=== PATIENT | male | born 1990 | race Two or more races ===

== ENCOUNTER 2022-09-22 05:36 | Emergency (ER) | payer MEDICAID ==
[~2022-09-22] VITALS: Ht 170.2 cm; Wt 115.0 kg
[2022-09-22 06:48] LABS: Basophils # (auto) 0.1 10 ^3/uL (0-0.2); Basophils % (auto) 0.9 % (0.0-2.0); Eosinophils # (auto) 0 10 ^3/uL (0-0.8); Eosinophils % (auto) 0.4 % (0.0-7.0); Hematocrit 43.1 % (41.0-53.0); Hemoglobin 15.1 g/dL (13.5-17.5); Lymphocytes # (auto) 1.2 10 ^3/uL (0.4-5.4); Lymphocytes % (auto) 12.8 % (10.0-50.0); Mean Corpuscular Hemoglobin 30.6 pg (28.0-32.0); Mean Corpuscular Hgb Conc. 35.1 g/dL (32.0-36.0); Mean Corpuscular Volume 87.1 fL (80.0-100.0); Monocytes # (auto) 0.8 10 ^3/uL (0-1.3); Monocytes % (auto) 8.7 % (0.0-12.0); Neutrophils # (auto) 7.1 10 ^3/uL (1.6-8.6); Neutrophils % (auto) 77.2 % (37.0-80.0); Red Blood Cells 4.95 10^6/uL (4.5-5.90); Red Cell Distribution Width 13.2 % (11.8-14.3); White Blood Cell 9.1 10^3/uL (4.4-10.8)
[2022-09-22 07:03] LABS: Albumin 3.8 g/dL (3.4-5.0); Calcium 8.8 mg/dL (8.5-10.1); Potassium 4.3 mmol/L (3.5-5.1)
[2022-09-22 07:06] LABS: BUN/Creatinine Ratio 10.5 (10.0-20.0); Bilirubin, Total 0.4 mg/dL (0.2-1.0); Total Protein 8.1 g/dL (6.4-8.2)
[2022-09-22 09:12] LABS: Urine Bacteria NONE SEEN /hpf (None Seen); Urine Blood Negative /uL (Negative); Urine Specific Gravity 1.012 (1.001-1.035); Urine WBC 2 /hpf (0 - 3)
[2022-09-22] MEDS ORDERED: cefTRIAXone SOD 1,000 MG VL IM ONE (10:00)
[2022-09-22] MEDS ORDERED: AZITHROMYCIN 250 MG TAB PO ONE (10:00)
[2022-09-22] MEDS ORDERED: KETOROLAC TROMETH 60MG/2ML VIAL IM ONE (10:15)
[2022-09-22 11:34] VITALS: BP 120/51
== END 2022-09-22 11:41 | disposition home or self-care (01) ==
LOC: ER 05:36
DX: R59.0 Localized enlarged lymph nodes (principal)
CPT/HCPCS: 36415; 74176; 80053; 81001; 83690; 85025; 96372; 99285; J0696; J1885

== ENCOUNTER 2023-04-12 02:52 | Emergency (ER) | payer MEDICAID ==
[~2023-04-12] VITALS: Ht 170.2 cm; Wt 111.3 kg
[2023-04-12 03:33] LABS: Basophils # (auto) 0.2 10 ^3/uL (0-0.2); Eosinophils # (auto) 0.3 10 ^3/uL (0-0.8); Eosinophils % (auto) 2.7 % (0.0-7.0); Hematocrit 45.3 % (41.0-53.0); Hemoglobin 14.9 g/dL (13.5-17.5); Lymphocytes # (auto) 2.3 10 ^3/uL (0.4-5.4); Lymphocytes % (auto) 23.7 % (10.0-50.0); Mean Corpuscular Hgb Conc. 32.8 g/dL (32.0-36.0); Mean Corpuscular Volume 91.3 fL (80.0-100.0); Neutrophils # (auto) 5.9 10 ^3/uL (1.6-8.6); Neutrophils % (auto) 61.6 % (37.0-80.0); Nucleated Red Blood Cells % 0.5 %; Red Blood Cells 4.96 10^6/uL (4.5-5.90); Red Cell Distribution Width 13.6 % (11.8-14.3); White Blood Cell 9.5 10^3/uL (4.4-10.8)
[2023-04-12 03:45] LABS: Alanine Aminotransferase 16 U/L (7-40); Albumin 4.4 g/dL (3.2-4.8); Alkaline Phosphatase 85 U/L (46-116); Anion Gap 7 (5-15); Aspartate Aminotransferase 9 U/L (13-40); BUN/Creatinine Ratio 8.1 (10.0-20.0); Blood Urea Nitrogen 7 mg/dL (9-23); Carbon Dioxide 27 mmol/L (20-30); Chloride 109 mmol/L (98-107); Glucose 107 mg/dL (74-106); Potassium 3.8 mmol/L (3.5-5.1); Sodium 143 mmol/L (136-145)
[2023-04-12 03:46] LABS: Bilirubin, Total 0.4 mg/dL (0.2-1.0); Total Protein 7.3 g/dL (5.7-8.2)
[2023-04-12] MEDS ORDERED: IOHEXOL 350 MG/ML 100ML IJ ONE (03:52)
[2023-04-12 04:07] LABS: Magnesium 2.2 mg/dL (1.6-2.6)
[2023-04-12] MEDS ORDERED: METH4PAK PO (06:18)
[2023-04-12] MEDS ORDERED: DIPH25CA66 PO (06:18)
[2023-04-12 06:21] VITALS: BP 118/74; PULSE 87; RESP 20; TEMP 98.5; O2SAT 99
== END 2023-04-12 06:31 | disposition home or self-care (01) ==
LOC: ER 02:52
DX: R06.02 Shortness of breath (principal); R79.1 Abnormal coagulation profile; R07.89 Other chest pain; Z79.899 Other long term (current) drug therapy
CPT/HCPCS: 36415; 71046; 71275; 80053; 83735; 83880; 84484; 85025; 85379; 93005; 93971; 99285; Q9967

== ENCOUNTER 2023-04-16 02:38 | Emergency (ER) | payer MEDICAID ==
[~2023-04-16] VITALS: Ht 170.2 cm; Wt 110.8 kg
[~2023-04-16 02:38] MED LIST: DIPH25CA66 PO; METH4PAK PO
[2023-04-16 03:17] LABS: Basophils # (auto) 0 10 ^3/uL (0-0.2); Basophils % (auto) 0.2 % (0.0-2.0); Eosinophils # (auto) 0 10 ^3/uL (0-0.8); Eosinophils % (auto) 0.1 % (0.0-7.0); Hematocrit 48.9 % (41.0-53.0); Hemoglobin 16.4 g/dL (13.5-17.5); Lymphocytes # (auto) 1.3 10 ^3/uL (0.4-5.4); Lymphocytes % (auto) 8.4 % (10.0-50.0); Mean Corpuscular Hemoglobin 29.6 pg (28.0-32.0); Mean Corpuscular Hgb Conc. 33.5 g/dL (32.0-36.0); Mean Corpuscular Volume 88.4 fL (80.0-100.0); Monocytes # (auto) 1.4 10 ^3/uL (0-1.3); Monocytes % (auto) 9.6 % (0.0-12.0); Neutrophils # (auto) 12.2 10 ^3/uL (1.6-8.6); Neutrophils % (auto) 81.7 % (37.0-80.0); Nucleated Red Blood Cells % 0.3 %; Red Blood Cells 5.52 10^6/uL (4.5-5.90); Red Cell Distribution Width 13.9 % (11.8-14.3)
[2023-04-16 03:30] LABS: Alanine Aminotransferase 18 U/L (7-40); Albumin 4.6 g/dL (3.2-4.8); Alkaline Phosphatase 82 U/L (46-116); Anion Gap 5 (5-15); Aspartate Aminotransferase 10 U/L (13-40); BUN/Creatinine Ratio 13.3 (10.0-20.0); Blood Urea Nitrogen 12 mg/dL (9-23); Calcium 9.2 mg/dL (8.7-10.4); Carbon Dioxide 31 mmol/L (20-30); Chloride 102 mmol/L (98-107); Glucose 155 mg/dL (74-106); Lipase 37 U/L (12-53); Potassium 4.4 mmol/L (3.5-5.1); Sodium 138 mmol/L (136-145)
[2023-04-16 03:31] LABS: Bilirubin, Total 0.6 mg/dL (0.2-1.0); Total Protein 7.8 g/dL (5.7-8.2)
[2023-04-16 07:12] LABS: Urine Bacteria NONE SEEN /hpf (None Seen); Urine Blood Negative /uL (Negative); Urine Clarity Clear (Clear); Urine Color Yellow (Yellow); Urine Mucus FEW (None Seen); Urine Protein, UAD 1+ (Negative); Urine Specific Gravity 1.036 (1.001-1.035); Urine Urobilinogen Normal (Negative); Urine WBC 6 /hpf (0 - 3); Urine pH 5.5 (5.0-8.0)
[2023-04-16 07:16] LABS: Amphetamine Screen, Urine Neg (NEGATIVE); Barbiturate Scree,Urine Neg (NEGATIVE); Benzodiazephine Screen, Urine Neg (NEGATIVE); Cocaine Screen, Urine Neg (NEGATIVE); Opiate Scree,Urine Neg (NEGATIVE)
[2023-04-16 07:17] LABS: Cannabinoid Screen, Urine Neg (NEGATIVE); Phencyclidine Screen, Urine Neg (NEGATIVE)
[2023-04-16] MEDS ORDERED: cefTRIAXone SOD 1,000 MG VL IM ONE (07:45)
[2023-04-16 08:05] VITALS: BP 107/71; PULSE 121; RESP 18; TEMP 97.6; O2SAT 98
[2023-04-16] MEDS ORDERED: METR-344 PO (08:34)
[2023-04-16] MEDS ORDERED: ZOFR4T PO (08:34)
== END 2023-04-16 08:52 | disposition home or self-care (01) ==
LOC: ER 02:38
DX: K52.9 Noninfective gastroenteritis and colitis, unspecified (principal); Z79.899 Other long term (current) drug therapy
CPT/HCPCS: 36415; 74176; 80053; 80307; 81001; 83690; 85025; 96372; 99285; J0696

== ENCOUNTER 2024-02-10 03:05 | Inpatient (IN) | payer MEDICAID ==
[~2024-02-10] VITALS: Ht 180.3 cm; Wt 86.0 kg
[~2024-02-10 03:05] MED LIST changes: +METR-344 PO; +SEVE800T10 PO; +SODI650T PO; +ZOFR4T PO
[2024-02-10 03:20] VITALS: PULSE 103; RESP 14; O2SAT 100
[2024-02-10] MEDS: SODIUM CHLORIDE 0.9% 1,000 ML IV ONE ×2 (03:41→04:04)
[2024-02-10] MEDS: MORPHINE SULFATE 4 MG/ML SYR/VIAL IV ONE (03:41)
[2024-02-10] MEDS: ONDANSETRON HCL 4 MG/2 ML VIAL IV ONE (03:43)
[2024-02-10] MEDS: KETOROLAC TROMETH 30 MG/ML 1ML VIAL IV ONE (04:03)
[2024-02-10 04:21] LABS: Hemoglobin 11.2 g/dL (13.5-17.5); Platelet Count (auto) 271 10^3/uL (140-450)
[2024-02-10 04:27] LABS: Hematocrit 34.5 % (41.0-53.0); Mean Corpuscular Hemoglobin 30.4 pg (28.0-32.0); Mean Corpuscular Hgb Conc. 32.5 g/dL (32.0-36.0); Mean Corpuscular Volume 93.4 fL (80.0-100.0); Red Blood Cells 3.69 10^6/uL (4.5-5.90); Red Cell Distribution Width 16.5 % (11.8-14.3)
[2024-02-10 04:30] LABS: Chloride 109 mmol/L (98-107); Sodium 141 mmol/L (136-145)
[2024-02-10 04:31] LABS: Anion Gap 19 (5-15); Calcium 7.9 mg/dL (8.7-10.4); Carbon Dioxide 13 mmol/L (20-31)
[2024-02-10 04:36] LABS: BUN/Creatinine Ratio 16.7 (10.0-20.0); Glucose 237 mg/dL (74-106)
[2024-02-10 04:55] LABS: Potassium 5.8 mmol/L (3.5-5.1); White Blood Cell 46.9 10^3/uL (4.4-10.8)
[2024-02-10 04:56] LABS: Basophils % (manual) 0 (0.0-2.0); Blast Cells 0; Blood Urea Nitrogen 93 mg/dL (9-23); Eosinophils % (manual) 0 (0-7); Lymphocytes % (manual) 0 (10.0-50.0); Metamyelocytes % 0; Myelocytes % 0; Promyelocytes % 0; Reactive Lymphocytes 0
[2024-02-10] MEDS: SODIUM ZIRCONIUM CYCL 10 GM PAK PO ONE (05:13)
[2024-02-10] MEDS: InsuLIN REG 1unit/0.01ml Soln (100units/ml) IV ONE (05:13)
[2024-02-10] MEDS: CALCIUM GLUC 1,000mg/50ml-NS 50 ML IV ONE (05:14)
[2024-02-10] MEDS: DEXTROSE (50%) 50ML SYRG IV ONE (05:14)
[2024-02-10] MEDS: SODIUM BICARB 8.4% 50Meq/50ml SYR INJ IV ONE (05:15)
[2024-02-10] MEDS: ALBUTEROL SULF 2.5 MG/0.5ML(0.5%) NEB SOLN NEB ONE (05:19)
[2024-02-10] MEDS: FUROSEMIDE 20 MG/2 ML VIAL IV ONE (05:34)
[2024-02-10] MEDS: metroNIDAZOLE 500MG/100ML 100 ML IV ONE (05:34)
[2024-02-10 06:21] LABS: Band Neutrophils % (manual) 1; Monocytes % (manual) 4 (0-12); Platelet Estimate Adequate
[2024-02-10] MEDS: PIPERACILLIN-TAZOB 3.375GM 100 ML IV ONE (06:21)
[2024-02-10 07:30] VITALS: PULSE 95; RESP 18; O2SAT 97
[2024-02-10] MEDS: SODIUM BICARB 8.4% 50Meq/50ml SYR Vial IV ONE (09:25)
[2024-02-10] MEDS: BUMETANIDE 2.5mg/10ml (0.25 mg/ml) INJ IV ONE (09:26)
[2024-02-10] MEDS ORDERED: HYDROcodone-ACET 5/325MG TAB PO PRN (10:00)
[2024-02-10] MEDS ORDERED: cefTRIAXone 2GM/50ML D5W 50 ML IV SCH ×2 (10:00→10:15)
[2024-02-10] MEDS ORDERED: MORPHINE SULFATE INJ 2 MG/ml SYRG IV PRN (10:00)
[2024-02-10] MEDS ORDERED: DOCUSATE SOD 100 MG CAP PO PRN ×2 (10:00→10:15)
[2024-02-10] MEDS ORDERED: ONDANSETRON HCL 4 MG/2 ML VIAL IV PRN (10:00)
[2024-02-10] MEDS ORDERED: SODIUM CHLORIDE 0.9% 1,000 ML IV SCH (10:00)
[2024-02-10] MEDS ORDERED: LACTULOSE 20Gm/30ML SOLN PO ONE (10:00)
[2024-02-10] MEDS ORDERED: ACETAMINOPHEN 325 MG TAB PO PRN ×2 (10:00→10:15)
[2024-02-10 10:08] LABS: Urine Bacteria FEW /hpf (None Seen); Urine Blood Negative /uL (Negative); Urine Clarity Turbid (Clear); Urine Color Light-Yellow (Yellow); Urine Protein, UAD 1+ (Negative); Urine Specific Gravity 1.011 (1.001-1.035); Urine Urobilinogen Normal (Negative); Urine WBC 37 /hpf (0 - 3); Urine pH 5.5 (5.0-9.0)
[2024-02-10] MEDS ORDERED: FIN5T PO (10:15)
[2024-02-10] MEDS ORDERED: AMLO1TAB23 PO (10:15)
[2024-02-10] MEDS ORDERED: CARV3.1240 PO (10:15)
[2024-02-10] MEDS ORDERED: DEXTROSE (50%) 50ML SYRG IV PRN (10:15)
[2024-02-10] MEDS ORDERED: TAMS0.4C39 PO (10:15)
[2024-02-10 10:33] LABS: Triglycerides 125 mg/dL (< 150)
[2024-02-10 10:34] LABS: LDL Cholesterol 121 mg/dL (< 100)
[2024-02-10 10:35] LABS: Cholesterol 193 mg/dL (< 200); HDL Cholesterol 52 mg/dL (40-59)
[2024-02-10] MEDS: ONDANSETRON HCL 4 MG/2 ML VIAL IV PRN (11:12)
[2024-02-10] MEDS: LACTULOSE 20Gm/30ML SOLN PO ONE (11:12)
[2024-02-10] MEDS: amLODIPine BESYLATE 5 MG TAB PO SCH (11:12)
[2024-02-10] MEDS: MORPHINE SULFATE INJ 2 MG/ml SYRG IV PRN (11:13)
[2024-02-10] MEDS: SODIUM CHLORIDE 0.9% 1,000 ML IV SCH (11:14)
[2024-02-10] MEDS: ACCU-CHEK COMFORT CURVE STRIP VI SCH (11:51)
[2024-02-10] MEDS: InsuLIN REG 1unit/0.01ml Soln (100units/ml) SC SCH ×2 (11:51→21:30)
[2024-02-10] MEDS: cefTRIAXone 1GM/50ML D5W 50 ML IV SCH (13:19)
[2024-02-10] MEDS: SEVELAMER 800 MG TAB PO SCH (18:10)
[2024-02-10 20:19] VITALS: PULSE 85; RESP 14; O2SAT 96
[2024-02-10] MEDS: CARVEDILOL 3.125 MG TAB PO SCH (21:38)
[2024-02-10] MEDS: SODIUM ZIRCONIUM CYCL 10 GM PAK PO SCH (21:38)
[2024-02-10] MEDS: DOCUSATE SOD 100 MG CAP PO SCH (21:39)
[2024-02-10 22:30] VITALS: BP 116/74; PULSE 89; RESP 18; TEMP 97.7; O2SAT 95
[2024-02-10 22:56] VITALS: PULSE 89; RESP 18; O2SAT 97
[2024-02-11] VITALS (7 sets, daily range): BP systolic 108–128; BP diastolic 66–90; PULSE 68–132; RESP 18–20; TEMP 97.8–98.7; O2SAT 90–94
[2024-02-11] MEDS: TAMSULOSIN HYDROCHLORIDE 0.4 MG CAP PO SCH (06:52)
[2024-02-11 07:00] LABS: Hemoglobin 10.5 g/dL (13.5-17.5)
[2024-02-11 07:07] LABS: Hematocrit 31.8 % (41.0-53.0); Mean Corpuscular Hemoglobin 30.1 pg (28.0-32.0); Mean Corpuscular Volume 91.2 fL (80.0-100.0); Platelet Count (auto) 229 10^3/uL (140-450); Red Blood Cells 3.49 10^6/uL (4.5-5.90); Red Cell Distribution Width 15.9 % (11.8-14.3)
[2024-02-11 07:16] LABS: Alanine Aminotransferase 62 U/L (7-40); Albumin 3.3 g/dL (3.2-4.8); Alkaline Phosphatase 100 U/L (46-116); Anion Gap 12 (5-15); Aspartate Aminotransferase 47 U/L (13-40); BUN/Creatinine Ratio 14.8 (10.0-20.0); Blood Urea Nitrogen 79 mg/dL (9-23); Calcium 6.9 mg/dL (8.7-10.4); Carbon Dioxide 20 mmol/L (20-31); Chloride 105 mmol/L (98-107); Potassium 4.7 mmol/L (3.5-5.1); Sodium 137 mmol/L (136-145)
[2024-02-11 07:17] LABS: Bilirubin, Total 0.9 mg/dL (0.2-1.0); Glucose 130 mg/dL (74-106); Total Protein 5.9 g/dL (5.7-8.2)
[2024-02-11 07:46] LABS: Band Neutrophils % (manual) 0; Basophils % (manual) 0 (0.0-2.0); Blast Cells 0; Eosinophils % (manual) 0 (0-7); Metamyelocytes % 0; Myelocytes % 0; Promyelocytes % 0; Reactive Lymphocytes 0
[2024-02-11] MEDS ORDERED: cefTRIAXone 1GM/50ML D5W 50 ML IV SCH (09:00)
[2024-02-11] MEDS: FINASTERIDE 5 MG TAB PO SCH (09:46)
[2024-02-11] MEDS: PANTOPRAZOLE 40 MG/10 ML VIAL INJ IV SCH (09:48)
[2024-02-11 10:15] LABS: Lymphocytes % (manual) 4 (10.0-50.0); Monocytes % (manual) 6 (0-12); Platelet Estimate Adequate
[2024-02-11 11:39] LABS: Magnesium 1.7 mg/dL (1.6-2.6)
[2024-02-11 11:41] LABS: Phosphorus 6.2 mg/dL (2.4-5.1)
[2024-02-11] MEDS: CALCIUM ACETATE 667 MG CAP PO SCH (12:03)
[2024-02-11 13:29] LABS: Hepatitis B Surface Antigen Negative (Negative)
[2024-02-11 13:50] LABS: Hepatitis C Antibody Negative (Negative)
[2024-02-11] MEDS: FLEET ENEMA(ADULT) 135 ML PR ONE (17:56)
[2024-02-11] MEDS: PIPERACILLIN-TAZOB 3.375GM 100 ML IV SCH (17:57)
[2024-02-12] VITALS (8 sets, daily range): BP systolic 111–140; BP diastolic 69–90; PULSE 73–132; RESP 17–20; TEMP 97.8–98.3; O2SAT 91–100
[2024-02-12 06:27] LABS: Hematocrit 29.2 % (41.0-53.0); Hemoglobin 9.7 g/dL (13.5-17.5); Mean Corpuscular Hemoglobin 30.4 pg (28.0-32.0); Mean Corpuscular Hgb Conc. 33.3 g/dL (32.0-36.0); Mean Corpuscular Volume 91.2 fL (80.0-100.0); Platelet Count (auto) 210 10^3/uL (140-450); Red Cell Distribution Width 15.6 % (11.8-14.3)
[2024-02-12 06:38] LABS: Alanine Aminotransferase 79 U/L (7-40); Albumin 3.1 g/dL (3.2-4.8); Alkaline Phosphatase 94 U/L (46-116); Anion Gap 12 (5-15); Aspartate Aminotransferase 27 U/L (13-40); BUN/Creatinine Ratio 13.2 (10.0-20.0); Blood Urea Nitrogen 70 mg/dL (9-23); Calcium 6.8 mg/dL (8.7-10.4); Carbon Dioxide 20 mmol/L (20-31); Chloride 104 mmol/L (98-107); Glucose 96 mg/dL (74-106); Potassium 4.3 mmol/L (3.5-5.1); Sodium 136 mmol/L (136-145); Total Protein 5.6 g/dL (5.7-8.2)
[2024-02-12 06:39] LABS: Bilirubin, Total 0.8 mg/dL (0.2-1.0)
[2024-02-12 06:47] LABS: White Blood Cell 32.4 10^3/uL (4.4-10.8)
[2024-02-12 06:49] LABS: Band Neutrophils % (manual) 0; Basophils % (manual) 0 (0.0-2.0); Blast Cells 0; Eosinophils % (manual) 0 (0-7); Metamyelocytes % 0; Myelocytes % 0; Promyelocytes % 0; Reactive Lymphocytes 0
[2024-02-12 08:30] LABS: Lymphocytes % (manual) 5 (10.0-50.0); Monocytes % (manual) 7 (0-12); Platelet Estimate Adequate
[2024-02-12] MEDS: IOHEXOL 300 MG/ML 100ML BOTTLE IJ ONE (11:01)
[2024-02-12] MEDS: CALCITRIOL 0.25 MCG CAP PO SCH (12:26)
[2024-02-13] VITALS (12 sets, daily range): BP systolic 96–120; BP diastolic 54–83; PULSE 97–131; RESP 16–24; TEMP 97.2–98.2; O2SAT 95–100
[2024-02-13] MEDS: HYDROcodone-ACET 5/325MG TAB PO PRN (01:33)
[2024-02-13 06:53] LABS: Basophils # (auto) 0 10 ^3/uL (0-0.2); Basophils % (auto) 0.2 % (0.0-2.0); Eosinophils # (auto) 0.1 10 ^3/uL (0-0.8); Eosinophils % (auto) 0.5 % (0.0-7.0); Hematocrit 29.2 % (41.0-53.0); Hemoglobin 9.6 g/dL (13.5-17.5); Lymphocytes # (auto) 2.2 10 ^3/uL (0.4-5.4); Lymphocytes % (auto) 9.5 % (10.0-50.0); Mean Corpuscular Hemoglobin 30.1 pg (28.0-32.0); Mean Corpuscular Volume 91.1 fL (80.0-100.0); Monocytes # (auto) 1.9 10 ^3/uL (0-1.3); Monocytes % (auto) 8.2 % (0.0-12.0); Neutrophils # (auto) 18.9 10 ^3/uL (1.6-8.6); Neutrophils % (auto) 81.6 % (37.0-80.0); Platelet Count (auto) 209 10^3/uL (140-450); Red Cell Distribution Width 15.8 % (11.8-14.3); White Blood Cell 23.2 10^3/uL (4.4-10.8)
[2024-02-13 07:00] LABS: Chloride 105 mmol/L (98-107); Sodium 135 mmol/L (136-145)
[2024-02-13 07:01] LABS: Anion Gap 10 (5-15); Carbon Dioxide 20 mmol/L (20-31)
[2024-02-13 07:02] LABS: Calcium 7.4 mg/dL (8.7-10.4)
[2024-02-13 07:06] LABS: Glucose 118 mg/dL (74-106)
[2024-02-13 07:07] LABS: BUN/Creatinine Ratio 11.9 (10.0-20.0); Blood Urea Nitrogen 63 mg/dL (9-23)
[2024-02-13] MEDS ORDERED: AMPICILLIN & SULBACTAM SODIUM 3 GM in SODIUM CHL 0.9% 100 ML IV SCH (10:15)
[2024-02-13] MEDS: BISACODYL 10 MG RECT SUPP PR ONE (12:04)
[2024-02-13] MEDS: AMPICILLIN & SULBACTAM SODIUM 3 GM in SODIUM CHL 0.9% 100 ML IV SCH (12:21)
[2024-02-13] MEDS: METOPROLOL SUCCINATE XL 50 MG TAB PO ONE (17:15)
[2024-02-13] MEDS: AMIODARONE BOLUS KIT 100 ML IV ONE (17:53)
[2024-02-13] MEDS: AMIODARONE 450mg/250ml AE 250 ML IV SCH ×2 (18:13→23:00)
[2024-02-13] MEDS: APIXABAN 5 MG TAB PO SCH (22:08)
[2024-02-14] VITALS (7 sets, daily range): BP systolic 118–141; BP diastolic 79–101; PULSE 74–123; RESP 16–20; TEMP 98–98.6; O2SAT 93–97
[2024-02-14] MEDS ORDERED: MEROPENEM 1GM IVPB 50 ML IV SCH (05:15)
[2024-02-14] MEDS: MEROPENEM 1GM IVPB 50 ML IV SCH (05:15)
[2024-02-14 06:34] LABS: Basophils # (auto) 0.1 10 ^3/uL (0-0.2); Basophils % (auto) 0.3 % (0.0-2.0); Eosinophils # (auto) 0.1 10 ^3/uL (0-0.8); Eosinophils % (auto) 0.4 % (0.0-7.0); Hematocrit 30.4 % (41.0-53.0); Lymphocytes # (auto) 1.7 10 ^3/uL (0.4-5.4); Lymphocytes % (auto) 8.4 % (10.0-50.0); Mean Corpuscular Hemoglobin 29.6 pg (28.0-32.0); Mean Corpuscular Hgb Conc. 32.8 g/dL (32.0-36.0); Mean Corpuscular Volume 90.5 fL (80.0-100.0); Monocytes # (auto) 1.6 10 ^3/uL (0-1.3); Neutrophils # (auto) 16.9 10 ^3/uL (1.6-8.6); Neutrophils % (auto) 82.9 % (37.0-80.0); Platelet Count (auto) 245 10^3/uL (140-450); Red Blood Cells 3.36 10^6/uL (4.5-5.90); Red Cell Distribution Width 15.7 % (11.8-14.3); White Blood Cell 20.4 10^3/uL (4.4-10.8)
[2024-02-14 06:49] LABS: Uric Acid 8.3 mg/dL (3.7-9.2)
[2024-02-14 06:52] LABS: Alanine Aminotransferase 46 U/L (7-40); Albumin 3.3 g/dL (3.2-4.8); Alkaline Phosphatase 160 U/L (46-116); Anion Gap 13 (5-15); Aspartate Aminotransferase 13 U/L (13-40); BUN/Creatinine Ratio 11.6 (10.0-20.0); Blood Urea Nitrogen 60 mg/dL (9-23); Calcium 7.8 mg/dL (8.7-10.4); Carbon Dioxide 18 mmol/L (20-31); Chloride 101 mmol/L (98-107); Glucose 120 mg/dL (74-106); Potassium 3.9 mmol/L (3.5-5.1); Sodium 132 mmol/L (136-145)
[2024-02-14 06:53] LABS: Bilirubin, Total 0.5 mg/dL (0.2-1.0); Phosphorus 5.3 mg/dL (2.4-5.1); Total Protein 6.1 g/dL (5.7-8.2)
[2024-02-14] MEDS: METOPROLOL SUCCINATE XL 50 MG TAB PO SCH (10:44)
[2024-02-15] VITALS (8 sets, daily range): BP systolic 124–143; BP diastolic 81–96; PULSE 79–84; RESP 18–20; TEMP 36.6; O2SAT 93–99
[2024-02-15] MEDS: AMIODARONE HCL 200 MG TAB PO SCH (09:33)
[2024-02-15 11:16] LABS: Alanine Aminotransferase 32 U/L (7-40); Albumin 3.2 g/dL (3.2-4.8); Alkaline Phosphatase 146 U/L (46-116); Anion Gap 8 (5-15); Aspartate Aminotransferase 9 U/L (13-40); BUN/Creatinine Ratio 10.6 (10.0-20.0); Blood Urea Nitrogen 54 mg/dL (9-23); Calcium 7.9 mg/dL (8.7-10.4); Carbon Dioxide 21 mmol/L (20-31); Chloride 108 mmol/L (98-107); Glucose 109 mg/dL (74-106); Magnesium 1.7 mg/dL (1.6-2.6); Potassium 4.2 mmol/L (3.5-5.1); Sodium 137 mmol/L (136-145)
[2024-02-15 11:17] LABS: Bilirubin, Total 0.5 mg/dL (0.2-1.0); Total Protein 6.2 g/dL (5.7-8.2)
[2024-02-15] MEDS ORDERED: METO-6 PO (15:45)
[2024-02-15] MEDS ORDERED: APIX5TAB PO (15:45)
[2024-02-15] MEDS ORDERED: AMIO200T13 PO (15:45)
[2024-02-15] MEDS ORDERED: BACDST PO (15:45)
== END 2024-02-15 20:28 | disposition home or self-care (01) | DRG 465 ==
LOC: EDBD 03:05 → ER 03:05 → TELE 09:56 → TELE-WESTW 21:47
PROVIDERS: ADMIT Registered Nurse; ATTEND Student in an Organized Health Care Education/Training Program
PROC: BT111ZZ Fluoroscopy of Right Kidney using Low Osmolar Contrast (ICD-10-PCS; principal; 2024-02-12)
DX: N13.8 Other obstructive and reflux uropathy (principal); N17.0 Acute kidney failure with tubular necrosis; R65.11 Systemic inflammatory response syndrome (SIRS) of non-infectious origin with acute organ dysfunction; E83.39 Other disorders of phosphorus metabolism; D63.1 Anemia in chronic kidney disease; I13.2 Hypertensive heart and chronic kidney disease with heart failure and with stage 5 chronic kidney disease, or end stage renal disease; I27.20 Pulmonary hypertension, unspecified; E86.9 Volume depletion, unspecified; I48.91 Unspecified atrial fibrillation; K56.41 Fecal impaction; N25.81 Secondary hyperparathyroidism of renal origin; E87.5 Hyperkalemia; N39.0 Urinary tract infection, site not specified; N18.5 Chronic kidney disease, stage 5; N20.0 Calculus of kidney; N40.1 Benign prostatic hyperplasia with lower urinary tract symptoms; I50.22 Chronic systolic (congestive) heart failure; I34.0 Nonrheumatic mitral (valve) insufficiency; I07.1 Rheumatic tricuspid insufficiency; I34.81 Nonrheumatic mitral (valve) annulus calcification; E11.22 Type 2 diabetes mellitus with diabetic chronic kidney disease; G89.29 Other chronic pain; Z93.6 Other artificial openings of urinary tract status; Z79.899 Other long term (current) drug therapy; Z87.891 Personal history of nicotine dependence; Z91.199 Patient's noncompliance with other medical treatment and regimen due to unspecified reason; Z88.8 Allergy status to other drugs, medicaments and biological substances
CPT/HCPCS: 36415; 50430; 74176; 74425; 80048; 80053; 80061; 81001; 82306; 82962; 83036; 83735; 83880; 83970; 84100; 84132; 84443; 84550; 85007; 85025; 85027; 86803; 87040; 87086; 87340; 93005; 93306; 94640; 96361; 96365; 96375; 99291; G0378; J1815; J1885; J2405; J2470; J2543; J3490

== ENCOUNTER 2024-02-19 13:57 | Inpatient (IN) | payer MEDICAID ==
[~2024-02-19] VITALS: Ht 182.9 cm; Wt 66.2 kg
[2024-02-19] VITALS (16 sets, daily range): BP systolic 86–132; BP diastolic 48–91; PULSE 70–89; RESP 22–30; TEMP 95.7–96.6; O2SAT 78–100
[~2024-02-19 13:57] MED LIST changes: +AMIO200T13 PO; +AMLO1TAB23 PO; +APIX5TAB PO; +BACDST PO; +CARV3.1240 PO; -DIPH25CA66 PO; +FIN5T PO; -METH4PAK PO; +METO-289 PO; +METO-6 PO; -METR-344 PO; +TAMS0.4C39 PO; -ZOFR4T PO
[2024-02-19] MEDS: ROCURONIUM 10MG/ML 10ML VIAL IV ONE ×2 (14:14→14:19)
[2024-02-19] MEDS: ETOMIDATE (2MG/ML) 20ML VIAL IV ONE ×2 (14:18→14:51)
--- NOTE | 2024-02-19 14:27 | ED.PDOC ---
SOB-HPI HPI Comments 52-year-old male brought in by EMS on CPAP presents with a chief complaint of SOB. Patient was sating at 88% on CPAP and was successfully intubated upon bedside evaluation for respiratory insufficiency at 14:18. Patient unable to provide further medical information at this time due to intubation status. 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, Medications, Allergies Information Source: Emergency Med Personnel Mode of Arrival: EMS Severity: Moderate Timing: Minutes Duration: Since onset Context: At Rest PE Risk Factors: None Prehospital treatment: C-Pap Past Medical History PAST MEDICAL HISTORY: CHF, CKF, DM, HTN Family History Family History: No family hx of Cancer, No family hx of DM, No family hx of Heart emily Social History Smoker: Non-Smoker Alcohol: Occasionally Drugs: Denies Drug Use Lives In: Home Constitutional: denies: chills, diaphoresis, fatigue, fever, malaise, sweats, weakness, others EENTM: denies: blurred vision, double vision, ear bleeding, ear discharge, ear drainage, ear pain, ear ringing, eye pain, eye redness, hearing loss, mouth pain, mouth swelling, nasal discharge, nose bleeding, nose congestion, nose pain, photophobia, tearing, throat pain, throat swelling, voice changes, others Respiratory: reports: shortness of breath; denies: cough, hemoptysis, orthopnea, SOB at rest, SOB with excertion, stridor, wheezing, others Cardiovascular: denies: chest pain, dizzy spells, diaphoresis, Dyspnea on exertion, edema, irregular heart beat, left arm pain, lightheadedness, palpitations, PND, syncope, others Gastrointestinal: denies: abdomen distended, abdominal pain, blood streaked bowels, constipated, diarrhea, dysphagia, difficulty swallowing, hematemesis, melena, nausea, poor appetite, poor fluid intake, rectal bleeding, rectal pain, vomiting, others Genitourinary: denies: burning, dysuria, flank pain, frequency, hematuria, incontinence, penile discharge, penile sore, pain, testicle pain, testicle swell ing, urgency, others Neurological: denies: dizziness, fainting, headache, left sided numbness, left sided weakness, numbness, paresthesia, pre-existing deficit, right sided numbness, right sided weakness, seizure, speech problems, tingling, tremors, weakness, others Musculoskeletal: denies: back pain, gout, joint pain, joint swelling, muscle pain, muscle stiffness, neck pain, others Integumetry: denies: bruises, change in color, change in hair/nails, dryness, laceration, lesions, lumps, rash, wounds, others Allergic/Immunocompromised: denies: Difficulty Healing, Frequent Infections, Hives, Itching, others Hematologic/Lymphatic: denies: anemia, blood clots, easy bleeding, easy bruising, swollen glands, others Endocrine: denies: excessive hunger, excessive sweating, excessive thirst, excessive urination, flushing, intolerance to cold, intolerance to heat, unexplained weight gain, unexplained weight loss, others Psychiatric: denies: anxiety, bipolar disorder, depression, hopeless, panic disorder, schizophrenia, sleepless, suicidal, others All Other Systems: Reviewed and Negative Physical Exam General Appearance: No Apparent Distress, Normal HEENT: Normal ENT Inspection, Pharynx Normal, TMs Normal Neck: Full Range of Motion, Non-Tender, Normal, Normal Inspection Respiratory: Chest Non-Tender, Lungs Clear, No Accessory Muscle Use, No Respiratory Distress, Normal Breath Sounds Cardiovascular: No Edema, No JVD, No Murmur, No Gallop, Normal Peripheral Pulses, Regular Rate/Rhythm Breast Exam: Deferred Gastrointestinal: No Organomegaly, Non Tender, No Pulsatile Mass, Normal Bowel Sounds, Soft Genitalia: Deferred Pelvic: Deferred Rectal: Deferred Extremities: No calf tenderness, Normal capillary refill, Normal inspection, Normal range of motion, Non-tender, No pedal edema Musculoskeletal : Apperance: Normal Neurologic: Alert, tactical air control party II-XII nml as Tested, No Motor Deficits, Normal Affect, Normal Mood, No Sensory Deficits Cerebellar Function: Normal Reflexes: Normal Skin: Dry, Normal Color, Warm Lymphatic: No Adenopathy Was a procedure done? Was a procedure done?: Yes Sedation Sedation?: Yes Informed consent obtained: Yes Sedation start time: 14:18 Sedation end time: 14:20 Sedation total time: 2 minutes Sedation provider statement: 20mg Etomidate @ 14:18; 100mg Rocuronium @ 14:19 Intubation Indication: Respiratory Insufficiency Prep: Preoxygenation Pretreated with: Sedation Medicated with: Other (Etomidate, Rocuronium ) Intubation Approach: Orotracheal Intubation size: cm (24) Informed consent obtained: Yes Risks/benefits/alt described: Yes Differential Dx Differential Diagnosis: Bronchitis, CHF, COPD, Pneumonia, Respiratory Distress X-Ray, Labs, Meds, VS Vital Signs Date Time Temp Pulse Resp B/P (MAP) Pulse Ox O2 Delivery O2 Flow Rate FiO2 02/19/24 16:30 94 19 137/98 (111) 92 02/19/24 16:28 92 18 130/95 (107) 95 90 02/19/24 16:15 91 18 130/95 (107) 94 02/19/24 16:00 92 18 136/99 (111) 96 02/19/24 15:45 90 18 142/102 (115) 95 02/19/24 15:30 91 18 144/105 (118) 96 02/19/24 15:15 90 18 146/103 (117) 90 02/19/24 15:05 143/103 02/19/24 15:00 89 18 143/103 (116) 89 02/19/24 14:55 145/105 02/19/24 14:45 95 18 147/110 (122) 02/19/24 14:45 147/110 02/19/24 14:42 99 18 152/112 (125) 88 100 02/19/24 14:30 75 88 Mechanical Ventilator+ 100 100 02/19/24 14:30 99 18 156/114 (128) 85 02/19/24 14:19 142/101 02/19/24 14:10 88 02/19/24 13:57 97.7 87 28 139/84 (102) 81 Lab Test 02/19/24 15:42 02/19/24 15:37 02/19/24 14:16 Range/Units Troponin I High Sensitivity Pending 238 *H </=54 ng/L Blood Gas Specimen Type Arterial Blood Gas Sample Site Left brachial Blood Gas Patient Temperature 37.0 Arterial Blood Date Drawn [id number] Arterial Blood pH 7.131 *L 7.350-7.450 Arterial Blood Partial Pressure CO2 48.2 H 35.0-48.0 mmHg Arterial Blood Partial Pressure O2 92.2 83.0-108.0 mmHg Arterial Blood HCO3 15.7 L 21.0-28.0 mmol/L Arterial Blood Oxygen Saturation 93.6 L 94.0-98.0 % Arterial Blood Base Excess -13.2 L -2.0-3.0 mmol/L Arterial Blood Oxyhemoglobin 92.3 L 94.0-98.0 % Arterial Blood Carboxyhemoglobin 0.7 0.5-1.5 % Arterial Blood Methemoglobin 0.7 0.0-1.5 % Test N/a Blood Gas Total Hemoglobin 13.00 L 13.5-17.5 g/dL Blood Gas Set Respiration Rate 10.0 Blood Gas Modality Vent - ac FiO2 % 100.0 Blood Gas Tidal Volume 500.0 Blood Gas PEEP or CPAP 10.0 Blood Gas Critical Value Read Back Yes Blood Gas Notified Whom Dr. sahni Blood Gas Notified Time [id number] Blood Gas Notified By Anthony cordon rrt White Blood Count 24.3 H 4.4-10.8 10^3/uL Red Blood Count 3.68 L 4.5-5.90 10^6/uL Hemoglobin 10.8 L 13.5-17.5 g/dL Hematocrit 33.9 #L 41.0-53.0 % Mean Corpuscular Volume 92.0 80.0-100.0 fL Mean Corpuscular Hemoglobin 29.2 28.0-32.0 pg Mean Corpuscular Hemoglobin Concent 31.7 L 32.0-36.0 g/dL Red Cell Distribution Width 15.7 H 11.8-14.3 % Platelet Count 425 # 140-450 10^3/uL Mean Platelet Volume 8.2 6.9-10.8 fL Neutrophils (%) (Auto) 88.1 H 37.0-80.0 % Lymphocytes (%) (Auto) 5.5 L 10.0-50.0 % Monocytes (%) (Auto) 6.3 0.0-12.0 % Eosinophils (%) (Auto) 0.0 0.0-7.0 % Basophils (%) (Auto) 0.1 0.0-2.0 % Neutrophils # (Auto) 21.4 H 1.6-8.6 10 ^3/uL Lymphocytes # (Auto) 1.3 0.4-5.4 10 ^3/uL Monocytes # (Auto) 1.5 H 0-1.3 10 ^3/uL Eosinophils # (Auto) 0 0-0.8 10 ^3/uL Basophils # (Auto) 0 0-0.2 10 ^3/uL Nucleated Red Blood Cells 0.1 % Prothrombin Time 11.6 9.3-11.8 sec Prothrombin Time INR 1.10 0.9-1.15 Activated Partial Thromboplast Time 29.7 24.5-34.5 SEC Sodium Level 131 #L 136-145 mmol/L Potassium Level 4.0 3.5-5.1 mmol/L Chloride Level 104 98-107 mmol/L Carbon Dioxide Level 12 L 20-31 mmol/L Anion Gap 15 5-15 Blood Urea Nitrogen 63 H 9-23 mg/dL Creatinine 4.73 H 0.700-1.30 mg/dL Glomerular Filtration Rate Calc 14 >90 mL/min BUN/Creatinine Ratio 13.3 10.0-20.0 Serum Glucose 509 #*H 74-106 mg/dL Calcium Level 7.3 L 8.7-10.4 mg/dL Magnesium Level 1.7 1.6-2.6 mg/dL Total Bilirubin 0.4 0.2-1.0 mg/dL Aspartate Amino Transferase (AST) < 8 L 13-40 U/L Alanine Aminotransferase (ALT) 29 7-40 U/L Alkaline Phosphatase 190 H 46-116 U/L B-Type Natriuretic Peptide 2390.74 0-100 pg/mL Total Protein 6.9 5.7-8.2 g/dL Albumin 3.5 3.2-4.8 g/dL Current Medications Medications (Trade) Dose Ordered Sig/Kishan Route Start Time Stop Time Status Last Admin Propofol 100 ml @ 2.7 mls/hr Q24H IV 02/19/24 14:45 02/19/24 14:45 Etomidate 20 mg ONCE ONCE IV 02/19/24 15:00 02/19/24 15:01 DC 02/19/24 14:18 Rocuronium [place] 100 mg ONCE ONCE IV 02/19/24 15:00 02/19/24 15:01 DC 02/19/24 14:19 Cefepime HCl 50 ml @ 50 mls/hr ONCE ONCE IV 02/19/24 15:15 02/19/24 16:14 DC 02/19/24 16:08 Time of 1ST Reevaluation: 14:45 Reevaluation 1ST: Unchanged Patient Education/Counseling: Diagnosis, Treatment, Prognosis Family Education/Counseling: No Family Present Departure 1 Departure Time of Disposition: 16:56 (Patient in septic shock with respiratory failure. Patient was intubated for hypoxia, central line placed. Patient received IV antibiotics. Did not fluid bolus patient is a full 30 cc because patient appears mildly volume overloaded.) Impression: Primary Impression: Acute respiratory failure Qualified Codes: J96.01 - Acute respiratory failure with hypoxia Additional Impressions: Multifocal pneumonia Sepsis Qualified Codes: A41.9 - Sepsis, unspecified organism; R65.20 - Severe sepsis without septic shock; J96.01 - Acute respiratory failure with hypoxia Disposition: 09 ADMITTED INPATIENT Admit to: ICU Condition: Critical Critical Care Note Critical Care Time?: Yes Critical care comment: Acute hypoxic respiratory failure with sepsis Authorized and Performed by: Mercedes Sahni MD Total critical care time: Approximately 118 minutes Due to a high probability of clinically significant, life threatening deterioration, the patient required my highest level of preparedness to intervene emergently and I personally spent this critical care time directly and personally managing the patient. This critical care time included obtaining a history; examining the patient; pulse oximetry; ordering and review of studies; arranging urgent treatment with development of a management plan; evaluation of patient's response to treatment; frequent reassessment; and, discussions with other providers. This critical care time was performed to assess and manage the high probability of imminent, life-threatening deterioration that could result in multi-organ failure. It was exclusive of separately billable procedures and treating other patients and teaching time. Please see my other sections and the rest of the note for further information on patient assessment and treatment. Stability Stability form required: No Heart Score Heart Score: Heart Score Response (Comments) Value History N/A 0 EKG N/A 0 Age N/A 0 Risk Factors N/A 0 Troponin N/A 0 Total 0 I personally scribed for MERCEDES SAHNI MD ([email or web address]) on 02/19/24 at 14:27. Electronically submitted by Sigifredo Botello ([email or web address]). MERCEDES SAHNI MD Feb 19, 2024 14:27
[2024-02-19] MEDS: PROPOFOL 100 ML IV SCH (14:45)
[2024-02-19] MEDS: PROPOFOL 100 ML IV ONE (14:51)
[2024-02-19 14:57] LABS: Basophils # (auto) 0 10 ^3/uL (0-0.2); Basophils % (auto) 0.1 % (0.0-2.0); Eosinophils # (auto) 0 10 ^3/uL (0-0.8); Hematocrit 33.9 % (41.0-53.0); Hemoglobin 10.8 g/dL (13.5-17.5); Lymphocytes # (auto) 1.3 10 ^3/uL (0.4-5.4); Lymphocytes % (auto) 5.5 % (10.0-50.0); Mean Corpuscular Hemoglobin 29.2 pg (28.0-32.0); Mean Corpuscular Hgb Conc. 31.7 g/dL (32.0-36.0); Monocytes # (auto) 1.5 10 ^3/uL (0-1.3); Monocytes % (auto) 6.3 % (0.0-12.0); Neutrophils # (auto) 21.4 10 ^3/uL (1.6-8.6); Neutrophils % (auto) 88.1 % (37.0-80.0); Nucleated Red Blood Cells % 0.1 %; Platelet Count (auto) 425 10^3/uL (140-450); Red Blood Cells 3.68 10^6/uL (4.5-5.90); Red Cell Distribution Width 15.7 % (11.8-14.3); White Blood Cell 24.3 10^3/uL (4.4-10.8)
[2024-02-19 15:22] LABS: INR 1.1 (0.9-1.15); Partial Thromboplastin Time 29.7 SEC (24.5-34.5); Prothrombin Time 11.6 sec (9.3-11.8)
[2024-02-19 15:41] LABS: Base Excess -13.2 mmol/L (-2.0-3.0)
--- NOTE | 2024-02-19 15:57 | DVHNC2 ---
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 England) Indication: Hypotension, Inability to obtain IV Room prepared for procedure: Yes Test Desk Supervisor performed hand hygien: Yes Maximal sterile barrier precau: Mask/Eye shield, Sterile gown, Cap, Sterlie gloves, Large sterlie drape Skin Preparation: Providine iodine Skin preparation completely dr: Yes Insertion site: Right, Internal jugular Central line catheter type: [id number] dialysis Number of lumens: 3 Central line exchanged over a: No Antiseptic ointment applied to: No Post Assessment: Chest X-Ray, Proper placement, No Pneumothorax Informed consent obtained: Yes Risks/benefits/alt described: Yes Notes Supervised by Dr. Israel Date of Service: Feb 19, 2024 Billing Provider: MERCEDES ISRAEL MD Common Visit Codes: PROCEDURE ONLY GUIDO WILLIAMSON RESIDENT Feb 19, 2024 15:57
--- NOTE | 2024-02-19 15:59 | DVHNC2 ---
Intubation Indication: Respiratory Insufficiency, Airway Protection Prep: Preoxygenation Pretreated with: Sedation Medicated with: Other (Etomidate and rocuronium) Intubation Approach: Orotracheal Intubation size: cm (Eight inches) Informed consent obtained: Yes Risks/benefits/alt described: Yes Notes Supervised by Dr. Israel Date of Service: Feb 19, 2024 Billing Provider: MERCEDES ISRAEL MD Common Visit Codes: PROCEDURE ONLY GUIDO WILLIAMSON RESIDENT Feb 19, 2024 15:58
[2024-02-19] MEDS: CEFEPIME 2GM/50ML NS 50 ML IV ONE (16:08)
[2024-02-19 16:18] LABS: Alanine Aminotransferase 29 U/L (7-40); Albumin 3.5 g/dL (3.2-4.8); Alkaline Phosphatase 190 U/L (46-116); Anion Gap 15 (5-15); Aspartate Aminotransferase < 8 U/L (13-40); BUN/Creatinine Ratio 13.3 (10.0-20.0); Bilirubin, Total 0.4 mg/dL (0.2-1.0); Blood Urea Nitrogen 63 mg/dL (9-23); Calcium 7.3 mg/dL (8.7-10.4); Carbon Dioxide 12 mmol/L (20-31); Chloride 104 mmol/L (98-107); Magnesium 1.7 mg/dL (1.6-2.6); Total Protein 6.9 g/dL (5.7-8.2)
[2024-02-19 16:19] LABS: Sodium 131 mmol/L (136-145)
--- NOTE | 2024-02-19 16:22 | DVH ---
CHEST RADIOGRAPH Indication:POST INTUBATION Technique: Single frontal view of the chest was obtained Comparison: None FINDINGS: Lines and Tubes: Endotracheal tube terminates about 7.6 cm above the claudio. Right IJ approach centra l venous catheter terminating over the distal SVC. Enteric tube is noted with the side port above the GE junction. Recommend advancing about 11 cm for more optimal positioning. Lungs: Diffuse interstitial opacities of bilateral lungs with alveolar opacities bilateral mid and lo wer lung zones. Indistinctness of the right hemidiaphragm. No pneumothorax. Cardiomediastinal contours: Unremarkable Bones: No acute osseous abnormality. IMPRESSION: Enteric tube with side port above the GE junction. Recommend advancing about level more cm for more optimal positioning. Endotracheal tube terminates about 7.6 cm above the claudio. Right IJ approach central venous catheter in satisfactory position. Bilateral multifocal pneumonia.
[2024-02-19 16:25] LABS: Glucose 509 mg/dL (74-106)
[2024-02-19] MEDS: VANCOMYCIN 1GM/200ML PREMIX 200 ML IV ONE (17:00)
[2024-02-19] MEDS: MIDAZOLAM DRIP 50 mg/50mL 50 ML IV SCH (17:32)
[2024-02-19] MEDS: SODIUM CHLORIDE 0.9% 1,000 ML IV ONE (18:05)
[2024-02-19] MEDS: AZITHROMYCIN 500MG/ 250ML 250 ML IV ONE (18:05)
[2024-02-19 18:40] LABS: Lactic Acid w/Reflex 4.4 mmol/L (0.4-2.0)
[2024-02-19] MEDS: SODIUM CHLORIDE 0.9% 2,350 ML IV ONE (18:57)
[2024-02-19] MEDS ORDERED: MORPHINE SULFATE INJ 2 MG/ml SYRG IV PRN (19:00)
[2024-02-19] MEDS ORDERED: NITROGLYCERIN 0.4 MG SL TAB SL PRN (19:00)
[2024-02-19] MEDS ORDERED: NOREPINEPHRINE 8 MG/250ML KIT 250 ML IV SCH (19:00)
[2024-02-19] MEDS ORDERED: DEXTROSE (50%) 50ML SYRG IV PRN (19:00)
[2024-02-19] MEDS ORDERED: ONDANSETRON HCL 4 MG/2 ML VIAL IV PRN (19:00)
--- NOTE | 2024-02-19 19:07 | DVHHP2 ---
History of Present Illness Reason for Visit: Shortness of brath History of Present Illness David Gilmore is a 52-year-old male with past medical history of CHF, chronic kidney disease, obstructive uropathy, diabetes, and noncompliance, who came in with complaints of shortness of breath. Patient was with his mother overnight and having difficulty sleeping and breathing, it worsened this morning so she called EMS. Patient was brought in via EMS on a CPAP, tachypneic, increased work of breathing, and with O2 at of 88%. Patient was intubated shortly after arrival to ER. Shortly after my initial assessment I was notified the BP was decreasing, orders were given. Within 15 minutes of those orders patient's BP continued to decrease and patient went into PEA. A code blue was called and ROSC was achieved. Cardiology and pulmonology was at bedside during the code. Cardiovascular: CHF Renal/: Chronic renal insuff Endocrine: Diabetes Review of Systems Constitutional: No: Fever, Chills, Sweats, Weakness, Malaise, Other Eyes: No: Pain, Vision change, Conjunctivae inflammation, Eyelid inflammation, Other, Redness ENT: No: Ear pain, Ear discharge, Nose pain, Nose discharge, Nose congestion, Mouth pain, Mouth swelling, Throat pain, Throat swelling, Other Respiratory: Shortness of breath, SOB with excertion, Wheezing; No: Cough, Dry, Hemoptysis, Pleuritic Pain, Sputum, Wheezing, Other Cardiovascular: No: Chest Pain, Palpitations, Orthopnea, Paroxysmal Noc. Dyspnea, Edema, Lt Headedness, Other Gastrointestinal: No: Nausea, Vomiting, Abdominal Pain, Diarrhea, Constipation, Melena, Hematochezia, Other Genitourinary: No Dysuria, No Frequency, No Incontinence, No Hematuria, No Retention, No Other Musculoskeletal: No: other, neck pain, shoulder pain, arm pain, back pain, hand pain, leg pain, foot pain Skin: No: Rash, Lesions, Jaundice, Bruising, Other Neurological: No: Weakness, Numbness, Incoordination, Change in speech, Confusion, Seizures, Other Allergies: Coded Allergies: Ampicillin (Verified Allergy, Unknown, NAUSEA AND VOMITING, 02/14/24) Sulbactam (Verified Allergy, Unknown, NAUSEA AND VOMITING, 02/14/24) Medications Current Medications Medications Dose Ordered Sig/Kishan Route Start Time Stop Time Status Last Admin Dose Admin Propofol 100 ml @ 2.7 mls/hr Q24H IV 02/19/24 14:45 02/19/24 14:45 2.7 MLS/HR Midazolam HCl 50 ml @ 1 mls/hr Q24H IV 02/19/24 17:15 02/19/24 17:32 1 MLS/HR Norepinephrine Bitartrate 250 ml @ 3.75 mls/hr Q24H IV 02/19/24 19:00 Exam Vital Signs Vital Signs Date Time Temp Pulse Resp B/P (MAP) Pulse Ox O2 Delivery O2 Flow Rate FiO2 02/19/24 18:02 97/67 02/19/24 17:50 77 22 96 90 02/19/24 14:30 Mechanical Ventilator+ 02/19/24 13:57 97.7 General Appearance: severe distress, Other (sedated and on mechanical ventilation) HEENT: Other (unequal pupils, right 5, left 3, sluggish) Respiratory: Other (diminished breath sounds) Cardiovascular: Regular rate, Normal S1, Normal S2 Abdominal: Normal bowel sounds, Soft Extremities: No clubbing, Normal pulses, Other (bilateral lower extremity edema) Skin: No rashes, No breakdown, No significant lesion Neuro: Other (sedated and on mechanical ventilation) Labs/Xrays Labs Test 02/19/24 18:37 02/19/24 17:40 02/19/24 15:37 02/19/24 14:16 Range/Units Troponin I High Sensitivity 1010 *H </=54 ng/L Beta-Hydroxybutyric Acid 0.116 < 0.4 mmol/L Blood Gas Specimen Type Arterial Blood Gas Sample Site Left brachial Blood Gas Patient Temperature 37.0 Arterial Blood Date Drawn [id number] Arterial Blood pH 7.131 *L 7.350-7.450 Arterial Blood Partial Pressure CO2 48.2 H 35.0-48.0 mmHg Arterial Blood Partial Pressure O2 92.2 83.0-108.0 mmHg Arterial Blood HCO3 15.7 L 21.0-28.0 mmol/L Arterial Blood Oxygen Saturation 93.6 L 94.0-98.0 % Arterial Blood Base Excess -13.2 L -2.0-3.0 mmol/L Arterial Blood Oxyhemoglobin 92.3 L 94.0-98.0 % Arterial Blood Carboxyhemoglobin 0.7 0.5-1.5 % Arterial Blood Methemoglobin 0.7 0.0-1.5 % Test N/a Blood Gas Total Hemoglobin 13.00 L 13.5-17.5 g/dL Blood Gas Set Respiration Rate 10.0 Blood Gas Modality Vent - ac FiO2 % 100.0 Blood Gas Tidal Volume 500.0 Blood Gas PEEP or CPAP 10.0 Blood Gas Critical Value Read Back Yes Blood Gas Notified Whom Dr. sahni Blood Gas Notified Time Blood Gas Notified By Anthony cordon rrt White Blood Count 24.3 H 4.4-10.8 10^3/uL Red Blood Count 3.68 L 4.5-5.90 10^6/uL Hemoglobin 10.8 L 13.5-17.5 g/dL Hematocrit 33.9 #L 41.0-53.0 % Mean Corpuscular Volume 92.0 80.0-100.0 fL Mean Corpuscular Hemoglobin 29.2 28.0-32.0 pg Mean Corpuscular Hemoglobin Concent 31.7 L 32.0-36.0 g/dL Red Cell Distribution Width 15.7 H 11.8-14.3 % Platelet Count 425 # 140-450 10^3/uL Mean Platelet Volume 8.2 6.9-10.8 fL Neutrophils (%) (Auto) 88.1 H 37.0-80.0 % Lymphocytes (%) (Auto) 5.5 L 10.0-50.0 % Monocytes (%) (Auto) 6.3 0.0-12.0 % Eosinophils (%) (Auto) 0.0 0.0-7.0 % Basophils (%) (Auto) 0.1 0.0-2.0 % Neutrophils # (Auto) 21.4 H 1.6-8.6 10 ^3/uL Lymphocytes # (Auto) 1.3 0.4-5.4 10 ^3/uL Monocytes # (Auto) 1.5 H 0-1.3 10 ^3/uL Eosinophils # (Auto) 0 0-0.8 10 ^3/uL Basophils # (Auto) 0 0-0.2 10 ^3/uL Nucleated Red Blood Cells 0.1 % Prothrombin Time 11.6 9.3-11.8 sec Prothrombin Time INR 1.10 0.9-1.15 Activated Partial Thromboplast Time 29.7 24.5-34.5 SEC Sodium Level 131 #L 136-145 mmol/L Potassium Level 4.0 3.5-5.1 mmol/L Chloride Level 104 98-107 mmol/L Carbon Dioxide Level 12 L 20-31 mmol/L Anion Gap 15 5-15 Blood Urea Nitrogen 63 H 9-23 mg/dL Creatinine 4.73 H 0.700-1.30 mg/dL Glomerular Filtration Rate Calc 14 >90 mL/min BUN/Creatinine Ratio 13.3 10.0-20.0 Serum Glucose 509 #*H 74-106 mg/dL Calcium Level 7.3 L 8.7-10.4 mg/dL Magnesium Level 1.7 1.6-2.6 mg/dL Total Bilirubin 0.4 0.2-1.0 mg/dL Aspartate Amino Transferase (AST) < 8 L 13-40 U/L Alanine Aminotransferase (ALT) 29 7-40 U/L Alkaline Phosphatase 190 H 46-116 U/L B-Type Natriuretic Peptide 2390.74 0-100 pg/mL Total Protein 6.9 5.7-8.2 g/dL Albumin 3.5 3.2-4.8 g/dL CHEST RADIOGRAPH FINDINGS: Lines and Tubes: Endotracheal tube terminates about 7.6 cm above the claudio. Right IJ approach central venous catheter terminating over the distal SVC. Enteric tube is noted with the side port above the GE junction. Recommend advancing about 11 cm for more optimal positioning. Lungs: Diffuse interstitial opacities of bilateral lungs with alveolar opacities bilateral mid and lower lung zones. Indistinctness of the right hemidiaphragm. No pneumothorax. Cardiomediastinal contours: Unremarkable Bones: No acute osseous abnormality. IMPRESSION: Enteric tube with side port above the GE junction. Recommend advancing about level more cm for more optimal positioning. Endotracheal tube terminates about 7.6 cm above the claudio. Right IJ approach central venous catheter in satisfactory position. Bilateral multifocal pneumonia. Assessment/Plan Assessment/Plan Assessment: Multifocal pneumonia, Elevated troponin, Acute respiratory failure, Acute on chronic kidney failure, Lactic acidosis, Sepsis, S/P CPR, Diabetes, CHF, Plan: Admit to ICU, Pulmonology consult, Cardiology consult, IV fluid resuscitation, IV antibiotics, Blood cultures, Sputum cultures, Vasopressors as needed, Intubated with mechanical ventilation, CT head, Accu checks AC&HS with sliding scale, Minimal sedation as needed, Plan discussed with: Patient My Orders Orders - ALYSA MSOS Procedure Category Date Status Time Drug Screen LAB 02/19/24 In Process 18:23 Sodium Chloride 0.9% PHA 02/19/24 In Process 19:00 Norepinephrine 8 PHA 02/19/24 In Process Mg/250ml Kit 19:00 Date of Service: Feb 19, 2024 Billing Provider: ALYSA MOSS Common Visit Codes: [id number] INP/OBS CARE (HIGH) ALYSA MOSS Feb 19, 2024 19:07
[2024-02-19 19:12] LABS: Amphetamine Screen, Urine Neg (NEGATIVE); Barbiturate Scree,Urine Neg (NEGATIVE); Benzodiazephine Screen, Urine Neg (NEGATIVE); Cannabinoid Screen, Urine Neg (NEGATIVE); Cocaine Screen, Urine Neg (NEGATIVE); Opiate Scree,Urine Neg (NEGATIVE); Phencyclidine Screen, Urine Neg (NEGATIVE)
[2024-02-19] MEDS: VASOPRESSIN 20 UNITS in SODIUM CHL 0.9% 99 ML IV SCH (19:45)
[2024-02-19] MEDS: PHENYLEPHRINE IV 250 ML IV SCH (19:45)
[2024-02-19] MEDS ORDERED: PHENYLEPHRINE IV 250 ML IV SCH (19:45)
[2024-02-19] MEDS: PHENYLEPHRINE IV 250 ML IV ONE (19:50)
[2024-02-19 19:53] LABS: Base Excess -10.4 mmol/L (-2.0-3.0)
[2024-02-19] MEDS: VASOPRESSIN 20 UNIT/ML ONE (19:54)
--- NOTE | 2024-02-19 19:56 | DVHINCON2 ---
Date of service: Feb 19, 2024 Referring Physician JOSS Augustin Reason for Consultation Ventilator management History of Present Illness 52-year-old man history of CHF, CKD, diabetes mellitus type 2 hypertension who presented with shortness of breath. He was found to be hypoxic. He was emergently intubated and placed on mechanical ventilation. Pulmonary consultation is called due to acute hypoxic respiratory failure and mechanical ventilator management. Review of systems: 14 point review of systems is negative unless otherwise noted above. Past medical history: CHF, CKD, diabetes mellitus type 2, hypertension Past surgical history: Unable to obtain due to patient's critical condition. Medications: Reviewed Allergies: Ampicillin, sulbactam Family history: No family history of premature CAD. No family history of lung disease Social history: Nonsmoker. Social alcohol use. No illicit drug use. Lives at home. Family History: Patient reports no known family medical history. Allergies: Coded Allergies: Ampicillin (Verified Allergy, Unknown, NAUSEA AND VOMITING, 02/14/24) Sulbactam (Verified Allergy, Unknown, NAUSEA AND VOMITING, 02/14/24) Home Meds Active Scripts Sulfamethoxazole W/Trimethopri (Bactrim Ds Tablet) 1 Tab Tb, 1 TAB PO BID for 14 Days, #28 TAB Prov:GLADYS HARPER MD 02/15/24 Metoprolol Succinate (Toprol Xl) 50 Mg Tab, 25 MG PO BID for 30 Days, #30 TAB 1 Refill Prov:GLADYS HARPER MD 02/15/24 Apixaban Base (ELIQUIS) 5 Mg Tab, 5 MG PO BID for 30 Days, #60 TAB 1 Refill Prov:GLADYS HARPER MD 02/15/24 Amiodarone HCl (Amiodarone HCl) 200 Mg Tab, 200 MG PO Q12HR for 30 Days, #60 TAB 1 Refill Prov:GLADYS HARPER MD 02/15/24 Reported Medications Sevelamer Carbonate (Sevelamer Carbonate) 800 Mg Tab, 1 TAB PO TID for 30 Days, #90 02/11/24 Sodium Bicarbonate (Sodium Bicarbonate) 650 Mg Tab, 2 TAB PO QID for 30 Days, #240 02/11/24 Tamsulosin Hcl (Tamsulosin Hcl) 0.4 Mg Cap, 1 CAP PO QAM 02/10/24 Finasteride (Finasteride) 5 Mg Tab, 1 TAB PO DAILY 02/10/24 Carvedilol (Carvedilol) 3.125 Mg Tab, 1 TAB PO BID 02/10/24 Amlodipine Besylate (Amlodipine Besylate) 10 Mg Tab, 1 TAB PO DAILY 02/10/24 Current Medications Current Medications Medications (Trade) Dose Ordered Sig/Kishan Route PRN Reason Start Time Stop Time Status Last Admin Propofol 100 ml @ 2.7 mls/hr Q24H IV 02/19/24 14:45 02/19/24 14:45 Midazolam HCl 50 ml @ 1 mls/hr Q24H IV 02/19/24 17:15 02/19/24 17:32 Norepinephrine Bitartrate 250 ml @ 3.75 mls/hr Q24H IV 02/19/24 19:00 Ondansetron HCl (Zofran) 4 mg Q4HP PRN IV NAUSEA / VOMITING 02/19/24 19:00 UNV Enoxaparin Sodium (Lovenox) 40 mg BID SC 02/19/24 22:00 UNV Nitroglycerin (Ntrostat Sublingual) 0.4 mg Q5MINP PRN SL FOR CHEST PAIN 02/19/24 19:00 UNV Morphine Sulfate 2 mg Q30M PRN IV FOR CHEST PAIN 02/19/24 19:00 UNV Diagnostic Test (Pha) (Accu-Chek Comfort Curve T) 1 strip Q6HR 02/20/24 00:00 UNV Insulin Human Regular (InsuLIN R) Q6HR SC 02/20/24 00:00 UNV Dextrose 50 ml UD PRN IV Blood Sugar LESS THAN 60 02/19/24 19:00 UNV Azithromycin 250 ml @ 125 mls/hr DAILY IV 02/20/24 10:00 UNV Cefepime HCl 50 ml @ 12.5 mls/hr DAILY IV 02/20/24 10:00 UNV Phenylephrine HCl 250 ml @ 30 mls/hr Q8H20M IV 02/19/24 19:45 UNV Vasopressin 20 units/Sodium Chloride 100 ml @ 9 mls/hr Q11H7M IV 02/19/24 19:45 UNV Phenylephrine HCl 250 ml @ 30 mls/hr Q8H20M IV 02/19/24 19:45 UNV Vital Signs Vital Signs Date Time Temp Pulse Resp B/P (MAP) Pulse Ox O2 Delivery O2 Flow Rate FiO2 02/19/24 19:00 95.4 66 15 82/52 (62) 93 95.4 02/19/24 17:50 90 02/19/24 15:00 Mechanical Ventilator+ Physical Exam Gen.: Patient lying in bed in medical ICU. Sedated, intubated on mechanical ventilator. Head: Normocephalic, atraumatic. Eyes: PERRLA. Ears: Normal external anatomy. Throat: Endotracheal tube and orogastric tube in place. Neck: Supple, trachea midline. Chest: Transmitted breath sounds bilaterally. Decreased air entry bilaterally. No wheezing. Bibasilar crackles. Cardio vascular: Positive S1, positive S2. Regular rate and rhythm. Abdomen: Positive bowel sounds in all 4 quadrants. Soft, nontender, nondistended. : Mendez in place. Normal external genitalia. Rectal: Deferred Skin: Warm, dry. Intact. Extremities: 2+ radial pulses bilaterally. No lower extremity edema. Neuro: Sedated. Labs/Diagnostic Data Labs Test 02/19/24 18:37 02/19/24 17:40 02/19/24 15:37 02/19/24 14:16 Range/Units Urine Opiates Screen Neg NEGATIVE Urine Fentanyl Screen Neg NEGATIVE Urine Barbiturates Screen Neg NEGATIVE Urine Phencyclidine Screen Neg NEGATIVE Urine Amphetamines Screen Neg NEGATIVE Urine Benzodiazepines Screen Neg NEGATIVE Urine Cocaine Screen Neg NEGATIVE Urine Cannabinoids Screen Neg NEGATIVE Troponin I High Sensitivity 1010 *H </=54 ng/L Beta-Hydroxybutyric Acid 0.116 < 0.4 mmol/L Blood Gas Specimen Type Arterial Blood Gas Sample Site Left brachial Blood Gas Patient Temperature 37.0 Arterial Blood Date Drawn [id number] Arterial Blood pH 7.131 *L 7.350-7.450 Arterial Blood Partial Pressure CO2 48.2 H 35.0-48.0 mmHg Arterial Blood Partial Pressure O2 92.2 83.0-108.0 mmHg Arterial Blood HCO3 15.7 L 21.0-28.0 mmol/L Arterial Blood Oxygen Saturation 93.6 L 94.0-98.0 % Arterial Blood Base Excess -13.2 L -2.0-3.0 mmol/L Arterial Blood Oxyhemoglobin 92.3 L 94.0-98.0 % Arterial Blood Carboxyhemoglobin 0.7 0.5-1.5 % Arterial Blood Methemoglobin 0.7 0.0-1.5 % Test N/a Blood Gas Total Hemoglobin 13.00 L 13.5-17.5 g/dL Blood Gas Set Respiration Rate 10.0 Blood Gas Modality Vent - ac FiO2 % 100.0 Blood Gas Tidal Volume 500.0 Blood Gas PEEP or CPAP 10.0 Blood Gas Critical Value Read Back Yes Blood Gas Notified Whom Dr. sahni Blood Gas Notified Time Blood Gas Notified By Anthony cordon rrt White Blood Count 24.3 H 4.4-10.8 10^3/uL Red Blood Count 3.68 L 4.5-5.90 10^6/uL Hemoglobin 10.8 L 13.5-17.5 g/dL Hematocrit 33.9 #L 41.0-53.0 % Mean Corpuscular Volume 92.0 80.0-100.0 fL Mean Corpuscular Hemoglobin 29.2 28.0-32.0 pg Mean Corpuscular Hemoglobin Concent 31.7 L 32.0-36.0 g/dL Red Cell Distribution Width 15.7 H 11.8-14.3 % Platelet Count 425 # 140-450 10^3/uL Mean Platelet Volume 8.2 6.9-10.8 fL Neutrophils (%) (Auto) 88.1 H 37.0-80.0 % Lymphocytes (%) (Auto) 5.5 L 10.0-50.0 % Monocytes (%) (Auto) 6.3 0.0-12.0 % Eosinophils (%) (Auto) 0.0 0.0-7.0 % Basophils (%) (Auto) 0.1 0.0-2.0 % Neutrophils # (Auto) 21.4 H 1.6-8.6 10 ^3/uL Lymphocytes # (Auto) 1.3 0.4-5.4 10 ^3/uL Monocytes # (Auto) 1.5 H 0-1.3 10 ^3/uL Eosinophils # (Auto) 0 0-0.8 10 ^3/uL Basophils # (Auto) 0 0-0.2 10 ^3/uL Nucleated Red Blood Cells 0.1 % Prothrombin Time 11.6 9.3-11.8 sec Prothrombin Time INR 1.10 0.9-1.15 Activated Partial Thromboplast Time 29.7 24.5-34.5 SEC Sodium Level 131 #L 136-145 mmol/L Potassium Level 4.0 3.5-5.1 mmol/L Chloride Level 104 98-107 mmol/L Carbon Dioxide Level 12 L 20-31 mmol/L Anion Gap 15 5-15 Blood Urea Nitrogen 63 H 9-23 mg/dL Creatinine 4.73 H 0.700-1.30 mg/dL Glomerular Filtration Rate Calc 14 >90 mL/min BUN/Creatinine Ratio 13.3 10.0-20.0 Serum Glucose 509 #*H 74-106 mg/dL Calcium Level 7.3 L 8.7-10.4 mg/dL Magnesium Level 1.7 1.6-2.6 mg/dL Total Bilirubin 0.4 0.2-1.0 mg/dL Aspartate Amino Transferase (AST) < 8 L 13-40 U/L Alanine Aminotransferase (ALT) 29 7-40 U/L Alkaline Phosphatase 190 H 46-116 U/L B-Type Natriuretic Peptide 2390.74 0-100 pg/mL Total Protein 6.9 5.7-8.2 g/dL Albumin 3.5 3.2-4.8 g/dL Assessment Impression: Acute hypercarbic respiratory failure Acute hypoxic respiratory failure On mechanical ventilator Acute respiratory distress syndrome Multifocal pneumonia Septic shock Metabolic acidosis Lactic acidosis Elevated troponin Hyperglycemia Plan: s/p intubation on mechanical ventilator CXR image and report reviewed. ABG reviewed. Acidemia due to CO2 retention and metabolic acidosis 3 amps of bicarbonate were given. Increase respiratory rates 26 breaths per minute, tidal volume 500, peep of 12, FiO2 at 100. Titrate FIO2 to keep O2 saturation above 92%. VAP bundle Daily ABG and CXR while intubated. Sedate for ventilatory synchrony On pressors for hemodynamic support. Levophed at 30 micrograms/minute Titrate to keep MAP above 65 mmHg/SBP above 90 mmHg. Start stress dose steroids at 100 mg hydrocortisone IV push every 8 hours. Continue antibiotics. F/u cultures. Monitor renal function due to Acute kidney injury. Monitor electrolytes. Supplement as necessary. Nutritional support with Clinimix Accucheks, ISS. GI/DVT prophylaxis. Condition: Critical Prognosis: Poor given multiple comorbidities. Rest of plan per hospitalist and other consultants. A total of 36 minutes of critical care time was spent reviewing the patient record, examining the patient, making a diagnostic and therapeutic plan, discussing this plan with the medical personnel, following up on diagnostic studies and following the patient for clinical stability excluding any and all procedures. At least 50% of this time was spent in direct, [id number] contact. Thank you JOSS Augustin for allowing me to participate in this patient's care. Further recommendations will depend on patient's clinical course. Please do not hesitate to contact me if you have any questions or concerns. This medical document was created using an electronic medical record system with [employer] dictation system. Although this document has been carefully reviewed, there may still be some phonetic and typographical errors. These areas are purely typographical due to imperfections of the software programs, and do not reflect any compromise in the patient's medical care. Plan discussed with: Other (RN, RT, MD and CLINICAL DATA ANALYST) ARGELIA JONES MD Feb 19, 2024 19:56
--- NOTE | 2024-02-19 20:30 | DVH ---
CHEST RADIOGRAPH Indication:ost cardia Technique: Single frontal view of the chest was obtained Comparison: XY CHEST XRAY 1 VIEW on DOS: 02/19/24 FINDINGS: Lines and Tubes: Enteric tube with side port above the GE junction. Recommend advancing 11 cm for mo re optimal positioning. Endotracheal tube terminates about 5.1 cm above the claudio. Right IJ approac h central venous catheter in satisfactory position. Lungs: Unchanged interstitial prominence with bilateral mid and lower lung zone alveolar opacities. No pneumothorax. Cardiomediastinal contours: Unremarkable Bones: No acute osseous abnormality. IMPRESSION: Enteric tube with side port above the GE junction. Recommend advancing 11 cm for more optimal positi oning. Endotracheal tube and right IJ approach central venous catheter in satisfactory position. Unchanged multifocal pneumonia. Underlying pleural effusion can not be excluded.
--- NOTE | 2024-02-19 21:28 | DVH ---
EXAM: US CHEST ULTRASOUND Clinical History: Pleural effusion Comparison: None Technique: Grayscale ultrasound of the chest performed with color Doppler and spectral/pulsed wavefor m as indicated. Findings/Impression: Bilateral pleural effusions.
[2024-02-19 21:37] LABS: Base Excess -13.1 mmol/L (-2.0-3.0)
[2024-02-19] MEDS: SODIUM BICARB 8.4% 50Meq/50ml SYR Vial IV ONE ×2 (21:48→21:50)
[2024-02-19] MEDS ORDERED: ENOXAPARIN SOD 40 MG/0.4 ML SYRINGE SC SCH (22:00)
[2024-02-19 22:03] LABS: Basophils # (auto) 0.1 10 ^3/uL (0-0.2); Eosinophils # (auto) 0 10 ^3/uL (0-0.8); Monocytes # (auto) 1.8 10 ^3/uL (0-1.3)
[2024-02-19 22:04] LABS: Basophils % (auto) 0.3 % (0.0-2.0); Hematocrit 38.2 % (41.0-53.0); Hemoglobin 12.1 g/dL (13.5-17.5); Lymphocytes % (auto) 3.9 % (10.0-50.0); Mean Corpuscular Hemoglobin 29.5 pg (28.0-32.0); Mean Corpuscular Hgb Conc. 31.8 g/dL (32.0-36.0); Mean Corpuscular Volume 92.8 fL (80.0-100.0); Monocytes % (auto) 7.1 % (0.0-12.0); Neutrophils % (auto) 88.7 % (37.0-80.0); Platelet Count (auto) 459 10^3/uL (140-450); Red Blood Cells 4.12 10^6/uL (4.5-5.90); Red Cell Distribution Width 15.7 % (11.8-14.3); White Blood Cell 24.8 10^3/uL (4.4-10.8)
--- NOTE | 2024-02-19 23:00 | DVH ---
CLINICAL HISTORY: S/P CPR, unequal pupils TECHNIQUE: Helical imaging carried out from skull base to vertex without intravenous contrast. This e xam was performed according to our departmental dose optimization program. Up-to-date CT equipment an d radiation dose reduction techniques are utilized as appropriate. CTDIVol: [CTDIvol] mGy DLP: 3336.06 mGy-cm WID: COMPARISON: None FINDINGS: Mild calcified plaque in the intracranial internal carotid and vertebral arteries. There is a focal s mall hypodensity in the anterior inferior right frontal lobe on series 2, image 41. Small hypodensit y in the anterior aspect of the left internal capsule on series 2, image 42. Mild patchy low attenuat ion in the cerebral white matter consistent with nonspecific white matter disease. The ventricles and subarachnoid spaces are normal in size and configuration. There is no midline lorie ft or mass effect. The marcano white matter interfaces are otherwise maintained. The basal cisterns are patent. There is no evidence of acute intracranial hemorrhage or extra-axial fluid collection. The ma stoid air cells and visualized paranasal sinuses are well-aerated. Nasogastric tube in the left nasal cavity. Partially imaged multiple dental caries and periapical lucencies in maxillary teeth. Trace m ucosal thickening of the left maxillary sinus. IMPRESSION: 1. No acute intracranial hemorrhage or mass effect. 2. Mild nonspecific white matter disease which may be related to chronic small-vessel ischemia. 3. Small lower density in the anterior inferior left frontal lobe and in the anterior aspect of the l eft internal capsule which may be age-indeterminate or subacute to chronic infarcts. 4. Partially imaged dental caries and periapical lucencies in maxillary teeth.
[2024-02-19 23:15] LABS: Alanine Aminotransferase 72 U/L (7-40); Albumin 3.4 g/dL (3.2-4.8); Alkaline Phosphatase 194 U/L (46-116); Anion Gap 8 (5-15); Aspartate Aminotransferase 82 U/L (13-40); BUN/Creatinine Ratio 12.8 (10.0-20.0); Bilirubin, Total 0.4 mg/dL (0.2-1.0); Blood Urea Nitrogen 69 mg/dL (9-23); Calcium 7.1 mg/dL (8.7-10.4); Carbon Dioxide 20 mmol/L (20-31); Chloride 102 mmol/L (98-107); Sodium 130 mmol/L (136-145); Total Protein 6.5 g/dL (5.7-8.2)
[2024-02-19] MEDS: NOREPINEPHRINE BITARTRATE 32 MG in SODIUM CHL 0.9% 218 ML IV SCH (23:17)
[2024-02-19] MEDS: PHENYLEPHRINE INJ 80 MG in SODIUM CHL 0.9% 242 ML IV SCH (23:17)
[2024-02-19] MEDS: SODIUM BICARB 50mEq/50ml Vial 150 ML in SOD CHL 0.45% 1,000 ML IV SCH (23:17)
[2024-02-19 23:20] LABS: Potassium 5.8 mmol/L (3.5-5.1)
[2024-02-19 23:21] LABS: Glucose 553 mg/dL (74-106)
[2024-02-19] MEDS: fentaNYL Drip 2500mCg/250mlNS 250 ML IV SCH (23:23)
--- NOTE | 2024-02-19 23:41 | RESUS ---
KIM DARLING ASSESSSMENT History of Events History of Events: Called to ED for kim darling. Pt arrived on previous for difficulty in breathing. Intubated and placed on mechanical ventilator. iKm darling called at 1924-[id number] without pulse per ED staff. Initial Information Date: Feb 19, 2024 Time: 19:24 Location of Arrest: ER Arrest Witnessed: Yes CPR started initial time: 19:24 CPR started by whom: Hospital Staff Type of arrest: Cardiac Pulse Present: No Crash Cart Opened and Supplies: Yes Airway Ventilation Breathing at Onset: Assisted Oxygen Delivery Method: Ambu-Bag Artificial Ventilation: Bag/Mask Comments: Patient intubated prior to cardiac arrest. Circulation Circulation #1: Time: 19:25 Pulse Rate (adult): 0 Blood Pressure Systolic: 0 Blood Pressure Diastolic: 0 Circulation #2: Time: 19:28 Pulse Rate (adult): 0 Circulation #3: Time: 19:31 Circulation #4: Time: 19:33 Pulse Rate (adult): 72 Blood Pressure Systolic: 121 Blood Pressure Diastolic: 93 Defibrillation Defbrillation : Time Defibrillator Applied: 19:26 EKG Rhythm: Sinus Rhythm, Asystole Compressions: None Pulse Present: Yes EKG Rhythm: Asystole Medications & Response Medications and Responses #1: Medication Time: 19:25 ADULT Medications Given ADULT: Epinephrine 1 mg Heart Rate: 0 EKG Rhythm: Asystole Blood Pressure Systolic: 0 Blood Pressure Diastolic: 0 Medications and Responses #2: Medication Time: 19:26 ADULT Medications Given ADULT: Sodium Bacarbinate 50 meq EKG Rhythm: Asystole Medications and Responses #3: Medication Time: 19:27 ADULT Medications Given ADULT: Epinephrine 1 mg EKG Rhythm: Asystole EKG Rhythm: Asystole Medications and Responses #4: Medication Time: 19:32 ADULT Medications Given ADULT: Epinephrine 1 mg Route of Administration: IV EKG Rhythm: Asystole EKG Rhythm: Asystole Medications and Responses #5: ADULT Medications Given ADULT: Sodium Bacarbinate 50 meq Route of Administration: IV EKG Rhythm: Asystole EKG Rhythm: Asystole Time Code Ended Time Code Ended: 19:33 Post Arrest Status: Ventilated Outcome of code: Successful Code Team Present: Dr Tomás Jackson Ed Charge Pura Delvalle RN Harsha THAKKAR RN ROSC Time of ROSC: 19:33 Pt Meets Criteria for Therapeu: No Date of Service: Feb 19, 2024 Billing Provider: RICHARD MCMILLAN MD Common Visit Codes: PROCEDURE ONLY Procedure Codes: [id number] CODE KAVEH GLOVER Feb 19, 2024 23:41 RICHARD MCMILLAN MD Feb 20, 2024 09:16
[2024-02-20] VITALS (108 sets, daily range): BP systolic 103–175; BP diastolic 58–119; PULSE 68–144; RESP 8–29; TEMP 97–99.7; O2SAT 91–100
[2024-02-20] MEDS ORDERED: InsuLIN REG 1unit/0.01ml Soln (100units/ml) SC SCH
[2024-02-20] MEDS ORDERED: ACCU-CHEK COMFORT CURVE STRIP VI SCH
--- NOTE | 2024-02-20 00:10 | DVHNC2 ---
Arterial Puncture Indication: Assess ventilatory status, Assess acid-base status Procedure: Sterile Preparation, Arterial Punct Obtained Location: Right Radial Informed consent obtained: No Risks/benefits/alt described: No UTO Consent emergent Date of Service: Feb 19, 2024 Billing Provider: MAXIMILIANO GANT Common Visit Codes: PROCEDURE ONLY Procedure Codes: [id number] LINE MAXIMILIANO GANT Feb 20, 2024 00:10
[2024-02-20] MEDS ORDERED: DEXTROSE (50%) 50ML SYRG IV PRN ×3 (00:15→15:15)
[2024-02-20] MEDS: CALCIUM GLUC 1,000mg/50ml-NS 50 ML IV ONE (00:38)
[2024-02-20] MEDS: ALBUTEROL SULF 2.5 MG/0.5ML(0.5%) NEB SOLN NEB ONE (00:45)
[2024-02-20] MEDS: InsuLIN REG 1unit/0.01ml Soln (100units/ml) IV ONE (00:48)
[2024-02-20] MEDS: ALBUMIN 25% 100 ML IV ONE (00:49)
[2024-02-20] MEDS: HEPARIN SODIUM (PORCINE) 5000 UNITS/ML 1ML VIAL SC SCH (00:55)
[2024-02-20] MEDS: SODIUM BICARBONATE 650 MG TAB PO SCH (00:59)
[2024-02-20] MEDS: HYDROCORTISONE SOD SUCC 100 MG/2ML INJ VIAL IV SCH (01:04)
[2024-02-20] MEDS: FUROSEMIDE 100 MG/10ML VIAL IV ONE (01:25)
[2024-02-20 01:45] LABS: Base Excess -9.5 mmol/L (-2.0-3.0)
--- NOTE | 2024-02-20 03:10 | DVH ---
CLINICAL HISTORY: SOB / ABD PAIN TECHNIQUE: CT of the chest, abdomen and pelvis was performed without IV contrast. This exam was perf ormed according to our departmental dose optimization program. Up-to-date CT equipment and radiation dose reduction techniques are utilized as appropriate. COMPARISON: CT CT AB PEL WO CON-NO ORAL OR IV on DOS: 02/10/24, FINDINGS: CHEST FINDINGS: Lower Neck: Unremarkable Axilla, Mediastinum and Jenny: No axillary lymphadenopathy. Prominent mediastinal lymph nodes. Limite d evaluation of the jenny in the absence of intravenous contrast. Gastric tube courses in the esophagu s. Heart and Great Vessels: Mild cardiomegaly with small pericardial fluid. Moderate to marked three-ves nimo calcified coronary artery disease and moderate aortic valve calcifications. The thoracic aorta i s normal in caliber containing mild calcified plaque. Right IJ central venous catheter is in place wh ich terminates in the low SVC. Airway, Lungs and Pleura: Trachea and central airways are patent. Endotracheal tube terminates above the claudio. Patchy and confluent consolidative and ground-glass opacities in all 5 lobes more pronou nced in the mid to lower lungs. Small to moderate [id number]-left pleural effusions. No pneum othorax. Interlobular septal thickening in the lungs. Chest Wall and Osseous Structures: Multilevel thoracic spondylosis. No destructive osseous lesion. Abdomen and Pelvis Findings: Liver and Biliary system: Grossly unremarkable unopacified liver. Mild periportal edema. There is kathleen arent mild wall thickening of the gallbladder which is otherwise normal caliber. No biliary ductal di latation. Spleen: Unremarkable. Adrenal Glands and Kidneys: Normal adrenal glands. There is bilateral perinephric soft tissue strandi ng, nonspecific. There is a right posterior approach percutaneous nephrostomy tube in place. There ar e nonobstructing bilateral renal calculi. Diffuse bilateral urothelial thickening. No overt hydroneph rosis. Pancreas and Retroperitoneum: Grossly normal unopacified pancreas. Mild retroperitoneal lymphadenopat hy. Aorta and Major Vessels: Aortoiliac vessels are normal in caliber with mild to moderate calcified ath erosclerotic plaque. Bowel, Mesentery and Peritoneal space: The small and large bowel loops are normal in caliber. There i s moderate retained stool in the colon. Gastric tube terminates in the gastric cardia. There is mild ascites. There is mesenteric venous congestion. No free air or fluid collection. Pelvis: Thickened urinary bladder decompressed about a Mendez catheter. There is presacral fluid and e annmarie. No grossly enlarged pelvic lymph nodes. Dystrophic calcifications in the prostate gland. Abdominal wall and Osseous Structures: There is diffuse body wall edema. Multilevel lumbar spondylosi s. IMPRESSION: 1. CHF/volume overload with mild cardiomegaly, small to moderate bilateral pleural effusions, interst itial pulmonary edema, diffuse body wall edema and mild ascites. 2. Patchy and confluent airspace consolidations in all 5 lobes which could reflect multifocal pneumon ia and/or pulmonary edema. 3. Endotracheal , gastric tubes, and right IJ central venous catheter are in place as described. 4. Right posterior approach percutaneous nephrostomy tube in place. No hydronephrosis in either kidn ey. 5. Bilateral urothelial thickening and diffuse bladder wall thickening. Correlate with urinalysis fo r ascending infection and cystitis, respectively. 6. Nonobstructing bilateral renal calculi. 7. Moderate retained stool in the colon.
[2024-02-20 03:58] LABS: Hematocrit 31.1 % (41.0-53.0); Hemoglobin 10.2 g/dL (13.5-17.5); Mean Corpuscular Hemoglobin 29.8 pg (28.0-32.0); Mean Corpuscular Hgb Conc. 32.8 g/dL (32.0-36.0); Mean Corpuscular Volume 90.8 fL (80.0-100.0); Platelet Count (auto) 418 10^3/uL (140-450); Red Blood Cells 3.42 10^6/uL (4.5-5.90); Red Cell Distribution Width 15.2 % (11.8-14.3); White Blood Cell 25.1 10^3/uL (4.4-10.8)
[2024-02-20] MEDS: ACCU-CHEK COMFORT CURVE STRIP VI SCH ×3 (04:15→16:28)
[2024-02-20] MEDS: InsuLIN REG 1unit/0.01ml Soln (100units/ml) SC SCH ×2 (04:15→16:00)
[2024-02-20 04:18] LABS: Alanine Aminotransferase 59 U/L (7-40); Albumin 3.5 g/dL (3.2-4.8); Alkaline Phosphatase 163 U/L (46-116); Anion Gap 12 (5-15); Aspartate Aminotransferase 46 U/L (13-40); BUN/Creatinine Ratio 13.8 (10.0-20.0); Blood Urea Nitrogen 74 mg/dL (9-23); Calcium 7.2 mg/dL (8.7-10.4); Carbon Dioxide 18 mmol/L (20-31); Chloride 103 mmol/L (98-107); Magnesium 1.8 mg/dL (1.6-2.6); Sodium 133 mmol/L (136-145)
[2024-02-20 04:19] LABS: Bilirubin, Total 0.5 mg/dL (0.2-1.0); Total Protein 6.2 g/dL (5.7-8.2)
[2024-02-20 04:26] LABS: Band Neutrophils % (manual) 0; Basophils % (manual) 0 (0.0-2.0); Blast Cells 0; Eosinophils % (manual) 0 (0-7); Metamyelocytes % 0; Myelocytes % 0; Promyelocytes % 0; Reactive Lymphocytes 0
[2024-02-20 04:27] LABS: Glucose 484 mg/dL (74-106)
--- NOTE | 2024-02-20 04:35 | DVH ---
CHEST RADIOGRAPH Indication:cardiac arrest Technique: Single frontal view of the chest was obtained Comparison: XY CHEST XRAY 1 VIEW on DOS: 02/19/24, XY CHEST XRAY 1 VIEW on DOS: 02/19/24 FINDINGS: Lines and Tubes: The endotracheal tube terminates 7.4 cm above the claudio. The enteric tube courses b elow the left hemidiaphragm and the tip extends outside the field of view. Right central venous lili ter terminates in the superior vena cava. Lungs: Bilateral interstitial and airspace disease similar to prior exam. Pleura: No effusion. No pneumothorax. Cardiomediastinal contours: Stable cardiovascular silhouette. Bones: No acute osseous abnormality. IMPRESSION: 1. Endotracheal tube terminates 7.4 cm above the claudio. Other support tubes as described. 2. No significant change in bilateral interstitial and airspace disease.
[2024-02-20 05:00] LABS: Base Excess -10.2 mmol/L (-2.0-3.0)
[2024-02-20] MEDS: INSULIN DRIP 100 UNIT/100ML 100 ML IV SCH ×2 (05:14→06:48)
[2024-02-20 06:17] LABS: Lymphocytes % (manual) 3 (10.0-50.0); Monocytes % (manual) 3 (0-12); Platelet Estimate Adequate
[2024-02-20] MEDS ORDERED: VANCOMYCIN PER PHARMACY 0 MG IV SCH (08:15)
[2024-02-20] MEDS ORDERED: PANTOPRAZOLE 40 MG/10 ML VIAL INJ IV ONE (08:15)
[2024-02-20] MEDS ORDERED: CALCIUM GLUC 1,000mg/50ml-NS 50 ML IV SCH (08:15)
--- NOTE | 2024-02-20 08:34 | DVHINCON2 ---
Date Seen: Feb 20, 2024 Referring Physician Alysia Augustin NP Reason for Consultation Elevated troponin History of Present Illness David Gilmore is a 52-year-old male presents to ER via EMS due to progressive dyspnea from functional class II to functional class IV which occurred previous 24 hours, per EMR patient was with mother was having difficulty sleeping and dyspnea got worse in the morning prompting his visit to the ER via EMS. Patient was intubated shortly after arrival to ER. Patient was diagnosed with septic shock secondary to multifocal pneumonia, complicated with cardiac arrest (pulseless electrical activity) currently status post ROSC. Cardiology was cons ulted for elevated troponin. Could not obtain review of systems due to patient's clinical status. Past medical history: Diabetes, hypertension, chronic kidney disease secondary to obstructive uropathy status post nephrostomy tube placement, paroxysmal a trial fibrillation (chads Vasc 3/ has bled 2), HFrEF (last echocardiogram done in 02/14/2024 LVEF 30%, grade 2 diastolic dysfunction, RVSP 47 mmHg, severe MR, [id number] TR), noncompliance Surgical history: Nephrostomy tube placement Family history: Noncontributory Social history: Could not obtain Allergies: Ampicillin, sulbactam Home medication: Amiodarone 200 mg p.o. b.i.d., amlodipine 10 mg p.o. daily, apixaban 5 mg p.o. b.i.d., carvedilol 3.125 mg p.o. b.i.d., finasteride 5 mg p.o. daily, sevelamer 800 mg p.o. t.i.d., sodium bicarbonate 650 mg p.o. q.i.d., tamsulosin 0.4 mg p.o. daily Patient seen and examined at bedside. Currently patient with sedation and analgesia due to mechanical assisted ventilation. Could not obtain review of systems. Past Medical History Per HPI Past Surgical History Per HPI Family History: Hypertension G8 MOTHER G8 FATHER Family History Per HPI Social History Per HPI Allergies: Coded Allergies: Ampicillin (Verified Allergy, Unknown, NAUSEA AND VOMITING, 02/14/24) Sulbactam (Verified Allergy, Unknown, NAUSEA AND VOMITING, 02/14/24) Home Meds Active Scripts Sulfamethoxazole W/Trimethopri (Bactrim Ds Tablet) 1 Tab Tb, 1 TAB PO BID for 14 Days, #28 TAB Prov:GLADYS HARPER MD 02/15/24 Metoprolol Succinate (Toprol Xl) 50 Mg Tab, 25 MG PO BID for 30 Days, #30 TAB 1 Refill Prov:GLADYS HARPER MD 02/15/24 Apixaban Base (ELIQUIS) 5 Mg Tab, 5 MG PO BID for 30 Days, #60 TAB 1 Refill Prov:GLADYS HARPER MD 02/15/24 Amiodarone HCl (Amiodarone HCl) 200 Mg Tab, 200 MG PO Q12HR for 30 Days, #60 TAB 1 Refill Prov:GLADYS HARPER MD 02/15/24 Reported Medications Sevelamer Carbonate (Sevelamer Carbonate) 800 Mg Tab, 1 TAB PO TID for 30 Days, #90 02/11/24 Sodium Bicarbonate (Sodium Bicarbonate) 650 Mg Tab, 2 TAB PO QID for 30 Days, #240 02/11/24 Tamsulosin Hcl (Tamsulosin Hcl) 0.4 Mg Cap, 1 CAP PO QAM 02/10/24 Finasteride (Finasteride) 5 Mg Tab, 1 TAB PO DAILY 02/10/24 Carvedilol (Carvedilol) 3.125 Mg Tab, 1 TAB PO BID 02/10/24 Amlodipine Besylate (Amlodipine Besylate) 10 Mg Tab, 1 TAB PO DAILY 02/10/24 Current Medications Current Medications Medications (Trade) Dose Ordered Sig/Kishan Route PRN Reason Start Time Stop Time Status Last Admin Propofol 100 ml @ 2.7 mls/hr Q24H IV 02/19/24 14:45 02/19/24 14:45 Midazolam HCl 50 ml @ 1 mls/hr Q24H IV 02/19/24 17:15 02/20/24 08:21 Norepinephrine Bitartrate 250 ml @ 3.75 mls/hr Q24H IV 02/19/24 19:00 02/19/24 21:14 DC Ondansetron HCl (Zofran) 4 mg Q4HP PRN IV NAUSEA / VOMITING 02/19/24 19:00 Enoxaparin Sodium (Lovenox) 40 mg BID SC 02/19/24 22:00 UNV Nitroglycerin (Ntrostat Sublingual) 0.4 mg Q5MINP PRN SL FOR CHEST PAIN 02/19/24 19:00 Morphine Sulfate 2 mg Q30M PRN IV FOR CHEST PAIN 02/19/24 19:00 Diagnostic Test (Pha) (Accu-Chek Comfort Curve T) 1 strip Q6HR 02/20/24 00:00 02/20/24 00:28 DC Insulin Human Regular (InsuLIN R) Q6HR SC 02/20/24 00:00 02/20/24 00:25 DC Dextrose 50 ml UD PRN IV Blood Sugar LESS THAN 60 02/19/24 19:00 02/20/24 00:23 DC Azithromycin 250 ml @ 125 mls/hr DAILY IV 02/20/24 10:00 Cefepime HCl 50 ml @ 12.5 mls/hr DAILY IV 02/20/24 10:00 UNV Phenylephrine HCl 250 ml @ 30 mls/hr Q8H20M IV 02/19/24 19:45 UNV Vasopressin 20 units/Sodium Chloride 100 ml @ 9 mls/hr Q11H7M IV 02/19/24 19:45 02/19/24 19:45 Phenylephrine HCl 250 ml @ 30 mls/hr Q8H20M IV 02/19/24 19:45 02/19/24 21:14 DC 02/19/24 19:45 Hydrocortisone Sodium Succinate (Solu-CORTEF INJECTION) 100 mg Q8HR IV 02/19/24 22:00 02/20/24 06:17 Tamsulosin HCl (Flomax) 0.4 mg DAILY PO 02/20/24 10:00 Sodium Bicarbonate 1,300 mg QID PO 02/19/24 22:00 02/20/24 06:17 Cefepime HCl 50 ml @ 12.5 mls/hr DAILY IV 02/20/24 10:00 02/19/24 20:27 DC Heparin Sodium (Porcine) 5,000 units Q12HR SC 02/19/24 22:00 02/20/24 00:55 Cefepime HCl 50 ml @ 12.5 mls/hr DAILY IV 02/20/24 10:00 Phenylephrine HCl 80 mg/Sodium Chloride 250 ml @ 7.5 mls/hr Q24H IV 02/19/24 21:15 02/19/24 23:17 Norepinephrine Bitartrate 32 mg/ Sodium Chloride 250 ml @ 0.938 mls/ hr Q24H IV 02/19/24 21:15 02/19/24 23:17 Sodium Bicarbonate 150 ml/Sodium Chloride 1,150 ml @ 90 mls/hr [id number] IV 02/19/24 21:45 02/19/24 23:17 Fentanyl Citrate 250 ml @ 2.5 mls/hr Q24H IV 02/19/24 22:30 02/19/24 23:23 Diagnostic Test (Pha) (Accu-Chek Comfort Curve T) 1 strip IQ4HR 02/20/24 04:00 02/20/24 07:48 DC 02/20/24 04:15 Insulin Human Regular (InsuLIN R) IQ4HR SC 02/20/24 04:00 02/20/24 07:48 DC 02/20/24 04:15 Dextrose 50 ml UD PRN IV Blood Sugar LESS THAN 60 02/20/24 00:15 Cancel Insulin Human (Reg)/Sodium Chloride 100 ml @ 0.5 mls/hr Q24H IV 02/20/24 04:45 02/20/24 06:33 DC 02/20/24 05:14 Diagnostic Test (Pha) (Accu-Chek Comfort Curve T) 1 strip Q90MIN 02/20/24 06:00 02/20/24 07:41 Dextrose 50 ml PRN PRN IV BG LESS Than 70 AND CALL 02/20/24 04:45 Insulin Glargine (Lantus) 15 units DAILY SC 02/21/24 10:00 Insulin Human (Reg)/Sodium Chloride 100 ml @ 0.5 mls/hr Q24H IV 02/20/24 06:30 02/20/24 06:48 Calcium Gluconate/ Sodium Chloride 50 ml @ 100 mls/hr Q30M IV 02/20/24 08:15 02/20/24 09:14 UNV Vancomycin HCl 0 ml @ 0 mls/hr UD IV 02/20/24 08:15 UNV Pantoprazole Sodium (Protonix) 40 mg DAILY IV 02/20/24 10:00 UNV Review of Systems Per HPI Vital Signs Vital Signs Date Time Temp Pulse Resp B/P (MAP) Pulse Ox O2 Delivery O2 Flow Rate FiO2 02/20/24 07:13 79 26 114/74 (87) 100 40 02/20/24 07:00 97.9 208.2 02/20/24 06:00 Mechanical Ventilator+ Physical Exam Patient lying in bed, under sedoanalgesia due to mechanical ventilation General: RASS -3, afebrile, mucosae are moist Cardiovascular: Normal S1 and S2. No murmurs, gallops or rubs Respiratory: Mechanically assisted ventilation, equal bilateral airway entree. Clear lung sounds on auscultation Abdomen: Soft, nontender, no organomegaly, normal bowel sounds MSK/skin: Mobilization of limbs cannot be evaluated. Skin is dry and warm Neurological: Orientation cannot be assessed. No apparent motor no sensitive deficits. Pupils are asymmetric (right pupil is larger than left pupil), nonreactive Labs/Diagnostic Data Labs Test 02/20/24 06:15 02/20/24 04:55 02/20/24 03:15 02/20/24 00:25 Range/Units POC Glucose 421 *H 70-106 mg/dl Blood Gas Specimen Type Arterial Blood Gas Sample Site Arterial line Blood Gas Patient Temperature 37.0 Arterial Blood Date Drawn [id number] Arterial Blood pH 7.281 L 7.350-7.450 Arterial Blood Partial Pressure CO2 33.6 L 35.0-48.0 mmHg Arterial Blood Partial Pressure O2 238.3 H 83.0-108.0 mmHg Arterial Blood HCO3 15.5 L 21.0-28.0 mmol/L Arterial Blood Oxygen Saturation 99.2 H 94.0-98.0 % Arterial Blood Base Excess -10.2 L -2.0-3.0 mmol/L Arterial Blood Oxyhemoglobin 98.7 H 94.0-98.0 % Arterial Blood Carboxyhemoglobin 0.3 L 0.5-1.5 % Arterial Blood Methemoglobin 0.2 0.0-1.5 % Test N/a Blood Gas Total Hemoglobin 11.10 L 13.5-17.5 g/dL Blood Gas Set Respiration Rate 26.0 Blood Gas Modality Vent - ac Blood Gas Spontaneous Rate 28 FiO2 % 80.0 Blood Gas Tidal Volume 500.0 Blood Gas PEEP or CPAP 15.0 White Blood Count 25.1 H 4.4-10.8 10^3/uL Red Blood Count 3.42 L 4.5-5.90 10^6/uL Hemoglobin 10.2 #L 13.5-17.5 g/dL Hematocrit 31.1 #L 41.0-53.0 % Mean Corpuscular Volume 90.8 80.0-100.0 fL Mean Corpuscular Hemoglobin 29.8 28.0-32.0 pg Mean Corpuscular Hemoglobin Concent 32.8 32.0-36.0 g/dL Red Cell Distribution Width 15.2 H 11.8-14.3 % Platelet Count 418 140-450 10^3/uL Mean Platelet Volume 8.1 6.9-10.8 fL Neutrophils (%) (Auto) 37.0-80.0 % Lymphocytes (%) (Auto) 10.0-50.0 % Monocytes (%) (Auto) 0.0-12.0 % Basophils (%) (Auto) 0.0-2.0 % Neutrophils # (Auto) 1.6-8.6 10 ^3/uL Lymphocytes # (Auto) 0.4-5.4 10 ^3/uL Monocytes # (Auto) 0-1.3 10 ^3/uL Differential Total Cells Counted 100.0 100 Neutrophils % (Manual) 94 H 37.0-80.0 Band Neutrophils % (Manual) 0 Lymphocytes % (Manual) 3 L 10.0-50.0 Monocytes % (Manual) 3 0-12 Eosinophils % (Manual) 0 0-7 Basophils % (Manual) 0 0.0-2.0 Metamyelocytes % (manual) 0 Myelocytes % (Manual) 0 Promyelocytes % (Manual) 0 Blast Cells % (Manual) 0 Reactive Lymphocytes 0 Platelet Estimate Adequate Sodium Level 133 L 136-145 mmol/L Potassium Level 5.0 3.5-5.1 mmol/L Chloride Level 103 98-107 mmol/L Carbon Dioxide Level 18 L 20-31 mmol/L Anion Gap 12 5-15 Blood Urea Nitrogen 74 H 9-23 mg/dL Creatinine 5.35 H 0.700-1.30 mg/dL Glomerular Filtration Rate Calc 12 >90 mL/min BUN/Creatinine Ratio 13.8 10.0-20.0 Serum Glucose 484 *H 74-106 mg/dL Calcium Level 7.2 L 8.7-10.4 mg/dL Magnesium Level 1.8 1.6-2.6 mg/dL Total Bilirubin 0.5 0.2-1.0 mg/dL Aspartate Amino Transferase (AST) 46 H 13-40 U/L Alanine Aminotransferase (ALT) 59 H 7-40 U/L Alkaline Phosphatase 163 H 46-116 U/L Total Protein 6.2 5.7-8.2 g/dL Albumin 3.5 3.2-4.8 g/dL Troponin I High Sensitivity 1886 *H </=54 ng/L Test 02/19/24 21:50 02/19/24 21:30 02/19/24 18:37 02/19/24 17:40 Range/Units Eosinophils (%) (Auto) 0.0 0.0-7.0 % Eosinophils # (Auto) 0 0-0.8 10 ^3/uL Basophils # (Auto) 0.1 0-0.2 10 ^3/uL Nucleated Red Blood Cells 0.0 % Blood Gas Critical Value Read Back Yes Blood Gas Notified Whom Osmany loyd Blood Gas Notified Time [id number] Blood Gas Notified By Rt b axel Urine Opiates Screen Neg NEGATIVE Urine Fentanyl Screen Neg NEGATIVE Urine Barbiturates Screen Neg NEGATIVE Urine Phencyclidine Screen Neg NEGATIVE Urine Amphetamines Screen Neg NEGATIVE Urine Benzodiazepines Screen Neg NEGATIVE Urine Cocaine Screen Neg NEGATIVE Urine Cannabinoids Screen Neg NEGATIVE Lactic Acid Level 3.2 *H 0.4-2.0 mmol/L Beta-Hydroxybutyric Acid 0.116 < 0.4 mmol/L Test 02/19/24 14:16 Range/Units Prothrombin Time 11.6 9.3-11.8 sec Prothrombin Time INR 1.10 0.9-1.15 Activated Partial Thromboplast Time 29.7 24.5-34.5 SEC B-Type Natriuretic Peptide 2390.74 0-100 pg/mL Assessment Cardiac arrest (pulseless electrical activity) status post ROSC NSTEMI probable type 2 Acute on chronic systolic congestive heart failure (HFrEF, LVEF 30%) Paroxysmal atrial fibrillation (chads Vasc 3/has bled 2) secondary hypercoagulability state - currently in sinus rhythm Severe MR Acute respiratory failure secondary to multifocal pneumonia ARDS Septic shock Acute kidney injury hemodynamically mediated on CKD Diabetes Plan/Recommendation Elevated troponin likely secondary to septic shock due to multifocal pneumonia and chronic disease. EKG on admission shows sinus tachycardia with no ST elevation. No need for urgent coronary angiography at this time. Optimize loading conditions, patient currently needs high doses of vasopressors (was on multiple vasopressors less than 24 hours ago, currently only on norepinephrine) IV antibiotics per hospitalist Drips Norepinephrine 28 Versed 15 Fentanyl [address] Mcdowell, and nurses: Continue treatment for septic shock secondary to multifocal pneumonia at this point, urgent need for coronary angiography at this time. Ordered echocardiogram for post cardiac arrest. Patient has poor prognosis Plan discussed with: Patient, Spouse, Other (Nurses) Date of Service: Feb 20, 2024 Billing Provider: MARY LOU MCDOWELL MD Cardiology Common Codes: [id number] INP/OBS CARE (High) SHAKIRA STOCKTON RESIDENT Feb 20, 2024 08:33
--- NOTE | 2024-02-20 08:50 | DVHINCON2 ---
Date of service: Feb 20, 2024 Referring Physician Frank loyd Reason for Consultation ? Subacute infarct History of Present Illness Mr. Gilmore is a 40 years old left-handed gentleman with a history of hypertension, diabetes, congestive heart failure, chronic kidney disease, the patient was brought to the [facility] on 02/19/2024 with a chief company of shortness breath, his CT brain scan showed evidence suggestive a stroke, at that time, he was intubated, the history is obtained from his mother The patient was recently discharged from the [facility] for abdominal pain. On 02/19/2024, after a bath, he reported shortness breath, which did not improve after he said down, and mother called 911. After he was brought to the [facility] Emergency room, patient coded with total downtime 9 minutes, he was intubated His CT scan showed evidence suggestive of an evidence suggestive of stroke in the left frontal head region. According to his mother, he was no history of stroke or stroke symptoms Code blue, 02/19/2024 1924, ROSC: 1933 UDS, 02/19/2024: Negative ABG, 02/19/2024: metabolic and respiratory acidosis, 02/20/2024: Metabolic acidosis WBC/HB/PLT/MCV, 02/20/24: 25.1/10.2/418/90.8 BUN/CR, 02/19/2024: 74/5.35 GFR, 02/19/2024: 12 HGB A1c, 02/10/2024: 76 Glucose, 02/20/2024: 469, 468, 475, 437 Lactic acid, 02/19/2024: 4.2, three, two TBI/AST/ALT/AP, 02/20/2024: 0.5/46/59/163 Troponin one high sensitivity, 02/19/2024: 238, 652, 1010, 06/22/2023: 1886 Betadine uric acid, 02/20/2024: 0.116 TG/HDL/LDL/HDL, 01/2024, 125/193/121/52 Chest, 02/19/2024: Bilateral pleural effusions CT head, 02/19/2024: 1. No acute intracranial hemorrhage or mass effect. 2. Mild nonspecific white matter disease which may be related to chronic small-vessel ischemia. 3. Small lower density in the anterior inferior left frontal lobe and in the anterior aspect of the left internal capsule which may be age- indeterminate or subacute to chronic infarcts. 4. Partially imaged dental caries and periapical lucencies in maxillary teeth Past Medical History Hypertension, diabetes, congestive heart failure, chronic kidney failure Past Surgical History Left knee surgery Family History: Hypertension G8 MOTHER G8 FATHER Family History Hypertension, diabetes, cancer Social History He is a not tobacco smoker, no history of drug or alcohol abuse Allergies: Coded Allergies: Ampicillin (Verified Allergy, Unknown, NAUSEA AND VOMITING, 02/14/24) Sulbactam (Verified Allergy, Unknown, NAUSEA AND VOMITING, 02/14/24) Home Meds Active Scripts Sulfamethoxazole W/Trimethopri (Bactrim Ds Tablet) 1 Tab Tb, 1 TAB PO BID for 14 Days, #28 TAB Prov:GLADYS HARPER MD 02/15/24 Metoprolol Succinate (Toprol Xl) 50 Mg Tab, 25 MG PO BID for 30 Days, #30 TAB 1 Refill Prov:GLADYS HARPER MD 02/15/24 Apixaban Base (ELIQUIS) 5 Mg Tab, 5 MG PO BID for 30 Days, #60 TAB 1 Refill Prov:GLADYS HARPER MD 02/15/24 Amiodarone HCl (Amiodarone HCl) 200 Mg Tab, 200 MG PO Q12HR for 30 Days, #60 TAB 1 Refill Prov:GLADYS HARPER MD 02/15/24 Reported Medications Sevelamer Carbonate (Sevelamer Carbonate) 800 Mg Tab, 1 TAB PO TID for 30 Days, #90 02/11/24 Sodium Bicarbonate (Sodium Bicarbonate) 650 Mg Tab, 2 TAB PO QID for 30 Days, #240 02/11/24 Tamsulosin Hcl (Tamsulosin Hcl) 0.4 Mg Cap, 1 CAP PO QAM 02/10/24 Finasteride (Finasteride) 5 Mg Tab, 1 TAB PO DAILY 02/10/24 Carvedilol (Carvedilol) 3.125 Mg Tab, 1 TAB PO BID 02/10/24 Amlodipine Besylate (Amlodipine Besylate) 10 Mg Tab, 1 TAB PO DAILY 02/10/24 Current Medications Current Medications Medications (Trade) Dose Ordered Sig/Kishan Route PRN Reason Start Time Stop Time Status Last Admin Propofol 100 ml @ 2.7 mls/hr Q24H IV 02/19/24 14:45 02/19/24 14:45 Midazolam HCl 50 ml @ 1 mls/hr Q24H IV 02/19/24 17:15 02/20/24 08:21 Norepinephrine Bitartrate 250 ml @ 3.75 mls/hr Q24H IV 02/19/24 19:00 02/19/24 21:14 DC Ondansetron HCl (Zofran) 4 mg Q4HP PRN IV NAUSEA / VOMITING 02/19/24 19:00 Enoxaparin Sodium (Lovenox) 40 mg BID SC 02/19/24 22:00 UNV Nitroglycerin (Ntrostat Sublingual) 0.4 mg Q5MINP PRN SL FOR CHEST PAIN 02/19/24 19:00 Morphine Sulfate 2 mg Q30M PRN IV FOR CHEST PAIN 02/19/24 19:00 Diagnostic Test (Pha) (Accu-Chek Comfort Curve T) 1 strip Q6HR 02/20/24 00:00 02/20/24 00:28 DC Insulin Human Regular (InsuLIN R) Q6HR SC 02/20/24 00:00 02/20/24 00:25 DC Dextrose 50 ml UD PRN IV Blood Sugar LESS THAN 60 02/19/24 19:00 02/20/24 00:23 DC Azithromycin 250 ml @ 125 mls/hr DAILY IV 02/20/24 10:00 Cefepime HCl 50 ml @ 12.5 mls/hr DAILY IV 02/20/24 10:00 UNV Phenylephrine HCl 250 ml @ 30 mls/hr Q8H20M IV 02/19/24 19:45 UNV Vasopressin 20 units/Sodium Chloride 100 ml @ 9 mls/hr Q11H7M IV 02/19/24 19:45 02/19/24 19:45 Phenylephrine HCl 250 ml @ 30 mls/hr Q8H20M IV 02/19/24 19:45 02/19/24 21:14 DC 02/19/24 19:45 Hydrocortisone Sodium Succinate (Solu-CORTEF INJECTION) 100 mg Q8HR IV 02/19/24 22:00 02/20/24 06:17 Tamsulosin HCl (Flomax) 0.4 mg DAILY PO 02/20/24 10:00 Sodium Bicarbonate 1,300 mg QID PO 02/19/24 22:00 02/20/24 06:17 Cefepime HCl 50 ml @ 12.5 mls/hr DAILY IV 02/20/24 10:00 02/19/24 20:27 DC Heparin Sodium (Porcine) 5,000 units Q12HR SC 02/19/24 22:00 02/20/24 00:55 Cefepime HCl 50 ml @ 12.5 mls/hr DAILY IV 02/20/24 10:00 Phenylephrine HCl 80 mg/Sodium Chloride 250 ml @ 7.5 mls/hr Q24H IV 02/19/24 21:15 02/19/24 23:17 Norepinephrine Bitartrate 32 mg/ Sodium Chloride 250 ml @ 0.938 mls/ hr Q24H IV 02/19/24 21:15 02/19/24 23:17 Sodium Bicarbonate 150 ml/Sodium Chloride 1,150 ml @ 90 mls/hr [id number] IV 02/19/24 21:45 02/19/24 23:17 Fentanyl Citrate 250 ml @ 2.5 mls/hr Q24H IV 02/19/24 22:30 02/19/24 23:23 Diagnostic Test (Pha) (Accu-Chek Comfort Curve T) 1 strip IQ4HR 02/20/24 04:00 02/20/24 07:48 DC 02/20/24 04:15 Insulin Human Regular (InsuLIN R) IQ4HR SC 02/20/24 04:00 02/20/24 07:48 DC 02/20/24 04:15 Dextrose 50 ml UD PRN IV Blood Sugar LESS THAN 60 02/20/24 00:15 Cancel Insulin Human (Reg)/Sodium Chloride 100 ml @ 0.5 mls/hr Q24H IV 02/20/24 04:45 02/20/24 06:33 DC 02/20/24 05:14 Diagnostic Test (Pha) (Accu-Chek Comfort Curve T) 1 strip Q90MIN 02/20/24 06:00 02/20/24 07:41 Dextrose 50 ml PRN PRN IV BG LESS Than 70 AND CALL 02/20/24 04:45 Insulin Glargine (Lantus) 15 units DAILY SC 02/21/24 10:00 Insulin Human (Reg)/Sodium Chloride 100 ml @ 0.5 mls/hr Q24H IV 02/20/24 06:30 02/20/24 06:48 Calcium Gluconate/ Sodium Chloride 50 ml @ 100 mls/hr Q30M IV 02/20/24 08:15 02/20/24 09:14 Vancomycin HCl 0 ml @ 0 mls/hr UD IV 02/20/24 08:15 UNV Pantoprazole Sodium (Protonix) 40 mg DAILY IV 02/20/24 10:00 Review of Systems As above, the other systems are negative Vital Signs Vital Signs Date Time Temp Pulse Resp B/P (MAP) Pulse Ox O2 Delivery O2 Flow Rate FiO2 02/20/24 07:13 79 26 114/74 (87) 100 40 02/20/24 07:00 97.9 208.2 02/20/24 06:00 Mechanical Ventilator+ Physical Exam The patient is well-nourished and well-developed with no distress. The patient is intubated HEENT: Normocephalic, neck supple, no carotid bruits Lungs: Clear to auscultation Cardiovascular: Regular rate and region, S1, S2, no murmurs Abdomen: Soft, nontender, normal bowel sounds MENTAL STATUS: Not responsive to the surroundings, CRANIAL NERVES: Pupils are round, Rt: 2-3, Lt: 2mm and slightly reactive. There are corneal reflexes and doll's eyes phenomenon. No signs of facial weakness. There are gagging or coughing reflexes SENSATION: No responses to pain stimuli. MOTOR: Normal tone in the upper and lower extremity. Normal muscle bulk. No fasciculations. No spontaneous movement. REFLEXES: Deep tendon reflexes are symmetrical. No pathological reflexes. CEREBELLAR/COORDINATION: Deferred GAIT/STATION: deferred. Labs/Diagnostic Data Labs Test 02/20/24 06:15 02/20/24 04:55 02/20/24 03:15 02/20/24 00:25 Range/Units POC Glucose 421 *H 70-106 mg/dl Blood Gas Specimen Type Arterial Blood Gas Sample Site Arterial line Blood Gas Patient Temperature 37.0 Arterial Blood Date Drawn [id number] Arterial Blood pH 7.281 L 7.350-7.450 Arterial Blood Partial Pressure CO2 33.6 L 35.0-48.0 mmHg Arterial Blood Partial Pressure O2 238.3 H 83.0-108.0 mmHg Arterial Blood HCO3 15.5 L 21.0-28.0 mmol/L Arterial Blood Oxygen Saturation 99.2 H 94.0-98.0 % Arterial Blood Base Excess -10.2 L -2.0-3.0 mmol/L Arterial Blood Oxyhemoglobin 98.7 H 94.0-98.0 % Arterial Blood Carboxyhemoglobin 0.3 L 0.5-1.5 % Arterial Blood Methemoglobin 0.2 0.0-1.5 % Test N/a Blood Gas Total Hemoglobin 11.10 L 13.5-17.5 g/dL Blood Gas Set Respiration Rate 26.0 Blood Gas Modality Vent - ac Blood Gas Spontaneous Rate 28 FiO2 % 80.0 Blood Gas Tidal Volume 500.0 Blood Gas PEEP or CPAP 15.0 White Blood Count 25.1 H 4.4-10.8 10^3/uL Red Blood Count 3.42 L 4.5-5.90 10^6/uL Hemoglobin 10.2 #L 13.5-17.5 g/dL Hematocrit 31.1 #L 41.0-53.0 % Mean Corpuscular Volume 90.8 80.0-100.0 fL Mean Corpuscular Hemoglobin 29.8 28.0-32.0 pg Mean Corpuscular Hemoglobin Concent 32.8 32.0-36.0 g/dL Red Cell Distribution Width 15.2 H 11.8-14.3 % Platelet Count 418 140-450 10^3/uL Mean Platelet Volume 8.1 6.9-10.8 fL Neutrophils (%) (Auto) 37.0-80.0 % Lymphocytes (%) (Auto) 10.0-50.0 % Monocytes (%) (Auto) 0.0-12.0 % Basophils (%) (Auto) 0.0-2.0 % Neutrophils # (Auto) 1.6-8.6 10 ^3/uL Lymphocytes # (Auto) 0.4-5.4 10 ^3/uL Monocytes # (Auto) 0-1.3 10 ^3/uL Differential Total Cells Counted 100.0 100 Neutrophils % (Manual) 94 H 37.0-80.0 Band Neutrophils % (Manual) 0 Lymphocytes % (Manual) 3 L 10.0-50.0 Monocytes % (Manual) 3 0-12 Eosinophils % (Manual) 0 0-7 Basophils % (Manual) 0 0.0-2.0 Metamyelocytes % (manual) 0 Myelocytes % (Manual) 0 Promyelocytes % (Manual) 0 Blast Cells % (Manual) 0 Reactive Lymphocytes 0 Platelet Estimate Adequate Sodium Level 133 L 136-145 mmol/L Potassium Level 5.0 3.5-5.1 mmol/L Chloride Level 103 98-107 mmol/L Carbon Dioxide Level 18 L 20-31 mmol/L Anion Gap 12 5-15 Blood Urea Nitrogen 74 H 9-23 mg/dL Creatinine 5.35 H 0.700-1.30 mg/dL Glomerular Filtration Rate Calc 12 >90 mL/min BUN/Creatinine Ratio 13.8 10.0-20.0 Serum Glucose 484 *H 74-106 mg/dL Calcium Level 7.2 L 8.7-10.4 mg/dL Magnesium Level 1.8 1.6-2.6 mg/dL Total Bilirubin 0.5 0.2-1.0 mg/dL Aspartate Amino Transferase (AST) 46 H 13-40 U/L Alanine Aminotransferase (ALT) 59 H 7-40 U/L Alkaline Phosphatase 163 H 46-116 U/L Total Protein 6.2 5.7-8.2 g/dL Albumin 3.5 3.2-4.8 g/dL Troponin I High Sensitivity 1886 *H </=54 ng/L Test 02/19/24 21:50 02/19/24 21:30 02/19/24 18:37 02/19/24 17:40 Range/Units Eosinophils (%) (Auto) 0.0 0.0-7.0 % Eosinophils # (Auto) 0 0-0.8 10 ^3/uL Basophils # (Auto) 0.1 0-0.2 10 ^3/uL Nucleated Red Blood Cells 0.0 % Blood Gas Critical Value Read Back Yes Blood Gas Notified Whom Osmany loyd Blood Gas Notified Time [id number] Blood Gas Notified By Rt maria fernanda reyna Urine Opiates Screen Neg NEGATIVE Urine Fentanyl Screen Neg NEGATIVE Urine Barbiturates Screen Neg NEGATIVE Urine Phencyclidine Screen Neg NEGATIVE Urine Amphetamines Screen Neg NEGATIVE Urine Benzodiazepines Screen Neg NEGATIVE Urine Cocaine Screen Neg NEGATIVE Urine Cannabinoids Screen Neg NEGATIVE Lactic Acid Level 3.2 *H 0.4-2.0 mmol/L Beta-Hydroxybutyric Acid 0.116 < 0.4 mmol/L Test 02/19/24 14:16 Range/Units Prothrombin Time 11.6 9.3-11.8 sec Prothrombin Time INR 1.10 0.9-1.15 Activated Partial Thromboplast Time 29.7 24.5-34.5 SEC B-Type Natriuretic Peptide 2390.74 0-100 pg/mL Assessment Abnormal CT brain scan, to rule out stroke Coma Metabolic encephalopathy Hypoxic encephalopathy Toxic encephalopathy Cardiopulmonary arrest Acute respiratory failure Metabolic acidosis Respiratory acidosis Leukocytosis Shock liver Chronic kidney failure Anisocoria, uncertain clinical significance Plan/Recommendation Monitoring Supportive treatment Follow-up lab EEG MRI head or Follow-up CT head ICU care Respiratory support/vent management Stabilize vitals Oxygen More recommendation per clinical course Progress: Guarded This medical document was created using an electronic medical record system with hyaqu dictation system. Although this document has been carefully reviewed, there may still be some phonetic and typographical errors. These areas are purely typographical due to imperfections of the software programs, and do not reflect any compromise in the patient's medical care. Plan discussed with: Other GUSTAVO AVELAR MD Feb 20, 2024 08:50
[2024-02-20] MEDS ORDERED: CEFEPIME 1GM/ 50ML 50 ML IV SCH ×2 (10:00)
[2024-02-20] MEDS: TAMSULOSIN HYDROCHLORIDE 0.4 MG CAP PO SCH (10:00)
[2024-02-20] MEDS ORDERED: CEFEPIME 2GM/50ML NS 50 ML IV SCH (10:00)
--- NOTE | 2024-02-20 10:26 | DVHINCON2 ---
Date of service: Feb 20, 2024 Referring Physician Frank Isbell nurse practitioner Reason for Consultation Acute kidney injury History of Present Illness Patient is 52-year-old male with past medical history significant for diabetes, hypertension, Chronic Kidney Disease, obstructive uropathy status post bilateral nephrostomy tube and congestive heart failure is admitted for shortness of breath and respiratory failure. Per mother at the bedside patient was recently discharged from [facility] where he stayed there for three weeks and they were talking about dialysis he was treated for a kidney infection for mom. Patient intubated on the ventilator and nephrology is consulted for elevated BUN and creatinine Past Medical History PAST MEDICAL HISTORY: CHF, CKF, DM, HTN, obstructive uropathy, urinary tract infection Past Surgical History Bilateral nephrostomy tube Allergies: Coded Allergies: Ampicillin (Verified Allergy, Unknown, NAUSEA AND VOMITING, 02/14/24) Sulbactam (Verified Allergy, Unknown, NAUSEA AND VOMITING, 02/14/24) Home Meds Active Scripts Sulfamethoxazole W/Trimethopri (Bactrim Ds Tablet) 1 Tab Tb, 1 TAB PO BID for 14 Days, #28 TAB Prov:GLADYS HARPER MD 02/15/24 Metoprolol Succinate (Toprol Xl) 50 Mg Tab, 25 MG PO BID for 30 Days, #30 TAB 1 Refill Prov:GLADYS HARPER MD 02/15/24 Apixaban Base (ELIQUIS) 5 Mg Tab, 5 MG PO BID for 30 Days, #60 TAB 1 Refill Prov:GLADYS HARPER MD 02/15/24 Amiodarone HCl (Amiodarone HCl) 200 Mg Tab, 200 MG PO Q12HR for 30 Days, #60 TAB 1 Refill Prov:GLADYS HARPER MD 02/15/24 Reported Medications Sevelamer Carbonate (Sevelamer Carbonate) 800 Mg Tab, 1 TAB PO TID for 30 Days, #90 02/11/24 Sodium Bicarbonate (Sodium Bicarbonate) 650 Mg Tab, 2 TAB PO QID for 30 Days, #240 02/11/24 Tamsulosin Hcl (Tamsulosin Hcl) 0.4 Mg Cap, 1 CAP PO QAM 02/10/24 Finasteride (Finasteride) 5 Mg Tab, 1 TAB PO DAILY 02/10/24 Carvedilol (Carvedilol) 3.125 Mg Tab, 1 TAB PO BID 02/10/24 Amlodipine Besylate (Amlodipine Besylate) 10 Mg Tab, 1 TAB PO DAILY 02/10/24 Current Medications Current Medications Medications (Trade) Dose Ordered Sig/Kishan Route PRN Reason Start Time Stop Time Status Last Admin Propofol 100 ml @ 2.7 mls/hr Q24H IV 02/19/24 14:45 02/19/24 14:45 Midazolam HCl 50 ml @ 1 mls/hr Q24H IV 02/19/24 17:15 02/20/24 11:14 Norepinephrine Bitartrate 250 ml @ 3.75 mls/hr Q24H IV 02/19/24 19:00 02/19/24 21:14 DC Ondansetron HCl (Zofran) 4 mg Q4HP PRN IV NAUSEA / VOMITING 02/19/24 19:00 Enoxaparin Sodium (Lovenox) 40 mg BID SC 02/19/24 22:00 UNV Nitroglycerin (Ntrostat Sublingual) 0.4 mg Q5MINP PRN SL FOR CHEST PAIN 02/19/24 19:00 Morphine Sulfate 2 mg Q30M PRN IV FOR CHEST PAIN 02/19/24 19:00 Diagnostic Test (Pha) (Accu-Chek Comfort Curve T) 1 strip Q6HR 02/20/24 00:00 02/20/24 00:28 DC Insulin Human Regular (InsuLIN R) Q6HR SC 02/20/24 00:00 02/20/24 00:25 DC Dextrose 50 ml UD PRN IV Blood Sugar LESS THAN 60 02/19/24 19:00 02/20/24 00:23 DC Azithromycin 250 ml @ 125 mls/hr DAILY IV 02/20/24 10:00 02/20/24 11:27 Cefepime HCl 50 ml @ 12.5 mls/hr DAILY IV 02/20/24 10:00 UNV Phenylephrine HCl 250 ml @ 30 mls/hr Q8H20M IV 02/19/24 19:45 UNV Vasopressin 20 units/Sodium Chloride 100 ml @ 9 mls/hr Q11H7M IV 02/19/24 19:45 02/19/24 19:45 Phenylephrine HCl 250 ml @ 30 mls/hr Q8H20M IV 02/19/24 19:45 02/19/24 21:14 DC 02/19/24 19:45 Hydrocortisone Sodium Succinate (Solu-CORTEF INJECTION) 100 mg Q8HR IV 02/19/24 22:00 02/20/24 11:30 DC 02/20/24 06:17 Tamsulosin HCl (Flomax) 0.4 mg DAILY PO 02/20/24 10:00 Sodium Bicarbonate 1,300 mg QID PO 02/19/24 22:00 02/20/24 06:17 Cefepime HCl 50 ml @ 12.5 mls/hr DAILY IV 02/20/24 10:00 02/19/24 20:27 DC Heparin Sodium (Porcine) 5,000 units Q12HR SC 02/19/24 22:00 02/20/24 00:55 Cefepime HCl 50 ml @ 12.5 mls/hr DAILY IV 02/20/24 10:00 02/20/24 10:03 DC Phenylephrine HCl 80 mg/Sodium Chloride 250 ml @ 7.5 mls/hr Q24H IV 02/19/24 21:15 02/19/24 23:17 Norepinephrine Bitartrate 32 mg/ Sodium Chloride 250 ml @ 0.938 mls/ hr Q24H IV 02/19/24 21:15 02/20/24 11:34 Sodium Bicarbonate 150 ml/Sodium Chloride 1,150 ml @ 90 mls/hr [id number] IV 02/19/24 21:45 02/20/24 09:03 DC 02/19/24 23:17 Fentanyl Citrate 250 ml @ 2.5 mls/hr Q24H IV 02/19/24 22:30 02/20/24 11:19 Diagnostic Test (Pha) (Accu-Chek Comfort Curve T) 1 strip IQ4HR 02/20/24 04:00 02/20/24 07:48 DC 02/20/24 04:15 Insulin Human Regular (InsuLIN R) IQ4HR SC 02/20/24 04:00 02/20/24 07:48 DC 02/20/24 04:15 Dextrose 50 ml UD PRN IV Blood Sugar LESS THAN 60 02/20/24 00:15 Cancel Insulin Human (Reg)/Sodium Chloride 100 ml @ 0.5 mls/hr Q24H IV 02/20/24 04:45 02/20/24 06:33 DC 02/20/24 05:14 Diagnostic Test (Pha) (Accu-Chek Comfort Curve T) 1 strip Q90MIN 02/20/24 06:00 02/20/24 11:41 Dextrose 50 ml PRN PRN IV BG LESS Than 70 AND CALL 02/20/24 04:45 Insulin Glargine (Lantus) 15 units DAILY SC 02/21/24 10:00 Insulin Human (Reg)/Sodium Chloride 100 ml @ 0.5 mls/hr Q24H IV 02/20/24 06:30 02/20/24 06:48 Calcium Gluconate/ Sodium Chloride 50 ml @ 100 mls/hr Q30M IV 02/20/24 08:15 02/20/24 09:14 Cancel Vancomycin HCl 0 ml @ 0 mls/hr UD IV 02/20/24 08:15 Pantoprazole Sodium (Protonix) 40 mg DAILY IV 02/20/24 10:00 02/20/24 11:27 Meropenem 50 ml @ 17 mls/hr Q12HR IV 02/20/24 10:00 Hydrocortisone Sodium Succinate (Solu-CORTEF INJECTION) 50 mg Q6HR IV 02/20/24 12:00 02/20/24 11:38 DC Fludrocortisone Acetate (Florinef Tablet) 0.1 mg DAILY GT 02/21/24 10:00 Family History: Hypertension G8 MOTHER G8 FATHER Review of Systems Can not be obtained H&P Exam Vital Signs/I&O Vital Sign Date Time Temp Pulse Resp B/P (MAP) Pulse Ox O2 Delivery O2 Flow Rate FiO2 02/20/24 10:41 83 26 120/77 (91) 99 40 02/20/24 08:00 Mechanical Ventilator+ 02/20/24 07:00 97.9 208.2 Intake and Output 02/19/24 02/20/24 19:00 07:00 Intake Total 1250 ml 1684.066 ml Output Total 350 ml Balance 1250 ml 1334.066 ml Intake IV Total 1250 ml 1684.066 ml Output Urine Total 125 ml Gastric Drainage Total 75 ml Other 150 ml Physical Exam Patient intubated on ventilator and sedated Lungs bibasilar crackles Cardiac exam is tachycardic GI soft bowel sounds are present Mendez catheter Right nephrostomy tube with minimum urine output Extremity 1+ edema Neuro patient is sedated Labs/Diagnostic Data Labs/Diagnostic Data Laboratory Tests Test 02/20/24 06:15 02/20/24 05:11 02/20/24 04:55 02/20/24 04:01 Range/Units POC Glucose 421 *H 437 *H 475 *H 70-106 mg/dl Blood Gas Specimen Type Arterial Blood Gas Sample Site Arterial line Blood Gas Patient Temperature 37.0 Arterial Blood Date Drawn [id number] Arterial Blood pH 7.281 L 7.350-7.450 Arterial Blood Partial Pressure CO2 33.6 L 35.0-48.0 mmHg Arterial Blood Partial Pressure O2 238.3 H 83.0-108.0 mmHg Arterial Blood HCO3 15.5 L 21.0-28.0 mmol/L Arterial Blood Oxygen Saturation 99.2 H 94.0-98.0 % Arterial Blood Base Excess -10.2 L -2.0-3.0 mmol/L Arterial Blood Oxyhemoglobin 98.7 H 94.0-98.0 % Arterial Blood Carboxyhemoglobin 0.3 L 0.5-1.5 % Arterial Blood Methemoglobin 0.2 0.0-1.5 % Test N/a Blood Gas Total Hemoglobin 11.10 L 13.5-17.5 g/dL Blood Gas Set Respiration Rate 26.0 Blood Gas Modality Vent - ac Blood Gas Spontaneous Rate 28 FiO2 % 80.0 Blood Gas Tidal Volume 500.0 Blood Gas PEEP or CPAP 15.0 Test 02/20/24 04:00 02/20/24 03:15 02/20/24 01:38 02/20/24 00:41 Range/Units POC Glucose 461 *H 469 *H 70-106 mg/dl White Blood Count 25.1 H 4.4-10.8 10^3/uL Red Blood Count 3.42 L 4.5-5.90 10^6/uL Hemoglobin 10.2 #L 13.5-17.5 g/dL Hematocrit 31.1 #L 41.0-53.0 % Mean Corpuscular Volume 90.8 80.0-100.0 fL Mean Corpuscular Hemoglobin 29.8 28.0-32.0 pg Mean Corpuscular Hemoglobin Concent 32.8 32.0-36.0 g/dL Red Cell Distribution Width 15.2 H 11.8-14.3 % Platelet Count 418 140-450 10^3/uL Mean Platelet Volume 8.1 6.9-10.8 fL Neutrophils (%) (Auto) 37.0-80.0 % Lymphocytes (%) (Auto) 10.0-50.0 % Monocytes (%) (Auto) 0.0-12.0 % Basophils (%) (Auto) 0.0-2.0 % Neutrophils # (Auto) 1.6-8.6 10 ^3/uL Lymphocytes # (Auto) 0.4-5.4 10 ^3/uL Monocytes # (Auto) 0-1.3 10 ^3/uL Differential Total Cells Counted 100.0 100 Neutrophils % (Manual) 94 H 37.0-80.0 Band Neutrophils % (Manual) 0 Lymphocytes % (Manual) 3 L 10.0-50.0 Monocytes % (Manual) 3 0-12 Eosinophils % (Manual) 0 0-7 Basophils % (Manual) 0 0.0-2.0 Metamyelocytes % (manual) 0 Myelocytes % (Manual) 0 Promyelocytes % (Manual) 0 Blast Cells % (Manual) 0 Reactive Lymphocytes 0 Platelet Estimate Adequate Sodium Level 133 L 136-145 mmol/L Potassium Level 5.0 3.5-5.1 mmol/L Chloride Level 103 98-107 mmol/L Carbon Dioxide Level 18 L 20-31 mmol/L Anion Gap 12 5-15 Blood Urea Nitrogen 74 H 9-23 mg/dL Creatinine 5.35 H 0.700-1.30 mg/dL Glomerular Filtration Rate Calc 12 >90 mL/min BUN/Creatinine Ratio 13.8 10.0-20.0 Serum Glucose 484 *H 74-106 mg/dL Calcium Level 7.2 L 8.7-10.4 mg/dL Magnesium Level 1.8 1.6-2.6 mg/dL Total Bilirubin 0.5 0.2-1.0 mg/dL Aspartate Amino Transferase (AST) 46 H 13-40 U/L Alanine Aminotransferase (ALT) 59 H 7-40 U/L Alkaline Phosphatase 163 H 46-116 U/L Total Protein 6.2 5.7-8.2 g/dL Albumin 3.5 3.2-4.8 g/dL Random Vancomycin Level 13.4 H 5-10 ug/mL Blood Gas Specimen Type Arterial Blood Gas Sample Site Arterial line Blood Gas Patient Temperature 37.0 Arterial Blood Date Drawn [id number] Arterial Blood pH 7.292 L 7.350-7.450 Arterial Blood Partial Pressure CO2 34.0 L 35.0-48.0 mmHg Arterial Blood Partial Pressure O2 266.2 H 83.0-108.0 mmHg Arterial Blood HCO3 16.1 L 21.0-28.0 mmol/L Arterial Blood Oxygen Saturation 99.3 H 94.0-98.0 % Arterial Blood Base Excess -9.5 L -2.0-3.0 mmol/L Arterial Blood Oxyhemoglobin 98.9 H 94.0-98.0 % Arterial Blood Carboxyhemoglobin 0.2 L 0.5-1.5 % Arterial Blood Methemoglobin 0.2 0.0-1.5 % Test N/a Blood Gas Total Hemoglobin 11.40 L 13.5-17.5 g/dL Blood Gas Set Respiration Rate 26.0 Blood Gas Modality Vent - ac Blood Gas Spontaneous Rate 28 FiO2 % 100.0 Blood Gas Tidal Volume 500.0 Blood Gas PEEP or CPAP 15.0 Test 02/20/24 00:25 02/19/24 22:30 02/19/24 21:50 02/19/24 21:30 Range/Units Troponin I High Sensitivity 1886 *H </=54 ng/L Sodium Level 130 L 136-145 mmol/L Potassium Level 5.8 *H 3.5-5.1 mmol/L Chloride Level 102 98-107 mmol/L Carbon Dioxide Level 20 20-31 mmol/L Anion Gap 8 5-15 Blood Urea Nitrogen 69 H 9-23 mg/dL Creatinine 5.38 H 0.700-1.30 mg/dL Glomerular Filtration Rate Calc 12 >90 mL/min BUN/Creatinine Ratio 12.8 10.0-20.0 Serum Glucose 553 *H 74-106 mg/dL Calcium Level 7.1 L 8.7-10.4 mg/dL Total Bilirubin 0.4 0.2-1.0 mg/dL Aspartate Amino Transferase (AST) 82 H 13-40 U/L Alanine Aminotransferase (ALT) 72 H 7-40 U/L Alkaline Phosphatase 194 H 46-116 U/L Total Protein 6.5 5.7-8.2 g/dL Albumin 3.4 3.2-4.8 g/dL White Blood Count 24.8 H 4.4-10.8 10^3/uL Red Blood Count 4.12 L 4.5-5.90 10^6/uL Hemoglobin 12.1 L 13.5-17.5 g/dL Hematocrit 38.2 #L 41.0-53.0 % Mean Corpuscular Volume 92.8 80.0-100.0 fL Mean Corpuscular Hemoglobin 29.5 28.0-32.0 pg Mean Corpuscular Hemoglobin Concent 31.8 L 32.0-36.0 g/dL Red Cell Distribution Width 15.7 H 11.8-14.3 % Platelet Count 459 H 140-450 10^3/uL Mean Platelet Volume 8.1 6.9-10.8 fL Neutrophils (%) (Auto) 88.7 H 37.0-80.0 % Lymphocytes (%) (Auto) 3.9 L 10.0-50.0 % Monocytes (%) (Auto) 7.1 0.0-12.0 % Eosinophils (%) (Auto) 0.0 0.0-7.0 % Basophils (%) (Auto) 0.3 0.0-2.0 % Neutrophils # (Auto) 22.0 H 1.6-8.6 10 ^3/uL Lymphocytes # (Auto) 1.0 0.4-5.4 10 ^3/uL Monocytes # (Auto) 1.8 H 0-1.3 10 ^3/uL Eosinophils # (Auto) 0 0-0.8 10 ^3/uL Basophils # (Auto) 0.1 0-0.2 10 ^3/uL Nucleated Red Blood Cells 0.0 % Blood Gas Specimen Type Arterial Blood Gas Sample Site Right radial Blood Gas Patient Temperature 37.0 Arterial Blood Date Drawn [id number] Arterial Blood pH 7.163 *L 7.350-7.450 Arterial Blood Partial Pressure CO2 42.6 35.0-48.0 mmHg Arterial Blood Partial Pressure O2 74.0 L 83.0-108.0 mmHg Arterial Blood HCO3 14.9 L 21.0-28.0 mmol/L Arterial Blood Oxygen Saturation 90.7 L 94.0-98.0 % Arterial Blood Base Excess -13.1 L -2.0-3.0 mmol/L Arterial Blood Oxyhemoglobin 90.4 L 94.0-98.0 % Arterial Blood Carboxyhemoglobin 0.1 L 0.5-1.5 % Arterial Blood Methemoglobin 0.2 0.0-1.5 % Test Modified Blood Gas Total Hemoglobin 11.80 L 13.5-17.5 g/dL Blood Gas Set Respiration Rate 26.0 Blood Gas Modality Vent - ac FiO2 % 100.0 Blood Gas Tidal Volume 500.0 Blood Gas PEEP or CPAP 15.0 Blood Gas Critical Value Read Back Yes Blood Gas Notified Whom Osmany isbell Blood Gas Notified Time [id number] Blood Gas Notified By Rt b axel Test 02/19/24 19:38 02/19/24 18:37 02/19/24 17:40 02/19/24 15:42 Range/Units Blood Gas Specimen Type Arterial Blood Gas Sample Site Left radial Blood Gas Patient Temperature 37.0 Arterial Blood Date Drawn [id number] Arterial Blood pH 7.138 *L 7.350-7.450 Arterial Blood Partial Pressure CO2 56.3 H 35.0-48.0 mmHg Arterial Blood Partial Pressure O2 139.0 H 83.0-108.0 mmHg Arterial Blood HCO3 18.6 L 21.0-28.0 mmol/L Arterial Blood Oxygen Saturation 97.6 94.0-98.0 % Arterial Blood Base Excess -10.4 L -2.0-3.0 mmol/L Arterial Blood Oxyhemoglobin 96.7 94.0-98.0 % Arterial Blood Carboxyhemoglobin 0.2 L 0.5-1.5 % Arterial Blood Methemoglobin 0.7 0.0-1.5 % Test Modified Blood Gas Total Hemoglobin 11.20 L 13.5-17.5 g/dL Blood Gas Set Respiration Rate 26.0 Blood Gas Modality Vent - ac FiO2 % 100.0 Blood Gas Tidal Volume 500.0 Blood Gas PEEP or CPAP 12.0 Blood Gas Critical Value Read Back Yes Blood Gas Notified Whom Dr. karla castaneda Blood Gas Notified Time [id number] Blood Gas Notified By Rt maria fernanda reyna Urine Opiates Screen Neg NEGATIVE Urine Fentanyl Screen Neg NEGATIVE Urine Barbiturates Screen Neg NEGATIVE Urine Phencyclidine Screen Neg NEGATIVE Urine Amphetamines Screen Neg NEGATIVE Urine Benzodiazepines Screen Neg NEGATIVE Urine Cocaine Screen Neg NEGATIVE Urine Cannabinoids Screen Neg NEGATIVE Lactic Acid Level 3.2 *H 0.4-2.0 mmol/L Troponin I High Sensitivity 1010 *H 652 *H </=54 ng/L Beta-Hydroxybutyric Acid 0.116 < 0.4 mmol/L Test 02/19/24 15:37 02/19/24 14:16 Range/Units Blood Gas Specimen Type Arterial Blood Gas Sample Site Left brachial Blood Gas Patient Temperature 37.0 Arterial Blood Date Drawn [id number] Arterial Blood pH 7.131 *L 7.350-7.450 Arterial Blood Partial Pressure CO2 48.2 H 35.0-48.0 mmHg Arterial Blood Partial Pressure O2 92.2 83.0-108.0 mmHg Arterial Blood HCO3 15.7 L 21.0-28.0 mmol/L Arterial Blood Oxygen Saturation 93.6 L 94.0-98.0 % Arterial Blood Base Excess -13.2 L -2.0-3.0 mmol/L Arterial Blood Oxyhemoglobin 92.3 L 94.0-98.0 % Arterial Blood Carboxyhemoglobin 0.7 0.5-1.5 % Arterial Blood Methemoglobin 0.7 0.0-1.5 % Test N/a Blood Gas Total Hemoglobin 13.00 L 13.5-17.5 g/dL Blood Gas Set Respiration Rate 10.0 Blood Gas Modality Vent - ac FiO2 % 100.0 Blood Gas Tidal Volume 500.0 Blood Gas PEEP or CPAP 10.0 Blood Gas Critical Value Read Back Yes Blood Gas Notified Whom Dr. sahni Blood Gas Notified Time [id number] Blood Gas Notified By Anthony cordon rrt White Blood Count 24.3 H 4.4-10.8 10^3/uL Red Blood Count 3.68 L 4.5-5.90 10^6/uL Hemoglobin 10.8 L 13.5-17.5 g/dL Hematocrit 33.9 #L 41.0-53.0 % Mean Corpuscular Volume 92.0 80.0-100.0 fL Mean Corpuscular Hemoglobin 29.2 28.0-32.0 pg Mean Corpuscular Hemoglobin Concent 31.7 L 32.0-36.0 g/dL Red Cell Distribution Width 15.7 H 11.8-14.3 % Platelet Count 425 # 140-450 10^3/uL Mean Platelet Volume 8.2 6.9-10.8 fL Neutrophils (%) (Auto) 88.1 H 37.0-80.0 % Lymphocytes (%) (Auto) 5.5 L 10.0-50.0 % Monocytes (%) (Auto) 6.3 0.0-12.0 % Eosinophils (%) (Auto) 0.0 0.0-7.0 % Basophils (%) (Auto) 0.1 0.0-2.0 % Neutrophils # (Auto) 21.4 H 1.6-8.6 10 ^3/uL Lymphocytes # (Auto) 1.3 0.4-5.4 10 ^3/uL Monocytes # (Auto) 1.5 H 0-1.3 10 ^3/uL Eosinophils # (Auto) 0 0-0.8 10 ^3/uL Basophils # (Auto) 0 0-0.2 10 ^3/uL Nucleated Red Blood Cells 0.1 % Prothrombin Time 11.6 9.3-11.8 sec Prothrombin Time INR 1.10 0.9-1.15 Activated Partial Thromboplast Time 29.7 24.5-34.5 SEC Sodium Level 131 #L 136-145 mmol/L Potassium Level 4.0 3.5-5.1 mmol/L Chloride Level 104 98-107 mmol/L Carbon Dioxide Level 12 L 20-31 mmol/L Anion Gap 15 5-15 Blood Urea Nitrogen 63 H 9-23 mg/dL Creatinine 4.73 H 0.700-1.30 mg/dL Glomerular Filtration Rate Calc 14 >90 mL/min BUN/Creatinine Ratio 13.3 10.0-20.0 Serum Glucose 509 #*H 74-106 mg/dL Lactic Acid Level 4.4 *H 0.4-2.0 mmol/L Calcium Level 7.3 L 8.7-10.4 mg/dL Magnesium Level 1.7 1.6-2.6 mg/dL Total Bilirubin 0.4 0.2-1.0 mg/dL Aspartate Amino Transferase (AST) < 8 L 13-40 U/L Alanine Aminotransferase (ALT) 29 7-40 U/L Alkaline Phosphatase 190 H 46-116 U/L Troponin I High Sensitivity 238 *H </=54 ng/L B-Type Natriuretic Peptide 2390.74 0-100 pg/mL Total Protein 6.9 5.7-8.2 g/dL Albumin 3.5 3.2-4.8 g/dL Assessment Acute kidney injury superimposed Chronic Kidney Disease secondary hemodynamic mediated Acute respiratory failure, intubated on ventilator Septic shock Obstructive uropathy Bilateral nephrolithiasis Right nephrostomy tube Congestive heart failure exacerbation Bilateral pneumonia Diabetes mellitus type 2 Hyperglycemia Anemia of chronic kidney disease Recommendations I discussed risks and benefits of hemodialysis with the mother at the bedside and she agreed Consents for stat hemodialysis and Sravan catheter for hemodialysis Hemodialysis after catheter placement IV pressors maintain map more than 65 mm Hg Otto cultures IV antibiotics Insulin sliding scale Avoid nephrotoxic medications Check kidney ultrasound Urology consult We will continue to follow Patient seen and examined by myself ICU bed six. Critical care time 35 minutes. I discussed my plan of care with the primary nurse and the mother at the bedside I would like to thank Frank for the consult, will follow up Plan discussed with: Other (Nurse, mother) NICOLA CANALES MD Feb 20, 2024 10:25
[2024-02-20] MEDS: PANTOPRAZOLE 40 MG/10 ML VIAL INJ IV SCH (11:27)
[2024-02-20] MEDS: AZITHROMYCIN 500MG/ 250ML 250 ML IV SCH (11:27)
[2024-02-20] MEDS: FLUDROCORTISONE ACETATE 0.1 MG TAB GT ONE (11:30)
[2024-02-20] MEDS ORDERED: HYDROCORTISONE SOD SUCC 100 MG/2ML INJ VIAL IV SCH (12:00)
--- NOTE | 2024-02-20 12:24 | ECG ---
[facility] Test Date: 2024-02-19 Test Time: 14:10:15 Pat Name: YAKOV SIMS Department: ER Room: [address] [place] [address] A Gender: M [employer] Inspector: ARYA : 1971-03-15 Requested By: MERCEDES CALDERON Order Number: [id number] Reading MD: Ash Jones Measurements Intervals [place] Rate: 88 P: 48 NV: 158 QRS: 20 QRSD: 101 T: 54 QT: 416 QTc: 504 Interpretive Statements Sinus rhythm Ventricular premature complex Left atrial enlargement Prolonged QT interval Baseline wander in lead(s) V5,V6 Electronically Signed On 02-21-2024 13:11:14 PDT by Ash Jones Please click the below link to view image of tracing.
[2024-02-20] MEDS: MEROPENEM 500MG IVPB 50 ML IV SCH (12:35)
--- NOTE | 2024-02-20 13:20 | DVH ---
CHEST RADIOGRAPH Indication:confirm placement lorena catheter Technique: Single frontal view of the chest was obtained COMPARISON: XY CHEST XRAY 1 VIEW on DOS: 02/20/24, XY CHEST XRAY 1 VIEW on DOS: 02/19/24, XY CHEST XR AY 1 VIEW on DOS: 02/19/24 FINDINGS: Lines and Tubes: - Endotracheal tube in satisfactory position. - Enteric catheter in satisfactory position. - Left central venous catheter in satisfactory position. - Right central venous catheter in satisfactory position. Lungs: - Multifocal airspace disease, unchanged. Pleura: - No effusion. - No pneumothorax. Cardiomediastinal contours: - Unremarkable. Bones: - Unremarkable. IMPRESSION: Lines and tubes in satisfactory position. No significant interval change.
[2024-02-20 14:44] LABS: Alanine Aminotransferase 52 U/L (7-40); Albumin 3.4 g/dL (3.2-4.8); Alkaline Phosphatase 143 U/L (46-116); Anion Gap 12 (5-15); Aspartate Aminotransferase 20 U/L (13-40); BUN/Creatinine Ratio 14.6 (10.0-20.0); Calcium 7.3 mg/dL (8.7-10.4); Carbon Dioxide 22 mmol/L (20-31); Chloride 104 mmol/L (98-107); Potassium 4.9 mmol/L (3.5-5.1); Sodium 138 mmol/L (136-145)
[2024-02-20 14:45] LABS: Bilirubin, Total 0.4 mg/dL (0.2-1.0); Total Protein 6.1 g/dL (5.7-8.2)
[2024-02-20 14:49] LABS: Glucose 147 mg/dL (74-106)
[2024-02-20 14:53] LABS: Magnesium 1.7 mg/dL (1.6-2.6)
[2024-02-20 14:54] LABS: Blood Urea Nitrogen 80 mg/dL (9-23)
[2024-02-20 14:55] LABS: Phosphorus 5.9 mg/dL (2.4-5.1)
--- NOTE | 2024-02-20 15:18 | DVH ---
RENAL ULTRASOUND CLINICAL HISTORY: sabiha TECHNIQUE: Multiple ultrasound images of the kidneys and bladder were obtained. COMPARISON: CT abdomen 02/19/2024 FINDINGS: The left kidney is partially obscured by bowel gas. The visualized left kidney measures 6.7 cm in yanni gth. The right kidney measures 9.7 cm in length. There is a nonspecific 3.0 x 1.6 cm perinephric flui d collection along the superior pole of the right kidney. The visualized kidneys grossly demonstrate appropriate echotexture without evidence of a discrete renal lesion, nephrolithiasis or hydronephrosi s. Bladder is collapsed Mendez catheter. IMPRESSION: 1. Nonspecific 3.0 x 1.6 cm perinephric fluid collection along the superior pole of the right kidney. 2. The visualized kidneys demonstrate no sonographic evidence of nephrolithiasis or hydronephrosis. HS:Y
[2024-02-20] MEDS ORDERED: EPINEPHrine HCL 1 MG/10 ML SYRG IV ONE (15:24)
[2024-02-20] MEDS: SODIUM CHL 0.9% 1000 ML BAG XX ONE (15:36)
[2024-02-20] MEDS: VANCOMYCIN 1GM/200ML PREMIX 200 ML IV ONE (17:46)
[2024-02-20] MEDS ORDERED: DEXTROSE (50%) 50ML SYRG IV ONE (18:26)
[2024-02-20 18:39] LABS: Protein, Urine 63.9 mg/dL (1-14)
[2024-02-20 18:40] LABS: Creatinine, Urine 33.02 mg/dL (30.0-125.0); Urine Protein/Creatinine Ratio 1.94
[2024-02-20 18:41] LABS: Urine Bacteria FEW /hpf (None Seen); Urine Blood 2+ /uL (Negative); Urine Clarity Clear (Clear); Urine Color Colorless (Yellow); Urine Protein, UAD 1+ (Negative); Urine Specific Gravity 1.007 (1.001-1.035); Urine Urobilinogen Normal (Negative); Urine WBC 7 /hpf (0 - 3); Urine pH 5.5 (5.0-9.0)
[2024-02-20 18:42] LABS: Creatinine, Urine 29.85 mg/dL (30.0-125.0)
--- NOTE | 2024-02-20 19:52 | DVHPNRES ---
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 Patient was brought to the hospital via EMS for worsening shortness of breath for past few days as per mother. As per mother patient was complaining having difficulty breathing which was progressively worsening that prompted her to call EMS.. Initially patient was on CPAP on arrival to EMS however patient was intubated in emergency department. After intubation patient blood pressure progressively worsening and patient had cardiac arrest with pea . Code blue was called, down time was 11 minutes and ROSC was achieved after 11 minutes of code blue. PSH: None as per mother. Home meds: Metoprolol succinate 50 mg daily, Eliquis 5 mg p.o. b.i.d., sevelamer carbonate 800 mg p.o. t.i.d., sodium bicarbonate 650 mg p.o. q.i.d., tamsulosin 0.4 mg p.o. q.a.m.,Amlodipine 10 mg p.o. daily. Social history: NAD Family history: NAD Ventilatory settings: Respiratory rate 26, tidal volume 500, FiO2 40%, peep 15 Urine Input/output: Start measuring urine output Bowel movement: Unknown time ABG: PH 7.28, CO2 33.6, O2 238, HC03 15.5. Chest x-ray: Satisfactory location of Sravan cath, no pneumothorax, right lung multifocal obesity, pulmonary vascular congestion. Overnight event: None Micro: Ordered panculture ROS: Review of systems not obtained as patient is intubated. Patient seen and examined in ICU. At the time of evaluation patient was requiring multiple vasopressors, on mechanical ventilation,. Patient underwent hemodialysis today remote 2.7 L. Progressively patient's vasopressor requirement is going down, continued on IV fluid. Objective vital signs Vital Sign Date Time Temp Pulse Resp B/P (MAP) Pulse Ox O2 Delivery O2 Flow Rate FiO2 02/20/24 18:30 98.1 87 26 154/66 (95) 100 208.6 02/20/24 18:20 40 02/20/24 18:00 Mechanical Ventilator+ Total Intake and Output 02/19/24 02/19/24 02/20/24 15:00 23:00 07:00 Intake Total 1713.25 ml 1220.816 ml Output Total 350 ml Balance 1713.25 ml 870.816 ml medications Current Medications Medications Dose Ordered Sig/Kishan Route Start Time Stop Time Status Last Admin Dose Admin Propofol 100 ml @ 2.7 mls/hr Q24H IV 02/19/24 14:45 02/19/24 14:45 2.7 MLS/HR Midazolam HCl 50 ml @ 1 mls/hr Q24H IV 02/19/24 17:15 02/20/24 17:58 15 MLS/HR Ondansetron HCl 4 mg Q4HP PRN IV 02/19/24 19:00 Enoxaparin Sodium 40 mg BID SC 02/19/24 22:00 UNV Nitroglycerin 0.4 mg Q5MINP PRN SL 02/19/24 19:00 Morphine Sulfate 2 mg Q30M PRN IV 02/19/24 19:00 Cefepime HCl 50 ml @ 12.5 mls/hr DAILY IV 02/20/24 10:00 UNV Phenylephrine HCl 250 ml @ 30 mls/hr Q8H20M IV 02/19/24 19:45 UNV Vasopressin 20 units/Sodium Chloride 100 ml @ 9 mls/hr Q11H7M IV 02/19/24 19:45 02/19/24 19:45 9 MLS/HR Tamsulosin HCl 0.4 mg DAILY PO 02/20/24 10:00 Sodium Bicarbonate 1,300 mg QID PO 02/19/24 22:00 02/20/24 18:49 1,300 MG Heparin Sodium (Porcine) 5,000 units Q12HR SC 02/19/24 22:00 02/20/24 12:35 5,000 UNITS Phenylephrine HCl 80 mg/Sodium Chloride 250 ml @ 7.5 mls/hr Q24H IV 02/19/24 21:15 02/19/24 23:17 16.875 MLS/HR Norepinephrine Bitartrate 32 mg/ Sodium Chloride 250 ml @ 0.938 mls/ hr Q24H IV 02/19/24 21:15 02/20/24 11:34 13.125 MLS/HR Fentanyl Citrate 250 ml @ 2.5 mls/hr Q24H IV 02/19/24 22:30 02/20/24 18:48 22.5 MLS/HR Dextrose 50 ml UD PRN IV 02/20/24 00:15 Cancel Calcium Gluconate/ Sodium Chloride 50 ml @ 100 mls/hr Q30M IV 02/20/24 08:15 02/20/24 09:14 Cancel Vancomycin HCl 0 ml @ 0 mls/hr UD IV 02/20/24 08:15 Pantoprazole Sodium 40 mg DAILY IV 02/20/24 10:00 02/20/24 11:27 40 MG Meropenem 50 ml @ 17 mls/hr Q12HR IV 02/20/24 10:00 02/20/24 12:35 17 MLS/HR Fludrocortisone Acetate 0.1 mg DAILY GT 02/21/24 10:00 Diagnostic Test (Pha) 1 strip IQ4HR 02/20/24 16:00 02/20/24 16:28 1 STRIP Insulin Human Regular IQ4HR SC 02/20/24 16:00 Dextrose 50 ml UD PRN IV 02/20/24 15:15 Enteral Nutritional Formula 1,000 ml 40ML/HR NG 02/20/24 15:15 Examination General Appearance: Sedated on mechanical ventilation. Head Exam: Normal inspection Neck Exam: Normal inspection. Non-tender. Normal alignment Pulmonary/Respiratory: Chest non-tender. Bilateral lungs crackles. Cardiovascular/Chest: Regular rate and rhythm. No murmurs. No JVD. Peripheral Pulses: 2+ Radial (R). 2+ Radial (L). 2+ Pedal (R). 2+ Pedal (L) Abdominal Exam: Normal bowel sounds. Soft. Nontender. No hepatospenomegaly. No masses Ankle Exam: Negative ankle edema Lower extremities: Negative lower extremity edema Neuro/Mental Status: Sedated, RASS -3 laboratory and microbiology Laboratory Tests 02/20/24 13:38 02/20/24 03:15 Test 02/20/24 13:38 Range/Units Serum Glucose 147 #H 74-106 mg/dL Microbiology Date/Time Source Procedure Growth Status 02/19/24 22:00 Nose MRSA Screen - Final Complete 02/19/24 17:40 Blood Blood Culture - Preliminary NO GROWTH AFTER 24 HOURS OF INCUBATION. Resulted 02/19/24 14:46 Sputum Gram Stain - Final Resulted 02/19/24 14:46 Sputum Respiratory Culture - Preliminary Resulted Problem List/Assessment/Plan Problem List/Assessment/Plan NEUROLOGY Subacute versus chronic stroke -CT head(03/21/24):Small lower density in the anterior inferior left frontal lobe and in the anterior aspect of the left internal capsule which may be age- indeterminate or subacute to chronic infarcts. -neurology consultation -pending MRI and results of EEG. Sedated on mechanical ventilation -on Versed 50 mg/hour, fentanyl 225 mg/hour CARDIOVASCULAR Cardiac arrest SP ROSC -Coded on 02/19/24. Downtime 11 mintues. Septic shock due to Gram-positive/Gram-negative pneumonia, -on vasopressors norepinephrine 27.98: Titrating down -titrating down IV fluid half NS bicarb 60 mL/hour -IV antibiotic with meropenem and vancomycin -pending culture including respiratory culture, blood culture, urine culture -lactic acid:3.2 -Discontinue steroids given hemodynamic stability with one pressor. -CT chest(03/21/24):CT scan of chest and abdomen:1. CHF/volume overload with mild cardiomegaly, small to moderate bilateral pleural effusions, interstitial pulmonary edema, diffuse body wall edema and mild ascites. 2. Patchy and confluent airspace consolidations in all 5 lobes which could reflect multifocal pneumonia and/or pulmonary edema. 3. Endotracheal , gastric tubes, and right IJ central venous catheter are in place as described. 4. Right posterior approach percutaneous nephrostomy tube in place. No hydronephrosis in either kidney. 5. Bilateral urothelial thickening and diffuse bladder wall thickening. Correlate with urinalysis for ascending infection and cystitis, respectively. 6. Nonobstructing bilateral renal calculi. 7. Moderate retained stool in the colon. NSTEMI type 2 likely due to above -continue current management of septic shock -cardiology: No origin coronary Angiography needed at this point -EKG: Sinus tachycardia with no ST elevation. Acute on chronic HFrEF( EF 30%) -Repeat echo as per cardiology -BNP(02/19/24):2390 -underwent dialysis: 2.7 L removed paroxysmal AFIB with secondary hypercoagulable state , Currently sinus rhythm. -chads Vasc 3/has bled 2 -Home med: Eliquis 5 mg BID lactic acidosis due to septic shock -repeat tomorrow RESPIRATORY Acute hypoxic respiratory failure due to pneumonia -on ventilator: Volume control, respiratory rate 26, FiO2 500, FiO2 40%, peep 15: Titrating down PEEP slowly. -pending respiratory culture -continue current management of septic shock Pulmonary edema -Repeat Chest xray in AM /KIDNEY YOMI due to VMN in setting of septic shock and CHF -Dialysis(02/20/24): 2.7 L removed -Continue IV 1/2 NS bicarb 60 ml/hr -Continue monitor I/O -Nephrology on board: decided to do dialysis -Inserted Left IJ Sravan catheter. ? Acute cystitis -follow with urinalysis and culture. -Continue antibiotics with meropenam and v=vancomycin Nonobstructing bilateral renal calculi with Right nephrostomy -Underwent bilateral nephrostomy ,currently has right nephrostomy tube. -nephrostomy tube patent Hyperkalemia; resolved GI Mild ascitis -Continue monitor Constipation -PRN lactulose ENDO Uncontrolled diabetes mellitus type 2, HGB A1c 7.4 -initially patient was on insulin drip, discontinued given lower trend of glucose -moderate insulin sliding scale Hypocalcemia and hyperphosphatemia -continue with dialysis. LINES Right IJ (02/19/24) Left IJ Sravan cath(02/20/24) Chantal (02/19/24) Barfield GT tube NUTRITION Nepro: 10 ml per hour, Target 40 ml/hr DVT Prophylaxis: heparin PUD prophylaxis: protonix. Code status discussed with mother greater than 22 minutes full code. Critical care time excluding procedures > 84 minutes Plan discussed with Dr Marina Plan discussed with: Other (Mother and RN) My Orders My Orders Orders - FLORINA DE RESIDENT Procedure Category Date Status Time Electrocardigram EKG 02/20/24 Logged 08:46 Meropenem 500mg Ivpb PHA 02/20/24 In Process (Merrem 500mg/Ns) 10:00 Fludrocortisone PHA 02/21/24 In Process Tablet (Florinef 10:00 Chest Portable XY 02/20/24 Resulted 12:45 Glucose Blood PHA 02/20/24 In Process (Accu-Chek Comfort 16:00 Insulin R (Human) PHA 02/20/24 In Process (Insulin R) 16:00 Dextrose 50% Syringe PHA 02/20/24 In Process 15:15 Nutritional PHA 02/20/24 In Process Supplements (Nepro 15:15 Dietary Evaluation Review Comments: 1) If GI is accessible consider Glucerna 1.2 @ 75 ml/hr goal rate as tolerated 2) If pt remains NPO >7 days consider TPN to meet at least 75% of estimated needs 3) Advance pt diet when medically feasible to a Renal Specific K2,Low Phos,SAM,2gmNa,80gPro diet (if not receiving dialysis) 4) Continue current plan of care Expected Outcomes/Goals: 1) Pt to receive adequate nutrition support within 7 days of NPO status 2) Pt diet to advance 3) Pt labs to improve 4) F/U in 2-3 days Date of Service: Feb 20, 2024 Billing Provider: MAXIMILIANO CUENCA MD Common Visit Codes: 10914-IQVCLXIB CARE 30-74 MIN, 64125-[id number] CARE-EACH +30MIN FLORINA DE RESIDENT Feb 20, 2024 19:52 MAXIMILIANO CUENCA MD Feb 21, 2024 11:10
[2024-02-20] MEDS ORDERED: SODIUM BICARB 50mEq/50ml Vial 150 ML in SOD CHL 0.45% 1,000 ML IV SCH (20:00)
--- NOTE | 2024-02-20 20:06 | DVHNC2 ---
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 of account developer: Name of account developer (Dr De) Indication: Hypotension, CVP monitoring Room prepared for procedure: Yes Cargo Surveyor performed hand hygien: Yes Maximal sterile barrier precau: Mask/Eye shield, Sterile gown, Cap, Sterlie gloves, Large sterlie drape Skin Preparation: Chlorhexidine gluconate, Alcohol Skin preparation completely dr: Yes Insertion site: Left, Internal jugular Central line catheter type: Dialysis non-tunneled Central line exchanged over a: No Post Assessment: Proper placement, No Pneumothorax Informed consent obtained: Yes Risks/benefits/alt described: Yes Notes ULTRASOUND-GUIDED RIGHT INTERNAL JUGULAR CENTRAL VENOUS CANNULATION INDICATIONS FOR PROCEDURE: Dialysis Emergent procedure. Medically necessary for administration of vaso-active medications. DESCRIPTION OF PROCEDURE IN DETAIL: The patient was lying in the Trendelenburg position with head turned 30 degrees away from the insertion site. The skin was thoroughly sponged with chlorhexidine and allowed to dry. All persons involved were shielded with hair nets, face masks and sterile gowns. With sterile-gloved hands the right neck area was draped with the large disposable sterile field provided in the pre-manufactured kit. The skin and subcutaneous tissues superficial to the left internal jugular vein were anesthetized with 2 mL of 1% lidocaine. The RIGHT internal jugular vein was identified on ultrasound from the angle of the mandible down into the supraclavicular fossa using the linear ultrasound probe in the transverse orientation. The carotid artery was identified and avoided utilizing color-flow. The internal jugular vein was then placed in the center of the ultrasound field and compressed for patency. A movement artifact was identified as the needle was advanced through the skin and advanced toward the vessel. A real time hyperechoic signal revealed visualization of vascular needle entry into the lumen as blood was noted to flashback in the syringe. The needle was then held in place while the guide wire was advanced. The needle was then removed. Direct visualization of guide wire location within the vein was noted on ultrasound indicating proper placement and was document in the electronic medical record chart. A skin dilator was advanced over the guidewire and removed with two separate dilator and the two-lumen zuleyma catheter was then advanced over the guide wire into proper position. The guide wire was removed and discarded. The ports were aspirated which showed good blood return and then carefully flushed with normal saline. The catheter was stabilized and sutured to the skin at 2 anchor points. A sterile bio-patch and dressing was placed over the catheter, including the insertion site. The patient tolerated the procedure well. A chest x-ray was ordered for position confirmation. Post- procedure chest x-ray is done, No pneumothorax. Date of Service: Feb 20, 2024 Billing Provider: MAXIMILIANO CUENCA MD Common Visit Codes: PROCEDURE ONLY Procedure Codes: 02304-[id number] NON-TUNNEL CV CATH FLORINA DE Feb 20, 2024 20:06 MAXIMILIANO CUENCA MD Feb 21, 2024 11:11
[2024-02-20] MEDS: EPOETIN ALFA-EPBX 10,000 UNIT/1ML VIAL SC ONE (20:32)
[2024-02-20 21:08] LABS: COVID19 ANTIGEN SOFIA FIA NEGATIVE (NEGATIVE); Rapid Influenza A Negative (Negative); Rapid Influenza B Negative (Negative)
--- NOTE | 2024-02-20 21:25 | DVHEEG2 ---
Neurology EEG Procedural Note Procedural Note EXAM DATE: 02/20/24 REFERRING DOCTOR: Dr. Avelar TECHNIQUE: Eighteen channels of EEG, 2 channels of EOG, and 1 channel of EKG were recorded using the International 10/20 system. CLINICAL DATA: The patient was referred for an EEG evaluation for the evidence of seizure disorder. MEDICATIONS: See chart BACKGROUND ACTIVITY: This record showed diffuse low amplitude mixed delta and theta activity over the both hemispheres, that was reactive to external stimuli ACTIVATION: Hyperventilation: Not done Photic Stimulation: Not done Sleep: Nonresponsiveness IMPRESSION: This is a remarkably abnormal EEG, this EEG seen in severe cerebral dysfunction due to metabolic/hypoxic encephalopathy or medication effects, please correlate clinically [place] [address] GUSTAVO AVELAR MD Feb 20, 2024 21:25
[2024-02-21] VITALS (106 sets, daily range): BP systolic 82–130; BP diastolic 20–86; PULSE 55–145; RESP 20–26; TEMP 97.5–99; O2SAT 94–100
[2024-02-21 00:04] LABS: Potassium 3.9 mmol/L (3.5-5.1)
[2024-02-21 00:11] LABS: Magnesium 1.7 mg/dL (1.6-2.6)
[2024-02-21] MEDS: MAGNESIUM SULFATE 1GM/100ML 200 ML IV ONE (00:46)
[2024-02-21] MEDS: MAGNESIUM SULFATE 1GM/100ML 100 ML IV SCH (00:46)
[2024-02-21 03:40] LABS: Basophils # (auto) 0 10 ^3/uL (0-0.2); Basophils % (auto) 0.1 % (0.0-2.0); Eosinophils # (auto) 0 10 ^3/uL (0-0.8); Hematocrit 25.5 % (41.0-53.0); Hemoglobin 8.5 g/dL (13.5-17.5); Lymphocytes # (auto) 1.7 10 ^3/uL (0.4-5.4); Lymphocytes % (auto) 9.2 % (10.0-50.0); Mean Corpuscular Hemoglobin 29.4 pg (28.0-32.0); Mean Corpuscular Hgb Conc. 33.2 g/dL (32.0-36.0); Mean Corpuscular Volume 88.7 fL (80.0-100.0); Monocytes # (auto) 1.2 10 ^3/uL (0-1.3); Monocytes % (auto) 6.4 % (0.0-12.0); Neutrophils # (auto) 15.9 10 ^3/uL (1.6-8.6); Neutrophils % (auto) 84.3 % (37.0-80.0); Platelet Count (auto) 332 10^3/uL (140-450); Red Blood Cells 2.87 10^6/uL (4.5-5.90); Red Cell Distribution Width 15.3 % (11.8-14.3); White Blood Cell 18.9 10^3/uL (4.4-10.8)
[2024-02-21 03:54] LABS: Alanine Aminotransferase 36 U/L (7-40); Alkaline Phosphatase 108 U/L (46-116); Anion Gap 8 (5-15); Aspartate Aminotransferase 11 U/L (13-40); Calcium 7.4 mg/dL (8.7-10.4); Carbon Dioxide 27 mmol/L (20-31); Chloride 106 mmol/L (98-107); Glucose 166 mg/dL (74-106); Potassium 3.8 mmol/L (3.5-5.1); Sodium 141 mmol/L (136-145)
[2024-02-21 03:55] LABS: Albumin 2.9 g/dL (3.2-4.8); Bilirubin, Total 0.6 mg/dL (0.2-1.0); Total Protein 5.2 g/dL (5.7-8.2)
[2024-02-21 04:18] LABS: Blood Urea Nitrogen 47 mg/dL (9-23)
--- NOTE | 2024-02-21 05:35 | DVH ---
CHEST RADIOGRAPH Indication:cardiac arrest Technique: Single frontal view of the chest was obtained Comparison: XY CHEST PORTABLE on DOS: 02/20/24 FINDINGS: Lines and Tubes: The endotracheal tube terminates 7.2 cm above claudio. Right and left central venous catheters are unchanged. The enteric tube courses below the left hemidiaphragm and the tip projects over the stomach. Lungs: Patchy bilateral consolidation similar to prior study. Pleura: No effusion. No pneumothorax. Cardiomediastinal contours: Unremarkable Bones: No acute osseous abnormality. IMPRESSION: 1. No significant interval change.
[2024-02-21 06:59] LABS: Base Excess 4.2 mmol/L (-2.0-3.0)
--- NOTE | 2024-02-21 08:15 | DVHPNRES ---
Progress Note Date Seen: Feb 21, 2024 Resident Creating Document: SHAKIRA STOCKTON Medical Necessity Reason Pt with a Central, PICC or Fol: Yes The following are medically ne: Central Line, Barfield Catheter Reason for barfield catheter: Bladder Retention/Obstruc, Strict I&O Subjective Review of Systems David Gilmore is a 52-year-old male presents to ER via EMS due to progressive dyspnea from functional class II to functional class IV which occurred previous 24 hours, per EMR patient was with mother was having difficulty sleeping and dyspnea got worse in the morning prompting his visit to the ER via EMS. Patient was intubated shortly after arrival to ER. Patient was diagnosed with septic shock secondary to multifocal pneumonia, complicated with cardiac arrest (pulseless electrical activity) currently status post ROSC. Cardiology was consulted for elevated troponin. Could not obtain review of systems due to patient's clinical status. Past medical history: Diabetes, hypertension, chronic kidney disease secondary to obstructive uropathy status post nephrostomy tube placement, paroxysmal atrial fibrillation (chads Vasc 3/ has bled 2), HFrEF (last echocardiogram done in 02/14/2024 LVEF 30%, grade 2 diastolic dysfunction, RVSP 47 mmHg, severe MR, [id number] TR), noncompliance Surgical history: Nephrostomy tube placement Family history: Noncontributory Social history: Could not obtain Allergies: Ampicillin, sulbactam Home medication: Amiodarone 200 mg p.o. b.i.d., amlodipine 10 mg p.o. daily, apixaban 5 mg p.o. b.i.d., carvedilol 3.125 mg p.o. b.i.d., finasteride 5 mg p.o. daily, sevelamer 800 mg p.o. t.i.d., sodium bicarbonate 650 mg p.o. q.i.d., tamsulosin 0.4 mg p.o. daily Patient seen and examined at bedside. Currently patient with sedation and analgesia due to mechanical assisted ventilation. Could not obtain review of systems. Her new overnight events, presented AFib RVR (already has history of paroxysmal atrial fibrillation), indicated maintenance of amiodarone, continue with heparin at this time, we will evaluate use of apixaban. Objective vital signs Vital Sign Date Time Temp Pulse Resp B/P (MAP) Pulse Ox O2 Delivery O2 Flow Rate FiO2 02/21/24 07:37 128 26 108/80 (89) 100 40 02/21/24 07:15 98.4 209.1 02/21/24 06:22 Mechanical Ventilator+ Total Intake and Output 02/20/24 02/20/24 02/21/24 15:00 23:00 07:00 Intake Total 453.500 ml 377.3460 ml 626.876 ml Output Total 600 ml 1750 ml Balance 453.500 ml -222.6540 ml -1123.124 ml medications Current Medications Medications Dose Ordered Sig/Kishan Route Start Time Stop Time Status Last Admin Dose Admin Propofol 100 ml @ 2.7 mls/hr Q24H IV 02/19/24 14:45 02/19/24 14:45 2.7 MLS/HR Midazolam HCl 50 ml @ 1 mls/hr Q24H IV 02/19/24 17:15 02/21/24 05:58 15 MLS/HR Ondansetron HCl 4 mg Q4HP PRN IV 02/19/24 19:00 Enoxaparin Sodium 40 mg BID SC 02/19/24 22:00 UNV Nitroglycerin 0.4 mg Q5MINP PRN SL 02/19/24 19:00 Morphine Sulfate 2 mg Q30M PRN IV 02/19/24 19:00 Cefepime HCl 50 ml @ 12.5 mls/hr DAILY IV 02/20/24 10:00 UNV Phenylephrine HCl 250 ml @ 30 mls/hr Q8H20M IV 02/19/24 19:45 UNV Vasopressin 20 units/Sodium Chloride 100 ml @ 9 mls/hr Q11H7M IV 02/19/24 19:45 02/19/24 19:45 9 MLS/HR Phenylephrine HCl 80 mg/Sodium Chloride 250 ml @ 7.5 mls/hr Q24H IV 02/19/24 21:15 02/19/24 23:17 16.875 MLS/HR Norepinephrine Bitartrate 32 mg/ Sodium Chloride 250 ml @ 0.938 mls/ hr Q24H IV 02/19/24 21:15 02/20/24 11:34 13.125 MLS/HR Fentanyl Citrate 250 ml @ 2.5 mls/hr Q24H IV 02/19/24 22:30 02/21/24 06:47 22.5 MLS/HR Dextrose 50 ml UD PRN IV 02/20/24 00:15 Cancel Calcium Gluconate/ Sodium Chloride 50 ml @ 100 mls/hr Q30M IV 02/20/24 08:15 02/20/24 09:14 Cancel Vancomycin HCl 0 ml @ 0 mls/hr UD IV 02/20/24 08:15 Pantoprazole Sodium 40 mg DAILY IV 02/20/24 10:00 02/20/24 11:27 40 MG Meropenem 50 ml @ 17 mls/hr Q12HR IV 02/20/24 10:00 02/20/24 21:35 17 MLS/HR Fludrocortisone Acetate 0.1 mg DAILY GT 02/21/24 10:00 Diagnostic Test (Pha) 1 strip IQ4HR 02/20/24 16:00 02/21/24 04:16 1 STRIP Insulin Human Regular IQ4HR SC 02/20/24 16:00 02/21/24 04:17 2 UNITS Dextrose 50 ml UD PRN IV 02/20/24 15:15 Enteral Nutritional Formula 1,000 ml 40ML/HR NG 02/20/24 15:15 Sodium Chloride 1,000 ml @ 60 mls/hr [id number] IV 02/21/24 08:00 Amiodarone HCl 250 ml @ 33.333 mls/ hr Q7H30M IV 02/21/24 08:00 02/21/24 13:59 Amiodarone HCl 250 ml @ 16.667 mls/ hr Q15H IV 02/21/24 14:00 Apixaban 5 mg BID GT 02/21/24 10:00 UNV Examination Patient lying in bed, under sedoanalgesia due to mechanical ventilation General: RASS -3, afebrile, mucosae are moist Cardiovascular: Normal S1 and S2. No murmurs, gallops or rubs Respiratory: Mechanically assisted ventilation, equal bilateral airway entree. Bibasilar rales, rest of lung auscultation is clear Abdomen: Soft, nontender, no organomegaly, normal bowel sounds MSK/skin: Mobilization of limbs cannot be evaluated. Skin is dry and warm Neurological: Orientation cannot be assessed. No apparent motor no sensitive deficits. Pupils are asymmetric (right pupil is larger than left pupil), nonreactive laboratory and microbiology Laboratory Tests 02/21/24 03:14 Test 02/21/24 03:14 Range/Units Serum Glucose 166 H 74-106 mg/dL Microbiology Date/Time Source Procedure Growth Status 02/19/24 22:00 Nose MRSA Screen - Final Complete 02/19/24 17:40 Blood Blood Culture - Preliminary NO GROWTH AFTER 24 HOURS OF INCUBATION. Resulted 02/19/24 14:46 Sputum Gram Stain - Final Resulted 02/19/24 14:46 Sputum Respiratory Culture - Preliminary Resulted Problem List/Assessment/Plan Problem List/Assessment/Plan Assessment Cardiac arrest (pulseless electrical activity) status post ROSC NSTEMI probable type 2 Acute on chronic systolic congestive heart failure (HFrEF, LVEF 30%) Paroxysmal atrial fibrillation (chads Vasc 3/has bled 2) secondary hypercoagulability state - currently in AFib RVR Severe MR Acute respiratory failure secondary to multifocal pneumonia ARDS Septic shock Acute kidney injury hemodynamically mediated on CKD Diabetes Plan/Recommendation Elevated troponin likely secondary to septic shock due to multifocal pneumonia and chronic disease. EKG on admission shows sinus tachycardia with no ST elevation. No need for urgent coronary angiography at this time. Optimize loading conditions, patient currently needs high doses of vasopressors (was on multiple vasopressors less than 24 hours ago, currently only on norepinephrine) IV antibiotics per hospitalist Indicated IV amiodarone maintenance, continue with heparin and we will evaluate initiating apixaban. Echocardiogram post cardiac arrest: [id number] concentric LVH, LVEF 15%, moderately dilated RV, RVSP 27 mmHg, moderate MR, [id number] AR, moderate TR, no pericardial effusion Drips Norepinephrine 4 Versed 15 Fentanyl 225 Amiodarone [address] Mcdowell, and nurses: Continue treatment for septic shock secondary to multifocal pneumonia at this point, urgent need for coronary angiography at this time. New echocardiogram shows decrease in LVEF from 30- 15%. Patient has poor prognosis Plan discussed with: Patient, Spouse, Other (Nurses) My Orders My Orders Orders - SHAKIRA STOCKTON RESIDENT Procedure Category Date Status Time Vancomycin Per PHA 02/20/24 In Process Pharmacy 08:15 Urine Bacterial YEHUDA 02/20/24 In Process Culture 08:11 Pantoprazole PHA 02/20/24 In Process (Protonix) 10:00 Vancomycin Per COURTNEY 10/23/24 In Process Pharmacy Protoc 12:00 Echo 2d Mode Cardiac US 02/21/24 Logged DOP 12:00 Dietary Evaluation Review Comments: 1) If GI is accessible consider Glucerna 1.2 @ 75 ml/hr goal rate as tolerated 2) If pt remains NPO >7 days consider TPN to meet at least 75% of estimated needs 3) Advance pt diet when medically feasible to a Renal Specific K2,Low Phos,SAM,2gmNa,80gPro diet (if not receiving dialysis) 4) Continue current plan of care Expected Outcomes/Goals: 1) Pt to receive adequate nutrition support within 7 days of NPO status 2) Pt diet to advance 3) Pt labs to improve 4) F/U in 2-3 days Visit Coding Cardiology RES Date of Service: Feb 21, 2024 Billing Provider: MARY LOU MCDOWELL MD, MELISA RESIDENT Feb 21, 2024 08:15
[2024-02-21] MEDS: SODIUM CHLORIDE 0.9% 1,000 ML IV SCH (08:49)
[2024-02-21] MEDS: AMIODARONE 450mg/250ml AE 250 ML IV SCH ×2 (08:49→14:50)
--- NOTE | 2024-02-21 09:21 | DVHPN2 ---
Progress Note - Dictate Date Seen: Feb 21, 2024 Medical Necessity Reason Pt with a Central, PICC or Fol: Yes The following are medically ne: Central Line, Barfield Catheter Reason for barfield catheter: Bladder Retention/Obstruc, Strict I&O Subjective Mr. Gilmore is a 40 years old left-handed gentleman with a history of hypertension, diabetes, congestive heart failure, chronic kidney disease, the patient was brought to the [facility] on 02/19/2024 with a chief company of shortness breath, his CT brain scan showed evidence suggestive a stroke, I have seen and examined the patient, I discussed with his nurse, he is intubated, sedated, he responds to light painful stimuli Telemetry she was ongoing atrial fibrillation Pupils size: Rt: 2-3, Lt: 2mm, sluggish reactive Blood culture, 02/19/2024: UDS, 02/19/2024: Negative ABG, 02/19/2024: metabolic and respiratory acidosis, 02/20/2024: Metabolic acidosis WBC/HB/PLT/MCV, 02/20/24: 25.1/10.2/418/90.8 BUN/CR, 02/19/2024: 74/5.35 GFR, 02/19/2024: 12 HGB A1c, 02/10/2024: 76 Glucose, 02/20/2024: 469, 468, 475, 437 Lactic acid, 02/19/2024: 4.2, three, two TBI/AST/ALT/AP, 02/20/2024: 0.5/46/59/163 Troponin one high sensitivity, 02/19/2024: 238, 652, 1010, 06/22/2023: 1886 Beta h hydroxybutyric acid, 02/20/2024: 0.116 TG/HDL/LDL/HDL, 01/2024, 125/193/121/52 EEG : Remarkably abnormal EEG Chest, 02/19/2024: Bilateral pleural effusions CT head, 02/19/2024: 1. No acute intracranial hemorrhage or mass effect. 2. Mild nonspecific white matter disease which may be related to chronic small-vessel ischemia. 3. Small lower density in the anterior inferior left frontal lobe and in the anterior aspect of the left internal capsule which may be age- indeterminate or subacute to chronic infarcts. 4. Partially imaged dental caries and periapical lucencies in maxillary teeth vital signs Vital Sign Date Time Temp Pulse Resp B/P (MAP) Pulse Ox O2 Delivery O2 Flow Rate FiO2 02/21/24 07:37 128 26 108/80 (89) 100 40 02/21/24 07:15 98.4 209.1 02/21/24 06:22 Mechanical Ventilator+ Total Intake and Output 02/20/24 02/20/24 02/21/24 15:00 23:00 07:00 Intake Total 453.500 ml 377.3460 ml 626.876 ml Output Total 600 ml 1750 ml Balance 453.500 ml -222.6540 ml -1123.124 ml medications Current Medications Medications Dose Ordered Sig/Kishan Route Start Time Stop Time Status Last Admin Dose Admin Propofol 100 ml @ 2.7 mls/hr Q24H IV 02/19/24 14:45 02/19/24 14:45 2.7 MLS/HR Midazolam HCl 50 ml @ 1 mls/hr Q24H IV 02/19/24 17:15 02/21/24 05:58 15 MLS/HR Ondansetron HCl 4 mg Q4HP PRN IV 02/19/24 19:00 Enoxaparin Sodium 40 mg BID SC 02/19/24 22:00 UNV Nitroglycerin 0.4 mg Q5MINP PRN SL 02/19/24 19:00 Morphine Sulfate 2 mg Q30M PRN IV 02/19/24 19:00 Cefepime HCl 50 ml @ 12.5 mls/hr DAILY IV 02/20/24 10:00 UNV Phenylephrine HCl 250 ml @ 30 mls/hr Q8H20M IV 02/19/24 19:45 UNV Vasopressin 20 units/Sodium Chloride 100 ml @ 9 mls/hr Q11H7M IV 02/19/24 19:45 02/19/24 19:45 9 MLS/HR Phenylephrine HCl 80 mg/Sodium Chloride 250 ml @ 7.5 mls/hr Q24H IV 02/19/24 21:15 02/19/24 23:17 16.875 MLS/HR Norepinephrine Bitartrate 32 mg/ Sodium Chloride 250 ml @ 0.938 mls/ hr Q24H IV 02/19/24 21:15 02/20/24 11:34 13.125 MLS/HR Fentanyl Citrate 250 ml @ 2.5 mls/hr Q24H IV 02/19/24 22:30 02/21/24 06:47 22.5 MLS/HR Dextrose 50 ml UD PRN IV 02/20/24 00:15 Cancel Calcium Gluconate/ Sodium Chloride 50 ml @ 100 mls/hr Q30M IV 02/20/24 08:15 02/20/24 09:14 Cancel Vancomycin HCl 0 ml @ 0 mls/hr UD IV 02/20/24 08:15 Pantoprazole Sodium 40 mg DAILY IV 02/20/24 10:00 02/20/24 11:27 40 MG Meropenem 50 ml @ 17 mls/hr Q12HR IV 02/20/24 10:00 02/20/24 21:35 17 MLS/HR Fludrocortisone Acetate 0.1 mg DAILY GT 02/21/24 10:00 Diagnostic Test (Pha) 1 strip IQ4HR 02/20/24 16:00 02/21/24 08:36 1 STRIP Insulin Human Regular IQ4HR SC 02/20/24 16:00 02/21/24 08:41 2 UNITS Dextrose 50 ml UD PRN IV 02/20/24 15:15 Enteral Nutritional Formula 1,000 ml 40ML/HR NG 02/20/24 15:15 Sodium Chloride 1,000 ml @ 60 mls/hr [id number] IV 02/21/24 08:00 02/21/24 08:49 60 MLS/HR Amiodarone HCl 250 ml @ 33.333 mls/ hr Q7H30M IV 02/21/24 08:00 02/21/24 13:59 02/21/24 08:49 33.333 MLS/HR Amiodarone HCl 250 ml @ 16.667 mls/ hr Q15H IV 02/21/24 14:00 Apixaban 5 mg BID GT 02/21/24 10:00 objective The patient is well-nourished and well-developed with no distress. The patient is intubated MENTAL STATUS: Subjective CRANIAL NERVES: Pupils are round, and slightly reactive. There are corneal reflexes and doll's eyes phenomenon. No signs of facial weakness. There are gagging or coughing reflexes SENSATION: No responses to pain stimuli. MOTOR: Normal tone in the upper and lower extremity. Normal muscle bulk. No fasciculations. No spontaneous movement. REFLEXES: Deep tendon reflexes are symmetrical. No pathological reflexes. CEREBELLAR/COORDINATION: Deferred GAIT/STATION: deferred. laboratory and microbiology Laboratory Tests 02/21/24 03:14 Test 02/21/24 03:14 Range/Units Serum Glucose 166 H 74-106 mg/dL Problem List Abnormal CT brain scan, to rule out stroke Coma Metabolic encephalopathy Hypoxic encephalopathy Toxic encephalopathy Cardiopulmonary arrest Acute respiratory failure Metabolic acidosis Respiratory acidosis Leukocytosis to rule out sepsis Shock liver Chronic kidney failure Paroxysmal AFib RVR Anisocoria, uncertain clinical significance Assessment/Plan Monitoring Supportive treatment Follow-up lab MRI head or Follow-up CT head ICU care Respiratory support/vent management Stabilize vitals Oxygen Eliquis 5 mg b.i.d. GI prophylaxis More recommendation per clinical course This medical document was created using an electronic medical record system with [employer] dictation system. Although this document has been carefully reviewed, there may still be some phonetic and typographical errors. These areas are purely typographical due to imperfections of the software programs, and do not reflect any compromise in the patient's medical care Prognosis Guarded Dietary Evaluation Review Comments: 1) If GI is accessible consider Glucerna 1.2 @ 75 ml/hr goal rate as tolerated 2) If pt remains NPO >7 days consider TPN to meet at least 75% of estimated needs 3) Advance pt diet when medically feasible to a Renal Specific K2,Low Phos,SAM,2gmNa,80gPro diet (if not receiving dialysis) 4) Continue current plan of care Expected Outcomes/Goals: 1) Pt to receive adequate nutrition support within 7 days of NPO status 2) Pt diet to advance 3) Pt labs to improve 4) F/U in 2-3 days Plan discussed with: Other Critical Care Time(min): 35 GUSTAVO AVELAR MD Feb 21, 2024 09:21
--- NOTE | 2024-02-21 09:24 | DVHPNRES ---
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 Patient was brought to the hospital via EMS for worsening shortness of breath for past few days as per mother. As per mother patient was complaining having difficulty breathing which was progressively worsening that prompted her to call EMS.. Initially patient was on CPAP on arrival to EMS however patient was intubated in emergency department. After intubation patient blood pressure progressively worsening and patient had cardiac arrest with pea . Code blue was called, down time was 11 minutes and ROSC was achieved after 11 minutes of code blue. PSH: None as per mother. Home meds: Metoprolol succinate 50 mg daily, Eliquis 5 mg p.o. b.i.d., sevelamer carbonate 800 mg p.o. t.i.d., sodium bicarbonate 650 mg p.o. q.i.d., tamsulosin 0.4 mg p.o. q.a.m.,Amlodipine 10 mg p.o. daily. Social history: NAD Family history: NAD ROS: Review of systems not obtained as patient is intubated. Patient seen and examined in ICU. Keep him on levo 2 given map was 57, Continue IV fluid, follow up with Nephrology. No night events Objective vital signs Vital Sign Date Time Temp Pulse Resp B/P (MAP) Pulse Ox O2 Delivery O2 Flow Rate FiO2 02/21/24 07:37 128 26 108/80 (89) 100 40 02/21/24 07:15 98.4 209.1 02/21/24 06:22 Mechanical Ventilator+ Total Intake and Output 02/20/24 02/20/24 02/21/24 15:00 23:00 07:00 Intake Total 453.500 ml 377.3460 ml 626.876 ml Output Total 600 ml 1750 ml Balance 453.500 ml -222.6540 ml -1123.124 ml medications Current Medications Medications Dose Ordered Sig/Kishan Route Start Time Stop Time Status Last Admin Dose Admin Propofol 100 ml @ 2.7 mls/hr Q24H IV 02/19/24 14:45 02/19/24 14:45 2.7 MLS/HR Midazolam HCl 50 ml @ 1 mls/hr Q24H IV 02/19/24 17:15 02/21/24 05:58 15 MLS/HR Ondansetron HCl 4 mg Q4HP PRN IV 02/19/24 19:00 Enoxaparin Sodium 40 mg BID SC 02/19/24 22:00 UNV Nitroglycerin 0.4 mg Q5MINP PRN SL 02/19/24 19:00 Morphine Sulfate 2 mg Q30M PRN IV 02/19/24 19:00 Cefepime HCl 50 ml @ 12.5 mls/hr DAILY IV 02/20/24 10:00 UNV Phenylephrine HCl 250 ml @ 30 mls/hr Q8H20M IV 02/19/24 19:45 UNV Vasopressin 20 units/Sodium Chloride 100 ml @ 9 mls/hr Q11H7M IV 02/19/24 19:45 02/19/24 19:45 9 MLS/HR Phenylephrine HCl 80 mg/Sodium Chloride 250 ml @ 7.5 mls/hr Q24H IV 02/19/24 21:15 02/19/24 23:17 16.875 MLS/HR Norepinephrine Bitartrate 32 mg/ Sodium Chloride 250 ml @ 0.938 mls/ hr Q24H IV 02/19/24 21:15 02/20/24 11:34 13.125 MLS/HR Fentanyl Citrate 250 ml @ 2.5 mls/hr Q24H IV 02/19/24 22:30 02/21/24 06:47 22.5 MLS/HR Dextrose 50 ml UD PRN IV 02/20/24 00:15 Cancel Calcium Gluconate/ Sodium Chloride 50 ml @ 100 mls/hr Q30M IV 02/20/24 08:15 02/20/24 09:14 Cancel Vancomycin HCl 0 ml @ 0 mls/hr UD IV 02/20/24 08:15 Pantoprazole Sodium 40 mg DAILY IV 02/20/24 10:00 02/20/24 11:27 40 MG Meropenem 50 ml @ 17 mls/hr Q12HR IV 02/20/24 10:00 02/20/24 21:35 17 MLS/HR Fludrocortisone Acetate 0.1 mg DAILY GT 02/21/24 10:00 Diagnostic Test (Pha) 1 strip IQ4HR 02/20/24 16:00 02/21/24 08:36 1 STRIP Insulin Human Regular IQ4HR SC 02/20/24 16:00 02/21/24 08:41 2 UNITS Dextrose 50 ml UD PRN IV 02/20/24 15:15 Enteral Nutritional Formula 1,000 ml 40ML/HR NG 02/20/24 15:15 Sodium Chloride 1,000 ml @ 60 mls/hr [id number] IV 02/21/24 08:00 02/21/24 08:49 60 MLS/HR Amiodarone HCl 250 ml @ 33.333 mls/ hr Q7H30M IV 02/21/24 08:00 02/21/24 13:59 02/21/24 08:49 33.333 MLS/HR Amiodarone HCl 250 ml @ 16.667 mls/ hr Q15H IV 02/21/24 14:00 Apixaban 5 mg BID GT 02/21/24 10:00 Examination General Appearance: Sedated on mechanical ventilation. Head Exam: Normal inspection Neck Exam: Normal inspection. Non-tender. Normal alignment Pulmonary/Respiratory: Chest non-tender. Bilateral lungs crackles. Cardiovascular/Chest: Regular rate and rhythm. No murmurs. No JVD. Peripheral Pulses: 2+ Radial (R). 2+ Radial (L). 2+ Pedal (R). 2+ Pedal (L) Abdominal Exam: Normal bowel sounds. Soft. Nontender. No hepatospenomegaly. No masses Ankle Exam: Negative ankle edema Lower extremities: Negative lower extremity edema Neuro/Mental Status: Sedated, RASS -3 laboratory and microbiology Laboratory Tests 02/21/24 03:14 Test 02/21/24 03:14 Range/Units Serum Glucose 166 H 74-106 mg/dL Microbiology Date/Time Source Procedure Growth Status 02/19/24 22:00 Nose MRSA Screen - Final Complete 02/19/24 17:40 Blood Blood Culture - Preliminary NO GROWTH AFTER 24 HOURS OF INCUBATION. Resulted 02/19/24 14:46 Sputum Gram Stain - Final Resulted 02/19/24 14:46 Sputum Respiratory Culture - Preliminary Resulted Problem List/Assessment/Plan Problem List/Assessment/Plan NEUROLOGY Subacute versus chronic stroke -CT head(03/21/24):Small lower density in the anterior inferior left frontal lobe and in the anterior aspect of the left internal capsule which may be age- indeterminate or subacute to chronic infarcts. -neurology consultation -pending MRI and results of EEG. Sedated on mechanical ventilation -on Versed 50 mg/hour, fentanyl 225 mg/hour CARDIOVASCULAR Cardiac arrest SP ROSC -Coded on 02/19/24. Downtime 11 mintues. Septic shock due to Gram-positive/Gram-negative pneumonia, -on vasopressors norepinephrine 2: Titrating down -titrating down IV fluid half NS bicarb 60 mL/hour -IV antibiotic with meropenem and vancomycin -pending culture including respiratory culture, blood culture, urine culture -Discontinue steroids given hemodynamic stability with one pressor. -CT chest(03/21/24):CT scan of chest and abdomen:1. CHF/volume overload with mild cardiomegaly, small to moderate bilateral pleural effusions, interstitial pulmonary edema, diffuse body wall edema and mild ascites. 2. Patchy and confluent airspace consolidations in all 5 lobes which could reflect multifocal pneumonia and/or pulmonary edema. 3. Endotracheal , gastric tubes, and right IJ central venous catheter are in place as described. 4. Right posterior approach percutaneous nephrostomy tube in place. No hydronephrosis in either kidney. 5. Bilateral urothelial thickening and diffuse bladder wall thickening. Correlate with urinalysis for ascending infection and cystitis, respectively. 6. Nonobstructing bilateral renal calculi. 7. Moderate retained stool in the colon. NSTEMI type 2 likely due to above -continue current management of septic shock -cardiology: No origin coronary Angiography needed at this point -EKG: Sinus tachycardia with no ST elevation. Acute on chronic HFrEF( EF 30%) -Repeat echo as per cardiology -BNP(02/19/24):2390 -underwent dialysis: 2.7 L removed lactic acidosis due to septic shock -repeat tomorrow Afib with RVR -Started on amiodrip -eliquis 5 mg GT BID RESPIRATORY Acute hypoxic respiratory failure due to pneumonia -on ventilator: Volume control, respiratory rate 26, FiO2 500, FiO2 40%, peep 6: Titrating down PEEP slowly. -pending respiratory culture -continue current management of septic shock -Off levo Pulmonary edema -Repeat Chest xray in AM /KIDNEY YOMI due to VMN in setting of septic shock and CHF -Dialysis(02/20/24): 2.7 L removed -Continue IV 1/2 NS bicarb 60 ml/hr -Continue monitor I/O -Nephrology on board: decided to do dialysis yesterday -Inserted Left IJ Sravan catheter. ? Acute cystitis -follow with urinalysis and culture. -Continue antibiotics with meropenam and vancomycin Nonobstructing bilateral renal calculi with Right nephrostomy -Underwent bilateral nephrostomy ,currently has right nephrostomy tube. -nephrostomy tube patent Hyperkalemia; resolved GI Mild ascitis -Continue monitor Constipation -PRN lactulose ENDO Uncontrolled diabetes mellitus type 2, HGB A1c 7.4 -initially patient was on insulin drip, discontinued given lower trend of glucose -moderate insulin sliding scale Hypocalcemia and hyperphosphatemia -continue with dialysis. LINES Right IJ (02/19/24) Left IJ Sravan cath(02/20/24) Chantal (02/19/24) Barfield GT tube NUTRITION Nepro: 10 ml per hour, Target 40 ml/hr DVT Prophylaxis: heparin PUD prophylaxis: protonix. Code status discussed with mother greater than 22 minutes full code. Critical care time > 81 minutes Plan discussed with Dr Marina Plan discussed with: Other My Orders My Orders Orders - FLORINA DE RESIDENT Procedure Category Date Status Time Meropenem 500mg Ivpb PHA 02/20/24 In Process (Merrem 500mg/Ns) 10:00 Fludrocortisone PHA 02/21/24 In Process Tablet (Florinef 10:00 Chest Portable XY 02/20/24 Resulted 12:45 Glucose Blood PHA 02/20/24 In Process (Accu-Chek Comfort 16:00 Insulin R (Human) PHA 02/20/24 In Process (Insulin R) 16:00 Dextrose 50% Syringe PHA 02/20/24 In Process 15:15 Nutritional PHA 02/20/24 In Process Supplements (Nepro 15:15 Sodium Chloride 0.9% PHA 02/21/24 In Process 08:00 Amiodarone PHA 02/21/24 In Process 450mg/250ml Ae 08:00 Amiodarone PHA 02/21/24 In Process 450mg/250ml Ae 14:00 Apixaban (Eliquis) PHA 02/21/24 In Process 10:00 Dietary Evaluation Review Comments: 1) If GI is accessible consider Glucerna 1.2 @ 75 ml/hr goal rate as tolerated 2) If pt remains NPO >7 days consider TPN to meet at least 75% of estimated needs 3) Advance pt diet when medically feasible to a Renal Specific K2,Low Phos,SAM,2gmNa,80gPro diet (if not receiving dialysis) 4) Continue current plan of care Expected Outcomes/Goals: 1) Pt to receive adequate nutrition support within 7 days of NPO status 2) Pt diet to advance 3) Pt labs to improve 4) F/U in 2-3 days Date of Service: Feb 21, 2024 Billing Provider: MAXIMILIANO CUENCA MD Common Visit Codes: 83234-FOQIZZPV CARE 30-74 MIN, 10919-[id number] CARE-EACH +30MIN FLORINA DE RESIDENT Feb 21, 2024 09:24 MAXIMILIANO CUECNA MD Feb 23, 2024 21:18
[2024-02-21] MEDS ORDERED: INSULIN LANTUS (GLARGINE) 1 /0.01ml (100units/ml) SC SCH (10:00)
[2024-02-21] MEDS: FLUDROCORTISONE ACETATE 0.1 MG TAB GT SCH (10:36)
[2024-02-21] MEDS: APIXABAN 5 MG TAB GT SCH (10:36)
--- NOTE | 2024-02-21 10:44 | DVHSR ---
APPROVED REPORT EXAM: Two-dimensional and M-mode echocardiogram with Doppler and color Doppler. Blood Pressure: 108/80 mmHg INDICATION Post Cardiac arrest RISK FACTORS Height: 6', Weight: 203 DIMENSIONS LVDd5.1 (3.8-5.7cm)LA (2D)5.4 (1.9-4.0cm)Aortic Root3.2 (2.0-3.7cm) LVDs4.8 (2.5-4.0cm)LA (MM) (1.9-4.0cm)Aortic Cusp Exc0.6 (1.5-2.0cm) EF (%) 16.0 (55-70%)Rt. Atrium4.7 (1.9-4.0cm)Asc. Aorta3.3 cm IVSd1.9 (0.7-1.1cm)RV (D)4.4 (1.8-2.4cm) PWd0.9 (0.7-1.1cm) Mitral Valve MitralMitral Stenosis E/A ratio0.02D MVAcm2 Aortic Valve Aortic ValveAortic Stenosis V10.75m/Yael Mean GR.14mmHg V22.34m/Yael Peak GR.22mmHg LVOT Diameter2.2 (1.8-2.4cm)Doppler AVA1.22cm2 Tricuspid Valve TR Velocity2.45m/s [id number] Conclusion Gtfe-ft-hcljtuhe concentric left ventricular hypertrophy. Severely reduced left ventricular systolic function with estimated ejection fraction 15% in a global fashion. Moderately dilated right ventricle moderately reduced left ventricular systolic function. Estimated right ventricular systolic [id number] mm of mercury Moderately dilated right and left atria. Moderate mitral valve regurgitation. There is lgdd-wa-zxeupijy aortic valve regurgitation. Moderate tricuspid valve regurgitation. The pulmonary valve is grossly normal. No pericardial effusion.
--- NOTE | 2024-02-21 12:32 | DVHPN2 ---
Progress Note Date Seen: Feb 21, 2024 Medical Necessity Reason Pt with a Central, PICC or Fol: Yes The following are medically ne: Central Line, Barfield Catheter Reason for barfield catheter: Bladder Retention/Obstruc, Strict I&O Subjective Patient reports: Other (events noted) Review of Systems: Deferred Objective vital signs Vital Sign Date Time Temp Pulse Resp B/P (MAP) Pulse Ox O2 Delivery O2 Flow Rate FiO2 02/21/24 11:40 66 24 99/54 (69) 100 30 02/21/24 07:15 98.4 209.1 02/21/24 06:22 Mechanical Ventilator+ Total Intake and Output 02/20/24 02/20/24 02/21/24 15:00 23:00 07:00 Intake Total 453.500 ml 377.3460 ml 626.876 ml Output Total 600 ml 1750 ml Balance 453.500 ml -222.6540 ml -1123.124 ml medications Current Medications Medications Dose Ordered Sig/Kishan Route Start Time Stop Time Status Last Admin Dose Admin Propofol 100 ml @ 2.7 mls/hr Q24H IV 02/19/24 14:45 02/19/24 14:45 2.7 MLS/HR Midazolam HCl 50 ml @ 1 mls/hr Q24H IV 02/19/24 17:15 02/21/24 09:17 15 MLS/HR Ondansetron HCl 4 mg Q4HP PRN IV 02/19/24 19:00 Enoxaparin Sodium 40 mg BID SC 02/19/24 22:00 UNV Nitroglycerin 0.4 mg Q5MINP PRN SL 02/19/24 19:00 Morphine Sulfate 2 mg Q30M PRN IV 02/19/24 19:00 Cefepime HCl 50 ml @ 12.5 mls/hr DAILY IV 02/20/24 10:00 UNV Phenylephrine HCl 250 ml @ 30 mls/hr Q8H20M IV 02/19/24 19:45 UNV Vasopressin 20 units/Sodium Chloride 100 ml @ 9 mls/hr Q11H7M IV 02/19/24 19:45 02/19/24 19:45 9 MLS/HR Phenylephrine HCl 80 mg/Sodium Chloride 250 ml @ 7.5 mls/hr Q24H IV 02/19/24 21:15 02/19/24 23:17 16.875 MLS/HR Norepinephrine Bitartrate 32 mg/ Sodium Chloride 250 ml @ 0.938 mls/ hr Q24H IV 02/19/24 21:15 02/20/24 11:34 13.125 MLS/HR Fentanyl Citrate 250 ml @ 2.5 mls/hr Q24H IV 02/19/24 22:30 02/21/24 06:47 22.5 MLS/HR Dextrose 50 ml UD PRN IV 02/20/24 00:15 Cancel Calcium Gluconate/ Sodium Chloride 50 ml @ 100 mls/hr Q30M IV 02/20/24 08:15 02/20/24 09:14 Cancel Vancomycin HCl 0 ml @ 0 mls/hr UD IV 02/20/24 08:15 Pantoprazole Sodium 40 mg DAILY IV 02/20/24 10:00 02/21/24 10:36 40 MG Meropenem 50 ml @ 17 mls/hr Q12HR IV 02/20/24 10:00 02/21/24 10:36 17 MLS/HR Diagnostic Test (Pha) 1 strip IQ4HR 02/20/24 16:00 02/21/24 12:21 1 STRIP Insulin Human Regular IQ4HR SC 02/20/24 16:00 02/21/24 12:23 2 UNITS Dextrose 50 ml UD PRN IV 02/20/24 15:15 Enteral Nutritional Formula 1,000 ml 40ML/HR NG 02/20/24 15:15 Amiodarone HCl 250 ml @ 33.333 mls/ hr Q7H30M IV 02/21/24 08:00 02/21/24 13:59 02/21/24 08:49 33.333 MLS/HR Amiodarone HCl 250 ml @ 16.667 mls/ hr Q15H IV 02/21/24 14:00 Heparin Sodium/ Dextrose 250 ml @ 10 mls/hr Q24H IV 02/21/24 22:00 Examination: GENERAL:Abnormal, LUNGS:Abnormal, NEURO:Abnormal laboratory and microbiology Laboratory Tests 02/21/24 03:14 Test 02/21/24 03:14 Range/Units Serum Glucose 166 H 74-106 mg/dL Microbiology Date/Time Source Procedure Growth Status 02/20/24 18:02 Urine - Catheterized Urine Culture - Preliminary Resulted 02/19/24 22:00 Nose MRSA Screen - Final Complete 02/19/24 17:40 Blood Blood Culture - Preliminary NO GROWTH AFTER 24 HOURS OF INCUBATION. Resulted 02/19/24 14:46 Sputum Gram Stain - Final Resulted 02/19/24 14:46 Sputum Respiratory Culture - Preliminary Resulted Problem List/Assessment/Plan Problem List/Assessment/Plan Acute kidney injury superimposed Chronic Kidney Disease 4/ 5 secondary hemodynamic mediated Acute respiratory failure, intubated on ventilator Septic shock Obstructive uropathy Bilateral nephrolithiasis Right nephrostomy tube Congestive heart failure exacerbation Bilateral pneumonia Diabetes mellitus type 2 Hyperglycemia Anemia of chronic kidney disease Recommendations no need for urgent HD DC ivf/lasix iv IV antibiotics Urology consult We will continue to follow good uop Plan discussed with: Other Dietary Evaluation Review Comments: 1) If GI is accessible consider Glucerna 1.2 @ 75 ml/hr goal rate as tolerated 2) If pt remains NPO >7 days consider TPN to meet at least 75% of estimated needs 3) Advance pt diet when medically feasible to a Renal Specific K2,Low Phos,SAM,2gmNa,80gPro diet (if not receiving dialysis) 4) Continue current plan of care Expected Outcomes/Goals: 1) Pt to receive adequate nutrition support within 7 days of NPO status 2) Pt diet to advance 3) Pt labs to improve 4) F/U in 2-3 days REBECCA NAIK MD Feb 21, 2024 12:32
[2024-02-21 13:10] LABS: INR 1.19 (0.9-1.15); Prothrombin Time 12.5 sec (9.3-11.8)
--- NOTE | 2024-02-21 16:33 | DVH ---
EXAM: CT HEAD WITHOUT CONTRAST INDICATION: follow up ct TECHNIQUE: CT of the head without intravenous contrast. Radiation dose : Head: CT Dose: CTDI volume is 61.5 mGy. Dose-length product is 1107.46 mGy*cm The dose indicators for CT are the volume computed tomography (CT) dose index (CTDIvol) and the dose length product (DLP), and are measured in units of mGy and mGy-cm, respectively. These indicators are not patient dose, but values generated from the CT scanner acquisition factors. The report includes radiation exposure data for exposures received during this examination. COMPARISON: CT HEAD WITHOUT CONTRAST on DOS: 02/19/24 FINDINGS: There is no evidence of acute intracranial hemorrhage, extra-axial collection, mass effect, midline s hift, herniation or hydrocephalus. The ventricles, sulci and cisterns are age appropriate. The marcano-white differentiation is intact. Patchy periventricular and subcortical white matter hypoattenuation is nonspecific but may be related to small vessel ischemic disease. Stable hypodensity anterior to the left lateral ventricle. The visualized paranasal sinuses and mastoid air cells are clear. The surrounding soft tissues and osseous structures are unremarkable. IMPRESSION: 1. No acute intracranial abnormality. No significant interval change. Radiation optimization: All CT scans at this facility use at least one of these dose optimization william hniques: Automated exposure control mA and/or kV adjustment per patient size (includes targeted exams where dose is matched to clinical indication) or iterative reconstruction. HS:Y
[2024-02-21] MEDS: FUROSEMIDE 40 MG/4 ML VIAL IV SCH (18:16)
[2024-02-21 21:29] LABS: INR 1.13 (0.9-1.15); Partial Thromboplastin Time 29.1 SEC (24.5-34.5); Prothrombin Time 11.9 sec (9.3-11.8)
[2024-02-21] MEDS: AMIODARONE HCL 200 MG TAB PO SCH (22:00)
[2024-02-21] MEDS: HEPARIN DRIP/D5W 100UNITS/ML 250 ML IV SCH (22:07)
[2024-02-22] VITALS (108 sets, daily range): BP systolic 88–135; BP diastolic 44–79; PULSE 53–82; RESP 11–26; TEMP 97.3–99; O2SAT 92–100
[2024-02-22 04:32] LABS: Eosinophils # (auto) 0.1 10 ^3/uL (0-0.8); Eosinophils % (auto) 0.5 % (0.0-7.0); Hemoglobin 8.4 g/dL (13.5-17.5); Lymphocytes # (auto) 2.6 10 ^3/uL (0.4-5.4); Neutrophils # (auto) 13.2 10 ^3/uL (1.6-8.6)
[2024-02-22 04:36] LABS: Basophils # (auto) 0 10 ^3/uL (0-0.2); Basophils % (auto) 0.2 % (0.0-2.0); Hematocrit 25.1 % (41.0-53.0); Lymphocytes % (auto) 14.8 % (10.0-50.0); Mean Corpuscular Hemoglobin 29.9 pg (28.0-32.0); Mean Corpuscular Hgb Conc. 33.5 g/dL (32.0-36.0); Mean Corpuscular Volume 89.1 fL (80.0-100.0); Monocytes # (auto) 1.3 10 ^3/uL (0-1.3); Monocytes % (auto) 7.8 % (0.0-12.0); Neutrophils % (auto) 76.7 % (37.0-80.0); Nucleated Red Blood Cells % 0.1 %; Platelet Count (auto) 320 10^3/uL (140-450); Red Blood Cells 2.82 10^6/uL (4.5-5.90); Red Cell Distribution Width 15.7 % (11.8-14.3); White Blood Cell 17.3 10^3/uL (4.4-10.8)
[2024-02-22 04:37] LABS: Anion Gap 8 (5-15); Calcium 7.7 mg/dL (8.7-10.4); Carbon Dioxide 28 mmol/L (20-31); Chloride 108 mmol/L (98-107); Potassium 3.5 mmol/L (3.5-5.1); Sodium 144 mmol/L (136-145)
[2024-02-22 04:40] LABS: INR 1.14 (0.9-1.15); Partial Thromboplastin Time 29.4 SEC (24.5-34.5)
[2024-02-22 04:43] LABS: Blood Urea Nitrogen 55 mg/dL (9-23); Glucose 125 mg/dL (74-106)
[2024-02-22] MEDS: HEPARIN SODIUM (PORCINE) 5000 UNITS/ML 1ML VIAL IV ONE (05:00)
[2024-02-22] MEDS: HEPARIN DRIP/D5W 100UNITS/ML 250 ML IV SCH (05:03)
--- NOTE | 2024-02-22 05:49 | DVH ---
CHEST RADIOGRAPH Indication:cardiac arrest Technique: Single frontal view of the chest was obtained Comparison: XY CHEST XRAY 1 VIEW on DOS: 02/21/24 FINDINGS: Lines and Tubes: Endotracheal tube terminates 7.7 cm above the claudio. The enteric tube courses below the left hemidiaphragm and the tip extends outside the field of view. Right PICC terminates in the s uperior vena cava. Left central venous catheter terminates in the superior vena cava. Lungs: Bilateral consolidation similar to prior study. Pleura: No effusion. No pneumothorax. Cardiomediastinal contours: Unremarkable Bones: No acute osseous abnormality. IMPRESSION: 1. Support lines and tubes as described. 2. Bilateral consolidation similar to prior study.
[2024-02-22 06:19] LABS: Base Excess 4.3 mmol/L (-2.0-3.0)
--- NOTE | 2024-02-22 11:18 | DVH ---
Carotid Duplex Date: 02/22/2024 10:15 AM Clinical History: stenosis Comparison: None Technique: Duplex Doppler evaluation of the extracranial carotid and vertebral arteries including color Doppler and spectral/pulsed waveform analysis was performed. Findings: RIGHT SIDE: The peak systolic velocities are 65 cm/s in the distal CCA and 49 cm/s in the proximal ICA.The ICA/CC A ratio is less than 1. The external carotid artery is patent with peak systolic velocity of 89 cm/s proximally. There is appropriate antegrade flow in the right vertebral artery. LEFT SIDE: The left carotid system is not visualized due to overlying bandage material. IMPRESSION: 1. No hemodynamically significant stenosis noted in the right carotid system. 2. Nonvisualized left carotid system due to overlying bandage material. 3. Reference:Radiology 2003; [id number] HS:Y
--- NOTE | 2024-02-22 11:49 | DVH ---
ULTRASOUND OF SCROTUM AND CONTENTS. INDICATION: Scrotal edema. COMPARISON: None TECHNIQUE: Multiple real-time grayscale sonographic and color and duplex Doppler images of the scrotu m and its contents were obtained. FINDINGS: The right testicle measures 3.3 x 2.3 x 3. cm. The left testicle measures 4.2 x 3.1 x 3.4 cm. There is testicular microlithiasis versus vascular autumn cifications. Both testicles demonstrate homogeneous echotexture without evidence of focal lesions. The right epididymal head measures 1.5 cm. The left epididymal head measures 2.1 cm. There is a left epididymal cyst measuring 1.2 cm. Subsequent color and duplex Doppler interrogation of the testes demonstrated symmetric normal vascula r flow to both testicles. Diffuse scrotal wall edema. IMPRESSION: 1. Diffuse nonspecific scrotal wall edema.
[2024-02-22 11:52] LABS: INR 1.17 (0.9-1.15); Partial Thromboplastin Time 63.2 SEC (24.5-34.5); Prothrombin Time 12.3 sec (9.3-11.8)
--- NOTE | 2024-02-22 14:32 | DVHPN2 ---
Progress Note - Dictate Date Seen: Feb 22, 2024 Medical Necessity Reason Pt with a Central, PICC or Fol: Yes The following are medically ne: Central Line, Barfield Catheter Reason for barfield catheter: Bladder Retention/Obstruc, Strict I&O Subjective remains intubated vital signs Vital Sign Date Time Temp Pulse Resp B/P (MAP) Pulse Ox O2 Delivery O2 Flow Rate FiO2 02/22/24 14:14 76 20 114/61 (78) 93 30 02/22/24 12:00 98.1 208.6 02/22/24 12:00 Mechanical Ventilator+ Total Intake and Output 02/21/24 02/21/24 02/22/24 15:00 23:00 07:00 Intake Total 637.064 ml 715.672 ml 847.004 ml Output Total 775 ml 1200 ml Balance 637.064 ml -59.328 ml -352.996 ml medications Current Medications Medications Dose Ordered Sig/Kishan Route Start Time Stop Time Status Last Admin Dose Admin Propofol 100 ml @ 2.7 mls/hr Q24H IV 02/19/24 14:45 02/19/24 14:45 2.7 MLS/HR Midazolam HCl 50 ml @ 1 mls/hr Q24H IV 02/19/24 17:15 02/22/24 10:55 14 MLS/HR Ondansetron HCl 4 mg Q4HP PRN IV 02/19/24 19:00 Enoxaparin Sodium 40 mg BID SC 02/19/24 22:00 UNV Nitroglycerin 0.4 mg Q5MINP PRN SL 02/19/24 19:00 Morphine Sulfate 2 mg Q30M PRN IV 02/19/24 19:00 Cefepime HCl 50 ml @ 12.5 mls/hr DAILY IV 02/20/24 10:00 UNV Phenylephrine HCl 250 ml @ 30 mls/hr Q8H20M IV 02/19/24 19:45 UNV Vasopressin 20 units/Sodium Chloride 100 ml @ 9 mls/hr Q11H7M IV 02/19/24 19:45 02/19/24 19:45 9 MLS/HR Phenylephrine HCl 80 mg/Sodium Chloride 250 ml @ 7.5 mls/hr Q24H IV 02/19/24 21:15 02/19/24 23:17 16.875 MLS/HR Norepinephrine Bitartrate 32 mg/ Sodium Chloride 250 ml @ 0.938 mls/ hr Q24H IV 02/19/24 21:15 02/21/24 17:08 0.938 MLS/HR Fentanyl Citrate 250 ml @ 2.5 mls/hr Q24H IV 02/19/24 22:30 02/22/24 04:24 22.5 MLS/HR Dextrose 50 ml UD PRN IV 02/20/24 00:15 Cancel Calcium Gluconate/ Sodium Chloride 50 ml @ 100 mls/hr Q30M IV 02/20/24 08:15 02/20/24 09:14 Cancel Vancomycin HCl 0 ml @ 0 mls/hr UD IV 02/20/24 08:15 Pantoprazole Sodium 40 mg DAILY IV 02/20/24 10:00 02/22/24 09:52 40 MG Meropenem 50 ml @ 17 mls/hr Q12HR IV 02/20/24 10:00 02/22/24 09:54 17 MLS/HR Diagnostic Test (Pha) 1 strip IQ4HR 02/20/24 16:00 02/22/24 11:47 1 STRIP Insulin Human Regular IQ4HR SC 02/20/24 16:00 02/21/24 12:23 2 UNITS Dextrose 50 ml UD PRN IV 02/20/24 15:15 Enteral Nutritional Formula 1,000 ml 40ML/HR NG 02/20/24 15:15 Furosemide 40 mg BIDD IV 02/21/24 18:00 02/22/24 05:46 40 MG Amiodarone HCl 200 mg Q12HR PO 02/21/24 22:00 Heparin Sodium/ Dextrose 250 ml @ 13 mls/hr [id number] IV 02/22/24 05:00 02/22/24 05:03 13 MLS/HR objective Middle-aged male Intubated Sedated Not on pressors Abdomen is soft No murmur Mild crackles at the bases Scrotal edema laboratory and microbiology Laboratory Tests 02/22/24 03:13 Test 02/22/24 03:13 Range/Units Serum Glucose 125 H 74-106 mg/dL Assessment/Plan Acute kidney injury superimposed Chronic Kidney Disease 4/ 5 secondary hemodynamic mediated Acute respiratory failure, intubated on ventilator Septic shock Obstructive uropathy Bilateral nephrolithiasis Right nephrostomy tube Congestive heart failure exacerbation Bilateral pneumonia Diabetes mellitus type 2 Hyperglycemia Anemia of chronic kidney disease hypervolemic despite UOP , BUN rising. I recommend dialysis today IV antibiotics Urology consult We will continue to follow good uop Dietary Evaluation Review Comments: 1) If GI is accessible consider Glucerna 1.2 @ 75 ml/hr goal rate as tolerated 2) If pt remains NPO >7 days consider TPN to meet at least 75% of estimated needs 3) Advance pt diet when medically feasible to a Renal Specific K2,Low Phos,SAM,2gmNa,80gPro diet (if not receiving dialysis) 4) Continue current plan of care Expected Outcomes/Goals: 1) Pt to receive adequate nutrition support within 7 days of NPO status 2) Pt diet to advance 3) Pt labs to improve 4) F/U in 2-3 days Plan discussed with: Other KALYAN FRAZIER MD Feb 22, 2024 14:32
[2024-02-22] MEDS ORDERED: ALBUMIN 25% 100 ML IV PRN (15:00)
--- NOTE | 2024-02-22 15:05 | DVHPNRES ---
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 Patient was brought to the hospital via EMS for worsening shortness of breath for past few days as per mother. As per mother patient was complaining having difficulty breathing which was progressively worsening that prompted her to call EMS.. Initially patient was on CPAP on arrival to EMS however patient was intubated in emergency department. After intubation patient blood pressure progressively worsening and patient had cardiac arrest with pea . Code blue was called, down time was 11 minutes and ROSC was achieved after 11 minutes of code blue. PSH: None as per mother. Home meds: Metoprolol succinate 50 mg daily, Eliquis 5 mg p.o. b.i.d., sevelamer carbonate 800 mg p.o. t.i.d., sodium bicarbonate 650 mg p.o. q.i.d., tamsulosin 0.4 mg p.o. q.a.m.,Amlodipine 10 mg p.o. daily. Social history: NAD Family history: NAD ROS: Review of systems not obtained as patient is intubated. Patient seen and examined in ICU. Off levophed, tolerating feeding. No new night events. Objective vital signs Vital Sign Date Time Temp Pulse Resp B/P (MAP) Pulse Ox O2 Delivery O2 Flow Rate FiO2 02/22/24 14:45 98.8 74 20 107/67 (80) 95 209.8 117/62 (80) 02/22/24 14:14 30 02/22/24 14:00 Mechanical Ventilator+ Total Intake and Output 02/21/24 02/21/24 02/22/24 15:00 23:00 07:00 Intake Total 637.064 ml 715.672 ml 847.004 ml Output Total 775 ml 1200 ml Balance 637.064 ml -59.328 ml -352.996 ml medications Current Medications Medications Dose Ordered Sig/Kishan Route Start Time Stop Time Status Last Admin Dose Admin Propofol 100 ml @ 2.7 mls/hr Q24H IV 02/19/24 14:45 02/19/24 14:45 2.7 MLS/HR Midazolam HCl 50 ml @ 1 mls/hr Q24H IV 02/19/24 17:15 02/22/24 14:40 14 MLS/HR Ondansetron HCl 4 mg Q4HP PRN IV 02/19/24 19:00 Enoxaparin Sodium 40 mg BID SC 02/19/24 22:00 UNV Nitroglycerin 0.4 mg Q5MINP PRN SL 02/19/24 19:00 Morphine Sulfate 2 mg Q30M PRN IV 02/19/24 19:00 Cefepime HCl 50 ml @ 12.5 mls/hr DAILY IV 02/20/24 10:00 UNV Phenylephrine HCl 250 ml @ 30 mls/hr Q8H20M IV 02/19/24 19:45 UNV Vasopressin 20 units/Sodium Chloride 100 ml @ 9 mls/hr Q11H7M IV 02/19/24 19:45 02/19/24 19:45 9 MLS/HR Phenylephrine HCl 80 mg/Sodium Chloride 250 ml @ 7.5 mls/hr Q24H IV 02/19/24 21:15 02/19/24 23:17 16.875 MLS/HR Norepinephrine Bitartrate 32 mg/ Sodium Chloride 250 ml @ 0.938 mls/ hr Q24H IV 02/19/24 21:15 02/21/24 17:08 0.938 MLS/HR Fentanyl Citrate 250 ml @ 2.5 mls/hr Q24H IV 02/19/24 22:30 02/22/24 14:42 20 MLS/HR Dextrose 50 ml UD PRN IV 02/20/24 00:15 Cancel Calcium Gluconate/ Sodium Chloride 50 ml @ 100 mls/hr Q30M IV 02/20/24 08:15 02/20/24 09:14 Cancel Vancomycin HCl 0 ml @ 0 mls/hr UD IV 02/20/24 08:15 Pantoprazole Sodium 40 mg DAILY IV 02/20/24 10:00 02/22/24 09:52 40 MG Meropenem 50 ml @ 17 mls/hr Q12HR IV 02/20/24 10:00 02/22/24 09:54 17 MLS/HR Diagnostic Test (Pha) 1 strip IQ4HR 02/20/24 16:00 02/22/24 11:47 1 STRIP Insulin Human Regular IQ4HR SC 02/20/24 16:00 02/21/24 12:23 2 UNITS Dextrose 50 ml UD PRN IV 02/20/24 15:15 Enteral Nutritional Formula 1,000 ml 40ML/HR NG 02/20/24 15:15 Furosemide 40 mg BIDD IV 02/21/24 18:00 02/22/24 05:46 40 MG Amiodarone HCl 200 mg Q12HR PO 02/21/24 22:00 Heparin Sodium/ Dextrose 250 ml @ 13 mls/hr [id number] IV 02/22/24 05:00 02/22/24 05:03 13 MLS/HR Examination General Appearance: Sedated on mechanical ventilation. Head Exam: Normal inspection Neck Exam: Normal inspection. Non-tender. Normal alignment Pulmonary/Respiratory: Chest non-tender. Bilateral lungs crackles. Cardiovascular/Chest: Regular rate and rhythm. No murmurs. No JVD. Peripheral Pulses: 2+ Radial (R). 2+ Radial (L). 2+ Pedal (R). 2+ Pedal (L) Abdominal Exam: Normal bowel sounds. Soft. Nontender. No hepatospenomegaly. No masses Ankle Exam: Negative ankle edema Lower extremities: Negative lower extremity edema, Positive scrotal swelling Neuro/Mental Status: Sedated, RASS -3 laboratory and microbiology Laboratory Tests 02/22/24 03:13 Test 02/22/24 03:13 Range/Units Serum Glucose 125 H 74-106 mg/dL Microbiology Date/Time Source Procedure Growth Status 02/20/24 18:02 Urine - Catheterized Urine Culture - Final Complete 02/19/24 22:00 Nose MRSA Screen - Final Complete 02/19/24 17:40 Blood Blood Culture - Preliminary NO GROWTH AFTER 48 HOURS OF INCUBATION. Resulted 02/19/24 14:46 Sputum Gram Stain - Final Complete 02/19/24 14:46 Sputum Respiratory Culture - Final Complete Problem List/Assessment/Plan Problem List/Assessment/Plan NEUROLOGY Subacute versus chronic stroke -CT head(03/21/24):Small lower density in the anterior inferior left frontal lobe and in the anterior aspect of the left internal capsule which may be age- indeterminate or subacute to chronic infarcts. -neurology consultation -pending MRI and results of EEG. Sedated on mechanical ventilation -on Versed 50 mg/hour, fentanyl 225 mg/hour CARDIOVASCULAR Cardiac arrest SP ROSC -Coded on 02/19/24. Downtime 11 mintues. Septic shock due to Gram-positive/Gram-negative pneumonia, -Off vasopressor now. -IV Lasix 40 mg -IV antibiotic with meropenem and vancomycin -pending culture including respiratory culture, blood culture, urine culture -Discontinue steroids given hemodynamic stability with one pressor. -CT chest(03/21/24):CT scan of chest and abdomen:1. CHF/volume overload with mild cardiomegaly, small to moderate bilateral pleural effusions, interstitial pulmonary edema, diffuse body wall edema and mild ascites. 2. Patchy and confluent airspace consolidations in all 5 lobes which could reflect multifocal pneumonia and/or pulmonary edema. 3. Endotracheal , gastric tubes, and right IJ central venous catheter are in place as described. 4. Right posterior approach percutaneous nephrostomy tube in place. No hydronephrosis in either kidney. 5. Bilateral urothelial thickening and diffuse bladder wall thickening. Correlate with urinalysis for ascending infection and cystitis, respectively. 6. Nonobstructing bilateral renal calculi. 7. Moderate retained stool in the colon. NSTEMI type 2 likely due to above -continue current management of septic shock -cardiology: No origin coronary Angiography needed at this point -EKG: Sinus tachycardia with no ST elevation. Acute on chronic HFrEF( EF 30%) -ECHo(02/20):Severely reduced left ventricular systolic function with estimated ejection fraction 15% in a global fashion. -BNP(02/19/24):2390 -underwent dialysis(02/20/24): 2.7 L removed -Continue IV lasix 40 mg BID lactic acidosis due to septic shock:Resolved Afib with RVR -Heparin drip -Amiodarone 200 mg BID via GT tube. RESPIRATORY Acute hypoxic respiratory failure due to pneumonia -on ventilator: Volume control, respiratory rate 20, FiO2 400, FiO2 40%, peep 6: Titrating down PEEP slowly. -pending respiratory culture -continue current management of septic shock -Off levo Pulmonary edema -Repeat Chest xray in AM /KIDNEY YOMI due to VMN in setting of septic shock and CHF -Dialysis(02/20/24): 2.7 L removed -Continue monitor I/O -Nephrology on board: decided to do dialysis yesterday -Inserted Left IJ Sravan catheter. ? Acute cystitis -follow with urinalysis and culture. -Continue antibiotics with meropenam and vancomycin Nonobstructing bilateral renal calculi with Right nephrostomy -Underwent bilateral nephrostomy ,currently has right nephrostomy tube. -nephrostomy tube patent Hyperkalemia; resolved GI Mild ascitis -Continue monitor Constipation -PRN lactulose ENDO Uncontrolled diabetes mellitus type 2, HGB A1c 7.4 -initially patient was on insulin drip, discontinued given lower trend of glucose -moderate insulin sliding scale Hypocalcemia and hyperphosphatemia -continue with dialysis. LINES Right IJ (02/19/24) Left IJ Sravan cath(02/20/24) [place] (02/19/24) Barfield GT tube NUTRITION Nepro: 10 ml per hour, Target 40 ml/hr DVT Prophylaxis: heparin PUD prophylaxis: protonix. Code status discussed with mother greater than 22 minutes full code. Critical care time > 80 minutes Plan discussed with Dr Richard Plan discussed with: Other My Orders My Orders Orders - FLORINA DE RESIDENT Procedure Category Date Status Time Amiodarone Tablet PHA 02/21/24 In Process (Cordarone Tablet) 22:00 Ventilator Orders RT 02/21/24 Transmitted 08:00 Abg W/ Co-Ox RT 02/22/24 Logged 05:25 Carotid Duplx W Color US 02/22/24 Resulted DOP 08:59 Testicular Ultrasound US 02/22/24 Resulted 08:59 Dietary Evaluation Review Comments: 1) If GI is accessible consider Glucerna 1.2 @ 75 ml/hr goal rate as tolerated 2) If pt remains NPO >7 days consider TPN to meet at least 75% of estimated needs 3) Advance pt diet when medically feasible to a Renal Specific K2,Low Phos,SAM,2gmNa,80gPro diet (if not receiving dialysis) 4) Continue current plan of care Expected Outcomes/Goals: 1) Pt to receive adequate nutrition support within 7 days of NPO status 2) Pt diet to advance 3) Pt labs to improve 4) F/U in 2-3 days Date of Service: Feb 22, 2024 Billing Provider: CHELSEA RICHARD MD Common Visit Codes: 53610-[id number] CARE 30-74 MIN FLORINA DE RESIDENT Feb 22, 2024 15:05 CHELSEA RICHARD MD Feb 29, 2024 17:12
[2024-02-22] MEDS: FUROSEMIDE 40 MG/4 ML VIAL IV ONE (15:11)
--- NOTE | 2024-02-22 15:31 | DVHPNRES ---
Progress Note Date Seen: Feb 22, 2024 Resident Creating Document: SHAKIRA STOCKTON Medical Necessity Reason Pt with a Central, PICC or Fol: Yes The following are medically ne: Central Line, Barfield Catheter Reason for barfield catheter: Bladder Retention/Obstruc, Strict I&O Subjective Review of Systems David Gilmore is a 52-year-old male presents to ER via EMS due to progressive dyspnea from functional class II to functional class IV which occurred previous 24 hours, per EMR patient was with mother was having difficulty sleeping and dyspnea got worse in the morning prompting his visit to the ER via EMS. Patient was intubated shortly after arrival to ER. Patient was diagnosed with septic shock secondary to multifocal pneumonia, complicated with cardiac arrest (pulseless electrical activity) currently status post ROSC. Cardiology was consulted for elevated troponin. Could not obtain review of systems due to patient's clinical status. Past medical history: Diabetes, hypertension, chronic kidney disease secondary to obstructive uropathy status post nephrostomy tube placement, paroxysmal atrial fibrillation (chads Vasc 3/ has bled 2), HFrEF (last echocardiogram done in 02/14/2024 LVEF 30%, grade 2 diastolic dysfunction, RVSP 47 mmHg, severe MR, [id number] TR), noncompliance Surgical history: Nephrostomy tube placement Family history: Noncontributory Social history: Could not obtain Allergies: Ampicillin, sulbactam Home medication: Amiodarone 200 mg p.o. b.i.d., amlodipine 10 mg p.o. daily, apixaban 5 mg p.o. b.i.d., carvedilol 3.125 mg p.o. b.i.d., finasteride 5 mg p.o. daily, sevelamer 800 mg p.o. t.i.d., sodium bicarbonate 650 mg p.o. q.i.d., tamsulosin 0.4 mg p.o. daily Patient seen and examined at bedside. Currently patient with sedation and analgesia due to mechanical assisted ventilation. Could not obtain review of systems. Objective vital signs Vital Sign Date Time Temp Pulse Resp B/P (MAP) Pulse Ox O2 Delivery O2 Flow Rate FiO2 02/22/24 15:16 77 20 118/64 (82) 96 30 02/22/24 14:45 98.8 209.8 02/22/24 14:00 Mechanical Ventilator+ Total Intake and Output 02/21/24 02/21/24 02/22/24 15:00 23:00 07:00 Intake Total 637.064 ml 715.672 ml 847.004 ml Output Total 775 ml 1200 ml Balance 637.064 ml -59.328 ml -352.996 ml medications Current Medications Medications Dose Ordered Sig/Kishan Route Start Time Stop Time Status Last Admin Dose Admin Propofol 100 ml @ 2.7 mls/hr Q24H IV 02/19/24 14:45 02/19/24 14:45 2.7 MLS/HR Midazolam HCl 50 ml @ 1 mls/hr Q24H IV 02/19/24 17:15 02/22/24 14:40 14 MLS/HR Ondansetron HCl 4 mg Q4HP PRN IV 02/19/24 19:00 Enoxaparin Sodium 40 mg BID SC 02/19/24 22:00 UNV Nitroglycerin 0.4 mg Q5MINP PRN SL 02/19/24 19:00 Morphine Sulfate 2 mg Q30M PRN IV 02/19/24 19:00 Cefepime HCl 50 ml @ 12.5 mls/hr DAILY IV 02/20/24 10:00 UNV Phenylephrine HCl 250 ml @ 30 mls/hr Q8H20M IV 02/19/24 19:45 UNV Vasopressin 20 units/Sodium Chloride 100 ml @ 9 mls/hr Q11H7M IV 02/19/24 19:45 02/19/24 19:45 9 MLS/HR Phenylephrine HCl 80 mg/Sodium Chloride 250 ml @ 7.5 mls/hr Q24H IV 02/19/24 21:15 02/19/24 23:17 16.875 MLS/HR Norepinephrine Bitartrate 32 mg/ Sodium Chloride 250 ml @ 0.938 mls/ hr Q24H IV 02/19/24 21:15 02/21/24 17:08 0.938 MLS/HR Fentanyl Citrate 250 ml @ 2.5 mls/hr Q24H IV 02/19/24 22:30 02/22/24 14:42 20 MLS/HR Dextrose 50 ml UD PRN IV 02/20/24 00:15 Cancel Calcium Gluconate/ Sodium Chloride 50 ml @ 100 mls/hr Q30M IV 02/20/24 08:15 02/20/24 09:14 Cancel Vancomycin HCl 0 ml @ 0 mls/hr UD IV 02/20/24 08:15 Pantoprazole Sodium 40 mg DAILY IV 02/20/24 10:00 02/22/24 09:52 40 MG Meropenem 50 ml @ 17 mls/hr Q12HR IV 02/20/24 10:00 02/22/24 09:54 17 MLS/HR Diagnostic Test (Pha) 1 strip IQ4HR 02/20/24 16:00 02/22/24 11:47 1 STRIP Insulin Human Regular IQ4HR SC 02/20/24 16:00 02/21/24 12:23 2 UNITS Dextrose 50 ml UD PRN IV 02/20/24 15:15 Enteral Nutritional Formula 1,000 ml 40ML/HR NG 02/20/24 15:15 Furosemide 40 mg BIDD IV 02/21/24 18:00 02/22/24 05:46 40 MG Amiodarone HCl 200 mg Q12HR PO 02/21/24 22:00 Heparin Sodium/ Dextrose 250 ml @ 13 mls/hr [id number] IV 02/22/24 05:00 02/22/24 05:03 13 MLS/HR Albumin Human 100 ml @ 100 mls/hr CELSO PRN IV 02/22/24 15:00 02/23/24 05:00 Examination Patient lying in bed, under sedoanalgesia due to mechanical ventilation General: RASS -3, afebrile, mucosae are moist Cardiovascular: Normal S1 and S2. No murmurs, gallops or rubs Respiratory: Mechanically assisted ventilation, equal bilateral airway entree. Bibasilar rales, rest of lung auscultation is clear Abdomen: Soft, nontender, no organomegaly, normal bowel sounds MSK/skin: Mobilization of limbs cannot be evaluated. Skin is dry and warm Neurological: Orientation cannot be assessed. No apparent motor no sensitive deficits. Pupils are asymmetric (right pupil is larger than left pupil), nonreactive laboratory and microbiology Laboratory Tests 02/22/24 03:13 Test 02/22/24 03:13 Range/Units Serum Glucose 125 H 74-106 mg/dL Microbiology Date/Time Source Procedure Growth Status 02/20/24 18:02 Urine - Catheterized Urine Culture - Final Complete 02/19/24 22:00 Nose MRSA Screen - Final Complete 02/19/24 17:40 Blood Blood Culture - Preliminary NO GROWTH AFTER 48 HOURS OF INCUBATION. Resulted 02/19/24 14:46 Sputum Gram Stain - Final Complete 02/19/24 14:46 Sputum Respiratory Culture - Final Complete Problem List/Assessment/Plan Problem List/Assessment/Plan Assessment Cardiac arrest (pulseless electrical activity) status post ROSC NSTEMI probable type 2 Acute on chronic systolic congestive heart failure (HFrEF, LVEF 30%) Paroxysmal atrial fibrillation (chads Vasc 3/has bled 2) secondary hypercoagulability state - currently in AFib RVR Severe MR Acute respiratory failure secondary to multifocal pneumonia ARDS Septic shock Acute kidney injury hemodynamically mediated on CKD - on hemodialysis Metabolic acidosis - resolved Diabetes Plan/Recommendation Elevated troponin likely secondary to septic shock due to multifocal pneumonia and chronic disease. EKG on admission shows sinus tachycardia with no ST elevation. No need for urgent coronary angiography at this time. Optimize loading conditions, patient currently on low dose of vasopressors IV antibiotics per hospitalist Indicated IV amiodarone maintenance, continue with heparin and we will evaluate initiating apixaban. Echocardiogram post cardiac arrest: Dvdy-[id number]-tkwoznfthx concentric LVH, LVEF 15%, moderately dilated RV, RVSP 27 mmHg, moderate MR, ycrk-ri-[id number] AR, moderate TR, no pericardial effusion Completing new head CT which showed no acute intracranial pathology, recommend evaluate and neurological state off of sedation. Eventual EEG patient is off sedation as well. Drips Norepinephrine 2 Versed 15 Fentanyl 225 Amiodarone from IV to PO Heparin drip Discussed plan with Dr. Mcdowell, and nurses: Continue treatment for septic shock secondary to multifocal pneumonia at this point, urgent need for coronary angiography at this time. New echocardiogram shows decrease in LVEF from 30- 15%. Patient has poor prognosis Patient is hemodynamically improving, requires hemodialysis, currently in sinus rhythm with amiodarone p.o. and with heparin drip. No cardiological intervention at this moment, recommend treating underlying cause pathology and evaluated neurological status. Cardiology will sign off case. Please reconsult if needed, thank you. Plan discussed with: Patient, Spouse, Other (Nurses) Dietary Evaluation Review Comments: 1) If GI is accessible consider Glucerna 1.2 @ 75 ml/hr goal rate as tolerated 2) If pt remains NPO >7 days consider TPN to meet at least 75% of estimated needs 3) Advance pt diet when medically feasible to a Renal Specific K2,Low Phos,SAM,2gmNa,80gPro diet (if not receiving dialysis) 4) Continue current plan of care Expected Outcomes/Goals: 1) Pt to receive adequate nutrition support within 7 days of NPO status 2) Pt diet to advance 3) Pt labs to improve 4) F/U in 2-3 days Visit Coding Cardiology RES Date of Service: Feb 22, 2024 Billing Provider: MARY LOU MCDOWELL MD, MELISA RESIDENT Feb 22, 2024 15:31
[2024-02-22 15:33] LABS: Base Excess 1.4 mmol/L (-2.0-3.0)
[2024-02-22 16:38] LABS: Base Excess 2.5 mmol/L (-2.0-3.0)
[2024-02-22 17:27] LABS: % Iron Saturation 4.1 % (20-55)
[2024-02-22 17:29] LABS: INR 1.13 (0.9-1.15); Partial Thromboplastin Time 55.2 SEC (24.5-34.5); Prothrombin Time 11.9 sec (9.3-11.8)
--- NOTE | 2024-02-22 19:40 | DVHPN2 ---
Progress Note - Dictate Date Seen: Feb 22, 2024 Medical Necessity Reason Pt with a Central, PICC or Fol: Yes The following are medically ne: Central Line, Barfield Catheter Reason for barfield catheter: Bladder Retention/Obstruc, Strict I&O Subjective Mr. Gilmore is a 40 years old left-handed gentleman with a history of hypertension, diabetes, congestive heart failure, chronic kidney disease, the patient was brought to the [facility] on 02/19/2024 with a chief company of shortness breath, his CT brain scan showed evidence suggestive a stroke, I have seen and examined the patient, I discussed with his nurse, he is going through hemodialysis. he is intubated, sedated, he responds to light touch The pupils small, 2 mm, symmetric Fentanyl 200 mcg/hour, Versed 14 mg/hour Blood culture, 02/19/2024: UDS, 02/19/2024: Negative ABG, 02/19/2024: metabolic and respiratory acidosis, 02/20/2024: Metabolic acidosis WBC/HB/PLT/MCV, 02/20/24: 25.1/10.2/418/90.8 PT/INR/PTT, 02/22/2024: 11.9/1.13/55.2 BUN/CR, 02/19/2024: 74/5.35 GFR, 02/19/2024: 12 HGB A1c, 02/10/2024: 76 Glucose, 02/20/2024: 469, 468, 475, 437 Lactic acid, 02/19/2024: 4.2, three, two TBI/AST/ALT/AP, 02/20/2024: 0.5/46/59/163 Troponin one high sensitivity, 02/19/2024: 238, 652, 1010, 06/22/2023: 1886 Beta h hydroxybutyric acid, 02/20/2024: 0.116 TG/HDL/LDL/HDL, 01/2024, 125/193/121/52 EEG : Remarkably abnormal EEG Carotid Doppler, 02/22/2024: 1. No hemodynamically significant stenosis noted in the right carotid system. 2. Nonvisualized left carotid system due to overlying bandage material Chest, 02/19/2024: Bilateral pleural effusions CT head, 02/19/2024: 1. No acute intracranial hemorrhage or mass effect. 2. Mild nonspecific white matter disease which may be related to chronic small-vessel ischemia. 3. Small lower density in the anterior inferior left frontal lobe and in the anterior aspect of the left internal capsule which may be age- indeterminate or subacute to chronic infarcts. 4. Partially imaged dental caries and periapical lucencies in maxillary teeth CT head 02/21/2024: No acute intracranial abnormality. No significant interval change. vital signs Vital Sign Date Time Temp Pulse Resp B/P (MAP) Pulse Ox O2 Delivery O2 Flow Rate FiO2 02/22/24 18:48 115/60 02/22/24 18:30 98.1 69 20 96 208.6 02/22/24 18:28 30 02/22/24 18:00 Mechanical Ventilator+ Total Intake and Output 02/21/24 02/21/24 02/22/24 15:00 23:00 07:00 Intake Total 637.064 ml 715.672 ml 847.004 ml Output Total 775 ml 1200 ml Balance 637.064 ml -59.328 ml -352.996 ml medications Current Medications Medications Dose Ordered Sig/Kishan Route Start Time Stop Time Status Last Admin Dose Admin Propofol 100 ml @ 2.7 mls/hr Q24H IV 02/19/24 14:45 02/19/24 14:45 2.7 MLS/HR Midazolam HCl 50 ml @ 1 mls/hr Q24H IV 02/19/24 17:15 02/22/24 18:48 14 MLS/HR Ondansetron HCl 4 mg Q4HP PRN IV 02/19/24 19:00 Enoxaparin Sodium 40 mg BID SC 02/19/24 22:00 UNV Nitroglycerin 0.4 mg Q5MINP PRN SL 02/19/24 19:00 Morphine Sulfate 2 mg Q30M PRN IV 02/19/24 19:00 Cefepime HCl 50 ml @ 12.5 mls/hr DAILY IV 02/20/24 10:00 UNV Phenylephrine HCl 250 ml @ 30 mls/hr Q8H20M IV 02/19/24 19:45 UNV Vasopressin 20 units/Sodium Chloride 100 ml @ 9 mls/hr Q11H7M IV 02/19/24 19:45 02/19/24 19:45 9 MLS/HR Phenylephrine HCl 80 mg/Sodium Chloride 250 ml @ 7.5 mls/hr Q24H IV 02/19/24 21:15 02/19/24 23:17 16.875 MLS/HR Norepinephrine Bitartrate 32 mg/ Sodium Chloride 250 ml @ 0.938 mls/ hr Q24H IV 02/19/24 21:15 02/21/24 17:08 0.938 MLS/HR Fentanyl Citrate 250 ml @ 2.5 mls/hr Q24H IV 02/19/24 22:30 02/22/24 14:42 20 MLS/HR Dextrose 50 ml UD PRN IV 02/20/24 00:15 Cancel Calcium Gluconate/ Sodium Chloride 50 ml @ 100 mls/hr Q30M IV 02/20/24 08:15 02/20/24 09:14 Cancel Vancomycin HCl 0 ml @ 0 mls/hr UD IV 02/20/24 08:15 Pantoprazole Sodium 40 mg DAILY IV 02/20/24 10:00 02/22/24 09:52 40 MG Meropenem 50 ml @ 17 mls/hr Q12HR IV 02/20/24 10:00 02/22/24 09:54 17 MLS/HR Diagnostic Test (Pha) 1 strip IQ4HR 02/20/24 16:00 02/22/24 16:49 1 STRIP Insulin Human Regular IQ4HR SC 02/20/24 16:00 02/21/24 12:23 2 UNITS Dextrose 50 ml UD PRN IV 02/20/24 15:15 Enteral Nutritional Formula 1,000 ml 40ML/HR NG 02/20/24 15:15 Furosemide 40 mg BIDD IV 02/21/24 18:00 02/22/24 05:46 40 MG Amiodarone HCl 200 mg Q12HR PO 02/21/24 22:00 Heparin Sodium/ Dextrose 250 ml @ 13 mls/hr [id number] IV 02/22/24 05:00 02/22/24 18:44 13 MLS/HR Albumin Human 100 ml @ 100 mls/hr CELSO PRN IV 02/22/24 15:00 02/23/24 05:00 objective The patient is well-nourished and well-developed with no distress. The patient is intubated MENTAL STATUS: Subjective CRANIAL NERVES: Pupils are round, and slightly reactive. There are corneal reflexes and doll's eyes phenomenon. No signs of facial weakness. There are gagging or coughing reflexes SENSATION: No responses to pain stimuli. MOTOR: Normal tone in the upper and lower extremity. Normal muscle bulk. No fasciculations. No spontaneous movement. REFLEXES: Deep tendon reflexes are symmetrical. No pathological reflexes. CEREBELLAR/COORDINATION: Deferred GAIT/STATION: deferred. laboratory and microbiology Laboratory Tests 02/22/24 03:13 Test 02/22/24 03:13 Range/Units Serum Glucose 125 H 74-106 mg/dL Problem List Abnormal CT brain scan, to rule out stroke Coma Metabolic encephalopathy Hypoxic encephalopathy Toxic encephalopathy Cardiopulmonary arrest Acute respiratory failure Metabolic acidosis Respiratory acidosis Leukocytosis to rule out sepsis Shock liver Chronic kidney failure Paroxysmal AFib RVR Anisocoria, uncertain clinical significance Assessment/Plan Monitoring Supportive treatment Follow-up lab ICU care Respiratory support/vent management Stabilize vitals Oxygen Heparin drip GI prophylaxis More recommendation per clinical course This medical document was created using an electronic medical record system with [employer] dictation system. Although this document has been carefully reviewed, there may still be some phonetic and typographical errors. These areas are purely typographical due to imperfections of the software programs, and do not reflect any compromise in the patient's medical care Prognosis Guarded Dietary Evaluation Review Comments: 1) If GI is accessible consider Glucerna 1.2 @ 75 ml/hr goal rate as tolerated 2) If pt remains NPO >7 days consider TPN to meet at least 75% of estimated needs 3) Advance pt diet when medically feasible to a Renal Specific K2,Low Phos,SAM,2gmNa,80gPro diet (if not receiving dialysis) 4) Continue current plan of care Expected Outcomes/Goals: 1) Pt to receive adequate nutrition support within 7 days of NPO status 2) Pt diet to advance 3) Pt labs to improve 4) F/U in 2-3 days Plan discussed with: Other Critical Care Time(min): 30 GUSTAVO AVELAR MD Feb 22, 2024 19:40
--- NOTE | 2024-02-22 20:40 | DVH ---
CHEST RADIOGRAPH Indication:On vent Technique: Single frontal view of the chest was obtained COMPARISON: XY CHEST XRAY 1 VIEW on DOS: 02/22/24, XY CHEST XRAY 1 VIEW on DOS: 02/21/24, XY CHEST PO RTABLE on DOS: 02/20/24, XY CHEST XRAY 1 VIEW on DOS: 02/21/24 FINDINGS: Lines and Tubes: The endotracheal tube terminates cm above claudio. Right and left central venous ca theters are unchanged.4.2 The enteric tube courses below the left hemidiaphragm and the tip projects over the stomach. Lungs: Patchy bilateral consolidation similar to prior study. Pleura: Possible small bilateral pleural effusions. No pneumothorax. Cardiomediastinal contours: Unremarkable Bones: No acute osseous abnormality. IMPRESSION: 1. Unchanged pulmonary edema
[2024-02-22] MEDS: VANCOMYCIN 500 MG in D5W 5% 100 ML IV ONE (21:01)
[2024-02-22] MEDS: EPOETIN ALFA-EPBX 10,000 UNIT/1ML VIAL SC ONE (21:11)
[2024-02-22] MEDS: Nepro With Carb Steady 1 Liter Bottle NG SCH (21:21)
[2024-02-22 23:28] LABS: INR 1.13 (0.9-1.15); Partial Thromboplastin Time 58.7 SEC (24.5-34.5); Prothrombin Time 11.9 sec (9.3-11.8)
[2024-02-23] VITALS (107 sets, daily range): BP systolic 88–139; BP diastolic 50–79; PULSE 57–80; RESP 20; TEMP 98.1–99.3; O2SAT 95–100
[2024-02-23 03:57] LABS: Basophils # (auto) 0 10 ^3/uL (0-0.2); Basophils % (auto) 0.3 % (0.0-2.0); Eosinophils # (auto) 0.2 10 ^3/uL (0-0.8); Eosinophils % (auto) 1.2 % (0.0-7.0); Hematocrit 28.1 % (41.0-53.0); Hemoglobin 9.1 g/dL (13.5-17.5); Lymphocytes # (auto) 1.9 10 ^3/uL (0.4-5.4); Lymphocytes % (auto) 11.4 % (10.0-50.0); Mean Corpuscular Hemoglobin 29.1 pg (28.0-32.0); Mean Corpuscular Hgb Conc. 32.5 g/dL (32.0-36.0); Mean Corpuscular Volume 89.5 fL (80.0-100.0); Monocytes # (auto) 1.4 10 ^3/uL (0-1.3); Monocytes % (auto) 8.5 % (0.0-12.0); Neutrophils # (auto) 13.4 10 ^3/uL (1.6-8.6); Neutrophils % (auto) 78.6 % (37.0-80.0); Nucleated Red Blood Cells % 0.1 %; Platelet Count (auto) 327 10^3/uL (140-450); Red Blood Cells 3.13 10^6/uL (4.5-5.90)
[2024-02-23 04:10] LABS: Chloride 108 mmol/L (98-107); Potassium 3.7 mmol/L (3.5-5.1); Sodium 143 mmol/L (136-145)
[2024-02-23 04:11] LABS: Anion Gap 5 (5-15); Carbon Dioxide 30 mmol/L (20-31)
[2024-02-23 04:16] LABS: BUN/Creatinine Ratio 10.4 (10.0-20.0); Glucose 118 mg/dL (74-106)
[2024-02-23 04:33] LABS: Blood Urea Nitrogen 34 mg/dL (9-23)
--- NOTE | 2024-02-23 05:51 | DVH ---
CHEST RADIOGRAPH Indication:cardiac arrest Technique: Single frontal view of the chest was obtained Comparison: XY CHEST XRAY 1 VIEW on DOS: 02/22/24, XY CHEST XRAY 1 VIEW on DOS: 02/22/24, XY CHEST XR AY 1 VIEW on DOS: 02/21/24, XY CHEST PORTABLE on DOS: 02/20/24, XY CHEST XRAY 1 VIEW on DOS: 02/20/24 , XY CHEST XRAY 1 VIEW on DOS: 02/22/24 FINDINGS: Lines and Tubes: The endotracheal tube terminates cm above claudio. Right and left central venous ca theters are unchanged.4.2 The enteric tube courses below the left hemidiaphragm and the tip projects over the stomach. Lungs: Patchy bilateral consolidation similar to prior study. Pleura: Possible small bilateral pleural effusions. No pneumothorax. Cardiomediastinal contours: Unremarkable Bones: No acute osseous abnormality. IMPRESSION: 1. Unchanged pulmonary edema
[2024-02-23 06:59] LABS: Base Excess 5.2 mmol/L (-2.0-3.0)
[2024-02-23] MEDS: SODIUM CHL 0.9% 1000 ML BAG XX ONE (07:35)
--- NOTE | 2024-02-23 16:43 | DVHPN2 ---
Progress Note - Dictate Date Seen: Feb 23, 2024 Medical Necessity Reason Pt with a Central, PICC or Fol: Yes The following are medically ne: Central Line, Barfield Catheter Reason for barfield catheter: Bladder Retention/Obstruc, Strict I&O Subjective remains intubated s/p HD yesterday UOp noted > 2L scrotal edema slightly better vital signs Vital Sign Date Time Temp Pulse Resp B/P (MAP) Pulse Ox O2 Delivery O2 Flow Rate FiO2 02/23/24 16:00 30 02/23/24 16:00 20 97 Mechanical Ventilator+ 02/23/24 16:00 62 02/23/24 15:51 102/60 (74) 02/23/24 15:15 98.8 209.8 Total Intake and Output 02/22/24 02/22/24 02/23/24 15:00 23:00 07:00 Intake Total 427 ml 937 ml 751 ml Output Total 1700 ml 1925 ml Balance 427 ml -763 ml -1174 ml medications Current Medications Medications Dose Ordered Sig/Kishan Route Start Time Stop Time Status Last Admin Dose Admin Propofol 100 ml @ 2.7 mls/hr Q24H IV 02/19/24 14:45 02/19/24 14:45 2.7 MLS/HR Midazolam HCl 50 ml @ 1 mls/hr Q24H IV 02/19/24 17:15 02/23/24 13:01 14 MLS/HR Ondansetron HCl 4 mg Q4HP PRN IV 02/19/24 19:00 Enoxaparin Sodium 40 mg BID SC 02/19/24 22:00 UNV Nitroglycerin 0.4 mg Q5MINP PRN SL 02/19/24 19:00 Morphine Sulfate 2 mg Q30M PRN IV 02/19/24 19:00 Cefepime HCl 50 ml @ 12.5 mls/hr DAILY IV 02/20/24 10:00 UNV Phenylephrine HCl 250 ml @ 30 mls/hr Q8H20M IV 02/19/24 19:45 UNV Vasopressin 20 units/Sodium Chloride 100 ml @ 9 mls/hr Q11H7M IV 02/19/24 19:45 02/19/24 19:45 9 MLS/HR Phenylephrine HCl 80 mg/Sodium Chloride 250 ml @ 7.5 mls/hr Q24H IV 02/19/24 21:15 02/19/24 23:17 16.875 MLS/HR Norepinephrine Bitartrate 32 mg/ Sodium Chloride 250 ml @ 0.938 mls/ hr Q24H IV 02/19/24 21:15 02/21/24 17:08 0.938 MLS/HR Fentanyl Citrate 250 ml @ 2.5 mls/hr Q24H IV 02/19/24 22:30 02/23/24 15:16 20 MLS/HR Dextrose 50 ml UD PRN IV 02/20/24 00:15 Cancel Calcium Gluconate/ Sodium Chloride 50 ml @ 100 mls/hr Q30M IV 02/20/24 08:15 02/20/24 09:14 Cancel Vancomycin HCl 0 ml @ 0 mls/hr UD IV 02/20/24 08:15 Pantoprazole Sodium 40 mg DAILY IV 02/20/24 10:00 02/23/24 09:34 40 MG Meropenem 50 ml @ 17 mls/hr Q12HR IV 02/20/24 10:00 02/23/24 10:17 17 MLS/HR Diagnostic Test (Pha) 1 strip IQ4HR 02/20/24 16:00 02/23/24 13:00 1 STRIP Insulin Human Regular IQ4HR SC 02/20/24 16:00 02/21/24 12:23 2 UNITS Dextrose 50 ml UD PRN IV 02/20/24 15:15 Enteral Nutritional Formula 1,000 ml 40ML/HR NG 02/20/24 15:15 02/22/24 21:21 1,000 ML Furosemide 40 mg BIDD IV 02/21/24 18:00 02/23/24 09:35 40 MG Amiodarone HCl 200 mg Q12HR PO 02/21/24 22:00 02/22/24 21:10 200 MG Heparin Sodium/ Dextrose 250 ml @ 13 mls/hr [id number] IV 02/22/24 05:00 02/23/24 13:04 13 MLS/HR Vancomycin HCl 500 mg/Dextrose 100 ml @ 200 mls/hr Q24H IV 02/23/24 21:00 objective Middle-aged male Intubated Sedated Not on pressors Abdomen is soft No murmur Mild crackles at the bases Scrotal edema laboratory and microbiology Laboratory Tests 02/23/24 03:25 Test 02/23/24 03:25 Range/Units Serum Glucose 118 H 74-106 mg/dL Assessment/Plan Acute kidney injury superimposed Chronic Kidney Disease 4/ 5 secondary hemodynamic mediated Acute respiratory failure, intubated on ventilator Septic shock Obstructive uropathy Bilateral nephrolithiasis Right nephrostomy tube Congestive heart failure exacerbation Bilateral pneumonia Diabetes mellitus type 2 Hyperglycemia Anemia of chronic kidney disease will eval tomorrow for dialysis needs epogen diuretics to achieve negative balance IV antibiotics Urology consult We will continue to follow good uop Dietary Evaluation Review Comments: 1) If GI is accessible consider Glucerna 1.2 @ 75 ml/hr goal rate as tolerated 2) If pt remains NPO >7 days consider TPN to meet at least 75% of estimated needs 3) Advance pt diet when medically feasible to a Renal Specific K2,Low Phos,SAM,2gmNa,80gPro diet (if not receiving dialysis) 4) Continue current plan of care Expected Outcomes/Goals: 1) Pt to receive adequate nutrition support within 7 days of NPO status 2) Pt diet to advance 3) Pt labs to improve 4) F/U in 2-3 days Plan discussed with: Other (mom) KALYAN FRAZIER MD Feb 23, 2024 16:43
--- NOTE | 2024-02-23 16:59 | DVHPN2 ---
Subjective Mr. Gilmore is a 40 years old left-handed gentleman with a history of hypertension, diabetes, congestive heart failure, chronic kidney disease, the patient was brought to the [facility] on 02/19/2024 with a chief company of shortness breath, his CT brain scan showed evidence suggestive a stroke, I have seen and examined the patient, I discussed with his nurse, he is going through hemodialysis. he is intubated, sedated, he responds to light touch The pupils small, 2 mm, symmetric Changes from previous H/P or p: No Changes Eyes: No Pain, No Vision change, No Conjunctivae inflammation, No Eyelid inflammation, No Other, No Redness ENT: No Ear pain, No Ear discharge, No Nose pain, No Nose discharge, No Nose congestion, No Mouth pain, No Mouth swelling, No Throat pain, No Throat swelling, No Other Cardiovascular: No Chest Pain, No Palpitations, No Orthopnea, No Paroxysmal Noc. Dyspnea, No Edema, No Lt Headedness, No Other Respiratory: No Cough, No Dry; Shortness of breath, SOB with excertion, W heezing; No Hemoptysis, No Pleuritic Pain, No Sputum, No Other Gastrointestinal: No Nausea, No Vomiting, No Abdominal Pain, No Diarrhea, No Constipation, No Melena, No Hematochezia, No Other Genitourinary: No Dysuria, No Frequency, No Incontinence, No Hematuria, No Retention, No Other Musculoskeletal: No other, No neck pain, No shoulder pain, No arm pain, No back pain, No hand pain, No leg pain, No foot pain Skin: No Rash, No Lesions, No Jaundice, No Bruising, No Other Objective Vitals Vital Signs Date Time Temp Pulse Resp B/P (MAP) Pulse Ox O2 Delivery O2 Flow Rate FiO2 02/23/24 16:00 30 02/23/24 16:00 20 97 Mechanical Ventilator+ 02/23/24 16:00 62 02/23/24 15:51 102/60 (74) 02/23/24 15:15 98.8 209.8 Intake/Output Intake and Output 02/23/24 05:00 Intake Total 2232.376 ml Output Total 2900 ml Balance -667.624 ml IV Total 1368.376 ml Tube Feeding 864 ml Output Urine Total 1750 ml Other 1150 ml Medications Current Medications Medications Dose Ordered Sig/Kishan Route Start Time Stop Time Status Last Admin Dose Admin Propofol 100 ml @ 2.7 mls/hr Q24H IV 02/19/24 14:45 02/19/24 14:45 2.7 MLS/HR Midazolam HCl 50 ml @ 1 mls/hr Q24H IV 02/19/24 17:15 02/23/24 13:01 14 MLS/HR Ondansetron HCl 4 mg Q4HP PRN IV 02/19/24 19:00 Enoxaparin Sodium 40 mg BID SC 02/19/24 22:00 UNV Nitroglycerin 0.4 mg Q5MINP PRN SL 02/19/24 19:00 Morphine Sulfate 2 mg Q30M PRN IV 02/19/24 19:00 Cefepime HCl 50 ml @ 12.5 mls/hr DAILY IV 02/20/24 10:00 UNV Phenylephrine HCl 250 ml @ 30 mls/hr Q8H20M IV 02/19/24 19:45 UNV Vasopressin 20 units/Sodium Chloride 100 ml @ 9 mls/hr Q11H7M IV 02/19/24 19:45 02/19/24 19:45 9 MLS/HR Phenylephrine HCl 80 mg/Sodium Chloride 250 ml @ 7.5 mls/hr Q24H IV 02/19/24 21:15 02/19/24 23:17 16.875 MLS/HR Norepinephrine Bitartrate 32 mg/ Sodium Chloride 250 ml @ 0.938 mls/ hr Q24H IV 02/19/24 21:15 02/21/24 17:08 0.938 MLS/HR Fentanyl Citrate 250 ml @ 2.5 mls/hr Q24H IV 02/19/24 22:30 02/23/24 15:16 20 MLS/HR Dextrose 50 ml UD PRN IV 02/20/24 00:15 Cancel Calcium Gluconate/ Sodium Chloride 50 ml @ 100 mls/hr Q30M IV 02/20/24 08:15 02/20/24 09:14 Cancel Vancomycin HCl 0 ml @ 0 mls/hr UD IV 02/20/24 08:15 Pantoprazole Sodium 40 mg DAILY IV 02/20/24 10:00 02/23/24 09:34 40 MG Meropenem 50 ml @ 17 mls/hr Q12HR IV 02/20/24 10:00 02/23/24 10:17 17 MLS/HR Diagnostic Test (Pha) 1 strip IQ4HR 02/20/24 16:00 02/23/24 16:54 1 STRIP Insulin Human Regular IQ4HR SC 02/20/24 16:00 02/21/24 12:23 2 UNITS Dextrose 50 ml UD PRN IV 02/20/24 15:15 Enteral Nutritional Formula 1,000 ml 40ML/HR NG 02/20/24 15:15 02/22/24 21:21 1,000 ML Furosemide 40 mg BIDD IV 02/21/24 18:00 02/23/24 09:35 40 MG Amiodarone HCl 200 mg Q12HR PO 02/21/24 22:00 02/22/24 21:10 200 MG Heparin Sodium/ Dextrose 250 ml @ 13 mls/hr [id number] IV 02/22/24 05:00 02/23/24 13:04 13 MLS/HR Vancomycin HCl 500 mg/Dextrose 100 ml @ 200 mls/hr Q24H IV 02/23/24 21:00 Laboratory Results Laboratory Tests 02/23/24 03:25 Chemistry Test 02/23/24 03:25 Calcium Level 8.0 mg/dL (8.7-10.4) L Coagulation Test 02/22/24 17:06 02/22/24 22:59 Prothrombin Time 11.9 sec (9.3-11.8) H 11.9 sec (9.3-11.8) H Prothrombin Time INR 1.13 (0.9-1.15) 1.13 (0.9-1.15) Activated Partial Thromboplast Time 55.2 SEC (24.5-34.5) H 58.7 SEC (24.5-34.5) H Urinalysis Test 02/20/24 18:02 Urine Color Colorless (Yellow) Urine Clarity Clear (Clear) Urine pH 5.5 (5.0-9.0) Urine Specific [place] 1.007 (1.001-1.035) Urine Protein 1+ (Negative) H Urine Ketones Negative (Negative) Urine Blood 2+ /uL (Negative) H Urine Nitrite Negative (Negative) Urine Bilirubin Negative (Negative) Urine Urobilinogen Normal mg/dL (Negative) Urine Leukocyte Esterase 2+ /uL (Negative) Urine RBC 14 /hpf (0 - 3) Urine WBC 7 /hpf (0 - 3) Urine Squamous Epithelial Cells None seen /hpf (<5) Urine Bacteria Few /hpf (None Seen) H Urine Creatinine 33.02 mg/dL (30.0-125.0) Urine Protein/Creatinine Ratio 1.94 Urine Sodium 30 mmol/L (40-220) L Urine Glucose 1+ mg/dL (Normal) H Urine Total Protein 63.9 mg/dL (1-14) H Blood Gas Results Test 02/23/24 06:48 Arterial Blood pH 7.487 (7.350-7.450) FiO2 % 30.0 Microbiology Microbiology Date/Time Source Procedure Growth Status 02/20/24 18:02 Urine - Catheterized Urine Culture - Final Complete 02/19/24 22:00 Nose MRSA Screen - Final Complete 02/19/24 17:40 Blood Blood Culture - Preliminary NO GROWTH AFTER 72 HOURS OF INCUBATION. Resulted 02/19/24 14:46 Sputum Gram Stain - Final Complete 02/19/24 14:46 Sputum Respiratory Culture - Final Complete Assessment/Plan Assessment/Plan Abnormal CT brain scan, to rule out stroke Coma Metabolic encephalopathy Hypoxic encephalopathy Toxic encephalopathy Cardiopulmonary arrest Acute respiratory failure Metabolic acidosis Respiratory acidosis Leukocytosis to rule out sepsis Shock liver Chronic kidney failure Paroxysmal AFib RVR Anisocoria, uncertain clinical significance Assessment/Plan Monitoring Supportive treatment Follow-up lab ICU care Respiratory support/vent management Stabilize vitals Oxygen Heparin drip GI prophylaxis More recommendation per clinical course This medical document was created using an electronic medical record system with [employer] dictation system. Although this document has been carefully reviewed, there may still be some phonetic and typographical errors. These areas are purely typographical due to imperfections of the software programs, and do not reflect any compromise in the patient's medical care Prognosis Guarded Dietary Evaluation Review Comments: 1) If GI is accessible consider Glucerna 1.2 @ 75 ml/hr goal rate as tolerated 2) If pt remains NPO >7 days consider TPN to meet at least 75% of estimated needs 3) Advance pt diet when medically feasible to a Renal Specific K2,Low Phos,SAM,2gmNa,80gPro diet (if not receiving dialysis) 4) Continue current plan of care Expected Outcomes/Goals: 1) Pt to receive adequate nutrition support within 7 days of NPO status 2) Pt diet to advance 3) Pt labs to improve 4) F/U in 2-3 days Plan discussed with: Other Critical Care Time(min): 30 Plan discussed with: Spouse Date of Service: Feb 23, 2024 Billing Provider: MALINA ALVAREZ MD Common Visit Codes: [id number] CARE 30-74 MIN MALINA ALVAREZ MD Feb 23, 2024 16:59
[2024-02-23] MEDS: VANCOMYCIN 500 MG in D5W 5% 100 ML IV SCH (21:24)
[2024-02-24] VITALS (105 sets, daily range): BP systolic 103–152; BP diastolic 58–79; PULSE 57–79; RESP 18–21; TEMP 98.4–99.5; O2SAT 97–100
[2024-02-24 04:17] LABS: Basophils # (auto) 0.1 10 ^3/uL (0-0.2); Basophils % (auto) 0.3 % (0.0-2.0); Eosinophils # (auto) 0.3 10 ^3/uL (0-0.8); Eosinophils % (auto) 1.5 % (0.0-7.0); Hematocrit 28.3 % (41.0-53.0); Hemoglobin 9.2 g/dL (13.5-17.5); Lymphocytes # (auto) 2.3 10 ^3/uL (0.4-5.4); Lymphocytes % (auto) 13.3 % (10.0-50.0); Mean Corpuscular Hemoglobin 29.4 pg (28.0-32.0); Mean Corpuscular Hgb Conc. 32.5 g/dL (32.0-36.0); Mean Corpuscular Volume 90.4 fL (80.0-100.0); Monocytes # (auto) 1.9 10 ^3/uL (0-1.3); Neutrophils % (auto) 73.9 % (37.0-80.0); Nucleated Red Blood Cells % 0.1 %; Platelet Count (auto) 340 10^3/uL (140-450); Red Blood Cells 3.13 10^6/uL (4.5-5.90); Red Cell Distribution Width 16.1 % (11.8-14.3); White Blood Cell 17.5 10^3/uL (4.4-10.8)
[2024-02-24 04:21] LABS: Anion Gap 8 (5-15); Carbon Dioxide 29 mmol/L (20-31); Chloride 107 mmol/L (98-107); Potassium 3.4 mmol/L (3.5-5.1); Sodium 144 mmol/L (136-145)
[2024-02-24 04:22] LABS: Calcium 8.4 mg/dL (8.7-10.4)
[2024-02-24 04:26] LABS: INR 1.13 (0.9-1.15); Partial Thromboplastin Time 37.9 SEC (24.5-34.5); Prothrombin Time 11.9 sec (9.3-11.8)
[2024-02-24 04:27] LABS: BUN/Creatinine Ratio 10.2 (10.0-20.0); Blood Urea Nitrogen 40 mg/dL (9-23); Glucose 105 mg/dL (74-106)
[2024-02-24] MEDS ORDERED: HEPARIN DRIP/D5W 100UNITS/ML 250 ML IV SCH (05:30)
[2024-02-24] MEDS: HEPARIN DRIP/D5W 100UNITS/ML 250 ML IV SCH ×2 (05:46→13:12)
[2024-02-24] MEDS: POTASSIUM CHL 20MEQ/100ML 100 ML IV ONE (05:48)
--- NOTE | 2024-02-24 06:01 | DVH ---
CHEST RADIOGRAPH Indication:cardiac arrest Technique: Single frontal view of the chest was obtained Comparison: XY CHEST XRAY 1 VIEW on DOS: 02/23/24, XY CHEST XRAY 1 VIEW on DOS: 02/22/24, XY CHEST XR AY 1 VIEW on DOS: 02/22/24 IMPRESSION: Endotracheal tube tip is approximately 4 cm from the claudio. The enteric tube tip is within the sto mach. Right IJ catheter tip in the region of the superior vena cava. Heart is enlarged with bibasilar airspace opacities. Moderate pulmonary vascular congestion. No pneum othorax. HS:Y
[2024-02-24 07:21] LABS: Base Excess 3.6 mmol/L (-2.0-3.0)
[2024-02-24 11:31] LABS: Basophils # (auto) 0.1 10 ^3/uL (0-0.2); Basophils % (auto) 0.5 % (0.0-2.0); Eosinophils # (auto) 0.2 10 ^3/uL (0-0.8); Eosinophils % (auto) 1.2 % (0.0-7.0); Hematocrit 32.8 % (41.0-53.0); Hemoglobin 10.4 g/dL (13.5-17.5); Lymphocytes # (auto) 2.1 10 ^3/uL (0.4-5.4); Lymphocytes % (auto) 11.8 % (10.0-50.0); Mean Corpuscular Hemoglobin 29.1 pg (28.0-32.0); Mean Corpuscular Hgb Conc. 31.7 g/dL (32.0-36.0); Monocytes # (auto) 2.1 10 ^3/uL (0-1.3); Monocytes % (auto) 11.9 % (0.0-12.0); Neutrophils # (auto) 13.3 10 ^3/uL (1.6-8.6); Neutrophils % (auto) 74.6 % (37.0-80.0); Platelet Count (auto) 370 10^3/uL (140-450); Red Blood Cells 3.57 10^6/uL (4.5-5.90); Red Cell Distribution Width 16.4 % (11.8-14.3); White Blood Cell 17.8 10^3/uL (4.4-10.8)
[2024-02-24] MEDS: ALBUMIN 25% 100 ML IV ONE (11:36)
[2024-02-24 12:20] LABS: INR 1.1 (0.9-1.15); Prothrombin Time 11.7 sec (9.3-11.8)
[2024-02-24] MEDS: CATHFLO ACTIVASE (ALTEPLASE) 2 MG VIAL IV ONE (13:15)
[2024-02-24] MEDS: SODIUM CHL 0.9% 1000 ML BAG XX ONE (13:20)
--- NOTE | 2024-02-24 16:55 | DVHPN2 ---
Progress Note - Dictate Date Seen: Feb 24, 2024 Medical Necessity Reason Pt with a Central, PICC or Fol: Yes The following are medically ne: Central Line, Barfield Catheter Reason for barfield catheter: Bladder Retention/Obstruc, Strict I&O Subjective Hd treatment vital signs Vital Sign Date Time Temp Pulse Resp B/P (MAP) Pulse Ox O2 Delivery O2 Flow Rate FiO2 02/24/24 16:00 61 02/24/24 16:00 98.8 20 119/69 (86) 98 209.8 132/64 (86) 02/24/24 16:00 Mechanical Ventilator+ 30 30 Total Intake and Output 02/23/24 02/23/24 02/24/24 15:00 23:00 07:00 Intake Total 427 ml 936 ml 613 ml Output Total 2500 ml 3025 ml Balance 427 ml -1564 ml -2412 ml medications Current Medications Medications Dose Ordered Sig/Kishan Route Start Time Stop Time Status Last Admin Dose Admin Propofol 100 ml @ 2.7 mls/hr Q24H IV 02/19/24 14:45 02/19/24 14:45 2.7 MLS/HR Midazolam HCl 50 ml @ 1 mls/hr Q24H IV 02/19/24 17:15 02/24/24 15:22 14 MLS/HR Ondansetron HCl 4 mg Q4HP PRN IV 02/19/24 19:00 Enoxaparin Sodium 40 mg BID SC 02/19/24 22:00 UNV Nitroglycerin 0.4 mg Q5MINP PRN SL 02/19/24 19:00 Morphine Sulfate 2 mg Q30M PRN IV 02/19/24 19:00 Cefepime HCl 50 ml @ 12.5 mls/hr DAILY IV 02/20/24 10:00 UNV Phenylephrine HCl 250 ml @ 30 mls/hr Q8H20M IV 02/19/24 19:45 UNV Vasopressin 20 units/Sodium Chloride 100 ml @ 9 mls/hr Q11H7M IV 02/19/24 19:45 02/19/24 19:45 9 MLS/HR Phenylephrine HCl 80 mg/Sodium Chloride 250 ml @ 7.5 mls/hr Q24H IV 02/19/24 21:15 02/19/24 23:17 16.875 MLS/HR Norepinephrine Bitartrate 32 mg/ Sodium Chloride 250 ml @ 0.938 mls/ hr Q24H IV 02/19/24 21:15 02/21/24 17:08 0.938 MLS/HR Fentanyl Citrate 250 ml @ 2.5 mls/hr Q24H IV 02/19/24 22:30 02/24/24 04:33 20 MLS/HR Dextrose 50 ml UD PRN IV 02/20/24 00:15 Cancel Calcium Gluconate/ Sodium Chloride 50 ml @ 100 mls/hr Q30M IV 02/20/24 08:15 02/20/24 09:14 Cancel Vancomycin HCl 0 ml @ 0 mls/hr UD IV 02/20/24 08:15 Pantoprazole Sodium 40 mg DAILY IV 02/20/24 10:00 02/24/24 10:31 40 MG Meropenem 50 ml @ 17 mls/hr Q12HR IV 02/20/24 10:00 02/24/24 10:33 17 MLS/HR Diagnostic Test (Pha) 1 strip IQ4HR 02/20/24 16:00 02/24/24 15:22 1 STRIP Insulin Human Regular IQ4HR SC 02/20/24 16:00 02/21/24 12:23 2 UNITS Dextrose 50 ml UD PRN IV 02/20/24 15:15 Enteral Nutritional Formula 1,000 ml 40ML/HR NG 02/20/24 15:15 02/24/24 10:30 1,000 ML Furosemide 40 mg BIDD IV 02/21/24 18:00 02/24/24 05:48 40 MG Amiodarone HCl 200 mg Q12HR PO 02/21/24 22:00 02/22/24 21:10 200 MG Vancomycin HCl 500 mg/Dextrose 100 ml @ 200 mls/hr Q24H IV 02/23/24 21:00 02/23/24 21:24 200 MLS/HR Heparin Sodium/ Dextrose 250 ml @ 17 mls/hr [id number] IV 02/24/24 12:45 02/24/24 13:12 17 MLS/HR Lactulose 30 ml BID PO 02/24/24 22:00 objective Middle-aged male Intubated Sedated Not on pressors Abdomen is soft No murmur Mild crackles at the bases Scrotal edema laboratory and microbiology Laboratory Tests 02/24/24 11:04 02/24/24 03:30 Test 02/24/24 03:30 Range/Units Serum Glucose 105 74-106 mg/dL Assessment/Plan Acute kidney injury superimposed Chronic Kidney Disease 4/ 5 secondary hemodynamic mediated Acute respiratory failure, intubated on ventilator Septic shock Obstructive uropathy Bilateral nephrolithiasis Right nephrostomy tube Congestive heart failure exacerbation Bilateral pneumonia Diabetes mellitus type 2 Hyperglycemia Anemia of chronic kidney disease Dialysis epogen diuretics to achieve negative balance IV antibiotics Urology consult We will continue to follow good uop Dietary Evaluation Review Comments: 1) If GI is accessible consider Glucerna 1.2 @ 75 ml/hr goal rate as tolerated 2) If pt remains NPO >7 days consider TPN to meet at least 75% of estimated needs 3) Advance pt diet when medically feasible to a Renal Specific K2,Low Phos,SAM,2gmNa,80gPro diet (if not receiving dialysis) 4) Continue current plan of care Expected Outcomes/Goals: 1) Pt to receive adequate nutrition support within 7 days of NPO status 2) Pt diet to advance 3) Pt labs to improve 4) F/U in 2-3 days Plan discussed with: Other KALYAN FRAZIER MD Feb 24, 2024 16:55
--- NOTE | 2024-02-24 17:45 | DVHPN2 ---
Subjective Mr. Gilmore is a 40 years old left-handed gentleman with a history of hypertension, diabetes, congestive heart failure, chronic kidney disease, the patient was brought to the [facility] on 02/19/2024 with a chief company of shortness breath, his CT brain scan showed evidence suggestive a stroke, I have seen and examined the patient, I discussed with his nurse, he is going through hemodialysis. he is intubated, sedated, he responds to light touch The pupils small, 2 mm, symmetric Changes from previous H/P or p: No Changes Eyes: No Pain, No Vision change, No Conjunctivae inflammation, No Eyelid inflammation, No Other, No Redness ENT: No Ear pain, No Ear discharge, No Nose pain, No Nose discharge, No Nose congestion, No Mouth pain, No Mouth swelling, No Throat pain, No Throat swelling, No Other Cardiovascular: No Chest Pain, No Palpitations, No Orthopnea, No Paroxysmal Noc. Dyspnea, No Edema, No Lt Headedness, No Other Respiratory: No Cough, No Dry; Shortness of breath, SOB with excertion, W heezing; No Hemoptysis, No Pleuritic Pain, No Sputum, No Other Gastrointestinal: No Nausea, No Vomiting, No Abdominal Pain, No Diarrhea, No Constipation, No Melena, No Hematochezia, No Other Genitourinary: No Dysuria, No Frequency, No Incontinence, No Hematuria, No Retention, No Other Musculoskeletal: No other, No neck pain, No shoulder pain, No arm pain, No back pain, No hand pain, No leg pain, No foot pain Skin: No Rash, No Lesions, No Jaundice, No Bruising, No Other Objective Vitals Vital Signs Date Time Temp Pulse Resp B/P (MAP) Pulse Ox O2 Delivery O2 Flow Rate FiO2 02/24/24 17:30 136/70 02/24/24 16:00 61 02/24/24 16:00 98.8 20 98 209.8 02/24/24 16:00 Mechanical Ventilator+ 30 30 Intake/Output Intake and Output 02/24/24 05:00 Intake Total 2114 ml Output Total 4425 ml Balance -2311 ml Intake Oral 60 ml IV Total 1329 ml Tube Feeding 725 ml Output Urine Total 3675 ml Other 750 ml Medications Current Medications Medications Dose Ordered Sig/Kishan Route Start Time Stop Time Status Last Admin Dose Admin Propofol 100 ml @ 2.7 mls/hr Q24H IV 02/19/24 14:45 02/19/24 14:45 2.7 MLS/HR Midazolam HCl 50 ml @ 1 mls/hr Q24H IV 02/19/24 17:15 02/24/24 15:22 14 MLS/HR Ondansetron HCl 4 mg Q4HP PRN IV 02/19/24 19:00 Enoxaparin Sodium 40 mg BID SC 02/19/24 22:00 UNV Nitroglycerin 0.4 mg Q5MINP PRN SL 02/19/24 19:00 Morphine Sulfate 2 mg Q30M PRN IV 02/19/24 19:00 Cefepime HCl 50 ml @ 12.5 mls/hr DAILY IV 02/20/24 10:00 UNV Phenylephrine HCl 250 ml @ 30 mls/hr Q8H20M IV 02/19/24 19:45 UNV Vasopressin 20 units/Sodium Chloride 100 ml @ 9 mls/hr Q11H7M IV 02/19/24 19:45 02/19/24 19:45 9 MLS/HR Phenylephrine HCl 80 mg/Sodium Chloride 250 ml @ 7.5 mls/hr Q24H IV 02/19/24 21:15 02/19/24 23:17 16.875 MLS/HR Norepinephrine Bitartrate 32 mg/ Sodium Chloride 250 ml @ 0.938 mls/ hr Q24H IV 02/19/24 21:15 02/21/24 17:08 0.938 MLS/HR Fentanyl Citrate 250 ml @ 2.5 mls/hr Q24H IV 02/19/24 22:30 02/24/24 17:16 20 MLS/HR Dextrose 50 ml UD PRN IV 02/20/24 00:15 Cancel Calcium Gluconate/ Sodium Chloride 50 ml @ 100 mls/hr Q30M IV 02/20/24 08:15 02/20/24 09:14 Cancel Vancomycin HCl 0 ml @ 0 mls/hr UD IV 02/20/24 08:15 Pantoprazole Sodium 40 mg DAILY IV 02/20/24 10:00 02/24/24 10:31 40 MG Meropenem 50 ml @ 17 mls/hr Q12HR IV 02/20/24 10:00 02/24/24 10:33 17 MLS/HR Diagnostic Test (Pha) 1 strip IQ4HR 02/20/24 16:00 02/24/24 17:24 1 STRIP Insulin Human Regular IQ4HR SC 02/20/24 16:00 02/21/24 12:23 2 UNITS Dextrose 50 ml UD PRN IV 02/20/24 15:15 Enteral Nutritional Formula 1,000 ml 40ML/HR NG 02/20/24 15:15 02/24/24 10:30 1,000 ML Furosemide 40 mg BIDD IV 02/21/24 18:00 02/24/24 17:30 40 MG Amiodarone HCl 200 mg Q12HR PO 02/21/24 22:00 02/22/24 21:10 200 MG Vancomycin HCl 500 mg/Dextrose 100 ml @ 200 mls/hr Q24H IV 02/23/24 21:00 02/23/24 21:24 200 MLS/HR Heparin Sodium/ Dextrose 250 ml @ 17 mls/hr [id number] IV 02/24/24 12:45 02/24/24 13:12 17 MLS/HR Lactulose 30 ml BID PO 02/24/24 22:00 Laboratory Results Laboratory Tests 02/24/24 03:30 02/24/24 11:04 Chemistry Test 02/24/24 03:30 Calcium Level 8.4 mg/dL (8.7-10.4) L Coagulation Test 02/24/24 03:30 02/24/24 11:04 Prothrombin Time 11.9 sec (9.3-11.8) H 11.7 sec (9.3-11.8) Prothrombin Time INR 1.13 (0.9-1.15) 1.1 (0.9-1.15) Activated Partial Thromboplast Time 37.9 SEC (24.5-34.5) H 47.0 SEC (24.5-34.5) H Urinalysis Test 02/20/24 18:02 Urine Color Colorless (Yellow) Urine Clarity Clear (Clear) Urine pH 5.5 (5.0-9.0) Urine Specific [place] 1.007 (1.001-1.035) Urine Protein 1+ (Negative) H Urine Ketones Negative (Negative) Urine Blood 2+ /uL (Negative) H Urine Nitrite Negative (Negative) Urine Bilirubin Negative (Negative) Urine Urobilinogen Normal mg/dL (Negative) Urine Leukocyte Esterase 2+ /uL (Negative) Urine RBC 14 /hpf (0 - 3) Urine WBC 7 /hpf (0 - 3) Urine Squamous Epithelial Cells None seen /hpf (<5) Urine Bacteria Few /hpf (None Seen) H Urine Creatinine 33.02 mg/dL (30.0-125.0) Urine Protein/Creatinine Ratio 1.94 Urine Sodium 30 mmol/L (40-220) L Urine Glucose 1+ mg/dL (Normal) H Urine Total Protein 63.9 mg/dL (1-14) H Blood Gas Results Test 02/24/24 07:10 Arterial Blood pH 7.463 (7.350-7.450) FiO2 % 30.0 Microbiology Microbiology Date/Time Source Procedure Growth Status 02/20/24 18:02 Urine - Catheterized Urine Culture - Final Complete 02/19/24 22:00 Nose MRSA Screen - Final Complete 02/19/24 17:40 Blood Blood Culture - Preliminary NO GROWTH AFTER 72 HOURS OF INCUBATION. Resulted 02/19/24 14:46 Sputum Gram Stain - Final Complete 02/19/24 14:46 Sputum Respiratory Culture - Final Complete Assessment/Plan Assessment/Plan Abnormal CT brain scan, to rule out stroke Coma Metabolic encephalopathy Hypoxic encephalopathy Toxic encephalopathy Cardiopulmonary arrest Acute respiratory failure Metabolic acidosis Respiratory acidosis Leukocytosis to rule out sepsis Shock liver Chronic kidney failure Paroxysmal AFib RVR Anisocoria, uncertain clinical significance Assessment/Plan Monitoring Supportive treatment Follow-up lab ICU care Respiratory support/vent management Stabilize vitals Oxygen Heparin drip GI prophylaxis More recommendation per clinical course Prognosis Guarded Dietary Evaluation Review Comments: 1) If GI is accessible consider Glucerna 1.2 @ 75 ml/hr goal rate as tolerated 2) If pt remains NPO >7 days consider TPN to meet at least 75% of estimated needs 3) Advance pt diet when medically feasible to a Renal Specific K2,Low Phos,SAM,2gmNa,80gPro diet (if not receiving dialysis) 4) Continue current plan of care Expected Outcomes/Goals: 1) Pt to receive adequate nutrition support within 7 days of NPO status 2) Pt diet to advance 3) Pt labs to improve 4) F/U in 2-3 days Plan discussed with: Other Critical Care Time(min): 30 Plan discussed with: Other (nurse) My Orders Orders - MALINA ALVAREZ MD Procedure Category Date Status Time Lactulose Oral PHA 02/24/24 In Process 22:00 Date of Service: Feb 24, 2024 Billing Provider: MALINA ALVAREZ MD Common Visit Codes: [id number] CARE 30-74 MIN MALINA ALVAREZ MD Feb 24, 2024 17:44
[2024-02-24 19:52] LABS: INR 1.1 (0.9-1.15); Partial Thromboplastin Time 49.3 SEC (24.5-34.5); Prothrombin Time 11.6 sec (9.3-11.8)
--- NOTE | 2024-02-24 20:34 | DVHPN2 ---
Progress Note - Dictate Date Seen: Feb 24, 2024 Medical Necessity Reason Pt with a Central, PICC or Fol: Yes The following are medically ne: Central Line, Barfield Catheter Reason for barfield catheter: Bladder Retention/Obstruc, Strict I&O Subjective Mr. Gilmore is a 40 years old left-handed gentleman with a history of hypertension, diabetes, congestive heart failure, chronic kidney disease, the patient was brought to the [facility] on 02/19/2024 with a chief company of shortness breath, his CT brain scan showed evidence suggestive a stroke, I have seen and examined the patient, I discussed with his nurse, he is intubated, sedated, he responds to strong painful stimuli The pupils small, 2-3 mm, symmetric Fentanyl 200 mcg/hour, Versed 14 mg/hour Blood culture, 02/19/2024: UDS, 02/19/2024: Negative ABG, 02/19/2024: metabolic and respiratory acidosis, 02/20/2024: Metabolic acidosis WBC/HB/PLT/MCV, 02/20/24: 25.1/10.2/418/90.8 PT/INR/PTT, 02/22/2024: 11.9/1.13/55.2, 02/24/2024: 11.7/1.1/47 BUN/CR, 02/19/2024: 74/5.35 GFR, 02/19/2024: 12 HGB A1c, 02/10/2024: 76 Glucose, 02/20/2024: 469, 468, 475, 437 Lactic acid, 02/19/2024: 4.2, three, two TBI/AST/ALT/AP, 02/20/2024: 0.5/46/59/163 Troponin one high sensitivity, 02/19/2024: 238, 652, 1010, 06/22/2023: 1886 Beta h hydroxybutyric acid, 02/20/2024: 0.116 TG/HDL/LDL/HDL, 01/2024, 125/193/121/52 EEG : Remarkably abnormal EEG Carotid Doppler, 02/22/2024: 1. No hemodynamically significant stenosis noted in the right carotid system. 2. Nonvisualized left carotid system due to overlying bandage material Chest, 02/19/2024: Bilateral pleural effusions CT head, 02/19/2024: 1. No acute intracranial hemorrhage or mass effect. 2. Mild nonspecific white matter disease which may be related to chronic small-vessel ischemia. 3. Small lower density in the anterior inferior left frontal lobe and in the anterior aspect of the left internal capsule which may be age- indeterminate or subacute to chronic infarcts. 4. Partially imaged dental caries and periapical lucencies in maxillary teeth CT head 02/21/2024: No acute intracranial abnormality. No significant interval change. vital signs Vital Sign Date Time Temp Pulse Resp B/P (MAP) Pulse Ox O2 Delivery O2 Flow Rate FiO2 02/24/24 19:54 67 20 125/71 (89) 97 30 02/24/24 18:45 99.1 210.4 02/24/24 18:00 Mechanical Ventilator+ Total Intake and Output 02/23/24 02/23/24 02/24/24 15:00 23:00 07:00 Intake Total 427 ml 936 ml 613 ml Output Total 2500 ml 3025 ml Balance 427 ml -1564 ml -2412 ml medications Current Medications Medications Dose Ordered Sig/Kishan Route Start Time Stop Time Status Last Admin Dose Admin Propofol 100 ml @ 2.7 mls/hr Q24H IV 02/19/24 14:45 02/19/24 14:45 2.7 MLS/HR Midazolam HCl 50 ml @ 1 mls/hr Q24H IV 02/19/24 17:15 02/24/24 18:48 14 MLS/HR Ondansetron HCl 4 mg Q4HP PRN IV 02/19/24 19:00 Enoxaparin Sodium 40 mg BID SC 02/19/24 22:00 UNV Nitroglycerin 0.4 mg Q5MINP PRN SL 02/19/24 19:00 Morphine Sulfate 2 mg Q30M PRN IV 02/19/24 19:00 Cefepime HCl 50 ml @ 12.5 mls/hr DAILY IV 02/20/24 10:00 UNV Phenylephrine HCl 250 ml @ 30 mls/hr Q8H20M IV 02/19/24 19:45 UNV Vasopressin 20 units/Sodium Chloride 100 ml @ 9 mls/hr Q11H7M IV 02/19/24 19:45 02/19/24 19:45 9 MLS/HR Phenylephrine HCl 80 mg/Sodium Chloride 250 ml @ 7.5 mls/hr Q24H IV 02/19/24 21:15 02/19/24 23:17 16.875 MLS/HR Norepinephrine Bitartrate 32 mg/ Sodium Chloride 250 ml @ 0.938 mls/ hr Q24H IV 02/19/24 21:15 02/21/24 17:08 0.938 MLS/HR Fentanyl Citrate 250 ml @ 2.5 mls/hr Q24H IV 02/19/24 22:30 02/24/24 17:16 20 MLS/HR Dextrose 50 ml UD PRN IV 02/20/24 00:15 Cancel Calcium Gluconate/ Sodium Chloride 50 ml @ 100 mls/hr Q30M IV 02/20/24 08:15 02/20/24 09:14 Cancel Vancomycin HCl 0 ml @ 0 mls/hr UD IV 02/20/24 08:15 Pantoprazole Sodium 40 mg DAILY IV 02/20/24 10:00 02/24/24 10:31 40 MG Meropenem 50 ml @ 17 mls/hr Q12HR IV 02/20/24 10:00 02/24/24 10:33 17 MLS/HR Diagnostic Test (Pha) 1 strip IQ4HR 02/20/24 16:00 02/24/24 17:24 1 STRIP Insulin Human Regular IQ4HR SC 02/20/24 16:00 02/21/24 12:23 2 UNITS Dextrose 50 ml UD PRN IV 02/20/24 15:15 Enteral Nutritional Formula 1,000 ml 40ML/HR NG 02/20/24 15:15 02/24/24 10:30 1,000 ML Furosemide 40 mg BIDD IV 02/21/24 18:00 02/24/24 17:30 40 MG Amiodarone HCl 200 mg Q12HR PO 02/21/24 22:00 02/22/24 21:10 200 MG Vancomycin HCl 500 mg/Dextrose 100 ml @ 200 mls/hr Q24H IV 02/23/24 21:00 02/23/24 21:24 200 MLS/HR Heparin Sodium/ Dextrose 250 ml @ 17 mls/hr [id number] IV 02/24/24 12:45 02/24/24 13:12 17 MLS/HR Lactulose 30 ml BID PO 02/24/24 22:00 objective The patient is well-nourished and well-developed with no distress. The patient is intubated MENTAL STATUS: Subjective CRANIAL NERVES: Pupils are round, and slightly reactive. There are corneal reflexes and doll's eyes phenomenon. No signs of facial weakness. There are gagging or coughing reflexes SENSATION: No responses to pain stimuli. MOTOR: Normal tone in the upper and lower extremity. Normal muscle bulk. No fasciculations. No spontaneous movement. REFLEXES: Deep tendon reflexes are symmetrical. No pathological reflexes. CEREBELLAR/COORDINATION: Deferred GAIT/STATION: deferred. laboratory and microbiology Laboratory Tests 02/24/24 11:04 02/24/24 03:30 Test 02/24/24 03:30 Range/Units Serum Glucose 105 74-106 mg/dL Problem List Abnormal CT brain scan, to rule out stroke Coma Metabolic encephalopathy Hypoxic encephalopathy Toxic encephalopathy Cardiopulmonary arrest Acute respiratory failure Metabolic acidosis Respiratory acidosis Leukocytosis to rule out sepsis Shock liver Chronic kidney failure Paroxysmal AFib RVR Anisocoria, uncertain clinical significance Assessment/Plan Monitoring Supportive treatment Follow-up lab ICU care Respiratory support/vent management Stabilize vitals Oxygen Heparin drip GI prophylaxis More recommendation per clinical course This medical document was created using an electronic medical record system with [email or web address] computerized dictation system. Although this document has been carefully reviewed, there may still be some phonetic and typographical errors. These areas are purely typographical due to imperfections of the software programs, and do not reflect any compromise in the patient's medical care Prognosis Guarded Dietary Evaluation Review Comments: 1) If GI is accessible consider Glucerna 1.2 @ 75 ml/hr goal rate as tolerated 2) If pt remains NPO >7 days consider TPN to meet at least 75% of estimated needs 3) Advance pt diet when medically feasible to a Renal Specific K2,Low Phos,SAM,2gmNa,80gPro diet (if not receiving dialysis) 4) Continue current plan of care Expected Outcomes/Goals: 1) Pt to receive adequate nutrition support within 7 days of NPO status 2) Pt diet to advance 3) Pt labs to improve 4) F/U in 2-3 days Plan discussed with: Other Critical Care Time(min): 30 GUSTAVO AVELAR MD Feb 24, 2024 20:34
[2024-02-24] MEDS: LACTULOSE 20Gm/30ML SOLN PO SCH (22:19)
[2024-02-25] VITALS (106 sets, daily range): BP systolic 95–159; BP diastolic 56–89; PULSE 66–88; RESP 14–21; TEMP 99.1–99.7; O2SAT 95–100
[2024-02-25 03:57] LABS: Basophils # (auto) 0.2 10 ^3/uL (0-0.2); Basophils % (auto) 0.9 % (0.0-2.0); Eosinophils # (auto) 0.3 10 ^3/uL (0-0.8); Eosinophils % (auto) 1.8 % (0.0-7.0); Hematocrit 29.8 % (41.0-53.0); Hemoglobin 9.6 g/dL (13.5-17.5); Lymphocytes # (auto) 2.1 10 ^3/uL (0.4-5.4); Lymphocytes % (auto) 12.5 % (10.0-50.0); Mean Corpuscular Hgb Conc. 32.1 g/dL (32.0-36.0); Mean Corpuscular Volume 90.5 fL (80.0-100.0); Monocytes # (auto) 2.6 10 ^3/uL (0-1.3); Monocytes % (auto) 15.1 % (0.0-12.0); Neutrophils # (auto) 11.7 10 ^3/uL (1.6-8.6); Neutrophils % (auto) 69.7 % (37.0-80.0); Platelet Count (auto) 344 10^3/uL (140-450); Red Cell Distribution Width 15.9 % (11.8-14.3); White Blood Cell 16.9 10^3/uL (4.4-10.8)
[2024-02-25 04:15] LABS: Alanine Aminotransferase 16 U/L (7-40); Albumin 3.3 g/dL (3.2-4.8); Alkaline Phosphatase 130 U/L (46-116); Anion Gap 6 (5-15); Aspartate Aminotransferase 11 U/L (13-40); BUN/Creatinine Ratio 9.6 (10.0-20.0); Blood Urea Nitrogen 36 mg/dL (9-23); Calcium 8.8 mg/dL (8.7-10.4); Carbon Dioxide 29 mmol/L (20-31); Chloride 107 mmol/L (98-107); Glucose 103 mg/dL (74-106); Magnesium 1.9 mg/dL (1.6-2.6); Potassium 3.6 mmol/L (3.5-5.1); Sodium 142 mmol/L (136-145)
[2024-02-25 04:16] LABS: Bilirubin, Total 0.4 mg/dL (0.2-1.0); INR 1.13 (0.9-1.15); Partial Thromboplastin Time 62.3 SEC (24.5-34.5); Prothrombin Time 11.9 sec (9.3-11.8); Total Protein 5.9 g/dL (5.7-8.2)
--- NOTE | 2024-02-25 05:05 | DVH ---
CHEST RADIOGRAPH Indication: Cardiac arrest Technique: Single frontal view of the chest was obtained Comparison: XY CHEST XRAY 1 VIEW on DOS: 02/24/24 FINDINGS: Lines and Tubes: The endotracheal tube terminates 4.6 cm above the claudio. Right and left central eulogio ous catheters terminates in the superior vena cava. The enteric tube courses below the left hemidiaph ragm and the tip extends outside the field of view. Lungs: Bilateral interstitial prominence and bibasilar airspace disease similar to prior study. Pleura: No effusion. No pneumothorax. Cardiomediastinal contours: Unremarkable Bones: No acute osseous abnormality. Right glenohumeral joint arthrosis. IMPRESSION: 1. Bilateral interstitial prominence and bibasilar airspace disease similar to prior study.
[2024-02-25] MEDS: MAGNESIUM SULFATE 1GM/100ML 100 ML IV ONE (05:14)
[2024-02-25 07:09] LABS: Base Excess 3.7 mmol/L (-2.0-3.0)
--- NOTE | 2024-02-25 10:17 | DVHPN2 ---
Progress Note Date Seen: Feb 25, 2024 Medical Necessity Reason Pt with a Central, PICC or Fol: Yes The following are medically ne: Central Line, Barfield Catheter Reason for barfield catheter: Bladder Retention/Obstruc, Strict I&O Subjective Review of Systems: RESPIRATORY:Abnormal Other Systems: Patient seen and examined by myself today in rounds, patient remained intubated on ventilator Objective vital signs Vital Sign Date Time Temp Pulse Resp B/P (MAP) Pulse Ox O2 Delivery O2 Flow Rate FiO2 02/25/24 09:22 76 20 114/59 (77) 99 30 02/25/24 06:30 99.3 210.7 02/25/24 06:00 Mechanical Ventilator+ Total Intake and Output 02/24/24 02/24/24 02/25/24 15:00 23:00 07:00 Intake Total 532 ml 900 ml 936 ml Output Total 2200 ml 2500 ml Balance 532 ml -1300 ml -1564 ml medications Current Medications Medications Dose Ordered Sig/Kishan Route Start Time Stop Time Status Last Admin Dose Admin Propofol 100 ml @ 2.7 mls/hr Q24H IV 02/19/24 14:45 02/19/24 14:45 2.7 MLS/HR Midazolam HCl 50 ml @ 1 mls/hr Q24H IV 02/19/24 17:15 02/25/24 07:55 14 MLS/HR Ondansetron HCl 4 mg Q4HP PRN IV 02/19/24 19:00 Enoxaparin Sodium 40 mg BID SC 02/19/24 22:00 UNV Nitroglycerin 0.4 mg Q5MINP PRN SL 02/19/24 19:00 Morphine Sulfate 2 mg Q30M PRN IV 02/19/24 19:00 Cefepime HCl 50 ml @ 12.5 mls/hr DAILY IV 02/20/24 10:00 UNV Phenylephrine HCl 250 ml @ 30 mls/hr Q8H20M IV 02/19/24 19:45 UNV Vasopressin 20 units/Sodium Chloride 100 ml @ 9 mls/hr Q11H7M IV 02/19/24 19:45 02/19/24 19:45 9 MLS/HR Phenylephrine HCl 80 mg/Sodium Chloride 250 ml @ 7.5 mls/hr Q24H IV 02/19/24 21:15 02/19/24 23:17 16.875 MLS/HR Norepinephrine Bitartrate 32 mg/ Sodium Chloride 250 ml @ 0.938 mls/ hr Q24H IV 02/19/24 21:15 02/21/24 17:08 0.938 MLS/HR Fentanyl Citrate 250 ml @ 2.5 mls/hr Q24H IV 02/19/24 22:30 02/25/24 06:21 20 MLS/HR Dextrose 50 ml UD PRN IV 02/20/24 00:15 Cancel Calcium Gluconate/ Sodium Chloride 50 ml @ 100 mls/hr Q30M IV 02/20/24 08:15 02/20/24 09:14 Cancel Vancomycin HCl 0 ml @ 0 mls/hr UD IV 02/20/24 08:15 Pantoprazole Sodium 40 mg DAILY IV 02/20/24 10:00 02/24/24 10:31 40 MG Meropenem 50 ml @ 17 mls/hr Q12HR IV 02/20/24 10:00 02/24/24 22:19 17 MLS/HR Diagnostic Test (Pha) 1 strip IQ4HR 02/20/24 16:00 02/25/24 03:47 1 STRIP Insulin Human Regular IQ4HR SC 02/20/24 16:00 02/21/24 12:23 2 UNITS Dextrose 50 ml UD PRN IV 02/20/24 15:15 Enteral Nutritional Formula 1,000 ml 40ML/HR NG 02/20/24 15:15 02/24/24 10:30 1,000 ML Amiodarone HCl 200 mg Q12HR PO 02/21/24 22:00 02/24/24 22:19 200 MG Vancomycin HCl 500 mg/Dextrose 100 ml @ 200 mls/hr Q24H IV 02/23/24 21:00 02/24/24 20:45 200 MLS/HR Heparin Sodium/ Dextrose 250 ml @ 19 mls/hr [id number] IV 02/24/24 12:45 02/25/24 01:04 19 MLS/HR Lactulose 30 ml BID PO 02/24/24 22:00 02/24/24 22:19 30 ML Examination: LUNGS:Normal, CVS:Normal, MSK:Normal laboratory and microbiology Laboratory Tests 02/25/24 03:43 Test 02/25/24 03:43 Range/Units Serum Glucose 103 74-106 mg/dL Microbiology Date/Time Source Procedure Growth Status 02/20/24 18:02 Urine - Catheterized Urine Culture - Final Complete 02/19/24 22:00 Nose MRSA Screen - Final Complete 02/19/24 17:40 Blood Blood Culture - Final NO GROWTH AFTER 5 DAYS OF INCUBATION. Complete 02/19/24 14:46 Sputum Gram Stain - Final Complete 02/19/24 14:46 Sputum Respiratory Culture - Final Complete Problem List/Assessment/Plan Problem List/Assessment/Plan Acute kidney injury superimposed Chronic Kidney Disease 4/ 5 secondary hemodynamic mediated, requiring intermittent hemodialysis Acute respiratory failure, intubated on ventilator Septic shock Obstructive uropathy Bilateral nephrolithiasis Right nephrostomy tube Congestive heart failure exacerbation Bilateral pneumonia Diabetes mellitus type 2 Hyperglycemia Iron-deficiency anemia Recommendations Hemodialysis tomorrow Epogen [address] IV post hemodialysis IV iron replacement IV antibiotics Urology consult We will continue to follow Plan discussed with: Other (Nurse) Dietary Evaluation Review Comments: 1) If GI is accessible consider Glucerna 1.2 @ 75 ml/hr goal rate as tolerated 2) If pt remains NPO >7 days consider TPN to meet at least 75% of estimated needs 3) Advance pt diet when medically feasible to a Renal Specific K2,Low Phos,SAM,2gmNa,80gPro diet (if not receiving dialysis) 4) Continue current plan of care Expected Outcomes/Goals: 1) Pt to receive adequate nutrition support within 7 days of NPO status 2) Pt diet to advance 3) Pt labs to improve 4) F/U in 2-3 days NICOLA CANALES MD Feb 25, 2024 10:17
--- NOTE | 2024-02-25 10:32 | DVHPN2 ---
Progress Note - Dictate Date Seen: Feb 25, 2024 Medical Necessity Reason Pt with a Central, PICC or Fol: Yes The following are medically ne: Central Line, Barfield Catheter Reason for barfield catheter: Bladder Retention/Obstruc, Strict I&O Subjective Mr. Gilmore is a 40 years old left-handed gentleman with a history of hypertension, diabetes, congestive heart failure, chronic kidney disease, the patient was brought to the [facility] on 02/19/2024 with a chief company of shortness breath, his CT brain scan showed evidence suggestive a stroke, I have seen and examined the patient, I discussed with his nurse, he is intubated, sedated, he responds to strong painful stimuli The pupils small, 2 mm, symmetric Fentanyl 200 mcg/hour, Versed 13 mg/hour, heparin drip Blood culture, 02/19/2024: UDS, 02/19/2024: Negative ABG, 02/19/2024: metabolic and respiratory acidosis, 02/20/2024: Metabolic acidosis WBC/HB/PLT/MCV, 02/20/24: 25.1/10.2/418/90.8 PT/INR/PTT, 02/22/2024: 11.9/1.13/55.2, 02/24/2024: 11.7/1.1/47 BUN/CR, 02/19/2024: 74/5.35 GFR, 02/19/2024: 12 HGB A1c, 02/10/2024: 76 Glucose, 02/20/2024: 469, 468, 475, 437 Lactic acid, 02/19/2024: 4.2, three, two TBI/AST/ALT/AP, 02/20/2024: 0.5/46/59/163 Troponin one high sensitivity, 02/19/2024: 238, 652, 1010, 06/22/2023: 1886 Beta h hydroxybutyric acid, 02/20/2024: 0.116 TG/HDL/LDL/HDL, 01/2024, 125/193/121/52 EEG : Remarkably abnormal EEG Carotid Doppler, 02/22/2024: 1. No hemodynamically significant stenosis noted in the right carotid system. 2. Nonvisualized left carotid system due to overlying bandage material Chest, 02/19/2024: Bilateral pleural effusions CT head, 02/19/2024: 1. No acute intracranial hemorrhage or mass effect. 2. Mild nonspecific white matter disease which may be related to chronic small-vessel ischemia. 3. Small lower density in the anterior inferior left frontal lobe and in the anterior aspect of the left internal capsule which may be age- indeterminate or subacute to chronic infarcts. 4. Partially imaged dental caries and periapical lucencies in maxillary teeth CT head 02/21/2024: No acute intracranial abnormality. No significant interval change. vital signs Vital Sign Date Time Temp Pulse Resp B/P (MAP) Pulse Ox O2 Delivery O2 Flow Rate FiO2 02/25/24 09:22 76 20 114/59 (77) 99 30 02/25/24 06:30 99.3 210.7 02/25/24 06:00 Mechanical Ventilator+ Total Intake and Output 02/24/24 02/24/24 02/25/24 15:00 23:00 07:00 Intake Total 532 ml 900 ml 936 ml Output Total 2200 ml 2500 ml Balance 532 ml -1300 ml -1564 ml medications Current Medications Medications Dose Ordered Sig/Kishan Route Start Time Stop Time Status Last Admin Dose Admin Propofol 100 ml @ 2.7 mls/hr Q24H IV 02/19/24 14:45 02/19/24 14:45 2.7 MLS/HR Midazolam HCl 50 ml @ 1 mls/hr Q24H IV 02/19/24 17:15 02/25/24 07:55 14 MLS/HR Ondansetron HCl 4 mg Q4HP PRN IV 02/19/24 19:00 Enoxaparin Sodium 40 mg BID SC 02/19/24 22:00 UNV Nitroglycerin 0.4 mg Q5MINP PRN SL 02/19/24 19:00 Morphine Sulfate 2 mg Q30M PRN IV 02/19/24 19:00 Cefepime HCl 50 ml @ 12.5 mls/hr DAILY IV 02/20/24 10:00 UNV Phenylephrine HCl 250 ml @ 30 mls/hr Q8H20M IV 02/19/24 19:45 UNV Vasopressin 20 units/Sodium Chloride 100 ml @ 9 mls/hr Q11H7M IV 02/19/24 19:45 02/19/24 19:45 9 MLS/HR Phenylephrine HCl 80 mg/Sodium Chloride 250 ml @ 7.5 mls/hr Q24H IV 02/19/24 21:15 02/19/24 23:17 16.875 MLS/HR Norepinephrine Bitartrate 32 mg/ Sodium Chloride 250 ml @ 0.938 mls/ hr Q24H IV 02/19/24 21:15 02/21/24 17:08 0.938 MLS/HR Fentanyl Citrate 250 ml @ 2.5 mls/hr Q24H IV 02/19/24 22:30 02/25/24 06:21 20 MLS/HR Dextrose 50 ml UD PRN IV 02/20/24 00:15 Cancel Calcium Gluconate/ Sodium Chloride 50 ml @ 100 mls/hr Q30M IV 02/20/24 08:15 02/20/24 09:14 Cancel Vancomycin HCl 0 ml @ 0 mls/hr UD IV 02/20/24 08:15 Pantoprazole Sodium 40 mg DAILY IV 02/20/24 10:00 02/24/24 10:31 40 MG Meropenem 50 ml @ 17 mls/hr Q12HR IV 02/20/24 10:00 02/24/24 22:19 17 MLS/HR Diagnostic Test (Pha) 1 strip IQ4HR 02/20/24 16:00 02/25/24 08:55 1 STRIP Insulin Human Regular IQ4HR SC 02/20/24 16:00 02/21/24 12:23 2 UNITS Dextrose 50 ml UD PRN IV 02/20/24 15:15 Enteral Nutritional Formula 1,000 ml 40ML/HR NG 02/20/24 15:15 02/24/24 10:30 1,000 ML Amiodarone HCl 200 mg Q12HR PO 02/21/24 22:00 02/24/24 22:19 200 MG Vancomycin HCl 500 mg/Dextrose 100 ml @ 200 mls/hr Q24H IV 02/23/24 21:00 02/24/24 20:45 200 MLS/HR Heparin Sodium/ Dextrose 250 ml @ 19 mls/hr [id number] IV 02/24/24 12:45 02/25/24 01:04 19 MLS/HR Lactulose 30 ml BID PO 02/24/24 22:00 02/24/24 22:19 30 ML Iron Sucrose 110 ml @ 110 mls/hr DAILY@1200 IV 02/25/24 12:00 02/28/24 12:59 UNV objective The patient is well-nourished and well-developed with no distress. The patient is intubated MENTAL STATUS: Subjective CRANIAL NERVES: Pupils are round, and slightly reactive. There are corneal reflexes and doll's eyes phenomenon. No signs of facial weakness. There are gagging or coughing reflexes SENSATION: No responses to pain stimuli. MOTOR: Normal tone in the upper and lower extremity. Normal muscle bulk. No fasciculations. No spontaneous movement. REFLEXES: Deep tendon reflexes are symmetrical. No pathological reflexes. CEREBELLAR/COORDINATION: Deferred GAIT/STATION: deferred. laboratory and microbiology Laboratory Tests 02/25/24 03:43 Test 02/25/24 03:43 Range/Units Serum Glucose 103 74-106 mg/dL Problem List Abnormal CT brain scan, to rule out stroke Coma Metabolic encephalopathy Hypoxic encephalopathy Toxic encephalopathy Cardiopulmonary arrest Acute respiratory failure Metabolic acidosis Respiratory acidosis Leukocytosis to rule out sepsis Shock liver Chronic kidney failure Paroxysmal AFib RVR Anisocoria, uncertain clinical significance Assessment/Plan Monitoring Supportive treatment Follow-up lab ICU care Respiratory support/vent management Stabilize vitals Oxygen Heparin drip GI prophylaxis More recommendation per clinical course This medical document was created using an electronic medical record system with [employer] dictation system. Although this document has been carefully reviewed, there may still be some phonetic and typographical errors. These areas are purely typographical due to imperfections of the software programs, and do not reflect any compromise in the patient's medical care Prognosis poor Dietary Evaluation Review Comments: 1) If GI is accessible consider Glucerna 1.2 @ 75 ml/hr goal rate as tolerated 2) If pt remains NPO >7 days consider TPN to meet at least 75% of estimated needs 3) Advance pt diet when medically feasible to a Renal Specific K2,Low Phos,SAM,2gmNa,80gPro diet (if not receiving dialysis) 4) Continue current plan of care Expected Outcomes/Goals: 1) Pt to receive adequate nutrition support within 7 days of NPO status 2) Pt diet to advance 3) Pt labs to improve 4) F/U in 2-3 days Plan discussed with: Other GUSTAVO AVELAR MD Feb 25, 2024 10:32
[2024-02-25 11:11] LABS: INR 1.1 (0.9-1.15); Partial Thromboplastin Time 60.7 SEC (24.5-34.5); Prothrombin Time 11.6 sec (9.3-11.8)
--- NOTE | 2024-02-25 13:51 | ECG ---
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
--- NOTE | 2024-02-25 14:21 | DVH ---
US CHEST ULTRASOUND, HISTORY: right sided effusion COMPARISON(S): None TECHNICAL DATA: Transverse and longitudinal images are obtained of the chest. FINDING: IMPRESSION(S): Trace bilateral pleural effusion, right > left.
[2024-02-25] MEDS ORDERED: DEXTROSE (50%) 50ML SYRG IV PRN (15:00)
[2024-02-25] MEDS: IRON SUCROSE COMPLEX 110 ML IV SCH (16:12)
[2024-02-25 18:07] LABS: INR 1.12 (0.9-1.15); Partial Thromboplastin Time 51.3 SEC (24.5-34.5); Prothrombin Time 11.8 sec (9.3-11.8)
[2024-02-25] MEDS: ACCU-CHEK COMFORT CURVE STRIP VI SCH (18:25)
[2024-02-25] MEDS: InsuLIN REG 1unit/0.01ml Soln (100units/ml) SC SCH (18:30)
[2024-02-25] MEDS: FUROSEMIDE 40 MG/4 ML VIAL IV SCH (18:38)
--- NOTE | 2024-02-25 21:51 | DVHPNRES ---
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 Patient was brought to the hospital via EMS for worsening shortness of breath for past few days as per mother. As per mother patient was complaining having difficulty breathing which was progressively worsening that prompted her to call EMS.. Initially patient was on CPAP on arrival to EMS however patient was intubated in emergency department. After intubation patient blood pressure progressively worsening and patient had cardiac arrest with pea . Code blue was called, down time was 11 minutes and ROSC was achieved after 11 minutes of code blue. PSH: None as per mother. Home meds: Metoprolol succinate 50 mg daily, Eliquis 5 mg p.o. b.i.d., sevelamer carbonate 800 mg p.o. t.i.d., sodium bicarbonate 650 mg p.o. q.i.d., tamsulosin 0.4 mg p.o. q.a.m.,Amlodipine 10 mg p.o. daily. Social history: NAD Family history: NAD ROS: Review of systems not obtained as patient is intubated. Patient seen and examined in ICU. Off levophed, tolerating feeding. No new night events. Plan for cpap trial tomorrow. continue with lasix IV , possible dialysis tomorrow before cpap trial. Objective vital signs Vital Sign Date Time Temp Pulse Resp B/P (MAP) Pulse Ox O2 Delivery O2 Flow Rate FiO2 02/25/24 21:30 99.7 76 20 95/61 (72) 100 211.5 110/58 (75) 02/25/24 20:00 30 02/25/24 20:00 Mechanical Ventilator+ Total Intake and Output 02/24/24 02/24/24 02/25/24 15:00 23:00 07:00 Intake Total 532 ml 900 ml 989 ml Output Total 2200 ml 2500 ml Balance 532 ml -1300 ml -1511 ml medications Current Medications Medications Dose Ordered Sig/Kishan Route Start Time Stop Time Status Last Admin Dose Admin Propofol 100 ml @ 2.7 mls/hr Q24H IV 02/19/24 14:45 02/19/24 14:45 2.7 MLS/HR Midazolam HCl 50 ml @ 1 mls/hr Q24H IV 02/19/24 17:15 02/25/24 18:33 14 MLS/HR Ondansetron HCl 4 mg Q4HP PRN IV 02/19/24 19:00 Enoxaparin Sodium 40 mg BID SC 02/19/24 22:00 UNV Nitroglycerin 0.4 mg Q5MINP PRN SL 02/19/24 19:00 Morphine Sulfate 2 mg Q30M PRN IV 02/19/24 19:00 Cefepime HCl 50 ml @ 12.5 mls/hr DAILY IV 02/20/24 10:00 UNV Phenylephrine HCl 250 ml @ 30 mls/hr Q8H20M IV 02/19/24 19:45 UNV Norepinephrine Bitartrate 32 mg/ Sodium Chloride 250 ml @ 0.938 mls/ hr Q24H IV 02/19/24 21:15 02/21/24 17:08 0.938 MLS/HR Fentanyl Citrate 250 ml @ 2.5 mls/hr Q24H IV 02/19/24 22:30 02/25/24 18:35 20 MLS/HR Dextrose 50 ml UD PRN IV 02/20/24 00:15 Cancel Calcium Gluconate/ Sodium Chloride 50 ml @ 100 mls/hr Q30M IV 02/20/24 08:15 02/20/24 09:14 Cancel Vancomycin HCl 0 ml @ 0 mls/hr UD IV 02/20/24 08:15 Pantoprazole Sodium 40 mg DAILY IV 02/20/24 10:00 02/25/24 11:23 40 MG Meropenem 50 ml @ 17 mls/hr Q12HR IV 02/20/24 10:00 02/25/24 11:22 17 MLS/HR Enteral Nutritional Formula 1,000 ml 40ML/HR NG 02/20/24 15:15 02/25/24 11:41 1,000 ML Amiodarone HCl 200 mg Q12HR PO 02/21/24 22:00 02/25/24 11:23 200 MG Vancomycin HCl 500 mg/Dextrose 100 ml @ 200 mls/hr Q24H IV 02/23/24 21:00 02/25/24 21:17 200 MLS/HR Heparin Sodium/ Dextrose 250 ml @ 19 mls/hr [id number] IV 02/24/24 12:45 02/25/24 14:48 19 MLS/HR Lactulose 30 ml BID PO 02/24/24 22:00 02/25/24 11:57 30 ML Iron Sucrose 110 ml @ 110 mls/hr DAILY@1200 IV 02/25/24 12:00 02/28/24 12:59 02/25/24 16:12 110 MLS/HR Dexmedetomidine HCl 400 mcg/ Dextrose 100 ml @ 3.97 mls/hr Q24H IV 02/26/24 04:00 Furosemide 40 mg BIDD IV 02/25/24 18:00 02/25/24 18:38 40 MG Diagnostic Test (Pha) 1 strip Q6HR 02/25/24 18:00 02/25/24 18:25 1 STRIP Insulin Human Regular Q6HR SC 02/25/24 18:00 Dextrose 50 ml UD PRN IV 02/25/24 15:00 Examination General Appearance: Sedated on mechanical ventilation. Head Exam: Normal inspection Neck Exam: Normal inspection. Non-tender. Normal alignment Pulmonary/Respiratory: Chest non-tender. Bilateral lungs crackles. Cardiovascular/Chest: Regular rate and rhythm. No murmurs. No JVD. Peripheral Pulses: 2+ Radial (R). 2+ Radial (L). 2+ Pedal (R). 2+ Pedal (L) Abdominal Exam: Normal bowel sounds. Soft. Nontender. No hepatospenomegaly. No masses Ankle Exam: Negative ankle edema Lower extremities: Negative lower extremity edema, Positive scrotal swelling Neuro/Mental Status: Sedated, RASS -3 laboratory and microbiology Laboratory Tests 02/25/24 03:43 Test 02/25/24 03:43 Range/Units Serum Glucose 103 74-106 mg/dL Microbiology Date/Time Source Procedure Growth Status 02/20/24 18:02 Urine - Catheterized Urine Culture - Final Complete 02/19/24 22:00 Nose MRSA Screen - Final Complete 02/19/24 17:40 Blood Blood Culture - Final NO GROWTH AFTER 5 DAYS OF INCUBATION. Complete 02/19/24 14:46 Sputum Gram Stain - Final Complete 02/19/24 14:46 Sputum Respiratory Culture - Final Complete Problem List/Assessment/Plan Problem List/Assessment/Plan NEUROLOGY Subacute versus chronic stroke -CT head(03/21/24):Small lower density in the anterior inferior left frontal lobe and in the anterior aspect of the left internal capsule which may be age- indeterminate or subacute to chronic infarcts. -neurology consultation -MRI -EEG Sedated on mechanical ventilation -on Versed 50 mg/hour, fentanyl 225 mg/hour, Precedex CARDIOVASCULAR Cardiac arrest SP ROSC -Coded on 02/19/24. Downtime 11 mintues. Septic shock due to Gram-positive/Gram-negative pneumonia, -Off vasopressor now. -IV Lasix 40 mg BID -IV antibiotic with meropenem and vancomycin -Discontinue steroids given hemodynamic stability with one pressor. -CT chest(03/21/24):CT scan of chest and abdomen:1. CHF/volume overload with mild cardiomegaly, small to moderate bilateral pleural effusions, interstitial pulmonary edema, diffuse body wall edema and mild ascites. 2. Patchy and confluent airspace consolidations in all 5 lobes which could reflect multifocal pneumonia and/or pulmonary edema. 3. Endotracheal , gastric tubes, and right IJ central venous catheter are in place as described. 4. Right posterior approach percutaneous nephrostomy tube in place. No hydronephrosis in either kidney. 5. Bilateral urothelial thickening and diffuse bladder wall thickening. Correlate with urinalysis for ascending infection and cystitis, respectively. 6. Nonobstructing bilateral renal calculi. 7. Moderate retained stool in the colon. NSTEMI type 2 likely due to above -continue current management of septic shock -cardiology: No origin coronary Angiography needed at this point -EKG: Sinus tachycardia with no ST elevation. Acute on chronic HFrEF( EF 30%) -ECHo(02/20):Severely reduced left ventricular systolic function with estimated ejection fraction 15% in a global fashion. -BNP(02/19/24):2390 -underwent dialysis(02/20/24): 2.7 L removed -Continue IV lasix 40 mg BID lactic acidosis due to septic shock:Resolved Afib with RVR -Heparin drip -Amiodarone 200 mg BID via GT tube. RESPIRATORY Acute hypoxic respiratory failure due to pneumonia -on ventilator: Volume control, respiratory rate 20, FiO2 400, FiO2 40%, peep 6: Titrating down PEEP slowly. -continue current management of septic shock -Off vasopressor. CPAP trial in AM Pulmonary edema -Repeat Chest xray in AM /KIDNEY YOMI due to VMN in setting of septic shock and CHF -Dialysis(02/20/24): 2.7 L removed -Continue monitor I/O -Nephrology on board: decided to do dialysis yesterday ? Acute cystitis -Continue antibiotics with meropenam and vancomycin Nonobstructing bilateral renal calculi with Right nephrostomy -Underwent bilateral nephrostomy ,currently has right nephrostomy tube. -nephrostomy tube patent Hyperkalemia; resolved GI Mild ascites -Continue monitor Constipation -PRN lactulose ENDO Uncontrolled diabetes mellitus type 2, HGB A1c 7.4 -initially patient was on insulin drip, discontinued given lower trend of glucose -moderate insulin sliding scale Hypocalcemia and hyperphosphatemia -continue with dialysis. LINES Right IJ (02/19/24) Left IJ Sravan cath(02/20/24) [place] (02/19/24) Intubated (02/19/24) Barfield GT tube NUTRITION Nepro: 10 ml per hour, Target 40 ml/hr DVT Prophylaxis: heparin PUD prophylaxis: protonix. Code status discussed with mother greater than 22 minutes full code. Critical care time > 81 minutes- including dw family Plan discussed with Dr Marina Plan discussed with: Other (mother) My Orders My Orders Orders - FLORINA DE RESIDENT Procedure Category Date Status Time Abg W/ Co-Ox RT 02/25/24 Logged 04:00 D5w 5% (Dextrose 5%) PHA 02/26/24 In Process W/Dexmedetomidine 04:00 Chest Ultrasound US 02/25/24 Resulted 13:49 Furosemide Injection PHA 02/25/24 In Process (Lasix Injection) 18:00 Dietary Evaluation Review Comments: 1) If GI is accessible consider Glucerna 1.2 @ 75 ml/hr goal rate as tolerated 2) If pt remains NPO >7 days consider TPN to meet at least 75% of estimated needs 3) Advance pt diet when medically feasible to a Renal Specific K2,Low Phos,SAM,2gmNa,80gPro diet (if not receiving dialysis) 4) Continue current plan of care Expected Outcomes/Goals: 1) Pt to receive adequate nutrition support within 7 days of NPO status 2) Pt diet to advance 3) Pt labs to improve 4) F/U in 2-3 days Date of Service: Feb 25, 2024 Billing Provider: MAXIMILIANO CUENCA MD Common Visit Codes: 53098-[id number] CARE 30-74 MIN, 07712-[id number] CARE-EACH +30MIN FLORINA ED RESIDENT Feb 25, 2024 21:51 MAXIMILIANO CUENCA MD Feb 26, 2024 11:03
[2024-02-26] VITALS (107 sets, daily range): BP systolic 74–157; BP diastolic 45–96; PULSE 68–94; RESP 13–29; TEMP 98.8–100.9; O2SAT 78–100
[2024-02-26 03:40] LABS: Basophils # (auto) 0.1 10 ^3/uL (0-0.2); Basophils % (auto) 0.4 % (0.0-2.0); Eosinophils # (auto) 0.2 10 ^3/uL (0-0.8); Eosinophils % (auto) 1.2 % (0.0-7.0); Hematocrit 29.5 % (41.0-53.0); Hemoglobin 9.6 g/dL (13.5-17.5); Lymphocytes # (auto) 1.8 10 ^3/uL (0.4-5.4); Lymphocytes % (auto) 8.6 % (10.0-50.0); Mean Corpuscular Hemoglobin 29.2 pg (28.0-32.0); Mean Corpuscular Hgb Conc. 32.3 g/dL (32.0-36.0); Mean Corpuscular Volume 90.3 fL (80.0-100.0); Monocytes # (auto) 2.7 10 ^3/uL (0-1.3); Monocytes % (auto) 12.9 % (0.0-12.0); Neutrophils # (auto) 16.1 10 ^3/uL (1.6-8.6); Neutrophils % (auto) 76.9 % (37.0-80.0); Platelet Count (auto) 355 10^3/uL (140-450); Red Blood Cells 3.27 10^6/uL (4.5-5.90); White Blood Cell 20.9 10^3/uL (4.4-10.8)
[2024-02-26 03:43] LABS: Chloride 105 mmol/L (98-107); Potassium 3.8 mmol/L (3.5-5.1); Sodium 141 mmol/L (136-145)
[2024-02-26 03:44] LABS: Anion Gap 7 (5-15); Calcium 8.7 mg/dL (8.7-10.4); Carbon Dioxide 29 mmol/L (20-31)
[2024-02-26 03:49] LABS: BUN/Creatinine Ratio 9.5 (10.0-20.0); Blood Urea Nitrogen 40 mg/dL (9-23); Glucose 142 mg/dL (74-106)
[2024-02-26 03:54] LABS: INR 1.13 (0.9-1.15); Partial Thromboplastin Time 65.2 SEC (24.5-34.5); Prothrombin Time 11.9 sec (9.3-11.8)
[2024-02-26] MEDS: SODIUM CHL 0.9% 1000 ML BAG XX ONE (07:00)
--- NOTE | 2024-02-26 07:50 | DVH ---
CHEST RADIOGRAPH Indication:cardiac arrest Technique: Single frontal view of the chest was obtained COMPARISON: XY CHEST XRAY 1 VIEW on DOS: 02/25/24, XY CHEST XRAY 1 VIEW on DOS: 02/24/24, XY CHEST XR AY 1 VIEW on DOS: 02/23/24 FINDINGS: Lines and Tubes: Endotracheal tube, enteric catheter, left and right central venous catheter is in sa tisfactory position. Lungs: Congestion. Pleura: Small left pleural effusion. No pneumothorax. Cardiomediastinal contours: Unremarkable Bones: Unremarkable IMPRESSION: Lines and tubes in satisfactory position. No significant interval change.
[2024-02-26 08:19] LABS: Base Excess 2.5 mmol/L (-2.0-3.0)
--- NOTE | 2024-02-26 10:35 | DVHPN2 ---
Progress Note - Dictate Date Seen: Feb 26, 2024 Medical Necessity Reason Pt with a Central, PICC or Fol: Yes The following are medically ne: Central Line, Barfield Catheter Reason for barfield catheter: Bladder Retention/Obstruc, Strict I&O Subjective Mr. Gilmore is a 40 years old left-handed gentleman with a history of hypertension, diabetes, congestive heart failure, chronic kidney disease, the patient was brought to the [facility] on 02/19/2024 with a chief company of shortness breath, his CT brain scan showed evidence suggestive a stroke, I have seen and examined the patient, I discussed with his nurse, mother is in the room with him, he is intubated, sedated, he responds to strong painful stimuli The pupils small, 2 mm, symmetric He is on CPAP now Fentany 75 mcg/hour, Versed 13 mg/hour, heparin drip Blood culture, 02/19/2024: UDS, 02/19/2024: Negative ABG, 02/19/2024: metabolic and respiratory acidosis, 02/20/2024: Metabolic acidosis WBC/HB/PLT/MCV, 02/20/24: 25.1/10.2/418/90.8 PT/INR/PTT, 02/22/2024: 11.9/1.13/55.2, 02/24/2024: 11.7/1.1/47 BUN/CR, 02/19/2024: 74/5.35 GFR, 02/19/2024: 12 HGB A1c, 02/10/2024: 76 Glucose, 02/20/2024: 469, 468, 475, 437 Lactic acid, 02/19/2024: 4.2, three, two TBI/AST/ALT/AP, 02/20/2024: 0.5/46/59/163 Troponin one high sensitivity, 02/19/2024: 238, 652, 1010, 06/22/2023: 1886 Beta h hydroxybutyric acid, 02/20/2024: 0.116 TG/HDL/LDL/HDL, 01/2024, 125/193/121/52 EEG : Remarkably abnormal EEG Carotid Doppler, 02/22/2024: 1. No hemodynamically significant stenosis noted in the right carotid system. 2. Nonvisualized left carotid system due to overlying bandage material Chest, 02/19/2024: Bilateral pleural effusions CT head, 02/19/2024: 1. No acute intracranial hemorrhage or mass effect. 2. Mild nonspecific white matter disease which may be related to chronic small-vessel ischemia. 3. Small lower density in the anterior inferior left frontal lobe and in the anterior aspect of the left internal capsule which may be age- indeterminate or subacute to chronic infarcts. 4. Partially imaged dental caries and periapical lucencies in maxillary teeth CT head 02/21/2024: No acute intracranial abnormality. No significant interval change. vital signs Vital Sign Date Time Temp Pulse Resp B/P (MAP) Pulse Ox O2 Delivery O2 Flow Rate FiO2 02/26/24 10: 128/81 02/26/24 10:10 84 20 92 30 02/26/24 06:45 99.0 210.2 02/26/24 06:00 Mechanical Ventilator+ Total Intake and Output 02/25/24 02/25/24 02/26/24 15:00 23:00 07:00 Intake Total 510 ml 1128 ml 842.5 ml Output Total 250 ml 2250 ml 1725 ml Balance 260 ml -1122 ml -882.5 ml medications Current Medications Medications Dose Ordered Sig/Kishan Route Start Time Stop Time Status Last Admin Dose Admin Propofol 100 ml @ 2.7 mls/hr Q24H IV 02/19/24 14:45 02/19/24 14:45 2.7 MLS/HR Midazolam HCl 50 ml @ 1 mls/hr Q24H IV 02/19/24 17:15 02/26/24 05:50 10 MLS/HR Ondansetron HCl 4 mg Q4HP PRN IV 02/19/24 19:00 Enoxaparin Sodium 40 mg BID SC 02/19/24 22:00 UNV Nitroglycerin 0.4 mg Q5MINP PRN SL 02/19/24 19:00 Morphine Sulfate 2 mg Q30M PRN IV 02/19/24 19:00 Cefepime HCl 50 ml @ 12.5 mls/hr DAILY IV 02/20/24 10:00 UNV Phenylephrine HCl 250 ml @ 30 mls/hr Q8H20M IV 02/19/24 19:45 UNV Norepinephrine Bitartrate 32 mg/ Sodium Chloride 250 ml @ 0.938 mls/ hr Q24H IV 02/19/24 21:15 02/21/24 17:08 0.938 MLS/HR Fentanyl Citrate 250 ml @ 2.5 mls/hr Q24H IV 02/19/24 22:30 02/26/24 09:02 12.5 MLS/HR Dextrose 50 ml UD PRN IV 02/20/24 00:15 Cancel Calcium Gluconate/ Sodium Chloride 50 ml @ 100 mls/hr Q30M IV 02/20/24 08:15 02/20/24 09:14 Cancel Vancomycin HCl 0 ml @ 0 mls/hr UD IV 02/20/24 08:15 Pantoprazole Sodium 40 mg DAILY IV 02/20/24 10:00 02/26/24 09:42 40 MG Meropenem 50 ml @ 17 mls/hr Q12HR IV 02/20/24 10:00 02/26/24 09:41 17 MLS/HR Enteral Nutritional Formula 1,000 ml 40ML/HR NG 02/20/24 15:15 02/25/24 11:41 1,000 ML Amiodarone HCl 200 mg Q12HR PO 02/21/24 22:00 02/26/24 09:42 200 MG Vancomycin HCl 500 mg/Dextrose 100 ml @ 200 mls/hr Q24H IV 02/23/24 21:00 02/25/24 21:17 200 MLS/HR Heparin Sodium/ Dextrose 250 ml @ 19 mls/hr [id number] IV 02/24/24 12:45 02/26/24 01:57 19 MLS/HR Lactulose 30 ml BID PO 02/24/24 22:00 02/26/24 09:42 30 ML Iron Sucrose 110 ml @ 110 mls/hr DAILY@1200 IV 02/25/24 12:00 02/28/24 12:59 02/25/24 16:12 110 MLS/HR Dexmedetomidine HCl 400 mcg/ Dextrose 100 ml @ 3.97 mls/hr Q24H IV 02/26/24 04:00 02/26/24 10:28 3.97 MLS/HR Furosemide 40 mg BIDD IV 02/25/24 18:00 02/26/24 07:43 40 MG Diagnostic Test (Pha) 1 strip Q6HR 02/25/24 18:00 02/26/24 05:50 1 STRIP Insulin Human Regular Q6HR SC 02/25/24 18:00 Dextrose 50 ml UD PRN IV 02/25/24 15:00 objective The patient is well-nourished and well-developed with no distress. The patient is intubated MENTAL STATUS: Subjective CRANIAL NERVES: Pupils are round, and slightly reactive. There are corneal reflexes and doll's eyes phenomenon. No signs of facial weakness. There are gagging or coughing reflexes SENSATION: No responses to pain stimuli. MOTOR: Normal tone in the upper and lower extremity. Normal muscle bulk. No fasciculations. No spontaneous movement. REFLEXES: Deep tendon reflexes are symmetrical. No pathological reflexes. CEREBELLAR/COORDINATION: Deferred GAIT/STATION: deferred. laboratory and microbiology Laboratory Tests 02/26/24 03:10 Test 02/26/24 03:10 Range/Units Serum Glucose 142 H 74-106 mg/dL Problem List Abnormal CT brain scan, to rule out stroke Coma Metabolic encephalopathy Hypoxic encephalopathy Toxic encephalopathy Cardiopulmonary arrest Acute respiratory failure Metabolic acidosis Respiratory acidosis Leukocytosis to rule out sepsis Shock liver Chronic kidney failure Paroxysmal AFib RVR Anisocoria, uncertain clinical significance Assessment/Plan Monitoring Supportive treatment Follow-up lab ICU care Respiratory support/vent management Stabilize vitals Oxygen Heparin drip GI prophylaxis More recommendation per clinical course This medical document was created using an electronic medical record system with [employer] dictation system. Although this document has been carefully reviewed, there may still be some phonetic and typographical errors. These areas are purely typographical due to imperfections of the software programs, and do not reflect any compromise in the patient's medical care Prognosis guarded Dietary Evaluation Review Comments: 1) If GI is accessible consider Glucerna 1.2 @ 75 ml/hr goal rate as tolerated 2) If pt remains NPO >7 days consider TPN to meet at least 75% of estimated needs 3) Advance pt diet when medically feasible to a Renal Specific K2,Low Phos,SAM,2gmNa,80gPro diet (if not receiving dialysis) 4) Continue current plan of care Expected Outcomes/Goals: 1) Pt to receive adequate nutrition support within 7 days of NPO status 2) Pt diet to advance 3) Pt labs to improve 4) F/U in 2-3 days Plan discussed with: Other Critical Care Time(min): 30 GUSTAVO AVELAR MD Feb 26, 2024 10:35
[2024-02-26] MEDS: NOREPINEPHRINE 8 MG/250ML KIT 250 ML IV ONE (12:08)
[2024-02-26] MEDS: NOREPINEPHRINE 8 MG/250ML KIT 250 ML IV SCH (12:30)
--- NOTE | 2024-02-26 14:26 | DVHPN2 ---
Progress Note Date Seen: Feb 26, 2024 Medical Necessity Reason Pt with a Central, PICC or Fol: Yes The following are medically ne: Central Line, Barfield Catheter Reason for barfield catheter: Bladder Retention/Obstruc, Strict I&O Subjective Review of Systems: RESPIRATORY:Abnormal Other Systems: Patient seen and examined by myself today in follow-up, patient remained intubated on ventilator Patient examined hemodialysis, blood pressure stable Objective vital signs Vital Sign Date Time Temp Pulse Resp B/P (MAP) Pulse Ox O2 Delivery O2 Flow Rate FiO2 02/26/24 13:42 84 20 125/77 (93) 96 35 02/26/24 13:15 100.6 213.1 02/26/24 12:00 Mechanical Ventilator+ Total Intake and Output 02/25/24 02/25/24 02/26/24 15:00 23:00 07:00 Intake Total 510 ml 1128 ml 878.0 ml Output Total 250 ml 2250 ml 1725 ml Balance 260 ml -1122 ml -847.0 ml medications Current Medications Medications Dose Ordered Sig/Kishan Route Start Time Stop Time Status Last Admin Dose Admin Propofol 100 ml @ 2.7 mls/hr Q24H IV 02/19/24 14:45 02/19/24 14:45 2.7 MLS/HR Midazolam HCl 50 ml @ 1 mls/hr Q24H IV 02/19/24 17:15 02/26/24 05:50 10 MLS/HR Ondansetron HCl 4 mg Q4HP PRN IV 02/19/24 19:00 Enoxaparin Sodium 40 mg BID SC 02/19/24 22:00 UNV Nitroglycerin 0.4 mg Q5MINP PRN SL 02/19/24 19:00 Morphine Sulfate 2 mg Q30M PRN IV 02/19/24 19:00 Cefepime HCl 50 ml @ 12.5 mls/hr DAILY IV 02/20/24 10:00 UNV Phenylephrine HCl 250 ml @ 30 mls/hr Q8H20M IV 02/19/24 19:45 UNV Norepinephrine Bitartrate 32 mg/ Sodium Chloride 250 ml @ 0.938 mls/ hr Q24H IV 02/19/24 21:15 02/21/24 17:08 0.938 MLS/HR Fentanyl Citrate 250 ml @ 2.5 mls/hr Q24H IV 02/19/24 22:30 02/26/24 09:02 12.5 MLS/HR Dextrose 50 ml UD PRN IV 02/20/24 00:15 Cancel Calcium Gluconate/ Sodium Chloride 50 ml @ 100 mls/hr Q30M IV 02/20/24 08:15 02/20/24 09:14 Cancel Vancomycin HCl 0 ml @ 0 mls/hr UD IV 02/20/24 08:15 Pantoprazole Sodium 40 mg DAILY IV 02/20/24 10:00 02/26/24 09:42 40 MG Meropenem 50 ml @ 17 mls/hr Q12HR IV 02/20/24 10:00 02/26/24 09:41 17 MLS/HR Enteral Nutritional Formula 1,000 ml 40ML/HR NG 02/20/24 15:15 02/25/24 11:41 1,000 ML Amiodarone HCl 200 mg Q12HR PO 02/21/24 22:00 02/26/24 09:42 200 MG Vancomycin HCl 500 mg/Dextrose 100 ml @ 200 mls/hr Q24H IV 02/23/24 21:00 02/25/24 21:17 200 MLS/HR Heparin Sodium/ Dextrose 250 ml @ 19 mls/hr [id number] IV 02/24/24 12:45 02/26/24 01:57 19 MLS/HR Lactulose 30 ml BID PO 02/24/24 22:00 02/26/24 09:42 30 ML Iron Sucrose 110 ml @ 110 mls/hr DAILY@1200 IV 02/25/24 12:00 02/28/24 12:59 02/26/24 13:08 110 MLS/HR Dexmedetomidine HCl 400 mcg/ Dextrose 100 ml @ 3.97 mls/hr Q24H IV 02/26/24 04:00 02/26/24 10:28 3.97 MLS/HR Furosemide 40 mg BIDD IV 02/25/24 18:00 02/26/24 07:43 40 MG Diagnostic Test (Pha) 1 strip Q6HR 02/25/24 18:00 02/26/24 12:09 1 STRIP Insulin Human Regular Q6HR SC 02/25/24 18:00 Dextrose 50 ml UD PRN IV 02/25/24 15:00 Norepinephrine Bitartrate 250 ml @ 3.75 mls/hr Q24H IV 02/26/24 12:30 Examination: LUNGS:Normal, CVS:Normal, MSK:Normal laboratory and microbiology Laboratory Tests 02/26/24 03:10 Test 02/26/24 03:10 Range/Units Serum Glucose 142 H 74-106 mg/dL Microbiology Date/Time Source Procedure Growth Status 02/20/24 18:02 Urine - Catheterized Urine Culture - Final Complete 02/19/24 22:00 Nose MRSA Screen - Final Complete 02/19/24 17:40 Blood Blood Culture - Final NO GROWTH AFTER 5 DAYS OF INCUBATION. Complete 02/19/24 14:46 Sputum Gram Stain - Final Complete 02/19/24 14:46 Sputum Respiratory Culture - Final Complete Problem List/Assessment/Plan Problem List/Assessment/Plan Acute kidney injury superimposed Chronic Kidney Disease 4/ 5 secondary hemodynamic mediated, requiring intermittent hemodialysis Acute respiratory failure, intubated on ventilator Septic shock Obstructive uropathy Bilateral nephrolithiasis Right nephrostomy tube Congestive heart failure exacerbation Bilateral pneumonia Diabetes mellitus type 2 Hyperglycemia Iron-deficiency anemia Hyperphosphatemia Recommendations Continue with UF 2-3 L as tolerated Epogen 45320 IV post hemodialysis IV iron replacement Calcium acetate down NG tube IV antibiotics Urology consult We will continue to follow Plan discussed with: Other (Nurse) Dietary Evaluation Review Comments: 1) If GI is accessible consider Glucerna 1.2 @ 75 ml/hr goal rate as tolerated 2) If pt remains NPO >7 days consider TPN to meet at least 75% of estimated needs 3) Advance pt diet when medically feasible to a Renal Specific K2,Low Phos,SAM,2gmNa,80gPro diet (if not receiving dialysis) 4) Continue current plan of care Expected Outcomes/Goals: 1) Pt to receive adequate nutrition support within 7 days of NPO status 2) Pt diet to advance 3) Pt labs to improve 4) F/U in 2-3 days NICOLA CANALES MD Feb 26, 2024 14:26
--- NOTE | 2024-02-26 17:18 | DVHPNRES ---
Progress Note Date Seen: Feb 26, 2024 Resident Creating Document: FLORINA DE RESIDENT Medical Necessity Reason Pt with a Central, PICC or Fol: Yes The following are medically ne: Central Line, Barfield Catheter Reason for barfield catheter: Bladder Retention/Obstruc, Strict I&O Subjective Review of Systems HPI: 52/M PMH: HFrEF 30%, CKD stage 5 due to obstructive uropathy, diabetes mellitus type 2, Paroxysmal AFib on Eliquis and metoprolol, hypertension, pulmonary hypertension, BPH, anemia of chronic disease. Patient was brought to the hospital via EMS for worsening shortness of breath for past few days as per mother. As per mother patient was complaining having difficulty breathing which was progressively worsening that prompted her to call EMS.. Initially patient was on CPAP on arrival to EMS however patient was intubated in emergency department. After intubation patient blood pressure progressively worsening and patient had cardiac arrest with pea . Code blue was called, down time was 11 minutes and ROSC was achieved after 11 minutes of code blue. PSH: None as per mother. Home meds: Metoprolol succinate 50 mg daily, Eliquis 5 mg p.o. b.i.d., sevelamer carbonate 800 mg p.o. t.i.d., sodium bicarbonate 650 mg p.o. q.i.d., tamsulosin 0.4 mg p.o. q.a.m.,Amlodipine 10 mg p.o. daily. Social history: NAD Family history: NAD ROS: Review of systems not obtained as patient is intubated. Patient seen and examined in ICU. Patient underwent CPAP trial today, patient became tachypneic and oxygen saturation went down to 80s. Patient was continued back on a volume control ventilator setting. Patient continued to have temperature 100.1. Plan to do repeat respiratory, blood and urine culture. Continue with current antibiotics. Patient underwent dialysis without complication. Patient tolerated dialysis well without drop of blood pressure. Objective vital signs Vital Sign Date Time Temp Pulse Resp B/P (MAP) Pulse Ox O2 Delivery O2 Flow Rate FiO2 02/26/24 16:00 30 02/26/24 16:00 90 02/26/24 16:00 24 97 Mechanical Ventilator+ 02/26/24 15:35 120/73 (89) 02/26/24 15:15 100.9 213.6 Total Intake and Output 02/25/24 02/25/24 02/26/24 15:00 23:00 07:00 Intake Total 510 ml 1128 ml 878.0 ml Output Total 250 ml 2250 ml 1725 ml Balance 260 ml -1122 ml -847.0 ml medications Current Medications Medications Dose Ordered Sig/Kishan Route Start Time Stop Time Status Last Admin Dose Admin Propofol 100 ml @ 2.7 mls/hr Q24H IV 02/19/24 14:45 02/19/24 14:45 2.7 MLS/HR Midazolam HCl 50 ml @ 1 mls/hr Q24H IV 02/19/24 17:15 02/26/24 05:50 10 MLS/HR Ondansetron HCl 4 mg Q4HP PRN IV 02/19/24 19:00 Enoxaparin Sodium 40 mg BID SC 02/19/24 22:00 UNV Nitroglycerin 0.4 mg Q5MINP PRN SL 02/19/24 19:00 Morphine Sulfate 2 mg Q30M PRN IV 02/19/24 19:00 Cefepime HCl 50 ml @ 12.5 mls/hr DAILY IV 02/20/24 10:00 UNV Phenylephrine HCl 250 ml @ 30 mls/hr Q8H20M IV 02/19/24 19:45 UNV Norepinephrine Bitartrate 32 mg/ Sodium Chloride 250 ml @ 0.938 mls/ hr Q24H IV 02/19/24 21:15 02/21/24 17:08 0.938 MLS/HR Fentanyl Citrate 250 ml @ 2.5 mls/hr Q24H IV 02/19/24 22:30 02/26/24 09:02 12.5 MLS/HR Dextrose 50 ml UD PRN IV 02/20/24 00:15 Cancel Calcium Gluconate/ Sodium Chloride 50 ml @ 100 mls/hr Q30M IV 02/20/24 08:15 02/20/24 09:14 Cancel Vancomycin HCl 0 ml @ 0 mls/hr UD IV 02/20/24 08:15 Pantoprazole Sodium 40 mg DAILY IV 02/20/24 10:00 02/26/24 09:42 40 MG Meropenem 50 ml @ 17 mls/hr Q12HR IV 02/20/24 10:00 02/26/24 09:41 17 MLS/HR Enteral Nutritional Formula 1,000 ml 40ML/HR NG 02/20/24 15:15 02/25/24 11:41 1,000 ML Amiodarone HCl 200 mg Q12HR PO 02/21/24 22:00 02/26/24 09:42 200 MG Vancomycin HCl 500 mg/Dextrose 100 ml @ 200 mls/hr Q24H IV 02/23/24 21:00 02/25/24 21:17 200 MLS/HR Heparin Sodium/ Dextrose 250 ml @ 19 mls/hr [id number] IV 02/24/24 12:45 02/26/24 15:22 19 MLS/HR Lactulose 30 ml BID PO 02/24/24 22:00 02/26/24 09:42 30 ML Iron Sucrose 110 ml @ 110 mls/hr DAILY@1200 IV 02/25/24 12:00 02/28/24 12:59 02/26/24 13:08 110 MLS/HR Dexmedetomidine HCl 400 mcg/ Dextrose 100 ml @ 3.97 mls/hr Q24H IV 02/26/24 04:00 02/26/24 10:28 3.97 MLS/HR Furosemide 40 mg BIDD IV 02/25/24 18:00 02/26/24 07:43 40 MG Diagnostic Test (Pha) 1 strip Q6HR 02/25/24 18:00 02/26/24 12:09 1 STRIP Insulin Human Regular Q6HR SC 02/25/24 18:00 Dextrose 50 ml UD PRN IV 02/25/24 15:00 Norepinephrine Bitartrate 250 ml @ 3.75 mls/hr Q24H IV 02/26/24 12:30 Calcium Acetate 667 mg TID NG 02/26/24 22:00 Examination General Appearance: Sedated on mechanical ventilation. Head Exam: Normal inspection Neck Exam: Normal inspection. Non-tender. Normal alignment Pulmonary/Respiratory: Chest non-tender. Bilateral lungs crackles. Cardiovascular/Chest: Regular rate and rhythm. No murmurs. No JVD. Peripheral Pulses: 2+ Radial (R). 2+ Radial (L). 2+ Pedal (R). 2+ Pedal (L) Abdominal Exam: Normal bowel sounds. Soft. Nontender. No hepatospenomegaly. No masses Ankle Exam: Negative ankle edema Lower extremities: Negative lower extremity edema, Positive scrotal swelling Neuro/Mental Status: Sedated, RASS -3 laboratory and microbiology Laboratory Tests 02/26/24 03:10 Test 02/26/24 03:10 Range/Units Serum Glucose 142 H 74-106 mg/dL Microbiology Date/Time Source Procedure Growth Status 02/20/24 18:02 Urine - Catheterized Urine Culture - Final Complete 02/19/24 22:00 Nose MRSA Screen - Final Complete 02/19/24 17:40 Blood Blood Culture - Final NO GROWTH AFTER 5 DAYS OF INCUBATION. Complete 02/19/24 14:46 Sputum Gram Stain - Final Complete 02/19/24 14:46 Sputum Respiratory Culture - Final Complete Problem List/Assessment/Plan Problem List/Assessment/Plan NEUROLOGY Subacute versus chronic stroke -CT head(03/21/24):Small lower density in the anterior inferior left frontal lobe and in the anterior aspect of the left internal capsule which may be age- indeterminate or subacute to chronic infarcts. -neurology consultation Sedated on mechanical ventilation -on Versed , fentanyl , Precedex CARDIOVASCULAR Cardiac arrest SP ROSC -Coded on 02/19/24. Downtime 11 mintues. Septic shock due to Gram-positive/Gram-negative pneumonia, -Off vasopressor now. -IV Lasix 40 mg BID -IV antibiotic with meropenem and vancomycin -Discontinue steroids given hemodynamic stability with one pressor. -CT chest(03/21/24):CT scan of chest and abdomen:1. CHF/volume overload with mild cardiomegaly, small to moderate bilateral pleural effusions, interstitial pulmonary edema, diffuse body wall edema and mild ascites. 2. Patchy and confluent airspace consolidations in all 5 lobes which could reflect multifocal pneumonia and/or pulmonary edema. 3. Endotracheal , gastric tubes, and right IJ central venous catheter are in place as described. 4. Right posterior approach percutaneous nephrostomy tube in place. No hydronephrosis in either kidney. 5. Bilateral urothelial thickening and diffuse bladder wall thickening. Correlate with urinalysis for ascending infection and cystitis, respectively. 6. Nonobstructing bilateral renal calculi. 7. Moderate retained stool in the colon. -repeat blood, urine, sputum culture. NSTEMI type 2 likely due to above -continue current management of septic shock -cardiology: No origin coronary Angiography needed at this point -EKG: Sinus tachycardia with no ST elevation. Acute on chronic HFrEF( EF 30%) -ECHo(02/20):Severely reduced left ventricular systolic function with estimated ejection fraction 15% in a global fashion. -BNP(02/19/24):2390 -underwent dialysis(02/20/24): 2.7 L removed -Continue IV lasix 40 mg BID lactic acidosis due to septic shock:Resolved Afib with RVR -continue Heparin drip -Amiodarone 200 mg BID via GT tube. RESPIRATORY Acute hypoxic respiratory failure due to pneumonia -on ventilator: Volume control, respiratory rate 20, FiO2 400, FiO2 40%, peep 6: Titrating down PEEP slowly. -continue current management of septic shock -Off vasopressor. Failed CPAP trial -repeat in a.m.. Pulmonary edema -Repeat Chest xray in AM /KIDNEY YOMI due to VMN in setting of septic shock and CHF -Dialysis(02/20/24): 2.7 L removed -Continue monitor I/O -Nephrology on board: decided to do dialysis yesterday ? Acute cystitis -Continue antibiotics with meropenam and vancomycin Nonobstructing bilateral renal calculi with Right nephrostomy -Underwent bilateral nephrostomy ,currently has right nephrostomy tube. -nephrostomy tube patent Hyperkalemia; resolved GI Mild ascites -Continue monitor Constipation -PRN lactulose ENDO Uncontrolled diabetes mellitus type 2, HGB A1c 7.4 -initially patient was on insulin drip, discontinued given lower trend of glucose -moderate insulin sliding scale Hypocalcemia and hyperphosphatemia -continue with dialysis. LINES Right IJ (02/19/24) Left IJ Sravan cath(02/20/24) Chantal (02/19/24) Intubated (02/19/24) Barfield GT tube NUTRITION Nepro: , Target 40 ml/hr DVT Prophylaxis: heparin PUD prophylaxis: protonix. Code status discussed with mother greater than 22 minutes full code. Critical care time including cpap trial 82 minutes- including dw family Plan discussed with Dr Marina Plan discussed with: Other (Mother, RN) My Orders My Orders Orders - FLORINA DE RESIDENT Procedure Category Date Status Time Abg W/ Co-Ox RT 02/26/24 Logged 04:00 Norepinephrine 8 PHA 02/26/24 In Process Mg/250ml Kit 12:30 Respiratory Misc. RT 02/26/24 Transmitted Order 13:50 Cpap Trial For Am ORDERS 02/27/24 Transmitted 06:00 Dietary Evaluation Review Comments: 1) If GI is accessible consider Glucerna 1.2 @ 75 ml/hr goal rate as tolerated 2) If pt remains NPO >7 days consider TPN to meet at least 75% of estimated needs 3) Advance pt diet when medically feasible to a Renal Specific K2,Low Phos,SAM,2gmNa,80gPro diet (if not receiving dialysis) 4) Continue current plan of care Expected Outcomes/Goals: 1) Pt to receive adequate nutrition support within 7 days of NPO status 2) Pt diet to advance 3) Pt labs to improve 4) F/U in 2-3 days Date of Service: Feb 26, 2024 Billing Provider: MAXIMILIANO CUENCA MD Common Visit Codes: 19636-CHRDADOW CARE 30-74 MIN, 93016-AJDHALOP CARE-EACH +30MIN FLORINA DE RESIDENT Feb 26, 2024 17:18 MAXIMILIANO CUENCA MD Feb 27, 2024 11:08
--- NOTE | 2024-02-26 20:42 | DVH ---
CHEST RADIOGRAPH Indication:desaturation Technique: Single frontal view of the chest was obtained Comparison: XY CHEST XRAY 1 VIEW on DOS: 02/26/24, XY CHEST XRAY 1 VIEW on DOS: 02/25/24, XY CHEST XR AY 1 VIEW on DOS: 02/24/24 Findings/ IMPRESSION: Endotracheal tube projects terminating 2.7 cm superior to the claudio. Enteric tube projected coursing below the GE junction without visualization of the side port or catheter tip. Right IJ CVC projected terminate near the cavoatrial junction. Left IJ catheter with tip projected within the SVC. Bilatera l mid to lower lung zone opacification is concerning for multifocal pneumonia versus pleural effusion s. No pneumothorax.
[2024-02-26] MEDS: CALCIUM ACETATE 667 MG CAP NG SCH (21:00)
[2024-02-26] MEDS: EPOETIN ALFA-EPBX 10,000 UNIT/1ML VIAL SC ONE (21:03)
[2024-02-27] VITALS (108 sets, daily range): BP systolic 93–147; BP diastolic 50–84; PULSE 65–87; RESP 15–21; TEMP 94.5–99; O2SAT 84–100
[2024-02-27 03:59] LABS: Base Excess 1.9 mmol/L (-2.0-3.0)
[2024-02-27 04:31] LABS: Basophils # (auto) 0.1 10 ^3/uL (0-0.2); Basophils % (auto) 0.4 % (0.0-2.0); Eosinophils # (auto) 0.2 10 ^3/uL (0-0.8); Eosinophils % (auto) 1.1 % (0.0-7.0); Hematocrit 29.3 % (41.0-53.0); Hemoglobin 9.5 g/dL (13.5-17.5); Lymphocytes # (auto) 2.6 10 ^3/uL (0.4-5.4); Lymphocytes % (auto) 11.7 % (10.0-50.0); Mean Corpuscular Hemoglobin 29.2 pg (28.0-32.0); Mean Corpuscular Hgb Conc. 32.6 g/dL (32.0-36.0); Mean Corpuscular Volume 89.7 fL (80.0-100.0); Monocytes # (auto) 2.7 10 ^3/uL (0-1.3); Monocytes % (auto) 12.2 % (0.0-12.0); Neutrophils # (auto) 16.6 10 ^3/uL (1.6-8.6); Neutrophils % (auto) 74.6 % (37.0-80.0); Platelet Count (auto) 330 10^3/uL (140-450); Red Blood Cells 3.26 10^6/uL (4.5-5.90); Red Cell Distribution Width 15.5 % (11.8-14.3); White Blood Cell 22.2 10^3/uL (4.4-10.8)
[2024-02-27 04:42] LABS: Anion Gap 10 (5-15); Carbon Dioxide 27 mmol/L (20-31); Chloride 102 mmol/L (98-107); Potassium 3.7 mmol/L (3.5-5.1); Sodium 139 mmol/L (136-145)
[2024-02-27 04:43] LABS: Calcium 9.2 mg/dL (8.7-10.4)
--- NOTE | 2024-02-27 04:44 | DVH ---
CHEST RADIOGRAPH Indication:cardiac arrest Technique: Single frontal view of the chest was obtained COMPARISON: XY CHEST PORTABLE on DOS: 02/26/24, XY CHEST XRAY 1 VIEW on DOS: 02/26/24, XY CHEST XRAY 1 VIEW on DOS: 02/25/24 FINDINGS: Lines and Tubes: Endotracheal tube, right and left central venous catheter and enteric catheter in sa tisfactory position. Lungs: Patchy bilateral airspace disease or pulmonary vascular congestion, unchanged. Pleura: No effusion. No pneumothorax. Cardiomediastinal contours: Cardiomegaly Bones: Unremarkable IMPRESSION: Lines and tubes in satisfactory position. No significant interval change.
[2024-02-27 04:48] LABS: BUN/Creatinine Ratio 9.3 (10.0-20.0); Blood Urea Nitrogen 35 mg/dL (9-23); Glucose 99 mg/dL (74-106)
[2024-02-27 04:51] LABS: INR 1.18 (0.9-1.15); Prothrombin Time 12.4 sec (9.3-11.8)
[2024-02-27 04:57] LABS: Partial Thromboplastin Time 78.1 SEC (24.5-34.5)
[2024-02-27] MEDS: HEPARIN DRIP/D5W 100UNITS/ML 250 ML IV SCH ×2 (05:21→20:45)
[2024-02-27 08:00] LABS: Base Excess 1.9 mmol/L (-2.0-3.0)
--- NOTE | 2024-02-27 10:27 | DVHPNRES ---
Progress Note Date Seen: Feb 27, 2024 Resident Creating Document: FLORINA DE RESIDENT Medical Necessity Reason Pt with a Central, PICC or Fol: Yes The following are medically ne: Central Line, Barfield Catheter Reason for barfield catheter: Bladder Retention/Obstruc, Strict I&O Subjective Review of Systems HPI: 52/M PMH: HFrEF 30%, CKD stage 5 due to obstructive uropathy, diabetes mellitus type 2, Paroxysmal AFib on Eliquis and metoprolol, hypertension, pulmonary hypertension, BPH, anemia of chronic disease. Patient was brought to the hospital via EMS for worsening shortness of breath for past few days as per mother. As per mother patient was complaining having difficulty breathing which was progressively worsening that prompted her to call EMS.. Initially patient was on CPAP on arrival to EMS however patient was intubated in emergency department. After intubation patient blood pressure progressively worsening and patient had cardiac arrest with pea . Code blue was called, down time was 11 minutes and ROSC was achieved after 11 minutes of code blue. PSH: None as per mother. Home meds: Metoprolol succinate 50 mg daily, Eliquis 5 mg p.o. b.i.d., sevelamer carbonate 800 mg p.o. t.i.d., sodium bicarbonate 650 mg p.o. q.i.d., tamsulosin 0.4 mg p.o. q.a.m.,Amlodipine 10 mg p.o. daily. Social history: NAD Family history: NAD ROS: Review of systems not obtained as patient is intubated. Patient seen and examined in ICU. No plan for CPAP trial. Continue be on ventilation. Repeat respiratory, blood, urine culture. Continue with antibiotic. Patient goes into episodes of hypoxia lasted for 4-5 minutes, however ABG showed oxygen level 75.4. Repeat suction will be done. No any other complaints overnight. Objective vital signs Vital Sign Date Time Temp Pulse Resp B/P (MAP) Pulse Ox O2 Delivery O2 Flow Rate FiO2 02/27/24 08:12 73 20 109/68 (82) 100 40 02/27/24 08:00 Mechanical Ventilator+ 02/27/24 06:45 98.8 209.8 Total Intake and Output 02/26/24 02/26/24 02/27/24 15:00 23:00 07:00 Intake Total 372.0 ml 588.0 ml 486.0 ml Output Total 1300 ml 1825 ml Balance 372.0 ml -712.0 ml -1339.0 ml medications Current Medications Medications Dose Ordered Sig/Kishan Route Start Time Stop Time Status Last Admin Dose Admin Propofol 100 ml @ 2.7 mls/hr Q24H IV 02/19/24 14:45 02/19/24 14:45 2.7 MLS/HR Midazolam HCl 50 ml @ 1 mls/hr Q24H IV 02/19/24 17:15 02/27/24 08:03 7 MLS/HR Ondansetron HCl 4 mg Q4HP PRN IV 02/19/24 19:00 Enoxaparin Sodium 40 mg BID SC 02/19/24 22:00 UNV Nitroglycerin 0.4 mg Q5MINP PRN SL 02/19/24 19:00 Morphine Sulfate 2 mg Q30M PRN IV 02/19/24 19:00 Cefepime HCl 50 ml @ 12.5 mls/hr DAILY IV 02/20/24 10:00 UNV Phenylephrine HCl 250 ml @ 30 mls/hr Q8H20M IV 02/19/24 19:45 UNV Norepinephrine Bitartrate 32 mg/ Sodium Chloride 250 ml @ 0.938 mls/ hr Q24H IV 02/19/24 21:15 02/21/24 17:08 0.938 MLS/HR Fentanyl Citrate 250 ml @ 2.5 mls/hr Q24H IV 02/19/24 22:30 02/27/24 08:05 10 MLS/HR Dextrose 50 ml UD PRN IV 02/20/24 00:15 Cancel Calcium Gluconate/ Sodium Chloride 50 ml @ 100 mls/hr Q30M IV 02/20/24 08:15 02/20/24 09:14 Cancel Vancomycin HCl 0 ml @ 0 mls/hr UD IV 02/20/24 08:15 Pantoprazole Sodium 40 mg DAILY IV 02/20/24 10:00 02/26/24 09:42 40 MG Meropenem 50 ml @ 17 mls/hr Q12HR IV 02/20/24 10:00 02/26/24 21:56 17 MLS/HR Enteral Nutritional Formula 1,000 ml 40ML/HR NG 02/20/24 15:15 02/27/24 08:23 1,000 ML Amiodarone HCl 200 mg Q12HR PO 02/21/24 22:00 02/26/24 21:01 200 MG Vancomycin HCl 500 mg/Dextrose 100 ml @ 200 mls/hr Q24H IV 02/23/24 21:00 02/26/24 21:04 200 MLS/HR Lactulose 30 ml BID PO 02/24/24 22:00 02/26/24 09:42 30 ML Iron Sucrose 110 ml @ 110 mls/hr DAILY@1200 IV 02/25/24 12:00 02/28/24 12:59 02/26/24 13:08 110 MLS/HR Dexmedetomidine HCl 400 mcg/ Dextrose 100 ml @ 3.97 mls/hr Q24H IV 02/26/24 04:00 02/26/24 10:28 3.97 MLS/HR Furosemide 40 mg BIDD IV 02/25/24 18:00 02/27/24 05:38 40 MG Diagnostic Test (Pha) 1 strip Q6HR 02/25/24 18:00 02/27/24 05:38 1 STRIP Insulin Human Regular Q6HR SC 02/25/24 18:00 Dextrose 50 ml UD PRN IV 02/25/24 15:00 Norepinephrine Bitartrate 250 ml @ 3.75 mls/hr Q24H IV 02/26/24 12:30 Calcium Acetate 667 mg TID NG 02/26/24 22:00 02/27/24 05:37 667 MG Heparin Sodium/ Dextrose 250 ml @ 17 mls/hr [id number] IV 02/27/24 05:15 02/27/24 05:21 17 MLS/HR Examination General Appearance: Sedated on mechanical ventilation. Head Exam: Normal inspection Neck Exam: Normal inspection. Non-tender. Normal alignment Pulmonary/Respiratory: Chest non-tender. Bilateral lungs crackles. Cardiovascular/Chest: Regular rate and rhythm. No murmurs. No JVD. Peripheral Pulses: 2+ Radial (R). 2+ Radial (L). 2+ Pedal (R). 2+ Pedal (L) Abdominal Exam: Normal bowel sounds. Soft. Nontender. No hepatospenomegaly. No masses Ankle Exam: Negative ankle edema Lower extremities: Negative lower extremity edema, Positive scrotal swelling Neuro/Mental Status: Sedated, RASS -3 laboratory and microbiology Laboratory Tests 02/27/24 03:59 Test 02/27/24 03:59 Range/Units Serum Glucose 99 74-106 mg/dL Microbiology Date/Time Source Procedure Growth Status 02/20/24 18:02 Urine - Catheterized Urine Culture - Final Complete 02/19/24 22:00 Nose MRSA Screen - Final Complete 02/19/24 17:40 Blood Blood Culture - Final NO GROWTH AFTER 5 DAYS OF INCUBATION. Complete 02/19/24 14:46 Sputum Gram Stain - Final Complete 02/19/24 14:46 Sputum Respiratory Culture - Final Complete Problem List/Assessment/Plan Problem List/Assessment/Plan NEUROLOGY Subacute versus chronic stroke -CT head(03/21/24):Small lower density in the anterior inferior left frontal lobe and in the anterior aspect of the left internal capsule which may be age- indeterminate or subacute to chronic infarcts. -neurology consultation Sedated on mechanical ventilation -on Versed , fentanyl , Precedex CARDIOVASCULAR Cardiac arrest SP ROSC -Coded on 02/19/24. Downtime 11 minutes. Septic shock due to Gram-positive/Gram-negative pneumonia, -Off vasopressor now. -IV Lasix 40 mg BID -IV antibiotic with meropenem and vancomycin -Discontinue steroids given hemodynamic stability with one pressor. -CT chest(03/21/24):CT scan of chest and abdomen:1. CHF/volume overload with mild cardiomegaly, small to moderate bilateral pleural effusions, interstitial pulmonary edema, diffuse body wall edema and mild ascites. 2. Patchy and confluent airspace consolidations in all 5 lobes which could reflect multifocal pneumonia and/or pulmonary edema. 3. Endotracheal , gastric tubes, and right IJ central venous catheter are in place as described. 4. Right posterior approach percutaneous nephrostomy tube in place. No hydronephrosis in either kidney. 5. Bilateral urothelial thickening and diffuse bladder wall thickening. Correlate with urinalysis for ascending infection and cystitis, respectively. 6. Nonobstructing bilateral renal calculi. 7. Moderate retained stool in the colon. -repeat blood, urine, sputum culture. Pending NSTEMI type 2 likely due to above -continue current management of septic shock -cardiology: No origin coronary Angiography needed at this point -EKG: Sinus tachycardia with no ST elevation. Acute on chronic HFrEF( EF 30%) -ECHo(02/20):Severely reduced left ventricular systolic function with estimated ejection fraction 15% in a global fashion. -BNP(02/19/24):2390 -underwent dialysis(02/20/24): 2.7 L removed -Continue IV lasix 40 mg BID lactic acidosis due to septic shock:Resolved Afib with RVR: -continue Heparin drip -Amiodarone 200 mg BID via GT tube. RESPIRATORY Acute hypoxic respiratory failure due to pneumonia -on ventilator: Volume control, respiratory rate 20, FiO2 400, FiO2 40%, peep 6: Titrating down PEEP slowly. -continue current management of septic shock -Off vasopressor. -failed cpap trial yesterday Pulmonary edema -Repeat Chest xray in AM /KIDNEY YOMI due to VMN in setting of septic shock and CHF -On dialysis (Last on 02/26/24) -Continue monitor I/O -Nephrology on board ? Acute cystitis -Continue antibiotics with meropenam and vancomycin Nonobstructing bilateral renal calculi with Right nephrostomy -Underwent bilateral nephrostomy ,currently has right nephrostomy tube. -nephrostomy tube patent -repeat urine culture Hyperkalemia; resolved GI Mild ascites -Continue monitor Constipation -PRN lactulose ENDO Uncontrolled diabetes mellitus type 2, HGB A1c 7.4 -initially patient was on insulin drip, discontinued given lower trend of glucose -moderate insulin sliding scale Hypocalcemia and hyperphosphatemia -continue with dialysis. LINES Right IJ (02/19/24) Left IJ Sravan cath(02/20/24) [place] (02/19/24) Intubated (02/19/24) Barfield GT tube NUTRITION Nepro: , Target 40 ml/hr DVT Prophylaxis: heparin PUD prophylaxis: protonix. Code status discussed with mother greater than 22 minutes full code. Critical care time excluding procedures was > 83 minutes- including dw family Plan discussed with Dr Marina Plan discussed with: Other (RN) My Orders My Orders Orders - FLORINA DE RESIDENT Procedure Category Date Status Time Norepinephrine 8 PHA 02/26/24 In Process Mg/250ml Kit 12:30 Respiratory Misc. RT 02/26/24 Transmitted Order 13:50 Cpap Trial For Am ORDERS 02/27/24 Transmitted 06:00 Abg W/ Co-Ox RT 02/27/24 Logged 04:00 Chest Portable XY 02/26/24 Resulted 19:54 Abg W/ Co-Ox RT 02/26/24 Logged 19:54 Dietary Evaluation Review Comments: 1) If GI is accessible consider Glucerna 1.2 @ 75 ml/hr goal rate as tolerated 2) If pt remains NPO >7 days consider TPN to meet at least 75% of estimated needs 3) Advance pt diet when medically feasible to a Renal Specific K2,Low Phos,SAM,2gmNa,80gPro diet (if not receiving dialysis) 4) Continue current plan of care Expected Outcomes/Goals: 1) Pt to receive adequate nutrition support within 7 days of NPO status 2) Pt diet to advance 3) Pt labs to improve 4) F/U in 2-3 days Date of Service: Feb 27, 2024 Billing Provider: MAXIMILIANO CUENCA MD Common Visit Codes: [id number] CARE 30-74 MIN, [id number] CARE-EACH +30MIN FLORINA DE RESIDENT Feb 27, 2024 10:27 MAXIMILIANO CUENCA MD Feb 28, 2024 13:13
--- NOTE | 2024-02-27 10:35 | DVHPN2 ---
Progress Note - Dictate Date Seen: Feb 27, 2024 Medical Necessity Reason Pt with a Central, PICC or Fol: Yes The following are medically ne: Central Line, Barfield Catheter Reason for barfield catheter: Bladder Retention/Obstruc, Strict I&O Subjective Mr. Gilmore is a 40 years old left-handed gentleman with a history of hypertension, diabetes, congestive heart failure, chronic kidney disease, the patient was brought to the [place] campus on 02/19/2024 with a chief company of shortness breath, his CT brain scan showed evidence suggestive a stroke, I have seen and examined the patient, I discussed with his nurse, mother is in the room with him, he is intubated, sedated, he responds to light painful stimuli The pupils small, 3 mm, symmetric He did not tolerate CPAP yesterday He had desaturation spells earlier this morning Fentany 125 mcg/hour, Versed 8 mg/hour, heparin drip Blood culture, 02/19/2024: UDS, 02/19/2024: Negative ABG, 02/19/2024: metabolic and respiratory acidosis, 02/20/2024: Metabolic acidosis WBC/HB/PLT/MCV, 02/20/24: 25.1/10.2/418/90.8 PT/INR/PTT, 02/22/2024: 11.9/1.13/55.2, 02/24/2024: 11.7/1.1/47 BUN/CR, 02/19/2024: 74/5.35 GFR, 02/19/2024: 12 HGB A1c, 02/10/2024: 76 Glucose, 02/20/2024: 469, 468, 475, 437 Lactic acid, 02/19/2024: 4.2, three, two TBI/AST/ALT/AP, 02/20/2024: 0.5/46/59/163 Troponin one high sensitivity, 02/19/2024: 238, 652, 1010, 06/22/2023: 1886 Beta h hydroxybutyric acid, 02/20/2024: 0.116 TG/HDL/LDL/HDL, 01/2024, 125/193/121/52 EEG : Remarkably abnormal EEG Carotid Doppler, 02/22/2024: 1. No hemodynamically significant stenosis noted in the right carotid system. 2. Nonvisualized left carotid system due to overlying bandage material Chest, 02/19/2024: Bilateral pleural effusions CT head, 02/19/2024: 1. No acute intracranial hemorrhage or mass effect. 2. Mild nonspecific white matter disease which may be related to chronic small-vessel ischemia. 3. Small lower density in the anterior inferior left frontal lobe and in the anterior aspect of the left internal capsule which may be age- indeterminate or subacute to chronic infarcts. 4. Partially imaged dental caries and periapical lucencies in maxillary teeth CT head 02/21/2024: No acute intracranial abnormality. No significant interval change. vital signs Vital Sign Date Time Temp Pulse Resp B/P (MAP) Pulse Ox O2 Delivery O2 Flow Rate FiO2 02/27/24 10:17 70 20 113/74 (87) 100 40 02/27/24 08:00 Mechanical Ventilator+ 02/27/24 06:45 98.8 209.8 Total Intake and Output 02/26/24 02/26/24 02/27/24 15:00 23:00 07:00 Intake Total 372.0 ml 588.0 ml 486.0 ml Output Total 1300 ml 1825 ml Balance 372.0 ml -712.0 ml -1339.0 ml medications Current Medications Medications Dose Ordered Sig/Kishan Route Start Time Stop Time Status Last Admin Dose Admin Propofol 100 ml @ 2.7 mls/hr Q24H IV 02/19/24 14:45 02/19/24 14:45 2.7 MLS/HR Midazolam HCl 50 ml @ 1 mls/hr Q24H IV 02/19/24 17:15 02/27/24 08:03 7 MLS/HR Ondansetron HCl 4 mg Q4HP PRN IV 02/19/24 19:00 Enoxaparin Sodium 40 mg BID SC 02/19/24 22:00 UNV Nitroglycerin 0.4 mg Q5MINP PRN SL 02/19/24 19:00 Morphine Sulfate 2 mg Q30M PRN IV 02/19/24 19:00 Cefepime HCl 50 ml @ 12.5 mls/hr DAILY IV 02/20/24 10:00 UNV Phenylephrine HCl 250 ml @ 30 mls/hr Q8H20M IV 02/19/24 19:45 UNV Norepinephrine Bitartrate 32 mg/ Sodium Chloride 250 ml @ 0.938 mls/ hr Q24H IV 02/19/24 21:15 02/21/24 17:08 0.938 MLS/HR Fentanyl Citrate 250 ml @ 2.5 mls/hr Q24H IV 02/19/24 22:30 02/27/24 08:05 10 MLS/HR Dextrose 50 ml UD PRN IV 02/20/24 00:15 Cancel Calcium Gluconate/ Sodium Chloride 50 ml @ 100 mls/hr Q30M IV 02/20/24 08:15 02/20/24 09:14 Cancel Vancomycin HCl 0 ml @ 0 mls/hr UD IV 02/20/24 08:15 Pantoprazole Sodium 40 mg DAILY IV 02/20/24 10:00 02/27/24 10:26 40 MG Meropenem 50 ml @ 17 mls/hr Q12HR IV 02/20/24 10:00 02/27/24 10:27 17 MLS/HR Enteral Nutritional Formula 1,000 ml 40ML/HR NG 02/20/24 15:15 02/27/24 08:23 1,000 ML Amiodarone HCl 200 mg Q12HR PO 02/21/24 22:00 02/27/24 10:26 200 MG Vancomycin HCl 500 mg/Dextrose 100 ml @ 200 mls/hr Q24H IV 02/23/24 21:00 02/26/24 21:04 200 MLS/HR Lactulose 30 ml BID PO 02/24/24 22:00 02/26/24 09:42 30 ML Iron Sucrose 110 ml @ 110 mls/hr DAILY@1200 IV 02/25/24 12:00 02/28/24 12:59 02/26/24 13:08 110 MLS/HR Dexmedetomidine HCl 400 mcg/ Dextrose 100 ml @ 3.97 mls/hr Q24H IV 02/26/24 04:00 02/26/24 10:28 3.97 MLS/HR Furosemide 40 mg BIDD IV 02/25/24 18:00 02/27/24 05:38 40 MG Diagnostic Test (Pha) 1 strip Q6HR 02/25/24 18:00 02/27/24 05:38 1 STRIP Insulin Human Regular Q6HR SC 02/25/24 18:00 Dextrose 50 ml UD PRN IV 02/25/24 15:00 Norepinephrine Bitartrate 250 ml @ 3.75 mls/hr Q24H IV 02/26/24 12:30 Calcium Acetate 667 mg TID NG 02/26/24 22:00 02/27/24 05:37 667 MG Heparin Sodium/ Dextrose 250 ml @ 17 mls/hr [id number] IV 02/27/24 05:15 02/27/24 05:21 17 MLS/HR objective The patient is well-nourished and well-developed with no distress. The patient is intubated MENTAL STATUS: Subjective CRANIAL NERVES: Pupils are round, and slightly reactive. There are corneal reflexes and doll's eyes phenomenon. No signs of facial weakness. There are gagging or coughing reflexes SENSATION: No responses to pain stimuli. MOTOR: Normal tone in the upper and lower extremity. Normal muscle bulk. No fasciculations. No spontaneous movement. REFLEXES: Deep tendon reflexes are symmetrical. No pathological reflexes. CEREBELLAR/COORDINATION: Deferred GAIT/STATION: deferred. laboratory and microbiology Laboratory Tests 02/27/24 03:59 Test 02/27/24 03:59 Range/Units Serum Glucose 99 74-106 mg/dL Problem List Abnormal CT brain scan, to rule out stroke Coma Metabolic encephalopathy Hypoxic encephalopathy Toxic encephalopathy Cardiopulmonary arrest Acute respiratory failure Metabolic acidosis Respiratory acidosis Leukocytosis to rule out sepsis Shock liver Chronic kidney failure Paroxysmal AFib RVR Anisocoria, uncertain clinical significance Assessment/Plan Monitoring Supportive treatment Follow-up lab ICU care Respiratory support/vent management Stabilize vitals Oxygen Heparin drip GI prophylaxis Wean off sedation as tolerated More recommendation per clinical course This medical document was created using an electronic medical record system with [employer] dictation system. Although this document has been carefully reviewed, there may still be some phonetic and typographical errors. These areas are purely typographical due to imperfections of the software programs, and do not reflect any compromise in the patient's medical care Prognosis guarded Dietary Evaluation Review Comments: 1) If GI is accessible consider Glucerna 1.2 @ 75 ml/hr goal rate as tolerated 2) If pt remains NPO >7 days consider TPN to meet at least 75% of estimated needs 3) Advance pt diet when medically feasible to a Renal Specific K2,Low Phos,SAM,2gmNa,80gPro diet (if not receiving dialysis) 4) Continue current plan of care Expected Outcomes/Goals: 1) Pt to receive adequate nutrition support within 7 days of NPO status 2) Pt diet to advance 3) Pt labs to improve 4) F/U in 2-3 days Plan discussed with: Other GUSTAVO AVELAR MD Feb 27, 2024 10:35
[2024-02-27] MEDS ORDERED: POTASSIUM CHL 20MEQ/100ML 100 ML IV SCH (11:00)
[2024-02-27] MEDS ORDERED: BUMETANIDE INJECTION 25 MG in GIVE UN-DILUTED 0 ML IV SCH (11:00)
--- NOTE | 2024-02-27 11:37 | DVHPN2 ---
Progress Note Date Seen: Feb 27, 2024 Medical Necessity Reason Pt with a Central, PICC or Fol: Yes The following are medically ne: Central Line, Barfield Catheter Reason for barfield catheter: Bladder Retention/Obstruc, Strict I&O Subjective Review of Systems: RESPIRATORY:Abnormal Other Systems: Patient seen and examined by myself today in follow-up, patient remained intubated on ventilator Objective vital signs Vital Sign Date Time Temp Pulse Resp B/P (MAP) Pulse Ox O2 Delivery O2 Flow Rate FiO2 02/27/24 10:17 70 20 113/74 (87) 100 40 02/27/24 08:00 Mechanical Ventilator+ 02/27/24 06:45 98.8 209.8 Total Intake and Output 02/26/24 02/26/24 02/27/24 15:00 23:00 07:00 Intake Total 372.0 ml 588.0 ml 486.0 ml Output Total 1300 ml 1825 ml Balance 372.0 ml -712.0 ml -1339.0 ml medications Current Medications Medications Dose Ordered Sig/Kishan Route Start Time Stop Time Status Last Admin Dose Admin Propofol 100 ml @ 2.7 mls/hr Q24H IV 02/19/24 14:45 02/19/24 14:45 2.7 MLS/HR Midazolam HCl 50 ml @ 1 mls/hr Q24H IV 02/19/24 17:15 02/27/24 08:03 7 MLS/HR Ondansetron HCl 4 mg Q4HP PRN IV 02/19/24 19:00 Enoxaparin Sodium 40 mg BID SC 02/19/24 22:00 UNV Nitroglycerin 0.4 mg Q5MINP PRN SL 02/19/24 19:00 Morphine Sulfate 2 mg Q30M PRN IV 02/19/24 19:00 Cefepime HCl 50 ml @ 12.5 mls/hr DAILY IV 02/20/24 10:00 UNV Phenylephrine HCl 250 ml @ 30 mls/hr Q8H20M IV 02/19/24 19:45 UNV Norepinephrine Bitartrate 32 mg/ Sodium Chloride 250 ml @ 0.938 mls/ hr Q24H IV 02/19/24 21:15 02/21/24 17:08 0.938 MLS/HR Fentanyl Citrate 250 ml @ 2.5 mls/hr Q24H IV 02/19/24 22:30 02/27/24 08:05 10 MLS/HR Dextrose 50 ml UD PRN IV 02/20/24 00:15 Cancel Calcium Gluconate/ Sodium Chloride 50 ml @ 100 mls/hr Q30M IV 02/20/24 08:15 02/20/24 09:14 Cancel Vancomycin HCl 0 ml @ 0 mls/hr UD IV 02/20/24 08:15 Pantoprazole Sodium 40 mg DAILY IV 02/20/24 10:00 02/27/24 10:26 40 MG Meropenem 50 ml @ 17 mls/hr Q12HR IV 02/20/24 10:00 02/27/24 10:27 17 MLS/HR Enteral Nutritional Formula 1,000 ml 40ML/HR NG 02/20/24 15:15 02/27/24 08:23 1,000 ML Amiodarone HCl 200 mg Q12HR PO 02/21/24 22:00 02/27/24 10:26 200 MG Vancomycin HCl 500 mg/Dextrose 100 ml @ 200 mls/hr Q24H IV 02/23/24 21:00 02/26/24 21:04 200 MLS/HR Lactulose 30 ml BID PO 02/24/24 22:00 02/26/24 09:42 30 ML Iron Sucrose 110 ml @ 110 mls/hr DAILY@1200 IV 02/25/24 12:00 02/28/24 12:59 02/26/24 13:08 110 MLS/HR Dexmedetomidine HCl 400 mcg/ Dextrose 100 ml @ 3.97 mls/hr Q24H IV 02/26/24 04:00 02/26/24 10:28 3.97 MLS/HR Diagnostic Test (Pha) 1 strip Q6HR 02/25/24 18:00 02/27/24 05:38 1 STRIP Insulin Human Regular Q6HR SC 02/25/24 18:00 Dextrose 50 ml UD PRN IV 02/25/24 15:00 Norepinephrine Bitartrate 250 ml @ 3.75 mls/hr Q24H IV 02/26/24 12:30 Calcium Acetate 667 mg TID NG 02/26/24 22:00 02/27/24 05:37 667 MG Heparin Sodium/ Dextrose 250 ml @ 17 mls/hr [id number] IV 02/27/24 05:15 02/27/24 05:21 17 MLS/HR Examination: LUNGS:Normal, CVS:Normal, MSK:Normal laboratory and microbiology Laboratory Tests 02/27/24 03:59 Test 02/27/24 03:59 Range/Units Serum Glucose 99 74-106 mg/dL Microbiology Date/Time Source Procedure Growth Status 02/20/24 18:02 Urine - Catheterized Urine Culture - Final Complete 02/19/24 22:00 Nose MRSA Screen - Final Complete 02/19/24 17:40 Blood Blood Culture - Final NO GROWTH AFTER 5 DAYS OF INCUBATION. Complete 02/19/24 14:46 Sputum Gram Stain - Final Complete 02/19/24 14:46 Sputum Respiratory Culture - Final Complete Problem List/Assessment/Plan Problem List/Assessment/Plan Acute kidney injury superimposed Chronic Kidney Disease 4/ 5 secondary hemodynamic mediated, requiring intermittent hemodialysis Acute respiratory failure, intubated on ventilator Septic shock Obstructive uropathy Bilateral nephrolithiasis Right nephrostomy tube Congestive heart failure exacerbation Pneumonia Diabetes mellitus type 2 Hyperglycemia Iron-deficiency anemia Hyperphosphatemia Recommendations Hemodialysis tomorrow Epogen 52175 IV post hemodialysis IV iron replacement Calcium acetate down NG tube IV antibiotics Noted plan for bronchoscopy We will continue to follow Plan discussed with: Other (Nurse) My Orders My Orders Orders - NICOLA CANALES MD Procedure Category Date Status Time Calcium Acetate PHA 02/26/24 In Process Capsule (Phoslo 22:00 Dietary Evaluation Review Comments: 1) If GI is accessible consider Glucerna 1.2 @ 75 ml/hr goal rate as tolerated 2) If pt remains NPO >7 days consider TPN to meet at least 75% of estimated needs 3) Advance pt diet when medically feasible to a Renal Specific K2,Low Phos,SAM,2gmNa,80gPro diet (if not receiving dialysis) 4) Continue current plan of care Expected Outcomes/Goals: 1) Pt to receive adequate nutrition support within 7 days of NPO status 2) Pt diet to advance 3) Pt labs to improve 4) F/U in 2-3 days NICOLA CANALES MD Feb 27, 2024 11:37
[2024-02-27 12:36] LABS: INR 1.14 (0.9-1.15); Partial Thromboplastin Time 58.6 SEC (24.5-34.5)
--- NOTE | 2024-02-27 16:32 | DVHNC2 ---
ARGELIA JONES RESIDENT 02/27/24 1632: Procedure Note Procedure: Bronchoscopy, Therapeutic Indication: Mucous plugging Informed consent discussed w/: Yes Emergent procedure Patient or: No Procedure Summary: Bronchoscopy procedure note: Indications: Possible mucous plugging. Medicines: See AVIONICS TECHNICIAN notes. Complications: None Procedure: Patient medications and allergies reviewed. The risks and benefits of the procedure and the sedation options and risk were discussed with the patient's healthcare proxy. All questions were answered and informed consent was obtained. Patient identification and proposed procedure were verified prior to the procedure by the physician, and a nurse, and the respiratory therapist in ICU room. The heart rate, respiratory rate, oxygen saturations, blood pressure, adequacy of pulmonary ventilation, and response to care were monitored throughout the procedure. The physical status of the patient was reassessed after the procedure. After obtaining informed consent, the bronchoscope was introduced through the endotracheal tube and advanced into the trachea bronchial tree of both lungs. The procedure was accomplished without difficulty. The patient tolerated the procedure well. Findings: The trachea is in normal caliber. The claudio is sharp. The tracheobronchial tree of the right lung was examined to at least the first subsegmental level. The bronchial mucosa and anatomy in the right lung are normal. There are no endobronchial lesions. There was copious whitish secretions from right lower lobe bronchus onward throughout R6-R10. The left upper lobe, lingula, and left lower lobe were examined to at least the first subsegmental level. Bronchial mucosa and anatomy in the left upper lobe and lingula are normal. There were no endobronchial lesions. There was no secretions. There was copious secretions pooled in the posterior pharynx and these were removed. There was no active bleeding at the completion of the procedure. Estimated blood loss: Less than 5 mL. Impression: Right lower lobe atelectasis due to mucous plugging Mucous plugging from R6-R10 Therapeutic bronchoscopy Recommendation: Pulmonary toileting. Procedure codes: 04137, bronchoscopy, rigid and flexible, including fluoroscopic guidance, one performed; with bronchial endobronchial broncho-alveolar lavage, single or multiple sites MAXIMILIANO CUENCA MD 02/28/24 1635: Date of Service: Feb 27, 2024 Billing Provider: MAXIMILIANO CUENCA MD Common Visit Codes: PROCEDURE ONLY Procedure Codes: [id number] ARGELIA JONES RESIDENT Feb 27, 2024 16:32 MAXIMILIANO CUENCA MD Feb 28, 2024 16:35
[2024-02-27 19:06] LABS: INR 1.13 (0.9-1.15); Prothrombin Time 11.9 sec (9.3-11.8)
[2024-02-27 19:14] LABS: Partial Thromboplastin Time 77.6 SEC (24.5-34.5)
[2024-02-27] MEDS: EPOETIN ALFA-EPBX 10,000 UNIT/1ML VIAL SC ONE (21:00)
[2024-02-28] VITALS (108 sets, daily range): BP systolic 104–166; BP diastolic 58–97; PULSE 72–119; RESP 15–26; TEMP 98.2–100.4; O2SAT 97–100
[2024-02-28 02:06] LABS: Basophils # (auto) 0.2 10 ^3/uL (0-0.2); Basophils % (auto) 0.8 % (0.0-2.0); Eosinophils # (auto) 0.3 10 ^3/uL (0-0.8); Eosinophils % (auto) 1.5 % (0.0-7.0); Hematocrit 31.4 % (41.0-53.0); Hemoglobin 10.3 g/dL (13.5-17.5); Lymphocytes # (auto) 3.2 10 ^3/uL (0.4-5.4); Lymphocytes % (auto) 16.8 % (10.0-50.0); Mean Corpuscular Hemoglobin 29.4 pg (28.0-32.0); Mean Corpuscular Hgb Conc. 32.9 g/dL (32.0-36.0); Mean Corpuscular Volume 89.4 fL (80.0-100.0); Monocytes # (auto) 2.6 10 ^3/uL (0-1.3); Monocytes % (auto) 13.4 % (0.0-12.0); Neutrophils % (auto) 67.5 % (37.0-80.0); Nucleated Red Blood Cells % 0.1 %; Platelet Count (auto) 377 10^3/uL (140-450); Red Blood Cells 3.51 10^6/uL (4.5-5.90); Red Cell Distribution Width 15.7 % (11.8-14.3); White Blood Cell 19.3 10^3/uL (4.4-10.8)
[2024-02-28 02:13] LABS: Chloride 103 mmol/L (98-107); Potassium 3.8 mmol/L (3.5-5.1); Sodium 137 mmol/L (136-145)
[2024-02-28 02:14] LABS: Anion Gap 7 (5-15); Carbon Dioxide 27 mmol/L (20-31)
[2024-02-28 02:15] LABS: Calcium 9.2 mg/dL (8.7-10.4)
[2024-02-28 02:20] LABS: BUN/Creatinine Ratio 9.8 (10.0-20.0); Blood Urea Nitrogen 42 mg/dL (9-23); Glucose 112 mg/dL (74-106); INR 1.11 (0.9-1.15); Partial Thromboplastin Time 54.8 SEC (24.5-34.5); Prothrombin Time 11.7 sec (9.3-11.8)
--- NOTE | 2024-02-28 05:39 | DVH ---
CHEST RADIOGRAPH Indication:cardiac arrest Technique: Single frontal view of the chest was obtained Comparison: XY CHEST XRAY 1 VIEW on DOS: 02/27/24 FINDINGS: Lines and Tubes: The left central venous catheter terminates in the superior vena cava. Right centra l venous catheter terminates in the superior vena cava. The endotracheal tube terminates 6.9 cm above claudio. The enteric tube terminates in the stomach. Lungs: Bibasilar opacities, right greater than left similar to prior study. Pleura: No effusion. No pneumothorax. Cardiomediastinal contours: Magnified but stable in size. Bones: No acute osseous abnormality. IMPRESSION: 1. Stable position of the support lines and tubes. 2. Right mid to lower lung zone opacities and left basilar opacities, unchanged.
[2024-02-28 06:52] LABS: Base Excess 0.2 mmol/L (-2.0-3.0)
--- NOTE | 2024-02-28 10:12 | DVHPN2 ---
Progress Note Date Seen: Feb 28, 2024 Medical Necessity Reason Pt with a Central, PICC or Fol: Yes The following are medically ne: Central Line, Barfield Catheter Reason for barfield catheter: Bladder Retention/Obstruc, Strict I&O Subjective Review of Systems: RESPIRATORY:Abnormal Other Systems: Patient examined by myself in rounds today, he remains intubated on ventilator Patient examined on HD, BP stable Objective vital signs Vital Sign Date Time Temp Pulse Resp B/P (MAP) Pulse Ox O2 Delivery O2 Flow Rate FiO2 02/28/24 10:03 123/72 02/28/24 08:00 30 02/28/24 08:00 72 02/28/24 08:00 21 100 Mechanical Ventilator+ 02/28/24 06:45 98.8 209.8 Total Intake and Output 02/27/24 02/27/24 02/28/24 15:00 23:00 07:00 Intake Total 455 ml 857 ml 382.0 ml Output Total 1125 ml 1200 ml Balance 455 ml -268 ml -818.0 ml medications Current Medications Medications Dose Ordered Sig/Kishan Route Start Time Stop Time Status Last Admin Dose Admin Propofol 100 ml @ 2.7 mls/hr Q24H IV 02/19/24 14:45 02/19/24 14:45 2.7 MLS/HR Midazolam HCl 50 ml @ 1 mls/hr Q24H IV 02/19/24 17:15 02/28/24 10:03 8 MLS/HR Ondansetron HCl 4 mg Q4HP PRN IV 02/19/24 19:00 Enoxaparin Sodium 40 mg BID SC 02/19/24 22:00 UNV Nitroglycerin 0.4 mg Q5MINP PRN SL 02/19/24 19:00 Morphine Sulfate 2 mg Q30M PRN IV 02/19/24 19:00 Cefepime HCl 50 ml @ 12.5 mls/hr DAILY IV 02/20/24 10:00 UNV Phenylephrine HCl 250 ml @ 30 mls/hr Q8H20M IV 02/19/24 19:45 UNV Norepinephrine Bitartrate 32 mg/ Sodium Chloride 250 ml @ 0.938 mls/ hr Q24H IV 02/19/24 21:15 02/21/24 17:08 0.938 MLS/HR Fentanyl Citrate 250 ml @ 2.5 mls/hr Q24H IV 02/19/24 22:30 02/27/24 08:05 10 MLS/HR Dextrose 50 ml UD PRN IV 02/20/24 00:15 Cancel Calcium Gluconate/ Sodium Chloride 50 ml @ 100 mls/hr Q30M IV 02/20/24 08:15 02/20/24 09:14 Cancel Vancomycin HCl 0 ml @ 0 mls/hr UD IV 02/20/24 08:15 Pantoprazole Sodium 40 mg DAILY IV 02/20/24 10:00 02/28/24 10:03 40 MG Meropenem 50 ml @ 17 mls/hr Q12HR IV 02/20/24 10:00 02/27/24 21:58 17 MLS/HR Enteral Nutritional Formula 1,000 ml 40ML/HR NG 02/20/24 15:15 02/27/24 08:23 1,000 ML Amiodarone HCl 200 mg Q12HR PO 02/21/24 22:00 02/27/24 21:28 200 MG Vancomycin HCl 500 mg/Dextrose 100 ml @ 200 mls/hr Q24H IV 02/23/24 21:00 02/27/24 21:15 200 MLS/HR Lactulose 30 ml BID PO 02/24/24 22:00 02/27/24 21:28 30 ML Iron Sucrose 110 ml @ 110 mls/hr DAILY@1200 IV 02/25/24 12:00 02/28/24 12:59 02/27/24 12:55 110 MLS/HR Dexmedetomidine HCl 400 mcg/ Dextrose 100 ml @ 3.97 mls/hr Q24H IV 02/26/24 04:00 02/26/24 10:28 3.97 MLS/HR Diagnostic Test (Pha) 1 strip Q6HR 02/25/24 18:00 02/28/24 05:33 1 STRIP Insulin Human Regular Q6HR SC 02/25/24 18:00 Dextrose 50 ml UD PRN IV 02/25/24 15:00 Norepinephrine Bitartrate 250 ml @ 3.75 mls/hr Q24H IV 02/26/24 12:30 Calcium Acetate 667 mg TID NG 02/26/24 22:00 02/28/24 05:33 667 MG Heparin Sodium/ Dextrose 250 ml @ 15 mls/hr [id number] IV 02/27/24 20:45 02/28/24 10:02 15 MLS/HR Examination: LUNGS:Normal, CVS:Normal, MSK:Normal laboratory and microbiology Laboratory Tests 02/28/24 02:00 Test 02/28/24 02:00 Range/Units Serum Glucose 112 H 74-106 mg/dL Microbiology Date/Time Source Procedure Growth Status 02/26/24 14:18 Urine - Catheterized Urine Culture - Final Complete 02/26/24 12:00 Blood Blood Culture - Preliminary NO GROWTH AFTER 24 HOURS OF INCUBATION. Resulted 02/19/24 22:00 Nose MRSA Screen - Final Complete 02/19/24 14:46 Sputum Gram Stain - Final Complete 02/19/24 14:46 Sputum Respiratory Culture - Final Complete Problem List/Assessment/Plan Problem List/Assessment/Plan Acute kidney injury superimposed Chronic Kidney Disease 4/ 5 secondary hemodynamic mediated, requiring intermittent hemodialysis Acute respiratory failure, intubated on ventilator Septic shock Obstructive uropathy Bilateral nephrolithiasis Right nephrostomy tube Congestive heart failure exacerbation Pneumonia Diabetes mellitus type 2 Hyperglycemia Iron-deficiency anemia Hyperphosphatemia RLL atelectasis due to mucus plug s/p bronchoscopy 02/26 Recommendations Continue with UF 2 L as tolerated Epogen 57835 IV post hemodialysis IV iron replacement Calcium acetate down NG tube IV antibiotics We will continue to follow Plan discussed with: Other (nurse) My Orders My Orders Orders - NICOLA CANALES MD Procedure Category Date Status Time Hemodialysis Orders ORDERS 02/27/24 Transmitted 11:38 Dialysis Nursing [facility] 02/27/24 In Process Message 11:38 Document Fluid Input COURTNEY 02/27/24 In Process And Outpu 11:38 Dietary Evaluation Review Comments: 1) If GI is accessible consider Glucerna 1.2 @ 75 ml/hr goal rate as tolerated 2) If pt remains NPO >7 days consider TPN to meet at least 75% of estimated needs 3) Advance pt diet when medically feasible to a Renal Specific K2,Low Phos,SAM,2gmNa,80gPro diet (if not receiving dialysis) 4) Continue current plan of care Expected Outcomes/Goals: 1) Pt to receive adequate nutrition support within 7 days of NPO status 2) Pt diet to advance 3) Pt labs to improve 4) F/U in 2-3 days NICOLA CANALES MD Feb 28, 2024 10:12
--- NOTE | 2024-02-28 10:39 | DVHPN2 ---
Progress Note - Dictate Date Seen: Feb 28, 2024 Medical Necessity Reason Pt with a Central, PICC or Fol: Yes The following are medically ne: Central Line, Barfield Catheter Reason for barfield catheter: Bladder Retention/Obstruc, Strict I&O Subjective Mr. Gilmore is a 40 years old left-handed gentleman with a history of hypertension, diabetes, congestive heart failure, chronic kidney disease, the patient was brought to the [facility] on 02/19/2024 with a chief company of shortness breath, his CT brain scan showed evidence suggestive a stroke, I have seen and examined the patient, I discussed with his nurse, mother is in the room with him, he is intubated, sedated, he responds to painful stimuli He is going through hemodialysis Pupils are Small and symmetric Fentanyl 100 mcg/hour, Heparin drip Blood culture, 02/19/2024: UDS, 02/19/2024: Negative ABG, 02/19/2024: metabolic and respiratory acidosis, 02/20/2024: Metabolic acidosis WBC/HB/PLT/MCV, 02/20/24: 25.1/10.2/418/90.8 PT/INR/PTT, 02/22/2024: 11.9/1.13/55.2, 02/24/2024: 11.7/1.1/47 BUN/CR, 02/19/2024: 74/5.35 GFR, 02/19/2024: 12 HGB A1c, 02/10/2024: 76 Glucose, 02/20/2024: 469, 468, 475, 437 Lactic acid, 02/19/2024: 4.2, three, two TBI/AST/ALT/AP, 02/20/2024: 0.5/46/59/163 Troponin one high sensitivity, 02/19/2024: 238, 652, 1010, 06/22/2023: 1886 Beta h hydroxybutyric acid, 02/20/2024: 0.116 TG/HDL/LDL/HDL, 01/2024, 125/193/121/52 EEG : Remarkably abnormal EEG Carotid Doppler, 02/22/2024: 1. No hemodynamically significant stenosis noted in the right carotid system. 2. Nonvisualized left carotid system due to overlying bandage material Chest, 02/19/2024: Bilateral pleural effusions CT head, 02/19/2024: 1. No acute intracranial hemorrhage or mass effect. 2. Mild nonspecific white matter disease which may be related to chronic small-vessel ischemia. 3. Small lower density in the anterior inferior left frontal lobe and in the anterior aspect of the left internal capsule which may be age- indeterminate or subacute to chronic infarcts. 4. Partially imaged dental caries and periapical lucencies in maxillary teeth CT head 02/21/2024: No acute intracranial abnormality. No significant interval change. vital signs Vital Sign Date Time Temp Pulse Resp B/P (MAP) Pulse Ox O2 Delivery O2 Flow Rate FiO2 02/28/24 10:23 79 20 132/79 (96) 100 30 02/28/24 10:00 Mechanical Ventilator+ 02/28/24 06:45 98.8 209.8 Total Intake and Output 02/27/24 02/27/24 02/28/24 15:00 23:00 07:00 Intake Total 455 ml 857 ml 382.0 ml Output Total 1125 ml 1200 ml Balance 455 ml -268 ml -818.0 ml medications Current Medications Medications Dose Ordered Sig/Kishan Route Start Time Stop Time Status Last Admin Dose Admin Propofol 100 ml @ 2.7 mls/hr Q24H IV 02/19/24 14:45 02/19/24 14:45 2.7 MLS/HR Midazolam HCl 50 ml @ 1 mls/hr Q24H IV 02/19/24 17:15 02/28/24 10:03 8 MLS/HR Ondansetron HCl 4 mg Q4HP PRN IV 02/19/24 19:00 Enoxaparin Sodium 40 mg BID SC 02/19/24 22:00 UNV Nitroglycerin 0.4 mg Q5MINP PRN SL 02/19/24 19:00 Morphine Sulfate 2 mg Q30M PRN IV 02/19/24 19:00 Cefepime HCl 50 ml @ 12.5 mls/hr DAILY IV 02/20/24 10:00 UNV Phenylephrine HCl 250 ml @ 30 mls/hr Q8H20M IV 02/19/24 19:45 UNV Norepinephrine Bitartrate 32 mg/ Sodium Chloride 250 ml @ 0.938 mls/ hr Q24H IV 02/19/24 21:15 02/21/24 17:08 0.938 MLS/HR Fentanyl Citrate 250 ml @ 2.5 mls/hr Q24H IV 02/19/24 22:30 02/27/24 08:05 10 MLS/HR Dextrose 50 ml UD PRN IV 02/20/24 00:15 Cancel Calcium Gluconate/ Sodium Chloride 50 ml @ 100 mls/hr Q30M IV 02/20/24 08:15 02/20/24 09:14 Cancel Vancomycin HCl 0 ml @ 0 mls/hr UD IV 02/20/24 08:15 Pantoprazole Sodium 40 mg DAILY IV 02/20/24 10:00 02/28/24 10:03 40 MG Meropenem 50 ml @ 17 mls/hr Q12HR IV 02/20/24 10:00 02/27/24 21:58 17 MLS/HR Enteral Nutritional Formula 1,000 ml 40ML/HR NG 02/20/24 15:15 02/27/24 08:23 1,000 ML Amiodarone HCl 200 mg Q12HR PO 02/21/24 22:00 02/27/24 21:28 200 MG Vancomycin HCl 500 mg/Dextrose 100 ml @ 200 mls/hr Q24H IV 02/23/24 21:00 02/27/24 21:15 200 MLS/HR Lactulose 30 ml BID PO 02/24/24 22:00 02/27/24 21:28 30 ML Iron Sucrose 110 ml @ 110 mls/hr DAILY@1200 IV 02/25/24 12:00 02/28/24 12:59 02/27/24 12:55 110 MLS/HR Dexmedetomidine HCl 400 mcg/ Dextrose 100 ml @ 3.97 mls/hr Q24H IV 02/26/24 04:00 02/26/24 10:28 3.97 MLS/HR Diagnostic Test (Pha) 1 strip Q6HR 02/25/24 18:00 02/28/24 05:33 1 STRIP Insulin Human Regular Q6HR SC 02/25/24 18:00 Dextrose 50 ml UD PRN IV 02/25/24 15:00 Norepinephrine Bitartrate 250 ml @ 3.75 mls/hr Q24H IV 02/26/24 12:30 Calcium Acetate 667 mg TID NG 02/26/24 22:00 02/28/24 05:33 667 MG Heparin Sodium/ Dextrose 250 ml @ 15 mls/hr [id number] IV 02/27/24 20:45 02/28/24 10:02 15 MLS/HR objective The patient is well-nourished and well-developed with no distress. The patient is intubated MENTAL STATUS: Subjective CRANIAL NERVES: Pupils are round, and slightly reactive. There are corneal reflexes and doll's eyes phenomenon. No signs of facial weakness. There are gagging or coughing reflexes SENSATION: No responses to pain stimuli. MOTOR: Normal tone in the upper and lower extremity. Normal muscle bulk. No fasciculations. No spontaneous movement. REFLEXES: Deep tendon reflexes are symmetrical. No pathological reflexes. CEREBELLAR/COORDINATION: Deferred GAIT/STATION: deferred. laboratory and microbiology Laboratory Tests 02/28/24 02:00 Test 02/28/24 02:00 Range/Units Serum Glucose 112 H 74-106 mg/dL Problem List Abnormal CT brain scan, to rule out stroke Coma Metabolic encephalopathy Hypoxic encephalopathy Toxic encephalopathy Cardiopulmonary arrest Acute respiratory failure Metabolic acidosis Respiratory acidosis Leukocytosis to rule out sepsis Shock liver Chronic kidney failure Paroxysmal AFib RVR Anisocoria, uncertain clinical significance Assessment/Plan Monitoring Supportive treatment Follow-up lab ICU care Respiratory support/vent management Stabilize vitals Oxygen Heparin drip GI prophylaxis Wean off sedation as tolerated More recommendation per clinical course This medical document was created using an electronic medical record system with [employer] dictation system. Although this document has been carefully reviewed, there may still be some phonetic and typographical errors. These areas are purely typographical due to imperfections of the software programs, and do not reflect any compromise in the patient's medical care Prognosis guarded Dietary Evaluation Review Comments: 1) If GI is accessible consider Glucerna 1.2 @ 75 ml/hr goal rate as tolerated 2) If pt remains NPO >7 days consider TPN to meet at least 75% of estimated needs 3) Advance pt diet when medically feasible to a Renal Specific K2,Low Phos,SAM,2gmNa,80gPro diet (if not receiving dialysis) 4) Continue current plan of care Expected Outcomes/Goals: 1) Pt to receive adequate nutrition support within 7 days of NPO status 2) Pt diet to advance 3) Pt labs to improve 4) F/U in 2-3 days Plan discussed with: GUSTAVO Crocker MD Feb 28, 2024 10:39
[2024-02-28] MEDS: SODIUM CHL 0.9% 1000 ML BAG XX ONE (11:06)
[2024-02-28 11:27] LABS: INR 1.13 (0.9-1.15); Partial Thromboplastin Time 62.4 SEC (24.5-34.5); Prothrombin Time 11.9 sec (9.3-11.8)
--- NOTE | 2024-02-28 17:46 | DVHPNRES ---
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 Patient was brought to the hospital via EMS for worsening shortness of breath for past few days as per mother. As per mother patient was complaining having difficulty breathing which was progressively worsening that prompted her to call EMS.. Initially patient was on CPAP on arrival to EMS however patient was intubated in emergency department. After intubation patient blood pressure progressively worsening and patient had cardiac arrest with pea . Code blue was called, down time was 11 minutes and ROSC was achieved after 11 minutes of code blue. PSH: None as per mother. Home meds: Metoprolol succinate 50 mg daily, Eliquis 5 mg p.o. b.i.d., sevelamer carbonate 800 mg p.o. t.i.d., sodium bicarbonate 650 mg p.o. q.i.d., tamsulosin 0.4 mg p.o. q.a.m.,Amlodipine 10 mg p.o. daily. Social history: NAD Family history: NAD ROS: Review of systems not obtained as patient is intubated. Patient seen and examined in ICU. No plan for CPAP trial today. Continue be on ventilation. Repeat respiratory, blood, urine culture negative till now. Continue with antibiotic. No night time events. Underwent dialysis today. tolerated well. Continue feeding via G tube. Objective vital signs Vital Sign Date Time Temp Pulse Resp B/P (MAP) Pulse Ox O2 Delivery O2 Flow Rate FiO2 02/28/24 17:15 99.7 87 20 134/79 (97) 100 211.5 02/28/24 16:07 30 02/28/24 16:00 Mechanical Ventilator+ Total Intake and Output 02/27/24 02/27/24 02/28/24 15:00 23:00 07:00 Intake Total 455 ml 864.5 ml 413.0 ml Output Total 1125 ml 1200 ml Balance 455 ml -260.5 ml -787.0 ml medications Current Medications Medications Dose Ordered Sig/Kishan Route Start Time Stop Time Status Last Admin Dose Admin Propofol 100 ml @ 2.7 mls/hr Q24H IV 02/19/24 14:45 02/19/24 14:45 2.7 MLS/HR Midazolam HCl 50 ml @ 1 mls/hr Q24H IV 02/19/24 17:15 02/28/24 10:03 8 MLS/HR Ondansetron HCl 4 mg Q4HP PRN IV 02/19/24 19:00 Enoxaparin Sodium 40 mg BID SC 02/19/24 22:00 UNV Nitroglycerin 0.4 mg Q5MINP PRN SL 02/19/24 19:00 Morphine Sulfate 2 mg Q30M PRN IV 02/19/24 19:00 Cefepime HCl 50 ml @ 12.5 mls/hr DAILY IV 02/20/24 10:00 UNV Phenylephrine HCl 250 ml @ 30 mls/hr Q8H20M IV 02/19/24 19:45 UNV Norepinephrine Bitartrate 32 mg/ Sodium Chloride 250 ml @ 0.938 mls/ hr Q24H IV 02/19/24 21:15 02/21/24 17:08 0.938 MLS/HR Fentanyl Citrate 250 ml @ 2.5 mls/hr Q24H IV 02/19/24 22:30 02/27/24 08:05 10 MLS/HR Dextrose 50 ml UD PRN IV 02/20/24 00:15 Cancel Calcium Gluconate/ Sodium Chloride 50 ml @ 100 mls/hr Q30M IV 02/20/24 08:15 02/20/24 09:14 Cancel Vancomycin HCl 0 ml @ 0 mls/hr UD IV 02/20/24 08:15 Pantoprazole Sodium 40 mg DAILY IV 02/20/24 10:00 02/28/24 10:03 40 MG Meropenem 50 ml @ 17 mls/hr Q12HR IV 02/20/24 10:00 02/28/24 11:07 17 MLS/HR Enteral Nutritional Formula 1,000 ml 40ML/HR NG 02/20/24 15:15 02/27/24 08:23 1,000 ML Amiodarone HCl 200 mg Q12HR PO 02/21/24 22:00 02/28/24 11:29 200 MG Vancomycin HCl 500 mg/Dextrose 100 ml @ 200 mls/hr Q24H IV 02/23/24 21:00 02/27/24 21:15 200 MLS/HR Lactulose 30 ml BID PO 02/24/24 22:00 02/28/24 11:08 30 ML Dexmedetomidine HCl 400 mcg/ Dextrose 100 ml @ 3.97 mls/hr Q24H IV 02/26/24 04:00 02/26/24 10:28 3.97 MLS/HR Diagnostic Test (Pha) 1 strip Q6HR 02/25/24 18:00 02/28/24 12:59 1 STRIP Insulin Human Regular Q6HR SC 02/25/24 18:00 Dextrose 50 ml UD PRN IV 02/25/24 15:00 Norepinephrine Bitartrate 250 ml @ 3.75 mls/hr Q24H IV 02/26/24 12:30 Calcium Acetate 667 mg TID NG 02/26/24 22:00 02/28/24 15:17 667 MG Heparin Sodium/ Dextrose 250 ml @ 15 mls/hr [id number] IV 02/27/24 20:45 02/28/24 10:02 15 MLS/HR Examination General Appearance: Sedated on mechanical ventilation. Head Exam: Normal inspection Neck Exam: Normal inspection. Non-tender. Normal alignment Pulmonary/Respiratory: Chest non-tender. Bilateral lungs crackles. Cardiovascular/Chest: Regular rate and rhythm. No murmurs. No JVD. Peripheral Pulses: 2+ Radial (R). 2+ Radial (L). 2+ Pedal (R). 2+ Pedal (L) Abdominal Exam: Normal bowel sounds. Soft. Nontender. No hepatospenomegaly. No masses Ankle Exam: Negative ankle edema Lower extremities: Negative lower extremity edema, Positive scrotal swelling Neuro/Mental Status: Sedated, RASS -3 laboratory and microbiology Laboratory Tests 02/28/24 02:00 Test 02/28/24 02:00 Range/Units Serum Glucose 112 H 74-106 mg/dL Microbiology Date/Time Source Procedure Growth Status 02/26/24 14:18 Urine - Catheterized Urine Culture - Final Complete 02/26/24 12:00 Blood Blood Culture - Preliminary NO GROWTH AFTER 48 HOURS OF INCUBATION. Resulted 02/19/24 22:00 Nose MRSA Screen - Final Complete 02/19/24 14:46 Sputum Gram Stain - Final Complete 02/19/24 14:46 Sputum Respiratory Culture - Final Complete Problem List/Assessment/Plan Problem List/Assessment/Plan NEUROLOGY Subacute versus chronic stroke -CT head(03/21/24):Small lower density in the anterior inferior left frontal lobe and in the anterior aspect of the left internal capsule which may be age- indeterminate or subacute to chronic infarcts. -neurology consultation Sedated on mechanical ventilation -on Versed , fentanyl CARDIOVASCULAR Cardiac arrest SP ROSC -Coded on 02/19/24. Downtime 11 minutes. Septic shock due to Gram-positive/Gram-negative pneumonia, -Off vasopressor now. -IV Lasix 40 mg BID -IV antibiotic with meropenem and vancomycin -Discontinue steroids given hemodynamic stability with one pressor. -CT chest(03/21/24):CT scan of chest and abdomen:1. CHF/volume overload with mild cardiomegaly, small to moderate bilateral pleural effusions, interstitial pulmonary edema, diffuse body wall edema and mild ascites. 2. Patchy and confluent airspace consolidations in all 5 lobes which could reflect multifocal pneumonia and/or pulmonary edema. 3. Endotracheal , gastric tubes, and right IJ central venous catheter are in place as described. 4. Right posterior approach percutaneous nephrostomy tube in place. No hydronephrosis in either kidney. 5. Bilateral urothelial thickening and diffuse bladder wall thickening. Correlate with urinalysis for ascending infection and cystitis, respectively. 6. Nonobstructing bilateral renal calculi. 7. Moderate retained stool in the colon. -repeat blood, urine, sputum culture. Pending NSTEMI type 2 likely due to above -continue current management of septic shock -cardiology: No origin coronary Angiography needed at this point -EKG: Sinus tachycardia with no ST elevation. Acute on chronic HFrEF( EF 30%) -ECHo(02/20):Severely reduced left ventricular systolic function with estimated ejection fraction 15% in a global fashion. -BNP(02/19/24):2390 -underwent dialysis(02/28/24): 2 L removed -Continue IV lasix 40 mg BID lactic acidosis due to septic shock:Resolved Afib with RVR: -continue Heparin drip -Amiodarone 200 mg BID via GT tube. RESPIRATORY Acute hypoxic respiratory failure due to pneumonia -on ventilator: Volume control, respiratory rate 20, FiO2 400, FiO2 40%, peep 6: Titrating down PEEP slowly. -continue current management of septic shock -Off vasopressor. Pulmonary edema -Repeat Chest xray in AM /KIDNEY YOMI due to VMN in setting of septic shock and CHF -On dialysis (Last on 02/28/24) -Continue monitor I/O -Nephrology on board ? Acute cystitis -Continue antibiotics with meropenam and vancomycin Nonobstructing bilateral renal calculi with Right nephrostomy -Underwent bilateral nephrostomy ,currently has right nephrostomy tube. -nephrostomy tube patent -repeat urine culture Hyperkalemia; resolved GI Mild ascites -Continue monitor Constipation -PRN lactulose ENDO Uncontrolled diabetes mellitus type 2, HGB A1c 7.4 -initially patient was on insulin drip, discontinued given lower trend of glucose -moderate insulin sliding scale Hypocalcemia and hyperphosphatemia -continue with dialysis. LINES Right IJ (02/19/24): Plan to remove line tommorrow once picc line is inserted Left IJ Sravan cath(02/20/24) Chantal (02/19/24) Intubated (02/19/24) Barfield GT tube NUTRITION Nepro: , Target 40 ml/hr DVT Prophylaxis: heparin PUD prophylaxis: protonix. Code status discussed with mother greater than 22 minutes full code. Critical care time > 80 minutes- including dw family Plan discussed with Dr Marina Plan discussed with: Other (RN) My Orders My Orders Orders - FLORINA DE RESIDENT Procedure Category Date Status Time Abg W/ Co-Ox RT 02/28/24 Logged 05:17 * Picc Line Consult CONS 02/28/24 Transmitted 09:25 Dietary Evaluation Review Comments: 1) If GI is accessible consider Glucerna 1.2 @ 75 ml/hr goal rate as tolerated 2) If pt remains NPO >7 days consider TPN to meet at least 75% of estimated needs 3) Advance pt diet when medically feasible to a Renal Specific K2,Low Phos,SAM,2gmNa,80gPro diet (if not receiving dialysis) 4) Continue current plan of care Expected Outcomes/Goals: 1) Pt to receive adequate nutrition support within 7 days of NPO status 2) Pt diet to advance 3) Pt labs to improve 4) F/U in 2-3 days Date of Service: Feb 28, 2024 Billing Provider: MAXIMILIANO CUENCA MD Common Visit Codes: 26931-PPVWKYPT CARE 30-74 MIN, 46740-GHIFNASS CARE-EACH +30MIN FLORINA DE RESIDENT Feb 28, 2024 17:46 MAXIMILIANO CUENCA MD Mar 01, 2024 11:43
[2024-02-28 18:09] LABS: INR 1.21 (0.9-1.15); Partial Thromboplastin Time 62.6 SEC (24.5-34.5); Prothrombin Time 12.6 sec (9.3-11.8)
[2024-02-28] MEDS: EPOETIN ALFA-EPBX 10,000 UNIT/1ML VIAL IV ONE (21:09)
[2024-02-29] VITALS (107 sets, daily range): BP systolic 107–273; BP diastolic 61–260; PULSE 75–108; RESP 14–29; TEMP 98.8–99.9; O2SAT 86–100
[2024-02-29 03:52] LABS: Basophils # (auto) 0.2 10 ^3/uL (0-0.2); Basophils % (auto) 0.8 % (0.0-2.0); Eosinophils # (auto) 0.2 10 ^3/uL (0-0.8); Eosinophils % (auto) 0.8 % (0.0-7.0); Hematocrit 32.1 % (41.0-53.0); Hemoglobin 10.5 g/dL (13.5-17.5); Lymphocytes # (auto) 1.6 10 ^3/uL (0.4-5.4); Lymphocytes % (auto) 7.8 % (10.0-50.0); Mean Corpuscular Hemoglobin 29.1 pg (28.0-32.0); Mean Corpuscular Hgb Conc. 32.6 g/dL (32.0-36.0); Mean Corpuscular Volume 89.2 fL (80.0-100.0); Monocytes # (auto) 2.2 10 ^3/uL (0-1.3); Monocytes % (auto) 10.8 % (0.0-12.0); Neutrophils % (auto) 79.8 % (37.0-80.0); Nucleated Red Blood Cells % 0.1 %; Platelet Count (auto) 374 10^3/uL (140-450); Red Cell Distribution Width 15.6 % (11.8-14.3); White Blood Cell 20.1 10^3/uL (4.4-10.8)
[2024-02-29 04:00] LABS: Anion Gap 10 (5-15); Carbon Dioxide 27 mmol/L (20-31); Chloride 101 mmol/L (98-107); Potassium 3.5 mmol/L (3.5-5.1); Sodium 138 mmol/L (136-145)
[2024-02-29 04:02] LABS: Calcium 9.1 mg/dL (8.7-10.4)
[2024-02-29 04:06] LABS: BUN/Creatinine Ratio 9.9 (10.0-20.0); Blood Urea Nitrogen 35 mg/dL (9-23); Glucose 133 mg/dL (74-106)
--- NOTE | 2024-02-29 04:09 | DVH ---
CHEST RADIOGRAPH Indication:on vent Technique: Single frontal view of the chest was obtained Comparison: XY CHEST XRAY 1 VIEW on DOS: 02/28/24, XY CHEST XRAY 1 VIEW on DOS: 02/27/24, XY CHEST PO RTABLE on DOS: 02/26/24, XY CHEST XRAY 1 VIEW on DOS: 02/26/24, XY CHEST XRAY 1 VIEW on DOS: 02/25/24 , XY CHEST XRAY 1 VIEW on DOS: 02/28/24 FINDINGS: Lines and Tubes: The left central venous catheter terminates in the superior vena cava. Right centra l venous catheter terminates in the superior vena cava. The endotracheal tube terminates 6.9 cm above claudio. The enteric tube terminates in the stomach. Lungs: Bibasilar opacities, right greater than left similar to prior study. Pleura: No effusion. No pneumothorax. Cardiomediastinal contours: Magnified but stable in size. Bones: No acute osseous abnormality. IMPRESSION: 1. Stable position of the support lines and tubes. 2. Right mid to lower lung zone opacities and left basilar opacities, unchanged.
[2024-02-29 04:28] LABS: INR 1.15 (0.9-1.15); Partial Thromboplastin Time 52.8 SEC (24.5-34.5); Prothrombin Time 12.1 sec (9.3-11.8)
[2024-02-29 07:16] LABS: Base Excess 1.5 mmol/L (-2.0-3.0)
[2024-02-29] MEDS: LIDOCAINE 1% (LOCAL ANESTH.) PF 5ml SDV ID ONE (10:34)
--- NOTE | 2024-02-29 10:50 | DVH ---
CLINICAL INDICATION: S/P RIGHT LOWER EXTREMITY PICC LINE PLACEMENT TECHNIQUE: 1 XY R FEMUR XRAY Comparison: None FINDINGS/IMPRESSION: There is no evidence of acute fracture or dislocation. Soft tissues are unremarkable. Right lower extremity PICC line overlies the IVC. Vascular atherosclerotic calcifications are present. Temperature rectal probe in-situ.
--- NOTE | 2024-02-29 10:52 | DVH ---
Exam: XY KUB ABDOMEN SINGLE VIEW Indication: S/P RIGHT LOWER EXTREMITY PICC LINE PLACEMENT Comparison: None Technique: 1 radiographic views of the abdomen. Findings: Right nephrostomy in-situ. Right lower extremity PICC line overlies the inferior vena cava. Nonobstructive bowel gas pattern noted. There is no definite evidence for pneumoperitoneum. No abnormal calcifications noted. Impression: Nonobstructive bowel gas pattern noted.
--- NOTE | 2024-02-29 12:30 | DVHPN2 ---
Progress Note - Dictate Date Seen: Feb 29, 2024 Medical Necessity Reason Pt with a Central, PICC or Fol: Yes The following are medically ne: Central Line, Barfield Catheter Reason for barfield catheter: Bladder Retention/Obstruc, Strict I&O Subjective remains intubated, no overnight events vital signs Vital Sign Date Time Temp Pulse Resp B/P (MAP) Pulse Ox O2 Delivery O2 Flow Rate FiO2 02/29/24 12:23 80 21 142/70 (94) 100 30 02/29/24 11:30 99.1 210.4 02/29/24 10:00 Mechanical Ventilator+ Total Intake and Output 02/28/24 02/28/24 02/29/24 15:00 23:00 07:00 Intake Total 345 ml 918 ml 745.5 ml Output Total 355 ml 425 ml Balance 345 ml 563 ml 320.5 ml medications Current Medications Medications Dose Ordered Sig/Kishan Route Start Time Stop Time Status Last Admin Dose Admin Propofol 100 ml @ 2.7 mls/hr Q24H IV 02/19/24 14:45 02/19/24 14:45 2.7 MLS/HR Midazolam HCl 50 ml @ 1 mls/hr Q24H IV 02/19/24 17:15 02/29/24 08:43 9 MLS/HR Ondansetron HCl 4 mg Q4HP PRN IV 02/19/24 19:00 Enoxaparin Sodium 40 mg BID SC 02/19/24 22:00 UNV Nitroglycerin 0.4 mg Q5MINP PRN SL 02/19/24 19:00 Cefepime HCl 50 ml @ 12.5 mls/hr DAILY IV 02/20/24 10:00 UNV Phenylephrine HCl 250 ml @ 30 mls/hr Q8H20M IV 02/19/24 19:45 UNV Norepinephrine Bitartrate 32 mg/ Sodium Chloride 250 ml @ 0.938 mls/ hr Q24H IV 02/19/24 21:15 02/21/24 17:08 0.938 MLS/HR Fentanyl Citrate 250 ml @ 2.5 mls/hr Q24H IV 02/19/24 22:30 02/28/24 22:14 10 MLS/HR Dextrose 50 ml UD PRN IV 02/20/24 00:15 Cancel Calcium Gluconate/ Sodium Chloride 50 ml @ 100 mls/hr Q30M IV 02/20/24 08:15 02/20/24 09:14 Cancel Vancomycin HCl 0 ml @ 0 mls/hr UD IV 02/20/24 08:15 Pantoprazole Sodium 40 mg DAILY IV 02/20/24 10:00 02/29/24 10:44 40 MG Meropenem 50 ml @ 17 mls/hr Q12HR IV 02/20/24 10:00 02/29/24 10:45 17 MLS/HR Enteral Nutritional Formula 1,000 ml 40ML/HR NG 02/20/24 15:15 02/27/24 08:23 1,000 ML Amiodarone HCl 200 mg Q12HR PO 02/21/24 22:00 02/29/24 10:44 200 MG Vancomycin HCl 500 mg/Dextrose 100 ml @ 200 mls/hr Q24H IV 02/23/24 21:00 02/28/24 21:08 200 MLS/HR Dexmedetomidine HCl 400 mcg/ Dextrose 100 ml @ 3.97 mls/hr Q24H IV 02/26/24 04:00 02/26/24 10:28 3.97 MLS/HR Diagnostic Test (Pha) 1 strip Q6HR 02/25/24 18:00 02/29/24 05:54 1 STRIP Insulin Human Regular Q6HR SC 02/25/24 18:00 Dextrose 50 ml UD PRN IV 02/25/24 15:00 Norepinephrine Bitartrate 250 ml @ 3.75 mls/hr Q24H IV 02/26/24 12:30 Calcium Acetate 667 mg TID NG 02/26/24 22:00 02/29/24 05:54 667 MG Heparin Sodium/ Dextrose 250 ml @ 15 mls/hr [id number] IV 02/27/24 20:45 02/29/24 03:00 15 MLS/HR Sodium Chloride 10 ml QSHIFT@10,22 IV 02/29/24 22:00 objective gen: intubated lungs: occ ronchi cvs: no rub exT: trace edema laboratory and microbiology Laboratory Tests 02/29/24 03:00 Test 02/29/24 03:00 Range/Units Serum Glucose 133 H 74-106 mg/dL Assessment/Plan Acute kidney injury superimposed Chronic Kidney Disease 4/ 5 secondary hemodynamic mediated, requiring intermittent hemodialysis Acute respiratory failure, intubated on ventilator Septic shock Obstructive uropathy Bilateral nephrolithiasis Right nephrostomy tube Congestive heart failure exacerbation Pneumonia Diabetes mellitus type 2 Hyperglycemia Iron-deficiency anemia Hyperphosphatemia RLL atelectasis due to mucus plug s/p bronchoscopy 02/26 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, metabolic parameters acceptable Dietary Evaluation Review Comments: 1) If GI is accessible consider Glucerna 1.2 @ 75 ml/hr goal rate as tolerated 2) If pt remains NPO >7 days consider TPN to meet at least 75% of estimated needs 3) Advance pt diet when medically feasible to a Renal Specific K2,Low Phos,SAM,2gmNa,80gPro diet (if not receiving dialysis) 4) Continue current plan of care Expected Outcomes/Goals: 1) Pt to receive adequate nutrition support within 7 days of NPO status 2) Pt diet to advance 3) Pt labs to improve 4) F/U in 2-3 days Plan discussed with: MARIELOS Salinas MD Feb 29, 2024 12:30
--- NOTE | 2024-02-29 15:43 | DVHPNRES ---
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 Patient was brought to the hospital via EMS for worsening shortness of breath for past few days as per mother. As per mother patient was complaining having difficulty breathing which was progressively worsening that prompted her to call EMS.. Initially patient was on CPAP on arrival to EMS however patient was intubated in emergency department. After intubation patient blood pressure progressively worsening and patient had cardiac arrest with pea . Code blue was called, down time was 11 minutes and ROSC was achieved after 11 minutes of code blue. PSH: None as per mother. Home meds: Metoprolol succinate 50 mg daily, Eliquis 5 mg p.o. b.i.d., sevelamer carbonate 800 mg p.o. t.i.d., sodium bicarbonate 650 mg p.o. q.i.d., tamsulosin 0.4 mg p.o. q.a.m.,Amlodipine 10 mg p.o. daily. Social history: NAD Family history: NAD ROS: Review of systems not obtained as patient is intubated. Patient seen and examined in ICU. No plan for CPAP trial today. Continue be on ventilation. Repeat respiratory, blood, urine culture negative till now. Continue with antibiotic. No night time events. Right IJ central line was removed , insertion of PICC line was done. No other complaints. Patient continued to have spikes of fever. Continued to be on same ventilator setting, tolerating feeding. Regular bowel movements. Objective vital signs Vital Sign Date Time Temp Pulse Resp B/P (MAP) Pulse Ox O2 Delivery O2 Flow Rate FiO2 02/29/24 14:32 80 20 149/75 (99) 100 30 02/29/24 14:30 99.3 210.7 02/29/24 14:00 Mechanical Ventilator+ Total Intake and Output 02/28/24 02/28/24 02/29/24 15:00 23:00 07:00 Intake Total 345 ml 918 ml 745.5 ml Output Total 355 ml 425 ml Balance 345 ml 563 ml 320.5 ml medications Current Medications Medications Dose Ordered Sig/Kishan Route Start Time Stop Time Status Last Admin Dose Admin Propofol 100 ml @ 2.7 mls/hr Q24H IV 02/19/24 14:45 02/19/24 14:45 2.7 MLS/HR Midazolam HCl 50 ml @ 1 mls/hr Q24H IV 02/19/24 17:15 02/29/24 08:43 9 MLS/HR Ondansetron HCl 4 mg Q4HP PRN IV 02/19/24 19:00 Enoxaparin Sodium 40 mg BID SC 02/19/24 22:00 UNV Nitroglycerin 0.4 mg Q5MINP PRN SL 02/19/24 19:00 Cefepime HCl 50 ml @ 12.5 mls/hr DAILY IV 02/20/24 10:00 UNV Phenylephrine HCl 250 ml @ 30 mls/hr Q8H20M IV 02/19/24 19:45 UNV Norepinephrine Bitartrate 32 mg/ Sodium Chloride 250 ml @ 0.938 mls/ hr Q24H IV 02/19/24 21:15 02/21/24 17:08 0.938 MLS/HR Fentanyl Citrate 250 ml @ 2.5 mls/hr Q24H IV 02/19/24 22:30 02/28/24 22:14 10 MLS/HR Dextrose 50 ml UD PRN IV 02/20/24 00:15 Cancel Calcium Gluconate/ Sodium Chloride 50 ml @ 100 mls/hr Q30M IV 02/20/24 08:15 02/20/24 09:14 Cancel Vancomycin HCl 0 ml @ 0 mls/hr UD IV 02/20/24 08:15 Pantoprazole Sodium 40 mg DAILY IV 02/20/24 10:00 02/29/24 10:44 40 MG Meropenem 50 ml @ 17 mls/hr Q12HR IV 02/20/24 10:00 02/29/24 10:45 17 MLS/HR Enteral Nutritional Formula 1,000 ml 40ML/HR NG 02/20/24 15:15 02/27/24 08:23 1,000 ML Amiodarone HCl 200 mg Q12HR PO 02/21/24 22:00 02/29/24 10:44 200 MG Vancomycin HCl 500 mg/Dextrose 100 ml @ 200 mls/hr Q24H IV 02/23/24 21:00 02/28/24 21:08 200 MLS/HR Dexmedetomidine HCl 400 mcg/ Dextrose 100 ml @ 3.97 mls/hr Q24H IV 02/26/24 04:00 02/26/24 10:28 3.97 MLS/HR Diagnostic Test (Pha) 1 strip Q6HR 02/25/24 18:00 02/29/24 12:36 1 STRIP Insulin Human Regular Q6HR SC 02/25/24 18:00 Dextrose 50 ml UD PRN IV 02/25/24 15:00 Norepinephrine Bitartrate 250 ml @ 3.75 mls/hr Q24H IV 02/26/24 12:30 Calcium Acetate 667 mg TID NG 02/26/24 22:00 02/29/24 05:54 667 MG Heparin Sodium/ Dextrose 250 ml @ 15 mls/hr [id number] IV 02/27/24 20:45 02/29/24 03:00 15 MLS/HR Sodium Chloride 10 ml QSHIFT@10,22 IV 02/29/24 22:00 Examination General Appearance: Sedated on mechanical ventilation. Head Exam: Normal inspection Neck Exam: Normal inspection. Non-tender. Normal alignment Pulmonary/Respiratory: Chest non-tender. Bilateral lungs crackles. Cardiovascular/Chest: Regular rate and rhythm. No murmurs. No JVD. Peripheral Pulses: 2+ Radial (R). 2+ Radial (L). 2+ Pedal (R). 2+ Pedal (L) Abdominal Exam: Normal bowel sounds. Soft. Nontender. No hepatospenomegaly. No masses Ankle Exam: Negative ankle edema Lower extremities: Negative lower extremity edema, Positive scrotal swelling Neuro/Mental Status: Sedated, RASS -3 laboratory and microbiology Laboratory Tests 02/29/24 03:00 Test 02/29/24 03:00 Range/Units Serum Glucose 133 H 74-106 mg/dL Microbiology Date/Time Source Procedure Growth Status 02/26/24 14:18 Urine - Catheterized Urine Culture - Final Complete 02/26/24 12:00 Blood Blood Culture - Preliminary NO GROWTH AFTER 72 HOURS OF INCUBATION. Resulted 02/19/24 22:00 Nose MRSA Screen - Final Complete 02/19/24 14:46 Sputum Gram Stain - Final Complete 02/19/24 14:46 Sputum Respiratory Culture - Final Complete Problem List/Assessment/Plan Problem List/Assessment/Plan NEUROLOGY Subacute versus chronic stroke -CT head(03/21/24):Small lower density in the anterior inferior left frontal lobe and in the anterior aspect of the left internal capsule which may be age- indeterminate or subacute to chronic infarcts. -neurology consultation Sedated on mechanical ventilation -on Versed , fentanyl CARDIOVASCULAR Cardiac arrest SP ROSC -Coded on 02/19/24. Downtime 11 minutes. Septic shock due to Gram-positive/Gram-negative pneumonia, -Off vasopressor now. -IV antibiotic with meropenem and vancomycin -Discontinue steroids given hemodynamic stability with one pressor. -CT chest(03/21/24):CT scan of chest and abdomen:1. CHF/volume overload with mild cardiomegaly, small to moderate bilateral pleural effusions, interstitial pulmonary edema, diffuse body wall edema and mild ascites. 2. Patchy and confluent airspace consolidations in all 5 lobes which could reflect multifocal pneumonia and/or pulmonary edema. 3. Endotracheal , gastric tubes, and right IJ central venous catheter are in place as described. 4. Right posterior approach percutaneous nephrostomy tube in place. No hydronephrosis in either kidney. 5. Bilateral urothelial thickening and diffuse bladder wall thickening. Correlate with urinalysis for ascending infection and cystitis, respectively. 6. Nonobstructing bilateral renal calculi. 7. Moderate retained stool in the colon. -repeat blood, urine, sputum culture. Negative T allow. NSTEMI type 2 likely due to above -continue current management of septic shock -cardiology: No origin coronary Angiography needed at this point -EKG: Sinus tachycardia with no ST elevation. Acute on chronic HFrEF( EF 30%) -ECHo(02/20):Severely reduced left ventricular systolic function with estimated ejection fraction 15% in a global fashion. -BNP(02/19/24):2390 -underwent dialysis(02/28/24): 2 L removed lactic acidosis due to septic shock:Resolved Afib with RVR: Rate controlled. -continue Heparin drip -Amiodarone 200 mg BID via GT tube. RESPIRATORY Acute hypoxic respiratory failure due to pneumonia -on ventilator: Volume control, respiratory rate 20, FiO2 400, FiO2 40%, peep 6: Titrating down PEEP slowly. -continue current management of septic shock -Off vasopressor. Pulmonary edema -Repeat Chest xray in AM /KIDNEY YOMI due to VMN in setting of septic shock and CHF -On dialysis (Last on 02/28/24) -Continue monitor I/O -Nephrology on board ? Acute cystitis -Continue antibiotics with meropenam and vancomycin Nonobstructing bilateral renal calculi with Right nephrostomy -Underwent bilateral nephrostomy ,currently has right nephrostomy tube. -nephrostomy tube patent -repeat urine culture Hyperkalemia; resolved GI Mild ascites -Continue monitor Constipation -PRN lactulose ENDO Uncontrolled diabetes mellitus type 2, HGB A1c 7.4 -initially patient was on insulin drip, discontinued given lower trend of glucose -moderate insulin sliding scale Hypocalcemia and hyperphosphatemia -continue with dialysis. LINES Right IJ (02/19/24): Removed on 02/29/2024. Right PICC line insertion on 02/29/2024. Left IJ Sravan cath(02/20/24) Manley (02/19/24) Intubated (02/19/24) Barfield GT tube NUTRITION Nepro: Target 40 ml/hr DVT Prophylaxis: heparin PUD prophylaxis: protonix. Code status discussed with mother greater than 22 minutes full code. Critical care time > 79 minutes- including dw family Plan discussed with Dr Ridley Plan discussed with: Other My Orders My Orders Orders - FLORINA DE RESIDENT Procedure Category Date Status Time Ventilator Orders RT 02/28/24 Transmitted 17:50 Chest Xray 1 View XY 02/29/24 Resulted 04:00 Abg W/ Co-Ox RT 02/29/24 Logged 04:00 Dietary Evaluation Review Comments: 1) If GI is accessible consider Glucerna 1.2 @ 75 ml/hr goal rate as tolerated 2) If pt remains NPO >7 days consider TPN to meet at least 75% of estimated needs 3) Advance pt diet when medically feasible to a Renal Specific K2,Low Phos,SAM,2gmNa,80gPro diet (if not receiving dialysis) 4) Continue current plan of care Expected Outcomes/Goals: 1) Pt to receive adequate nutrition support within 7 days of NPO status 2) Pt diet to advance 3) Pt labs to improve 4) F/U in 2-3 days Date of Service: Feb 29, 2024 Billing Provider: ROHITH RIDLEY MD Common Visit Codes: [id number] INP/OBS CARE(HIGH) FLORINA DE RESIDENT Feb 29, 2024 15:43 ROHITH RIDLEY MD Feb 29, 2024 22:02
[2024-02-29] MEDS: SODIUM CHLOR 0.9% PF (SALINE LOCK) 10ML VIAL/SYR IV SCH (21:36)
[2024-03-01] VITALS (109 sets, daily range): BP systolic 90–175; BP diastolic 45–95; PULSE 72–106; RESP 8–28; TEMP 95.2–100.2; O2SAT 86–100
[2024-03-01 03:36] LABS: Basophils # (auto) 0.1 10 ^3/uL (0-0.2); Basophils % (auto) 0.8 % (0.0-2.0); Eosinophils # (auto) 0.3 10 ^3/uL (0-0.8); Eosinophils % (auto) 1.9 % (0.0-7.0); Hematocrit 31.4 % (41.0-53.0); Hemoglobin 10.3 g/dL (13.5-17.5); Lymphocytes # (auto) 2.9 10 ^3/uL (0.4-5.4); Lymphocytes % (auto) 16.6 % (10.0-50.0); Mean Corpuscular Hemoglobin 29.3 pg (28.0-32.0); Mean Corpuscular Hgb Conc. 32.9 g/dL (32.0-36.0); Mean Corpuscular Volume 89.3 fL (80.0-100.0); Monocytes # (auto) 2.4 10 ^3/uL (0-1.3); Neutrophils # (auto) 11.6 10 ^3/uL (1.6-8.6); Neutrophils % (auto) 66.7 % (37.0-80.0); Platelet Count (auto) 351 10^3/uL (140-450); Red Blood Cells 3.51 10^6/uL (4.5-5.90); Red Cell Distribution Width 15.7 % (11.8-14.3); White Blood Cell 17.4 10^3/uL (4.4-10.8)
[2024-03-01 03:58] LABS: INR 1.15 (0.9-1.15); Partial Thromboplastin Time 49.5 SEC (24.5-34.5); Prothrombin Time 12.1 sec (9.3-11.8)
[2024-03-01 04:03] LABS: Chloride 102 mmol/L (98-107); Potassium 3.7 mmol/L (3.5-5.1); Sodium 136 mmol/L (136-145)
[2024-03-01 04:04] LABS: Anion Gap 7 (5-15); Carbon Dioxide 27 mmol/L (20-31)
[2024-03-01 04:05] LABS: Calcium 9.1 mg/dL (8.7-10.4)
[2024-03-01 04:09] LABS: BUN/Creatinine Ratio 10.3 (10.0-20.0); Blood Urea Nitrogen 42 mg/dL (9-23); Glucose 136 mg/dL (74-106)
--- NOTE | 2024-03-01 05:32 | DVH ---
CHEST RADIOGRAPH Indication:on vent Technique: Single frontal view of the chest was obtained Comparison: XY CHEST XRAY 1 VIEW on DOS: 02/29/24, XY CHEST XRAY 1 VIEW on DOS: 02/28/24, XY CHEST XRA Y 1 VIEW on DOS: 02/27/24, XY CHEST PORTABLE on DOS: 02/26/24, XY CHEST XRAY 1 VIEW on DOS: 02/26/24, XY CHEST XRAY 1 VIEW on DOS: 02/29/24 FINDINGS: Lines and Tubes: The left central venous catheter terminates in the superior vena cava. Right centra l venous catheter terminates in the superior vena cava. The endotracheal tube terminates 6.9 cm above claudio. The enteric tube terminates in the stomach. Lungs: Bibasilar opacities, right greater than left similar to prior study. Pleura: No effusion. No pneumothorax. Cardiomediastinal contours: Magnified but stable in size. Bones: No acute osseous abnormality. IMPRESSION: 1. Stable position of the support lines and tubes. 2. Right mid to lower lung zone opacities and left basilar opacities, unchanged.
[2024-03-01 06:40] LABS: Base Excess -0.3 mmol/L (-2.0-3.0)
--- NOTE | 2024-03-01 12:25 | DVHPN2 ---
Progress Note - Dictate Date Seen: Mar 01, 2024 Medical Necessity Reason Pt with a Central, PICC or Fol: Yes The following are medically ne: Central Line, Barfield Catheter Reason for barfield catheter: Bladder Retention/Obstruc, Strict I&O Subjective intubated vital signs Vital Sign Date Time Temp Pulse Resp B/P (MAP) Pulse Ox O2 Delivery O2 Flow Rate FiO2 03/01/24 12:12 118/67 03/01/24 11:49 92 25 98 30 03/01/24 09:45 Mechanical Ventilator+ 03/01/24 09:45 98.1 208.6 Total Intake and Output 02/29/24 02/29/24 03/01/24 15:00 23:00 07:00 Intake Total 343.0 ml 817.0 ml 971.5 ml Output Total 350 ml 410 ml Balance 343.0 ml 467.0 ml 561.5 ml medications Current Medications Medications Dose Ordered Sig/Kishan Route Start Time Stop Time Status Last Admin Dose Admin Propofol 100 ml @ 2.7 mls/hr Q24H IV 02/19/24 14:45 02/19/24 14:45 2.7 MLS/HR Midazolam HCl 50 ml @ 1 mls/hr Q24H IV 02/19/24 17:15 03/01/24 01:58 9 MLS/HR Ondansetron HCl 4 mg Q4HP PRN IV 02/19/24 19:00 Enoxaparin Sodium 40 mg BID SC 02/19/24 22:00 UNV Nitroglycerin 0.4 mg Q5MINP PRN SL 02/19/24 19:00 Cefepime HCl 50 ml @ 12.5 mls/hr DAILY IV 02/20/24 10:00 UNV Phenylephrine HCl 250 ml @ 30 mls/hr Q8H20M IV 02/19/24 19:45 UNV Norepinephrine Bitartrate 32 mg/ Sodium Chloride 250 ml @ 0.938 mls/ hr Q24H IV 02/19/24 21:15 02/21/24 17:08 0.938 MLS/HR Fentanyl Citrate 250 ml @ 2.5 mls/hr Q24H IV 02/19/24 22:30 02/29/24 17:32 12.5 MLS/HR Dextrose 50 ml UD PRN IV 02/20/24 00:15 Cancel Calcium Gluconate/ Sodium Chloride 50 ml @ 100 mls/hr Q30M IV 02/20/24 08:15 02/20/24 09:14 Cancel Vancomycin HCl 0 ml @ 0 mls/hr UD IV 02/20/24 08:15 Pantoprazole Sodium 40 mg DAILY IV 02/20/24 10:00 03/01/24 09:41 40 MG Meropenem 50 ml @ 17 mls/hr Q12HR IV 02/20/24 10:00 03/01/24 09:46 17 MLS/HR Enteral Nutritional Formula 1,000 ml 40ML/HR NG 02/20/24 15:15 03/01/24 03:40 1,000 ML Amiodarone HCl 200 mg Q12HR PO 02/21/24 22:00 03/01/24 09:42 200 MG Vancomycin HCl 500 mg/Dextrose 100 ml @ 200 mls/hr Q24H IV 02/23/24 21:00 02/28/24 21:08 200 MLS/HR Dexmedetomidine HCl 400 mcg/ Dextrose 100 ml @ 3.97 mls/hr Q24H IV 02/26/24 04:00 03/01/24 10:23 3.97 MLS/HR Diagnostic Test (Pha) 1 strip Q6HR 02/25/24 18:00 03/01/24 12:11 1 STRIP Insulin Human Regular Q6HR SC 02/25/24 18:00 Dextrose 50 ml UD PRN IV 02/25/24 15:00 Norepinephrine Bitartrate 250 ml @ 3.75 mls/hr Q24H IV 02/26/24 12:30 Calcium Acetate 667 mg TID NG 02/26/24 22:00 03/01/24 05:41 667 MG Heparin Sodium/ Dextrose 250 ml @ 15 mls/hr [id number] IV 02/27/24 20:45 03/01/24 10:58 15 MLS/HR Sodium Chloride 10 ml QSHIFT@10,22 IV 02/29/24 22:00 03/01/24 09:41 10 ML objective gen: intubated lungs: occ ronchi cvs: no rub exT: no significant edema laboratory and microbiology Laboratory Tests 03/01/24 03:02 Test 03/01/24 03:02 Range/Units Serum Glucose 136 H 74-106 mg/dL Assessment/Plan Acute kidney injury superimposed Chronic Kidney Disease 4/ 5 secondary hemodynamic mediated, requiring intermittent hemodialysis Acute respiratory failure, intubated on ventilator Septic shock Obstructive uropathy Bilateral nephrolithiasis Right nephrostomy tube Congestive heart failure exacerbation Pneumonia Diabetes mellitus type 2 Hyperglycemia Iron-deficiency anemia Hyperphosphatemia RLL atelectasis due to mucus plug s/p bronchoscopy 02/26 Recommendations - will plan for isolated UF today due to efforts at extubation - discussed with pulmonary team Dietary Evaluation Review Comments: 1) If GI is accessible consider Glucerna 1.2 @ 75 ml/hr goal rate as tolerated 2) If pt remains NPO >7 days consider TPN to meet at least 75% of estimated needs 3) Advance pt diet when medically feasible to a Renal Specific K2,Low Phos,SAM,2gmNa,80gPro diet (if not receiving dialysis) 4) Continue current plan of care Expected Outcomes/Goals: 1) Pt to receive adequate nutrition support within 7 days of NPO status 2) Pt diet to advance 3) Pt labs to improve 4) F/U in 2-3 days Plan discussed with: Other MARIELOS HARRY MD Mar 01, 2024 12:24
[2024-03-01 12:32] LABS: Base Excess 0.4 mmol/L (-2.0-3.0)
--- NOTE | 2024-03-01 13:23 | DVHPNRES ---
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 Patient was brought to the hospital via EMS for worsening shortness of breath for past few days as per mother. As per mother patient was complaining having difficulty breathing which was progressively worsening that prompted her to call EMS.. Initially patient was on CPAP on arrival to EMS however patient was intubated in emergency department. After intubation patient blood pressure progressively worsening and patient had cardiac arrest with pea . Code blue was called, down time was 11 minutes and ROSC was achieved after 11 minutes of code blue. PSH: None as per mother. Home meds: Metoprolol succinate 50 mg daily, Eliquis 5 mg p.o. b.i.d., sevelamer carbonate 800 mg p.o. t.i.d., sodium bicarbonate 650 mg p.o. q.i.d., tamsulosin 0.4 mg p.o. q.a.m.,Amlodipine 10 mg p.o. daily. Social history: NAD Family history: NAD ROS: Review of systems not obtained as patient is intubated. Patient seen and examined in ICU. CPAP trial today. Continue be on ventilation. Repeat respiratory, blood, urine culture negative till now. Continue with antibiotic. No night time events. Plan to do HD before extubation. Objective vital signs Vital Sign Date Time Temp Pulse Resp B/P (MAP) Pulse Ox O2 Delivery O2 Flow Rate FiO2 03/01/24 12:12 118/67 03/01/24 11:49 92 25 98 30 03/01/24 09:45 Mechanical Ventilator+ 03/01/24 09:45 98.1 208.6 Total Intake and Output 02/29/24 02/29/24 03/01/24 15:00 23:00 07:00 Intake Total 343.0 ml 817.0 ml 971.5 ml Output Total 350 ml 410 ml Balance 343.0 ml 467.0 ml 561.5 ml medications Current Medications Medications Dose Ordered Sig/Kishan Route Start Time Stop Time Status Last Admin Dose Admin Propofol 100 ml @ 2.7 mls/hr Q24H IV 02/19/24 14:45 02/19/24 14:45 2.7 MLS/HR Midazolam HCl 50 ml @ 1 mls/hr Q24H IV 02/19/24 17:15 03/01/24 01:58 9 MLS/HR Ondansetron HCl 4 mg Q4HP PRN IV 02/19/24 19:00 Enoxaparin Sodium 40 mg BID SC 02/19/24 22:00 UNV Nitroglycerin 0.4 mg Q5MINP PRN SL 02/19/24 19:00 Cefepime HCl 50 ml @ 12.5 mls/hr DAILY IV 02/20/24 10:00 UNV Phenylephrine HCl 250 ml @ 30 mls/hr Q8H20M IV 02/19/24 19:45 UNV Norepinephrine Bitartrate 32 mg/ Sodium Chloride 250 ml @ 0.938 mls/ hr Q24H IV 02/19/24 21:15 02/21/24 17:08 0.938 MLS/HR Fentanyl Citrate 250 ml @ 2.5 mls/hr Q24H IV 02/19/24 22:30 02/29/24 17:32 12.5 MLS/HR Dextrose 50 ml UD PRN IV 02/20/24 00:15 Cancel Calcium Gluconate/ Sodium Chloride 50 ml @ 100 mls/hr Q30M IV 02/20/24 08:15 02/20/24 09:14 Cancel Vancomycin HCl 0 ml @ 0 mls/hr UD IV 02/20/24 08:15 Pantoprazole Sodium 40 mg DAILY IV 02/20/24 10:00 03/01/24 09:41 40 MG Meropenem 50 ml @ 17 mls/hr Q12HR IV 02/20/24 10:00 03/01/24 09:46 17 MLS/HR Enteral Nutritional Formula 1,000 ml 40ML/HR NG 02/20/24 15:15 03/01/24 03:40 1,000 ML Amiodarone HCl 200 mg Q12HR PO 02/21/24 22:00 03/01/24 09:42 200 MG Vancomycin HCl 500 mg/Dextrose 100 ml @ 200 mls/hr Q24H IV 02/23/24 21:00 02/28/24 21:08 200 MLS/HR Dexmedetomidine HCl 400 mcg/ Dextrose 100 ml @ 3.97 mls/hr Q24H IV 02/26/24 04:00 03/01/24 10:23 3.97 MLS/HR Diagnostic Test (Pha) 1 strip Q6HR 02/25/24 18:00 03/01/24 12:11 1 STRIP Insulin Human Regular Q6HR SC 02/25/24 18:00 Dextrose 50 ml UD PRN IV 02/25/24 15:00 Norepinephrine Bitartrate 250 ml @ 3.75 mls/hr Q24H IV 02/26/24 12:30 Calcium Acetate 667 mg TID NG 02/26/24 22:00 03/01/24 05:41 667 MG Heparin Sodium/ Dextrose 250 ml @ 15 mls/hr [id number] IV 02/27/24 20:45 03/01/24 10:58 15 MLS/HR Sodium Chloride 10 ml QSHIFT@10,22 IV 02/29/24 22:00 03/01/24 09:41 10 ML Examination General Appearance: Sedated on mechanical ventilation. Head Exam: Normal inspection Neck Exam: Normal inspection. Non-tender. Normal alignment Pulmonary/Respiratory: Chest non-tender. Bilateral lungs crackles. Cardiovascular/Chest: Regular rate and rhythm. No murmurs. No JVD. Peripheral Pulses: 2+ Radial (R). 2+ Radial (L). 2+ Pedal (R). 2+ Pedal (L) Abdominal Exam: Normal bowel sounds. Soft. Nontender. No hepatospenomegaly. No masses Ankle Exam: Negative ankle edema Lower extremities: Negative lower extremity edema, Positive scrotal swelling Neuro/Mental Status: Sedated, RASS -3 laboratory and microbiology Laboratory Tests 03/01/24 03:02 Test 03/01/24 03:02 Range/Units Serum Glucose 136 H 74-106 mg/dL Microbiology Date/Time Source Procedure Growth Status 02/26/24 14:18 Urine - Catheterized Urine Culture - Final Complete 02/26/24 12:00 Blood Blood Culture - Preliminary NO GROWTH AFTER 72 HOURS OF INCUBATION. Resulted 02/19/24 22:00 Nose MRSA Screen - Final Complete 02/19/24 14:46 Sputum Gram Stain - Final Complete 02/19/24 14:46 Sputum Respiratory Culture - Final Complete Problem List/Assessment/Plan Problem List/Assessment/Plan Subacute versus chronic stroke -CT head(03/21/24):Small lower density in the anterior inferior left frontal lobe and in the anterior aspect of the left internal capsule which may be age- indeterminate or subacute to chronic infarcts. -neurology consultation Sedated on mechanical ventilation -on Precedex CARDIOVASCULAR Cardiac arrest SP ROSC -Coded on 02/19/24. Downtime 11 minutes. Septic shock due to Gram-positive/Gram-negative pneumonia, -Off vasopressor now. -IV antibiotic with meropenem and vancomycin -Discontinue steroids given hemodynamic stability with one pressor. -CT chest(03/21/24):CT scan of chest and abdomen:1. CHF/volume overload with mild cardiomegaly, small to moderate bilateral pleural effusions, interstitial pulmonary edema, diffuse body wall edema and mild ascites. 2. Patchy and confluent airspace consolidations in all 5 lobes which could reflect multifocal pneumonia and/or pulmonary edema. 3. Endotracheal , gastric tubes, and right IJ central venous catheter are in place as described. 4. Right posterior approach percutaneous nephrostomy tube in place. No hydronephrosis in either kidney. 5. Bilateral urothelial thickening and diffuse bladder wall thickening. Correlate with urinalysis for ascending infection and cystitis, respectively. 6. Nonobstructing bilateral renal calculi. 7. Moderate retained stool in the colon. -repeat blood, urine, sputum culture. Negative T allow. NSTEMI type 2 likely due to above -continue current management of septic shock -cardiology: No origin coronary Angiography needed at this point -EKG: Sinus tachycardia with no ST elevation. Acute on chronic HFrEF( EF 30%) -ECHo(02/20):Severely reduced left ventricular systolic function with estimated ejection fraction 15% in a global fashion. -BNP(02/19/24):2390 -underwent dialysis(02/28/24): 2 L removed lactic acidosis due to septic shock:Resolved Afib with RVR: Rate controlled. -continue Heparin drip -Amiodarone 200 mg BID via GT tube. RESPIRATORY Acute hypoxic respiratory failure due to pneumonia -on ventilator: Volume control, respiratory rate 20, FiO2 400, FiO2 40%, peep 6: Titrating down PEEP slowly. -continue current management of septic shock -Off vasopressor. -plan of CPAP trial, extubation after hemodialysis. Pulmonary edema -Repeat Chest xray in AM /KIDNEY YOMI due to VMN in setting of septic shock and CHF -On dialysis (Last on 02/28/24) -Continue monitor I/O -Nephrology on board ? Acute cystitis -Continue antibiotics with meropenam and vancomycin Nonobstructing bilateral renal calculi with Right nephrostomy -Underwent bilateral nephrostomy ,currently has right nephrostomy tube. -nephrostomy tube patent -repeat urine culture Hyperkalemia; resolved GI Mild ascites -Continue monitor Constipation -PRN lactulose ENDO Uncontrolled diabetes mellitus type 2, HGB A1c 7.4 -initially patient was on insulin drip, discontinued given lower trend of glucose -moderate insulin sliding scale Hypocalcemia and hyperphosphatemia -continue with dialysis. LINES Right IJ (02/19/24): Removed on 02/29/2024. Right PICC line insertion on 02/29/2024. Left IJ Sravan cath(02/20/24) [place] (02/19/24) Intubated (02/19/24) Barfield GT tube NUTRITION Nepro: Target 40 ml/hr DVT Prophylaxis: heparin PUD prophylaxis: protonix. Patient's family son was at bedside, informed all clinicals including plan to do CPAP trial, possible hemodialysis. Extubation after hemodialysis per Dr. davidson Code status discussed with mother greater than 22 minutes full code. Critical care time > 79 minutes- including dw family Plan discussed with Dr Davidson Plan discussed with: Son, Other My Orders My Orders Orders - FLORINA DE RESIDENT Procedure Category Date Status Time Chest Xray 1 View XY 03/01/24 Resulted 04:00 Abg W/ Co-Ox RT 03/01/24 Logged 04:00 Cpap/Sed Vacation Med ORDERS 03/01/24 Transmitted Weaning 08:22 Cpap Trial For Am ORDERS 03/01/24 Transmitted 10:00 Abg W/ Co-Ox RT 03/01/24 Logged 11:50 Dietary Evaluation Review Comments: 1) If GI is accessible consider Glucerna 1.2 @ 75 ml/hr goal rate as tolerated 2) If pt remains NPO >7 days consider TPN to meet at least 75% of estimated needs 3) Advance pt diet when medically feasible to a Renal Specific K2,Low Phos,SAM,2gmNa,80gPro diet (if not receiving dialysis) 4) Continue current plan of care Expected Outcomes/Goals: 1) Pt to receive adequate nutrition support within 7 days of NPO status 2) Pt diet to advance 3) Pt labs to improve 4) F/U in 2-3 days FLORINA DE RESIDENT Mar 01, 2024 13:23
[2024-03-01] MEDS: CATHFLO ACTIVASE (ALTEPLASE) 2 MG VIAL IV ONE (16:07)
[2024-03-01] MEDS: SODIUM CHL 0.9% 1000 ML BAG XX ONE (16:15)
[2024-03-02] VITALS (109 sets, daily range): BP systolic 82–173; BP diastolic 51–99; PULSE 59–88; RESP 11–27; TEMP 97.9–99; O2SAT 86–100
[2024-03-02 04:12] LABS: Basophils # (auto) 0.1 10 ^3/uL (0-0.2); Basophils % (auto) 0.5 % (0.0-2.0); Eosinophils # (auto) 0.2 10 ^3/uL (0-0.8); Eosinophils % (auto) 0.8 % (0.0-7.0); Hematocrit 30.9 % (41.0-53.0); Hemoglobin 10.1 g/dL (13.5-17.5); Lymphocytes # (auto) 2.3 10 ^3/uL (0.4-5.4); Lymphocytes % (auto) 10.2 % (10.0-50.0); Mean Corpuscular Hgb Conc. 32.7 g/dL (32.0-36.0); Mean Corpuscular Volume 88.7 fL (80.0-100.0); Monocytes # (auto) 1.9 10 ^3/uL (0-1.3); Monocytes % (auto) 8.5 % (0.0-12.0); Neutrophils # (auto) 17.7 10 ^3/uL (1.6-8.6); Platelet Count (auto) 379 10^3/uL (140-450); Red Blood Cells 3.48 10^6/uL (4.5-5.90); Red Cell Distribution Width 15.8 % (11.8-14.3); White Blood Cell 22.2 10^3/uL (4.4-10.8)
[2024-03-02 04:26] LABS: Anion Gap 8 (5-15); Carbon Dioxide 26 mmol/L (20-31); Chloride 104 mmol/L (98-107); Potassium 3.5 mmol/L (3.5-5.1); Sodium 138 mmol/L (136-145)
[2024-03-02 04:27] LABS: Calcium 9.2 mg/dL (8.7-10.4)
[2024-03-02 04:32] LABS: BUN/Creatinine Ratio 11.6 (10.0-20.0); Blood Urea Nitrogen 49 mg/dL (9-23); Glucose 125 mg/dL (74-106); INR 1.12 (0.9-1.15); Partial Thromboplastin Time 47.3 SEC (24.5-34.5); Prothrombin Time 11.8 sec (9.3-11.8)
[2024-03-02] MEDS: HEPARIN DRIP/D5W 100UNITS/ML 250 ML IV SCH ×2 (04:56→06:08)
--- NOTE | 2024-03-02 05:34 | DVH ---
CHEST RADIOGRAPH Indication:on vent Technique: Single frontal view of the chest was obtained COMPARISON: XY CHEST XRAY 1 VIEW on DOS: 03/01/24, XY CHEST XRAY 1 VIEW on DOS: 02/29/24, XY CHEST XRAY 1 VIEW on DOS: 02/28/24 FINDINGS: Lines and Tubes: Endotracheal tube, enteric catheter and left central venous catheter in satisfactory position. Lungs: Patchy bilateral airspace disease. Pleura: No effusion. No pneumothorax. Cardiomediastinal contours: Unremarkable Bones: Unremarkable IMPRESSION: Lines and tubes in satisfactory position. No significant interval change.
--- NOTE | 2024-03-02 05:37 | DVH ---
Exam: US US GUIDED VASCULAR ACCESS Clinical History: PICC LINE INSERTION Comparison: None Findings: Targeted sonographic evaluation was obtained utilizing grayscale and color Doppler imaging. IMPRESSION: Sonographic assistance for central line placement. Please refer to procedural report for detailed fin dings.
[2024-03-02 07:04] LABS: Base Excess -0.6 mmol/L (-2.0-3.0)
--- NOTE | 2024-03-02 08:42 | DVHPNRES ---
Progress Note Date Seen: Mar 02, 2024 Resident Creating Document: MADISON YBARRA RESIDENT Medical Necessity Reason Pt with a Central, PICC or Fol: Yes The following are medically ne: Central Line, Barfield Catheter Reason for barfield catheter: Bladder Retention/Obstruc, Strict I&O Subjective Review of Systems HPI: 52/M PMH: HFrEF 30%, CKD stage 5 due to obstructive? uropathy, diabetes mellitus type 2, Paroxysmal AFib on Eliquis and metoprolol, hypertension, pulmonary hypertension, BPH, anemia of chronic disease. Patient was brought to the hospital via EMS for worsening shortness of breath for past few days as per mother. As per mother patient was complaining having difficulty breathing which was progressively worsening that prompted her to call EMS.. Initially patient was on CPAP on arrival to EMS however patient was intubated in emergency department. After intubation patient blood pressure progressively worsening and patient had cardiac arrest with pea . Code blue was called, down time was 11 minutes and ROSC was achieved after 11 minutes of code blue. PSH: None as per mother. Home meds: Metoprolol succinate 50 mg daily, Eliquis 5 mg p.o. b.i.d., sevelamer carbonate 800 mg p.o. t.i.d., sodium bicarbonate 650 mg p.o. q.i.d., tamsulosin 0.4 mg p.o. q.a.m.,Amlodipine 10 mg p.o. daily. Social history: NAD Family history: NAD ROS: Review of systems not obtained as patient is intubated. Patient seen and examined in ICU. Continue be on ventilation. Repeat respiratory, blood, urine culture negative till now. Continue with antibiotic. No night time events.HD was not possible due to malfunctioning of the catheter, exchanged today on right hemithorax , pending HD, WBC is trending high today Objective vital signs Vital Sign Date Time Temp Pulse Resp B/P (MAP) Pulse Ox O2 Delivery O2 Flow Rate FiO2 03/02/24 08:24 65 21 156/81 (106) 98 30 03/02/24 06:45 98.4 209.1 03/02/24 06:00 Mechanical Ventilator+ Total Intake and Output 03/01/24 03/01/24 03/02/24 14:59 22:59 06:59 Intake Total 230.225 ml 203.815 ml 1395.76 ml Output Total 0 ml 750 ml 950 ml Balance 230.225 ml -546.185 ml 445.76 ml medications Current Medications Medications Dose Ordered Sig/Kishan Route Start Time Stop Time Status Last Admin Dose Admin Propofol 100 ml @ 2.7 mls/hr Q24H IV 02/19/24 14:45 02/19/24 14:45 2.7 MLS/HR Midazolam HCl 50 ml @ 1 mls/hr Q24H IV 02/19/24 17:15 03/01/24 01:58 9 MLS/HR Ondansetron HCl 4 mg Q4HP PRN IV 02/19/24 19:00 Enoxaparin Sodium 40 mg BID SC 02/19/24 22:00 UNV Nitroglycerin 0.4 mg Q5MINP PRN SL 02/19/24 19:00 Cefepime HCl 50 ml @ 12.5 mls/hr DAILY IV 02/20/24 10:00 UNV Phenylephrine HCl 250 ml @ 30 mls/hr Q8H20M IV 02/19/24 19:45 UNV Norepinephrine Bitartrate 32 mg/ Sodium Chloride 250 ml @ 0.938 mls/ hr Q24H IV 02/19/24 21:15 02/21/24 17:08 0.938 MLS/HR Fentanyl Citrate 250 ml @ 2.5 mls/hr Q24H IV 02/19/24 22:30 02/29/24 17:32 12.5 MLS/HR Dextrose 50 ml UD PRN IV 02/20/24 00:15 Cancel Calcium Gluconate/ Sodium Chloride 50 ml @ 100 mls/hr Q30M IV 02/20/24 08:15 02/20/24 09:14 Cancel Vancomycin HCl 0 ml @ 0 mls/hr UD IV 02/20/24 08:15 Pantoprazole Sodium 40 mg DAILY IV 02/20/24 10:00 03/01/24 09:41 40 MG Meropenem 50 ml @ 17 mls/hr Q12HR IV 02/20/24 10:00 03/01/24 21:42 17 MLS/HR Enteral Nutritional Formula 1,000 ml 40ML/HR NG 02/20/24 15:15 03/01/24 03:40 1,000 ML Amiodarone HCl 200 mg Q12HR PO 02/21/24 22:00 03/01/24 21:42 200 MG Vancomycin HCl 500 mg/Dextrose 100 ml @ 200 mls/hr Q24H IV 02/23/24 21:00 03/01/24 21:00 200 MLS/HR Dexmedetomidine HCl 400 mcg/ Dextrose 100 ml @ 3.97 mls/hr Q24H IV 02/26/24 04:00 03/01/24 10:23 3.97 MLS/HR Diagnostic Test (Pha) 1 strip Q6HR 02/25/24 18:00 03/02/24 05:07 1 STRIP Insulin Human Regular Q6HR SC 02/25/24 18:00 03/02/24 05:24 2 UNITS Dextrose 50 ml UD PRN IV 02/25/24 15:00 Norepinephrine Bitartrate 250 ml @ 3.75 mls/hr Q24H IV 02/26/24 12:30 Calcium Acetate 667 mg TID NG 02/26/24 22:00 03/02/24 05:07 667 MG Sodium Chloride 10 ml QSHIFT@ IV 02/29/24 22:00 03/01/24 21:42 10 ML Heparin Sodium/ Dextrose 250 ml @ 17 mls/hr [id number] IV 03/02/24 05:00 03/02/24 04:56 17 MLS/HR Examination General Appearance: Sedated on mechanical ventilation. Head Exam: Normal inspection Neck Exam: Normal inspection. Non-tender. Normal alignment Pulmonary/Respiratory: Chest non-tender. Bilateral lungs crackles. Cardiovascular/Chest: Regular rate and rhythm. No murmurs. No JVD. Peripheral Pulses: 2+ Radial (R). 2+ Radial (L). 2+ Pedal (R). 2+ Pedal (L) Abdominal Exam: Normal bowel sounds. Soft. Nontender. No hepatospenomegaly. No masses Ankle Exam: Negative ankle edema Lower extremities: Negative lower extremity edema, Positive scrotal swelling Neuro/Mental Status: Sedated, RASS -3 laboratory and microbiology Laboratory Tests 03/02/24 03:00 Test 03/02/24 03:00 Range/Units Serum Glucose 125 H 74-106 mg/dL Microbiology Date/Time Source Procedure Growth Status 02/26/24 14:18 Urine - Catheterized Urine Culture - Final Complete 02/26/24 12:00 Blood Blood Culture - Preliminary NO GROWTH AFTER 72 HOURS OF INCUBATION. Resulted 02/19/24 22:00 Nose MRSA Screen - Final Complete 02/19/24 14:46 Sputum Gram Stain - Final Complete 02/19/24 14:46 Sputum Respiratory Culture - Final Complete Problem List/Assessment/Plan Problem List/Assessment/Plan NEUROLOGY Subacute versus chronic stroke -CT head(03/21/24):Small lower density in the anterior inferior left frontal lobe and in the anterior aspect of the left internal capsule which may be age- indeterminate or subacute to chronic infarcts. -neurology consultation Sedated on mechanical ventilation -on Precedex CARDIOVASCULAR Cardiac arrest SP ROSC -Coded on 02/19/24. Downtime 11 minutes. Septic shock due to Gram-positive/Gram-negative pneumonia, -Off vasopressor now. -IV antibiotic with meropenem and vancomycin -Discontinue steroids given hemodynamic stability with one pressor. -CT chest(03/21/24):CT scan of chest and abdomen:1. CHF/volume overload with mild cardiomegaly, small to moderate bilateral pleural effusions, interstitial pulmonary edema, diffuse body wall edema and mild ascites. 2. Patchy and confluent airspace consolidations in all 5 lobes which could reflect multifocal pneumonia and/or pulmonary edema. 3. Endotracheal , gastric tubes, and right IJ central venous catheter are in place as described. 4. Right posterior approach percutaneous nephrostomy tube in place. No hydronephrosis in either kidney. 5. Bilateral urothelial thickening and diffuse bladder wall thickening. Correlate with urinalysis for ascending infection and cystitis, respectively. 6. Nonobstructing bilateral renal calculi. 7. Moderate retained stool in the colon. prelim cultures negative WBC are trending high today NSTEMI type 2 likely due to above -continue current management of septic shock -cardiology: No origin coronary Angiography needed at this point -EKG: Sinus tachycardia with no ST elevation. Acute on chronic HFrEF( EF 30%) -ECHo(02/20):Severely reduced left ventricular systolic function with estimated ejection fraction 15% in a global fashion. -BNP(02/19/24):2390 -underwent dialysis(02/28/24): 2 L removed lactic acidosis due to septic shock:Resolved Afib with RVR: Rate controlled. -continue Heparin drip -Amiodarone 200 mg BID via GT tube. RESPIRATORY Acute hypoxic respiratory failure due to pneumonia -on ventilator: Volume control, respiratory rate 20, FiO2 400, FiO2 40%, peep 6: Titrating down PEEP slowly. -continue current management of septic shock -Off vasopressor. dialysis catheter was changed today, pending HD today Pulmonary edema -xray today showed mild pulmonary edema /KIDNEY YOMI due to VMN in setting of septic shock and CHF -On dialysis (Last on 02/28/24) -Continue monitor I/O dialysis catheter was changed today, pending HD today -Nephrology on board ? Acute cystitis -Continue antibiotics with meropenem and vancomycin Nonobstructing bilateral renal calculi with Right nephrostomy -Underwent bilateral nephrostomy ,currently has right nephrostomy tube. -nephrostomy tube patent -urine culture negative -Discussing the case with Dr Brown, he considered pertinent to consult urology for concept regarding nephrostomy, especially since the patient has a not obstructing calculi and patients WBC is trending high Hyperkalemia; resolved GI Mild ascites -Continue monitor Constipation -PRN lactulose ENDO Uncontrolled diabetes mellitus type 2, HGB A1c 7.4 -initially patient was on insulin drip, discontinued given lower trend of glucose -moderate insulin sliding scale Hypocalcemia and hyperphosphatemia -continue with dialysis. LINES Right IJ (02/19/24): Removed on 02/29/2024. Right PICC line insertion on 02/29/2024. Right IJ Sravan cath(03/02/24) [place] (02/19/24) Intubated (02/19/24) [place] GT tube NUTRITION Nepro: Target 40 ml/hr DVT Prophylaxis: heparin PUD prophylaxis: protonix. Patient's family son was at bedside, informed all procedures today Code status discussed with mother greater than 22 minutes full code. Critical care time > 79 minutes- including discussion with the family Plan discussed with Dr Davidson Plan discussed with: Patient, Other (rn) Dietary Evaluation Review Comments: 1) If GI is accessible consider Glucerna 1.2 @ 75 ml/hr goal rate as tolerated 2) If pt remains NPO >7 days consider TPN to meet at least 75% of estimated needs 3) Advance pt diet when medically feasible to a Renal Specific K2,Low Phos,SAM,2gmNa,80gPro diet (if not receiving dialysis) 4) Continue current plan of care Expected Outcomes/Goals: 1) Pt to receive adequate nutrition support within 7 days of NPO status 2) Pt diet to advance 3) Pt labs to improve 4) F/U in 2-3 days MDAISON YBARRA RESIDENT Mar 02, 2024 08:42
--- NOTE | 2024-03-02 10:05 | DVHPN2 ---
Progress Note - Dictate Date Seen: Mar 02, 2024 Medical Necessity Reason Pt with a Central, PICC or Fol: Yes The following are medically ne: Central Line, Barfield Catheter Reason for barfield catheter: Bladder Retention/Obstruc, Strict I&O Subjective Remains intubated, patient's mother at bedside vital signs Vital Sign Date Time Temp Pulse Resp B/P (MAP) Pulse Ox O2 Delivery O2 Flow Rate FiO2 03/02/24 08:24 65 21 156/81 (106) 98 30 03/02/24 06:45 98.4 209.1 03/02/24 06:00 Mechanical Ventilator+ Total Intake and Output 03/01/24 03/01/24 03/02/24 15:00 23:00 07:00 Intake Total 205.710 ml 205.800 ml 1376.79 ml Output Total 0 ml 750 ml 950 ml Balance 205.710 ml -544.200 ml 426.79 ml medications Current Medications Medications Dose Ordered Sig/Kishan Route Start Time Stop Time Status Last Admin Dose Admin Propofol 100 ml @ 2.7 mls/hr Q24H IV 02/19/24 14:45 02/19/24 14:45 2.7 MLS/HR Midazolam HCl 50 ml @ 1 mls/hr Q24H IV 02/19/24 17:15 03/01/24 01:58 9 MLS/HR Ondansetron HCl 4 mg Q4HP PRN IV 02/19/24 19:00 Enoxaparin Sodium 40 mg BID SC 02/19/24 22:00 UNV Nitroglycerin 0.4 mg Q5MINP PRN SL 02/19/24 19:00 Cefepime HCl 50 ml @ 12.5 mls/hr DAILY IV 02/20/24 10:00 UNV Phenylephrine HCl 250 ml @ 30 mls/hr Q8H20M IV 02/19/24 19:45 UNV Norepinephrine Bitartrate 32 mg/ Sodium Chloride 250 ml @ 0.938 mls/ hr Q24H IV 02/19/24 21:15 02/21/24 17:08 0.938 MLS/HR Fentanyl Citrate 250 ml @ 2.5 mls/hr Q24H IV 02/19/24 22:30 02/29/24 17:32 12.5 MLS/HR Dextrose 50 ml UD PRN IV 02/20/24 00:15 Cancel Calcium Gluconate/ Sodium Chloride 50 ml @ 100 mls/hr Q30M IV 02/20/24 08:15 02/20/24 09:14 Cancel Vancomycin HCl 0 ml @ 0 mls/hr UD IV 02/20/24 08:15 Pantoprazole Sodium 40 mg DAILY IV 02/20/24 10:00 03/01/24 09:41 40 MG Meropenem 50 ml @ 17 mls/hr Q12HR IV 02/20/24 10:00 03/01/24 21:42 17 MLS/HR Enteral Nutritional Formula 1,000 ml 40ML/HR NG 02/20/24 15:15 03/01/24 03:40 1,000 ML Amiodarone HCl 200 mg Q12HR PO 02/21/24 22:00 03/01/24 21:42 200 MG Vancomycin HCl 500 mg/Dextrose 100 ml @ 200 mls/hr Q24H IV 02/23/24 21:00 03/01/24 21:00 200 MLS/HR Dexmedetomidine HCl 400 mcg/ Dextrose 100 ml @ 3.97 mls/hr Q24H IV 02/26/24 04:00 03/01/24 10:23 3.97 MLS/HR Diagnostic Test (Pha) 1 strip Q6HR 02/25/24 18:00 03/02/24 05:07 1 STRIP Insulin Human Regular Q6HR SC 02/25/24 18:00 03/02/24 05:24 2 UNITS Dextrose 50 ml UD PRN IV 02/25/24 15:00 Norepinephrine Bitartrate 250 ml @ 3.75 mls/hr Q24H IV 02/26/24 12:30 Calcium Acetate 667 mg TID NG 02/26/24 22:00 03/02/24 05:07 667 MG Sodium Chloride 10 ml QSHIFT@10,22 IV 02/29/24 22:00 03/01/24 21:42 10 ML Heparin Sodium/ Dextrose 250 ml @ 17 mls/hr [id number] IV 03/02/24 05:00 03/02/24 04:56 17 MLS/HR objective gen: intubated lungs: occ ronchi cvs: no rub exT: no significant edema laboratory and microbiology Laboratory Tests 03/02/24 03:00 Test 03/02/24 03:00 Range/Units Serum Glucose 125 H 74-106 mg/dL Assessment/Plan Acute kidney injury superimposed Chronic Kidney Disease 4/ 5 secondary hemodynamic mediated, requiring intermittent hemodialysis Acute respiratory failure, intubated on ventilator Septic shock Obstructive uropathy Bilateral nephrolithiasis Right nephrostomy tube Congestive heart failure exacerbation Pneumonia Diabetes mellitus type 2 Hyperglycemia Iron-deficiency anemia Hyperphosphatemia RLL atelectasis due to mucus plug s/p bronchoscopy 02/26 Recommendations - metabolic parameters acceptable - hemodialysis catheter dysfunctional during dialysis attempts yesterday despite loading with Cathflo. - plan to attempt dialysis, ultrafiltration today after new dialysis access is achieved Dietary Evaluation Review Comments: 1) If GI is accessible consider Glucerna 1.2 @ 75 ml/hr goal rate as tolerated 2) If pt remains NPO >7 days consider TPN to meet at least 75% of estimated needs 3) Advance pt diet when medically feasible to a Renal Specific K2,Low Phos,SAM,2gmNa,80gPro diet (if not receiving dialysis) 4) Continue current plan of care Expected Outcomes/Goals: 1) Pt to receive adequate nutrition support within 7 days of NPO status 2) Pt diet to advance 3) Pt labs to improve 4) F/U in 2-3 days Plan discussed with: Other MARIELOS HARRY MD Mar 02, 2024 10:05
[2024-03-02] MEDS: fentaNYL CITRATE 100 MCG/2 ML VL ONE (10:41)
[2024-03-02] MEDS: fentaNYL CITRATE 100 MCG/2 ML VL IV ONE (10:51)
[2024-03-02 12:35] LABS: INR 1.12 (0.9-1.15); Partial Thromboplastin Time 51.9 SEC (24.5-34.5); Prothrombin Time 11.8 sec (9.3-11.8)
--- NOTE | 2024-03-02 12:46 | DVH ---
CHEST RADIOGRAPH Indication:RIGHT IJ HD CATHETER PLACEMENT Technique: Single frontal view of the chest was obtained Comparison: XY CHEST XRAY 1 VIEW on DOS: 03/02/24 FINDINGS: Lines and Tubes: Endotracheal tube terminates 3.1 cm above the claudio. Enteric tube courses below th e left hemidiaphragm and terminates in the stomach. Right central venous catheter terminates in the superior vena cava. The left central venous catheter has been removed. Lungs: Patchy right basilar airspace disease. Pleura: No effusion. No pneumothorax. Cardiomediastinal contours: Stable. Bones: No acute osseous abnormality. IMPRESSION: 1. Patchy right basilar airspace disease may reflect worsening atelectasis or pneumonia.
[2024-03-02] MEDS: SODIUM CHL 0.9% 1000 ML BAG XX ONE ×2 (13:30→15:22)
--- NOTE | 2024-03-02 14:07 | DVHNC2 ---
Procedure - Tour Conductor: Dr Godoy PGY1: Quoc Hinson catheter insertion starting with the first handwash prior to starting sterile technique. A time out was performed. My hands were washed immediately prior to the procedure. I wore a surgical cap, mask with protective eyewear, full gown and sterile gloves throughout the procedure. The patient was placed in Trendelenburg position. RIGHT chest region was prepped using chlorhexidine scrub and draped in sterile fashion using a full drape and sterile probe cover and sterile gel employed. The medial and lateral heads of the sternocleidomastoid muscle were identified as was the carotid pulse. The Internal Jugular vein was identified using the ultrasound. Anesthesia was ac hieved over the vein using 1% lidocaine. Using real-time out of plane guidance, the introducer needle was inserted into the Internal Jugular vein under direct ultrasound visualization. Venous blood was withdrawn. The syringe was removed and a guidewire was advanced into the introducer needle. The guidewire was visualized in the Internal Jugular Vein by ultrasound. A small incision was made at the skin surface with a scalpel and the introducer needle was exchanged for a dilator over the guidewire. After appropriate dilation was obtained, the dilator was exchanged over the wire for a zuleyma catheter. The wire was removed and the catheter was sutured in place. A sterile Tegaderm shield was placed over the catheter at the insertion site. The patient tolerated the procedure without any hemodynamic compromise. At time of procedure completion, all ports aspirated and flushed properly. Post-procedure chest x-ray without pneumothorax and the tip in adequate position . Estimated blood loss is 50 cc. MADISON YBARRA RESIDENT Mar 02, 2024 14:07
[2024-03-02 18:53] LABS: INR 1.14 (0.9-1.15); Partial Thromboplastin Time 39.3 SEC (24.5-34.5)
--- NOTE | 2024-03-02 19:03 | DVH ---
Left lower extremity venous duplex Clinical History: FOOT COLD/MOTTLED Comparison: US RT LOWER DVT on DOS: 04/12/23 Technique: Duplex Doppler evaluation of the deep venous system of the left lower extremity from the common femor al vein to the popliteal vein including color Doppler and spectral/pulsed waveform analysis was perfo rmed. Findings: Duplex Doppler evaluation of the deep venous system of the left lower extremity from the common femor al vein to the popliteal vein including color Doppler and spectral/pulsed waveform analysis was perfo rmed. The common femoral vein demonstrates appropriate compressibility and waveform variability. There is compressibility/patency of the great saphenous vein at the proximal thigh. The femoral vein demonstrates appropriate compressibility and waveform variability. The deep femoral vein demonstrates appropriate compressibility and waveform variability. The popliteal vein demonstrates appropriate compressibility and waveform variability. There is normal compressibility at the tibioperoneal trunk. Impression: No left femoropopliteal venous thrombosis. If clinical concern/symptoms persist or worsen, short-interval follow-up study is suggested.
--- NOTE | 2024-03-02 19:04 | DVH ---
Left Lower Extremity Arterial Duplex Clinical History: LEFT FOOT COLD/MOTTLED Comparison: None Technique: Duplex Doppler evaluation including color Doppler and spectral/pulsed waveform analysis of the lower extremity arteries was performed. Findings: Left: Peak systolic velocities are as follows: [employer] 48.5 cm/s Deep femoral 50.7 cm/s SFA proximal 48.5 cm/s SFA mid-portion 56.9 cm/s SFA distal 61.3 cm/s Popliteal 40.5 cm/s Posterior tibial 22 cm/s Anterior tibial 19.7 cm/s Dorsalis pedis 11.3 cm/s Triphasic waveform within the left common femoral artery. Otherwise, monophasic waveforms throughout the left lower extremity arteries. IMPRESSION: No hemodynamically significant stenosis based on peak systolic velocity criteria. Monophasic waveform from the left proximal superficial femoral artery to the dorsalis pedis artery wh ich may be from vaodilation or atherosclerotic disease. REFERENCE VALUES, [facility] ([facility]) vascular Imaging Lab Criteria: Peak systolic velocity ranges (in cm/sec) are as follows: <150 cm/s - <20 % stenosis 150-200 cm/s - 20-49% stenosis 200-300 cm/s - 50-75% stenosis >300 cm/s -> 75% stenosis
[2024-03-03] VITALS (103 sets, daily range): BP systolic 86–186; BP diastolic 49–101; PULSE 35–114; RESP 13–31; TEMP 90.5–100.6; O2SAT 89–100
[2024-03-03 03:05] LABS: INR 1.16 (0.9-1.15); Partial Thromboplastin Time 66.1 SEC (24.5-34.5); Prothrombin Time 12.2 sec (9.3-11.8)
[2024-03-03 04:05] LABS: Basophils # (auto) 0.2 10 ^3/uL (0-0.2); Basophils % (auto) 0.9 % (0.0-2.0); Eosinophils # (auto) 0.2 10 ^3/uL (0-0.8); Eosinophils % (auto) 1.4 % (0.0-7.0); Hematocrit 28.1 % (41.0-53.0); Hemoglobin 8.9 g/dL (13.5-17.5); Lymphocytes # (auto) 2.2 10 ^3/uL (0.4-5.4); Lymphocytes % (auto) 12.7 % (10.0-50.0); Mean Corpuscular Hemoglobin 28.6 pg (28.0-32.0); Mean Corpuscular Hgb Conc. 31.8 g/dL (32.0-36.0); Monocytes # (auto) 1.6 10 ^3/uL (0-1.3); Monocytes % (auto) 9.4 % (0.0-12.0); Neutrophils # (auto) 12.9 10 ^3/uL (1.6-8.6); Neutrophils % (auto) 75.6 % (37.0-80.0); Nucleated Red Blood Cells % 0.1 %; Platelet Count (auto) 288 10^3/uL (140-450); Red Blood Cells 3.12 10^6/uL (4.5-5.90); Red Cell Distribution Width 16.3 % (11.8-14.3); White Blood Cell 17.1 10^3/uL (4.4-10.8)
[2024-03-03 04:21] LABS: Alanine Aminotransferase 19 U/L (7-40); Albumin 3.1 g/dL (3.2-4.8); Alkaline Phosphatase 141 U/L (46-116); Anion Gap 8 (5-15); Aspartate Aminotransferase 18 U/L (13-40); BUN/Creatinine Ratio 11.9 (10.0-20.0); Bilirubin, Total 0.3 mg/dL (0.2-1.0); Blood Urea Nitrogen 52 mg/dL (9-23); Calcium 8.9 mg/dL (8.7-10.4); Carbon Dioxide 25 mmol/L (20-31); Chloride 106 mmol/L (98-107); Glucose 147 mg/dL (74-106); Potassium 3.6 mmol/L (3.5-5.1); Sodium 139 mmol/L (136-145); Total Protein 5.9 g/dL (5.7-8.2)
--- NOTE | 2024-03-03 04:41 | DVH ---
CHEST RADIOGRAPH Indication:dyspnea Technique: Single frontal view of the chest was obtained Comparison: XY CHEST PORTABLE on DOS: 03/02/24 FINDINGS: Lines and Tubes: The endotracheal tube terminates 2.7 cm above the claudio. Right central venous lili ter terminates in the superior vena cava. The enteric tube courses below the left hemidiaphragm and o utside the field of view. Lungs: Patchy right basilar airspace disease. Pleura: No effusion. No pneumothorax. Cardiomediastinal contours: Unremarkable Bones: No acute osseous abnormality. IMPRESSION: 1. Stable position of the support lines and tubes. 2. Patchy right basilar airspace disease may reflect atelectasis or pneumonia. Findings are similar t o prior radiograph.
--- NOTE | 2024-03-03 09:57 | DVHPN2 ---
Progress Note - Dictate Date Seen: Mar 03, 2024 Medical Necessity Reason Pt with a Central, PICC or Fol: Yes The following are medically ne: Central Line, Barfield Catheter Reason for barfield catheter: Bladder Retention/Obstruc, Strict I&O Subjective Mr. Gilmore is a 40 years old left-handed gentleman with a history of hypertension, diabetes, congestive heart failure, chronic kidney disease, the patient was brought to the [facility] on 02/19/2024 with a chief company of shortness breath, his CT brain scan showed evidence suggestive a stroke, I have seen and examined the patient, I discussed with his nurse, he is intubated, sedated, but he is awake, he responds to verbal stimuli, he follows verbal commands, able to move the hands a little bit but he is very weak Precedex 0.2 mcg per kg per hour Blood culture, 02/19/2024: UDS, 02/19/2024: Negative ABG, 02/19/2024: metabolic and respiratory acidosis, 02/20/2024: Metabolic acidosis WBC/HB/PLT/MCV, 02/20/24: 25.1/10.2/418/90.8 PT/INR/PTT, 02/22/2024: 11.9/1.13/55.2, 02/24/2024: 11.7/1.1/47 BUN/CR, 02/19/2024: 74/5.35 GFR, 02/19/2024: 12 HGB A1c, 02/10/2024: 76 Glucose, 02/20/2024: 469, 468, 475, 437 Lactic acid, 02/19/2024: 4.2, three, two TBI/AST/ALT/AP, 02/20/2024: 0.5/46/59/163 Troponin one high sensitivity, 02/19/2024: 238, 652, 1010, 06/22/2023: 1886 Beta h hydroxybutyric acid, 02/20/2024: 0.116 TG/HDL/LDL/HDL, 01/2024, 125/193/121/52 EEG : Remarkably abnormal EEG Carotid Doppler, 02/22/2024: 1. No hemodynamically significant stenosis noted in the right carotid system. 2. Nonvisualized left carotid system due to overlying bandage material Chest, 02/19/2024: Bilateral pleural effusions CT head, 02/19/2024: 1. No acute intracranial hemorrhage or mass effect. 2. Mild nonspecific white matter disease which may be related to chronic small-vessel ischemia. 3. Small lower density in the anterior inferior left frontal lobe and in the anterior aspect of the left internal capsule which may be age- indeterminate or subacute to chronic infarcts. 4. Partially imaged dental caries and periapical lucencies in maxillary teeth CT head 02/21/2024: No acute intracranial abnormality. No significant interval change. vital signs Vital Sign Date Time Temp Pulse Resp B/P (MAP) Pulse Ox O2 Delivery O2 Flow Rate FiO2 03/03/24 08:14 63 23 115/69 (84) 100 30 03/03/24 08:00 99.7 211.5 03/03/24 06:00 Mechanical Ventilator+ Total Intake and Output 03/02/24 03/02/24 03/03/24 15:00 23:00 07:00 Intake Total 214.180 ml 323.685 ml 571.790 ml Output Total 0 ml 850 ml 365 ml Balance 214.180 ml -526.315 ml 206.790 ml medications Current Medications Medications Dose Ordered Sig/Kishan Route Start Time Stop Time Status Last Admin Dose Admin Propofol 100 ml @ 2.7 mls/hr Q24H IV 02/19/24 14:45 02/19/24 14:45 2.7 MLS/HR Midazolam HCl 50 ml @ 1 mls/hr Q24H IV 02/19/24 17:15 03/01/24 01:58 9 MLS/HR Ondansetron HCl 4 mg Q4HP PRN IV 02/19/24 19:00 Enoxaparin Sodium 40 mg BID SC 02/19/24 22:00 UNV Nitroglycerin 0.4 mg Q5MINP PRN SL 02/19/24 19:00 Cefepime HCl 50 ml @ 12.5 mls/hr DAILY IV 02/20/24 10:00 UNV Phenylephrine HCl 250 ml @ 30 mls/hr Q8H20M IV 02/19/24 19:45 UNV Norepinephrine Bitartrate 32 mg/ Sodium Chloride 250 ml @ 0.938 mls/ hr Q24H IV 02/19/24 21:15 02/21/24 17:08 0.938 MLS/HR Fentanyl Citrate 250 ml @ 2.5 mls/hr Q24H IV 02/19/24 22:30 02/29/24 17:32 12.5 MLS/HR Dextrose 50 ml UD PRN IV 02/20/24 00:15 Cancel Calcium Gluconate/ Sodium Chloride 50 ml @ 100 mls/hr Q30M IV 02/20/24 08:15 02/20/24 09:14 Cancel Vancomycin HCl 0 ml @ 0 mls/hr UD IV 02/20/24 08:15 Pantoprazole Sodium 40 mg DAILY IV 02/20/24 10:00 03/02/24 09:58 40 MG Meropenem 50 ml @ 17 mls/hr Q12HR IV 02/20/24 10:00 03/02/24 22:02 17 MLS/HR Enteral Nutritional Formula 1,000 ml 40ML/HR NG 02/20/24 15:15 03/02/24 18:38 1,000 ML Amiodarone HCl 200 mg Q12HR PO 02/21/24 22:00 03/02/24 22:03 200 MG Vancomycin HCl 500 mg/Dextrose 100 ml @ 200 mls/hr Q24H IV 02/23/24 21:00 03/01/24 21:00 200 MLS/HR Dexmedetomidine HCl 400 mcg/ Dextrose 100 ml @ 3.97 mls/hr Q24H IV 02/26/24 04:00 03/03/24 02:28 5.955 MLS/HR Diagnostic Test (Pha) 1 strip Q6HR 02/25/24 18:00 03/03/24 06:15 1 STRIP Insulin Human Regular Q6HR SC 02/25/24 18:00 03/03/24 06:16 2 UNITS Dextrose 50 ml UD PRN IV 02/25/24 15:00 Norepinephrine Bitartrate 250 ml @ 3.75 mls/hr Q24H IV 02/26/24 12:30 Calcium Acetate 667 mg TID NG 02/26/24 22:00 03/03/24 06:02 667 MG Sodium Chloride 10 ml QSHIFT@10,22 IV 02/29/24 22:00 03/02/24 22:00 10 ML Heparin Sodium/ Dextrose 250 ml @ 19 mls/hr [id number] IV 03/02/24 20:00 03/02/24 06:08 19 MLS/HR objective The patient is well-nourished and well-developed with no distress. The patient is intubated MENTAL STATUS: Subjective CRANIAL NERVES: Pupils are round, and reactive. There are conjugated eye movement. No signs of facial weakness. There are gagging or coughing reflexes during airway and oral care SENSATION: Responses to pain stimuli. MOTOR: Normal tone in the upper and lower extremity. Normal muscle bulk. No fasciculations. Moves the hands a little bit REFLEXES: Deep tendon reflexes are symmetrical. No pathological reflexes. CEREBELLAR/COORDINATION: Deferred GAIT/STATION: deferred. laboratory and microbiology Laboratory Tests 03/03/24 03:55 Test 03/03/24 03:55 Range/Units Serum Glucose 147 H 74-106 mg/dL Problem List Abnormal CT brain scan, to rule out stroke Coma, resolved Metabolic encephalopathy Hypoxic encephalopathy Toxic encephalopathy Cardiopulmonary arrest Acute respiratory failure Metabolic acidosis Respiratory acidosis Leukocytosis to rule out sepsis Shock liver Chronic kidney failure Paroxysmal AFib RVR Anisocoria, uncertain clinical significance Assessment/Plan Monitoring Supportive treatment Follow-up lab ICU care Respiratory support/vent management Stabilize vitals Oxygen Heparin drip GI prophylaxis Wean off sedation as tolerated More recommendation per clinical course This medical document was created using an electronic medical record system with [email or web address] dictation system. Although this document has been carefully reviewed, there may still be some phonetic and typographical errors. These areas are purely typographical due to imperfections of the software programs, and do not reflect any compromise in the patient's medical care Prognosis guarded Dietary Evaluation Review Comments: 1) If GI is accessible consider Glucerna 1.2 @ 75 ml/hr goal rate as tolerated 2) If pt remains NPO >7 days consider TPN to meet at least 75% of estimated needs 3) Advance pt diet when medically feasible to a Renal Specific K2,Low Phos,SAM,2gmNa,80gPro diet (if not receiving dialysis) 4) Continue current plan of care Expected Outcomes/Goals: 1) Pt to receive adequate nutrition support within 7 days of NPO status 2) Pt diet to advance 3) Pt labs to improve 4) F/U in 2-3 days Plan discussed with: Other GUSTAVO AVELAR MD Mar 03, 2024 08:37
[2024-03-03 10:02] LABS: INR 1.15 (0.9-1.15); Prothrombin Time 12.1 sec (9.3-11.8)
[2024-03-03 10:10] LABS: Partial Thromboplastin Time 71.6 SEC (24.5-34.5)
[2024-03-03 11:35] LABS: Base Excess -1.3 mmol/L (-2.0-3.0)
--- NOTE | 2024-03-03 12:28 | MEDREC ---
[facility] ASP Intervention Section I [facility] ASP Intervention: Deescalate AB based on CS (13 DAYS ON BROAD SPECTRUM EMPIRIC ANTIBIOTIC THERAPY - NOTHING GROWING IN TE CULTURE - PLEASE CONSIDER DE- ESCALATION ) HECTOR CALZADA PHARMACIST Mar 03, 2024 12:28
[2024-03-03] MEDS: ACETYLCYSTEINE 20%(200MG/ML) SOL 4ML ONE (12:48)
[2024-03-03] MEDS: IPRATROPIUM BROM 0.5 MG/2.5ML INH SOL ONE (12:48)
[2024-03-03] MEDS: ALBUTEROL SULF 2.5 MG/0.5ML(0.5%) NEB SOLN ONE (12:49)
[2024-03-03] MEDS: FUROSEMIDE 40 MG/4 ML VIAL IV ONE (15:45)
--- NOTE | 2024-03-03 16:51 | DVHPNRES ---
Progress Note Date Seen: Mar 03, 2024 Resident Creating Document: FLORINA DE RESIDENT Medical Necessity Reason Pt with a Central, PICC or Fol: Yes The following are medically ne: Central Line, Barfield Catheter Reason for barfield catheter: Bladder Retention/Obstruc, Strict I&O Subjective Review of Systems HPI: 52/M PMH: HFrEF 30%, CKD stage 5 due to obstructive uropathy, diabetes mellitus type 2, Paroxysmal AFib on Eliquis and metoprolol, hypertension, pulmonary hypertension, BPH, anemia of chronic disease. Patient was brought to the hospital via EMS for worsening shortness of breath for past few days as per mother. As per mother patient was complaining having difficulty breathing which was progressively worsening that prompted her to call EMS.. Initially patient was on CPAP on arrival to EMS however patient was intubated in emergency department. After intubation patient blood pressure progressively worsening and patient had cardiac arrest with pea . Code blue was called, down time was 11 minutes and ROSC was achieved after 11 minutes of code blue. PSH: None as per mother. Home meds: Metoprolol succinate 50 mg daily, Eliquis 5 mg p.o. b.i.d., sevelamer carbonate 800 mg p.o. t.i.d., sodium bicarbonate 650 mg p.o. q.i.d., tamsulosin 0.4 mg p.o. q.a.m.,Amlodipine 10 mg p.o. daily. Social history: NAD Family history: NAD ROS: Initially patient was intubated, CPAP trial was done, extubated, transitioned from BiPAP to high-flow trial. Now on Oxymizer. After extubation patient did not any complaint, patient is feeling comfortable. No other complaints. Objective vital signs Vital Sign Date Time Temp Pulse Resp B/P (MAP) Pulse Ox O2 Delivery O2 Flow Rate FiO2 03/03/24 16:07 94 Oxymizer 8 N/A 03/03/24 15:45 150/89 03/03/24 12:40 88 03/03/24 12:10 18 03/03/24 08:00 99.7 211.5 Total Intake and Output 03/02/24 03/02/24 03/03/24 15:00 23:00 07:00 Intake Total 214.180 ml 323.685 ml 571.790 ml Output Total 0 ml 850 ml 365 ml Balance 214.180 ml -526.315 ml 206.790 ml medications Current Medications Medications Dose Ordered Sig/Kishan Route Start Time Stop Time Status Last Admin Dose Admin Ondansetron HCl 4 mg Q4HP PRN IV 02/19/24 19:00 Enoxaparin Sodium 40 mg BID SC 02/19/24 22:00 UNV Nitroglycerin 0.4 mg Q5MINP PRN SL 02/19/24 19:00 Cefepime HCl 50 ml @ 12.5 mls/hr DAILY IV 02/20/24 10:00 UNV Phenylephrine HCl 250 ml @ 30 mls/hr Q8H20M IV 02/19/24 19:45 UNV Dextrose 50 ml UD PRN IV 02/20/24 00:15 Cancel Calcium Gluconate/ Sodium Chloride 50 ml @ 100 mls/hr Q30M IV 02/20/24 08:15 02/20/24 09:14 Cancel Vancomycin HCl 0 ml @ 0 mls/hr UD IV 02/20/24 08:15 Pantoprazole Sodium 40 mg DAILY IV 02/20/24 10:00 03/03/24 09:59 40 MG Meropenem 50 ml @ 17 mls/hr Q12HR IV 02/20/24 10:00 03/03/24 10:01 17 MLS/HR Amiodarone HCl 200 mg Q12HR PO 02/21/24 22:00 03/03/24 10:00 200 MG Diagnostic Test (Pha) 1 strip Q6HR 02/25/24 18:00 03/03/24 12:19 1 STRIP Insulin Human Regular Q6HR SC 02/25/24 18:00 03/03/24 06:16 2 UNITS Dextrose 50 ml UD PRN IV 02/25/24 15:00 Calcium Acetate 667 mg TID NG 02/26/24 22:00 03/03/24 06:02 667 MG Sodium Chloride 10 ml QSHIFT@10,22 IV 02/29/24 22:00 03/03/24 10:00 10 ML Heparin Sodium/ Dextrose 250 ml @ 19 mls/hr [id number] IV 03/02/24 20:00 03/03/24 06:04 19 MLS/HR Furosemide 40 mg BIDD IV 03/03/24 18:00 Enteral Nutritional Formula 1,000 ml 40ML/HR NG 03/03/24 15:30 Examination General Appearance: Cooperative. Well developed. Well nourished. NAD on Oxymizer now. Head Exam: Normal inspection Neck Exam: Normal inspection. Non-tender. Normal alignment Pulmonary/Respiratory: Chest non-tender. Clear bilateral breath sounds Cardiovascular/Chest: Regular rate and rhythm. No murmurs. No JVD. Peripheral Pulses: 2+ Radial (R). 2+ Radial (L). 2+ Pedal (R). 2+ Pedal (L) Abdominal Exam: Normal bowel sounds. Soft. Nontender. No hepatospenomegaly. No masses Ankle Exam: Negative ankle edema Lower extremities: Negative lower extremity edema Neuro/Mental Status: A&O x4. Coherent laboratory and microbiology Laboratory Tests 03/03/24 03:55 Test 03/03/24 03:55 Range/Units Serum Glucose 147 H 74-106 mg/dL Microbiology Date/Time Source Procedure Growth Status 02/26/24 14:18 Urine - Catheterized Urine Culture - Final Complete 02/26/24 12:00 Blood Blood Culture - Final NO GROWTH AFTER 5 DAYS OF INCUBATION. Complete 02/19/24 22:00 Nose MRSA Screen - Final Complete 02/19/24 14:46 Sputum Gram Stain - Final Complete 02/19/24 14:46 Sputum Respiratory Culture - Final Complete Problem List/Assessment/Plan Problem List/Assessment/Plan Subacute versus chronic stroke -CT head(03/21/24):Small lower density in the anterior inferior left frontal lobe and in the anterior aspect of the left internal capsule which may be age- indeterminate or subacute to chronic infarcts. -neurology consultation Extubated 03/03/24 CARDIOVASCULAR Cardiac arrest SP ROSC -Coded on 02/19/24. Downtime 11 minutes. Septic shock due to Gram-positive/Gram-negative pneumonia, -Off vasopressor now. -IV antibiotic with meropenem and vancomycin -Discontinue steroids given hemodynamic stability with one pressor. -CT chest(03/21/24):CT scan of chest and abdomen:1. CHF/volume overload with mild cardiomegaly, small to moderate bilateral pleural effusions, interstitial pulmonary edema, diffuse body wall edema and mild ascites. 2. Patchy and confluent airspace consolidations in all 5 lobes which could reflect multifocal pneumonia and/or pulmonary edema. 3. Endotracheal , gastric tubes, and right IJ central venous catheter are in place as described. 4. Right posterior approach percutaneous nephrostomy tube in place. No hydronephrosis in either kidney. 5. Bilateral urothelial thickening and diffuse bladder wall thickening. Correlate with urinalysis for ascending infection and cystitis, respectively. 6. Nonobstructing bilateral renal calculi. 7. Moderate retained stool in the colon. -repeat blood, urine, sputum culture. Negative T allow. NSTEMI type 2 likely due to above -continue current management of septic shock -cardiology: No origin coronary Angiography needed at this point -EKG: Sinus tachycardia with no ST elevation. Acute on chronic HFrEF( EF 30%) -ECHo(02/20):Severely reduced left ventricular systolic function with estimated ejection fraction 15% in a global fashion. -BNP(02/19/24):2390 -underwent dialysis(03/02/24): 1 L removed lactic acidosis due to septic shock:Resolved Afib with RVR: Rate controlled. -continue Heparin drip -Amiodarone 200 mg BID via GT tube. RESPIRATORY Acute hypoxic respiratory failure due to pneumonia -continue current management of septic shock -On Oxymizer Pulmonary edema -Repeat Chest xray in AM /KIDNEY YOMI due to VMN in setting of septic shock and CHF -On dialysis -Continue monitor I/O -Nephrology on board -Lasix 40 mg IV BID ? Acute cystitis -Continue antibiotics with meropenam and vancomycin Nonobstructing bilateral renal calculi with Right nephrostomy -Underwent bilateral nephrostomy ,currently has right nephrostomy tube. -nephrostomy tube patent -repeat urine culture -Urology consultation Hyperkalemia; resolved GI Mild ascites -Continue monitor Constipation -PRN lactulose ENDO Uncontrolled diabetes mellitus type 2, HGB A1c 7.4 -initially patient was on insulin drip, discontinued given lower trend of glucose -moderate insulin sliding scale Hypocalcemia and hyperphosphatemia -continue with dialysis. LINES Right IJ (02/19/24): Removed on 02/29/2024. Right PICC line insertion on 02/29/2024. Left IJ Sravan cath(02/20/24) Chantal (02/19/24) Intubated (02/19/24) Extubated (03/03/24) Barfield GT tube NUTRITION Nepro: Target 40 ml/hr DVT Prophylaxis: heparin PUD prophylaxis: protonix. Code status discussed with mother greater than 22 minutes full code. Critical care time including CPAP trial > 82 minutes- including dw family(Mother) Plan discussed with Dr Marina Plan discussed with: Patient, Other (Mother) My Orders My Orders Orders - FLORINA DE Procedure Category Date Status Time Cpap Trial For Am ORDERS 03/03/24 Transmitted 05:52 Respiratory Misc. RT 03/03/24 Transmitted Order 11:59 Abg W/ Co-Ox RT 03/03/24 Logged 11:30 BIPAP RT 03/03/24 Logged 12:40 Potassium Chl PHA 03/03/24 In Process 20meq/100ml 16:00 Dietary Evaluation Review Comments: 1) If GI is accessible consider Glucerna 1.2 @ 75 ml/hr goal rate as tolerated 2) If pt remains NPO >7 days consider TPN to meet at least 75% of estimated needs 3) Advance pt diet when medically feasible to a Renal Specific K2,Low Phos,SAM,2gmNa,80gPro diet (if not receiving dialysis) 4) Continue current plan of care Expected Outcomes/Goals: 1) Pt to receive adequate nutrition support within 7 days of NPO status 2) Pt diet to advance 3) Pt labs to improve 4) F/U in 2-3 days Date of Service: Mar 03, 2024 Billing Provider: MAXIMILIANO CUENCA MD Common Visit Codes: 69665-TUUUAERM CARE 30-74 MIN, 56120-LTCUULQL CARE-EACH +30MIN FLORINA DE Mar 03, 2024 16:51 MAXIMILIANO CUENCA MD Mar 04, 2024 12:34
[2024-03-03 16:52] LABS: INR 1.11 (0.9-1.15); Prothrombin Time 11.7 sec (9.3-11.8)
[2024-03-03 16:55] LABS: Partial Thromboplastin Time 71.7 SEC (24.5-34.5)
[2024-03-03] MEDS: POTASSIUM CHL 20MEQ/100ML 100 ML IV ONE (17:51)
[2024-03-03] MEDS: FUROSEMIDE 40 MG/4 ML VIAL IV SCH (17:52)
[2024-03-03] MEDS: ACETAMINOPHEN 650 mg PER 20.3 mL UD GT ONE (19:15)
--- NOTE | 2024-03-03 20:47 | DVHPN2 ---
Progress Note Date Seen: Mar 03, 2024 Medical Necessity Reason Pt with a Central, PICC or Fol: Yes The following are medically ne: Central Line, Barfield Catheter Reason for barfield catheter: Bladder Retention/Obstruc, Strict I&O Subjective Patient reports: No new complaints (extubated) Review of Systems: HEENT:Normal, CVS:Normal, RESPIRATORY:Normal, GI:Normal, :Normal, MSK:Normal, NEURO:Normal Objective vital signs Vital Sign Date Time Temp Pulse Resp B/P (MAP) Pulse Ox O2 Delivery O2 Flow Rate FiO2 03/03/24 19:15 100.4 111 28 161/95 (117) 95 212.7 03/03/24 18:38 Oxymizer 8 N/A Total Intake and Output 03/02/24 03/02/24 03/03/24 15:00 23:00 07:00 Intake Total 214.180 ml 323.685 ml 571.790 ml Output Total 0 ml 850 ml 365 ml Balance 214.180 ml -526.315 ml 206.790 ml medications Current Medications Medications Dose Ordered Sig/Kishan Route Start Time Stop Time Status Last Admin Dose Admin Ondansetron HCl 4 mg Q4HP PRN IV 02/19/24 19:00 Enoxaparin Sodium 40 mg BID SC 02/19/24 22:00 UNV Nitroglycerin 0.4 mg Q5MINP PRN SL 02/19/24 19:00 Cefepime HCl 50 ml @ 12.5 mls/hr DAILY IV 02/20/24 10:00 UNV Phenylephrine HCl 250 ml @ 30 mls/hr Q8H20M IV 02/19/24 19:45 UNV Dextrose 50 ml UD PRN IV 02/20/24 00:15 Cancel Calcium Gluconate/ Sodium Chloride 50 ml @ 100 mls/hr Q30M IV 02/20/24 08:15 02/20/24 09:14 Cancel Vancomycin HCl 0 ml @ 0 mls/hr UD IV 02/20/24 08:15 Pantoprazole Sodium 40 mg DAILY IV 02/20/24 10:00 03/03/24 09:59 40 MG Meropenem 50 ml @ 17 mls/hr Q12HR IV 02/20/24 10:00 03/03/24 10:01 17 MLS/HR Amiodarone HCl 200 mg Q12HR PO 02/21/24 22:00 03/03/24 10:00 200 MG Diagnostic Test (Pha) 1 strip Q6HR 02/25/24 18:00 03/03/24 17:52 1 STRIP Insulin Human Regular Q6HR SC 02/25/24 18:00 03/03/24 06:16 2 UNITS Dextrose 50 ml UD PRN IV 02/25/24 15:00 Calcium Acetate 667 mg TID NG 02/26/24 22:00 03/03/24 06:02 667 MG Sodium Chloride 10 ml QSHIFT@, IV 02/29/24 22:00 03/03/24 10:00 10 ML Heparin Sodium/ Dextrose 250 ml @ 19 mls/hr [id number] IV 03/02/24 20:00 03/03/24 19:41 19 MLS/HR Furosemide 40 mg BIDD IV 03/03/24 18:00 03/03/24 17:52 40 MG Enteral Nutritional Formula 1,000 ml 40ML/HR NG 03/03/24 15:30 Levalbuterol HCl 0.625 mg Q6HWA NEB 03/04/24 00:00 Acetylcysteine 200 mg Q6HWA NEB 03/04/24 00:00 Examination: MSK:Abnormal, NEURO:Normal laboratory and microbiology Laboratory Tests 03/03/24 03:55 Test 03/03/24 03:55 Range/Units Serum Glucose 147 H 74-106 mg/dL Microbiology Date/Time Source Procedure Growth Status 02/26/24 14:18 Urine - Catheterized Urine Culture - Final Complete 02/26/24 12:00 Blood Blood Culture - Final NO GROWTH AFTER 5 DAYS OF INCUBATION. Complete 02/19/24 22:00 Nose MRSA Screen - Final Complete 02/19/24 14:46 Sputum Gram Stain - Final Complete 02/19/24 14:46 Sputum Respiratory Culture - Final Complete Problem List/Assessment/Plan Problem List/Assessment/Plan Acute kidney injury superimposed Chronic Kidney Disease 4/ 5 secondary hemodynamic mediated Acute respiratory failure, intubated on ventilator Septic shock Obstructive uropathy Bilateral nephrolithiasis Right nephrostomy tube Congestive heart failure exacerbation Bilateral pneumonia Diabetes mellitus type 2 Hyperglycemia Anemia of chronic kidney disease Recommendations HD tomorrow lasix iv bid febrile extubated Plan discussed with: Patient My Orders My Orders Orders - REBECCA NAIK MD Procedure Category Date Status Time Furosemide Injection PHA 03/03/24 In Process (Lasix Injection) 18:00 Hemodialysis Orders ORDERS 03/04/24 Transmitted 04:00 Dietary Evaluation Review Comments: 1) If GI is accessible consider Glucerna 1.2 @ 75 ml/hr goal rate as tolerated 2) If pt remains NPO >7 days consider TPN to meet at least 75% of estimated needs 3) Advance pt diet when medically feasible to a Renal Specific K2,Low Phos,SAM,2gmNa,80gPro diet (if not receiving dialysis) 4) Continue current plan of care Expected Outcomes/Goals: 1) Pt to receive adequate nutrition support within 7 days of NPO status 2) Pt diet to advance 3) Pt labs to improve 4) F/U in 2-3 days REBECCA NAIK MD Mar 03, 2024 20:47
[2024-03-03] MEDS: ACETYLCYSTEINE 20%(200MG/ML) SOL 4ML NEB ONE (20:57)
[2024-03-03] MEDS: LEVALBUTEROL HCL 1.25 MG/3 ML NEB NEB ONE (20:58)
[2024-03-04] VITALS (96 sets, daily range): BP systolic 96–168; BP diastolic 64–105; PULSE 88–113; RESP 11–29; TEMP 97.3–100; O2SAT 92–100
--- NOTE | 2024-03-04 04:39 | DVH ---
CHEST RADIOGRAPH Indication:on vent Technique: Single frontal view of the chest was obtained Comparison: XY CHEST XRAY 1 VIEW on DOS: 03/03/24 FINDINGS: Lines and Tubes: The endotracheal tube has been removed. Right central venous catheter terminates in the superior vena cava. The enteric tube courses below the left hemidiaphragm and outside the field o f view. Lungs: Patchy right basilar airspace opacities are unchanged. Pleura: No effusion. No pneumothorax. Cardiomediastinal contours: Unremarkable Bones: No acute osseous abnormality. IMPRESSION: 1. Removal of the endotracheal tube. Otherwise stable position of the support tubes. 2. No significant change in right basilar opacities.
[2024-03-04 06:01] LABS: Hematocrit 34.3 % (41.0-53.0); Hemoglobin 10.9 g/dL (13.5-17.5); Mean Corpuscular Hemoglobin 28.4 pg (28.0-32.0); Mean Corpuscular Hgb Conc. 31.6 g/dL (32.0-36.0); Mean Corpuscular Volume 89.6 fL (80.0-100.0); Platelet Count (auto) 387 10^3/uL (140-450); Red Blood Cells 3.83 10^6/uL (4.5-5.90); Red Cell Distribution Width 16.6 % (11.8-14.3); White Blood Cell 25.9 10^3/uL (4.4-10.8)
[2024-03-04 06:06] LABS: Basophils % (manual) 0 (0.0-2.0); Blast Cells 0; Metamyelocytes % 0; Myelocytes % 0; Promyelocytes % 0; Reactive Lymphocytes 0
[2024-03-04 06:14] LABS: INR 1.21 (0.9-1.15); Partial Thromboplastin Time 67.2 SEC (24.5-34.5); Prothrombin Time 12.6 sec (9.3-11.8)
[2024-03-04 06:19] LABS: Chloride 107 mmol/L (98-107); Potassium 3.4 mmol/L (3.5-5.1); Sodium 141 mmol/L (136-145)
[2024-03-04 06:20] LABS: Anion Gap 9 (5-15); Carbon Dioxide 25 mmol/L (20-31)
[2024-03-04 06:25] LABS: BUN/Creatinine Ratio 11.1 (10.0-20.0); Blood Urea Nitrogen 55 mg/dL (9-23); Glucose 96 mg/dL (74-106)
[2024-03-04] MEDS: LEVALBUTEROL HCL 1.25 MG/3 ML NEB NEB SCH (06:55)
[2024-03-04] MEDS: ACETYLCYSTEINE 20%(200MG/ML) SOL 4ML NEB SCH (06:56)
[2024-03-04] MEDS: ALBUMIN 25% 100 ML IV ONE (08:15)
[2024-03-04 08:24] LABS: Band Neutrophils % (manual) 5; Eosinophils % (manual) 2 (0-7); Lymphocytes % (manual) 8 (10.0-50.0); Monocytes % (manual) 10 (0-12); Platelet Estimate Adequate
[2024-03-04] MEDS: POTASSIUM CHL 20MEQ/100ML 100 ML IV SCH (08:45)
[2024-03-04] MEDS: NOREPINEPHRINE 8 MG/250ML KIT 250 ML IV ONE (08:52)
[2024-03-04] MEDS: ALBUMIN 25% 100 ML IV PRN (10:14)
[2024-03-04 10:22] LABS: INR 1.23 (0.9-1.15); Partial Thromboplastin Time 62.6 SEC (24.5-34.5); Prothrombin Time 12.8 sec (9.3-11.8)
--- NOTE | 2024-03-04 10:37 | DVHPN2 ---
Progress Note - Dictate Date Seen: Mar 04, 2024 Medical Necessity Reason Pt with a Central, PICC or Fol: Yes The following are medically ne: Central Line, Barfield Catheter Reason for barfield catheter: Bladder Retention/Obstruc, Strict I&O Subjective Mr. Gilmore is a 40 years old left-handed gentleman with a history of hypertension, diabetes, congestive heart failure, chronic kidney disease, the patient was brought to the [facility] on 02/19/2024 with a chief company of shortness breath, his CT brain scan showed evidence suggestive a stroke, I have seen and examined the patient, I discussed with his nurse, he is extubated, going through hemodialysis, but he is very sleepy, he can hardly talk According to his nurse, the patient was oriented to person place earlier today, he followed Blood culture, 02/19/2024: UDS, 02/19/2024: Negative ABG, 02/19/2024: metabolic and respiratory acidosis, 02/20/2024: Metabolic acidosis WBC/HB/PLT/MCV, 02/20/24: 25.1/10.2/418/90.8 PT/INR/PTT, 02/22/2024: 11.9/1.13/55.2, 02/24/2024: 11.7/1.1/47 BUN/CR, 02/19/2024: 74/5.35 GFR, 02/19/2024: 12 HGB A1c, 02/10/2024: 76 Glucose, 02/20/2024: 469, 468, 475, 437 Lactic acid, 02/19/2024: 4.2, three, two TBI/AST/ALT/AP, 02/20/2024: 0.5/46/59/163 Troponin one high sensitivity, 02/19/2024: 238, 652, 1010, 06/22/2023: 1886 Beta h hydroxybutyric acid, 02/20/2024: 0.116 TG/HDL/LDL/HDL, 01/2024, 125/193/121/52 EEG : Remarkably abnormal EEG Carotid Doppler, 02/22/2024: 1. No hemodynamically significant stenosis noted in the right carotid system. 2. Nonvisualized left carotid system due to overlying bandage material Chest, 02/19/2024: Bilateral pleural effusions CT head, 02/19/2024: 1. No acute intracranial hemorrhage or mass effect. 2. Mild nonspecific white matter disease which may be related to chronic small-vessel ischemia. 3. Small lower density in the anterior inferior left frontal lobe and in the anterior aspect of the left internal capsule which may be age- indeterminate or subacute to chronic infarcts. 4. Partially imaged dental caries and periapical lucencies in maxillary teeth CT head 02/21/2024: No acute intracranial abnormality. No significant interval change. vital signs Vital Sign Date Time Temp Pulse Resp B/P (MAP) Pulse Ox O2 Delivery O2 Flow Rate FiO2 03/04/24 08:00 97 23 95 Oxymizer 8 N/A 03/04/24 07:00 99.0 154/97 (116) 210.2 Total Intake and Output 03/03/24 03/03/24 03/04/24 15:00 23:00 07:00 Intake Total 206.97 ml 372 ml 322 ml Output Total 0 ml 685 ml 2220 ml Balance 206.97 ml -313 ml -1898 ml medications Current Medications Medications Dose Ordered Sig/Kishan Route Start Time Stop Time Status Last Admin Dose Admin Ondansetron HCl 4 mg Q4HP PRN IV 02/19/24 19:00 Enoxaparin Sodium 40 mg BID SC 02/19/24 22:00 UNV Nitroglycerin 0.4 mg Q5MINP PRN SL 02/19/24 19:00 Cefepime HCl 50 ml @ 12.5 mls/hr DAILY IV 02/20/24 10:00 UNV Phenylephrine HCl 250 ml @ 30 mls/hr Q8H20M IV 02/19/24 19:45 UNV Dextrose 50 ml UD PRN IV 02/20/24 00:15 Cancel Calcium Gluconate/ Sodium Chloride 50 ml @ 100 mls/hr Q30M IV 02/20/24 08:15 02/20/24 09:14 Cancel Vancomycin HCl 0 ml @ 0 mls/hr UD IV 02/20/24 08:15 Pantoprazole Sodium 40 mg DAILY IV 02/20/24 10:00 03/03/24 09:59 40 MG Meropenem 50 ml @ 17 mls/hr Q12HR IV 02/20/24 10:00 03/03/24 21:47 17 MLS/HR Amiodarone HCl 200 mg Q12HR PO 02/21/24 22:00 03/03/24 21:47 200 MG Diagnostic Test (Pha) 1 strip Q6HR 02/25/24 18:00 03/04/24 06:00 1 STRIP Insulin Human Regular Q6HR SC 02/25/24 18:00 03/03/24 06:16 2 UNITS Dextrose 50 ml UD PRN IV 02/25/24 15:00 Calcium Acetate 667 mg TID NG 02/26/24 22:00 03/04/24 06:49 667 MG Sodium Chloride 10 ml QSHIFT@10,22 IV 02/29/24 22:00 03/03/24 21:58 10 ML Heparin Sodium/ Dextrose 250 ml @ 19 mls/hr [id number] IV 03/02/24 20:00 03/03/24 19:41 19 MLS/HR Furosemide 40 mg BIDD IV 03/03/24 18:00 03/03/24 17:52 40 MG Enteral Nutritional Formula 1,000 ml 40ML/HR NG 03/03/24 15:30 Levalbuterol HCl 0.625 mg Q6HWA NEB 03/04/24 00:00 03/04/24 06:55 0.625 MG Acetylcysteine 200 mg Q6HWA NEB 03/04/24 00:00 03/04/24 06:56 200 MG Potassium Chloride 100 ml @ 50 mls/hr Q2H IV 03/04/24 06:45 03/04/24 10:44 Albumin Human 100 ml @ 100 mls/hr PRN PRN IV 03/04/24 08:15 03/04/24 10:14 100 MLS/HR objective The patient is well-nourished and well-developed with no distress. MENTAL STATUS: Subjective CRANIAL NERVES: Pupils are equal round and reactive to light briskly, normal external eye movement, normal sensation and motor examination in the lateral trigeminal nerve distribution, no facial weakness SENSATION: Find the pinprick and light touch MOTOR: Normal tone in the upper and lower extremity. Normal muscle bulk. No fasciculations. He moves extremities minimally REFLEXES: Deep tendon reflexes are symmetrical. No pathological reflexes. CEREBELLAR/COORDINATION: Deferred GAIT/STATION: deferred. laboratory and microbiology Laboratory Tests 03/04/24 05:08 Test 03/04/24 05:08 Range/Units Serum Glucose 96 74-106 mg/dL Problem List Abnormal CT brain scan, to rule out stroke Coma, resolved Metabolic encephalopathy Hypoxic encephalopathy Toxic encephalopathy Cardiopulmonary arrest Acute respiratory failure Metabolic acidosis Respiratory acidosis Leukocytosis to rule out sepsis Shock liver Chronic kidney failure Paroxysmal AFib RVR Anisocoria, uncertain clinical significance Assessment/Plan Monitoring Supportive treatment Follow-up lab ICU care Respiratory support Stabilize vitals Oxygen Heparin drip GI prophylaxis Hemodialysis More recommendation per clinical course This medical document was created using an electronic medical record system with [employer] dictation system. Although this document has been carefully reviewed, there may still be some phonetic and typographical errors. These areas are purely typographical due to imperfections of the software programs, and do not reflect any compromise in the patient's medical care Prognosis poor Dietary Evaluation Review Comments: 1) If GI is accessible consider Glucerna 1.2 @ 75 ml/hr goal rate as tolerated 2) If pt remains NPO >7 days consider TPN to meet at least 75% of estimated needs 3) Advance pt diet when medically feasible to a Renal Specific K2,Low Phos,SAM,2gmNa,80gPro diet (if not receiving dialysis) 4) Continue current plan of care Expected Outcomes/Goals: 1) Pt to receive adequate nutrition support within 7 days of NPO status 2) Pt diet to advance 3) Pt labs to improve 4) F/U in 2-3 days Plan discussed with: Other GUSTAVO AVELAR MD Mar 04, 2024 10:37
[2024-03-04] MEDS: NOREPINEPHRINE 8 MG/250ML KIT 250 ML IV SCH (10:45)
[2024-03-04] MEDS: Nepro With Carb Steady 1 Liter Bottle NG SCH (12:50)
--- NOTE | 2024-03-04 13:56 | DVHPNRES ---
Progress Note Date Seen: Mar 04, 2024 Resident Creating Document: FLORINA DE RESIDENT Medical Necessity Reason Pt with a Central, PICC or Fol: Yes The following are medically ne: Central Line, Barfield Catheter Reason for barfield catheter: Bladder Retention/Obstruc, Strict I&O Subjective Review of Systems HPI: 52/M PMH: HFrEF 30%, CKD stage 5 due to obstructive uropathy, diabetes mellitus type 2, Paroxysmal AFib on Eliquis and metoprolol, hypertension, pulmonary hypertension, BPH, anemia of chronic disease. Patient was brought to the hospital via EMS for worsening shortness of breath for past few days as per mother. As per mother patient was complaining having difficulty breathing which was progressively worsening that prompted her to call EMS.. Initially patient was on CPAP on arrival to EMS however patient was intubated in emergency department. After intubation patient blood pressure progressively worsening and patient had cardiac arrest with pea . Code blue was called, down time was 11 minutes and ROSC was achieved after 11 minutes of code blue. PSH: None as per mother. Home meds: Metoprolol succinate 50 mg daily, Eliquis 5 mg p.o. b.i.d., sevelamer carbonate 800 mg p.o. t.i.d., sodium bicarbonate 650 mg p.o. q.i.d., tamsulosin 0.4 mg p.o. q.a.m.,Amlodipine 10 mg p.o. daily. Social history: NAD Family history: NAD Patient seen and examined in ICU. Currently on oximizer. Underwent Dialysis today. No other complains. Objective vital signs Vital Sign Date Time Temp Pulse Resp B/P (MAP) Pulse Ox O2 Delivery O2 Flow Rate FiO2 03/04/24 12:00 26 98 Oxymizer 5 40 40 03/04/24 11:51 98 03/04/24 11:45 99.5 134/84 (101) 211.1 Total Intake and Output 03/03/24 03/03/24 03/04/24 15:00 23:00 07:00 Intake Total 206.97 ml 372 ml 322 ml Output Total 0 ml 685 ml 2220 ml Balance 206.97 ml -313 ml -1898 ml medications Current Medications Medications Dose Ordered Sig/Kishan Route Start Time Stop Time Status Last Admin Dose Admin Ondansetron HCl 4 mg Q4HP PRN IV 02/19/24 19:00 Enoxaparin Sodium 40 mg BID SC 02/19/24 22:00 UNV Nitroglycerin 0.4 mg Q5MINP PRN SL 02/19/24 19:00 Cefepime HCl 50 ml @ 12.5 mls/hr DAILY IV 02/20/24 10:00 UNV Phenylephrine HCl 250 ml @ 30 mls/hr Q8H20M IV 02/19/24 19:45 UNV Dextrose 50 ml UD PRN IV 02/20/24 00:15 Cancel Calcium Gluconate/ Sodium Chloride 50 ml @ 100 mls/hr Q30M IV 02/20/24 08:15 02/20/24 09:14 Cancel Vancomycin HCl 0 ml @ 0 mls/hr UD IV 02/20/24 08:15 Pantoprazole Sodium 40 mg DAILY IV 02/20/24 10:00 03/04/24 10:30 40 MG Meropenem 50 ml @ 17 mls/hr Q12HR IV 02/20/24 10:00 03/04/24 10:30 17 MLS/HR Amiodarone HCl 200 mg Q12HR PO 02/21/24 22:00 03/04/24 10:32 200 MG Diagnostic Test (Pha) 1 strip Q6HR 02/25/24 18:00 03/04/24 11:43 1 STRIP Insulin Human Regular Q6HR SC 02/25/24 18:00 03/03/24 06:16 2 UNITS Dextrose 50 ml UD PRN IV 02/25/24 15:00 Calcium Acetate 667 mg TID NG 02/26/24 22:00 03/04/24 06:49 667 MG Sodium Chloride 10 ml QSHIFT@10,22 IV 02/29/24 22:00 03/04/24 10:00 10 ML Heparin Sodium/ Dextrose 250 ml @ 19 mls/hr [id number] IV 03/02/24 20:00 03/04/24 11:51 19 MLS/HR Furosemide 40 mg BIDD IV 03/03/24 18:00 03/03/24 17:52 40 MG Enteral Nutritional Formula 1,000 ml 40ML/HR NG 03/03/24 15:30 03/04/24 12:50 1,000 ML Levalbuterol HCl 0.625 mg Q6HWA NEB 03/04/24 00:00 03/04/24 11:43 0.625 MG Acetylcysteine 200 mg Q6HWA NEB 03/04/24 00:00 03/04/24 11:44 200 MG Albumin Human 100 ml @ 100 mls/hr PRN PRN IV 03/04/24 08:15 03/04/24 10:14 100 MLS/HR Norepinephrine Bitartrate 250 ml @ 3.75 mls/hr Q24H IV 03/04/24 10:45 03/04/24 10:45 3.75 MLS/HR Examination General Appearance: Cooperative. Well developed. Well nourished. Now on Oxymizer now. Head Exam: Normal inspection Neck Exam: Normal inspection. Non-tender. Normal alignment Pulmonary/Respiratory: Chest non-tender. Clear bilateral breath sounds Cardiovascular/Chest: Regular rate and rhythm. No murmurs. No JVD. Peripheral Pulses: 2+ Radial (R). 2+ Radial (L). 2+ Pedal (R). 2+ Pedal (L) Abdominal Exam: Normal bowel sounds. Soft. Nontender. No hepatospenomegaly. No masses Ankle Exam: Negative ankle edema Lower extremities: Negative lower extremity edema Neuro/Mental Status: A&O x4. Coherent laboratory and microbiology Laboratory Tests 03/04/24 05:08 Test 03/04/24 05:08 Range/Units Serum Glucose 96 74-106 mg/dL Microbiology Date/Time Source Procedure Growth Status 03/03/24 21:08 Sputum Gram Stain Pending Resulted 03/03/24 21:08 Sputum Respiratory Culture - Preliminary Resulted 02/26/24 14:18 Urine - Catheterized Urine Culture - Final Complete 02/26/24 12:00 Blood Blood Culture - Final NO GROWTH AFTER 5 DAYS OF INCUBATION. Complete 02/19/24 22:00 Nose MRSA Screen - Final Complete Problem List/Assessment/Plan Problem List/Assessment/Plan Subacute versus chronic stroke -CT head(03/21/24):Small lower density in the anterior inferior left frontal lobe and in the anterior aspect of the left internal capsule which may be age- indeterminate or subacute to chronic infarcts. -neurology consultation Extubated 03/03/24 CARDIOVASCULAR Cardiac arrest SP ROSC -Coded on 02/19/24. Downtime 11 minutes. Septic shock due to Gram-positive/Gram-negative pneumonia, -Off vasopressor now. -IV antibiotic with meropenem and vancomycin -Discontinue steroids given hemodynamic stability with one pressor. -CT chest(03/21/24):CT scan of chest and abdomen:1. CHF/volume overload with mild cardiomegaly, small to moderate bilateral pleural effusions, interstitial pulmonary edema, diffuse body wall edema and mild ascites. 2. Patchy and confluent airspace consolidations in all 5 lobes which could reflect multifocal pneumonia and/or pulmonary edema. 3. Endotracheal , gastric tubes, and right IJ central venous catheter are in place as described. 4. Right posterior approach percutaneous nephrostomy tube in place. No hydronephrosis in either kidney. 5. Bilateral urothelial thickening and diffuse bladder wall thickening. Correlate with urinalysis for ascending infection and cystitis, respectively. 6. Nonobstructing bilateral renal calculi. 7. Moderate retained stool in the colon. -repeat blood, urine, sputum culture. Negative T allow. NSTEMI type 2 likely due to above -continue current management of septic shock -cardiology: No origin coronary Angiography needed at this point -EKG: Sinus tachycardia with no ST elevation. Acute on chronic HFrEF( EF 30%) -Echo(02/20):Severely reduced left ventricular systolic function with estimated ejection fraction 15% in a global fashion. -BNP(02/19/24):2390 -underwent dialysis(03/04/24): NO fluid removed lactic acidosis due to septic shock:Resolved Afib with RVR: Rate controlled. -continue Heparin drip -Amiodarone 200 mg BID via GT tube. RESPIRATORY Acute hypoxic respiratory failure due to pneumonia -continue current management of septic shock -On Oxymizer now Pulmonary edema -Repeat Chest xray in AM /KIDNEY YOMI due to VMN in setting of septic shock and CHF -On dialysis -Continue monitor I/O -Nephrology on board -Lasix 40 mg IV BID ? Acute cystitis -Continue antibiotics with meropenam and vancomycin Nonobstructing bilateral renal calculi with Right nephrostomy -Underwent bilateral nephrostomy ,currently has right nephrostomy tube. -nephrostomy tube patent -repeat urine culture -Urology consultation -IR consultation to exchange nephrostomy tube Hyperkalemia; resolved GI Mild ascites -Continue monitor Constipation -PRN lactulose ENDO Uncontrolled diabetes mellitus type 2, HGB A1c 7.4 -initially patient was on insulin drip, discontinued given lower trend of glucose -moderate insulin sliding scale Hypocalcemia and hyperphosphatemia -continue with dialysis. LINES Right IJ (02/19/24): Removed on 02/29/2024. Right PICC line insertion on 02/29/2024. Left IJ Sravan cath(02/20/24) Chantal (02/19/24) Intubated (02/19/24) Extubated (03/03/24) Barfield GT tube NUTRITION Nepro: Target 40 ml/hr DVT Prophylaxis: heparin PUD prophylaxis: protonix. Code status discussed with mother greater than 22 minutes full code. Critical care time > 69 minutes- including dw family(Mother) Plan discussed with Dr Marina Plan discussed with: Patient, Other (RN) My Orders My Orders Orders - FLORINA DE Procedure Category Date Status Time Chest Xray 1 View XY 03/04/24 Resulted 04:00 PTPTT LAB 03/04/24 Logged 17:00 PTPTT LAB 03/04/24 Logged 23:00 Norepinephrine 8 PHA 03/04/24 In Process Mg/250ml Kit 10:45 Potassium LAB 03/04/24 In Process 13:00 Pt Request For Service PT 03/04/24 Logged 10:46 Dietary Evaluation Review Comments: 1) If GI is accessible consider Glucerna 1.2 @ 75 ml/hr goal rate as tolerated 2) If pt remains NPO >7 days consider TPN to meet at least 75% of estimated needs 3) Advance pt diet when medically feasible to a Renal Specific K2,Low Phos,SAM,2gmNa,80gPro diet (if not receiving dialysis) 4) Continue current plan of care Expected Outcomes/Goals: 1) Pt to receive adequate nutrition support within 7 days of NPO status 2) Pt diet to advance 3) Pt labs to improve 4) F/U in 2-3 days Date of Service: Mar 04, 2024 Billing Provider: MAXIMILIANO CUENCA MD Common Visit Codes: [id number] CARE 30-74 MIN FLORINA DE Mar 04, 2024 13:56 MAXIMILIANO CUENCA MD Mar 05, 2024 11:52
[2024-03-04] MEDS: VANCOMYCIN 500 MG in D5W 5% 100 ML IV ONE (14:21)
--- NOTE | 2024-03-04 17:41 | DVHPN2 ---
Progress Note Date Seen: Mar 04, 2024 Medical Necessity Reason Pt with a Central, PICC or Fol: Yes The following are medically ne: Central Line, Barfield Catheter Reason for barfield catheter: Bladder Retention/Obstruc, Strict I&O Subjective Patient reports: Other (awake) Review of Systems: HEENT:Normal, CVS:Normal, RESPIRATORY:Normal, GI:Normal, :Normal, MSK:Normal, NEURO:Normal Objective vital signs Vital Sign Date Time Temp Pulse Resp B/P (MAP) Pulse Ox O2 Delivery O2 Flow Rate FiO2 03/04/24 17:15 99.7 103 23 144/92 (109) 95 211.5 03/04/24 16:00 Oxymizer 5 40 40 Total Intake and Output 03/03/24 03/03/24 03/04/24 15:00 23:00 07:00 Intake Total 206.97 ml 372 ml 322 ml Output Total 0 ml 685 ml 2220 ml Balance 206.97 ml -313 ml -1898 ml medications Current Medications Medications Dose Ordered Sig/Kishan Route Start Time Stop Time Status Last Admin Dose Admin Ondansetron HCl 4 mg Q4HP PRN IV 02/19/24 19:00 Enoxaparin Sodium 40 mg BID SC 02/19/24 22:00 UNV Nitroglycerin 0.4 mg Q5MINP PRN SL 02/19/24 19:00 Cefepime HCl 50 ml @ 12.5 mls/hr DAILY IV 02/20/24 10:00 UNV Phenylephrine HCl 250 ml @ 30 mls/hr Q8H20M IV 02/19/24 19:45 UNV Dextrose 50 ml UD PRN IV 02/20/24 00:15 Cancel Calcium Gluconate/ Sodium Chloride 50 ml @ 100 mls/hr Q30M IV 02/20/24 08:15 02/20/24 09:14 Cancel Vancomycin HCl 0 ml @ 0 mls/hr UD IV 02/20/24 08:15 Pantoprazole Sodium 40 mg DAILY IV 02/20/24 10:00 03/04/24 10:30 40 MG Meropenem 50 ml @ 17 mls/hr Q12HR IV 02/20/24 10:00 03/04/24 10:30 17 MLS/HR Amiodarone HCl 200 mg Q12HR PO 02/21/24 22:00 03/04/24 10:32 200 MG Diagnostic Test (Pha) 1 strip Q6HR 02/25/24 18:00 03/04/24 17:10 1 STRIP Insulin Human Regular Q6HR SC 02/25/24 18:00 03/03/24 06:16 2 UNITS Dextrose 50 ml UD PRN IV 02/25/24 15:00 Calcium Acetate 667 mg TID NG 02/26/24 22:00 03/04/24 14:21 667 MG Sodium Chloride 10 ml QSHIFT@ IV 02/29/24 22:00 03/04/24 10:00 10 ML Heparin Sodium/ Dextrose 250 ml @ 19 mls/hr [id number] IV 03/02/24 20:00 03/04/24 11:51 19 MLS/HR Furosemide 40 mg BIDD IV 03/03/24 18:00 03/04/24 17:10 40 MG Enteral Nutritional Formula 1,000 ml 40ML/HR NG 03/03/24 15:30 03/04/24 12:50 1,000 ML Levalbuterol HCl 0.625 mg Q6HWA NEB 03/04/24 00:00 03/04/24 11:43 0.625 MG Acetylcysteine 200 mg Q6HWA NEB 03/04/24 00:00 03/04/24 11:44 200 MG Albumin Human 100 ml @ 100 mls/hr PRN PRN IV 03/04/24 08:15 03/04/24 10:14 100 MLS/HR Norepinephrine Bitartrate 250 ml @ 3.75 mls/hr Q24H IV 03/04/24 10:45 03/04/24 10:45 3.75 MLS/HR Examination: GENERAL:Normal, HEENT:Normal, NECK:Normal, LUNGS:Abnormal, CVS:Normal, ABDOMEN:Normal, MSK:Abnormal, SKIN:Normal, NEURO:Normal, :Normal laboratory and microbiology Laboratory Tests 03/04/24 13:26 03/04/24 05:08 Test 03/04/24 05:08 Range/Units Serum Glucose 96 74-106 mg/dL Microbiology Date/Time Source Procedure Growth Status 03/03/24 21:08 Sputum Gram Stain Pending Resulted 03/03/24 21:08 Sputum Respiratory Culture - Preliminary Resulted 02/26/24 14:18 Urine - Catheterized Urine Culture - Final Complete 02/26/24 12:00 Blood Blood Culture - Final NO GROWTH AFTER 5 DAYS OF INCUBATION. Complete 02/19/24 22:00 Nose MRSA Screen - Final Complete Problem List/Assessment/Plan Problem List/Assessment/Plan Acute kidney injury superimposed Chronic Kidney Disease 4/ 5 secondary hemodynamic mediated Acute respiratory failure, intubated on ventilator Septic shock Obstructive uropathy Bilateral nephrolithiasis Right nephrostomy tube Congestive heart failure exacerbation Bilateral pneumonia Diabetes mellitus type 2 Hyperglycemia Anemia of chronic kidney disease Recommendations HD today ,Need tunneled cath lasix iv bid febrile events extubated on 5 L oxymiser Plan discussed with: Patient My Orders My Orders Orders - REBECCA NAIK MD Procedure Category Date Status Time Hemodialysis Orders ORDERS 03/04/24 Transmitted 04:00 Albumin 25% (Albutein) PHA 03/04/24 In Process 08:15 Blood Culture YEHUDA 03/04/24 Logged 14:36 * Radiologist Consult CONS 03/04/24 Transmitted 14:41 Dietary Evaluation Review Comments: 1) If GI is accessible consider Glucerna 1.2 @ 75 ml/hr goal rate as tolerated 2) If pt remains NPO >7 days consider TPN to meet at least 75% of estimated needs 3) Advance pt diet when medically feasible to a Renal Specific K2,Low Phos,SAM,2gmNa,80gPro diet (if not receiving dialysis) 4) Continue current plan of care Expected Outcomes/Goals: 1) Pt to receive adequate nutrition support within 7 days of NPO status 2) Pt diet to advance 3) Pt labs to improve 4) F/U in 2-3 days REBECCA NAIK MD Mar 04, 2024 17:41
[2024-03-04 18:31] LABS: INR 1.23 (0.9-1.15); Prothrombin Time 12.8 sec (9.3-11.8)
[2024-03-04 18:51] LABS: Partial Thromboplastin Time 73.5 SEC (24.5-34.5)
[2024-03-05] VITALS (61 sets, daily range): BP systolic 122–166; BP diastolic 79–105; PULSE 79–117; RESP 10–27; TEMP 98.3–99.7; O2SAT 86–100
--- NOTE | 2024-03-05 04:44 | DVH ---
CHEST RADIOGRAPH Indication:NG TUBE PLACEMENT Technique: Single frontal view of the chest was obtained Comparison: XY CHEST XRAY 1 VIEW on DOS: 03/04/24 FINDINGS: Lines and Tubes: Right central venous catheter terminates in the superior vena cava. The enteric tub e courses below the left hemidiaphragm and the tip extends outside the field of view. Lungs: Right basilar opacities are similar to prior study. Pleura: No effusion. No pneumothorax. Cardiomediastinal contours: Unremarkable Bones: No acute osseous abnormality. Right glenohumeral joint arthrosis. IMPRESSION: 1. Stable appearance of the support lines and tubes. 2. Similar aeration of the lungs.
[2024-03-05 06:24] LABS: Anion Gap 11 (5-15); Carbon Dioxide 24 mmol/L (20-31); Chloride 106 mmol/L (98-107); Potassium 3.6 mmol/L (3.5-5.1); Sodium 141 mmol/L (136-145)
[2024-03-05 06:25] LABS: Calcium 9.7 mg/dL (8.7-10.4)
[2024-03-05 06:30] LABS: BUN/Creatinine Ratio 8.9 (10.0-20.0); Glucose 124 mg/dL (74-106)
[2024-03-05 06:32] LABS: Blood Urea Nitrogen 36 mg/dL (9-23)
[2024-03-05 06:43] LABS: INR 1.25 (0.9-1.15); Partial Thromboplastin Time 64.3 SEC (24.5-34.5)
[2024-03-05 07:31] LABS: Basophils # (auto) 0.3 10 ^3/uL (0-0.2); Basophils % (auto) 1.1 % (0.0-2.0); Eosinophils # (auto) 0.3 10 ^3/uL (0-0.8); Eosinophils % (auto) 1.2 % (0.0-7.0); Hemoglobin 11.5 g/dL (13.5-17.5); Lymphocytes # (auto) 2.5 10 ^3/uL (0.4-5.4); Lymphocytes % (auto) 11.3 % (10.0-50.0); Mean Corpuscular Hemoglobin 28.8 pg (28.0-32.0); Mean Corpuscular Hgb Conc. 32.1 g/dL (32.0-36.0); Mean Corpuscular Volume 89.9 fL (80.0-100.0); Monocytes # (auto) 2.2 10 ^3/uL (0-1.3); Neutrophils # (auto) 16.6 10 ^3/uL (1.6-8.6); Neutrophils % (auto) 76.4 % (37.0-80.0); Nucleated Red Blood Cells % 0.1 %; Platelet Count (auto) 426 10^3/uL (140-450); White Blood Cell 21.8 10^3/uL (4.4-10.8)
--- NOTE | 2024-03-05 10:55 | DVHPN2 ---
Progress Note - Dictate Date Seen: Mar 05, 2024 Medical Necessity Reason Pt with a Central, PICC or Fol: Yes The following are medically ne: Central Line, Barfield Catheter Reason for barfield catheter: Bladder Retention/Obstruc, Strict I&O Subjective Mr. Gilmore is a 40 years old left-handed gentleman with a history of hypertension, diabetes, congestive heart failure, chronic kidney disease, the patient was brought to the [facility] on 02/19/2024 with a chief company of shortness breath, his CT brain scan showed evidence suggestive a stroke, I have seen and examined the patient, I discussed with his nurse, he is awake, oriented x3. He tells me he is otherwise healthy, but on the day he came to the hospital, he had short of breath when he was in the bath, which did not improve and he asked the family called 911, the next memory was waking up in the hospital Blood culture, 02/19/2024: UDS, 02/19/2024: Negative ABG, 02/19/2024: metabolic and respiratory acidosis, 02/20/2024: Metabolic acidosis WBC/HB/PLT/MCV, 02/20/24: 25.1/10.2/418/90.8 PT/INR/PTT, 02/22/2024: 11.9/1.13/55.2, 02/24/2024: 11.7/1.1/47 BUN/CR, 02/19/2024: 74/5.35 GFR, 02/19/2024: 12 HGB A1c, 02/10/2024: 76 Glucose, 02/20/2024: 469, 468, 475, 437 Lactic acid, 02/19/2024: 4.2, three, two TBI/AST/ALT/AP, 02/20/2024: 0.5/46/59/163 Troponin one high sensitivity, 02/19/2024: 238, 652, 1010, 06/22/2023: 1886 Beta h hydroxybutyric acid, 02/20/2024: 0.116 TG/HDL/LDL/HDL, 01/2024, 125/193/121/52 EEG : Remarkably abnormal EEG Carotid Doppler, 02/22/2024: 1. No hemodynamically significant stenosis noted in the right carotid system. 2. Nonvisualized left carotid system due to overlying bandage material Chest, 02/19/2024: Bilateral pleural effusions CT head, 02/19/2024: 1. No acute intracranial hemorrhage or mass effect. 2. Mild nonspecific white matter disease which may be related to chronic small-vessel ischemia. 3. Small lower density in the anterior inferior left frontal lobe and in the anterior aspect of the left internal capsule which may be age- indeterminate or subacute to chronic infarcts. 4. Partially imaged dental caries and periapical lucencies in maxillary teeth CT head 02/21/2024: No acute intracranial abnormality. No significant interval change. vital signs Vital Sign Date Time Temp Pulse Resp B/P (MAP) Pulse Ox O2 Delivery O2 Flow Rate FiO2 03/05/24 06:30 99.5 101 21 144/98 (113) 99 99.5 03/05/24 06:05 Nasal Cannula 1.0 03/05/24 06:05 24 Total Intake and Output 03/04/24 03/04/24 03/05/24 15:00 23:00 07:00 Intake Total 155.75 ml 258 ml 391 ml Output Total 0 ml 950 ml 1450 ml Balance 155.75 ml -692 ml -1059 ml medications Current Medications Medications Dose Ordered Sig/Kishan Route Start Time Stop Time Status Last Admin Dose Admin Ondansetron HCl 4 mg Q4HP PRN IV 02/19/24 19:00 Enoxaparin Sodium 40 mg BID SC 02/19/24 22:00 UNV Nitroglycerin 0.4 mg Q5MINP PRN SL 02/19/24 19:00 Cefepime HCl 50 ml @ 12.5 mls/hr DAILY IV 02/20/24 10:00 UNV Phenylephrine HCl 250 ml @ 30 mls/hr Q8H20M IV 02/19/24 19:45 UNV Dextrose 50 ml UD PRN IV 02/20/24 00:15 Cancel Calcium Gluconate/ Sodium Chloride 50 ml @ 100 mls/hr Q30M IV 02/20/24 08:15 02/20/24 09:14 Cancel Vancomycin HCl 0 ml @ 0 mls/hr UD IV 02/20/24 08:15 Pantoprazole Sodium 40 mg DAILY IV 02/20/24 10:00 03/05/24 10:43 40 MG Meropenem 50 ml @ 17 mls/hr Q12HR IV 02/20/24 10:00 03/05/24 10:27 17 MLS/HR Amiodarone HCl 200 mg Q12HR PO 02/21/24 22:00 03/05/24 10:26 200 MG Diagnostic Test (Pha) 1 strip Q6HR 02/25/24 18:00 03/05/24 06:17 1 STRIP Insulin Human Regular Q6HR SC 02/25/24 18:00 03/03/24 06:16 2 UNITS Dextrose 50 ml UD PRN IV 02/25/24 15:00 Calcium Acetate 667 mg TID NG 02/26/24 22:00 03/05/24 06:17 667 MG Sodium Chloride 10 ml QSHIFT@ IV 02/29/24 22:00 03/05/24 10:37 10 ML Heparin Sodium/ Dextrose 250 ml @ 19 mls/hr [id number] IV 03/02/24 20:00 03/04/24 22:47 19 MLS/HR Furosemide 40 mg BIDD IV 03/03/24 18:00 03/05/24 06:20 40 MG Enteral Nutritional Formula 1,000 ml 40ML/HR NG 03/03/24 15:30 03/04/24 12:50 1,000 ML Levalbuterol HCl 0.625 mg Q6HWA NEB 03/04/24 00:00 03/05/24 06:05 0.625 MG Acetylcysteine 200 mg Q6HWA NEB 03/04/24 00:00 03/05/24 06:05 200 MG Albumin Human 100 ml @ 100 mls/hr PRN PRN IV 03/04/24 08:15 03/04/24 10:14 100 MLS/HR Norepinephrine Bitartrate 250 ml @ 3.75 mls/hr Q24H IV 03/04/24 10:45 03/04/24 10:45 3.75 MLS/HR objective The patient is well-nourished and well-developed with no distress. MENTAL STATUS: Subjective CRANIAL NERVES: Pupils are equal round and reactive to light briskly, normal external eye movement, normal sensation and motor examination in the lateral trigeminal nerve distribution, no facial weakness SENSATION: Find the pinprick and light touch MOTOR: Normal tone in the upper and lower extremity. Normal muscle bulk. No fasciculations. He moves extremities minimally REFLEXES: Deep tendon reflexes are symmetrical. No pathological reflexes. CEREBELLAR/COORDINATION: Deferred GAIT/STATION: deferred. laboratory and microbiology Laboratory Tests 03/05/24 05:35 Test 03/05/24 05:35 Range/Units Serum Glucose 124 H 74-106 mg/dL Problem List Abnormal CT brain scan, to rule out stroke Coma, resolved Metabolic encephalopathy Hypoxic encephalopathy Toxic encephalopathy Cardiopulmonary arrest Acute respiratory failure Metabolic acidosis Respiratory acidosis Leukocytosis to rule out sepsis Shock liver Chronic kidney failure Paroxysmal AFib RVR Anisocoria, uncertain clinical significance Assessment/Plan Monitoring Supportive treatment Follow-up lab ICU care Respiratory support Stabilize vitals Oxygen Heparin drip GI prophylaxis Hemodialysis More recommendation per clinical course This medical document was created using an electronic medical record system with [employer] dictation system. Although this document has been carefully reviewed, there may still be some phonetic and typographical errors. These areas are purely typographical due to imperfections of the software programs, and do not reflect any compromise in the patient's medical care Prognosis poor Dietary Evaluation Review Comments: 1) If GI is accessible consider Glucerna 1.2 @ 75 ml/hr goal rate as tolerated 2) If pt remains NPO >7 days consider TPN to meet at least 75% of estimated needs 3) Advance pt diet when medically feasible to a Renal Specific K2,Low Phos,SAM,2gmNa,80gPro diet (if not receiving dialysis) 4) Continue current plan of care Expected Outcomes/Goals: 1) Pt to receive adequate nutrition support within 7 days of NPO status 2) Pt diet to advance 3) Pt labs to improve 4) F/U in 2-3 days Plan discussed with: Patient, Other GUSTAVO AVELAR MD Mar 05, 2024 10:55
--- NOTE | 2024-03-05 13:34 | DVHPNRES ---
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 Patient was brought to the hospital via EMS for worsening shortness of breath for past few days as per mother. As per mother patient was complaining having difficulty breathing which was progressively worsening that prompted her to call EMS.. Initially patient was on CPAP on arrival to EMS however patient was intubated in emergency department. After intubation patient blood pressure progressively worsening and patient had cardiac arrest with pea . Code blue was called, down time was 11 minutes and ROSC was achieved after 11 minutes of code blue. PSH: None as per mother. Home meds: Metoprolol succinate 50 mg daily, Eliquis 5 mg p.o. b.i.d., sevelamer carbonate 800 mg p.o. t.i.d., sodium bicarbonate 650 mg p.o. q.i.d., tamsulosin 0.4 mg p.o. q.a.m.,Amlodipine 10 mg p.o. daily. Social history: NAD Family history: NAD Patient seen and examined in ICU. Currently on nasal cannula. Undergoing physical therapy, swallow test. Remove NG tube. Plan to do tunnel cath for dialysis possibly tomorrow or day after tomorrow. Objective vital signs Vital Sign Date Time Temp Pulse Resp B/P (MAP) Pulse Ox O2 Delivery O2 Flow Rate FiO2 03/05/24 11:48 102 18 93 03/05/24 11:42 Nasal Cannula 1.0 03/05/24 11:42 24 03/05/24 06:30 99.5 144/98 (113) 99.5 Total Intake and Output 03/04/24 03/04/24 03/05/24 15:00 23:00 07:00 Intake Total 155.75 ml 258 ml 391 ml Output Total 0 ml 950 ml 1450 ml Balance 155.75 ml -692 ml -1059 ml medications Current Medications Medications Dose Ordered Sig/Kishan Route Start Time Stop Time Status Last Admin Dose Admin Ondansetron HCl 4 mg Q4HP PRN IV 02/19/24 19:00 Enoxaparin Sodium 40 mg BID SC 02/19/24 22:00 UNV Nitroglycerin 0.4 mg Q5MINP PRN SL 02/19/24 19:00 Cefepime HCl 50 ml @ 12.5 mls/hr DAILY IV 02/20/24 10:00 UNV Phenylephrine HCl 250 ml @ 30 mls/hr Q8H20M IV 02/19/24 19:45 UNV Dextrose 50 ml UD PRN IV 02/20/24 00:15 Cancel Calcium Gluconate/ Sodium Chloride 50 ml @ 100 mls/hr Q30M IV 02/20/24 08:15 02/20/24 09:14 Cancel Vancomycin HCl 0 ml @ 0 mls/hr UD IV 02/20/24 08:15 Pantoprazole Sodium 40 mg DAILY IV 02/20/24 10:00 03/05/24 10:43 40 MG Meropenem 50 ml @ 17 mls/hr Q12HR IV 02/20/24 10:00 03/05/24 10:27 17 MLS/HR Amiodarone HCl 200 mg Q12HR PO 02/21/24 22:00 03/05/24 10:26 200 MG Diagnostic Test (Pha) 1 strip Q6HR 02/25/24 18:00 03/05/24 12:00 1 STRIP Insulin Human Regular Q6HR SC 02/25/24 18:00 03/03/24 06:16 2 UNITS Dextrose 50 ml UD PRN IV 02/25/24 15:00 Calcium Acetate 667 mg TID NG 02/26/24 22:00 03/05/24 12:48 667 MG Sodium Chloride 10 ml QSHIFT@10,22 IV 02/29/24 22:00 03/05/24 10:37 10 ML Heparin Sodium/ Dextrose 250 ml @ 19 mls/hr [id number] IV 03/02/24 20:00 03/05/24 10:58 19 MLS/HR Furosemide 40 mg BIDD IV 03/03/24 18:00 03/05/24 06:20 40 MG Enteral Nutritional Formula 1,000 ml 40ML/HR NG 03/03/24 15:30 03/04/24 12:50 1,000 ML Levalbuterol HCl 0.625 mg Q6HWA NEB 03/04/24 00:00 03/05/24 11:42 0.625 MG Acetylcysteine 200 mg Q6HWA NEB 03/04/24 00:00 03/05/24 11:42 200 MG Albumin Human 100 ml @ 100 mls/hr PRN PRN IV 03/04/24 08:15 03/04/24 10:14 100 MLS/HR Norepinephrine Bitartrate 250 ml @ 3.75 mls/hr Q24H IV 03/04/24 10:45 03/04/24 10:45 3.75 MLS/HR Examination General Appearance: Cooperative. Well developed. Well nourished. Now on Oxymizer now. Head Exam: Normal inspection Neck Exam: Normal inspection. Non-tender. Normal alignment Pulmonary/Respiratory: Chest non-tender. Clear bilateral breath sounds Cardiovascular/Chest: Regular rate and rhythm. No murmurs. No JVD. Peripheral Pulses: 2+ Radial (R). 2+ Radial (L). 2+ Pedal (R). 2+ Pedal (L) Abdominal Exam: Normal bowel sounds. Soft. Nontender. No hepatospenomegaly. No masses Ankle Exam: Negative ankle edema Lower extremities: Negative lower extremity edema Neuro/Mental Status: A&O x4. Coherent laboratory and microbiology Laboratory Tests 03/05/24 05:35 Test 03/05/24 05:35 Range/Units Serum Glucose 124 H 74-106 mg/dL Microbiology Date/Time Source Procedure Growth Status 03/03/24 21:08 Sputum Gram Stain - Final Resulted 03/03/24 21:08 Sputum Respiratory Culture - Preliminary Resulted 02/26/24 14:18 Urine - Catheterized Urine Culture - Final Complete 02/26/24 12:00 Blood Blood Culture - Final NO GROWTH AFTER 5 DAYS OF INCUBATION. Complete 02/19/24 22:00 Nose MRSA Screen - Final Complete Problem List/Assessment/Plan Problem List/Assessment/Plan Neurology Subacute versus chronic stroke -CT head(03/21/24):Small lower density in the anterior inferior left frontal lobe and in the anterior aspect of the left internal capsule which may be age- indeterminate or subacute to chronic infarcts. -neurology consultation Extubated 03/03/24 CARDIOVASCULAR Cardiac arrest SP ROSC -Coded on 02/19/24. Downtime 11 minutes. Septic shock due to Gram-positive/Gram-negative pneumonia, -Off vasopressor now. -IV antibiotic with meropenem and vancomycin -Discontinue steroids given hemodynamic stability with one pressor. -CT chest(03/21/24):CT scan of chest and abdomen:1. CHF/volume overload with mild cardiomegaly, small to moderate bilateral pleural effusions, interstitial pulmonary edema, diffuse body wall edema and mild ascites. 2. Patchy and confluent airspace consolidations in all 5 lobes which could reflect multifocal pneumonia and/or pulmonary edema. 3. Endotracheal , gastric tubes, and right IJ central venous catheter are in place as described. 4. Right posterior approach percutaneous nephrostomy tube in place. No hydronephrosis in either kidney. 5. Bilateral urothelial thickening and diffuse bladder wall thickening. Correlate with urinalysis for ascending infection and cystitis, respectively. 6. Nonobstructing bilateral renal calculi. 7. Moderate retained stool in the colon. -repeat blood, urine, sputum culture. Negative T allow. NSTEMI type 2 likely due to above -continue current management of septic shock -cardiology: No origin coronary Angiography needed at this point -EKG: Sinus tachycardia with no ST elevation. Acute on chronic HFrEF( EF 30%) -Echo(02/20):Severely reduced left ventricular systolic function with estimated ejection fraction 15% in a global fashion. -BNP(02/19/24):2390 -underwent dialysis(03/04/24): NO fluid removed lactic acidosis due to septic shock:Resolved Afib with RVR: Rate controlled. -continue Heparin drip -Amiodarone 200 mg BID via GT tube. RESPIRATORY Acute hypoxic respiratory failure due to pneumonia -continue current management of septic shock -On NC Pulmonary edema -Repeat Chest xray in AM /KIDNEY YOMI due to VMN in setting of septic shock and CHF -On dialysis -Continue monitor I/O -Nephrology on board -Lasix 40 mg IV BID -Plan to do tunnel cath for dialysis ? Acute cystitis -Continue antibiotics with meropenam and vancomycin Nonobstructing bilateral renal calculi with Right nephrostomy -Underwent bilateral nephrostomy ,currently has right nephrostomy tube. -nephrostomy tube patent -repeat urine culture -Urology consultation -IR consultation to exchange nephrostomy tube Hyperkalemia; resolved GI Mild ascites -Continue monitor Constipation -PRN lactulose ENDO Uncontrolled diabetes mellitus type 2, HGB A1c 7.4 -initially patient was on insulin drip, discontinued given lower trend of glucose -moderate insulin sliding scale Hypocalcemia and hyperphosphatemia -continue with dialysis. LINES Right IJ (02/19/24): Removed on 02/29/2024. Right PICC line insertion on 02/29/2024. Left IJ Sravan cath(02/20/24) Chantal (02/19/24): Removed Intubated (02/19/24) Extubated (03/03/24) Barfield GT tube: removed NUTRITION Start oral diet as tolerated DVT Prophylaxis: heparin PUD prophylaxis: protonix. Code status discussed with mother greater than 22 minutes full code. Critical care time > 64 minutes- including dw family(Mother) Plan discussed with Dr Marina Plan discussed with: Patient, Other (RN) My Orders My Orders Orders - FLORINA DE Procedure Category Date Status Time Chest Portable XY 03/05/24 Resulted 03:15 Transfer Orders XFER 03/05/24 Transmitted 12:56 Dietary Evaluation Review Comments: 1) If GI is accessible consider Glucerna 1.2 @ 75 ml/hr goal rate as tolerated 2) If pt remains NPO >7 days consider TPN to meet at least 75% of estimated needs 3) Advance pt diet when medically feasible to a Renal Specific K2,Low Phos,SAM,2gmNa,80gPro diet (if not receiving dialysis) 4) Continue current plan of care Expected Outcomes/Goals: 1) Pt to receive adequate nutrition support within 7 days of NPO status 2) Pt diet to advance 3) Pt labs to improve 4) F/U in 2-3 days Date of Service: Mar 05, 2024 Billing Provider: MAXIMILIANO CUENCA MD Common Visit Codes: [id number] CARE 30-74 MIN FLORINA DE Mar 05, 2024 13:34 MAXIMILIANO CUENCA MD Mar 06, 2024 09:23
[2024-03-05] MEDS: VANCOMYCIN 500 MG in D5W 5% 100 ML IV ONE (14:00)
[2024-03-06] VITALS (31 sets, daily range): BP systolic 102–151; BP diastolic 67–98; PULSE 76–108; RESP 11–27; TEMP 97.8–98.7; O2SAT 90–99
[2024-03-06 05:14] LABS: Chloride 105 mmol/L (98-107); Potassium 3.7 mmol/L (3.5-5.1); Sodium 139 mmol/L (136-145)
[2024-03-06 05:15] LABS: Anion Gap 8 (5-15); Calcium 9.2 mg/dL (8.7-10.4); Carbon Dioxide 26 mmol/L (20-31)
[2024-03-06 05:20] LABS: BUN/Creatinine Ratio 8.8 (10.0-20.0); Blood Urea Nitrogen 42 mg/dL (9-23); Glucose 117 mg/dL (74-106)
[2024-03-06 05:31] LABS: INR 1.24 (0.9-1.15); Prothrombin Time 12.9 sec (9.3-11.8)
[2024-03-06 05:37] LABS: Partial Thromboplastin Time 95.4 SEC (24.5-34.5)
[2024-03-06] MEDS: HEPARIN DRIP/D5W 100UNITS/ML 250 ML IV SCH (06:54)
[2024-03-06 07:03] LABS: Basophils # (auto) 0.3 10 ^3/uL (0-0.2); Basophils % (auto) 1.5 % (0.0-2.0); Eosinophils # (auto) 0.4 10 ^3/uL (0-0.8); Eosinophils % (auto) 2.1 % (0.0-7.0); Hematocrit 34.7 % (41.0-53.0); Hemoglobin 11.1 g/dL (13.5-17.5); Lymphocytes # (auto) 3.4 10 ^3/uL (0.4-5.4); Lymphocytes % (auto) 19.5 % (10.0-50.0); Mean Corpuscular Hemoglobin 28.7 pg (28.0-32.0); Mean Corpuscular Volume 89.8 fL (80.0-100.0); Monocytes % (auto) 11.7 % (0.0-12.0); Neutrophils # (auto) 11.3 10 ^3/uL (1.6-8.6); Neutrophils % (auto) 65.2 % (37.0-80.0); Platelet Count (auto) 449 10^3/uL (140-450); Red Blood Cells 3.87 10^6/uL (4.5-5.90); Red Cell Distribution Width 16.2 % (11.8-14.3); White Blood Cell 17.3 10^3/uL (4.4-10.8)
[2024-03-06] MEDS ORDERED: BACTRIM 5MG/KG Q8HR PER RX 0 ML IV SCH (09:15)
--- NOTE | 2024-03-06 10:07 | DVHPN2 ---
Progress Note - Dictate Date Seen: Mar 06, 2024 Medical Necessity Reason Pt with a Central, PICC or Fol: Yes The following are medically ne: Central Line, Barfield Catheter Reason for barfield catheter: Bladder Retention/Obstruc, Strict I&O Subjective Mr. Gilmore is a 40 years old left-handed gentleman with a history of hypertension, diabetes, congestive heart failure, chronic kidney disease, the patient was brought to the [facility] on 02/19/2024 with a chief company of shortness breath, his CT brain scan showed evidence suggestive a stroke, I have seen and examined the patient, I discussed with his nurse, he is awake, oriented x3. Again he confirms he has been healthy, and he practices martial art 2-3 times weekly, and he had never had similar problem before Blood culture, 02/19/2024: UDS, 02/19/2024: Negative ABG, 02/19/2024: metabolic and respiratory acidosis, 02/20/2024: Metabolic acidosis WBC/HB/PLT/MCV, 02/20/24: 25.1/10.2/418/90.8 PT/INR/PTT, 02/22/2024: 11.9/1.13/55.2, 02/24/2024: 11.7/1.1/47 BUN/CR, 02/19/2024: 74/5.35 GFR, 02/19/2024: 12 HGB A1c, 02/10/2024: 76 Glucose, 02/20/2024: 469, 468, 475, 437 Lactic acid, 02/19/2024: 4.2, three, two TBI/AST/ALT/AP, 02/20/2024: 0.5/46/59/163 Troponin one high sensitivity, 02/19/2024: 238, 652, 1010, 06/22/2023: 1886 Beta h hydroxybutyric acid, 02/20/2024: 0.116 TG/HDL/LDL/HDL, 01/2024, 125/193/121/52 EEG : Remarkably abnormal EEG Carotid Doppler, 02/22/2024: 1. No hemodynamically significant stenosis noted in the right carotid system. 2. Nonvisualized left carotid system due to overlying bandage material Chest, 02/19/2024: Bilateral pleural effusions CT head, 02/19/2024: 1. No acute intracranial hemorrhage or mass effect. 2. Mild nonspecific white matter disease which may be related to chronic small-vessel ischemia. 3. Small lower density in the anterior inferior left frontal lobe and in the anterior aspect of the left internal capsule which may be age- indeterminate or subacute to chronic infarcts. 4. Partially imaged dental caries and periapical lucencies in maxillary teeth CT head 02/21/2024: No acute intracranial abnormality. No significant interval change. vital signs Vital Sign Date Time Temp Pulse Resp B/P (MAP) Pulse Ox O2 Delivery O2 Flow Rate FiO2 03/06/24 09:10 117/80 03/06/24 08:00 98.5 104 27 90 98.5 03/06/24 06:46 Room Air* 0 21 Total Intake and Output 03/05/24 03/05/24 03/06/24 15:00 23:00 07:00 Intake Total 202 ml 444 ml 414 ml Output Total 0 ml 1400 ml 1025 ml Balance 202 ml -956 ml -611 ml medications Current Medications Medications Dose Ordered Sig/Kishan Route Start Time Stop Time Status Last Admin Dose Admin Ondansetron HCl 4 mg Q4HP PRN IV 02/19/24 19:00 Enoxaparin Sodium 40 mg BID SC 02/19/24 22:00 UNV Nitroglycerin 0.4 mg Q5MINP PRN SL 02/19/24 19:00 Cefepime HCl 50 ml @ 12.5 mls/hr DAILY IV 02/20/24 10:00 UNV Phenylephrine HCl 250 ml @ 30 mls/hr Q8H20M IV 02/19/24 19:45 UNV Dextrose 50 ml UD PRN IV 02/20/24 00:15 Cancel Calcium Gluconate/ Sodium Chloride 50 ml @ 100 mls/hr Q30M IV 02/20/24 08:15 02/20/24 09:14 Cancel Vancomycin HCl 0 ml @ 0 mls/hr UD IV 02/20/24 08:15 Pantoprazole Sodium 40 mg DAILY IV 02/20/24 10:00 03/06/24 09:09 40 MG Amiodarone HCl 200 mg Q12HR PO 02/21/24 22:00 03/06/24 09:09 200 MG Diagnostic Test (Pha) 1 strip Q6HR 10/28/24 18:00 03/06/24 05:40 1 STRIP Insulin Human Regular Q6HR SC 02/25/24 18:00 03/03/24 06:16 2 UNITS Dextrose 50 ml UD PRN IV 02/25/24 15:00 Calcium Acetate 667 mg TID NG 02/26/24 22:00 03/06/24 05:27 667 MG Sodium Chloride 10 ml QSHIFT@10,22 IV 02/29/24 22:00 03/06/24 09:09 10 ML Furosemide 40 mg BIDD IV 03/03/24 18:00 03/06/24 05:27 40 MG Enteral Nutritional Formula 1,000 ml 40ML/HR NG 03/03/24 15:30 03/04/24 12:50 1,000 ML Levalbuterol HCl 0.625 mg Q6HWA NEB 03/04/24 00:00 03/06/24 06:46 0.625 MG Acetylcysteine 200 mg Q6HWA NEB 03/04/24 00:00 03/06/24 06:46 200 MG Albumin Human 100 ml @ 100 mls/hr PRN PRN IV 03/04/24 08:15 03/04/24 10:14 100 MLS/HR Norepinephrine Bitartrate 250 ml @ 3.75 mls/hr Q24H IV 03/04/24 10:45 03/04/24 10:45 3.75 MLS/HR Heparin Sodium/ Dextrose 250 ml @ 16 mls/hr [id number] IV 03/06/24 07:00 Trimethoprim/ Sulfamethoxazole 0 ml @ 0 mls/hr PER PHARMACY IV 03/06/24 09:15 Trimethoprim/ Sulfamethoxazole 8.75 ml/Dextrose 258.75 ml @ 173.333 mls/hr Q12H IV 03/06/24 10:00 objective The patient is well-nourished and well-developed with no distress. MENTAL STATUS: Subjective CRANIAL NERVES: Pupils are equal round and reactive to light briskly, normal external eye movement, normal sensation and motor examination in the lateral trigeminal nerve distribution, no facial weakness SENSATION: Fine to the pinprick and light touch MOTOR: Normal tone in the upper and lower extremity. Normal muscle bulk. No fasciculations. He moves extremities minimally REFLEXES: Deep tendon reflexes are symmetrical. No pathological reflexes. CEREBELLAR/COORDINATION: No ataxia GAIT/STATION: deferred. laboratory and microbiology Laboratory Tests 03/06/24 04:50 Test 03/06/24 04:50 Range/Units Serum Glucose 117 H 74-106 mg/dL Problem List Abnormal CT brain scan, to rule out stroke Coma, resolved Metabolic encephalopathy Hypoxic encephalopathy Toxic encephalopathy Cardiopulmonary arrest Acute respiratory failure Metabolic acidosis Respiratory acidosis Leukocytosis to rule out sepsis Shock liver Chronic kidney failure Hot attack Paroxysmal AFib RVR Anisocoria, uncertain clinical significance Assessment/Plan Monitoring Supportive treatment Follow-up lab [facility] care Respiratory support Stabilize vitals Oxygen Heparin drip GI prophylaxis Hemodialysis More recommendation per clinical course This medical document was created using an electronic medical record system with [employer] dictation system. Although this document has been carefully reviewed, there may still be some phonetic and typographical errors. These areas are purely typographical due to imperfections of the software programs, and do not reflect any compromise in the patient's medical care Prognosis poor Dietary Evaluation Review Comments: 1) If GI is accessible consider Glucerna 1.2 @ 75 ml/hr goal rate as tolerated 2) If pt remains NPO >7 days consider TPN to meet at least 75% of estimated needs 3) Advance pt diet when medically feasible to a Renal Specific K2,Low Phos,SAM,2gmNa,80gPro diet (if not receiving dialysis) 4) Continue current plan of care Expected Outcomes/Goals: 1) Pt to receive adequate nutrition support within 7 days of NPO status 2) Pt diet to advance 3) Pt labs to improve 4) F/U in 2-3 days Plan discussed with: Patient, Other GUSTAVO AVELAR MD Mar 06, 2024 10:07
--- NOTE | 2024-03-06 11:13 | MEDREC ---
[facility] Intervention Section I [facility] Intervention: Review courses of therapy (ACCORDING TO IDSA GUIDELINE, ISOLATION OF STENOTROPHOMONAS MALTOPHILIA CAN REPRESENT COLONIZATION, BUT IF TREATMENT IS NEEDED, A COMBINATION BETWEEN BACTRIM AND LEVOFLOXACIN (OR CEFIDOROCOL OR MINOCYCLINE) ARE RECOMMENDED. IN ADDITION, BACTRIM CAN ALSO COVER FOR GRAM POSITIVE, (INCLUDING MRSA). PLEASE CONSIDER ADDING LEVOFLOXACIN AND D/C VANCOMYCIN ) GUZMAN FISHMAN Mar 06, 2024 11:13
[2024-03-06] MEDS: SULFAMETH TRIMETH IV SCH (11:59)
[2024-03-06] MEDS: D5W 5% IV SCH (11:59)
[2024-03-06 13:24] LABS: INR 1.22 (0.9-1.15); Partial Thromboplastin Time 56.3 SEC (24.5-34.5); Prothrombin Time 12.7 sec (9.3-11.8)
[2024-03-06] MEDS: levoFLOXacin 250MG 50 ML IV ONE (14:15)
[2024-03-06] MEDS: levoFLOXacin 500MG 100 ML IV ONE (14:16)
--- NOTE | 2024-03-06 14:48 | DVHPN2 ---
Progress Note Date Seen: Mar 06, 2024 Medical Necessity Reason Pt with a Central, PICC or Fol: Yes The following are medically ne: Central Line, Barfield Catheter Reason for barfield catheter: Bladder Retention/Obstruc, Strict I&O Subjective Patient reports: No new complaints, Feels better Review of Systems: HEENT:Normal, CVS:Normal, RESPIRATORY:Normal, GI:Normal, :Normal, MSK:Normal, NEURO:Normal Objective vital signs Vital Sign Date Time Temp Pulse Resp B/P (MAP) Pulse Ox O2 Delivery O2 Flow Rate FiO2 03/06/24 12:00 98.4 97 13 134/89 (104) 93 98.4 03/06/24 12:00 Room Air* 0 21 Total Intake and Output 03/05/24 03/05/24 03/06/24 15:00 23:00 07:00 Intake Total 202 ml 444 ml 414 ml Output Total 0 ml 1400 ml 1025 ml Balance 202 ml -956 ml -611 ml medications Current Medications Medications Dose Ordered Sig/Kishan Route Start Time Stop Time Status Last Admin Dose Admin Ondansetron HCl 4 mg Q4HP PRN IV 02/19/24 19:00 Enoxaparin Sodium 40 mg BID SC 02/19/24 22:00 UNV Nitroglycerin 0.4 mg Q5MINP PRN SL 02/19/24 19:00 Cefepime HCl 50 ml @ 12.5 mls/hr DAILY IV 02/20/24 10:00 UNV Phenylephrine HCl 250 ml @ 30 mls/hr Q8H20M IV 02/19/24 19:45 UNV Dextrose 50 ml UD PRN IV 02/20/24 00:15 Cancel Calcium Gluconate/ Sodium Chloride 50 ml @ 100 mls/hr Q30M IV 02/20/24 08:15 02/20/24 09:14 Cancel Pantoprazole Sodium 40 mg DAILY IV 02/20/24 10:00 03/06/24 09:09 40 MG Amiodarone HCl 200 mg Q12HR PO 02/21/24 22:00 03/06/24 09:09 200 MG Diagnostic Test (Pha) 1 strip Q6HR 02/25/24 18:00 03/06/24 11:43 1 STRIP Insulin Human Regular Q6HR SC 02/25/24 18:00 03/03/24 06:16 2 UNITS Dextrose 50 ml UD PRN IV 02/25/24 15:00 Calcium Acetate 667 mg TID NG 02/26/24 22:00 03/06/24 14:15 667 MG Sodium Chloride 10 ml QSHIFT@10,22 IV 02/29/24 22:00 03/06/24 09:09 10 ML Furosemide 40 mg BIDD IV 03/03/24 18:00 03/06/24 05:27 40 MG Enteral Nutritional Formula 1,000 ml 40ML/HR NG 03/03/24 15:30 03/04/24 12:50 1,000 ML Levalbuterol HCl 0.625 mg Q6HWA NEB 03/04/24 00:00 03/06/24 11:42 0.625 MG Acetylcysteine 200 mg Q6HWA NEB 03/04/24 00:00 03/06/24 11:42 200 MG Albumin Human 100 ml @ 100 mls/hr PRN PRN IV 03/04/24 08:15 03/04/24 10:14 100 MLS/HR Norepinephrine Bitartrate 250 ml @ 3.75 mls/hr Q24H IV 03/04/24 10:45 03/04/24 10:45 3.75 MLS/HR Heparin Sodium/ Dextrose 250 ml @ 16 mls/hr [id number] IV 03/06/24 07:00 Trimethoprim/ Sulfamethoxazole 0 ml @ 0 mls/hr PER PHARMACY IV 03/06/24 09:15 Trimethoprim/ Sulfamethoxazole 8.75 ml/Dextrose 258.75 ml @ 173.333 mls/hr Q12H IV 03/06/24 10:00 03/06/24 11:59 173.333 MLS/HR Levofloxacin/ Dextrose 100 ml @ 100 mls/hr Q48H IV 03/08/24 12:00 Examination: GENERAL:Normal, HEENT:Normal, NECK:Normal, LUNGS:Normal, CVS:Normal, ABDOMEN:Normal, MSK:Normal, SKIN:Normal, NEURO:Normal, :Abnormal laboratory and microbiology Laboratory Tests 03/06/24 04:50 Test 03/06/24 04:50 Range/Units Serum Glucose 117 H 74-106 mg/dL Microbiology Date/Time Source Procedure Growth Status 03/04/24 17:46 Blood Blood Culture - Preliminary NO GROWTH AFTER 24 HOURS OF INCUBATION. Resulted 03/03/24 21:08 Sputum Gram Stain - Final Complete 03/03/24 21:08 Respiratory Culture - Final Stenotrophomonas maltophilia Complete 02/26/24 14:18 Urine - Catheterized Urine Culture - Final Complete 02/19/24 22:00 Nose MRSA Screen - Final Complete Problem List/Assessment/Plan Problem List/Assessment/Plan Acute kidney injury superimposed Chronic Kidney Disease 4/ 5 secondary hemodynamic mediated Acute respiratory failure, intubated on ventilator Septic shock Obstructive uropathy Bilateral nephrolithiasis Right nephrostomy tube--defer to urology Congestive heart failure exacerbation Bilateral pneumonia Diabetes mellitus type 2 Hyperglycemia Anemia of chronic kidney disease Recommendations HD tomorrow ,Need tunneled cath by IR ,, current zuleyma cath not working well extubated Chair time with DCD Plan discussed with: Other My Orders My Orders Orders - REBECCA NAIK MD Procedure Category Date Status Time Hemodialysis Orders ORDERS 03/06/24 Transmitted 04:00 * Cogeneration Operator CONS 03/06/24 Transmitted Consult Dietary Evaluation Review Comments: 1) If GI is accessible consider Glucerna 1.2 @ 75 ml/hr goal rate as tolerated 2) If pt remains NPO >7 days consider TPN to meet at least 75% of estimated needs 3) Advance pt diet when medically feasible to a Renal Specific K2,Low Phos,SAM,2gmNa,80gPro diet (if not receiving dialysis) 4) Continue current plan of care Expected Outcomes/Goals: 1) Pt to receive adequate nutrition support within 7 days of NPO status 2) Pt diet to advance 3) Pt labs to improve 4) F/U in 2-3 days REBECCA NAIK MD Mar 06, 2024 14:48
[2024-03-06 19:17] LABS: INR 1.25 (0.9-1.15); Partial Thromboplastin Time 67.4 SEC (24.5-34.5)
--- NOTE | 2024-03-06 20:57 | DVHPNRES ---
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 Patient was brought to the hospital via EMS for worsening shortness of breath for past few days as per mother. As per mother patient was complaining having difficulty breathing which was progressively worsening that prompted her to call EMS.. Initially patient was on CPAP on arrival to EMS however patient was intubated in emergency department. After intubation patient blood pressure progressively worsening and patient had cardiac arrest with pea . Code blue was called, down time was 11 minutes and ROSC was achieved after 11 minutes of code blue. PSH: None as per mother. Home meds: Metoprolol succinate 50 mg daily, Eliquis 5 mg p.o. b.i.d., sevelamer carbonate 800 mg p.o. t.i.d., sodium bicarbonate 650 mg p.o. q.i.d., tamsulosin 0.4 mg p.o. q.a.m.,Amlodipine 10 mg p.o. daily. Social history: NAD Family history: NAD Currently on nasal cannula. Plan to do tunnel cath and nephrostomy tube removal tomorrow morning. Downgraded to tele. Objective vital signs Vital Sign Date Time Temp Pulse Resp B/P (MAP) Pulse Ox O2 Delivery O2 Flow Rate FiO2 03/06/24 18:35 94 Room Air 0.0 03/06/24 18:35 21 03/06/24 18:33 95 16 03/06/24 18:00 125/84 (98) 03/06/24 16:00 97.8 97.8 Total Intake and Output 03/05/24 03/05/24 03/06/24 15:00 23:00 07:00 Intake Total 202 ml 444 ml 414 ml Output Total 0 ml 1400 ml 1025 ml Balance 202 ml -956 ml -611 ml medications Current Medications Medications Dose Ordered Sig/Kishan Route Start Time Stop Time Status Last Admin Dose Admin Ondansetron HCl 4 mg Q4HP PRN IV 02/19/24 19:00 Enoxaparin Sodium 40 mg BID SC 02/19/24 22:00 UNV Nitroglycerin 0.4 mg Q5MINP PRN SL 02/19/24 19:00 Cefepime HCl 50 ml @ 12.5 mls/hr DAILY IV 02/20/24 10:00 UNV Phenylephrine HCl 250 ml @ 30 mls/hr Q8H20M IV 02/19/24 19:45 UNV Dextrose 50 ml UD PRN IV 02/20/24 00:15 Cancel Calcium Gluconate/ Sodium Chloride 50 ml @ 100 mls/hr Q30M IV 02/20/24 08:15 02/20/24 09:14 Cancel Pantoprazole Sodium 40 mg DAILY IV 02/20/24 10:00 03/06/24 09:09 40 MG Amiodarone HCl 200 mg Q12HR PO 02/21/24 22:00 03/06/24 09:09 200 MG Diagnostic Test (Pha) 1 strip Q6HR 02/25/24 18:00 03/06/24 17:20 1 STRIP Insulin Human Regular Q6HR SC 02/25/24 18:00 03/03/24 06:16 2 UNITS Dextrose 50 ml UD PRN IV 02/25/24 15:00 Calcium Acetate 667 mg TID NG 02/26/24 22:00 03/06/24 14:15 667 MG Sodium Chloride 10 ml QSHIFT@10,22 IV 02/29/24 22:00 03/06/24 09:09 10 ML Furosemide 40 mg BIDD IV 03/03/24 18:00 03/06/24 17:22 40 MG Enteral Nutritional Formula 1,000 ml 40ML/HR NG 03/03/24 15:30 03/04/24 12:50 1,000 ML Levalbuterol HCl 0.625 mg Q6HWA NEB 03/04/24 00:00 03/06/24 18:32 0.625 MG Acetylcysteine 200 mg Q6HWA NEB 03/04/24 00:00 03/06/24 18:32 200 MG Albumin Human 100 ml @ 100 mls/hr PRN PRN IV 03/04/24 08:15 03/04/24 10:14 100 MLS/HR Norepinephrine Bitartrate 250 ml @ 3.75 mls/hr Q24H IV 03/04/24 10:45 03/04/24 10:45 3.75 MLS/HR Heparin Sodium/ Dextrose 250 ml @ 16 mls/hr [id number] IV 03/06/24 07:00 03/06/24 18:59 16 MLS/HR Trimethoprim/ Sulfamethoxazole 0 ml @ 0 mls/hr PER PHARMACY IV 03/06/24 09:15 Trimethoprim/ Sulfamethoxazole 8.75 ml/Dextrose 258.75 ml @ 173.333 mls/hr Q12H IV 03/06/24 10:00 03/06/24 11:59 173.333 MLS/HR Levofloxacin/ Dextrose 100 ml @ 100 mls/hr Q48H IV 03/08/24 12:00 Examination General Appearance: Cooperative. Well developed. Well nourished. Now on Oxymizer now. Head Exam: Normal inspection Neck Exam: Normal inspection. Non-tender. Normal alignment Pulmonary/Respiratory: Chest non-tender. Clear bilateral breath sounds Cardiovascular/Chest: Regular rate and rhythm. No murmurs. No JVD. Peripheral Pulses: 2+ Radial (R). 2+ Radial (L). 2+ Pedal (R). 2+ Pedal (L) Abdominal Exam: Normal bowel sounds. Soft. Nontender. No hepatospenomegaly. No masses Ankle Exam: Negative ankle edema Lower extremities: Negative lower extremity edema Neuro/Mental Status: A&O x4. Coherent laboratory and microbiology Laboratory Tests 03/06/24 04:50 Test 03/06/24 04:50 Range/Units Serum Glucose 117 H 74-106 mg/dL Microbiology Date/Time Source Procedure Growth Status 03/04/24 17:46 Blood Blood Culture - Preliminary NO GROWTH AFTER 48 HOURS OF INCUBATION. Resulted 03/03/24 21:08 Sputum Gram Stain - Final Complete 03/03/24 21:08 Respiratory Culture - Final Stenotrophomonas maltophilia Complete 02/26/24 14:18 Urine - Catheterized Urine Culture - Final Complete 02/19/24 22:00 Nose MRSA Screen - Final Complete Problem List/Assessment/Plan Problem List/Assessment/Plan Neurology Subacute versus chronic stroke -CT head(03/21/24):Small lower density in the anterior inferior left frontal lobe and in the anterior aspect of the left internal capsule which may be age- indeterminate or subacute to chronic infarcts. -neurology consultation Extubated 03/03/24 CARDIOVASCULAR Cardiac arrest SP ROSC -Coded on 02/19/24. Downtime 11 minutes. Septic shock due to Gram-positive/Gram-negative pneumonia, -Off vasopressor now. -IV antibiotic with meropenem and vancomycin -Discontinue steroids given hemodynamic stability with one pressor. -CT chest(03/21/24):CT scan of chest and abdomen:1. CHF/volume overload with mild cardiomegaly, small to moderate bilateral pleural effusions, interstitial pulmonary edema, diffuse body wall edema and mild ascites. 2. Patchy and confluent airspace consolidations in all 5 lobes which could reflect multifocal pneumonia and/or pulmonary edema. 3. Endotracheal , gastric tubes, and right IJ central venous catheter are in place as described. 4. Right posterior approach percutaneous nephrostomy tube in place. No hydronephrosis in either kidney. 5. Bilateral urothelial thickening and diffuse bladder wall thickening. Correlate with urinalysis for ascending infection and cystitis, respectively. 6. Nonobstructing bilateral renal calculi. 7. Moderate retained stool in the colon. -repeat blood, urine, sputum culture. Negative T allow. NSTEMI type 2 likely due to above -continue current management of septic shock -cardiology: No origin coronary Angiography needed at this point -EKG: Sinus tachycardia with no ST elevation. Acute on chronic HFrEF( EF 30%) -Echo(02/20):Severely reduced left ventricular systolic function with estimated ejection fraction 15% in a global fashion. -BNP(02/19/24):2390 -underwent dialysis(03/04/24): NO fluid removed lactic acidosis due to septic shock:Resolved Afib with RVR: Rate controlled. -continue Heparin drip -Amiodarone 200 mg BID via GT tube. RESPIRATORY Acute hypoxic respiratory failure due to pneumonia -continue current management of septic shock -On NC Pulmonary edema -Repeat Chest xray in AM /KIDNEY YOMI due to VMN in setting of septic shock and CHF -On dialysis -Continue monitor I/O -Nephrology on board -Lasix 40 mg IV BID -Plan to do tunnel cath for dialysis ? Acute cystitis -Continue antibiotics with meropenam and vancomycin Nonobstructing bilateral renal calculi with Right nephrostomy -Underwent bilateral nephrostomy ,currently has right nephrostomy tube. -nephrostomy tube patent -repeat urine culture -Urology consultation -IR consultation to exchange nephrostomy tube Hyperkalemia; resolved GI Mild ascites -Continue monitor Constipation -PRN lactulose ENDO Uncontrolled diabetes mellitus type 2, HGB A1c 7.4 -initially patient was on insulin drip, discontinued given lower trend of glucose -moderate insulin sliding scale Hypocalcemia and hyperphosphatemia -continue with dialysis. LINES Right IJ (02/19/24): Removed on 02/29/2024. Right PICC line insertion on 02/29/2024. Left IJ Sravan cath(02/20/24) Chantal (02/19/24): Removed Intubated (02/19/24) Extubated (03/03/24) Barfield GT tube: removed NUTRITION Start oral diet as tolerated DVT Prophylaxis: heparin PUD prophylaxis: protonix. Plan to do tunnel cath and right nephrostomy removal tomorrow a.m.. Hold heparin drip at midnight. We will resume Eliquis tomorrow. Code status discussed with mother greater than 22 minutes full code. Critical care time > 59 minutes- including dw family(Mother) Plan discussed with Dr Richard Plan discussed with: Patient, Other (RN) My Orders My Orders Orders - FLORINA DE RESIDENT Procedure Category Date Status Time Bactrim 5mg/Kg Q8hr PHA 03/06/24 In Process Per Rx (Bactrim) 09:15 Sulfameth-Trimeth PHA 03/06/24 In Process 80/16mg-Ml (Bactrim) 10:00 Levofloxacin 500mg PHA 03/08/24 In Process (Levaquin 500mg/ 100m 12:00 Transfer Orders XFER 03/06/24 Transmitted 12:34 Communication Order ORDERS 03/06/24 Transmitted 14:46 Acute Hepatitis Panel LAB 03/06/24 In Process 14:51 Dietary Evaluation Review Comments: 1) If GI is accessible consider Glucerna 1.2 @ 75 ml/hr goal rate as tolerated 2) If pt remains NPO >7 days consider TPN to meet at least 75% of estimated needs 3) Advance pt diet when medically feasible to a Renal Specific K2,Low Phos,SAM,2gmNa,80gPro diet (if not receiving dialysis) 4) Continue current plan of care Expected Outcomes/Goals: 1) Pt to receive adequate nutrition support within 7 days of NPO status 2) Pt diet to advance 3) Pt labs to improve 4) F/U in 2-3 days Date of Service: Mar 06, 2024 Billing Provider: CHELSEA RICHARD MD Common Visit Codes: [id number] CARE 30-74 MIN FLORINA DE RESIDENT Mar 06, 2024 20:57 CHELSEA RICHARD MD Mar 10, 2024 14:20
[2024-03-07] VITALS (18 sets, daily range): BP systolic 110–137; BP diastolic 47–93; PULSE 20–105; RESP 12–92; TEMP 97.8–98.7; O2SAT 90–100
[2024-03-07 01:01] LABS: INR 1.29 (0.9-1.15); Partial Thromboplastin Time 64.1 SEC (24.5-34.5); Prothrombin Time 13.4 sec (9.3-11.8)
[2024-03-07 06:27] LABS: Basophils # (auto) 0.2 10 ^3/uL (0-0.2); Hemoglobin 11.3 g/dL (13.5-17.5); Nucleated Red Blood Cells % 0.1 %
[2024-03-07 06:29] LABS: Eosinophils # (auto) 0.4 10 ^3/uL (0-0.8); Eosinophils % (auto) 2.5 % (0.0-7.0); Hematocrit 34.5 % (41.0-53.0); Lymphocytes # (auto) 3.5 10 ^3/uL (0.4-5.4); Lymphocytes % (auto) 21.6 % (10.0-50.0); Mean Corpuscular Hemoglobin 28.8 pg (28.0-32.0); Mean Corpuscular Hgb Conc. 32.6 g/dL (32.0-36.0); Mean Corpuscular Volume 88.2 fL (80.0-100.0); Monocytes % (auto) 12.2 % (0.0-12.0); Neutrophils # (auto) 10.2 10 ^3/uL (1.6-8.6); Neutrophils % (auto) 62.7 % (37.0-80.0); Platelet Count (auto) 483 10^3/uL (140-450); Red Blood Cells 3.91 10^6/uL (4.5-5.90); Red Cell Distribution Width 16.2 % (11.8-14.3); White Blood Cell 16.3 10^3/uL (4.4-10.8)
[2024-03-07 06:40] LABS: Alanine Aminotransferase 14 U/L (7-40); Albumin 3.5 g/dL (3.2-4.8); Alkaline Phosphatase 124 U/L (46-116); Anion Gap 11 (5-15); Aspartate Aminotransferase 12 U/L (13-40); Bilirubin, Total 0.3 mg/dL (0.2-1.0); Blood Urea Nitrogen 49 mg/dL (9-23); Calcium 9.4 mg/dL (8.7-10.4); Carbon Dioxide 23 mmol/L (20-31); Chloride 101 mmol/L (98-107); Glucose 89 mg/dL (74-106); Sodium 135 mmol/L (136-145); Total Protein 7.1 g/dL (5.7-8.2)
[2024-03-07] MEDS ORDERED: HEPARIN SODIUM (PORCINE) 5000 UNITS/ML 1ML VIAL ONE (09:36)
[2024-03-07] MEDS ORDERED: fentaNYL CITRATE 100 MCG/2 ML VL ONE (09:36)
[2024-03-07] MEDS ORDERED: MIDAZOLAM HCL 2MG/2ML 2ml VIAL (1mg/ml) ONE (09:36)
[2024-03-07] MEDS ORDERED: IOHEXOL 350 MG/ML 100ML IJ ONE (10:32)
[2024-03-07] MEDS ORDERED: LIDOCAINE 2%HCL (LOCAL ANESTH.) INJ 20ML MDV ONE (10:32)
[2024-03-07] MEDS ORDERED: ceFAZolin 1GM/50ML 50 ML IV ONE (10:40)
--- NOTE | 2024-03-07 12:37 | DVHPN2 ---
Progress Note Date Seen: Mar 07, 2024 Medical Necessity Reason Pt with a Central, PICC or Fol: Yes The following are medically ne: Central Line, Barfield Catheter Reason for barfield catheter: Bladder Retention/Obstruc, Strict I&O Subjective Patient reports: No new complaints Other Systems: Patient seen and examined by myself in follow-up today Patient examined hemodialysis, blood pressure stable Objective vital signs Vital Sign Date Time Temp Pulse Resp B/P (MAP) Pulse Ox O2 Delivery O2 Flow Rate FiO2 03/07/24 08:52 97.8 99 16 118/47 (70) 96 97.8 03/07/24 06:47 Room Air 03/07/24 06:47 0 21 Total Intake and Output 03/06/24 03/06/24 03/07/24 15:00 23:00 07:00 Intake Total 496.666 ml 967.333 ml 16 ml Output Total 950 ml 1000 ml Balance 496.666 ml 17.333 ml -984 ml medications Current Medications Medications Dose Ordered Sig/Kishan Route Start Time Stop Time Status Last Admin Dose Admin Ondansetron HCl 4 mg Q4HP PRN IV 02/19/24 19:00 Enoxaparin Sodium 40 mg BID SC 02/19/24 22:00 UNV Nitroglycerin 0.4 mg Q5MINP PRN SL 02/19/24 19:00 Cefepime HCl 50 ml @ 12.5 mls/hr DAILY IV 02/20/24 10:00 UNV Phenylephrine HCl 250 ml @ 30 mls/hr Q8H20M IV 02/19/24 19:45 UNV Dextrose 50 ml UD PRN IV 02/20/24 00:15 Cancel Calcium Gluconate/ Sodium Chloride 50 ml @ 100 mls/hr Q30M IV 02/20/24 08:15 02/20/24 09:14 Cancel Pantoprazole Sodium 40 mg DAILY IV 02/20/24 10:00 03/06/24 09:09 40 MG Amiodarone HCl 200 mg Q12HR PO 02/21/24 22:00 03/06/24 21:12 200 MG Diagnostic Test (Pha) 1 strip Q6HR 02/25/24 18:00 03/07/24 06:00 1 STRIP Insulin Human Regular Q6HR SC 02/25/24 18:00 03/03/24 06:16 2 UNITS Dextrose 50 ml UD PRN IV 02/25/24 15:00 Calcium Acetate 667 mg TID NG 02/26/24 22:00 03/06/24 21:12 667 MG Sodium Chloride 10 ml QSHIFT@10,22 IV 02/29/24 22:00 03/06/24 21:12 10 ML Furosemide 40 mg BIDD IV 03/03/24 18:00 03/07/24 06:58 40 MG Enteral Nutritional Formula 1,000 ml 40ML/HR NG 03/03/24 15:30 03/04/24 12:50 1,000 ML Levalbuterol HCl 0.625 mg Q6HWA NEB 03/04/24 00:00 03/07/24 06:47 0.625 MG Acetylcysteine 200 mg Q6HWA NEB 03/04/24 00:00 03/07/24 06:47 200 MG Albumin Human 100 ml @ 100 mls/hr PRN PRN IV 03/04/24 08:15 03/04/24 10:14 100 MLS/HR Heparin Sodium/ Dextrose 250 ml @ 16 mls/hr [id number] IV 03/06/24 07:00 03/06/24 18:59 16 MLS/HR Trimethoprim/ Sulfamethoxazole 0 ml @ 0 mls/hr PER PHARMACY IV 03/06/24 09:15 Trimethoprim/ Sulfamethoxazole 8.75 ml/Dextrose 258.75 ml @ 173.333 mls/hr Q12H IV 03/06/24 10:00 03/06/24 21:12 173.333 MLS/HR Levofloxacin/ Dextrose 100 ml @ 100 mls/hr Q48H IV 03/08/24 12:00 Examination: LUNGS:Normal, CVS:Normal, MSK:Normal laboratory and microbiology Laboratory Tests 03/07/24 05:59 Test 03/07/24 05:59 Range/Units Serum Glucose 89 74-106 mg/dL Microbiology Date/Time Source Procedure Growth Status 03/04/24 17:46 Blood Blood Culture - Preliminary NO GROWTH AFTER 48 HOURS OF INCUBATION. Resulted 03/03/24 21:08 Sputum Gram Stain - Final Complete 03/03/24 21:08 Respiratory Culture - Final Stenotrophomonas maltophilia Complete 02/26/24 14:18 Urine - Catheterized Urine Culture - Final Complete 02/19/24 22:00 Nose MRSA Screen - Final Complete Problem List/Assessment/Plan Problem List/Assessment/Plan Acute kidney injury superimposed Chronic Kidney Disease 4/ 5 secondary hemodynamic mediated, requiring intermittent hemodialysis Acute respiratory failure, intubated on ventilator Septic shock Obstructive uropathy Bilateral nephrolithiasis Right nephrostomy tube Congestive heart failure exacerbation Pneumonia Diabetes mellitus type 2 Hyperglycemia Iron-deficiency anemia Hyperphosphatemia RLL atelectasis due to mucus plug s/p bronchoscopy 02/26 Recommendations Continue with UF 2 L as tolerated Epogen 63069 IV post hemodialysis IV iron replacement Calcium acetate down NG tube IV antibiotics We will continue to follow Plan discussed with: Patient Dietary Evaluation Review Comments: 1) If GI is accessible consider Glucerna 1.2 @ 75 ml/hr goal rate as tolerated 2) If pt remains NPO >7 days consider TPN to meet at least 75% of estimated needs 3) Advance pt diet when medically feasible to a Renal Specific K2,Low Phos,SAM,2gmNa,80gPro diet (if not receiving dialysis) 4) Continue current plan of care Expected Outcomes/Goals: 1) Pt to receive adequate nutrition support within 7 days of NPO status 2) Pt diet to advance 3) Pt labs to improve 4) F/U in 2-3 days NICOLA CANALES MD Mar 07, 2024 12:37
--- NOTE | 2024-03-07 16:36 | DVH ---
CHEST RADIOGRAPH Indication:S/P TUNNELED CATH PLACEMENT VERIFY PLACEMENT Technique: Single frontal view of the chest was obtained COMPARISON: XY CHEST PORTABLE on DOS: 03/05/24, XY CHEST XRAY 1 VIEW on DOS: 03/04/24, XY CHEST XRAY 1 VIEW on DOS: 03/03/24 FINDINGS: Lines and Tubes: Tunneled right central venous catheter in satisfactory position. Lungs: Mild congestion Pleura: No effusion. No pneumothorax. Cardiomediastinal contours: Unremarkable Bones: Unremarkable IMPRESSION: No significant interval change.
--- NOTE | 2024-03-07 18:12 | DVHPNRES ---
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 Patient was brought to the hospital via EMS for worsening shortness of breath for past few days as per mother. As per mother patient was complaining having difficulty breathing which was progressively worsening that prompted her to call EMS.. Initially patient was on CPAP on arrival to EMS however patient was intubated in emergency department. After intubation patient blood pressure progressively worsening and patient had cardiac arrest with pea . Code blue was called, down time was 11 minutes and ROSC was achieved after 11 minutes of code blue. PSH: None as per mother. Home meds: Metoprolol succinate 50 mg daily, Eliquis 5 mg p.o. b.i.d., sevelamer carbonate 800 mg p.o. t.i.d., sodium bicarbonate 650 mg p.o. q.i.d., tamsulosin 0.4 mg p.o. q.a.m.,Amlodipine 10 mg p.o. daily. Social history: NAD Family history: NAD Patient seen and examined at bedside. Currently off oxygen. Patient underwent physical examination passed swallow test. Plan to do tunneled cath and nephrostomy tube tomorrow. Patient will continue with antibiotic IV Bactrim as patient found to be stenotrophomonas maltophilia. Objective vital signs Vital Sign Date Time Temp Pulse Resp B/P (MAP) Pulse Ox O2 Delivery O2 Flow Rate FiO2 03/07/24 16:35 98.0 90 18 115/86 (96) 97 98.0 03/07/24 10:00 Room Air 0.0 03/07/24 10:00 21 Total Intake and Output 03/06/24 03/06/24 03/07/24 15:00 23:00 07:00 Intake Total 496.666 ml 967.333 ml 16 ml Output Total 950 ml 1000 ml Balance 496.666 ml 17.333 ml -984 ml medications Current Medications Medications Dose Ordered Sig/Kishan Route Start Time Stop Time Status Last Admin Dose Admin Ondansetron HCl 4 mg Q4HP PRN IV 02/19/24 19:00 Enoxaparin Sodium 40 mg BID SC 02/19/24 22:00 UNV Nitroglycerin 0.4 mg Q5MINP PRN SL 02/19/24 19:00 Cefepime HCl 50 ml @ 12.5 mls/hr DAILY IV 02/20/24 10:00 UNV Phenylephrine HCl 250 ml @ 30 mls/hr Q8H20M IV 02/19/24 19:45 UNV Dextrose 50 ml UD PRN IV 02/20/24 00:15 Cancel Calcium Gluconate/ Sodium Chloride 50 ml @ 100 mls/hr Q30M IV 02/20/24 08:15 02/20/24 09:14 Cancel Pantoprazole Sodium 40 mg DAILY IV 02/20/24 10:00 03/07/24 14:35 40 MG Amiodarone HCl 200 mg Q12HR PO 02/21/24 22:00 03/07/24 14:35 200 MG Diagnostic Test (Pha) 1 strip Q6HR 02/25/24 18:00 03/07/24 16:43 1 STRIP Insulin Human Regular Q6HR SC 02/25/24 18:00 03/03/24 06:16 2 UNITS Dextrose 50 ml UD PRN IV 02/25/24 15:00 Sodium Chloride 10 ml QSHIFT@10,22 IV 02/29/24 22:00 03/07/24 14:35 10 ML Furosemide 40 mg BIDD IV 03/03/24 18:00 03/07/24 06:58 40 MG Levalbuterol HCl 0.625 mg Q6HWA NEB 03/04/24 00:00 03/07/24 06:47 0.625 MG Acetylcysteine 200 mg Q6HWA [facility] 03/04/24 00:00 03/07/24 06:47 200 MG Trimethoprim/ Sulfamethoxazole 0 ml @ 0 mls/hr PER PHARMACY IV 03/06/24 09:15 Trimethoprim/ Sulfamethoxazole 8.75 ml/Dextrose 258.75 ml @ 173.333 mls/hr Q12H IV 03/06/24 10:00 03/06/24 21:12 173.333 MLS/HR Levofloxacin/ Dextrose 100 ml @ 100 mls/hr Q48H IV 03/08/24 12:00 Apixaban 2.5 mg BID PO 03/07/24 22:00 UNV Examination General Appearance: Cooperative. Well developed. Well nourished. Now on Oxymizer now. Head Exam: Normal inspection Neck Exam: Normal inspection. Non-tender. Normal alignment Pulmonary/Respiratory: Chest non-tender. Clear bilateral breath sounds Cardiovascular/Chest: Regular rate and rhythm. No murmurs. No JVD. Peripheral Pulses: 2+ Radial (R). 2+ Radial (L). 2+ Pedal (R). 2+ Pedal (L) Abdominal Exam: Normal bowel sounds. Soft. Nontender. No hepatospenomegaly. No masses Ankle Exam: Negative ankle edema Lower extremities: Negative lower extremity edema Neuro/Mental Status: A&O x4. Coherent laboratory and microbiology Laboratory Tests 03/07/24 05:59 Test 03/07/24 05:59 Range/Units Serum Glucose 89 74-106 mg/dL Microbiology Date/Time Source Procedure Growth Status 03/04/24 17:46 Blood Blood Culture - Preliminary NO GROWTH AFTER 72 HOURS OF INCUBATION. Resulted 03/03/24 21:08 Sputum Gram Stain - Final Complete 03/03/24 21:08 Respiratory Culture - Final Stenotrophomonas maltophilia Complete 02/26/24 14:18 Urine - Catheterized Urine Culture - Final Complete 02/19/24 22:00 Nose MRSA Screen - Final Complete Problem List/Assessment/Plan Problem List/Assessment/Plan Neurology Subacute versus chronic stroke -CT head(03/21/24):Small lower density in the anterior inferior left frontal lobe and in the anterior aspect of the left internal capsule which may be age- indeterminate or subacute to chronic infarcts. -neurology consultation Extubated 03/03/24 CARDIOVASCULAR Cardiac arrest SP ROSC -Coded on 02/19/24. Downtime 11 minutes. Septic shock due to Gram-negative pneumonia stenotrophomonas maltophilia -Off vasopressor now. -IV antibiotic with Bactrim and Levaquin -Discontinue steroids given hemodynamic stability with one pressor. -CT chest(03/21/24):CT scan of chest and abdomen:1. CHF/volume overload with mild cardiomegaly, small to moderate bilateral pleural effusions, interstitial pulmonary edema, diffuse body wall edema and mild ascites. 2. Patchy and confluent airspace consolidations in all 5 lobes which could reflect multifocal pneumonia and/or pulmonary edema. 3. Endotracheal , gastric tubes, and right IJ central venous catheter are in place as described. 4. Right posterior approach percutaneous nephrostomy tube in place. No hydronephrosis in either kidney. 5. Bilateral urothelial thickening and diffuse bladder wall thickening. Correlate with urinalysis for ascending infection and cystitis, respectively. 6. Nonobstructing bilateral renal calculi. 7. Moderate retained stool in the colon. -repeat blood, urine, sputum culture. Negative T allow. NSTEMI type 2 likely due to above -continue current management of septic shock -cardiology: No origin coronary Angiography needed at this point -EKG: Sinus tachycardia with no ST elevation. Acute on chronic HFrEF( EF 30%) -Echo(02/20):Severely reduced left ventricular systolic function with estimated ejection fraction 15% in a global fashion. -BNP(02/19/24):2390 -underwent dialysis(03/04/24): NO fluid removed lactic acidosis due to septic shock:Resolved Afib with RVR: Rate controlled. -continue Heparin drip -Amiodarone 200 mg BID via GT tube. RESPIRATORY Acute hypoxic respiratory failure due to pneumonia -continue current management of septic shock -On NC Pulmonary edema -Repeat Chest xray in AM /KIDNEY YOMI due to VMN in setting of septic shock and CHF -On dialysis -Continue monitor I/O -Nephrology on board -Lasix 40 mg IV BID -Plan to do tunnel cath for dialysis ? Acute cystitis -Continue antibiotics with meropenam and vancomycin Nonobstructing bilateral renal calculi with Right nephrostomy -Underwent bilateral nephrostomy ,currently has right nephrostomy tube. -nephrostomy tube patent -repeat urine culture -Urology consultation -IR consultation to exchange nephrostomy tube Hyperkalemia; resolved GI Mild ascites -Continue monitor Constipation -PRN lactulose ENDO Uncontrolled diabetes mellitus type 2, HGB A1c 7.4 -initially patient was on insulin drip, discontinued given lower trend of glucose -moderate insulin sliding scale Hypocalcemia and hyperphosphatemia -continue with dialysis. LINES Right IJ (02/19/24): Removed on 02/29/2024. Right PICC line insertion on 02/29/2024. Left IJ Sravan cath(02/20/24) Glenn (02/19/24): Removed Intubated (02/19/24) Extubated (03/03/24) Barfield GT tube: removed NUTRITION Start oral diet as tolerated DVT Prophylaxis: Transitioned from heparin to Eliquis 2.5 mg b.i.d. p.o.. PUD prophylaxis: protonix. Code status discussed with mother greater than 22 minutes full code. Plan: Patient underwent tunneled cath for dialysis and prior nephrostomy tube exchange. Patient WBC count is trending down with IV antibiotic Bactrim and Levaquin for stenotrophomonas maltophilia pneumonia. Patient's oxygen requirement improved now on room air. Patient able to eat as well. Plan to stop heparin and start Eliquis 2.5 mg p.o. b.i.d. for atrial fibrillation. Continue with current management. Critical care time > 64 minutes- including dw family(Mother) Plan discussed with Dr Richard Plan discussed with: Patient, Other (Mother) My Orders My Orders Orders - FLORINA DE Procedure Category Date Status Time Insertion Of Venous XY 03/07/24 Taken Cath 11:34 Change Perc. Drain W XY 03/07/24 Taken Contrast 13:18 Complete Blood Count LAB 03/08/24 Verified 04:00 Basic Metabolic Panel LAB 03/08/24 Verified 04:00 Apixaban (Eliquis) PHA 03/07/24 Logged 22:00 Communication Order ORDERS 03/07/24 Transmitted 18:00 Dietary Evaluation Review Comments: 1) If GI is accessible consider Glucerna 1.2 @ 75 ml/hr goal rate as tolerated 2) If pt remains NPO >7 days consider TPN to meet at least 75% of estimated needs 3) Advance pt diet when medically feasible to a Renal Specific K2,Low Phos,SAM,2gmNa,80gPro diet (if not receiving dialysis) 4) Continue current plan of care Expected Outcomes/Goals: 1) Pt to receive adequate nutrition support within 7 days of NPO status 2) Pt diet to advance 3) Pt labs to improve 4) F/U in 2-3 days Date of Service: Mar 07, 2024 Billing Provider: CHELSEA RICHARD MD Common Visit Codes: 74811-[id number] CARE 30-74 MIN FLORINA DE RESIDENT Mar 07, 2024 18:12 CHELSEA RICHARD MD Mar 10, 2024 14:20
--- NOTE | 2024-03-07 18:27 | DVH ---
XY Insertion of Venous Cath, HISTORY: HD CATH PL PROCEDURE: Informed consent was obtained. The patient was placed supine on the interventional table. A limited localization ultrasound of the right neck base was obtained. The right neck base and upper chest were prepped with chlorhexidine which was allowed to dry and draped in the usual sterile fashio n. Time out was performed. IV sedation was administered. The skin and the soft tissues were infiltrat ed with 2% Lidocaine mixed with Epinephrine. With real-time ultrasound guidance, the internal jugular vein was accessed with a micropuncture kit, and an image documenting patency was recorded to PACS. A subcutaneous tunneled tract was created from the right upper chest to the venotomy site. A 14.5 Fren ch Grampian Path, 19 cm long hemodialysis catheter was advanced through the tunneled tract. Fluoroscopy was used to advance a guidewire through the internal jugular vein into the inferior vena cava. Following serial dilatation, a 15 Greenlandic peel-away sheath was introduced, though which was adva nced the catheter into the right atrium. The catheter tip position was confirmed with fluoroscopy. Th ere was satisfactory flow in both lumens. The catheter lumens were flushed with saline and heparin wa s left indwelling in the catheter. A post-procedure image of the chest was obtained. The neck incisio n site was closed with a Vicryl suture and dressed sterilely. The catheter was sutured at the skin sainz rface and exit site also dressed sterilely. No immediate complication was identified. The non tunnele d hemodialysis catheter was removed and manual pressure held to hemostasis. DAP 61 FLUOROSCOPY TIME: 1.4 minutes. SEDATION: Dr. Elier Moran was personally responsible for the administration of moderate sedation during the procedure performed, including the use of an independent trained observer who had no other duties during the procedure. The drugs utilized were IV fentanyl and versed (see nursing log for details). The total time of supervision by the attending physician was approximately 30 minutes. FINDINGS: Widely patent right/left IJV/EJV/CFV. Post procedure image demonstrates smooth course of th e hemodialysis catheter with the tip in the right atrium. IMPRESSION: Successful placement of 14.5 Greenlandic [place] Path, 19 cm long hemodialysis catheter through right tax services intern al jugular vein. Plan: Please contact IR for removal when no longer needed.
--- NOTE | 2024-03-07 18:29 | DVH ---
XY CHANGE PERC. DRAIN W CONTRAST, HISTORY: Right nephrostomy tube exchange due to sepsis and retracted. PROCEDURE: Informed consent was obtained. The patient was placed on the fluoroscopic table in a prone position and IV sedation administered. The right flank was prepped with chlorhexidine which was allo wed to dry and draped in the usual sterile fashion. Time out was performed and the soft tissues infil trated with 2% lidocaine local anesthetic. An antegrade nephrostogram was performed to confirm positi on of the previous nephrostomy tube. The tube was cut and a glidewire was inserted through the nephr ostomy tube into the ureter. The prior nephrostomy tube was removed, and a new 8.[address] ainage catheter was advanced into the renal pelvis over a wire. Completion antegrade nephrostogram de monstrates appropriate position of the new nephrostomy tube in the renal pelvis. The catheter was sec ured in place and connected to gravity drainage. A sterile dressing was applied. No immediate complic ation was identified. FLUOROSCOPY TIME: 3 minutes. CONTRAST USED: 10 mL Visi 300. SEDATION: Dr. Elier Moran was personally responsible for the administration of moderate sedation during the procedure performed, including the use of an independent trained observer who had no other duties during the procedure. The drugs utilized were IV fentanyl and versed (see nursing log for details). The total time of supervision by the attending physician was approximately 35 minutes. FINDINGS: Nephrostomy tube within pigtail coiled in the right renal pelvis. IMPRESSION: Successful exchange of a right sided nephrostomy tube, with placement of a new 8.[address] ainage catheter in the right sided renal pelvis. PLAN: Routine catheter care.
[2024-03-07] MEDS: APIXABAN 2.5 MG TAB PO SCH (21:38)
[2024-03-08] VITALS (18 sets, daily range): BP systolic 101–121; BP diastolic 58–81; PULSE 86–109; RESP 16–20; TEMP 97.2–98; O2SAT 95–100
[2024-03-08 07:26] LABS: Anion Gap 10 (5-15); Carbon Dioxide 23 mmol/L (20-31); Chloride 101 mmol/L (98-107); Potassium 4.7 mmol/L (3.5-5.1); Sodium 134 mmol/L (136-145)
[2024-03-08 07:28] LABS: Calcium 9.5 mg/dL (8.7-10.4)
[2024-03-08 07:32] LABS: Glucose 82 mg/dL (74-106)
[2024-03-08 07:33] LABS: BUN/Creatinine Ratio 9.8 (10.0-20.0)
[2024-03-08 07:34] LABS: Basophils # (auto) 0.2 10 ^3/uL (0-0.2); Basophils % (auto) 0.9 % (0.0-2.0); Eosinophils # (auto) 0.3 10 ^3/uL (0-0.8); Eosinophils % (auto) 2.1 % (0.0-7.0); Hematocrit 34.4 % (41.0-53.0); Hemoglobin 11.1 g/dL (13.5-17.5); Lymphocytes # (auto) 3.5 10 ^3/uL (0.4-5.4); Lymphocytes % (auto) 21.8 % (10.0-50.0); Mean Corpuscular Hemoglobin 28.6 pg (28.0-32.0); Mean Corpuscular Hgb Conc. 32.2 g/dL (32.0-36.0); Mean Corpuscular Volume 88.9 fL (80.0-100.0); Monocytes # (auto) 1.8 10 ^3/uL (0-1.3); Monocytes % (auto) 11.5 % (0.0-12.0); Neutrophils # (auto) 10.2 10 ^3/uL (1.6-8.6); Neutrophils % (auto) 63.7 % (37.0-80.0); Nucleated Red Blood Cells % 0.2 %; Platelet Count (auto) 556 10^3/uL (140-450); Red Blood Cells 3.86 10^6/uL (4.5-5.90)
[2024-03-08 07:37] LABS: INR 1.26 (0.9-1.15); Prothrombin Time 13.1 sec (9.3-11.8)
[2024-03-08 07:38] LABS: Blood Urea Nitrogen 61 mg/dL (9-23)
--- NOTE | 2024-03-08 09:14 | DVHPN2 ---
Progress Note Date Seen: Mar 08, 2024 Medical Necessity Reason Pt with a Central, PICC or Fol: Yes The following are medically ne: Central Line, Barfield Catheter Reason for barfield catheter: Bladder Retention/Obstruc, Strict I&O Subjective Patient reports: No new complaints Other Systems: Patient seen and examined by myself today in follow-up Patient examined hemodialysis, blood pressure stable Objective vital signs Vital Sign Date Time Temp Pulse Resp B/P (MAP) Pulse Ox O2 Delivery O2 Flow Rate FiO2 03/08/24 06:56 87 18 100 03/08/24 06:50 Room Air 0.0 03/08/24 06:50 21 03/08/24 05:43 112/76 03/08/24 05:00 97.8 97.8 Total Intake and Output 03/07/24 03/07/24 03/08/24 15:00 23:00 07:00 Intake Total 600 ml 558.75 ml Output Total 600 ml 900 ml Balance 0 ml -341.25 ml medications Current Medications Medications Dose Ordered Sig/Kishan Route Start Time Stop Time Status Last Admin Dose Admin Ondansetron HCl 4 mg Q4HP PRN IV 02/19/24 19:00 Enoxaparin Sodium 40 mg BID SC 02/19/24 22:00 UNV Nitroglycerin 0.4 mg Q5MINP PRN SL 02/19/24 19:00 Cefepime HCl 50 ml @ 12.5 mls/hr DAILY IV 02/20/24 10:00 UNV Phenylephrine HCl 250 ml @ 30 mls/hr Q8H20M IV 02/19/24 19:45 UNV Dextrose 50 ml UD PRN IV 02/20/24 00:15 Cancel Calcium Gluconate/ Sodium Chloride 50 ml @ 100 mls/hr Q30M IV 02/20/24 08:15 02/20/24 09:14 Cancel Pantoprazole Sodium 40 mg DAILY IV 02/20/24 10:00 03/07/24 14:35 40 MG Amiodarone HCl 200 mg Q12HR PO 02/21/24 22:00 03/07/24 21:39 200 MG Diagnostic Test (Pha) 1 strip Q6HR 02/25/24 18:00 03/08/24 06:37 1 STRIP Insulin Human Regular Q6HR SC 02/25/24 18:00 03/07/24 23:26 2 UNITS Dextrose 50 ml UD PRN IV 02/25/24 15:00 Sodium Chloride 10 ml QSHIFT@10,22 IV 02/29/24 22:00 03/07/24 23:27 10 ML Furosemide 40 mg BIDD IV 03/03/24 18:00 03/08/24 05:43 40 MG Levalbuterol HCl 0.625 mg Q6HWA [facility] 03/04/24 00:00 03/08/24 06:50 0.625 MG Acetylcysteine 200 mg Q6HWA [facility] 03/04/24 00:00 03/08/24 06:50 200 MG Trimethoprim/ Sulfamethoxazole 0 ml @ 0 mls/hr PER PHARMACY IV 03/06/24 09:15 Trimethoprim/ Sulfamethoxazole 8.75 ml/Dextrose 258.75 ml @ 173.333 mls/hr Q12H IV 03/06/24 10:00 03/07/24 21:51 173.333 MLS/HR Levofloxacin/ Dextrose 100 ml @ 100 mls/hr Q48H IV 03/08/24 12:00 Apixaban 2.5 mg BID PO 03/07/24 22:00 03/07/24 21:38 2.5 MG Examination: LUNGS:Normal, CVS:Normal, MSK:Normal laboratory and microbiology Laboratory Tests 03/08/24 06:12 Test 03/08/24 06:12 Range/Units Serum Glucose 82 74-106 mg/dL Microbiology Date/Time Source Procedure Growth Status 03/04/24 17:46 Blood Blood Culture - Preliminary NO GROWTH AFTER 72 HOURS OF INCUBATION. Resulted 03/03/24 21:08 Sputum Gram Stain - Final Complete 03/03/24 21:08 Respiratory Culture - Final Stenotrophomonas maltophilia Complete 02/26/24 14:18 Urine - Catheterized Urine Culture - Final Complete 02/19/24 22:00 Nose MRSA Screen - Final Complete Problem List/Assessment/Plan Problem List/Assessment/Plan Acute kidney injury superimposed Chronic Kidney Disease 4/ 5 secondary hemodynamic mediated, requiring intermittent hemodialysis Acute respiratory failure, extubated Septic shock Obstructive uropathy Bilateral nephrolithiasis Right nephrostomy tube Congestive heart failure, ejection fraction 15% Pneumonia Diabetes mellitus type 2 Hyperglycemia Iron-deficiency anemia Hyperphosphatemia RLL atelectasis due to mucus plug s/p bronchoscopy 02/26 Recommendations Continue with UF 2 L as tolerated Fluid restriction Renal diet Renvela 800 mg p.o. t.i.d. with meals IV antibiotics per ID We will continue to follow Plan discussed with: Patient My Orders My Orders Orders - NICOLA CANALES MD Procedure Category Date Status Time Chest Xray 1 View XY 03/07/24 Resulted 15:46 Dietary Evaluation Review Comments: 1) If GI is accessible consider Glucerna 1.2 @ 75 ml/hr goal rate as tolerated 2) If pt remains NPO >7 days consider TPN to meet at least 75% of estimated needs 3) Advance pt diet when medically feasible to a Renal Specific K2,Low Phos,SAM,2gmNa,80gPro diet (if not receiving dialysis) 4) Continue current plan of care Expected Outcomes/Goals: 1) Pt to receive adequate nutrition support within 7 days of NPO status 2) Pt diet to advance 3) Pt labs to improve 4) F/U in 2-3 days NICOLA CANALES MD Mar 08, 2024 09:14
[2024-03-08] MEDS ORDERED: SODIUM CHL 0.9% 1000 ML BAG XX ONE (09:15)
--- NOTE | 2024-03-08 10:55 | DVHPN2 ---
Progress Note Date Seen: Mar 08, 2024 Medical Necessity Reason Pt with a Central, PICC or Fol: Yes The following are medically ne: Central Line, Barfield Catheter Reason for barfield catheter: Bladder Retention/Obstruc, Strict I&O Subjective Patient reports: No new complaints Other Systems: Patient seen and examined by myself today in follow-up Patient examined hemodialysis, blood pressure stable Objective vital signs Vital Sign Date Time Temp Pulse Resp B/P (MAP) Pulse Ox O2 Delivery O2 Flow Rate FiO2 03/08/24 10:25 97 Room Air 0.0 03/08/24 10:25 21 03/08/24 09:28 97.4 98 18 109/63 (78) 97.4 Total Intake and Output 03/07/24 03/07/24 03/08/24 15:00 23:00 07:00 Intake Total 600 ml 558.75 ml Output Total 600 ml 900 ml Balance 0 ml -341.25 ml medications Current Medications Medications Dose Ordered Sig/Kishan Route Start Time Stop Time Status Last Admin Dose Admin Ondansetron HCl 4 mg Q4HP PRN IV 02/19/24 19:00 Enoxaparin Sodium 40 mg BID SC 02/19/24 22:00 UNV Nitroglycerin 0.4 mg Q5MINP PRN SL 02/19/24 19:00 Cefepime HCl 50 ml @ 12.5 mls/hr DAILY IV 02/20/24 10:00 UNV Phenylephrine HCl 250 ml @ 30 mls/hr Q8H20M IV 02/19/24 19:45 UNV Dextrose 50 ml UD PRN IV 02/20/24 00:15 Cancel Calcium Gluconate/ Sodium Chloride 50 ml @ 100 mls/hr Q30M IV 02/20/24 08:15 02/20/24 09:14 Cancel Pantoprazole Sodium 40 mg DAILY IV 02/20/24 10:00 03/07/24 14:35 40 MG Amiodarone HCl 200 mg Q12HR PO 02/21/24 22:00 03/07/24 21:39 200 MG Diagnostic Test (Pha) 1 strip Q6HR 02/25/24 18:00 03/08/24 06:37 1 STRIP Insulin Human Regular Q6HR SC 02/25/24 18:00 03/07/24 23:26 2 UNITS Dextrose 50 ml UD PRN IV 02/25/24 15:00 Sodium Chloride 10 ml QSHIFT@10,22 IV 02/29/24 22:00 03/07/24 23:27 10 ML Furosemide 40 mg BIDD IV 03/03/24 18:00 03/08/24 05:43 40 MG Levalbuterol HCl 0.625 mg Q6HWA NEB 03/04/24 00:00 03/08/24 06:50 0.625 MG Acetylcysteine 200 mg Q6HWA NEB 03/04/24 00:00 03/08/24 06:50 200 MG Trimethoprim/ Sulfamethoxazole 0 ml @ 0 mls/hr PER PHARMACY IV 03/06/24 09:15 Trimethoprim/ Sulfamethoxazole 8.75 ml/Dextrose 258.75 ml @ 173.333 mls/hr Q12H IV 03/06/24 10:00 03/07/24 21:51 173.333 MLS/HR Levofloxacin/ Dextrose 100 ml @ 100 mls/hr Q48H IV 03/08/24 12:00 Apixaban 2.5 mg BID PO 03/07/24 22:00 03/07/24 21:38 2.5 MG Sevelamer HCl 800 mg TIDWM PO 03/08/24 12:00 Examination: LUNGS:Normal, CVS:Normal, MSK:Normal laboratory and microbiology Laboratory Tests 03/08/24 06:12 Test 03/08/24 06:12 Range/Units Serum Glucose 82 74-106 mg/dL Microbiology Date/Time Source Procedure Growth Status 03/04/24 17:46 Blood Blood Culture - Preliminary NO GROWTH AFTER 72 HOURS OF INCUBATION. Resulted 03/03/24 21:08 Sputum Gram Stain - Final Complete 03/03/24 21:08 Respiratory Culture - Final Stenotrophomonas maltophilia Complete 02/26/24 14:18 Urine - Catheterized Urine Culture - Final Complete 02/19/24 22:00 Nose MRSA Screen - Final Complete Problem List/Assessment/Plan Problem List/Assessment/Plan Acute kidney injury superimposed Chronic Kidney Disease 4/ 5 secondary hemodynamic mediated, requiring intermittent hemodialysis Acute respiratory failure, extubated Septic shock Obstructive uropathy Bilateral nephrolithiasis Right nephrostomy tube Congestive heart failure, ejection fraction 15% Pneumonia Diabetes mellitus type 2 Hyperglycemia Iron-deficiency anemia Hyperphosphatemia RLL atelectasis due to mucus plug s/p bronchoscopy 02/26 Recommendations Continue with UF 2 L as tolerated Fluid restriction Renal diet Renvela 800 mg p.o. t.i.d. with meals IV antibiotics per ID We will continue to follow Plan discussed with: Patient My Orders My Orders Orders - NICOLA CANALES MD Procedure Category Date Status Time Chest Xray 1 View XY 03/07/24 Resulted 15:46 Hemodialysis Orders ORDERS 03/08/24 Transmitted 09:09 Dialysis Nursing COURTNEY 03/08/24 In Process Message 09:09 Document Fluid Input COURTNEY 03/08/24 In Process And Outpu 09:09 Sevelamer (Renagel) PHA 03/08/24 In Process 12:00 Renal Specific DIET 03/08/24 Transmitted Diet(Renal) Breakfast Dietary Evaluation Review Comments: 1) If GI is accessible consider Glucerna 1.2 @ 75 ml/hr goal rate as tolerated 2) If pt remains NPO >7 days consider TPN to meet at least 75% of estimated needs 3) Advance pt diet when medically feasible to a Renal Specific K2,Low Phos,SAM,2gmNa,80gPro diet (if not receiving dialysis) 4) Continue current plan of care Expected Outcomes/Goals: 1) Pt to receive adequate nutrition support within 7 days of NPO status 2) Pt diet to advance 3) Pt labs to improve 4) F/U in 2-3 days NICOLA CANALES MD Mar 08, 2024 10:55
[2024-03-08] MEDS: HYDROcodone-ACET 5/325MG TAB PO PRN (12:49)
[2024-03-08] MEDS: SEVELAMER 800 MG TAB PO SCH (12:50)
[2024-03-08] MEDS: levoFLOXacin 500MG 100 ML IV SCH (12:51)
--- NOTE | 2024-03-08 12:56 | DVHPN2 ---
Subjective 62-year-old male with heart failure with reduced ejection fraction, ESRD on hemodialysis, diabetes, AFib on Eliquis, hypertension, pulmonary hypertension admitted for shortness of breath. Patient also had cardiac arrest, ROSC 11 minutes Seen patient today during rounds Patient receiving dialysis, awake, alert, no complaints, no deficits Changes from previous H/P or p: No Changes Eyes: No Pain, No Vision change, No Conjunctivae inflammation, No Eyelid inflammation, No Other, No Redness ENT: No Ear pain, No Ear discharge, No Nose pain, No Nose discharge, No Nose congestion, No Mouth pain, No Mouth swelling, No Throat pain, No Throat swelling, No Other Cardiovascular: No Chest Pain, No Palpitations, No Orthopnea, No Paroxysmal Noc. Dyspnea, No Edema, No Lt Headedness, No Other Respiratory: No Cough, No Dry; Shortness of breath, SOB with excertion, W heezing; No Hemoptysis, No Pleuritic Pain, No Sputum, No Other Gastrointestinal: No Nausea, No Vomiting, No Abdominal Pain, No Diarrhea, No Constipation, No Melena, No Hematochezia, No Other Genitourinary: No Dysuria, No Frequency, No Incontinence, No Hematuria, No Retention, No Other Musculoskeletal: No other, No neck pain, No shoulder pain, No arm pain, No back pain, No hand pain, No leg pain, No foot pain Skin: No Rash, No Lesions, No Jaundice, No Bruising, No Other Objective Vitals Vital Signs Date Time Temp Pulse Resp B/P (MAP) Pulse Ox O2 Delivery O2 Flow Rate FiO2 03/08/24 12:37 98 18 100 03/08/24 12:31 Room Air 0.0 03/08/24 12:31 21 03/08/24 09:28 97.4 109/63 (78) 97.4 Intake/Output Intake and Output 03/08/24 06:59 Intake Total 1158.75 ml Output Total 1500 ml Balance -341.25 ml Intake Oral 900 ml IV Total 258.75 ml Output Urine Total 700 ml Drainage Total 250 ml Other 550 ml Exam Alert, oriented x3 PERRLA Clear breath sounds bilaterally S1-S2 regular rate, no murmur Abdomen soft nontender, no hepatomegaly Equal strength bilaterally on upper and lower extremities trace extremity edema Medications Current Medications Medications Dose Ordered Sig/Kishan Route Start Time Stop Time Status Last Admin Dose Admin Ondansetron HCl 4 mg Q4HP PRN IV 02/19/24 19:00 Enoxaparin Sodium 40 mg BID SC 02/19/24 22:00 UNV Nitroglycerin 0.4 mg Q5MINP PRN SL 02/19/24 19:00 Cefepime HCl 50 ml @ 12.5 mls/hr DAILY IV 02/20/24 10:00 UNV Phenylephrine HCl 250 ml @ 30 mls/hr Q8H20M IV 02/19/24 19:45 UNV Dextrose 50 ml UD PRN IV 02/20/24 00:15 Cancel Calcium Gluconate/ Sodium Chloride 50 ml @ 100 mls/hr Q30M IV 02/20/24 08:15 02/20/24 09:14 Cancel Pantoprazole Sodium 40 mg DAILY IV 02/20/24 10:00 03/08/24 12:51 40 MG Amiodarone HCl 200 mg Q12HR PO 02/21/24 22:00 03/07/24 21:39 200 MG Diagnostic Test (Pha) 1 strip Q6HR 02/25/24 18:00 03/08/24 11:55 1 STRIP Insulin Human Regular Q6HR SC 02/25/24 18:00 03/07/24 23:26 2 UNITS Dextrose 50 ml UD PRN IV 02/25/24 15:00 Sodium Chloride 10 ml QSHIFT@10,22 IV 02/29/24 22:00 03/08/24 12:50 10 ML Furosemide 40 mg BIDD IV 03/03/24 18:00 03/08/24 05:43 40 MG Levalbuterol HCl 0.625 mg Q6HWA NEB 03/04/24 00:00 03/08/24 12:31 0.625 MG Acetylcysteine 200 mg Q6HWA NEB 03/04/24 00:00 03/08/24 12:31 200 MG Trimethoprim/ Sulfamethoxazole 0 ml @ 0 mls/hr PER PHARMACY IV 03/06/24 09:15 Trimethoprim/ Sulfamethoxazole 8.75 ml/Dextrose 258.75 ml @ 173.333 mls/hr Q12H IV 03/06/24 10:00 03/07/24 21:51 173.333 MLS/HR Levofloxacin/ Dextrose 100 ml @ 100 mls/hr Q48H IV 03/08/24 12:00 03/08/24 12:51 100 MLS/HR Apixaban 2.5 mg BID PO 03/07/24 22:00 03/07/24 21:38 2.5 MG Sevelamer HCl 800 mg TIDWM PO 03/08/24 12:00 03/08/24 12:50 800 MG Acetaminophen/ Hydrocodone Bitart 1 tab Q6HPRN PRN PO 03/08/24 12:30 03/08/24 12:49 1 TAB Laboratory Results Laboratory Tests 03/08/24 06:12 Chemistry Test 03/08/24 06:12 Calcium Level 9.5 mg/dL (8.7-10.4) Coagulation Test 03/08/24 06:12 Prothrombin Time 13.1 sec (9.3-11.8) H Prothrombin Time INR 1.26 (0.9-1.15) H Activated Partial Thromboplast Time 37.0 SEC (24.5-34.5) H Urinalysis Test 02/20/24 18:02 Urine Color Colorless (Yellow) Urine Clarity Clear (Clear) Urine pH 5.5 (5.0-9.0) Urine Specific [place] 1.007 (1.001-1.035) Urine Protein 1+ (Negative) H Urine Ketones Negative (Negative) Urine Blood 2+ /uL (Negative) H Urine Nitrite Negative (Negative) Urine Bilirubin Negative (Negative) Urine Urobilinogen Normal mg/dL (Negative) Urine Leukocyte Esterase 2+ /uL (Negative) Urine RBC 14 /hpf (0 - 3) Urine WBC 7 /hpf (0 - 3) Urine Squamous Epithelial Cells None seen /hpf (<5) Urine Bacteria Few /hpf (None Seen) H Urine Creatinine 33.02 mg/dL (30.0-125.0) Urine Protein/Creatinine Ratio 1.94 Urine Sodium 30 mmol/L (40-220) L Urine Glucose 1+ mg/dL (Normal) H Urine Total Protein 63.9 mg/dL (1-14) H Microbiology Microbiology Date/Time Source Procedure Growth Status 03/04/24 17:46 Blood Blood Culture - Preliminary NO GROWTH AFTER 72 HOURS OF INCUBATION. Resulted 03/03/24 21:08 Sputum Gram Stain - Final Complete 03/03/24 21:08 Respiratory Culture - Final Stenotrophomonas maltophilia Complete 02/26/24 14:18 Urine - Catheterized Urine Culture - Final Complete 02/19/24 22:00 Nose MRSA Screen - Final Complete Labs and/or images reviewed: Labs reviewed by me, Image(s) reviewed by me Assessment/Plan Assessment/Plan Status post cardiac arrest 11 minutes downtime Pneumonia due to stenotrophomonas Septic shock resolved Troponin elevation secondary to 2 NV Acute on chronic heart failure with him fraction Lactic acidosis resolved Paroxysmal AFib on Eliquis ESRD on dialysis Status post nephrostomy Transit continuation Diabetes mellitus Continue antibiotic, pain control Nephro consult appreciated Continue with regular dialysis Moderate sliding scale PT consult Advance diet as tolerated DVT prophylaxis on Eliquis Plan discussed with: Patient Date of Service: Mar 08, 2024 Billing Provider: GLADYS HARPER MD Common Visit Codes: [id number] INP/OBS CARE(HIGH) GLADYS HARPER MD Mar 08, 2024 12:56
[2024-03-08] MEDS ORDERED: ACETAMINOPHEN 325 MG TAB PO PRN (15:30)
[2024-03-09] VITALS (14 sets, daily range): BP systolic 101–116; BP diastolic 58–78; PULSE 90–102; RESP 16–20; TEMP 97.7–98.2; O2SAT 95–100
[2024-03-09] MEDS: SULFAMETH TRIMETH IV SCH (03:20)
[2024-03-09] MEDS: D5W 5% IV SCH (03:20)
--- NOTE | 2024-03-09 11:08 | DVHPN2 ---
Progress Note Date Seen: Mar 09, 2024 Medical Necessity Reason Pt with a Central, PICC or Fol: Yes The following are medically ne: Central Line, Barfield Catheter Reason for barfield catheter: Bladder Retention/Obstruc, Strict I&O Subjective Patient reports: No new complaints Other Systems: Patient seen and examined by myself today in follow-up Objective vital signs Vital Sign Date Time Temp Pulse Resp B/P (MAP) Pulse Ox O2 Delivery O2 Flow Rate FiO2 03/09/24 10:00 96 Room Air* 0 21 03/09/24 07:07 94 18 03/09/24 05:19 116/78 03/09/24 05:00 98.1 98.1 Total Intake and Output 03/08/24 03/08/24 03/09/24 15:00 23:00 07:00 Intake Total 0 ml 200 ml Output Total 350 ml 250 ml 470 ml Balance -350 ml -250 ml -270 ml medications Current Medications Medications Dose Ordered Sig/Kishan Route Start Time Stop Time Status Last Admin Dose Admin Ondansetron HCl 4 mg Q4HP PRN IV 02/19/24 19:00 Enoxaparin Sodium 40 mg BID SC 02/19/24 22:00 UNV Nitroglycerin 0.4 mg Q5MINP PRN SL 02/19/24 19:00 Cefepime HCl 50 ml @ 12.5 mls/hr DAILY IV 02/20/24 10:00 UNV Phenylephrine HCl 250 ml @ 30 mls/hr Q8H20M IV 02/19/24 19:45 UNV Dextrose 50 ml UD PRN IV 02/20/24 00:15 Cancel Calcium Gluconate/ Sodium Chloride 50 ml @ 100 mls/hr Q30M IV 02/20/24 08:15 02/20/24 09:14 Cancel Pantoprazole Sodium 40 mg DAILY IV 02/20/24 10:00 03/09/24 09:17 40 MG Amiodarone HCl 200 mg Q12HR PO 02/21/24 22:00 03/09/24 09:17 200 MG Diagnostic Test (Pha) 1 strip Q6HR 02/25/24 18:00 03/09/24 05:22 1 STRIP Insulin Human Regular Q6HR SC 02/25/24 18:00 03/07/24 23:26 2 UNITS Dextrose 50 ml UD PRN IV 02/25/24 15:00 Sodium Chloride 10 ml QSHIFT@10,22 IV 02/29/24 22:00 03/09/24 09:18 10 ML Furosemide 40 mg BIDD IV 03/03/24 18:00 03/09/24 05:19 40 MG Levalbuterol HCl 0.625 mg Q6HWA [facility] 03/04/24 00:00 03/09/24 07:01 0.625 MG Acetylcysteine 200 mg Q6HWA [facility] 03/04/24 00:00 03/09/24 07:01 200 MG Trimethoprim/ Sulfamethoxazole 0 ml @ 0 mls/hr PER PHARMACY IV 03/06/24 09:15 Levofloxacin/ Dextrose 100 ml @ 100 mls/hr Q48H IV 03/08/24 12:00 03/08/24 12:51 100 MLS/HR Apixaban 2.5 mg BID PO 03/07/24 22:00 03/09/24 09:18 2.5 MG Sevelamer HCl 800 mg TIDWM PO 03/08/24 12:00 03/09/24 09:18 800 MG Trimethoprim/ Sulfamethoxazole 8.75 ml/Dextrose 258.75 ml @ 173.333 mls/hr Q12H IV 03/09/24 04:00 03/09/24 03:20 173.333 MLS/HR Examination: LUNGS:Normal, CVS:Normal, MSK:Normal laboratory and microbiology Laboratory Tests 03/08/24 06:12 Test 03/08/24 06:12 Range/Units Serum Glucose 82 74-106 mg/dL Microbiology Date/Time Source Procedure Growth Status 03/04/24 17:46 Blood Blood Culture - Preliminary NO GROWTH AFTER 72 HOURS OF INCUBATION. Resulted 03/03/24 21:08 Sputum Gram Stain - Final Complete 03/03/24 21:08 Respiratory Culture - Final Stenotrophomonas maltophilia Complete 02/26/24 14:18 Urine - Catheterized Urine Culture - Final Complete 02/19/24 22:00 Nose MRSA Screen - Final Complete Problem List/Assessment/Plan Problem List/Assessment/Plan Acute kidney injury superimposed Chronic Kidney Disease 4/ 5 secondary hemodynamic mediated, requiring intermittent hemodialysis Acute respiratory failure, extubated Septic shock Obstructive uropathy Bilateral nephrolithiasis Status post bilateral nephrostomy tube removal Congestive heart failure, ejection fraction 15% Pneumonia Diabetes mellitus type 2 Hyperglycemia Iron-deficiency anemia Hyperphosphatemia RLL atelectasis due to mucus plug s/p bronchoscopy 02/26 Recommendations Next hemodialysis 03/11 Fluid restriction Renal diet Renvela 800 mg p.o. t.i.d. with meals IV antibiotics per ID metrology manager for outpatient hemodialysis chair time at [facility] dialysis Remove right femoral Sravan catheter Plan discussed with: Patient My Orders My Orders Orders - NICOLA CANALES MD Procedure Category Date Status Time Discontinue Picc ORDERS 03/08/24 Transmitted 11:23 Dietary Evaluation Review Comments: 1) If GI is accessible consider Glucerna 1.2 @ 75 ml/hr goal rate as tolerated 2) If pt remains NPO >7 days consider TPN to meet at least 75% of estimated needs 3) Advance pt diet when medically feasible to a Renal Specific K2,Low Phos,SAM,2gmNa,80gPro diet (if not receiving dialysis) 4) Continue current plan of care Expected Outcomes/Goals: 1) Pt to receive adequate nutrition support within 7 days of NPO status 2) Pt diet to advance 3) Pt labs to improve 4) F/U in 2-3 days NICOLA CANALES MD Mar 09, 2024 11:08
[2024-03-09] MEDS: FUROSEMIDE 20 MG TAB PO ONE (18:10)
--- NOTE | 2024-03-09 18:26 | DVHPN2 ---
Subjective 62-year-old male with heart failure with reduced ejection fraction, ESRD on hemodialysis, diabetes, AFib on Eliquis, hypertension, pulmonary hypertension admitted for shortness of breath. Patient also had cardiac arrest, ROSC 11 minutes Seen patient today during rounds seen during PT today. will remove TLC, patient with chair time on sunday. no complaints Reviewed: H&P Changes from previous H/P or p: No Changes Eyes: No Pain, No Vision change, No Conjunctivae inflammation, No Eyelid inflammation, No Other, No Redness ENT: No Ear pain, No Ear discharge, No Nose pain, No Nose discharge, No Nose congestion, No Mouth pain, No Mouth swelling, No Throat pain, No Throat swelling, No Other Cardiovascular: No Chest Pain, No Palpitations, No Orthopnea, No Paroxysmal Noc. Dyspnea, No Edema, No Lt Headedness, No Other Respiratory: No Cough, No Dry; Shortness of breath, SOB with excertion, W heezing; No Hemoptysis, No Pleuritic Pain, No Sputum, No Other Gastrointestinal: No Nausea, No Vomiting, No Abdominal Pain, No Diarrhea, No Constipation, No Melena, No Hematochezia, No Other Genitourinary: No Dysuria, No Frequency, No Incontinence, No Hematuria, No Retention, No Other Musculoskeletal: No other, No neck pain, No shoulder pain, No arm pain, No back pain, No hand pain, No leg pain, No foot pain Skin: No Rash, No Lesions, No Jaundice, No Bruising, No Other Objective Vitals Vital Signs Date Time Temp Pulse Resp B/P (MAP) Pulse Ox O2 Delivery O2 Flow Rate FiO2 03/09/24 18:10 113/66 03/09/24 17:00 98.2 97 18 99 98.2 03/09/24 11:19 Room Air 0.0 03/09/24 11:19 21 Intake/Output Intake and Output 03/09/24 07:00 Intake Total 200 ml Output Total 1070 ml Balance -870 ml Intake Oral 200 ml Output Urine Total 670 ml Drainage Total 400 ml Exam Alert, oriented x3 PERRLA Clear breath sounds bilaterally S1-S2 regular rate, no murmur Abdomen soft nontender, no hepatomegaly Equal strength bilaterally on upper and lower extremities trace extremity edema Medications Current Medications Medications Dose Ordered Sig/Kishan Route Start Time Stop Time Status Last Admin Dose Admin Ondansetron HCl 4 mg Q4HP PRN IV 02/19/24 19:00 Enoxaparin Sodium 40 mg BID SC 02/19/24 22:00 UNV Nitroglycerin 0.4 mg Q5MINP PRN SL 02/19/24 19:00 Cefepime HCl 50 ml @ 12.5 mls/hr DAILY IV 02/20/24 10:00 UNV Phenylephrine HCl 250 ml @ 30 mls/hr Q8H20M IV 02/19/24 19:45 UNV Dextrose 50 ml UD PRN IV 02/20/24 00:15 Cancel Calcium Gluconate/ Sodium Chloride 50 ml @ 100 mls/hr Q30M IV 02/20/24 08:15 02/20/24 09:14 Cancel Pantoprazole Sodium 40 mg DAILY IV 02/20/24 10:00 03/09/24 09:17 40 MG Amiodarone HCl 200 mg Q12HR PO 02/21/24 22:00 03/09/24 09:17 200 MG Diagnostic Test (Pha) 1 strip Q6HR 02/25/24 18:00 03/09/24 18:14 1 STRIP Insulin Human Regular Q6HR SC 02/25/24 18:00 03/07/24 23:26 2 UNITS Dextrose 50 ml UD PRN IV 02/25/24 15:00 Sodium Chloride 10 ml QSHIFT@10,22 IV 02/29/24 22:00 03/09/24 09:18 10 ML Levalbuterol HCl 0.625 mg Q6HWA [facility] 03/04/24 00:00 03/09/24 11:19 0.625 MG Acetylcysteine 200 mg Q6HWA [facility] 03/04/24 00:00 03/09/24 11:19 200 MG Trimethoprim/ Sulfamethoxazole 0 ml @ 0 mls/hr PER PHARMACY IV 03/06/24 09:15 Levofloxacin/ Dextrose 100 ml @ 100 mls/hr Q48H IV 03/08/24 12:00 03/08/24 12:51 100 MLS/HR Apixaban 2.5 mg BID PO 03/07/24 22:00 03/09/24 09:18 2.5 MG Sevelamer HCl 800 mg TIDWM PO 03/08/24 12:00 03/09/24 18:10 800 MG Trimethoprim/ Sulfamethoxazole 8.75 ml/Dextrose 258.75 ml @ 173.333 mls/hr Q12H IV 03/09/24 04:00 03/09/24 03:20 173.333 MLS/HR Furosemide 40 mg BIDD PO 03/10/24 06:00 Laboratory Results Laboratory Tests 03/08/24 06:12 Urinalysis Test 02/20/24 18:02 Urine Color Colorless (Yellow) Urine Clarity Clear (Clear) Urine pH 5.5 (5.0-9.0) Urine Specific [place] 1.007 (1.001-1.035) Urine Protein 1+ (Negative) H Urine Ketones Negative (Negative) Urine Blood 2+ /uL (Negative) H Urine Nitrite Negative (Negative) Urine Bilirubin Negative (Negative) Urine Urobilinogen Normal mg/dL (Negative) Urine Leukocyte Esterase 2+ /uL (Negative) Urine RBC 14 /hpf (0 - 3) Urine WBC 7 /hpf (0 - 3) Urine Squamous Epithelial Cells None seen /hpf (<5) Urine Bacteria Few /hpf (None Seen) H Urine Creatinine 33.02 mg/dL (30.0-125.0) Urine Protein/Creatinine Ratio 1.94 Urine Sodium 30 mmol/L (40-220) L Urine Glucose 1+ mg/dL (Normal) H Urine Total Protein 63.9 mg/dL (1-14) H Microbiology Microbiology Date/Time Source Procedure Growth Status 03/04/24 17:46 Blood Blood Culture - Final NO GROWTH AFTER 5 DAYS OF INCUBATION. Complete 03/03/24 21:08 Sputum Gram Stain - Final Complete 03/03/24 21:08 Respiratory Culture - Final Stenotrophomonas maltophilia Complete 02/26/24 14:18 Urine - Catheterized Urine Culture - Final Complete 02/19/24 22:00 Nose MRSA Screen - Final Complete Assessment/Plan Assessment/Plan Status post cardiac arrest 11 minutes downtime Pneumonia due to stenotrophomonas Septic shock resolved Troponin elevation secondary to 2 AR Acute on chronic heart failure with him fraction Lactic acidosis resolved Paroxysmal AFib on Eliquis ESRD on dialysis Status post nephrostomy Transit continuation Diabetes mellitus Continue antibiotic, pain control Nephro consult appreciated Continue with regular dialysis Moderate sliding scale PT consult remove cath per SS chair time ready Advance diet as tolerated DVT prophylaxis on Eliquis Plan discussed with: Patient My Orders Orders - GLADYS HARPER MD Procedure Category Date Status Time Discontinue Mendez COURTNEY 03/09/24 In Process Catheter 15:17 Discontinue Picc ORDERS 03/09/24 Transmitted 15:17 Furosemide Tablet PHA 03/10/24 In Process (Lasix Tablet) 06:00 Date of Service: Mar 09, 2024 Billing Provider: GLADYS HARPER MD Common Visit Codes: [id number] INP/OBS CARE(MOD) GLADYS HARPER MD Mar 09, 2024 18:26
[2024-03-09] MEDS: SULFAMETHOX W/TRIMETH(800/160MG) DS TAB PO SCH (20:34)
--- NOTE | 2024-03-09 22:38 | DVHPN2 ---
Progress Note - Dictate Date Seen: Mar 09, 2024 Medical Necessity Reason Pt with a Central, PICC or Fol: Yes The following are medically ne: Central Line, Barfield Catheter Reason for barfield catheter: Bladder Retention/Obstruc, Strict I&O Subjective Mr. Gilmore is a 40 years old left-handed gentleman with a history of hypertension, diabetes, congestive heart failure, chronic kidney disease, the patient was brought to the [facility] on 02/19/2024 with a chief company of shortness breath, his CT brain scan showed evidence suggestive a stroke, I have seen and examined the patient, I discussed with his nurse, he is awake, oriented x3. No new complaints Blood culture, 02/19/2024: UDS, 02/19/2024: Negative ABG, 02/19/2024: metabolic and respiratory acidosis, 02/20/2024: Metabolic acidosis WBC/HB/PLT/MCV, 02/20/24: 25.1/10.2/418/90.8 PT/INR/PTT, 02/22/2024: 11.9/1.13/55.2, 02/24/2024: 11.7/1.1/47 BUN/CR, 02/19/2024: 74/5.35 GFR, 02/19/2024: 12 HGB A1c, 02/10/2024: 76 Glucose, 02/20/2024: 469, 468, 475, 437 Lactic acid, 02/19/2024: 4.2, three, two TBI/AST/ALT/AP, 02/20/2024: 0.5/46/59/163 Troponin one high sensitivity, 02/19/2024: 238, 652, 1010, 06/22/2023: 1886 Beta h hydroxybutyric acid, 02/20/2024: 0.116 TG/HDL/LDL/HDL, 01/2024, 125/193/121/52 EEG : Remarkably abnormal EEG Carotid Doppler, 02/22/2024: 1. No hemodynamically significant stenosis noted in the right carotid system. 2. Nonvisualized left carotid system due to overlying bandage material Chest, 02/19/2024: Bilateral pleural effusions CT head, 02/19/2024: 1. No acute intracranial hemorrhage or mass effect. 2. Mild nonspecific white matter disease which may be related to chronic small-vessel ischemia. 3. Small lower density in the anterior inferior left frontal lobe and in the anterior aspect of the left internal capsule which may be age- indeterminate or subacute to chronic infarcts. 4. Partially imaged dental caries and periapical lucencies in maxillary teeth CT head 02/21/2024: No acute intracranial abnormality. No significant interval change. vital signs Vital Sign Date Time Temp Pulse Resp B/P (MAP) Pulse Ox O2 Delivery O2 Flow Rate FiO2 03/09/24 18:34 98 Room Air 0.0 03/09/24 18:34 21 03/09/24 18:10 113/66 03/09/24 17:00 98.2 97 18 98.2 Total Intake and Output 03/08/24 03/08/24 03/09/24 15:00 23:00 07:00 Intake Total 0 ml 200 ml Output Total 350 ml 250 ml 470 ml Balance -350 ml -250 ml -270 ml medications Current Medications Medications Dose Ordered Sig/Kishan Route Start Time Stop Time Status Last Admin Dose Admin Ondansetron HCl 4 mg Q4HP PRN IV 02/19/24 19:00 Enoxaparin Sodium 40 mg BID SC 02/19/24 22:00 UNV Nitroglycerin 0.4 mg Q5MINP PRN SL 02/19/24 19:00 Cefepime HCl 50 ml @ 12.5 mls/hr DAILY IV 02/20/24 10:00 UNV Phenylephrine HCl 250 ml @ 30 mls/hr Q8H20M IV 02/19/24 19:45 UNV Dextrose 50 ml UD PRN IV 02/20/24 00:15 Cancel Calcium Gluconate/ Sodium Chloride 50 ml @ 100 mls/hr Q30M IV 02/20/24 08:15 02/20/24 09:14 Cancel Pantoprazole Sodium 40 mg DAILY IV 02/20/24 10:00 03/09/24 09:17 40 MG Amiodarone HCl 200 mg Q12HR PO 02/21/24 22:00 03/09/24 20:33 200 MG Diagnostic Test (Pha) 1 strip Q6HR 02/25/24 18:00 03/09/24 18:14 1 STRIP Insulin Human Regular Q6HR SC 02/25/24 18:00 03/07/24 23:26 2 UNITS Dextrose 50 ml UD PRN IV 02/25/24 15:00 Sodium Chloride 10 ml QSHIFT@10,22 IV 02/29/24 22:00 03/09/24 20:36 10 ML Levalbuterol HCl 0.625 mg Q6HWA [facility] 03/04/24 00:00 03/09/24 11:19 0.625 MG Acetylcysteine 200 mg Q6HWA [facility] 03/04/24 00:00 03/09/24 11:19 200 MG Trimethoprim/ Sulfamethoxazole 0 ml @ 0 mls/hr PER PHARMACY IV 03/06/24 09:15 Hold Apixaban 2.5 mg BID PO 03/07/24 22:00 03/09/24 20:34 2.5 MG Sevelamer HCl 800 mg TIDWM PO 03/08/24 12:00 03/09/24 18:10 800 MG Furosemide 40 mg BIDD PO 03/10/24 06:00 Levofloxacin 500 mg Q48H PO 03/10/24 10:00 Trimethoprim/ Sulfamethoxazole 1 tab Q12HR PO 03/09/24 22:00 03/09/24 20:34 1 TAB objective The patient is well-nourished and well-developed with no distress. MENTAL STATUS: Subjective CRANIAL NERVES: Pupils are equal round and reactive to light briskly, normal external eye movement, normal sensation and motor examination in the lateral trigeminal nerve distribution, no facial weakness SENSATION: Fine to the pinprick and light touch MOTOR: Normal tone in the upper and lower extremity. Normal muscle bulk. No fasciculations. He moves extremities minimally REFLEXES: Deep tendon reflexes are symmetrical. No pathological reflexes. CEREBELLAR/COORDINATION: No ataxia GAIT/STATION: deferred. laboratory and microbiology Laboratory Tests 03/08/24 06:12 Test 03/08/24 06:12 Range/Units Serum Glucose 82 74-106 mg/dL Problem List Abnormal CT brain scan, to rule out stroke Coma, resolved Metabolic encephalopathy Hypoxic encephalopathy Toxic encephalopathy Cardiopulmonary arrest Acute respiratory failure Metabolic acidosis Respiratory acidosis Leukocytosis to rule out sepsis Shock liver Chronic kidney failure Hot attack Paroxysmal AFib RVR Anisocoria, uncertain clinical significance Assessment/Plan Monitoring Supportive treatment Follow-up lab Eliquis 2.5 mg b.i.d. GI prophylaxis Hemodialysis More recommendation per clinical course This medical document was created using an electronic medical record system with [employer] dictation system. Although this document has been carefully reviewed, there may still be some phonetic and typographical errors. These areas are purely typographical due to imperfections of the software programs, and do not reflect any compromise in the patient's medical care Prognosis poor Dietary Evaluation Review Comments: 1) If GI is accessible consider Glucerna 1.2 @ 75 ml/hr goal rate as tolerated 2) If pt remains NPO >7 days consider TPN to meet at least 75% of estimated needs 3) Advance pt diet when medically feasible to a Renal Specific K2,Low Phos,SAM,2gmNa,80gPro diet (if not receiving dialysis) 4) Continue current plan of care Expected Outcomes/Goals: 1) Pt to receive adequate nutrition support within 7 days of NPO status 2) Pt diet to advance 3) Pt labs to improve 4) F/U in 2-3 days Plan discussed with: Patient, Other GUSTAVO AVELAR MD Mar 09, 2024 22:38
[2024-03-10] VITALS (15 sets, daily range): BP systolic 100–127; BP diastolic 61–80; PULSE 85–96; RESP 16–20; TEMP 97.6–98.4; O2SAT 95–100
[2024-03-10] MEDS: FUROSEMIDE 40 MG TAB PO SCH (05:21)
[2024-03-10 08:31] LABS: Hepatitis B Surface Antigen Negative (Negative)
[2024-03-10 08:51] LABS: Hepatitis A Ab IgM Negative
[2024-03-10 08:52] LABS: Hepatitis B Core IgM Negative; Hepatitis C Antibody Negative (Negative)
[2024-03-10] MEDS: levoFLOXacin 500 MG TAB PO SCH (09:17)
--- NOTE | 2024-03-10 11:09 | DVHPN2 ---
Progress Note - Dictate Date Seen: Mar 10, 2024 Medical Necessity Reason Pt with a Central, PICC or Fol: Yes The following are medically ne: Central Line, Barfield Catheter Reason for barfield catheter: Bladder Retention/Obstruc, Strict I&O vital signs Vital Sign Date Time Temp Pulse Resp B/P (MAP) Pulse Ox O2 Delivery O2 Flow Rate FiO2 03/10/24 08:53 97.9 92 18 105/80 (88) 96 97.9 03/10/24 07:55 Room Air* 0 21 Total Intake and Output 03/09/24 03/09/24 03/10/24 15:00 23:00 07:00 Intake Total 725 ml 800 ml Output Total 700 ml 600 ml Balance 25 ml 200 ml medications Current Medications Medications Dose Ordered Sig/Kishan Route Start Time Stop Time Status Last Admin Dose Admin Ondansetron HCl 4 mg Q4HP PRN IV 02/19/24 19:00 Enoxaparin Sodium 40 mg BID SC 02/19/24 22:00 UNV Nitroglycerin 0.4 mg Q5MINP PRN SL 02/19/24 19:00 Cefepime HCl 50 ml @ 12.5 mls/hr DAILY IV 02/20/24 10:00 UNV Phenylephrine HCl 250 ml @ 30 mls/hr Q8H20M IV 02/19/24 19:45 UNV Dextrose 50 ml UD PRN IV 02/20/24 00:15 Cancel Calcium Gluconate/ Sodium Chloride 50 ml @ 100 mls/hr Q30M IV 02/20/24 08:15 02/20/24 09:14 Cancel Pantoprazole Sodium 40 mg DAILY IV 02/20/24 10:00 03/09/24 09:17 40 MG Amiodarone HCl 200 mg Q12HR PO 02/21/24 22:00 03/10/24 09:18 200 MG Diagnostic Test (Pha) 1 strip Q6HR 02/25/24 18:00 03/10/24 05:21 1 STRIP Insulin Human Regular Q6HR SC 02/25/24 18:00 03/07/24 23:26 2 UNITS Dextrose 50 ml UD PRN IV 02/25/24 15:00 Sodium Chloride 10 ml QSHIFT@ IV 02/29/24 22:00 03/09/24 20:36 10 ML Levalbuterol HCl 0.625 mg Q6HWA NEB 03/04/24 00:00 03/10/24 06:59 0.625 MG Acetylcysteine 200 mg Q6HWA NEB 03/04/24 00:00 03/10/24 07:00 200 MG Trimethoprim/ Sulfamethoxazole 0 ml @ 0 mls/hr PER PHARMACY IV 03/06/24 09:15 Hold Apixaban 2.5 mg BID PO 03/07/24 22:00 03/10/24 09:18 2.5 MG Sevelamer HCl 800 mg TIDWM PO 03/08/24 12:00 03/10/24 09:27 800 MG Furosemide 40 mg BIDD PO 03/10/24 06:00 03/10/24 05:21 40 MG Levofloxacin 500 mg Q48H PO 03/10/24 10:00 03/10/24 09:17 500 MG Trimethoprim/ Sulfamethoxazole 1 tab Q12HR PO 03/09/24 22:00 03/10/24 09:17 1 TAB objective Middle-aged male Intubated Sedated Not on pressors Abdomen is soft No murmur Mild crackles at the bases Scrotal edema laboratory and microbiology Laboratory Tests 03/08/24 06:12 Test 03/08/24 06:12 Range/Units Serum Glucose 82 74-106 mg/dL Assessment/Plan CKD 5-> ESRD Acute respiratory failure, resolved Septic shock Obstructive uropathy Bilateral nephrolithiasis Right nephrostomy tube Congestive heart failure exacerbation Bilateral pneumonia Diabetes mellitus type 2 Hyperglycemia Anemia of chronic kidney disease Dialysis tomorrow epogen diuretics to achieve negative balance, still has residual function chairtime at [facility] Dietary Evaluation Review Comments: 1) If GI is accessible consider Glucerna 1.2 @ 75 ml/hr goal rate as tolerated 2) If pt remains NPO >7 days consider TPN to meet at least 75% of estimated needs 3) Advance pt diet when medically feasible to a Renal Specific K2,Low Phos,SAM,2gmNa,80gPro diet (if not receiving dialysis) 4) Continue current plan of care Expected Outcomes/Goals: 1) Pt to receive adequate nutrition support within 7 days of NPO status 2) Pt diet to advance 3) Pt labs to improve 4) F/U in 2-3 days Plan discussed with: Patient KALYAN FRAZIER MD Mar 10, 2024 11:09
[2024-03-10 15:46] LABS: Hematocrit 33.9 % (41.0-53.0); Hemoglobin 11.1 g/dL (13.5-17.5)
[2024-03-10 15:48] LABS: Mean Corpuscular Hemoglobin 28.5 pg (28.0-32.0); Mean Corpuscular Hgb Conc. 32.6 g/dL (32.0-36.0); Mean Corpuscular Volume 87.4 fL (80.0-100.0); Platelet Count (auto) 528 10^3/uL (140-450); Red Blood Cells 3.88 10^6/uL (4.5-5.90); Red Cell Distribution Width 16.3 % (11.8-14.3); White Blood Cell 14.7 10^3/uL (4.4-10.8)
[2024-03-10 15:53] LABS: Basophils % (manual) 0 (0.0-2.0); Blast Cells 0; Myelocytes % 0; Promyelocytes % 0; Reactive Lymphocytes 0
[2024-03-10 16:52] LABS: Band Neutrophils % (manual) 2; Eosinophils % (manual) 3 (0-7); Lymphocytes % (manual) 15 (10.0-50.0); Metamyelocytes % 1; Monocytes % (manual) 9 (0-12)
[2024-03-10 16:54] LABS: Large Platelets FEW; Platelet Estimate Increased
--- NOTE | 2024-03-10 17:21 | DVHPNRES ---
Progress Note Date Seen: Mar 10, 2024 Resident Creating Document: FLORINA DE RESIDENT Medical Necessity Reason Pt with a Central, PICC or Fol: Yes The following are medically ne: Central Line, Barfield Catheter Reason for barfield catheter: Bladder Retention/Obstruc, Strict I&O Subjective Review of Systems HPI: 52/M PMH: HFrEF 30%, CKD stage 5 due to obstructive uropathy, diabetes mellitus type 2, Paroxysmal AFib on Eliquis and metoprolol, hypertension, pulmonary hypertension, BPH, anemia of chronic disease. Patient was brought to the hospital via EMS for worsening shortness of breath for past few days as per mother. As per mother patient was complaining having difficulty breathing which was progressively worsening that prompted her to call EMS.. Initially patient was on CPAP on arrival to EMS however patient was intubated in emergency department. After intubation patient blood pressure progressively worsening and patient had cardiac arrest with pea . Code blue was called, down time was 11 minutes and ROSC was achieved after 11 minutes of code blue. PSH: None as per mother. Home meds: Metoprolol succinate 50 mg daily, Eliquis 5 mg p.o. b.i.d., sevelamer carbonate 800 mg p.o. t.i.d., sodium bicarbonate 650 mg p.o. q.i.d., tamsulosin 0.4 mg p.o. q.a.m.,Amlodipine 10 mg p.o. daily. Social history: NAD Family history: NAD Patient seen and examined at bedside. Patient denied fever, chills, respiratory distress, chest pain, any other symptoms at this point. Patient feeling is fine. No other complaints. No other night events happened. Eyes: No Pain, No Vision change, No Conjunctivae inflammation, No Eyelid inflammation, No Other, No Redness ENT: No Ear pain, No Ear discharge, No Nose pain, No Nose discharge, No Nose congestion, No Mouth pain, No Mouth swelling, No Throat pain, No Throat swelling, No Other Cardiovascular: No Chest Pain, No Palpitations, No Orthopnea, No Paroxysmal Noc. Dyspnea, No Edema, No Lt Headedness, No Other Respiratory: No Cough, No Dry, No Shortness of breath, No SOB with excertion, No Wheezing, No Hemoptysis, No Pleuritic Pain, No Sputum, No Other Gastrointestinal: No Nausea, No Vomiting, No Abdominal Pain, No Diarrhea, No Constipation, No Melena, No Hematochezia, No Other Genitourinary: No Dysuria, No Frequency, No Incontinence, No Hematuria, No Retention, No Other Musculoskeletal: No other, No neck pain, No shoulder pain, No arm pain, No back pain, No hand pain, No leg pain, No foot pain Skin: No Rash, No Lesions, No Jaundice, No Bruising, No Other Objective vital signs Vital Sign Date Time Temp Pulse Resp B/P (MAP) Pulse Ox O2 Delivery O2 Flow Rate FiO2 03/10/24 17:00 97.9 96 18 127/71 (89) 97 97.9 03/10/24 11:50 Room Air 0.0 03/10/24 11:50 21 Total Intake and Output 03/09/24 03/09/24 03/10/24 15:00 23:00 07:00 Intake Total 725 ml 800 ml Output Total 700 ml 600 ml Balance 25 ml 200 ml medications Current Medications Medications Dose Ordered Sig/Kishan Route Start Time Stop Time Status Last Admin Dose Admin Ondansetron HCl 4 mg Q4HP PRN IV 02/19/24 19:00 Enoxaparin Sodium 40 mg BID SC 02/19/24 22:00 UNV Nitroglycerin 0.4 mg Q5MINP PRN SL 02/19/24 19:00 Cefepime HCl 50 ml @ 12.5 mls/hr DAILY IV 02/20/24 10:00 UNV Phenylephrine HCl 250 ml @ 30 mls/hr Q8H20M IV 02/19/24 19:45 UNV Dextrose 50 ml UD PRN IV 02/20/24 00:15 Cancel Calcium Gluconate/ Sodium Chloride 50 ml @ 100 mls/hr Q30M IV 02/20/24 08:15 02/20/24 09:14 Cancel Pantoprazole Sodium 40 mg DAILY IV 02/20/24 10:00 03/09/24 09:17 40 MG Amiodarone HCl 200 mg Q12HR PO 02/21/24 22:00 03/10/24 09:18 200 MG Diagnostic Test (Pha) 1 strip Q6HR 02/25/24 18:00 03/10/24 12:00 1 STRIP Insulin Human Regular Q6HR SC 02/25/24 18:00 03/07/24 23:26 2 UNITS Dextrose 50 ml UD PRN IV 02/25/24 15:00 Sodium Chloride 10 ml QSHIFT@10,22 IV 02/29/24 22:00 03/09/24 20:36 10 ML Levalbuterol HCl 0.625 mg Q6HWA [facility] 03/04/24 00:00 03/10/24 11:50 0.625 MG Acetylcysteine 200 mg Q6HWA [facility] 03/04/24 00:00 03/10/24 11:50 200 MG Trimethoprim/ Sulfamethoxazole 0 ml @ 0 mls/hr PER PHARMACY IV 03/06/24 09:15 Hold Apixaban 2.5 mg BID PO 03/07/24 22:00 03/10/24 09:18 2.5 MG Sevelamer HCl 800 mg TIDWM PO 03/08/24 12:00 03/10/24 12:41 800 MG Furosemide 40 mg BIDD PO 03/10/24 06:00 03/10/24 05:21 40 MG Trimethoprim/ Sulfamethoxazole 1 tab Q12HR PO 03/09/24 22:00 03/10/24 09:17 1 TAB Examination General Appearance: Cooperative. Well developed. Well nourished. Now on Oxymizer now. Head Exam: Normal inspection Neck Exam: Normal inspection. Non-tender. Normal alignment Pulmonary/Respiratory: Chest non-tender. Clear bilateral breath sounds Cardiovascular/Chest: Regular rate and rhythm. No murmurs. No JVD. Peripheral Pulses: 2+ Radial (R). 2+ Radial (L). 2+ Pedal (R). 2+ Pedal (L) Abdominal Exam: Normal bowel sounds. Soft. Nontender. No hepatospenomegaly. No masses Ankle Exam: Negative ankle edema Lower extremities: Negative lower extremity edema Neuro/Mental Status: A&O x4. Coherent laboratory and microbiology Laboratory Tests 03/10/24 15:15 03/08/24 06:12 Test 03/08/24 06:12 Range/Units Serum Glucose 82 74-106 mg/dL Microbiology Date/Time Source Procedure Growth Status 03/04/24 17:46 Blood Blood Culture - Final NO GROWTH AFTER 5 DAYS OF INCUBATION. Complete 03/03/24 21:08 Sputum Gram Stain - Final Complete 03/03/24 21:08 Respiratory Culture - Final Stenotrophomonas maltophilia Complete 02/26/24 14:18 Urine - Catheterized Urine Culture - Final Complete 02/19/24 22:00 Nose MRSA Screen - Final Complete Problem List/Assessment/Plan Problem List/Assessment/Plan Neurology Subacute versus chronic stroke -CT head(03/21/24):Small lower density in the anterior inferior left frontal lobe and in the anterior aspect of the left internal capsule which may be age- indeterminate or subacute to chronic infarcts. -neurology consultation Extubated 03/03/24 CARDIOVASCULAR Cardiac arrest SP ROSC -Coded on 02/19/24. Downtime 11 minutes. Septic shock due to Gram-negative pneumonia stenotrophomonas maltophilia -Off vasopressor now. - Bactrim and Levaquin -Discontinue steroids given hemodynamic stability with one pressor. -CT chest(03/21/24):CT scan of chest and abdomen:1. CHF/volume overload with mild cardiomegaly, small to moderate bilateral pleural effusions, interstitial pulmonary edema, diffuse body wall edema and mild ascites. 2. Patchy and confluent airspace consolidations in all 5 lobes which could reflect multifocal pneumonia and/or pulmonary edema. 3. Endotracheal , gastric tubes, and right IJ central venous catheter are in place as described. 4. Right posterior approach percutaneous nephrostomy tube in place. No hydronephrosis in either kidney. 5. Bilateral urothelial thickening and diffuse bladder wall thickening. Correlate with urinalysis for ascending infection and cystitis, respectively. 6. Nonobstructing bilateral renal calculi. 7. Moderate retained stool in the colon. -repeat blood, urine, sputum culture. Negative T allow. NSTEMI type 2 likely due to above -continue current management of septic shock -cardiology: No origin coronary Angiography needed at this point -EKG: Sinus tachycardia with no ST elevation. Acute on chronic HFrEF( EF 30%) -Echo(02/20):Severely reduced left ventricular systolic function with estimated ejection fraction 15% in a global fashion. -BNP(02/19/24):2390 -underwent dialysis(03/04/24): NO fluid removed lactic acidosis due to septic shock:Resolved Afib with RVR: Rate controlled. -continue Heparin drip -Amiodarone 200 mg BID via GT tube. RESPIRATORY Acute hypoxic respiratory failure due to pneumonia -continue current management of septic shock -On NC Pulmonary edema -Repeat Chest xray in AM /KIDNEY YOMI due to VMN in setting of septic shock and CHF -On dialysis -Continue monitor I/O -Nephrology on board -Lasix 40 mg IV BID -Plan to do tunnel cath for dialysis ? Acute cystitis -Continue antibiotics with meropenam and vancomycin Nonobstructing bilateral renal calculi with Right nephrostomy -Underwent bilateral nephrostomy ,currently has right nephrostomy tube. -nephrostomy tube patent -repeat urine culture -Urology consultation -IR consultation to exchange nephrostomy tube Hyperkalemia; resolved GI Mild ascites -Continue monitor Constipation -PRN lactulose ENDO Uncontrolled diabetes mellitus type 2, HGB A1c 7.4 -initially patient was on insulin drip, discontinued given lower trend of glucose -moderate insulin sliding scale Hypocalcemia and hyperphosphatemia -continue with dialysis. LINES Right IJ (02/19/24): Removed on 02/29/2024. Right PICC line insertion on 02/29/2024. Left IJ Sravan cath(02/20/24) Chantal (02/19/24): Removed Intubated (02/19/24) Extubated (03/03/24) Barfield GT tube: removed NUTRITION Start oral diet as tolerated DVT Prophylaxis: Transitioned from heparin to Eliquis 2.5 mg b.i.d. p.o.. PUD prophylaxis: protonix. Code status discussed with mother greater than 22 minutes full code. Plan: plan to repeat cbc in am. if WBC is downtrending, patient can go home tomorrow a.m. with oral antibiotic Bactrim. Critical care time > 54 minutes- including dw family(Mother) Plan discussed with Dr Richard Plan discussed with: Patient, Other (RN) Dietary Evaluation Review Comments: 1) If GI is accessible consider Glucerna 1.2 @ 75 ml/hr goal rate as tolerated 2) If pt remains NPO >7 days consider TPN to meet at least 75% of estimated needs 3) Advance pt diet when medically feasible to a Renal Specific K2,Low Phos,SAM,2gmNa,80gPro diet (if not receiving dialysis) 4) Continue current plan of care Expected Outcomes/Goals: 1) Pt to receive adequate nutrition support within 7 days of NPO status 2) Pt diet to advance 3) Pt labs to improve 4) F/U in 2-3 days Date of Service: Mar 10, 2024 Billing Provider: CHELSEA RICHARD MD Common Visit Codes: [id number] INP/OBS CARE(HIGH) FLORINA DE RESIDENT Mar 10, 2024 17:21 CHELSEA RICHARD MD Mar 12, 2024 13:15
[2024-03-11] VITALS (12 sets, daily range): BP systolic 119–128; BP diastolic 76–91; PULSE 79–89; RESP 16–19; TEMP 97.5–97.9; O2SAT 92–100
[2024-03-11] MEDS ORDERED: FURO40TA4 PO (08:42)
[2024-03-11] MEDS ORDERED: APIX2.5T PO (08:42)
[2024-03-11] MEDS ORDERED: BACDST PO (08:42)
[2024-03-11] MEDS ORDERED: SODIUM CHL 0.9% 1000 ML BAG XX ONE (09:15)
--- NOTE | 2024-03-11 09:22 | DVHPN2 ---
Progress Note - Dictate Date Seen: Mar 11, 2024 Medical Necessity Reason Pt with a Central, PICC or Fol: Yes The following are medically ne: Central Line, Barfield Catheter Reason for barfield catheter: Bladder Retention/Obstruc, Strict I&O vital signs Vital Sign Date Time Temp Pulse Resp B/P (MAP) Pulse Ox O2 Delivery O2 Flow Rate FiO2 03/11/24 09:00 97.9 83 18 122/76 (91) 94 97.9 03/11/24 08:00 Room Air* 0 21 Total Intake and Output 03/10/24 03/10/24 03/11/24 15:00 23:00 07:00 Intake Total 240 ml 236 ml Output Total 0 ml 260 ml Balance 240 ml -24 ml medications Current Medications Medications Dose Ordered Sig/Kishan Route Start Time Stop Time Status Last Admin Dose Admin Ondansetron HCl 4 mg Q4HP PRN IV 02/19/24 19:00 Enoxaparin Sodium 40 mg BID SC 02/19/24 22:00 UNV Nitroglycerin 0.4 mg Q5MINP PRN SL 02/19/24 19:00 Cefepime HCl 50 ml @ 12.5 mls/hr DAILY IV 02/20/24 10:00 UNV Phenylephrine HCl 250 ml @ 30 mls/hr Q8H20M IV 02/19/24 19:45 UNV Dextrose 50 ml UD PRN IV 02/20/24 00:15 Cancel Calcium Gluconate/ Sodium Chloride 50 ml @ 100 mls/hr Q30M IV 02/20/24 08:15 02/20/24 09:14 Cancel Pantoprazole Sodium 40 mg DAILY IV 02/20/24 10:00 03/09/24 09:17 40 MG Amiodarone HCl 200 mg Q12HR PO 02/21/24 22:00 03/10/24 22:44 200 MG Diagnostic Test (Pha) 1 strip Q6HR 02/25/24 18:00 03/11/24 06:08 1 STRIP Insulin Human Regular Q6HR SC 02/25/24 18:00 03/07/24 23:26 2 UNITS Dextrose 50 ml UD PRN IV 02/25/24 15:00 Sodium Chloride 10 ml QSHIFT@ IV 02/29/24 22:00 03/10/24 22:00 10 ML Levalbuterol HCl 0.625 mg Q6HWA NEB 03/04/24 00:00 03/11/24 07:10 0.625 MG Acetylcysteine 200 mg Q6HWA NEB 03/04/24 00:00 03/11/24 07:10 200 MG Trimethoprim/ Sulfamethoxazole 0 ml @ 0 mls/hr PER PHARMACY IV 03/06/24 09:15 Hold Apixaban 2.5 mg BID PO 03/07/24 22:00 03/10/24 22:45 2.5 MG Sevelamer HCl 800 mg TIDWM PO 03/08/24 12:00 03/11/24 08:14 800 MG Furosemide 40 mg BIDD PO 03/10/24 06:00 03/11/24 05:35 40 MG Trimethoprim/ Sulfamethoxazole 1 tab Q12HR PO 03/09/24 22:00 03/10/24 22:43 1 TAB objective Middle-aged male Intubated Sedated Not on pressors Abdomen is soft No murmur Mild crackles at the bases Scrotal edema laboratory and microbiology Laboratory Tests 03/10/24 15:15 03/08/24 06:12 Test 03/08/24 06:12 Range/Units Serum Glucose 82 74-106 mg/dL Assessment/Plan CKD 5-> ESRD Acute respiratory failure, resolved Septic shock Obstructive uropathy Bilateral nephrolithiasis Right nephrostomy tube Congestive heart failure exacerbation Bilateral pneumonia Diabetes mellitus type 2 Hyperglycemia Anemia of chronic kidney disease Dialysis today epogen diuretics to achieve negative balance, still has residual function chairtime at [facility] placed will be dc today Dietary Evaluation Review Comments: 1) If GI is accessible consider Glucerna 1.2 @ 75 ml/hr goal rate as tolerated 2) If pt remains NPO >7 days consider TPN to meet at least 75% of estimated needs 3) Advance pt diet when medically feasible to a Renal Specific K2,Low Phos,SAM,2gmNa,80gPro diet (if not receiving dialysis) 4) Continue current plan of care Expected Outcomes/Goals: 1) Pt to receive adequate nutrition support within 7 days of NPO status 2) Pt diet to advance 3) Pt labs to improve 4) F/U in 2-3 days Plan discussed with: Patient KALYAN FRAZIER MD Mar 11, 2024 09:22
[2024-03-11 11:14] LABS: Chloride 100 mmol/L (98-107); Potassium 4.2 mmol/L (3.5-5.1); Sodium 134 mmol/L (136-145)
[2024-03-11 11:15] LABS: Anion Gap 9 (5-15); Carbon Dioxide 25 mmol/L (20-31)
[2024-03-11 11:16] LABS: Calcium 8.7 mg/dL (8.7-10.4)
[2024-03-11 11:20] LABS: BUN/Creatinine Ratio 8.5 (10.0-20.0); Blood Urea Nitrogen 64 mg/dL (9-23); Glucose 86 mg/dL (74-106)
--- NOTE | 2024-03-11 16:20 | DVHDSRES ---
Discharge Summary Date of Admission Resident Creating Document: FLORINA DE RESIDENT Feb 19, 2024 at 19:02 Date of Discharge: Mar 11, 2024 Admitting Diagnosis SOB Labs/Diagnostic Data: Laboratory Results Test 03/11/24 13:19 03/11/24 10:45 03/10/24 15:15 03/08/24 06:12 POC Glucose 84 mg/dl (70-106) Sodium Level 134 mmol/L (136-145) Potassium Level 4.2 mmol/L (3.5-5.1) Chloride Level 100 mmol/L (98-107) Carbon Dioxide Level 25 mmol/L (20-31) Anion Gap 9 (5-15) Blood Urea Nitrogen 64 mg/dL (9-23) Creatinine 7.49 mg/dL (0.700-1.30) Glomerular Filtration Rate Calc 8 mL/min (>90) BUN/Creatinine Ratio 8.5 (10.0-20.0) Serum Glucose 86 mg/dL (74-106) Calcium Level 8.7 mg/dL (8.7-10.4) White Blood Count 14.7 10^3/uL (4.4-10.8) Red Blood Count 3.88 10^6/uL (4.5-5.90) Hemoglobin 11.1 g/dL (13.5-17.5) Hematocrit 33.9 % (41.0-53.0) Mean Corpuscular Volume 87.4 fL (80.0-100.0) Mean Corpuscular Hemoglobin 28.5 pg (28.0-32.0) Mean Corpuscular Hemoglobin Concent 32.6 g/dL (32.0-36.0) Red Cell Distribution Width 16.3 % (11.8-14.3) Platelet Count 528 10^3/uL (140-450) Mean Platelet Volume 8.0 fL (6.9-10.8) Neutrophils (%) (Auto) % (37.0-80.0) Lymphocytes (%) (Auto) % (10.0-50.0) Monocytes (%) (Auto) % (0.0-12.0) Basophils (%) (Auto) % (0.0-2.0) Neutrophils # (Auto) 10 ^3/uL (1.6-8.6) Lymphocytes # (Auto) 10 ^3/uL (0.4-5.4) Monocytes # (Auto) 10 ^3/uL (0-1.3) Differential Total Cells Counted 100.0 (100) Neutrophils % (Manual) 70 (37.0-80.0) Band Neutrophils % (Manual) 2 Lymphocytes % (Manual) 15 (10.0-50.0) Monocytes % (Manual) 9 (0-12) Eosinophils % (Manual) 3 (0-7) Basophils % (Manual) 0 (0.0-2.0) Metamyelocytes % (manual) 1 Myelocytes % (Manual) 0 Promyelocytes % (Manual) 0 Blast Cells % (Manual) 0 Reactive Lymphocytes 0 Platelet Estimate Increased Large Platelets Few Poikilocytosis (manual) Slight Eosinophils (%) (Auto) 2.1 % (0.0-7.0) Eosinophils # (Auto) 0.3 10 ^3/uL (0-0.8) Basophils # (Auto) 0.2 10 ^3/uL (0-0.2) Nucleated Red Blood Cells 0.2 % Prothrombin Time 13.1 sec (9.3-11.8) Prothrombin Time INR 1.26 (0.9-1.15) Activated Partial Thromboplast Time 37.0 SEC (24.5-34.5) Test 03/07/24 05:59 03/06/24 18:21 03/06/24 04:50 03/03/24 11:30 Total Bilirubin 0.3 mg/dL (0.2-1.0) Aspartate Amino Transferase (AST) 12 U/L (13-40) Alanine Aminotransferase (ALT) 14 U/L (7-40) Alkaline Phosphatase 124 U/L (46-116) Total Protein 7.1 g/dL (5.7-8.2) Albumin 3.5 g/dL (3.2-4.8) Hepatitis A IgM Antibody Negative Hepatitis B Surface Antigen Negative (Negative) Hepatitis B Core IgM Antibody Negative Hepatitis C Antibody Negative (Negative) Random Vancomycin Level 20.2 ug/mL (5-10) Blood Gas Specimen Type Arterial Blood Gas Sample Site Arterial line Blood Gas Patient Temperature 37.0 Arterial Blood Date Drawn [id number] Arterial Blood pH 7.462 (7.350-7.450) Arterial Blood Partial Pressure CO2 31.2 mmHg (35.0-48.0) Arterial Blood Partial Pressure O2 104.6 mmHg (83.0-108.0) Arterial Blood HCO3 21.8 mmol/L (21.0-28.0) Arterial Blood Oxygen Saturation 97.5 % (94.0-98.0) Arterial Blood Base Excess -1.3 mmol/L (-2.0-3.0) Arterial Blood Oxyhemoglobin 96.9 % (94.0-98.0) Arterial Blood Carboxyhemoglobin 0.3 % (0.5-1.5) Arterial Blood Methemoglobin 0.3 % (0.0-1.5) Test N/a Blood Gas Total Hemoglobin 11.10 g/dL (13.5-17.5) Blood Gas Modality Vent - cpap FiO2 % 30.0 Blood Gas Pressure Support 8 Blood Gas PEEP or CPAP 5.0 Test 03/03/24 06:02 03/02/24 20:30 03/01/24 12:19 02/28/24 02:00 Blood Gas Set Respiration Rate 20.0 Blood Gas Tidal Volume 450.0 Vancomycin Level Trough 20.9 ug/mL (5-10) Blood Gas Critical Value Read Back Yes Blood Gas Notified Whom Elsa jimenez Blood Gas Notified Time [id number] Blood Gas Notified By Lu reyna Magnesium Level 2.1 mg/dL (1.6-2.6) Test 02/24/24 07:10 02/22/24 17:06 02/21/24 03:14 02/20/24 20:10 Blood Gas Spontaneous Rate 20 Blood Gas Inspiratory Pressure 17.0 Bl Gas Inspiratory/Expiratory Ratio 1:2.1 Specimen Drawn By connie rt Iron Level 15 ug/dL (65-175) Total Iron Binding Capacity 368 ug/dL (250-425) Percent Iron Saturation 4.1 % (20-55) Ferritin 415.5 ng/mL (22-322) Lactic Acid Level 1.3 mmol/L (0.4-2.0) Influenza Type A Antigen Negative (Negative) Influenza Type B Antigen Negative (Negative) SARS-CoV-2 Antigen (Rapid) Negative (NEGATIVE) Test 02/20/24 18:02 02/20/24 13:38 02/20/24 03:15 02/20/24 00:25 Urine Color Colorless (Yellow) Urine Clarity Clear (Clear) Urine pH 5.5 (5.0-9.0) Urine Specific Bevier 1.007 (1.001-1.035) Urine Protein 1+ (Negative) Urine Ketones Negative (Negative) Urine Blood 2+ /uL (Negative) Urine Nitrite Negative (Negative) Urine Bilirubin Negative (Negative) Urine Urobilinogen Normal mg/dL (Negative) Urine Leukocyte Esterase 2+ /uL (Negative) Urine RBC 14 /hpf (0 - 3) Urine WBC 7 /hpf (0 - 3) Urine Squamous Epithelial Cells None seen /hpf (<5) Urine Bacteria Few /hpf (None Seen) Urine Creatinine 33.02 mg/dL (30.0-125.0) Urine Protein/Creatinine Ratio 1.94 Urine Sodium 30 mmol/L (40-220) Urine Glucose 1+ mg/dL (Normal) Urine Total Protein 63.9 mg/dL (1-14) Phosphorus Level 5.9 mg/dL (2.4-5.1) Parathyroid Hormone (Intact) 813.8 pg/mL (18.4-80.1) Troponin I High Sensitivity 1886 ng/L (</=54) Test 02/19/24 18:37 02/19/24 17:40 02/19/24 14:16 Urine Opiates Screen Neg (NEGATIVE) Urine Fentanyl Screen Neg (NEGATIVE) Urine Barbiturates Screen Neg (NEGATIVE) Urine Phencyclidine Screen Neg (NEGATIVE) Urine Amphetamines Screen Neg (NEGATIVE) Urine Benzodiazepines Screen Neg (NEGATIVE) Urine Cocaine Screen Neg (NEGATIVE) Urine Cannabinoids Screen Neg (NEGATIVE) Beta-Hydroxybutyric Acid 0.116 mmol/L (< 0.4) B-Type Natriuretic Peptide 2390.74 pg/mL (0-100) Other Laboratory Tests 03/11/24 10:45 03/10/24 15:15 Brief Hx & Hospital Course: Patient is 52-year-old male with medical history of heart failure reduced ejection fraction 30%, CKD stage 5 due to obstructive uropathy, diabetes mellitus type 2, Paroxysmal AFib on Eliquis and metoprolol, hypertension, pulmonary hypertension, BPH, anemia of chronic disease. Was brought to the hospital via EMS for worsening shortness of breath for past few days as per mother. As per mother patient was complaining having difficulty breathing which was progressively worsening that prompted her to call EMS.. Initially patient was on CPAP on arrival to EMS however patient was intubated in emergency department. After intubation patient blood pressure progressively worsening and patient had cardiac arrest with pea . Code blue was called, down time was 11 minutes and ROSC was achieved after 11 minutes of code blue. Patient was transferred to ICU department. CT scan of head was done which showed Small lower density in the anterior inferior left frontal lobe and in the anterior aspect of the left internal capsule which may be age-indeterminate or subacute to chronic infarcts. Patient was also found to have septic shock due to Gram- negative pneumonia stenotrophomonas maltophilia. Initially patient was treated with meropenem and vancomycin and later changed to Bactrim and Levaquin based on culture and sensitivity report of respiratory culture. Patient was also underwent one time bronchoscopy for right lower lobe worsening pneumonia and atelectasis. For AFib with RVR with rate controlled patient continued heparin drip. Given underlying CKD, septic shock nephrology consulted dialysis and Sravan cath was inserted. Per Nephrology patient received dialysis as needed. Patient also underwent exchange of right nephrostomy and tunnel cath for dialysis later. Given patient was hemodynamically stable patient was extubated on 03/03/2024 and transferred to telemetry after few days. Patient continued on IV antibiotic Bactrim and transitioned to oral. Given patient was hemodynamically stable, passed swallow test, underwent physical therapy, chair time was arranged for dialysis patient will be discharged home with advice to follow up in discharge clinic within one week for follow-up and patient will need primary care physician for chronic follow-up. Patient has been sent home with oral antibiotic Bactrim for another 3-4 days. Patient agreed with discharge plan. Condition at Discharge: Stable Final Diagnosis/Problems List Subacute versus chronic stroke Cardiac arrest SP ROSC Septic shock due to Gram-negative pneumonia stenotrophomonas maltophilia NSTEMI type 2 likely due to above Acute on chronic HFrEF( EF 30%) lactic acidosis due to septic shock:Resolved Afib with RVR: Rate controlled. Acute hypoxic respiratory failure due to pneumonia Pulmonary edema YOMI due to VMN in setting of septic shock and CHF Acute cystitis Nonobstructing bilateral renal calculi with Right nephrostomy Hyperkalemia; resolved Mild ascites Uncontrolled diabetes mellitus type 2, HGB A1c 7.4 Hypocalcemia and hyperphosphatemia Discharge Disposition: Home Discharge Instruct/Medications Diet: Cardiac 2g Na,low cholest Activity: No Restrictions, As Tolerated Follow Up/Referral: -Follow up with DC clinic in 1 week, Follow with PCP in 2 week Medications: -see prescription Discharge Statement: "Patient was advised to return to the ER or call 911 if any headaches, dizziness, shortness of breath, chest pain, abdominal pain, bleeding, fevers, or worsening of medical condition. Patient was counseled about treatment plan, medications, possible side effects, patientverbalized understanding. All questions were answered to the best of my ability. This discharge took greater then 30 minutes in planning, reviewing documentation, counseling the patient, and discussing with other team members." ASSESSMENT ASSESSMENT Assessment pneumonia cardia arrest HFrEF Date of Service: Mar 11, 2024 Billing Provider: CHELSEA PIKE MD Common Visit Codes: 38407-VZZ/OBS DISCH DAY >30min FLORINA DE RESIDENT Mar 11, 2024 16:20 CHELSEA PIKE MD Mar 12, 2024 13:15
--- NOTE | 2024-03-13 08:17 | ECG ---
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
== END 2024-03-11 17:40 | disposition home or self-care (01) | DRG 720 ==
LOC: ER 13:57 → EDBD 13:57 → OVERFLOW 19:02 → ICU WEST 20:40 → DOU IN ICU 03-05 23:47 → TELE-WESTW 03-07 02:40 → WEST WING 03-10 16:16
PROVIDERS: ADMIT Internal Medicine Pulmonary Disease; ATTEND Emergency Medicine
PROC: 5A1955Z Respiratory Ventilation, Greater than 96 Consecutive Hours (ICD-10-PCS; principal; 2024-02-19)
PROC: 0BH18EZ Insertion of Endotracheal Airway into Trachea, Via Natural or Artificial Opening Endoscopic (ICD-10-PCS; 2024-02-19)
PROC: 05HM33Z Insertion of Infusion Device into Right Internal Jugular Vein, Percutaneous Approach (ICD-10-PCS; 2024-02-19)
PROC: 5A12012 Performance of Cardiac Output, Single, Manual (ICD-10-PCS; 2024-02-19)
PROC: 5A2204Z Restoration of Cardiac Rhythm, Single (ICD-10-PCS; 2024-02-19)
PROC: 03HY32Z Insertion of Monitoring Device into Upper Artery, Percutaneous Approach (ICD-10-PCS; 2024-02-20)
PROC: 02HV33Z Insertion of Infusion Device into Superior Vena Cava, Percutaneous Approach (ICD-10-PCS; 2024-02-20)
PROC: B548ZZA Ultrasonography of Superior Vena Cava, Guidance (ICD-10-PCS; 2024-02-20)
PROC: 5A1D70Z Performance of Urinary Filtration, Intermittent, Less than 6 Hours Per Day (ICD-10-PCS; 2024-02-20)
PROC: 5A1D70Z Performance of Urinary Filtration, Intermittent, Less than 6 Hours Per Day (ICD-10-PCS; 2024-02-22)
PROC: 5A1D70Z Performance of Urinary Filtration, Intermittent, Less than 6 Hours Per Day (ICD-10-PCS; 2024-02-24)
PROC: 5A1D70Z Performance of Urinary Filtration, Intermittent, Less than 6 Hours Per Day (ICD-10-PCS; 2024-02-26)
PROC: 0BC38ZZ Extirpation of Matter from Right Main Bronchus, Via Natural or Artificial Opening Endoscopic (ICD-10-PCS; 2024-02-27)
PROC: 5A1D70Z Performance of Urinary Filtration, Intermittent, Less than 6 Hours Per Day (ICD-10-PCS; 2024-02-28)
PROC: 02PYX3Z Removal of Infusion Device from Great Vessel, External Approach (ICD-10-PCS; 2024-02-29)
PROC: 06HY33Z Insertion of Infusion Device into Lower Vein, Percutaneous Approach (ICD-10-PCS; 2024-02-29)
PROC: B54BZZA Ultrasonography of Right Lower Extremity Veins, Guidance (ICD-10-PCS; 2024-02-29)
PROC: 5A1D70Z Performance of Urinary Filtration, Intermittent, Less than 6 Hours Per Day (ICD-10-PCS; 2024-03-01)
PROC: 02HV33Z Insertion of Infusion Device into Superior Vena Cava, Percutaneous Approach (ICD-10-PCS; 2024-03-02)
PROC: B548ZZA Ultrasonography of Superior Vena Cava, Guidance (ICD-10-PCS; 2024-03-02)
PROC: 5A1D70Z Performance of Urinary Filtration, Intermittent, Less than 6 Hours Per Day (ICD-10-PCS; 2024-03-02)
PROC: 5A1D70Z Performance of Urinary Filtration, Intermittent, Less than 6 Hours Per Day (ICD-10-PCS; 2024-03-04)
PROC: 0JH63XZ Insertion of Tunneled Vascular Access Device into Chest Subcutaneous Tissue and Fascia, Percutaneous Approach (ICD-10-PCS; 2024-03-07)
PROC: 02H633Z Insertion of Infusion Device into Right Atrium, Percutaneous Approach (ICD-10-PCS; 2024-03-07)
PROC: B5191ZA Fluoroscopy of Inferior Vena Cava using Low Osmolar Contrast, Guidance (ICD-10-PCS; 2024-03-07)
PROC: B549ZZA Ultrasonography of Inferior Vena Cava, Guidance (ICD-10-PCS; 2024-03-07)
PROC: 0T25X0Z Change Drainage Device in Kidney, External Approach (ICD-10-PCS; 2024-03-07)
PROC: 5A1D70Z Performance of Urinary Filtration, Intermittent, Less than 6 Hours Per Day (ICD-10-PCS; 2024-03-08)
PROC: 5A1D70Z Performance of Urinary Filtration, Intermittent, Less than 6 Hours Per Day (ICD-10-PCS; 2024-03-11)
DX: A41.50 Gram-negative sepsis, unspecified (principal); N17.0 Acute kidney failure with tubular necrosis; K72.01 Acute and subacute hepatic failure with coma; J80 Acute respiratory distress syndrome; I46.9 Cardiac arrest, cause unspecified; J15.69 Pneumonia due to other Gram-negative bacteria; J15.9 Unspecified bacterial pneumonia; G92.8 Other toxic encephalopathy; R65.21 Severe sepsis with septic shock; I50.23 Acute on chronic systolic (congestive) heart failure; D68.59 Other primary thrombophilia; R18.8 Other ascites; N18.6 End stage renal disease; E87.20 Acidosis, unspecified; I21.A1 Myocardial infarction type 2; D63.1 Anemia in chronic kidney disease; E83.39 Other disorders of phosphorus metabolism; G93.1 Anoxic brain damage, not elsewhere classified; D63.8 Anemia in other chronic diseases classified elsewhere; I27.20 Pulmonary hypertension, unspecified; E83.51 Hypocalcemia; I13.2 Hypertensive heart and chronic kidney disease with heart failure and with stage 5 chronic kidney disease, or end stage renal disease; N13.9 Obstructive and reflux uropathy, unspecified; I48.0 Paroxysmal atrial fibrillation; D50.9 Iron deficiency anemia, unspecified; E11.22 Type 2 diabetes mellitus with diabetic chronic kidney disease; E11.65 Type 2 diabetes mellitus with hyperglycemia; H57.02 Anisocoria; K02.9 Dental caries, unspecified; E87.5 Hyperkalemia; N30.00 Acute cystitis without hematuria; Z20.822 Contact with and (suspected) exposure to COVID-19; N20.0 Calculus of kidney; I25.2 Old myocardial infarction; Z91.199 Patient's noncompliance with other medical treatment and regimen due to unspecified reason; Z88.0 Allergy status to penicillin; Z88.8 Allergy status to other drugs, medicaments and biological substances; Z82.49 Family history of ischemic heart disease and other diseases of the circulatory system; Z83.3 Family history of diabetes mellitus; Z93.6 Other artificial openings of urinary tract status; Z79.01 Long term (current) use of anticoagulants; Z99.2 Dependence on renal dialysis
CPT/HCPCS: 31500; 31645; 36415; 36558; 36569; 36600; 50435; 70450; 71045; 71250; 74018; 74176; 75984; 76604; 76775; 76870; 76937; 77001; 80048; 80053; 80074; 80202; 80307; 81001; 82010; 82565; 82570; 82728; 82805; 82962; 83540; 83550; 83605; 83735; 83880; 83970; 84100; 84132; 84156; 84300; 84484; 85007; 85025; 85027; 85610; 85730; 86850; 86900; 86901; 87040; 87070; 87077; 87081; 87086; 87186; 87205; 87340; 87426; 87804; 90935; 92610; 93005; 93306; 93886; 93926; 93971; 94002; 94003; 94640; 94660; 95819; 97110; 97116; 97163; 97530; 99152; 99291; 99292; C1894; G0378; J0692; J1642; J1756; J1815; J1956; J2185; J2250; J2470; J2704; J3480; J3490; J7060; P9047

== ENCOUNTER → 2024-04-02 | Outpatient (CLI) | payer MEDICAID ==
[~2024-04-02] MED LIST changes: +APIX2.5T PO; -APIX5TAB PO; +FURO40TA4 PO; -METO-289 PO; -METO-6 PO
[2024-04-02 15:54] LABS: Chloride 101 mmol/L (98-107)
[2024-04-02 15:55] LABS: Anion Gap 8 (5-15); Carbon Dioxide 27 mmol/L (20-31)
[2024-04-02 16:01] LABS: Blood Urea Nitrogen 37 mg/dL (9-23); Glucose 133 mg/dL (74-106); Sodium 136 mmol/L (136-145)
== END | disposition home or self-care (01) ==
LOC: LAB 15:17
PROVIDERS: ATTEND Internal Medicine
DX: R06.09 Other forms of dyspnea (principal)
CPT/HCPCS: 36415; 80048

== ENCOUNTER 2024-04-17 09:07 | Emergency (ER) | payer MEDICAID ==
[2024-04-17 10:12] VITALS: BP 141/72; PULSE 84; RESP 16; TEMP 98.2; O2SAT 98
--- NOTE | 2024-04-17 10:37 | ED.PDOC ---
History of Present Illness HPI Comments A 53 YEAR OLD MALE PRESENTS TO THE ED WITH COMPLAINT OF REQUEST FOR RAHMAN CATHETER LEG BAG CHANGE. PATIENT STATES HE HAS A RAHMAN CATHETER IN PLACE AND NOTES HIS LEG BAG BEGAN TO LEAK EARLIER TODAY. PATIENT IS REQUESTING THAT HIS LEG BAG BE CHANGED. PATIENT DENIES FEVER, CHILLS, SHORTNESS OF BREATH, CHEST PA IN, ABDOMINAL PAIN, NAUSEA, VOMITING, HEADACHE, OR OTHER COMPLAINTS. NO OTHER SYMPTOMS OR MODIFYING FACTORS AT THIS TIME. PATIENT IS ALERT, ORIENTED X 4, AND HAS STEADY GAIT. Chief Complaint: Tube Replacement Time Seen by MD: 09:32 Reviewed Notes: Nurses Notes, Medications, Allergies Allergies: Coded Allergies: Ampicillin (Verified Allergy, Unknown, NAUSEA AND VOMITING, 02/14/24) Sulbactam (Verified Allergy, Unknown, NAUSEA AND VOMITING, 02/14/24) Home Meds Active Scripts Sulfamethoxazole W/Trimethopri (Bactrim Ds Tablet) 1 Tab Tb, 1 TAB PO Q12HR for 3 Days, #6 TAB Prov:FLORINA DE RESIDENT 03/11/24 Furosemide (Furosemide) 40 Mg Tab, 40 MG PO ONCE for 20 Days, #20 TAB Prov:FLORINA ED RESIDENT 03/11/24 Apixaban Base (ELIQUIS) 2.5 Mg Tab, 2.5 MG PO BID for 30 Days, #60 TAB Prov:FLORINA DE RESIDENT 03/11/24 Amiodarone HCl (Amiodarone HCl) 200 Mg Tab, 200 MG PO Q12HR for 30 Days, #60 TAB 1 Refill Prov:GLADYS HARPER MD 02/15/24 Reported Medications Sevelamer Carbonate (Sevelamer Carbonate) 800 Mg Tab, 1 TAB PO TID for 30 Days, #90 02/11/24 Sodium Bicarbonate (Sodium Bicarbonate) 650 Mg Tab, 2 TAB PO QID for 30 Days, #240 02/11/24 Tamsulosin Hcl (Tamsulosin Hcl) 0.4 Mg Cap, 1 CAP PO QAM 02/10/24 Finasteride (Finasteride) 5 Mg Tab, 1 TAB PO DAILY 02/10/24 Carvedilol (Carvedilol) 3.125 Mg Tab, 1 TAB PO BID 02/10/24 Amlodipine Besylate (Amlodipine Besylate) 10 Mg Tab, 1 TAB PO DAILY 02/10/24 Information Source: Patient Mode of Arrival: Ambulatory Severity: None Timing: Days Duration: Since onset, Days Prehospital treatment: None Medication Refill: For: Other (RAHMAN CATHETER LEG BAG CHANGE) Past Medical History PAST MEDICAL HISTORY: CHF, CKF, DM, HTN Family History Family History: No family hx of Cancer, No family hx of DM, No family hx of Heart emily Social History Smoker: Non-Smoker Alcohol: Occasionally Drugs: Denies Drug Use Lives In: Home Constitutional: denies: chills, diaphoresis, fatigue, fever, malaise, sweats, weakness, others EENTM: denies: blurred vision, double vision, ear bleeding, ear discharge, ear drainage, ear pain, ear ringing, eye pain, eye redness, hearing loss, mouth pain, mouth swelling, nasal discharge, nose bleeding, nose congestion, nose pain, photophobia, tearing, throat pain, throat swelling, voice changes, others Respiratory: denies: cough, hemoptysis, orthopnea, SOB at rest, shortness of breath, SOB with excertion, stridor, wheezing, others Cardiovascular: denies: chest pain, dizzy spells, diaphoresis, Dyspnea on exertion, edema, irregular heart beat, left arm pain, lightheadedness, palpitations, PND, syncope, others Gastrointestinal: denies: abdomen distended, abdominal pain, blood streaked bowels, constipated, diarrhea, dysphagia, difficulty swallowing, hematemesis, melena, nausea, poor appetite, poor fluid intake, rectal bleeding, rectal pain, vomiting, others Genitourinary: reports: others (RAHMAN CATHETER BAG REMOVAL ); denies: burning, dysuria, flank pain, frequency, hematuria, incontinence, penile discharge, penile sore, pain, testicle pain, testicle swelling, urgency Neurological: denies: dizziness, fainting, headache, left sided numbness, left sided weakness, numbness, paresthesia, pre-existing deficit, right sided numbness, right sided weakness, seizure, speech problems, tingling, tremors, weakness, others Musculoskeletal: denies: back pain, gout, joint pain, joint swelling, muscle pain, muscle stiffness, neck pain, others Integumetry: denies: bruises, change in color, change in hair/nails, dryness, laceration, lesions, lumps, rash, wounds, others Allergic/Immunocompromised: denies: Difficulty Healing, Frequent Infections, Hives, Itching, others Hematologic/Lymphatic: denies: anemia, blood clots, easy bleeding, easy bruising, swollen glands, others Endocrine: denies: excessive hunger, excessive sweating, excessive thirst, excessive urination, flushing, intolerance to cold, intolerance to heat, unexplained weight gain, unexplained weight loss, others Psychiatric: denies: anxiety, bipolar disorder, depression, hopeless, panic disorder, schizophrenia, sleepless, suicidal, others All Other Systems: Reviewed and Negative Physical Exam General Appearance: No Apparent Distress, Normal HEENT: Normal ENT Inspection, PERRL/EOMI, Pharynx Normal, TMs Normal Neck: Full Range of Motion, Non-Tender, Normal, Normal Inspection Respiratory: Chest Non-Tender, Lungs Clear, No Accessory Muscle Use, No Respiratory Distress, Normal Breath Sounds Cardiovascular: No Edema, No JVD, No Murmur, No Gallop, Normal Peripheral Pulses, Regular Rate/Rhythm Breast Exam: Deferred Gastrointestinal: No Organomegaly, Non Tender, No Pulsatile Mass, Normal Bowel Sounds, Soft Genitalia: Deferred Pelvic: Deferred Rectal: Deferred Extremities: No calf tenderness, Normal capillary refill, Normal inspection, Normal range of motion, Non-tender, No pedal edema Musculoskeletal : Apperance: Normal Neurologic: Alert, accounts administrator II-XII nml as Tested, No Motor Deficits, Normal Affect, Normal Mood, No Sensory Deficits Cerebellar Function: Normal Reflexes: Normal Skin: Dry, Normal Color, Warm Peripheral Pulses: 2+ carotid (R), 2+ carotid (L) Lymphatic: No Adenopathy Was a procedure done? Was a procedure done?: No Differential Dx Considerations may include: CATHETER LEG BAG CHANGE X-Ray, Labs, Meds, VS Vital Signs Date Time Temp Pulse Resp B/P (MAP) Pulse Ox O2 Delivery O2 Flow Rate FiO2 04/17/24 10:12 98.2 84 16 141/72 (95) 98 98.2 04/17/24 10:12 84 16 98 Room Air 04/17/24 09:30 98.2 84 16 141/72 (95) 98 X-Ray, Labs, Meds, VS Comment EXTERNAL MEDICAL RECORDS REVIEWED: [NONE] INDEPENDENT HISTORIANS: [NONE] SOCIAL DETERMINANTS OF HEALTH: [NONE] LABS ORDERED: NONE REVIEWED AND INTERPRETED RESULTS: NONE IMAGING ORDERED: NONE TREATMENTS ORDERED: PATIENT'S RAHMAN CATHETER LEG BAG WAS CHANGED. PROCEDURES PERFORMED: NONE CRITICAL CARE TIME: NONE I HAVE DISCUSSED THE PATIENT WITH THE ATTENDING PHYSICIAN DR. BASSETT AND HE AGREES WITH THE PATIENT'S PLAN OF CARE AND DISPOSITION. BASED ON HISTORY OF PRESENT ILLNESS, AND PHYSICAL EXAM, PATIENT WILL BE DISCHARGED HOME. SHARED DECISION MAKING: PATIENT INSTRUCTED TO FOLLOW UP WITH PRIMARY CARE PROVIDER IN 1-2 DAYS FOR RE-EVALUATION OF SYMPTOMS. PATIENT VERBALIZES UNDERSTANDING TO RETURN TO ED FOR NEW OR WORSENING SYMPTOMS OR IF FOLLOW UP WITH PCP CANNOT BE OBTAINED. PATIENT FEELS COMFORTABLE GOING HOME AT THIS TIME. ALL QUESTIONS ADDRESSED AT TIME OF DISCHARGE. Time of 1ST Reevaluation: 10:50 Reevaluation 1ST: Improved Patient Education/Counseling: Diagnosis, Treatment, Need For Follow Up Family Education/Counseling: Diagnosis, Treatment, Need For Follow Up Medical Screening: No EMC Exist At This Time Departure 1 Departure Time of Disposition: 10:40 Impression: Primary Impression: Encounter for evaluation of Rahman catheter Disposition: 01 HOME / SELF CARE / HOMELESS Condition: Stable Additional Instructions: FOLLOW-UP WITH PCP IN 1 TO 2 DAYS. RETURN TO ED FOR ANY NEW OR WORSENING SYMPTOMS. Discharged With: Self Critical Care Note Critical Care Time?: No Stability Stability form required: No I personally scribed for KARTHIKEYAN DAWN ([email or web address]) on 04/17/24 at 10:36. Electronically submitted by Isaiah Paul ([email or web address]). KARTHIKEYAN DAWN Apr 17, 2024 10:36
== END 2024-04-17 10:41 | disposition home or self-care (01) ==
LOC: ER 09:07
DX: T85.638A Leakage of other specified internal prosthetic devices, implants and grafts, initial encounter (principal); I13.0 Hypertensive heart and chronic kidney disease with heart failure and stage 1 through stage 4 chronic kidney disease, or unspecified chronic kidney disease; E11.22 Type 2 diabetes mellitus with diabetic chronic kidney disease; N18.9 Chronic kidney disease, unspecified; I50.9 Heart failure, unspecified; Z46.6 Encounter for fitting and adjustment of urinary device; Z79.01 Long term (current) use of anticoagulants; Z88.1 Allergy status to other antibiotic agents; Z79.899 Other long term (current) drug therapy; Z88.8 Allergy status to other drugs, medicaments and biological substances; Y92.89 Other specified places as the place of occurrence of the external cause

== ENCOUNTER → 2024-05-15 | Outpatient (CLI) | payer MEDICAID | END | disposition home or self-care (01) | LOC: LAB 13:39 | PROVIDERS: ATTEND Urology | DX: N40.1 Benign prostatic hyperplasia with lower urinary tract symptoms (principal) | CPT/HCPCS: 84153 ==

== ENCOUNTER 2024-06-14 09:34 | Emergency (ER) | payer MEDICAID ==
[~2024-06-14] VITALS: Ht 177.8 cm; Wt 80.0 kg
[2024-06-14 10:00] VITALS: PULSE 81; RESP 18; O2SAT 95
[2024-06-14] MEDS: SODIUM CHLORIDE 0.9% 500 ML IV ONE (10:27)
--- NOTE | 2024-06-14 10:49 | ED.PDOC ---
HPI (NEURO) HPI Comments 53M presents to the ER w/ no prior Hx associated to the c/c of dizziness. Pt reports that had 2 nephrostomy tube but one was removed last month and that he currently one on his right flank. Pt does have dialysis 3 days of the week. Pt was at his dialysis appointment this morning and felt dizzy but denies having a syncopal episode. Pt notes that he is not dizzy anymore. PMHx of CHF, CKF, DM and HTN. Denies chills, fever, N/V/D, SOB, CP or other associated symptom's, modifiers, or recent injuries or sick contact at this time. Chief Complaint: Syncope Time Seen by MD: 10:05 Primary Care Provider: UNKNOWN Mode of Arrival: EMS Severity: Moderate Dizziness/Weakness Severity: Unable to do activities Headache Severity: None Timing: Hours Duration: Since onset, Hours Prehospital treatment: None Onset: With light exertion Circumstances: Spontaneous Symptoms: None Before: Normal During: Awake After: Normal Mentation (but dizzy) History of: DM Associated Signs and Symptoms: None Past Medical History PAST MEDICAL HISTORY: CHF, CKF, DM, HTN Surgical History: Denies all surgeries Family History Family History: Reviewed,noncontributory to illness, Unknown Social History Smoker: Non-Smoker Alcohol: Denies ETOH Use Drugs: Denies Drug Use Lives In: Home Constitutional: denies: chills, diaphoresis, fatigue, fever, malaise, sweats, weakness, others EENTM: denies: blurred vision, double vision, ear bleeding, ear discharge, ear drainage, ear pain, ear ringing, eye pain, eye redness, hearing loss, mouth pain, mouth swelling, nasal discharge, nose bleeding, nose congestion, nose pain, photophobia, tearing, throat pain, throat swelling, voice changes, others Respiratory: denies: cough, hemoptysis, orthopnea, SOB at rest, shortness of breath, SOB with excertion, stridor, wheezing, others Cardiovascular: denies: chest pain, dizzy spells, diaphoresis, Dyspnea on exertion, edema, irregular heart beat, left arm pain, lightheadedness, palpitations, PND, syncope, others Gastrointestinal: denies: abdomen distended, abdominal pain, blood streaked bowels, constipated, diarrhea, dysphagia, difficulty swallowing, hematemesis, melena, nausea, poor appetite, poor fluid intake, rectal bleeding, rectal pain, vomiting, others Genitourinary: denies: burning, dysuria, flank pain, frequency, hematuria, incontinence, penile discharge, penile sore, pain, testicle pain, testicle swelling, urgency, others Neurological: reports: dizziness; denies: fainting, headache, left sided numbness, left sided weakness, numbness, paresthesia, pre-existing deficit, right sided numbness, right sided weakness, seizure, speech problems, tingling, tremors, weakness, others Musculoskeletal: denies: back pain, gout, joint pain, joint swelling, muscle pain, muscle stiffness, neck pain, others Integumetry: denies: bruises, change in color, change in hair/nails, dryness, laceration, lesions, lumps, rash, wounds, others Allergic/Immunocompromised: denies: Difficulty Healing, Frequent Infections, Hives, Itching, others Hematologic/Lymphatic: denies: anemia, blood clots, easy bleeding, easy bruising, swollen glands, others Endocrine: denies: excessive hunger, excessive sweating, excessive thirst, excessive urination, flushing, intolerance to cold, intolerance to heat, unexplained weight gain, unexplained weight loss, others Psychiatric: denies: anxiety, bipolar disorder, depression, hopeless, panic disorder, schizophrenia, sleepless, suicidal, others All Other Systems: Reviewed and Negative Physical Exam General Appearance: No Apparent Distress, Normal HEENT: Normal ENT Inspection, PERRL/EOMI, Pharynx Normal, TMs Normal Neck: Full Range of Motion, Non-Tender, Normal, Normal Inspection Respiratory: Chest Non-Tender, Lungs Clear, No Accessory Muscle Use, No Respiratory Distress, Normal Breath Sounds Cardiovascular: No Edema, No JVD, No Murmur, No Gallop, Normal Peripheral Pulses, Regular Rate/Rhythm Breast Exam: Deferred Gastrointestinal: No Organomegaly, Non Tender, No Pulsatile Mass, Normal Bowel Sounds, Soft, Other (Nephrostomy presents in the right side) Genitalia: Deferred Pelvic: Deferred Rectal: Deferred Extremities: No calf tenderness, Normal capillary refill, Normal inspection, Normal range of motion, Non-tender, No pedal edema Musculoskeletal : Apperance: Normal Neurologic: Alert, fitness club manager II-XII nml as Tested, No Motor Deficits, Normal Affect, Normal Mood, No Sensory Deficits Cerebellar Function: Normal Reflexes: Normal Skin: Dry, Normal Color, Warm Peripheral Pulses: 1+ carotid (R), 1+ carotid (L) Lymphatic: No Adenopathy EKG EKG : Pulse Rate (adult): 84 [place]: Normal Cardiac Rhythm: NSR Hypertrophy: LAE ST: Lat, Ischemia Was a procedure done? Was a procedure done?: No Differential Diagnosis (SZ) Seizure: Hypocalcemia, Hypoglycemia, Hyponatremia CVA: Electrolyte Imbalance General Weakness: Anemia, Dehydration, Electrolyte imbalance, Hypoglycemia, Hypotension, Hypovolemia, Renal failure Headache: N/A X-Ray, Labs, Meds, VS Vital Signs Date Time Temp Pulse Resp B/P (MAP) Pulse Ox O2 Delivery O2 Flow Rate FiO2 06/14/24 12:00 79 06/14/24 12:00 78 10 130/77 (94) 100 06/14/24 11:57 84 06/14/24 10:15 82 06/14/24 10:00 81 18 95 Nasal Cannula* 2 28 06/14/24 10:00 77 18 111/73 (86) 98 06/14/24 09:42 97.8 86 18 131/90 (104) 99 06/14/24 09:37 84 Lab Test 06/14/24 10:41 Range/Units White Blood Count 17.0 H 4.4-10.8 10^3/uL Red Blood Count 4.12 L 4.5-5.90 10^6/uL Hemoglobin 12.7 L 13.5-17.5 g/dL Hematocrit 38.2 L 41.0-53.0 % Mean Corpuscular Volume 92.7 80.0-100.0 fL Mean Corpuscular Hemoglobin 30.8 28.0-32.0 pg Mean Corpuscular Hemoglobin Concent 33.2 32.0-36.0 g/dL Red Cell Distribution Width 18.7 H 11.8-14.3 % Platelet Count 391 140-450 10^3/uL Mean Platelet Volume 7.8 6.9-10.8 fL Neutrophils (%) (Auto) 71.1 37.0-80.0 % Lymphocytes (%) (Auto) 16.7 10.0-50.0 % Monocytes (%) (Auto) 10.5 0.0-12.0 % Eosinophils (%) (Auto) 1.0 0.0-7.0 % Basophils (%) (Auto) 0.7 0.0-2.0 % Neutrophils # (Auto) 12.1 H 1.6-8.6 10 ^3/uL Lymphocytes # (Auto) 2.8 0.4-5.4 10 ^3/uL Monocytes # (Auto) 1.8 H 0-1.3 10 ^3/uL Eosinophils # (Auto) 0.2 0-0.8 10 ^3/uL Basophils # (Auto) 0.1 0-0.2 10 ^3/uL Nucleated Red Blood Cells 0.1 % Sodium Level 136 136-145 mmol/L Potassium Level 3.8 3.5-5.1 mmol/L Chloride Level 98 98-107 mmol/L Carbon Dioxide Level 28 20-31 mmol/L Anion Gap 10 5-15 Blood Urea Nitrogen 19 9-23 mg/dL Creatinine 4.59 H 0.700-1.30 mg/dL Glomerular Filtration Rate Calc 14 >90 mL/min BUN/Creatinine Ratio 4.1 L 10.0-20.0 Serum Glucose 140 H 74-106 mg/dL Calcium Level 10.2 8.7-10.4 mg/dL Magnesium Level 2.0 1.6-2.6 mg/dL X-Ray, Labs, Meds, VS Comment Course in the emergency department eventful patient came in because of dizziness and possible near syncopal episode after his dialysis no other symptomatology The chest x-ray shows mild pulmonary congestion CBC 91575% neutrophils normal H&H BNP BUN 19 creatinine 4.59 and a blood sugar of 140 Magnesium 2.0 Patient has been medicated rehydrated he is feeling much better and will be sent home to follow up as directed Time of 1ST Reevaluation: 10:35 Reevaluation 1ST: Unchanged Time of 2ND Reevaluation: 11:47 Reevaluation 2ND: Improved Consultation: PCP, Other (Nephrology) Patient Education/Counseling: Diagnosis, Treatment, Prognosis, Need For Follow Up Family Education/Counseling: Diagnosis, Treatment, Prognosis, Need For Follow Up, No Family Present Departure 1 Departure Time of Disposition: 11:49 Impression: Primary Impression: Postural dizziness with near syncope Additional Impressions: Nephrostomy present End stage renal failure on dialysis Hyperglycemia Disposition: 01 HOME / SELF CARE / HOMELESS Condition: Fair Critical Care Note Critical Care Time?: No Stability Stability form required: No Heart Score Heart Score: Heart Score Response (Comments) Value History Slightly Suspicious 0 EKG Repolarization Disturb 1 Age 45-64 1 Risk Factors >3 or Hx ASHD 2 Troponin N/A 0 Total 4 I personally scribed for JENNIFER TOLENTINO MD ([email or web address]) on 06/14/24 at 10:49. E lectronically submitted by Thiago Rehman ([email or web address]). JENNIFER TOLENTINO MD Jun 14, 2024 10:49
[2024-06-14 11:04] LABS: Basophils # (auto) 0.1 10 ^3/uL (0-0.2); Basophils % (auto) 0.7 % (0.0-2.0); Eosinophils # (auto) 0.2 10 ^3/uL (0-0.8); Hematocrit 38.2 % (41.0-53.0); Hemoglobin 12.7 g/dL (13.5-17.5); Lymphocytes # (auto) 2.8 10 ^3/uL (0.4-5.4); Lymphocytes % (auto) 16.7 % (10.0-50.0); Mean Corpuscular Hemoglobin 30.8 pg (28.0-32.0); Mean Corpuscular Hgb Conc. 33.2 g/dL (32.0-36.0); Mean Corpuscular Volume 92.7 fL (80.0-100.0); Monocytes # (auto) 1.8 10 ^3/uL (0-1.3); Monocytes % (auto) 10.5 % (0.0-12.0); Neutrophils # (auto) 12.1 10 ^3/uL (1.6-8.6); Neutrophils % (auto) 71.1 % (37.0-80.0); Nucleated Red Blood Cells % 0.1 %; Platelet Count (auto) 391 10^3/uL (140-450); Red Blood Cells 4.12 10^6/uL (4.5-5.90); Red Cell Distribution Width 18.7 % (11.8-14.3)
[2024-06-14 11:12] LABS: Anion Gap 10 (5-15); Carbon Dioxide 28 mmol/L (20-31); Chloride 98 mmol/L (98-107); Potassium 3.8 mmol/L (3.5-5.1)
[2024-06-14 11:13] LABS: Calcium 10.2 mg/dL (8.7-10.4)
--- NOTE | 2024-06-14 11:17 | DVH ---
EXAM: XR Chest, 2 Views CLINICAL INDICATION: Syncopal episode TECHNIQUE: Frontal and lateral views of the chest. COMPARISON: XY CHEST TWO VIEWS ROUTINE on DOS: 04/12/23 FINDINGS: LUNGS AND PLEURAL SPACES: Mild pulmonary congestion. No consolidation. No pneumothorax. HEART: Unremarkable. No cardiomegaly. MEDIASTINUM: Unremarkable. Normal mediastinal contour. BONES/JOINTS: Unremarkable. No acute fracture. TUBES, LINES AND DEVICES: Right internal jugular central venous catheter tip in the superior vena c john. OTHER FINDINGS: . . . .. IMPRESSION: Mild pulmonary congestion.
[2024-06-14 11:18] LABS: BUN/Creatinine Ratio 4.1 (10.0-20.0); Blood Urea Nitrogen 19 mg/dL (9-23)
[2024-06-14 11:23] LABS: Glucose 140 mg/dL (74-106); Sodium 136 mmol/L (136-145)
[2024-06-14 12:00] VITALS: BP 130/77; PULSE 79; RESP 10; O2SAT 100
--- NOTE | 2024-06-15 19:42 | ECG ---
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
== END 2024-06-14 13:49 | disposition home or self-care (01) ==
LOC: ER 09:34 → EDBD 09:34 → EDUNIT# 09:34 → ER 13:49
DX: I13.2 Hypertensive heart and chronic kidney disease with heart failure and with stage 5 chronic kidney disease, or end stage renal disease (principal); I50.9 Heart failure, unspecified; N18.6 End stage renal disease; E11.65 Type 2 diabetes mellitus with hyperglycemia; E11.22 Type 2 diabetes mellitus with diabetic chronic kidney disease; R42 Dizziness and giddiness; R55 Syncope and collapse; Z93.6 Other artificial openings of urinary tract status; Z99.2 Dependence on renal dialysis
CPT/HCPCS: 36415; 71046; 80048; 83735; 85025; 93005

== ENCOUNTER → 2024-06-23 | Outpatient (CLI) | payer MEDICAID ==
[2024-06-23 13:08] LABS: Basophils # (auto) 0.1 10 ^3/uL (0-0.2); Basophils % (auto) 0.7 % (0.0-2.0); Eosinophils # (auto) 0.2 10 ^3/uL (0-0.8); Eosinophils % (auto) 1.2 % (0.0-7.0); Hematocrit 36.3 % (41.0-53.0); Hemoglobin 11.9 g/dL (13.5-17.5); Lymphocytes # (auto) 3.2 10 ^3/uL (0.4-5.4); Lymphocytes % (auto) 17.5 % (10.0-50.0); Mean Corpuscular Hemoglobin 30.2 pg (28.0-32.0); Mean Corpuscular Hgb Conc. 32.6 g/dL (32.0-36.0); Mean Corpuscular Volume 92.6 fL (80.0-100.0); Monocytes # (auto) 1.3 10 ^3/uL (0-1.3); Monocytes % (auto) 7.3 % (0.0-12.0); Neutrophils # (auto) 13.4 10 ^3/uL (1.6-8.6); Neutrophils % (auto) 73.3 % (37.0-80.0); Platelet Count (auto) 346 10^3/uL (140-450); Red Blood Cells 3.92 10^6/uL (4.5-5.90); Red Cell Distribution Width 18.2 % (11.8-14.3); White Blood Cell 18.4 10^3/uL (4.4-10.8)
[2024-06-23 13:46] LABS: Triglycerides 109 mg/dL (< 150)
[2024-06-23 13:47] LABS: Alanine Aminotransferase 26 U/L (7-40); Albumin 4.6 g/dL (3.2-4.8); Anion Gap 11 (5-15); BUN/Creatinine Ratio 6.4 (10.0-20.0); Bilirubin, Total 0.6 mg/dL (0.2-1.0); Calcium 9.8 mg/dL (8.7-10.4); Carbon Dioxide 24 mmol/L (20-31); Chloride 101 mmol/L (98-107); Cholesterol 141 mg/dL (< 200); Glucose 95 mg/dL (74-106); HDL Cholesterol 46 mg/dL (40-59); LDL Cholesterol 72 mg/dL (< 100); Potassium 4.7 mmol/L (3.5-5.1); Total Protein 7.9 g/dL (5.7-8.2)
[2024-06-23 13:48] LABS: Alkaline Phosphatase 132 U/L (46-116); Aspartate Aminotransferase < 8 U/L (13-40); Blood Urea Nitrogen 47 mg/dL (9-23); Sodium 136 mmol/L (136-145)
== END | disposition home or self-care (01) ==
LOC: LAB 12:42
PROVIDERS: ATTEND Internal Medicine
DX: I13.2 Hypertensive heart and chronic kidney disease with heart failure and with stage 5 chronic kidney disease, or end stage renal disease (principal); I50.9 Heart failure, unspecified; E11.22 Type 2 diabetes mellitus with diabetic chronic kidney disease; E11.65 Type 2 diabetes mellitus with hyperglycemia; N18.5 Chronic kidney disease, stage 5; I63.9 Cerebral infarction, unspecified; E55.9 Vitamin D deficiency, unspecified
CPT/HCPCS: 36415; 80053; 80061; 82306; 83036; 84439; 84443; 85025

== ENCOUNTER → 2025-01-06 | Outpatient (CLI) | payer MEDICAID ==
[~2025-01-06] VITALS: Ht 180.3 cm; Wt 81.6 kg
[2025-01-06] MEDS: REGADENOSON 0.4 MG/5 ML SYRG IV ONE ×2 (11:06→11:10)
--- NOTE | 2025-01-06 13:23 | DVHSR ---
APPROVED REPORT Exam: Nuclear Stress Test BMI: 0 Stress Test Details HR Max Heart Rate (APMHR): 167.914728 bpm Target HR (85% APMHR): 141.982921 bpm BP ECG Stress ECG Conclusion markedly abnormal nuc large ischemci burdern in lateral wall along with infarct lvef 50% NM EXAM: Myocardial Perfusion REST/STRESS Imaging Protocol: Rest Tc-99m/Stress Tc-99m 1 day Resting Data Rest SPECT myocardial perfusion imaging was performed in supine position 45 minutes following the int ravenous injection of 10.1 mCi of Tc-99m Sestamibi. Time of rest injection: 10:01 Date: 01/06/2025 Time of rest imagin:01 Date: 01/06/2025 Administration Route: IV Administration Site: Right Arm Pharmacologic Stress Pharmacologic stress test was performed by injecting Regadenoson 0.4 mg IV push followed by the intra venous injection of 31.4 mCi of Tc-99m Sestamibi. Time of stress injection: 11:10 Date: 01/06/2025 Time of stress imagin:10 Date: 01/06/2025 Administration Route: IV Administration Site: Right Arm Gated Stress SPECT was performed 60 minutes after stress injection. The images were gated to evaluate regional wall motion and calculate left ventricular ejection fracti on. Stress only was performed in the Supine position. Nuclear Conclusion Nuclear Findings: positive for ischemia markedly abnormal nuc large ischemci burdern in lateral wall along with infarct lvef 50%
== END | disposition home or self-care (01) ==
LOC: XYW 09:15
PROVIDERS: ATTEND Internal Medicine
DX: Z01.810 Encounter for preprocedural cardiovascular examination (principal); I25.9 Chronic ischemic heart disease, unspecified; Z12.11 Encounter for screening for malignant neoplasm of colon; N13.9 Obstructive and reflux uropathy, unspecified
CPT/HCPCS: 78452; 93017; A9500; J2785

== ENCOUNTER 2025-02-11 09:06 | Inpatient (IN) | payer MEDICAID ==
[2025-02-10 10:53] LABS: Hematocrit 35.5 % (41.0-53.0); Hemoglobin 11.8 g/dL (13.5-17.5); Mean Corpuscular Hemoglobin 31.6 pg (28.0-32.0); Mean Corpuscular Volume 95.1 fL (80.0-100.0); Nucleated Red Blood Cells % 0.0 %
[2025-02-10 11:09] LABS: INR 1.04 (0.9-1.15); Partial Thromboplastin Time 32.2 SEC (24.5-34.5); Prothrombin Time 11.0 sec (9.3-11.8)
[2025-02-10 11:33] LABS: Alanine Aminotransferase 16 U/L (7-40); Anion Gap 14 (5-15); BUN/Creatinine Ratio 7.0 (10.0-20.0); Carbon Dioxide 25 mmol/L (20-31); Chloride 100 mmol/L (98-107); Glucose 98 mg/dL (74-106); Sodium 139 mmol/L (136-145); Total Protein 7.9 g/dL (5.7-8.2)
[2025-02-10 11:34] LABS: Albumin 4.3 g/dL (3.2-4.8); Bilirubin, Total 0.5 mg/dL (0.2-1.0)
[2025-02-10 11:36] LABS: Alkaline Phosphatase 143 U/L (46-116); Calcium 8.3 mg/dL (8.7-10.4)
[2025-02-10 11:39] LABS: Blood Urea Nitrogen 85 mg/dL (9-23); Potassium 5.7 mmol/L (3.5-5.1)
[~2025-02-11] VITALS: Ht 180.3 cm; Wt 93.2 kg
[2025-02-11] VITALS (11 sets, daily range): BP systolic 100–133; BP diastolic 50–79; PULSE 58–64; RESP 12–20; TEMP 97.9–98.1; O2SAT 93–99
[~2025-02-11 09:06] MED LIST changes: -AMLO1TAB23 PO; +APIX5TAB PO; -CARV3.1240 PO; +CARV6.2551 PO; +EMPA1TAB PO; +ERGO2000 PO; -FIN5T PO; -SODI650T PO; -TAMS0.4C39 PO
[2025-02-11] MEDS: fentaNYL CITRATE 100 MCG/2 ML VL ONE (12:30)
[2025-02-11] MEDS: ANGIOMAX 250 MG VIAL IV ONE (12:30)
[2025-02-11] MEDS: HEPARIN SODIUM (PORCINE) 5000 UNITS/ML 1ML VIAL ONE (12:30)
[2025-02-11] MEDS: VERAPAMIL 2.5MG/ML INJ 2ML VIAL IV ONE (12:30)
[2025-02-11] MEDS: LIDOCAINE 2%HCL (LOCAL ANESTH.) INJ 20ML MDV ONE (12:31)
[2025-02-11] MEDS: MIDAZOLAM HCL 2MG/2ML 2ml VIAL (1mg/ml) ONE (12:31)
[2025-02-11] MEDS: SODIUM CHL 0.9% 0 ML ONE (12:31)
[2025-02-11] MEDS: IODIXANOL 320MG/ML 100ML BTL IV ONE (12:31)
--- NOTE | 2025-02-11 13:25 | DVHOP2 ---
Operative Report - 2 Report Details Date: 02/11/25 Preop Diagnosis: CAD Postop Diagnosis: CAD Surgeon: Hortensia Jones MD Anesthesiologist: Conscious sedation Anesthesia: Mac, Local Consent: The patient was informed of the risks and benefits of the procedure. These include but are not limited to complications of anesthesia, postoperative infection, incomplete relief of symptoms, recurrence of symptoms, damage to blood vessels, nerves and tendons, deep venous thrombosis, pulmonary embolism and possible need for repeat surgery in the future. Complications: No complications Findings: Triple-vessel disease Indications for Surgery: Chest pain Name of Procedure Performed Left heart catheterization. Bilateral cine coronary angiography. Left ventri culography. Procedure Details Procedure Details: Prior local anesthesia with 2% lidocaine to the right wrist and full informed consent obtained the patient was prepped and draped in the usual fashion followed by placement of a six [place] sheath into radial artery through which a tiger catheter was used for ventriculography cannulation of both right and left coronary ostia. No complications. Hemodynamics: Aortic blood pressure was 90/50 with an end-diastolic pressure of 15. There was no gradient across the aortic valve on pullback. Coronary anatomy: The RCA is dominant. It is normal in its proximal ostial segment. The proximal portion has a 50-60% stenosis. The midportion has a 60- 70% eccentric lesion. The distal RCA prior to the origin of the PDA has a 90% stenosis. The PDA is rather small with an ostial 95% stenosis. The origin of the posterolateral branches has 75-80% stenosis. The left main is large and normal. Left anterior descending coronary artery is a large vessel. It has a proximal 90% stenosis at the level of the 1st diagonal branch. The mid and distal segments are otherwise free of significant disease with only moderate plaquing. The diagonal itself has subsequent lesions of 99% in the proximal portion. The circumflex is large vessel. It has a proximal 99% stenosis. 100% occluded after the 2nd marginal. The 2nd marginal is occluded after 1st superior branch the distal circumflex is faintly seen in the intracoronary collaterals. Ventriculography in the AGUIRRE projection shows an EF of 55%. Impression: Significant three-vessel coronary artery disease as delineated. Normal left ventricular ejection fraction. Mild elevated left ventricular end- diastolic pressure. Recommendations: Patient will be referred for coronary revascularization with bypass surgery. An internal mammary artery to the LAD with subsequent grafts to the marginal diagonal and posterolateral/PDA branches. Condition Fair Disposition Still a Patient Date of Service: Feb 11, 2025 Billing Provider: HORTENSIA JONES Sr., MD Cardiology Common Codes: 06450-CYPPZNJ INP/OBS CARE (High) Cardiology Procedure Codes: 40405-CJSY HEART CATH W/INTRA INJ HORTENSIA JONES Sr., MD Feb 11, 2025 13:25
[2025-02-11] MEDS ORDERED: MORPHINE SULFATE INJ 2 MG/ml SYRG IV PRN (13:45)
[2025-02-11] MEDS ORDERED: NITROGLYCERIN 0.4 MG SL TAB SL PRN (13:45)
--- NOTE | 2025-02-11 13:49 | DVHHP2 ---
History of Present Illness Reason for Visit: CAD for angio History of Present Illness David Gilmore is a 53-year-old male with past medical history of CHF, ESRD on HD (M/W/F), obstructive uropathy, diabetes, hyperlipidemia, hypertension and medical noncompliance who presents to the hospital for an angio. 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 Patient reports that he gets dialysis on Sunday and Sunday with his last dialysis was on Sunday with 3 L out. Patient also reports that he smokes cigars and drinks occasionally. He reports that his PermCath was placed in December of last year and was having productive clear phlegm since then. Patient denies any recent trauma or injury, recent sick contacts, recent ingestion of spoiled food, chest pain, shortness of breath, fever, chills, lightheadedness, weakness, dizziness, abdominal pain, nausea, vomiting, diarrhea, or urinary symptoms. Patient was updated on his plan of care. Cardiovascular: CHF, HTN, hyperipidemia Renal/: Chronic renal failure Endocrine: Diabetes Past Medical History Obstructive uropathy Past Surgical History: Other (Right chest PermCath) Family History: Hypertension, Other (Dad from hep C. Mom living with hypertension.) Smoke: # pack years (Cigars) ALCOHOL: occassional Drugs: None Lives: with Family Domestic Violence: Neg Review of Systems Constitutional: Yes: Other (CAD) Allergies: Coded Allergies: NO KNOWN ALLERGIES (Unverified , 02/11/25) Exam General Appearance: Alert, Oriented X3, Cooperative, No acute distress HEENT: Atraumatic, PERRLA, EOMI, Mucous membr. moist/pink Respiratory: Clear to auscultation, Normal air movement Cardiovascular: Regular rate, Normal S1, Normal S2, No murmurs Abdominal: Normal bowel sounds, Soft Extremities: No clubbing, No cyanosis, No edema Neuro: Normal speech, Strength at 5/5 X4 ext, Normal tone, Sensation intact Psych/Mental Status: Mental status NL, Mood NL Labs/Xrays Labs Test 02/10/25 10:43 Range/Units White Blood Count 12.7 H 4.4-10.8 10^3/uL Red Blood Count 3.73 L 4.5-5.90 10^6/uL Hemoglobin 11.8 L 13.5-17.5 g/dL Hematocrit 35.5 L 41.0-53.0 % Mean Corpuscular Volume 95.1 80.0-100.0 fL Mean Corpuscular Hemoglobin 31.6 28.0-32.0 pg Mean Corpuscular Hemoglobin Concent 33.2 32.0-36.0 g/dL Red Cell Distribution Width 14.5 H 11.8-14.3 % Platelet Count 304 140-450 10^3/uL Mean Platelet Volume 8.1 6.9-10.8 fL Neutrophils (%) (Auto) 71.4 37.0-80.0 % Lymphocytes (%) (Auto) 18.5 10.0-50.0 % Monocytes (%) (Auto) 8.1 0.0-12.0 % Eosinophils (%) (Auto) 1.0 0.0-7.0 % Basophils (%) (Auto) 1.0 0.0-2.0 % Neutrophils # (Auto) 9.1 H 1.6-8.6 10 ^3/uL Lymphocytes # (Auto) 2.3 0.4-5.4 10 ^3/uL Monocytes # (Auto) 1.0 0-1.3 10 ^3/uL Eosinophils # (Auto) 0.1 0-0.8 10 ^3/uL Basophils # (Auto) 0.1 0-0.2 10 ^3/uL Nucleated Red Blood Cells 0.0 % Prothrombin Time 11.0 9.3-11.8 sec Prothrombin Time INR 1.04 0.9-1.15 Activated Partial Thromboplast Time 32.2 24.5-34.5 SEC Sodium Level 139 136-145 mmol/L Potassium Level 5.7 *H 3.5-5.1 mmol/L Chloride Level 100 98-107 mmol/L Carbon Dioxide Level 25 20-31 mmol/L Anion Gap 14 5-15 Blood Urea Nitrogen 85 *H 9-23 mg/dL Creatinine 12.09 *H 0.700-1.30 mg/dL Glomerular Filtration Rate Calc 5 >90 mL/min BUN/Creatinine Ratio 7.0 L 10.0-20.0 Serum Glucose 98 74-106 mg/dL Calcium Level 8.3 L 8.7-10.4 mg/dL Total Bilirubin 0.5 0.2-1.0 mg/dL Aspartate Amino Transferase (AST) 12 L 13-40 U/L Alanine Aminotransferase (ALT) 16 7-40 U/L Alkaline Phosphatase 143 H 46-116 U/L Total Protein 7.9 5.7-8.2 g/dL Albumin 4.3 3.2-4.8 g/dL SEPSIS Sepsis Screen Physician Orders Cl Left Heart Cath (02/11/25 07:24) Verapamil 2.5mg/Ml Inj (02/11/25 12:30) * Hospitalist Consult (02/11/25 ) * Anode Rebuilder Consult (02/11/25 ) Assessment/Plan Assessment/Plan Assessment Triple-vessel CAD Leukocytosis unclear etiology Normocytic anemia Hyperkalemia Elevated ALP Cigar use Alcohol use History of CHF History of ESRD on HD (M/W/F) History of obstructive uropathy History of diabetes History of medical noncompliance History of hyperlipidemia History of hypertension Plan Admit to tele Antiemetics Pain management Aspirin + statin Strict I&Os Daily weights Hemoglobin A1c ISS and Accu-Cheks Blood cultures Lactic Chest x-ray CRP CBC CMP IV antibiotics-ceftriaxone Diet Home medications reconciled, cleared by cardiology DVT prophylaxis-Lovenox PUD prophylaxis-PPIs Discussed plan of care with patient and nurse Nephro consult Cardiology following Social work - Higher level of care for CABG per Cardiology Counseled patient on cessation of cigar and alcohol use [id number] Advanced care planning discussed [id number] Behavior change smoking greater than 10 minutes about use of other options also gave option of nicotine patch 94335 Preventive counseling healthy eating habits, physical activity, and regular checkups Plan discussed with: Patient Date of Service: Feb 11, 2025 Billing Provider: HARDY CHILDRESS Common Visit Codes: 15521-WEBCLFQ INP/OBS CARE (HIGH) Secondary Visit Codes: 36439-[id number] COUNSELING IND, 34135-STWDC CHNG SMOKING >10MIN, 22842-[id number] CARE PLAN 30 MINUTES HARDY CHILDRESS Feb 11, 2025 13:49
[2025-02-11] MEDS ORDERED: DEXTROSE (50%) 50ML SYRG IV PRN (14:30)
[2025-02-11] MEDS ORDERED: PATIENTS OWN MEDICATION (Ergocalciferol (Vitamin D2) 50,000 UNIT) PO SCH (14:30)
[2025-02-11 14:49] LABS: Hematocrit 33.6 % (41.0-53.0); Hemoglobin 11.1 g/dL (13.5-17.5); Mean Corpuscular Hemoglobin 31.3 pg (28.0-32.0); Mean Corpuscular Volume 94.9 fL (80.0-100.0); Nucleated Red Blood Cells % 0.0 %
[2025-02-11] MEDS: FUROSEMIDE 40 MG/4 ML VIAL IV SCH (15:06)
[2025-02-11 15:10] LABS: Alanine Aminotransferase 16 U/L (7-40); Albumin 3.8 g/dL (3.2-4.8); Alkaline Phosphatase 104 U/L (46-116); Anion Gap 16 (5-15); BUN/Creatinine Ratio 8.0 (10.0-20.0); Chloride 107 mmol/L (98-107); Cholesterol 182 mg/dL (< 200); Glucose 103 mg/dL (74-106); Potassium 4.9 mmol/L (3.5-5.1); Sodium 142 mmol/L (136-145); Total Protein 7.0 g/dL (5.7-8.2); Triglycerides 91 mg/dL (< 150)
[2025-02-11 15:11] LABS: Bilirubin, Total 0.6 mg/dL (0.2-1.0)
--- NOTE | 2025-02-11 15:21 | DVH ---
INDICATION: CAD TECHNIQUE: Frontal view of the chest. COMPARISON: 02/10/2025 FINDINGS: Right IJ dialysis catheter remains in satisfactory position. The heart and mediastinal contours are grossly unremarkable. There is no evidence of pleural disease. The lungs are clear. The bony stru ctures of the chest are intact without fracture. IMPRESSION: 1. No evidence of acute disease.
[2025-02-11 15:22] LABS: Carbon Dioxide 19 mmol/L (20-31)
[2025-02-11 15:23] LABS: Calcium 7.7 mg/dL (8.7-10.4)
[2025-02-11 15:27] LABS: Blood Urea Nitrogen 98 mg/dL (9-23)
[2025-02-11 15:28] LABS: HDL Cholesterol 35 mg/dL (40-59)
[2025-02-11] MEDS ORDERED: ERGOCALCIFEROL 50,000 UNIT(1.25MG) CAP PO SCH (16:45)
[2025-02-11] MEDS: InsuLIN REG 1unit/0.01ml Soln (100units/ml) SC SCH (17:00)
[2025-02-11] MEDS: ACCU-CHEK COMFORT CURVE STRIP VI SCH (17:39)
[2025-02-11] MEDS: AMIODARONE HCL 200 MG TAB PO SCH (21:25)
[2025-02-11] MEDS: SEVELAMER 800 MG TAB PO SCH (21:25)
[2025-02-11] MEDS: CARVEDILOL 3.125 MG TAB PO SCH (21:27)
[2025-02-12] MEDS ORDERED: EMPAGLIFLOZIN 10 MG TAB PO SCH (07:00)
[2025-02-12] MEDS ORDERED: SODIUM CHL 0.9% 1000 ML BAG XX ONE (07:00)
[2025-02-12] MEDS ORDERED: ENOXAPARIN SOD 30 MG/0.3 ML SYRINGE SC SCH (10:00)
--- NOTE | 2025-02-13 11:28 | DVHDS ---
DATE OF DISCHARGE: 02/12/2025 HISTORY OF PRESENT ILLNESS: The patient is a 53-year-old gentleman who was initially admitted for coronary angiography and has previous history of congestive heart failure, end-stage renal disease, diabetes, hypertension, and hyperlipidemia. HOSPITAL COURSE: The patient was noted, on the coronary angiogram, to have triple vessel coronary artery disease. The patient was therefore transferred to a higher level of care for open heart surgery to [facility]. FINAL DIAGNOSES: * Coronary artery disease with triple vessel disease and need for CABG. * Chronic systolic/diastolic heart failure. * End-stage renal disease, on hemodialysis. * Diabetes mellitus. * Hyperlipidemia. * Hypertension. * History of renal calculi. MD RAVEN Nunez/JOCELYN/PRESTON TID: [id number] RECEIPT: [id number]
== END 2025-02-12 00:05 | disposition short-term general hospital (02) | DRG 191 ==
LOC: CATH 09:06 → EDSTATUS 10:20 → OVERFLOW 13:42 → TELE-WESTW 16:10
PROVIDERS: ATTEND Internal Medicine
PROC: 4A023N7 Measurement of Cardiac Sampling and Pressure, Left Heart, Percutaneous Approach (ICD-10-PCS; principal; 2025-02-11)
PROC: B211YZZ Fluoroscopy of Multiple Coronary Arteries using Other Contrast (ICD-10-PCS; 2025-02-11)
PROC: B215YZZ Fluoroscopy of Left Heart using Other Contrast (ICD-10-PCS; 2025-02-11)
DX: I25.10 Atherosclerotic heart disease of native coronary artery without angina pectoris (principal); I13.2 Hypertensive heart and chronic kidney disease with heart failure and with stage 5 chronic kidney disease, or end stage renal disease; N18.6 End stage renal disease; I50.42 Chronic combined systolic (congestive) and diastolic (congestive) heart failure; D64.9 Anemia, unspecified; D72.829 Elevated white blood cell count, unspecified; E11.22 Type 2 diabetes mellitus with diabetic chronic kidney disease; E78.5 Hyperlipidemia, unspecified; F17.290 Nicotine dependence, other tobacco product, uncomplicated; E87.5 Hyperkalemia; N13.9 Obstructive and reflux uropathy, unspecified; Z99.2 Dependence on renal dialysis; Z87.442 Personal history of urinary calculi; Z01.812 Encounter for preprocedural laboratory examination; Z82.49 Family history of ischemic heart disease and other diseases of the circulatory system; Z79.82 Long term (current) use of aspirin; Z79.4 Long term (current) use of insulin; Z91.199 Patient's noncompliance with other medical treatment and regimen due to unspecified reason
CPT/HCPCS: 36415; 71045; 80053; 80061; 82962; 83605; 84443; 85025; 85610; 85730; 86141; 87040; 87077; 87186; 93458; 99152; G0378; J2250; Q9967

== ENCOUNTER 2025-03-04 14:52 | Inpatient (IN) | payer MEDICAID ==
[~2025-03-04] VITALS: Ht 180.3 cm; Wt 86.7 kg
--- NOTE | 2025-03-04 15:22 | ED.PDOC ---
History of Present Illness HPI Comments 53M presents to the ER w/ spouse and w/ prior MHx of PR, CHF, DM, HTN, Thyroid, ESRD(M,W,F-they already did before arrival): SHx of Nephrostomy Tube, left arm fistula, left knee Sx and the c/c of Urinary symptoms. Spouse reports on the pt jung in the ER on 02/17/25 and getting his nephrostomy tube changed, and transferred to [place] for a open heart Sx but was unable to, due from "bacteria". Pt states on having right sided flank pain which started yesterday and woke up with flank discomfort/hematuria in the nephrostomy bag.Denies any other symptoms at this time. Denies chills, fever, N/V/D, SOB, CP. Denies any other associated symptom's, modifiers, or recent injuries or sick contact at this time. Chief Complaint: Urinary Time Seen by MD: 15:15 Primary Care Provider: UNKNOWN Reviewed Notes: Nurses Notes, Medications, Allergies Allergies: Coded Allergies: NO KNOWN ALLERGIES (Unverified , 02/11/25) Home Meds Active Scripts Sulfamethoxazole W/Trimethopri (Bactrim Ds Tablet) 1 Tab Tb, 1 TAB PO Q12HR for 3 Days, #6 TAB Prov:FLORINA DE RESIDENT 03/11/24 Furosemide (Furosemide) 40 Mg Tab, 40 MG PO ONCE for 20 Days, #20 TAB Prov:FLORINA DE RESIDENT 03/11/24 Apixaban Base (ELIQUIS) 2.5 Mg Tab, 2.5 MG PO BID for 30 Days, #60 TAB Prov:FLORINA DE RESIDENT 03/11/24 Amiodarone HCl (Amiodarone HCl) 200 Mg Tab, 200 MG PO Q12HR for 30 Days, #60 TAB 1 Refill Prov:GLADYS HARPER MD 02/15/24 Reported Medications Ergocalciferol (VITAMIN D2) 2,000 Unit Tab, 74117 UNIT PO QWEEKLY, TAB 02/10/25 Empagliflozin (Jardiance) 10 Mg Tab, 10 MG PO QAM, TAB 02/10/25 Carvedilol (Carvedilol) 6.25 Mg Tab, 6.25 MG PO Q12HR for 30 Days, MG 02/10/25 Apixaban Base (ELIQUIS) 5 Mg Tab, 5 MG PO BID, TAB 02/10/25 Sevelamer Carbonate (Sevelamer Carbonate) 800 Mg Tab, 1 TAB PO TID for 30 Days, #90 02/11/24 Information Source: Patient, Spouse Mode of Arrival: Ambulatory Severity: Moderate Timing: Hours Duration: Since onset, Hours Prehospital treatment: None Past Medical History PAST MEDICAL HISTORY: CHF, DM, ESRD (M, W, F), HTN, PR, Thyroid Surgical History (Other): Nesphrostomy Tube, Left arm fistula, Left knee Sx Family History Family History: Reviewed,noncontributory to illness, Unknown Social History Smoker: Non-Smoker Alcohol: Denies ETOH Use Drugs: Denies Drug Use Lives In: Home Constitutional: denies: chills, diaphoresis, fatigue, fever, malaise, sweats, weakness, others EENTM: denies: blurred vision, double vision, ear bleeding, ear discharge, ear drainage, ear pain, ear ringing, eye pain, eye redness, hearing loss, mouth pain, mouth swelling, nasal discharge, nose bleeding, nose congestion, nose pain, photophobia, tearing, throat pain, throat swelling, voice changes, others Respiratory: denies: cough, hemoptysis, orthopnea, SOB at rest, shortness of breath, SOB with excertion, stridor, wheezing, others Cardiovascular: denies: chest pain, dizzy spells, diaphoresis, Dyspnea on exertion, edema, irregular heart beat, left arm pain, lightheadedness, palpitations, PND, syncope, others Gastrointestinal: denies: abdomen distended, abdominal pain, blood streaked bowels, constipated, diarrhea, dysphagia, difficulty swallowing, hematemesis, melena, nausea, poor appetite, poor fluid intake, rectal bleeding, rectal pain, vomiting, others Genitourinary: reports: flank pain, hematuria; denies: burning, dysuria, frequency, incontinence, penile discharge, penile sore, pain, testicle pain, testicle swelling, urgency, others Neurological: denies: dizziness, fainting, headache, left sided numbness, left sided weakness, numbness, paresthesia, pre-existing deficit, right sided numbness, right sided weakness, seizure, speech problems, tingling, tremors, weakness, others Musculoskeletal: denies: back pain, gout, joint pain, joint swelling, muscle pain, muscle stiffness, neck pain, others Integumetry: denies: bruises, change in color, change in hair/nails, dryness, laceration, lesions, lumps, rash, wounds, others Allergic/Immunocompromised: denies: Difficulty Healing, Frequent Infections, Hives, Itching, others Hematologic/Lymphatic: denies: anemia, blood clots, easy bleeding, easy bru ising, swollen glands, others Endocrine: denies: excessive hunger, excessive sweating, excessive thirst, e xcessive urination, flushing, intolerance to cold, intolerance to heat, unexplained weight gain, unexplained weight loss, others Psychiatric: denies: anxiety, bipolar disorder, depression, hopeless, panic disorder, schizophrenia, sleepless, suicidal, others All Other Systems: Reviewed and Negative Physical Exam General Appearance: Mild Distress HEENT: Normal ENT Inspection, Pharynx Normal, TMs Normal Neck: Full Range of Motion, Non-Tender, Normal, Normal Inspection Respiratory: Chest Non-Tender, Lungs Clear, No Accessory Muscle Use, No Respiratory Distress, Normal Breath Sounds Cardiovascular: No Edema, No JVD, No Murmur, No Gallop, Normal Peripheral Pulses, Regular Rate/Rhythm Breast Exam: Deferred Gastrointestinal: No Organomegaly, Non Tender, No Pulsatile Mass, Normal Bowel Sounds, Soft Genitalia: Deferred Pelvic: Deferred Rectal: Deferred Extremities: No calf tenderness, Normal capillary refill, Normal inspection, Normal range of motion, Non-tender, No pedal edema Musculoskeletal : Location: Right Extremity Location: Back (Nephrostomy tube in place with grape colored urine) Apperance: Normal Neurologic: Alert, rosin barrel filler II-XII nml as Tested, No Motor Deficits, Normal Affect, Normal Mood, No Sensory Deficits Cerebellar Function: Normal Reflexes: Normal Skin: Dry, Normal Color, Warm Lymphatic: No Adenopathy Was a procedure done? Was a procedure done?: No Differential Dx Considerations may include: Generalized weakness, abdominal pain, UTI, nephrostomy in place X-Ray, Labs, Meds, VS Vital Signs Date Time Temp Pulse Resp B/P (MAP) Pulse Ox O2 Delivery O2 Flow Rate FiO2 03/04/25 17:14 99 20 98 Room Air* 0 21 03/04/25 14:54 98.2 75 16 119/82 96 98.2 Lab Test 03/04/25 15:26 Range/Units White Blood Count 15.2 H 4.4-10.8 10^3/uL Red Blood Count 3.83 L 4.5-5.90 10^6/uL Hemoglobin 12.1 L 13.5-17.5 g/dL Hematocrit 36.0 L 41.0-53.0 % Mean Corpuscular Volume 93.8 80.0-100.0 fL Mean Corpuscular Hemoglobin 31.6 28.0-32.0 pg Mean Corpuscular Hemoglobin Concent 33.7 32.0-36.0 g/dL Red Cell Distribution Width 14.4 H 11.8-14.3 % Platelet Count 342 140-450 10^3/uL Mean Platelet Volume 7.8 6.9-10.8 fL Neutrophils (%) (Auto) 71.4 37.0-80.0 % Lymphocytes (%) (Auto) 17.7 10.0-50.0 % Monocytes (%) (Auto) 8.9 0.0-12.0 % Eosinophils (%) (Auto) 1.1 0.0-7.0 % Basophils (%) (Auto) 0.9 0.0-2.0 % Neutrophils # (Auto) 10.9 H 1.6-8.6 10 ^3/uL Lymphocytes # (Auto) 2.7 0.4-5.4 10 ^3/uL Monocytes # (Auto) 1.4 H 0-1.3 10 ^3/uL Eosinophils # (Auto) 0.2 0-0.8 10 ^3/uL Basophils # (Auto) 0.1 0-0.2 10 ^3/uL Nucleated Red Blood Cells 0.0 % Prothrombin Time 11.3 9.3-11.8 sec Prothrombin Time INR 1.07 0.9-1.15 Activated Partial Thromboplast Time 31.7 24.5-34.5 SEC Sodium Level 135 L 136-145 mmol/L Potassium Level 3.7 3.5-5.1 mmol/L Chloride Level 92 L 98-107 mmol/L Carbon Dioxide Level 30 20-31 mmol/L Anion Gap 13 5-15 Blood Urea Nitrogen 41 H 9-23 mg/dL Creatinine 8.06 H 0.700-1.30 mg/dL Glomerular Filtration Rate Calc 7 >90 mL/min BUN/Creatinine Ratio 5.1 L 10.0-20.0 Serum Glucose 114 H 74-106 mg/dL Calcium Level 9.3 8.7-10.4 mg/dL CAT scan of the abdomen and pelvis shows: IMPRESSION: 1. No hydronephrosis or obstructing renal stone. Adequately positioned right ne phrostomy tube. 2. Bilateral punctate nonobstructing renal stones measuring up to 3 mm. 3. Bladder wall thickening with mild trabeculation. Correlate with urinalysis to exclude cystitis. 4. Inspissated rectal stool could be seen with constipation. Mild rectal wall thickening concerning for developing stercoral colitis. Disimpaction suggested. The patient's CBC shows an elevated white blood cell count of 15.2 The chemistry panel shows a BUN of 41 and a creatinine of 8.06. At this time, the patient is being admitted to the hospitalist. The nephrostomy tube is in place Urology will be consulted on this patient. Images Reviewed?: Images reviewed and evaluated by me Time of 1ST Reevaluation: 15:45 Reevaluation 1ST: Unchanged Patient Education/Counseling: Diagnosis, Treatment, Prognosis Family Education/Counseling: Diagnosis, Treatment, Prognosis SEPSIS Sepsis Screen Date sepsis recognized/suspect: Mar 04, 2025 Time Sepsis recognized/suspect: 1500 Recent Procedure: No On Antibiotic Therapy: No Respiratory Rate >20: No Heart Rate >90: No Temp<36 C (96.8 F) or >38.3 C: No SBP <90 or MAP <65 mmHG: No New Acute Mental Status Change: No Is the patient on CPAP, BIPAP,: No Physician Orders Urinalysis (03/04/25 15:11) Ct Ab Pel Wo Con-No Oral Or Iv (03/04/25 15:11) Heplock Iv (03/04/25 15:11) Ceftriaxone 1gm/50ml (Rocephin) (03/04/25 17:30) Vital Signs Date Time Temp Pulse Resp B/P (MAP) Pulse Ox O2 Delivery O2 Flow Rate FiO2 03/04/25 17:14 99 20 98 Room Air* 0 21 03/04/25 14:54 98.2 75 16 119/82 96 98.2 Laboratory Tests Test 03/04/25 15:26 White Blood Count 15.2 10^3/uL (4.4-10.8) H Departure 1 Departure Time of Disposition: 17:59 Impression: Primary Impression: Intractable abdominal pain Additional Impressions: Nephrostomy present Hematuria Qualified Codes: R31.9 - Hematuria, unspecified Acute UTI Disposition: ADMITTED INPATIENT Admit to: Med Surg Condition: Fair Critical Care Note Critical Care Time?: No Stability Stability form required: Yes Unstable for transfer: ED Physician Assesment (Clinical assesment) Heart Score Heart Score: Heart Score Response (Comments) Value History N/A 0 EKG N/A 0 Age N/A 0 Risk Factors N/A 0 Troponin N/A 0 Total 0 I personally scribed for JASON BASSETT MD ([email or web address]) on 03/04/25 at 15:22. Electronically submitted by Thiago Rehman ([email or web address]). JASON BASSETT MD Mar 04, 2025 15:22
[2025-03-04 15:41] LABS: Hematocrit 36.0 % (41.0-53.0); Hemoglobin 12.1 g/dL (13.5-17.5); Mean Corpuscular Hemoglobin 31.6 pg (28.0-32.0); Mean Corpuscular Volume 93.8 fL (80.0-100.0); Nucleated Red Blood Cells % 0.0 %
[2025-03-04 15:51] LABS: Potassium 3.7 mmol/L (3.5-5.1)
[2025-03-04 15:52] LABS: Anion Gap 13 (5-15); Calcium 9.3 mg/dL (8.7-10.4); Carbon Dioxide 30 mmol/L (20-31)
--- NOTE | 2025-03-04 15:55 | DVH ---
Indication: Hematuria with a history of kidney stones Comparison: None. Technique: Helical axial scans were performed through the abdomen and pelvis without intravenous contrast. Subsequently, coronal and sagittal reformations were obtained. Dose lowering techniques have been used including automated exposure control and adjustment of mA and/or kv according to patient size. FINDINGS: Limited evaluation of the vasculature and solid organs due to lack of intravenous contrast. LUNGS BASES: Clear LIVER: Normal noncontrast appearance of the liver SPLEEN: Normal GALLBLADDER: Normal PANCREAS: Normal ADRENAL GLANDS: Normal KIDNEYS: No hydronephrosis or obstructing renal stone. Adequately positioned right nephrostomy tube. Bilateral punctate nonobstructing renal stones measuring up to 3 mm. GI: Inspissated stool in the rectum with mild rectal wall thickening. No bowel dilation. Normal appendix. LYMPH NODES: Normal VASCULAR STRUCTURES: Normal BLADDER: Wall thickening with mild trabeculation. PELVIC ORGAN: Normal FREE AIR OR FREE FLUID: None OSSEOUS STRUCTURES: Multilevel degenerative changes of the spine. SOFT TISSUES: Normal DLP is 1245.55 mGy-cm. CTDI vol is 19.05 mGy. IMPRESSION: 1. No hydronephrosis or obstructing renal stone. Adequately positioned right nephrostomy tube. 2. Bilateral punctate nonobstructing renal stones measuring up to 3 mm. 3. Bladder wall thickening with mild trabeculation. Correlate with urinalysis to exclude cystitis. 4. Inspissated rectal stool could be seen with constipation. Mild rectal wall thickening concerning for developing stercoral colitis. Disimpaction suggested.
[2025-03-04 15:57] LABS: BUN/Creatinine Ratio 5.1 (10.0-20.0)
[2025-03-04 16:04] LABS: INR 1.07 (0.9-1.15); Partial Thromboplastin Time 31.7 SEC (24.5-34.5); Prothrombin Time 11.3 sec (9.3-11.8)
[2025-03-04 16:05] LABS: Blood Urea Nitrogen 41 mg/dL (9-23); Glucose 114 mg/dL (74-106); Sodium 135 mmol/L (136-145)
[2025-03-04 16:06] LABS: Chloride 92 mmol/L (98-107)
[2025-03-04 17:14] VITALS: PULSE 99; RESP 20; O2SAT 98
[2025-03-04 19:53] LABS: Urine Amorphous Crystal FEW /hpf (None Seen); Urine Protein, UAD 3+ (Negative)
--- NOTE | 2025-03-04 21:00 | DVHINCON2 ---
Date of service: Mar 04, 2025 Referring Physician Frank Isbell, nurse practitioner Reason for Consultation End-stage renal disease to manage hemodialysis History of Present Illness Patient is 53-year-old male with past medical history significant for CHF, DM, ESRD (M, W, F) last hemodialysis today, HTN, NC, nephrolithiasis, hypothyroidism, obstructive uropathy who was admitted for right flank pain and hematuria in the nephrostomy bag for two days. On admission Nephrology is consulted to manage Past Medical History PAST MEDICAL HISTORY: CHF, DM, ESRD (M, W, F), HTN, NC, Thyroid, nephrolithiasis, obstructive uropathy Past Surgical History Right Nephrostomy Tube, Left arm fistula, Left knee Sx Allergies: Coded Allergies: NO KNOWN ALLERGIES (Unverified , 02/11/25) Home Meds Active Scripts Sulfamethoxazole W/Trimethopri (Bactrim Ds Tablet) 1 Tab Tb, 1 TAB PO Q12HR for 3 Days, #6 TAB Prov:FLORINA DE RESIDENT 03/11/24 Furosemide (Furosemide) 40 Mg Tab, 40 MG PO ONCE for 20 Days, #20 TAB Prov:FLORINA DE RESIDENT 03/11/24 Apixaban Base (ELIQUIS) 2.5 Mg Tab, 2.5 MG PO BID for 30 Days, #60 TAB Prov:FLORINA DE RESIDENT 03/11/24 Amiodarone HCl (Amiodarone HCl) 200 Mg Tab, 200 MG PO Q12HR for 30 Days, #60 TAB 1 Refill Prov:GLADYS HARPER MD 02/15/24 Reported Medications Ergocalciferol (VITAMIN D2) 2,000 Unit Tab, 54310 UNIT PO QWEEKLY, TAB 02/10/25 Empagliflozin (Jardiance) 10 Mg Tab, 10 MG PO QAM, TAB 02/10/25 Carvedilol (Carvedilol) 6.25 Mg Tab, 6.25 MG PO Q12HR for 30 Days, MG 02/10/25 Apixaban Base (ELIQUIS) 5 Mg Tab, 5 MG PO BID, TAB 02/10/25 Sevelamer Carbonate (Sevelamer Carbonate) 800 Mg Tab, 1 TAB PO TID for 30 Days, #90 02/11/24 Current Medications Current Medications Medications (Trade) Dose Ordered Sig/Kishan Route PRN Reason Start Time Stop Time Status Last Admin Ceftriaxone Sodium 50 ml @ 100 mls/hr DAILY@09 IV 03/05/25 09:00 03/05/25 08:29 Sevelamer HCl (Renagel) 800 mg TIDWM PO 03/05/25 08:00 03/05/25 11:52 Carvedilol (Coreg Tablet) 6.25 mg Q12HR PO 03/04/25 22:00 03/05/25 08:30 Apixaban (Eliquis) 5 mg BID PO 03/04/25 22:00 03/05/25 08:30 Empaglifozin (Jardiance) 10 mg DAILY PO 03/05/25 10:00 UNV Ondansetron HCl (Zofran) 4 mg Q4HP PRN IV NAUSEA / VOMITING 03/04/25 20:15 Acetaminophen (Tylenol Tablet) 650 mg Q6HP PRN PO PAIN SCALE 1-3 OR TEMP>100.4 03/04/25 20:15 03/04/25 22:16 Family History: Hypertension G8 MOTHER G8 FATHER Review of Systems All 12 item review of systems reviewed with the patient nonsignificant except what is mentioned in the history of present illness H&P Exam Vital Signs/I&O Vital Sign Date Time Temp Pulse Resp B/P (MAP) Pulse Ox O2 Delivery O2 Flow Rate FiO2 03/05/25 12:49 97.4 68 18 122/77 (92) 97 97.4 03/05/25 07:30 Room Air* 0 21 Intake and Output 03/04/25 03/05/25 19:00 07:00 Intake Total 450 ml Balance 450 ml Intake Oral 400 ml IV Total 50 ml # Voids 3 Labs/Diagnostic Data Labs/Diagnostic Data Laboratory Tests Test 03/05/25 05:20 03/04/25 16:52 03/04/25 15:26 Range/Units White Blood Count 12.6 H 15.2 H 4.4-10.8 10^3/uL Red Blood Count 3.50 L 3.83 L 4.5-5.90 10^6/uL Hemoglobin 11.2 L 12.1 L 13.5-17.5 g/dL Hematocrit 32.7 L 36.0 L 41.0-53.0 % Mean Corpuscular Volume 93.5 93.8 80.0-100.0 fL Mean Corpuscular Hemoglobin 32.0 31.6 28.0-32.0 pg Mean Corpuscular Hemoglobin Concent 34.2 33.7 32.0-36.0 g/dL Red Cell Distribution Width 14.2 14.4 H 11.8-14.3 % Platelet Count 320 342 140-450 10^3/uL Mean Platelet Volume 8.3 7.8 6.9-10.8 fL Neutrophils (%) (Auto) 63.9 71.4 37.0-80.0 % Lymphocytes (%) (Auto) 24.0 17.7 10.0-50.0 % Monocytes (%) (Auto) 9.9 8.9 0.0-12.0 % Eosinophils (%) (Auto) 1.3 1.1 0.0-7.0 % Basophils (%) (Auto) 0.9 0.9 0.0-2.0 % Neutrophils # (Auto) 8.0 10.9 H 1.6-8.6 10 ^3/uL Lymphocytes # (Auto) 3.0 2.7 0.4-5.4 10 ^3/uL Monocytes # (Auto) 1.2 1.4 H 0-1.3 10 ^3/uL Eosinophils # (Auto) 0.2 0.2 0-0.8 10 ^3/uL Basophils # (Auto) 0.1 0.1 0-0.2 10 ^3/uL Nucleated Red Blood Cells 0.0 0.0 % Sodium Level 137 135 L 136-145 mmol/L Potassium Level 4.0 3.7 3.5-5.1 mmol/L Chloride Level 94 L 92 L 98-107 mmol/L Carbon Dioxide Level 28 30 20-31 mmol/L Anion Gap 15 13 5-15 Blood Urea Nitrogen 55 #H 41 H 9-23 mg/dL Creatinine 9.61 H 8.06 H 0.700-1.30 mg/dL Glomerular Filtration Rate Calc 6 7 >90 mL/min BUN/Creatinine Ratio 5.7 L 5.1 L 10.0-20.0 Serum Glucose 89 114 H 74-106 mg/dL Calcium Level 9.2 9.3 8.7-10.4 mg/dL Total Bilirubin 0.6 0.2-1.0 mg/dL Aspartate Amino Transferase (AST) 20 13-40 U/L Alanine Aminotransferase (ALT) 29 7-40 U/L Alkaline Phosphatase 112 46-116 U/L Total Protein 8.1 5.7-8.2 g/dL Albumin 4.3 3.2-4.8 g/dL Urine Color Light-red Yellow Urine Clarity Ex.turbid Clear Urine pH 8.0 5.0-9.0 Urine Specific [place] 1.017 1.001-1.035 Urine Protein 3+ H Negative Urine Ketones Negative Negative Urine Blood 2+ H Negative /uL Urine Nitrite Negative Negative Urine Bilirubin Negative Negative Urine Urobilinogen Normal Negative mg/dL Urine Leukocyte Esterase 3+ Negative /uL Urine RBC 44 0 - 3 /hpf Urine Microscopic WBC 18 H 0-3 /HPF Urine Squamous Epithelial Cells None seen <5 /hpf Urine Triple Phosphate Crystals Few None Seen /hpf Urine Amorphous Crystals Few None Seen /hpf Urine Bacteria None seen None Seen /hpf Urine Mucus Few None Seen Urine Creatinine 109.95 30.0-125.0 mg/dL Urine Protein/Creatinine Ratio 5.10 Urine Sodium 32 L 40-220 mmol/L Urine Glucose Normal Normal mg/dL Urine Total Protein 561.1 H 1-14 mg/dL Prothrombin Time 11.3 9.3-11.8 sec Prothrombin Time INR 1.07 0.9-1.15 Activated Partial Thromboplast Time 31.7 24.5-34.5 SEC Phosphorus Level 5.1 2.4-5.1 mg/dL Vitamin D 25-Hydroxy 61.0 30.0-100 ng/mL Parathyroid Hormone (Intact) 817.3 H 18.4-80.1 pg/mL Microbiology Date/Time Source Procedure Growth Status 03/04/25 22:20 Nose MRSA Screen - Final Complete Assessment End-stage renal disease on hemodialysis Obstructive uropathy Right nephrostomy tube Hematuria Right pyelonephritis Chronic diastolic Congestive heart failure Diabetes mellitus type 2 Hypertension Nephrolithiasis Recommendations Resume hemodialysis every Sunday and Sunday Resume home medications Strict I&O's Blood pressure control IV antibiotics Urology consult We will continue to follow Patient seen and examined by myself. I discussed my plan of care with the patient and primary nurse at the bedside I would like to thank Frank for the consult, will follow up Plan discussed with: Patient NICOLA CANALES MD Mar 04, 2025 21:00
[2025-03-04 21:30] VITALS: BP 110/75; PULSE 71; RESP 18; TEMP 97.9; O2SAT 98
[2025-03-04 21:54] VITALS: BP 128/64; PULSE 69; RESP 17
[2025-03-04] MEDS: CARVEDILOL 3.125 MG TAB PO SCH (22:15)
[2025-03-04] MEDS: APIXABAN 5 MG TAB PO SCH (22:15)
[2025-03-04] MEDS: ACETAMINOPHEN 325 MG TAB PO PRN (22:16)
[2025-03-04 22:38] LABS: Protein, Urine 561.1 mg/dL (1-14)
--- NOTE | 2025-03-04 23:06 | DVHHP2 ---
History of Present Illness Reason for Visit: Flank pain History of Present Illness 53-year-old male presents for evaluation of flank pain. Patient endorses a one day history of right-sided flank pain with associated fever and chills. Patient had his nephrostomy tube changed two weeks ago and at that time was transferred to [place] for open heart surgery which was canceled due to possible infection. Past Medical History End-stage renal disease, hypertension, mi, thyroid, diabetes mellitus, CHF Past Surgical History Nephrostomy tube, AV fistula, knee surgery Family History Noncontributory Smoke: No ALCOHOL: none Drugs: None Lives: with Family Review of Systems Review of Systems Review of systems are currently negative otherwise addressed in HPI. Allergies: Coded Allergies: NO KNOWN ALLERGIES (Unverified , 02/11/25) Medications Current Medications Medications Dose Ordered Sig/Kishan Route Start Time Stop Time Status Last Admin Dose Admin Ceftriaxone Sodium 50 ml @ 100 mls/hr DAILY@09 IV 03/05/25 09:00 Sevelamer HCl 800 mg TIDWM PO 03/05/25 08:00 Carvedilol 6.25 mg Q12HR PO 03/04/25 22:00 03/04/25 22:15 6.25 MG Apixaban 5 mg BID PO 03/04/25 22:00 03/04/25 22:15 5 MG Empaglifozin 10 mg DAILY PO 03/05/25 10:00 UNV Ondansetron HCl 4 mg Q4HP PRN IV 03/04/25 20:15 Acetaminophen 650 mg Q6HP PRN PO 03/04/25 20:15 03/04/25 22:16 650 MG Exam Vital Signs Vital Signs Date Time Temp Pulse Resp B/P (MAP) Pulse Ox O2 Delivery O2 Flow Rate FiO2 03/04/25 22:15 69 128/84 03/04/25 21:54 17 03/04/25 21:30 97.9 98 97.9 03/04/25 17:14 Room Air* 0 21 Exam Gen: 53-year-old male in mild distress Skin: Warm, dry, normal color and texture, no rash. HEENT: Normocephalic atraumatic, mucous membranes moist and pink. Neck: Cervical and supraclavicular nodes normal without enlargement, trachea is midline, thyroid gland is normal without masses. Pulmonary: Clear to auscultation and percussion bilaterally. Cardiac: Regular rate and rhythm. No murmur Abdomen: Soft, nontender, nondistended, bowel sounds present all 4 quadrants, no guarding, no rigidity, no organomegaly. Extremities: No cyanosis, clubbing, no edema Neuro: Cranial nerves II through XII grossly intact, normal affect and speech, no focal motor deficits. Labs/Xrays ORDERING PHYSICIAN: JASON BASSETT MD PROCEDURE(s): ABPL - CT AB PEL WO CON-NO ORAL OR IV REASON: Hematuria with a history of kidney stones ORDER NUMBER(s): [id number], ACCESSION NUMBER(s): [id number] Indication: Hematuria with a history of kidney stones Comparison: None. Technique: Helical axial scans were performed through the abdomen and pelvis without intravenous contrast. Subsequently, coronal and sagittal reformations were obtained. Dose lowering techniques have been used including automated exposure control and adjustment of mA and/or kv according to patient size. FINDINGS: Limited evaluation of the vasculature and solid organs due to lack of intravenous contrast. LUNGS BASES: Clear LIVER: Normal noncontrast appearance of the liver SPLEEN: Normal GALLBLADDER: Normal PANCREAS: Normal ADRENAL GLANDS: Normal KIDNEYS: No hydronephrosis or obstructing renal stone. Adequately positioned right nephrostomy tube. Bilateral punctate nonobstructing renal stones measuring up to 3 mm. GI: Inspissated stool in the rectum with mild rectal wall thickening. No bowel dilation. Normal appendix. LYMPH NODES: Normal VASCULAR STRUCTURES: Normal BLADDER: Wall thickening with mild trabeculation. PELVIC ORGAN: Normal FREE AIR OR FREE FLUID: None OSSEOUS STRUCTURES: Multilevel degenerative changes of the spine. SOFT TISSUES: Normal DLP is 1245.55 mGy-cm. CTDI vol is 19.05 mGy. IMPRESSION: 1. No hydronephrosis or obstructing renal stone. Adequately positioned right nephrostomy tube. 2. Bilateral punctate nonobstructing renal stones measuring up to 3 mm. 3. Bladder wall thickening with mild trabeculation. Correlate with urinalysis to exclude cystitis. 4. Inspissated rectal stool could be seen with constipation. Mild rectal wall thickening concerning for developing stercoral colitis. Disimpaction suggested. Labs Test 03/04/25 16:52 03/04/25 15:26 Range/Units Urine Color Light-red Yellow Urine Clarity Ex.turbid Clear Urine pH 8.0 5.0-9.0 Urine Specific [place] 1.017 1.001-1.035 Urine Protein 3+ H Negative Urine Ketones Negative Negative Urine Blood 2+ H Negative /uL Urine Nitrite Negative Negative Urine Bilirubin Negative Negative Urine Urobilinogen Normal Negative mg/dL Urine Leukocyte Esterase 3+ Negative /uL Urine RBC 44 0 - 3 /hpf Urine Microscopic WBC 18 H 0-3 /HPF Urine Squamous Epithelial Cells None seen <5 /hpf Urine Triple Phosphate Crystals Few None Seen /hpf Urine Amorphous Crystals Few None Seen /hpf Urine Bacteria None seen None Seen /hpf Urine Mucus Few None Seen Urine Creatinine 109.95 30.0-125.0 mg/dL Urine Protein/Creatinine Ratio 5.10 Urine Sodium 32 L 40-220 mmol/L Urine Glucose Normal Normal mg/dL Urine Total Protein 561.1 H 1-14 mg/dL White Blood Count 15.2 H 4.4-10.8 10^3/uL Red Blood Count 3.83 L 4.5-5.90 10^6/uL Hemoglobin 12.1 L 13.5-17.5 g/dL Hematocrit 36.0 L 41.0-53.0 % Mean Corpuscular Volume 93.8 80.0-100.0 fL Mean Corpuscular Hemoglobin 31.6 28.0-32.0 pg Mean Corpuscular Hemoglobin Concent 33.7 32.0-36.0 g/dL Red Cell Distribution Width 14.4 H 11.8-14.3 % Platelet Count 342 140-450 10^3/uL Mean Platelet Volume 7.8 6.9-10.8 fL Neutrophils (%) (Auto) 71.4 37.0-80.0 % Lymphocytes (%) (Auto) 17.7 10.0-50.0 % Monocytes (%) (Auto) 8.9 0.0-12.0 % Eosinophils (%) (Auto) 1.1 0.0-7.0 % Basophils (%) (Auto) 0.9 0.0-2.0 % Neutrophils # (Auto) 10.9 H 1.6-8.6 10 ^3/uL Lymphocytes # (Auto) 2.7 0.4-5.4 10 ^3/uL Monocytes # (Auto) 1.4 H 0-1.3 10 ^3/uL Eosinophils # (Auto) 0.2 0-0.8 10 ^3/uL Basophils # (Auto) 0.1 0-0.2 10 ^3/uL Nucleated Red Blood Cells 0.0 % Prothrombin Time 11.3 9.3-11.8 sec Prothrombin Time INR 1.07 0.9-1.15 Activated Partial Thromboplast Time 31.7 24.5-34.5 SEC Sodium Level 135 L 136-145 mmol/L Potassium Level 3.7 3.5-5.1 mmol/L Chloride Level 92 L 98-107 mmol/L Carbon Dioxide Level 30 20-31 mmol/L Anion Gap 13 5-15 Blood Urea Nitrogen 41 H 9-23 mg/dL Creatinine 8.06 H 0.700-1.30 mg/dL Glomerular Filtration Rate Calc 7 >90 mL/min BUN/Creatinine Ratio 5.1 L 10.0-20.0 Serum Glucose 114 H 74-106 mg/dL Calcium Level 9.3 8.7-10.4 mg/dL Phosphorus Level 5.1 2.4-5.1 mg/dL Vitamin D 25-Hydroxy 61.0 30.0-100 ng/mL Parathyroid Hormone (Intact) 817.3 H 18.4-80.1 pg/mL SEPSIS Sepsis Screen Date sepsis recognized/suspect: Mar 04, 2025 Time Sepsis recognized/suspect: 1500 Recent Procedure: No On Antibiotic Therapy: No Respiratory Rate >20: No Heart Rate >90: No Temp<36 C (96.8 F) or >38.3 C: No SBP <90 or MAP <65 mmHG: No New Acute Mental Status Change: No Is the patient on CPAP, BIPAP,: No Physician Orders Ct Ab Pel Wo Con-No Oral Or Iv (03/04/25 15:11) Heplock Iv (03/04/25 15:11) Admit (03/04/25 20:06) Ceftriaxone 1gm/50ml (Rocephin) (03/05/25 09:00) Urine Bacterial Culture (03/04/25 20:13) *Dr. Kevin Zhu -[place] (03/04/25 20:13) Sevelamer (Renagel) (03/05/25 08:00) Carvedilol Tablet (Coreg Tablet) (03/04/25 22:00) Apixaban (Eliquis) (03/04/25 22:00) Empagliflozin (Jardiance) (03/05/25 10:00) Renal Standard(2gna,3gk,Lopho) (03/05/25 Breakfast) Ondansetron Hcl (Zofran) (03/04/25 20:15) Complete Blood Count (03/05/25 04:00) Condition: Stable (03/04/25 20:13) Acetaminophen Tablet (Tylenol Tablet) (03/04/25 20:15) Bedrest With Bathroom Privileg (03/04/25 20:13) Comprehensive Metabolic Panel (03/05/25 05:00) Comprehensive Metabolic Panel (03/06/25 05:00) Hepatitis B Surface Antigen (03/04/25 21:05) Mrsa Screen (03/04/25 22:15) Blood Culture (03/04/25 23:00) Vital Signs Date Time Temp Pulse Resp B/P (MAP) Pulse Ox O2 Delivery O2 Flow Rate FiO2 03/04/25 22:15 69 128/84 03/04/25 21:54 69 17 128/64 (85) 03/04/25 21:30 97.9 71 18 110/75 (87) 98 97.9 03/04/25 19:57 97.8 72 16 117/80 (92) 97 97.8 03/04/25 17:14 99 20 98 Room Air* 0 21 Laboratory Tests Test 03/04/25 15:26 White Blood Count 15.2 10^3/uL (4.4-10.8) H Medications Medications Dose Ordered Sig/Kishan Route Start Time Stop Time Status Last Admin Dose Admin Acetaminophen 650 mg Q6HP PRN PO 03/04/25 20:15 03/04/25 22:16 650 MG Apixaban 5 mg BID PO 03/04/25 22:00 03/04/25 22:15 5 MG Carvedilol 6.25 mg Q12HR PO 03/04/25 22:00 03/04/25 22:15 6.25 MG Ceftriaxone Sodium 50 ml @ 100 mls/hr ONCE ONCE IV 03/04/25 17:30 03/04/25 17:59 DC 03/04/25 18:47 100 MLS/HR Assessment/Plan Assessment/Plan Assessment Complicated UTI Acute pyelonephritis End-stage renal disease, dialysis dependent Hypertension Diabetes mellitus Obstructive uropathy status post nephrostomy tube Leukocytosis Plan Admit the patient to [facility] to the hospitalist Trina Urine bacterial culture pending Resume home medications Nephrology consultation Continue treatment per orders. Plan discussed with: Patient My Orders Orders - MAXIMILIANO GANT Procedure Category Date Status Time Admit ADMIT 03/04/25 Transmitted 20:06 Ceftriaxone 1gm/50ml PHA 03/05/25 In Process (Rocephin) 09:00 Urine Bacterial YEHUDA 03/04/25 In Process Culture 20:13 *Dr. [facility] CONS 03/04/25 Transmitted -[place] 20:13 Sevelamer (Renagel) PHA 03/05/25 In Process 08:00 Carvedilol Tablet PHA 03/04/25 In Process (Coreg Tablet) 22:00 Apixaban (Eliquis) PHA 03/04/25 In Process 22:00 Empagliflozin PHA 03/05/25 Pending (Jardiance) 10:00 Renal DIET 03/05/25 Transmitted Standard(2gna,3gk,Lopho) Breakfast Ondansetron Hcl PHA 03/04/25 In Process (Zofran) 20:15 Complete Blood Count LAB 03/05/25 Verified 04:00 Condition: Stable COURTNEY 03/04/25 In Process 20:13 Acetaminophen Tablet PHA 03/04/25 In Process (Tylenol Tablet) 20:15 Bedrest With Bathroom COURTNEY 03/04/25 In Process Privileg 20:13 Mrsa Screen YEHUDA 03/04/25 In Process 22:15 Blood Culture YEHUDA 03/04/25 Uncollected 23:00 Date of Service: Mar 04, 2025 Billing Provider: MAXIMILIANO GANT Common Visit Codes: [id number] INP/OBS CARE (MOD) MAXIMILAINO GANT Mar 04, 2025 23:06
[2025-03-05] VITALS (7 sets, daily range): BP systolic 115–140; BP diastolic 73–90; PULSE 59–86; RESP 17–18; TEMP 97.2–98; O2SAT 95–98
[2025-03-05 06:26] LABS: Hematocrit 32.7 % (41.0-53.0); Hemoglobin 11.2 g/dL (13.5-17.5); Mean Corpuscular Hemoglobin 32.0 pg (28.0-32.0); Mean Corpuscular Volume 93.5 fL (80.0-100.0); Nucleated Red Blood Cells % 0.0 %
[2025-03-05 06:45] LABS: Alanine Aminotransferase 29 U/L (7-40); Albumin 4.3 g/dL (3.2-4.8); Alkaline Phosphatase 112 U/L (46-116); Anion Gap 15 (5-15); BUN/Creatinine Ratio 5.7 (10.0-20.0); Bilirubin, Total 0.6 mg/dL (0.2-1.0); Calcium 9.2 mg/dL (8.7-10.4); Carbon Dioxide 28 mmol/L (20-31); Glucose 89 mg/dL (74-106); Potassium 4.0 mmol/L (3.5-5.1); Sodium 137 mmol/L (136-145); Total Protein 8.1 g/dL (5.7-8.2)
[2025-03-05 06:50] LABS: Blood Urea Nitrogen 55 mg/dL (9-23); Chloride 94 mmol/L (98-107)
[2025-03-05] MEDS: SEVELAMER 800 MG TAB PO SCH ×2 (08:29→17:26)
[2025-03-05] MEDS ORDERED: EMPAGLIFLOZIN 10 MG TAB PO SCH (10:00)
--- NOTE | 2025-03-05 14:28 | DVHPN2 ---
Progress Note Date Seen: Mar 05, 2025 Medical Necessity Reason Pt with a Central, PICC or Fol: No Subjective Patient reports: Other (Flank pain) Other Systems: Patient seen and examined by myself today in follow-up Objective vital signs Vital Sign Date Time Temp Pulse Resp B/P (MAP) Pulse Ox O2 Delivery O2 Flow Rate FiO2 03/05/25 12:49 97.4 68 18 122/77 (92) 97 97.4 03/05/25 07:30 Room Air* 0 21 Total Intake and Output 03/04/25 03/04/25 03/05/25 15:00 23:00 07:00 Intake Total 50 ml 400 ml Balance 50 ml 400 ml medications Current Medications Medications Dose Ordered Sig/Kishan Route Start Time Stop Time Status Last Admin Dose Admin Ceftriaxone Sodium 50 ml @ 100 mls/hr DAILY@09 IV 03/05/25 09:00 03/05/25 08:29 Sevelamer HCl 800 mg TIDWM PO 03/05/25 08:00 03/05/25 11:52 Carvedilol 6.25 mg Q12HR PO 03/04/25 22:00 03/05/25 08:30 Apixaban 5 mg BID PO 03/04/25 22:00 03/05/25 08:30 Empaglifozin 10 mg DAILY PO 03/05/25 10:00 UNV Ondansetron HCl 4 mg Q4HP PRN IV 03/04/25 20:15 Acetaminophen 650 mg Q6HP PRN PO 03/04/25 20:15 03/04/25 22:16 Examination: LUNGS:Normal, CVS:Normal, MSK:Normal laboratory and microbiology Laboratory Tests 03/05/25 05:20 Test 03/05/25 05:20 Range/Units Serum Glucose 89 74-106 mg/dL Microbiology Date/Time Source Procedure Growth Status 03/04/25 22:20 Nose MRSA Screen - Final Complete 03/04/25 16:52 Voided Urine Urine Culture - Preliminary Resulted Problem List/Assessment/Plan Problem List/Assessment/Plan End-stage renal disease on hemodialysis Obstructive uropathy Right nephrostomy tube Hematuria Right pyelonephritis Gram-negative sepsis likely ESBL Chronic diastolic Congestive heart failure Diabetes mellitus type 2 Nephrotic proteinuria likely due to diabetic nephropathy Hypertension Hyperparathyroidism, secondary to chronic kidney disease Hyperphosphatemia Nephrolithiasis Recommendations Hemodialysis tomorrow Resume home medications Strict I&O's Blood pressure control Renvela 1600 mg p.o. t.i.d. with meals Calcitriol 0.25 mcg p.o. q.day Renal vitamin IV antibiotics Urology consult We will continue to follow Plan discussed with: Patient My Orders My Orders Orders - NICOLA CANALES MD Procedure Category Date Status Time Comprehensive LAB 03/06/25 Verified Metabolic Panel 05:00 Hepatitis B Surface LAB 03/04/25 In Process Antigen 21:05 NICOLA CANALES MD Mar 05, 2025 14:28
--- NOTE | 2025-03-05 15:25 | DVHPN2 ---
Reviewed: H&P Changes from previous H/P or p: No Changes General: Per HPI Objective Vitals Vital Signs Date Time Temp Pulse Resp B/P (MAP) Pulse Ox O2 Delivery O2 Flow Rate FiO2 03/05/25 12:49 97.4 68 18 122/77 (92) 97 97.4 03/05/25 07:30 Room Air* 0 21 Intake/Output Intake and Output 03/05/25 07:00 Intake Total 450 ml Balance 450 ml Intake Oral 400 ml IV Total 50 ml # Voids 3 Exam Gen: 53-year-old male in mild distress Skin: Warm, dry, normal color and texture, no rash. HEENT: Normocephalic atraumatic, mucous membranes moist and pink. Neck: Cervical and supraclavicular nodes normal without enlargement, trachea is midline, thyroid gland is normal without masses. Pulmonary: Clear to auscultation and percussion bilaterally. Cardiac: Regular rate and rhythm. No murmur Abdomen: Soft, nontender, nondistended, bowel sounds present all 4 quadrants, no guarding, no rigidity, no organomegaly. Extremities: No cyanosis, clubbing, no edema Neuro: Cranial nerves II through XII grossly intact, normal affect and speech, no focal motor deficits. Medications Current Medications Medications Dose Ordered Sig/Kishan Route Start Time Stop Time Status Last Admin Dose Admin Ceftriaxone Sodium 50 ml @ 100 mls/hr DAILY@09 IV 03/05/25 09:00 03/05/25 08:29 100 MLS/HR Apixaban 5 mg BID PO 03/04/25 22:00 03/05/25 08:30 5 MG Empaglifozin 10 mg DAILY PO 03/05/25 10:00 UNV Ondansetron HCl 4 mg Q4HP PRN IV 03/04/25 20:15 Acetaminophen 650 mg Q6HP PRN PO 03/04/25 20:15 03/04/25 22:16 650 MG Sevelamer HCl 1,600 mg TIDWM PO 03/05/25 18:00 Multivit/Ca Carb/ B Cmplx/FA/Prenat 1 tab DAILY PO 03/06/25 10:00 Calcitriol 0.5 mcg DAILY PO 03/06/25 10:00 Carvedilol 6.25 mg Q12HR PO 03/05/25 22:00 Laboratory Results Laboratory Tests 03/05/25 05:20 Chemistry Test 03/04/25 15:26 03/05/25 05:20 Calcium Level 9.3 mg/dL (8.7-10.4) 9.2 mg/dL (8.7-10.4) Phosphorus Level 5.1 mg/dL (2.4-5.1) Albumin 4.3 g/dL (3.2-4.8) Total Protein 8.1 g/dL (5.7-8.2) Coagulation Test 03/04/25 15: Prothrombin Time 11.3 sec (9.3-11.8) Prothrombin Time INR 1.07 (0.9-1.15) Activated Partial Thromboplast Time 31.7 SEC (24.5-34.5) LFT Test 03/05/25 05:20 Alanine Aminotransferase (ALT) 29 U/L (7-40) Alkaline Phosphatase 112 U/L (46-116) Aspartate Amino Transferase (AST) 20 U/L (13-40) Total Bilirubin 0.6 mg/dL (0.2-1.0) Urinalysis Test 03/04/25 16:52 Urine Color Light-red (Yellow) Urine Clarity Ex.turbid (Clear) Urine pH 8.0 (5.0-9.0) Urine Specific [place] 1.017 (1.001-1.035) Urine Protein 3+ (Negative) H Urine Ketones Negative (Negative) Urine Blood 2+ /uL (Negative) H Urine Nitrite Negative (Negative) Urine Bilirubin Negative (Negative) Urine Urobilinogen Normal mg/dL (Negative) Urine Leukocyte Esterase 3+ /uL (Negative) Urine RBC 44 /hpf (0 - 3) Urine Microscopic WBC 18 /HPF (0-3) H Urine Squamous Epithelial Cells None seen /hpf (<5) Urine Triple Phosphate Crystals Few /hpf (None Seen) Urine Amorphous Crystals Few /hpf (None Seen) Urine Bacteria None seen /hpf (None Seen) Urine Mucus Few (None Seen) Urine Creatinine 109.95 mg/dL (30.0-125.0) Urine Protein/Creatinine Ratio 5.10 Urine Sodium 32 mmol/L (40-220) L Urine Glucose Normal mg/dL (Normal) Urine Total Protein 561.1 mg/dL (1-14) H Microbiology Microbiology Date/Time Source Procedure Growth Status 03/04/25 22:20 Nose MRSA Screen - Final Complete 03/04/25 16:52 Voided Urine Urine Culture - Preliminary Resulted Labs and/or images reviewed: Labs reviewed by me, Image(s) reviewed by me Assessment/Plan Assessment/Plan 53-year-old male presents for evaluation of flank pain. Patient endorses a one day history of right-sided flank pain with associated fever and chills. Patient had his nephrostomy tube changed two weeks ago and at that time was transferred to [place] for open heart surgery which was canceled due to possible infection. Past Medical History End-stage renal disease, hypertension, mi, thyroid, diabetes mellitus, CHF 03/05: Patient presented with flank pain right side. Extremely fevers chills. Patient had nephrostomy tube changed 2 weeks ago. Patient continues to complain of pain. On presentation patient has leukocytosis, neutrophilia. UA on admit concerning for infection with leukocyte esterase 3+, WBC 18,. Pending for urine culture. Continue IV antibiotics. Antibiotics ceftriaxone. Patient has right nephrostomy tube chronic, patient has not seen a urologist does not have an appointment coming up. Unclear we will plan is with a nephrostomy tube, patient will have to set up a urology appointment follow up. Currently there is no infection around the insertion site and no blood. We will wait for urine culture and continue IV antibiotics. Assessment Complicated UTI Acute pyelonephritis End-stage renal disease, dialysis dependent Hypertension Diabetes mellitus Obstructive uropathy status post nephrostomy tube Leukocytosis Plan Admit the patient to [facility] to the hospitalist Trina Urine bacterial culture pending Resume home medications : Eliquis 5 b.i.d., calcitriol 0.5 mcg, Coreg 6.5 b.i.d., sevelamer velocities 100 p.o.,. Nephrology consultation Continue treatment per orders. Med surge Full code Plan discussed with: Patient Date of Service: Mar 05, 2025 Billing Provider: ILAN DOMÍNGUEZ MD Common Visit Codes: [id number] INP/OBS CARE(HIGH) ILAN DOMÍNGUEZ MD Mar 05, 2025 15:25
[2025-03-05] MEDS: CARVEDILOL 3.125 MG TAB PO SCH (21:08)
[2025-03-06 05:00] VITALS: BP 118/73; PULSE 65; RESP 18; TEMP 98; O2SAT 98
[2025-03-06 06:39] LABS: Hematocrit 32.5 % (41.0-53.0); Hemoglobin 11.2 g/dL (13.5-17.5); Mean Corpuscular Hemoglobin 32.2 pg (28.0-32.0); Mean Corpuscular Volume 93.9 fL (80.0-100.0); Nucleated Red Blood Cells % 0.0 %
[2025-03-06 06:56] LABS: Alanine Aminotransferase 23 U/L (7-40); Albumin 4.1 g/dL (3.2-4.8); Anion Gap 17 (5-15); BUN/Creatinine Ratio 5.8 (10.0-20.0); Carbon Dioxide 27 mmol/L (20-31); Glucose 103 mg/dL (74-106); Potassium 3.8 mmol/L (3.5-5.1); Total Protein 7.8 g/dL (5.7-8.2)
[2025-03-06 06:57] LABS: Bilirubin, Total 0.4 mg/dL (0.2-1.0)
[2025-03-06 07:00] LABS: Alkaline Phosphatase 124 U/L (46-116); Blood Urea Nitrogen 70 mg/dL (9-23); Calcium 8.5 mg/dL (8.7-10.4); Chloride 92 mmol/L (98-107); Sodium 136 mmol/L (136-145)
[2025-03-06] MEDS ORDERED: SODIUM CHL 0.9% 1000 ML BAG XX ONE (07:00)
[2025-03-06 08:00] VITALS: PULSE 65; RESP 18; O2SAT 97
[2025-03-06 08:39] VITALS: BP 120/74; PULSE 65; RESP 18; TEMP 97.6; O2SAT 97
--- NOTE | 2025-03-06 11:12 | DVHPN2 ---
Progress Note Date Seen: Mar 06, 2025 Medical Necessity Reason Pt with a Central, PICC or Fol: No Subjective Patient reports: No new complaints Other Systems: Patient seen and examined by myself today in follow-up Patient examined hemodialysis, blood pressure stable Objective vital signs Vital Sign Date Time Temp Pulse Resp B/P (MAP) Pulse Ox O2 Delivery O2 Flow Rate FiO2 03/06/25 08:39 97.6 65 18 120/74 (89) 97 97.6 03/06/25 08:00 Room Air* 0 21 Total Intake and Output 03/05/25 03/05/25 03/06/25 15:00 23:00 07:00 Intake Total 50 ml 500 ml 600 ml Balance 50 ml 500 ml 600 ml medications Current Medications Medications Dose Ordered Sig/Kishan Route Start Time Stop Time Status Last Admin Dose Admin Ceftriaxone Sodium 50 ml @ 100 mls/hr DAILY@09 IV 03/05/25 09:00 03/05/25 08:29 100 MLS/HR Apixaban 5 mg BID PO 03/04/25 22:00 03/05/25 21:07 5 MG Empaglifozin 10 mg DAILY PO 03/05/25 10:00 Hold Ondansetron HCl 4 mg Q4HP PRN IV 03/04/25 20:15 Acetaminophen 650 mg Q6HP PRN PO 03/04/25 20:15 03/04/25 22:16 650 MG Sevelamer HCl 1,600 mg TIDWM PO 03/05/25 18:00 03/05/25 17:26 1,600 MG Multivit/Ca Carb/ B Cmplx/FA/Prenat 1 tab DAILY PO 03/06/25 10:00 Calcitriol 0.5 mcg DAILY PO 03/06/25 10:00 Carvedilol 6.25 mg Q12HR PO 03/05/25 22:00 03/05/25 21:08 6.25 MG Examination: LUNGS:Normal, CVS:Normal, MSK:Normal laboratory and microbiology Laboratory Tests 03/06/25 04:40 Test 03/06/25 04:40 Range/Units Serum Glucose 103 74-106 mg/dL Microbiology Date/Time Source Procedure Growth Status 03/05/25 08:10 Blood Blood Culture - Preliminary NO GROWTH AFTER 24 HOURS OF INCUBATION. Resulted 03/04/25 22:20 Nose MRSA Screen - Final Complete 03/04/25 16:52 Voided Urine Urine Culture - Final Citrobacter braakii Complete Problem List/Assessment/Plan Problem List/Assessment/Plan End-stage renal disease on hemodialysis Obstructive uropathy Right nephrostomy tube Hematuria Right pyelonephritis Gram-negative sepsis likely ESBL Chronic diastolic Congestive heart failure Diabetes mellitus type 2 Nephrotic proteinuria likely due to diabetic nephropathy Hypertension Hyperparathyroidism, secondary to chronic kidney disease Hyperphosphatemia Nephrolithiasis Anemia of chronic kidney disease, well compensated Recommendations Continue with UF 1-2 L as tolerated Resume home medications Strict I&O's Blood pressure control Renvela 1600 mg p.o. t.i.d. with meals Calcitriol 0.5 mcg p.o. q.day Renal vitamin IV antibiotics Urology consult We will continue to follow Plan discussed with: Patient My Orders My Orders Orders - NICOLA CANALES MD Procedure Category Date Status Time Sevelamer (Renagel) PHA 03/05/25 In Process 18:00 B-Complex W/ C & PHA 03/06/25 In Process Folic Tablet 10:00 Calcitriol Capsule PHA 03/06/25 In Process (Rocaltrol Capsule) 10:00 Carvedilol Tablet PHA 03/05/25 In Process (Coreg Tablet) 22:00 Hemodialysis Orders ORDERS 03/06/25 Transmitted 07:00 Dialysis Nursing COURT[facility] 03/06/25 In Process Message 07:00 Document Fluid Input COURTNEY 03/06/25 In Process And Outpu 07:00 NICOLA CANALES MD Mar 06, 2025 11:12
[2025-03-06 13:00] VITALS: BP 133/78; PULSE 67; RESP 18; TEMP 97.6; O2SAT 95
--- NOTE | 2025-03-06 13:27 | DVHDS2 ---
Discharge Summary Date of Admission Mar 04, 2025 at 20:06 Date of Discharge: Mar 06, 2025 Labs/Diagnostic Data: Laboratory Results Test 03/06/25 04:40 03/04/25 16:52 03/04/25 15:26 White Blood Count 12.3 10^3/uL (4.4-10.8) Red Blood Count 3.46 10^6/uL (4.5-5.90) Hemoglobin 11.2 g/dL (13.5-17.5) Hematocrit 32.5 % (41.0-53.0) Mean Corpuscular Volume 93.9 fL (80.0-100.0) Mean Corpuscular Hemoglobin 32.2 pg (28.0-32.0) Mean Corpuscular Hemoglobin Concent 34.3 g/dL (32.0-36.0) Red Cell Distribution Width 14.3 % (11.8-14.3) Platelet Count 337 10^3/uL (140-450) Mean Platelet Volume 8.4 fL (6.9-10.8) Neutrophils (%) (Auto) 63.0 % (37.0-80.0) Lymphocytes (%) (Auto) 24.3 % (10.0-50.0) Monocytes (%) (Auto) 10.3 % (0.0-12.0) Eosinophils (%) (Auto) 1.6 % (0.0-7.0) Basophils (%) (Auto) 0.8 % (0.0-2.0) Neutrophils # (Auto) 7.7 10 ^3/uL (1.6-8.6) Lymphocytes # (Auto) 3.0 10 ^3/uL (0.4-5.4) Monocytes # (Auto) 1.3 10 ^3/uL (0-1.3) Eosinophils # (Auto) 0.2 10 ^3/uL (0-0.8) Basophils # (Auto) 0.1 10 ^3/uL (0-0.2) Nucleated Red Blood Cells 0.0 % Sodium Level 136 mmol/L (136-145) Potassium Level 3.8 mmol/L (3.5-5.1) Chloride Level 92 mmol/L (98-107) Carbon Dioxide Level 27 mmol/L (20-31) Anion Gap 17 (5-15) Blood Urea Nitrogen 70 mg/dL (9-23) Creatinine 12.12 mg/dL (0.700-1.30) Glomerular Filtration Rate Calc 5 mL/min (>90) BUN/Creatinine Ratio 5.8 (10.0-20.0) Serum Glucose 103 mg/dL (74-106) Calcium Level 8.5 mg/dL (8.7-10.4) Total Bilirubin 0.4 mg/dL (0.2-1.0) Aspartate Amino Transferase (AST) 18 U/L (13-40) Alanine Aminotransferase (ALT) 23 U/L (7-40) Alkaline Phosphatase 124 U/L (46-116) Total Protein 7.8 g/dL (5.7-8.2) Albumin 4.1 g/dL (3.2-4.8) Urine Color Light-red (Yellow) Urine Clarity Ex.turbid (Clear) Urine pH 8.0 (5.0-9.0) Urine Specific [place] 1.017 (1.001-1.035) Urine Protein 3+ (Negative) Urine Ketones Negative (Negative) Urine Blood 2+ /uL (Negative) Urine Nitrite Negative (Negative) Urine Bilirubin Negative (Negative) Urine Urobilinogen Normal mg/dL (Negative) Urine Leukocyte Esterase 3+ /uL (Negative) Urine RBC 44 /hpf (0 - 3) Urine Microscopic WBC 18 /HPF (0-3) Urine Squamous Epithelial Cells None seen /hpf (<5) Urine Triple Phosphate Crystals Few /hpf (None Seen) Urine Amorphous Crystals Few /hpf (None Seen) Urine Bacteria None seen /hpf (None Seen) Urine Mucus Few (None Seen) Urine Creatinine 109.95 mg/dL (30.0-125.0) Urine Protein/Creatinine Ratio 5.10 Urine Sodium 32 mmol/L (40-220) Urine Glucose Normal mg/dL (Normal) Urine Total Protein 561.1 mg/dL (1-14) Prothrombin Time 11.3 sec (9.3-11.8) Prothrombin Time INR 1.07 (0.9-1.15) Activated Partial Thromboplast Time 31.7 SEC (24.5-34.5) Phosphorus Level 5.1 mg/dL (2.4-5.1) Vitamin D 25-Hydroxy 61.0 ng/mL (30.0-100) Parathyroid Hormone (Intact) 817.3 pg/mL (18.4-80.1) Hepatitis B Surface Antigen Negative (Negative) Other Laboratory Tests 03/06/25 04:40 Brief Hx & Hospital Course: 53-year-old male presents for evaluation of flank pain. Patient endorses a one day history of right-sided flank pain with associated fever and chills. Patient had his nephrostomy tube changed two weeks ago and at that time was transferred to [place] for open heart surgery which was canceled due to possible infection. Past Medical History End-stage renal disease, hypertension, mi, thyroid, diabetes mellitus, CHF 03/05: Patient presented with flank pain right side. Extremely fevers chills. Patient had nephrostomy tube changed 2 weeks ago. Patient continues to complain of pain. On presentation patient has leukocytosis, neutrophilia. UA on admit concerning for infection with leukocyte esterase 3+, WBC 18,. Pending for urine culture. Continue IV antibiotics. Antibiotics ceftriaxone. Patient has right nephrostomy tube chronic, patient has not seen a urologist does not have an appointment coming up. Unclear we will plan is with a nephrostomy tube, patient will have to set up a urology appointment follow up. Currently there is no infection around the insertion site and no blood. We will wait for urine culture and continue IV antibiotics. 03/06: Patient's urine culture growing Citrobacter, multi resistant. This is complicated UTI given patient has nephrostomy tube run in the right. We will put in midline, start ertapenem. Start for home health ertapenem for 10 days total. Vital signs stable, stable for discharge as per plan below. Assessment : Complicated UTI , complicated due to male, due to nephrostomy tube right renal pelvis, due to Citrobacter MDRO Acute pyelonephritis End-stage renal disease, dialysis dependent Hypertension Diabetes mellitus Obstructive uropathy status post nephrostomy tube Leukocytosis Plan: - take ciprofloxacin 500mg 2x/day for 10 days. - take home Vietnamese plain yogurt, tbsp full, twice daily for 14 days. - continue other home medications -close follow up with Urology to develop plan for right nephrostomy tube -follow up with PCP to review discharge Condition at Discharge: Fair Final Diagnosis/Problems List Complicated UTI , complicated due to male, due to nephrostomy tube right renal pelvis, due to Citrobacter MDRO Acute pyelonephritis End-stage renal disease, dialysis dependent Hypertension Diabetes mellitus Obstructive uropathy status post nephrostomy tube Leukocytosis Discharge Disposition: Home Discharge Instruct/Medications Scheduled Amiodarone HCl (Amiodarone HCl), 200 MG PO Q12HR Apixaban Base (Eliquis), 2.5 MG PO BID Apixaban Base (Eliquis), 5 MG PO BID, (Reported) Carvedilol (Carvedilol), 6.25 MG PO Q12HR, (Reported) Empagliflozin (Jardiance), 10 MG PO QAM, (Reported) Ergocalciferol (Vitamin D2), 50,000 UNIT PO QWEEKLY, (Reported) Furosemide (Furosemide), 40 MG PO ONCE Sevelamer Carbonate (Sevelamer Carbonate), 1 TAB PO TID, (Reported) Sulfamethoxazole W/Trimethopri (Bactrim Ds Tablet), 1 TAB PO Q12HR Discharge Statement: "Patient was advised to return to the ER or call 911 if any headaches, dizziness, shortness of breath, chest pain, abdominal pain, bleeding, fevers, or worsening of medical condition. Patient was counseled about treatment plan, medications, possible side effects, patientverbalized understanding. All questions were answered to the best of my ability. This discharge took greater then 30 minutes in planning, reviewing documentation, counseling the patient, and discussing with other team members." ASSESSMENT ASSESSMENT Assessment Date of Service: Mar 06, 2025 Billing Provider: ILAN DOMÍNGUEZ MD Common Visit Codes: 95788-YQN/OBS DISCH DAY >30min ILAN DOMÍNGUEZ MD Mar 06, 2025 13:27
[2025-03-06] MEDS: CALCITRIOL 0.25 MCG CAP PO SCH (13:40)
[2025-03-06] MEDS: B-COMPLEX W/ C & FOLIC ACID(NEPHROVITE TAB) PO SCH (13:40)
[2025-03-06] MEDS: BACLOFEN 10 MG TAB PO SCH (13:40)
[2025-03-06] MEDS ORDERED: CIPR500T4 PO (14:26)
[2025-03-06] MEDS: ERTAPENEM SOD INJ 1 GM in SODIUM CHL 0.9% 50 ML IV ONE (14:49)
[2025-03-06 15:37] VITALS: BP 133/78; PULSE 67; RESP 18; TEMP 97.6; O2SAT 95
[2025-03-06] MEDS: ONDANSETRON HCL 4 MG/2 ML VIAL IV PRN (16:11)
[2025-03-07] MEDS ORDERED: ERTAPENEM SOD INJ 0.5 GM in SODIUM CHL 0.9% 50 ML IV SCH (10:00)
== END 2025-03-06 17:18 | disposition home or self-care (01) | DRG 720 ==
LOC: ER 14:52 → OVERFLOW 20:06 → WEST WING 20:06
PROVIDERS: ADMIT Student in an Organized Health Care Education/Training Program; ATTEND Student in an Organized Health Care Education/Training Program
DX: A41.59 Other Gram-negative sepsis (principal); I13.2 Hypertensive heart and chronic kidney disease with heart failure and with stage 5 chronic kidney disease, or end stage renal disease; N18.6 End stage renal disease; I50.32 Chronic diastolic (congestive) heart failure; E83.39 Other disorders of phosphorus metabolism; N25.81 Secondary hyperparathyroidism of renal origin; D63.1 Anemia in chronic kidney disease; Z99.2 Dependence on renal dialysis; T83.512A Infection and inflammatory reaction due to nephrostomy catheter, initial encounter; N10 Acute pyelonephritis; E11.22 Type 2 diabetes mellitus with diabetic chronic kidney disease; E03.9 Hypothyroidism, unspecified; N13.9 Obstructive and reflux uropathy, unspecified; N20.0 Calculus of kidney; Z79.01 Long term (current) use of anticoagulants; Z82.49 Family history of ischemic heart disease and other diseases of the circulatory system; Z79.899 Other long term (current) drug therapy; Y84.8 Other medical procedures as the cause of abnormal reaction of the patient, or of later complication, without mention of misadventure at the time of the procedure; Y92.89 Other specified places as the place of occurrence of the external cause
CPT/HCPCS: 36415; 74176; 80048; 80053; 81001; 82306; 82570; 83970; 84100; 84156; 84300; 85025; 85610; 85730; 87040; 87081; 87086; 87088; 87186; 87340; 90935; 96365; G0378; J1335; J2405